=== PATIENT | female | born 1955 | race Caucasian/White ===

== ENCOUNTER 2017-09-30 11:13 | Observation (INO) | payer BC ==
[~2017-09-30] VITALS: Ht 170.2 cm; Wt 205.3 kg
[~2017-09-30 11:13] MED LIST: ADVIN25/60 INH; ALBU1AER9 PO; ATOR10TA82 PO; DICL1GEL28 TOP; ERGO1CAP35 PO; LCHC12280 TOP; LIDO4CRE10 TOP; METF-383 PO; METH5TAB2 PO; NORT10CA2 PO; NRN600 PO; OXGN; OXYC20TA32 PO; PRLSR20 PO; TIOTCAP INH
[2017-09-30 12:12] LABS: BASO % 0.2 %; BASO ABS # 0.03 K/uL (0-0.2); EOS % 1.3 %; EOS ABS # 0.16 K/uL (0-0.5); HEMATOCRIT 38.4 % (37-47); IG# 0.15 K/uL (0.00-0.02); LYMPH % 6.7 %; LYMPH ABS # 0.83 K/uL (1.2-3.4); MEAN CELL VOLUME 83.8 fL (80-100); MEAN CORPUSCULAR HGB CONC 28.6 g/dl (32-36); MONO % 4.3 %; MONO ABS # 0.53 K/uL (0.11-0.59); NEUT % 86.3 %; NEUT ABS # 10.65 K/uL (1.4-6.5); NUCLEATED RED BLOOD CELL ABS 0.03 K/uL (0-0); PLATELET COUNT 287 K/uL (130-400); RED CELL DISTRIBUTION WIDTH CV 17.5 % (11.5-14.5); RED CELL DISTRIBUTION WIDTH SD 53.4 fL (36.4-46.3); WHITE BLOOD COUNT 12.35 K/uL (4.8-10.8)
[2017-09-30 12:16] LABS: ALBUMIN 3.1 gm/dl (3.4-5.0); ALT/SGPT 19 U/L (12-78); AST/SGOT 11 U/L (15-37); BLOOD UREA NITROGEN 12 mg/dl (7-18); CALCIUM 9.7 mg/dl (8.5-10.1); CARBON DIOXIDE 33 mmol/L (21-32); CREATININE 0.87 mg/dl (0.60-1.20); GLUCOSE 69 mg/dl (70-99); LIPASE 71 U/L (73-393); POTASSIUM 4.5 mmol/L (3.5-5.1); SODIUM 136 mmol/L (136-145)
[2017-09-30 12:21] LABS: ALKALINE PHOSPHATASE 98 U/L (45-117); TOTAL PROTEIN 7.7 gm/dl (6.4-8.2)
--- NOTE | 2017-09-30 13:08 | EMERGENCY ROOM VISIT NOTE ---
History Report prepared by Doyle: Nicanor Tovar Under the Supervision of: Dr. Mark Bar M.D. First contact with patient: 11:28 Chief Complaint: SWELLING TO EXTREMITY Stated Complaint: FALL History of Present Illness The patient is a 62 year old female who presents to the Emergency Room brought in by EMS with complaints of an episodic general fall September 22, 2017. She states that she was getting in the car to go to her PCPs office when her legs gave out and buckled underneath her. She states that she twisted her right leg. Per , the patient did not hit her head, though she landed on her knees and then her back. The patient complains of low back pain, right hip pain, bilateral knee, and ankle pain. She currently rates her pain a 10/10 in severity. She states that she cannot lay flat on her back because she cannot breathe. Per , EMS was called out to help her back into her home, though he states they did not offer to take her to the hospital. The patient states that she thought her pain would get better, though it has worsened and that is why she decided to come to the ED. She states that she has not fallen since that time. The patient also has chronic psoriasis that is scaled and crusting along both legs. She states that her skin is not in any pain, although when the EMS team helped her get back into her house they wrapped her in blankets and tore some of the scaling crust off, though the wounds are wrapped in gauze and medical tape. She states that her soaks her skin and takes care of the scales and crusts. She denies following up with a home insurance agent regarding her psoriasis. The patient baseline is ambulating using a wheelchair and pivoting to get into the bed or use the bathroom. She cannot walk at all. She uses at home oxygen at 2L via [place], though the patient has had to use 3L due to increased shortness of breath. The patient has a history of COPD. She is normally on a water pill, though she stopped taking the medication after the fall, because she cannot get up to urinate. She has not been eating or drinking well. She has been avoiding anything that will cause her to urinate. Per , the patients urine is dark in color. She states her sugars have been normal. She is not currently taking any blood thinners. She denies any fevers, chills, cough , congestion, nausea, vomiting, or neck pain. She notes that she regularly takes a stool softener to assist in her bowel movements. Source of History: patient, spouse/significant other Onset: September 22, 2017 Position: other (general ) Symptom Intensity: 04/26 Quality: other (fall) Timing: other (episodic ) Associated Symptoms: + SOB, + back pain, No fevers, No chills, No cough, No neck pain, No nausea, No vomiting Note: She notes right hip pain, bilateral knee and ankle pain. She denies any skin pain. She denies any congestion. Review of Systems See HPI for pertinent positives and negatives. A total of ten systems were reviewed and were otherwise negative. Past Medical & Surgical Medical Problems: (1) Ambulatory dysfunction (2) Anemia (3) Benign essential HTN (4) COPD (chronic obstructive pulmonary disease) (5) COPD exacerbation (6) DM II (diabetes mellitus, type II), controlled (7) HLD (hyperlipidemia) (8) Hypoxia (9) Obesity hypoventilation syndrome (10) ZACKARY (obstructive sleep apnea) Family History Patient reports no known family medical history. Social History Smoking Status: Never Smoker Alcohol Use: none Drug Use: none Marital Status: Housing Status: lives with significant other Occupation Status: other Current/Historical Medications Scheduled Atorvastatin (Lipitor), 10 MG PO HS Carvedilol (Coreg), 3.125 MG PO BIDM Ergocalciferol (Vitamin D 60974 Unit), 100,000 UNIT PO WK Ferrous Fumarate (Iron), 65 MG PO DAILY Fish Oil ([place]-3), 1 CAP PO TID Fluticasone Prop/Salmeterol (Advair Diskus 250/50 60 Dose), 1 PUFF INH BID Furosemide (Lasix), 60 MG PO DAILY Gabapentin (Gabapentin), 600 MG PO TID Insulin Regular (Human) (Humulin R U-500 (Concentr), 0 INJ UD Metformin Hcl (Glucophage), 850 MG PO TIDM Methadone Hcl (Dolophine), 5 MG PO BID Nortriptyline (Pamelor), 10 MG PO TID Tiotropium [place] (Spiriva Handihaler), 18 MCG INH DAILY Scheduled PRN Omeprazole (Prilosec), 20 MG PO QAM PRN for ACID REFLUX Oxycodone Hcl (Oxycodone Hcl), 20 MG PO Q6 PRN for Pain Sennosides-Docusate Sodium (Stool Softener), Unknown Dose for Constipation Allergies Coded Allergies: No Known Allergies (Unverified , 09/30/17) Physical Exam Vital Signs Date Time Temp Pulse Resp B/P (MAP) Pulse Ox O2 Delivery O2 Flow Rate FiO2 09/30/17 14:53 85 20 157/64 98 Nasal Cannula 09/30/17 13:19 84 20 166/65 98 Nasal Cannula 09/30/17 12:14 86 09/30/17 12:08 92 15 148/72 92 Nasal Cannula 5.0 09/30/17 11:48 36.9 91 20 157/92 100 Nasal Cannula 5.0 09/30/17 11:47 98 Nasal Cannula 5.0 09/30/17 11:47 98 Nasal Cannula 5.0 Physical Exam GENERAL: Awake, alert, chronically ill-appearing, in no distress HENT: Normocephalic, atraumatic. Oropharynx dry mucus membranes. EYES: Normal conjunctiva. Sclera non-icteric. NECK: Supple. No nuchal rigidity. FROM. No JVD. RESPIRATORY: Diminished breath sounds throughout. CARDIAC: Regular rate, normal rhythm. Extremities warm and well perfused. Pulses equal. ABDOMEN: Obese abdomen, but soft and nontender, non-distended. No rebound or guarding. No masses. RECTAL: Deferred. MUSCULOSKELETAL: Chest examination reveals no tenderness. The back is symmetrical on inspection without obvious abnormality. There is no CVA tenderness to palpation. No joint edema. LOWER EXTREMITIES: Tenderness to right hip, knee, and lower leg as well as left knee and lower leg. Pain with ROM bilaterally. NEURO: Normal sensorium. No sensory or motor deficits noted. SKIN: Diffuse severe psoriasis with thick scaling and plaques. Medical Decision & Procedures ER Provider Diagnostic Interpretation: Radiology results as stated below per my review and radiologist interpretation: L KNEE 1 OR 2 VIEWS ROUTINE CLINICAL HISTORY: Fall. Bilateral lower external pain. COMPARISON: None FINDINGS: This exam is significantly compromised due to difficulty with patient positioning and suboptimal penetration related to body. Sensitivity for detection of fractures diminished but none is identified. There is moderate medial and patellofemoral compartment osteoarthritis. IMPRESSION: 1. Technically compromised exam with decreased sensitivity for fracture detection. However, no fracture identified. 2. Moderate osteoarthritis of the medial and patellofemoral compartments of the left knee. Electronically signed by: Dmitriy Gomez M.D. 09/30/2017 1:25 PM Dictated Date/Time: 09/30/2017 1:24 PM R HIP UNILATERAL 1 VIEW CLINICAL HISTORY: 62 years-old Female presenting with FALL. TECHNIQUE: Single frog-leg lateral view of the right hip was obtained. COMPARISON: None. FINDINGS: Grossly limited image quality secondary to body habitus. The right hip cannot be assessed. IMPRESSION: Insufficient image quality secondary to body habitus for assessment of the right hip. Electronically signed by: Bo Samson M.D. 09/30/2017 1:23 PM Dictated Date/Time: 09/30/2017 1:23 PM R KNEE 1 OR 2 VIEWS ROUTINE CLINICAL HISTORY: 62 years-old Female presenting with FALL. TECHNIQUE: Frontal and lateral views of the right knee were obtained. COMPARISON: None. FINDINGS: Tricompartmental degenerative changes. Suboptimal image quality secondary to positioning and body habitus. Osteopenia. No gross evidence of a displaced fracture allowing for image quality. Medial joint space loss. IMPRESSION: 1. Significantly limited image quality which negatively impacts diagnostic sensitivity the exam secondary to patient body habitus and suboptimal positioning. 2. No gross evidence of a displaced fracture. 3. Tricompartmental degenerative changes most severe in the medial compartment. Electronically signed by: Bo Samson M.D. 09/30/2017 1:25 PM Dictated Date/Time: 09/30/2017 1:24 PM CHEST ONE VIEW PORTABLE CLINICAL HISTORY: Chest pain. COMPARISON STUDY: Chest radiograph and chest CT September 22, 2015. FINDINGS: Exam is compromised due to body habitus. Diffuse interstitial thickening is noted. There is mild to moderate enlargement of the cardiac silhouette. Apparent hazy left basilar opacity is probably artifactual. Linear lower lung opacities reflect atelectasis. There is no pneumothorax. IMPRESSION: 1. Interstitial thickening which may reflect mild pleural edema. 2. Technically compromised exam due to body habitus. 3. Apparent hazy left basilar opacity which is likely artifactual. 4. Linear bibasilar opacities suggestive of atelectasis. Electronically signed by: Dmitriy Gomez M.D. 09/30/2017 1:24 PM Dictated Date/Time: 09/30/2017 1:22 PM R TIBIA/FIBULA 2 VIEWS ROUTINE CLINICAL HISTORY: 62 years-old Female presenting with pain fall. TECHNIQUE: Frontal and lateral views of the right lower leg were obtained. COMPARISON: None. FINDINGS: The proximal portion of the tibia and fibula are excluded from the [id number]. Image quality is degraded by patient body habitus. Diffusely abnormal cutis possibly indicating venous stasis. No gross evidence of a displaced fracture. Ankle mortise is grossly intact. Prominent enthesophyte at the origin of the plantar fascia. IMPRESSION: Limited image quality. Allowing for this, no gross evidence of a fracture. Electronically signed by: Bo Samson M.D. 09/30/2017 1:26 PM Dictated Date/Time: 09/30/2017 1:25 PM L TIBIA/FIBULA 2 VIEWS ROUTINE CLINICAL HISTORY: Bilateral lower external pain following fall. COMPARISON: None FINDINGS: No acute fracture of the left tibia or fibula is identified. The proximal left tibia and fibula are visualized on the knee radiographs. Exam is compromised due to body habitus. There is moderate plantar calcaneal spurring. IMPRESSION: Technically compromised exam due to body habitus but no acute fracture of the left tibia or fibula visualized. Electronically signed by: Dmitriy Gomez M.D. 09/30/2017 1:27 PM Dictated Date/Time: 09/30/2017 1:26 PM Laboratory Results 09/30/17 11:50 Red Blood Count 4.58, Mean Corpuscular Volume 83.8, Mean Corpuscular Hemoglobin 24.0, Mean Corpuscular Hemoglobin Concent 28.6, Mean Platelet Volume 9.0, Neutrophils (%) (Auto) 86.3, Lymphocytes (%) (Auto) 6.7, Monocytes (%) (Auto) 4.3, Eosinophils (%) (Auto) 1.3, Basophils (%) (Auto) 0.2, Neutrophils # (Auto) 10.65, Lymphocytes # (Auto) 0.83, Monocytes # (Auto) 0.53, Eosinophils # (Auto) 0.16, Basophils # (Auto) 0.03 09/30/17 11:50 Test 09/30/17 11:50 09/30/17 12:05 White Blood Count 12.35 K/uL (4.8-10.8) Red Blood Count 4.58 M/uL (4.2-5.4) Hemoglobin 11.0 g/dL (12.0-16.0) Hematocrit 38.4 % (37-47) Mean Corpuscular Volume 83.8 fL (80-100) Mean Corpuscular Hemoglobin 24.0 pg (25-34) Mean Corpuscular Hemoglobin Concent 28.6 g/dl (32-36) Platelet Count 287 K/uL (130-400) Mean Platelet Volume 9.0 fL (7.4-10.4) Neutrophils (%) (Auto) 86.3 % Lymphocytes (%) (Auto) 6.7 % Monocytes (%) (Auto) 4.3 % Eosinophils (%) (Auto) 1.3 % Basophils (%) (Auto) 0.2 % Neutrophils # (Auto) 10.65 K/uL (1.4-6.5) Lymphocytes # (Auto) 0.83 K/uL (1.2-3.4) Monocytes # (Auto) 0.53 K/uL (0.11-0.59) Eosinophils # (Auto) 0.16 K/uL (0-0.5) Basophils # (Auto) 0.03 K/uL (0-0.2) RDW Standard Deviation 53.4 fL (36.4-46.3) RDW Coefficient of Variation 17.5 % (11.5-14.5) Immature Granulocyte % (Auto) 1.2 % Immature Granulocyte # (Auto) 0.15 K/uL (0.00-0.02) Nucleated RBC Absolute Count (auto) 0.03 K/uL (0-0) Nucleated Red Blood Cells % 0.2 % Prothrombin Time 10.3 SECONDS (9.0-12.0) Prothromb Time International Ratio 1.0 (0.9-1.1) Anion Gap 4.0 mmol/L (3-11) Estimated GFR () 83.3 Estimated GFR (Non- 71.9 BUN/Creatinine Ratio 14.0 (10-20) Calcium Level 9.7 mg/dl (8.5-10.1) Total Bilirubin 0.6 mg/dl (0.2-1) Direct Bilirubin 0.2 mg/dl (0-0.2) Aspartate Amino Transf (AST/SGOT) 11 U/L (15-37) Alanine Aminotransferase (ALT/SGPT) 19 U/L (12-78) Alkaline Phosphatase 98 U/L (45-117) Troponin I 0.042 ng/ml (0-0.045) Pro-B-Type Natriuretic Peptide 1536 pg/ml (0-900) Total Protein 7.7 gm/dl (6.4-8.2) Albumin 3.1 gm/dl (3.4-5.0) Lipase 71 U/L (73-393) Hepatitis C Antibody Screen NEG (NEG) Urine Color YELLOW Urine Appearance CLOUDY (CLEAR) Urine pH 7.5 (4.5-7.5) Urine Specific [place] 1.019 (1.000-1.030) Urine Protein NEG (NEG) Urine Glucose (UA) NEG (NEG) Urine Ketones NEG (NEG) Urine Occult Blood 1+ (NEG) Urine Nitrite POS (NEG) Urine Bilirubin NEG (NEG) Urine Urobilinogen POS (NEG) Urine Leukocyte Esterase TRACE (NEG) Urine WBC (Auto) 1-5 /hpf (0-5) Urine RBC (Auto) 0-4 /hpf (0-4) Urine Hyaline Casts (Auto) 1-5 /lpf (0-5) Urine Epithelial Cells (Auto) >30 /lpf (0-5) Urine Bacteria (Auto) 4+ (NEG) Laboratory results reviewed by me Medications Administered Medications (Trade) Dose Ordered Sig/Wes Route Start Time Stop Time Status Last Admin Dose Admin Oxycodone HCl (Roxicodone Immediate Rel Tab) 20 mg NOW STAT PO 09/30/17 13:18 09/30/17 13:19 DC 09/30/17 13:26 20 MG Acetaminophen (Tylenol Tab) 650 mg Q4H PRN PO 09/30/17 17:15 10/30/17 17:14 18 18:31 650 MG Oxycodone HCl (Roxicodone Immediate Rel Tab) 20 mg Q6 PRN PO 09/30/17 17:15 10/30/17 17:14 09/30/17 21:23 20 MG ECG Per My Interpretation Indication: SOB/dyspnea Rate (beats per minute): 92 Rhythm: normal sinus Findings: no acute ischemic change, other (Normal axis) ED Course 1131: The patient was evaluated in room C2B. A complete history and physical exam was performed. 1505: I reassessed the patient at this time. The patient refused a CT scan. She states that her hip pain has resolved. She notes her knees and ankles still hurt. The patient would like to go to rehab. 1526: I spoke with Dr. Harrison [facility] hospitalist. We discussed the patient's case. The patient will be evaluated by the [facility] for further management. 1630: I spoke with Dr. Harrison [facility] hospitalist. We discussed the patient's case. I updated her on the patient's status. 1526: I spoke with Franchesca Ruiz PA-C [facility] hospitalist. We discussed the patient's case. The patient will be evaluated by the [facility] for further management. Medical Decision I reviewed the patient's past medical history, medications, and the nursing notes as described above. Differential diagnosis: Etiologies such as fracture, dislocation, intra-abdominal, pneumothorax, intrathoracic , intracranial, neurologic, infections, reactive airway disease, pneumonia, COPD, CHF, cardiac ischemia, pulmonary embolism, musculoskeletal, gastrointestinal, as well as other traumatic pathologies were entertained. The patient is a 62 y/o woman with a pmhx of morbid obesity, IDDM2, COPD on 3L home O2, CHF, psoriasis presents to the emergency department with complaining of b/l knee after having a mechanical fall 9 days [employer] when attempting to get in a car and fell to the ground per HPI. Patient reports waiting until today to come to the ED because she hoped her pain would get better and instead she has avoided getting up at all 2/2 pain. Her baseline mobility is normally minimal with transfers only but now she is unable to even do that and so stopped taking her Lasix because she can't get to the bathroom. On arrival the patient is chronically ill appearing in NAD, AFVSS. Hypoglycemic on arrival in the setting of her insulin pump, which improved with juice. WBC 12, nonspecific. BNP 1500s. CXR with no significant overload and patient is at her baseline O2. UA dirty and patient without urinary sx. Will defer treatment at this time. Plain films of b/l knee and Tib-fib negative for fx. Hip and pelvis nondiagnostic 2/[address] abd/pel attempted but patient unable to tolerate lying flat despite attempting with Bipap. Patient explains that she only had hip pain from sitting on the stretcher and did not have hip pain after her fall. Thus w/u, unremarkable. However, given patient's knee pain likely sprain/ contusion she is unable to make transfers at her baseline. Thus, attempt to place patient into rehab directly from ED however given the patient's obesity with weight > 400lbs unable to place today. Thus, will admit for PT/OT eval and placement. Case was d/w JUSTIN Copeland hospitalist, who will admit the patient for further management. Medication Reconcilliation Current Medication List: was personally reviewed by me Blood Pressure Screening Patient's blood pressure: Elevated blood pressure Blood pressure disposition: Elevated BP felt to be situational Consults Time Called: 1526 Consulting Physician: JUSTIN Copeland hospitalist I spoke with JUSTIN Copeland hospitalholly. We discussed the patient's case. The patient will be evaluated by the [facility] for further management. 1630: I spoke with JUSTIN Copeland hospitalholly. We discussed the patient's case. I updated her on the patient's status. Additional Consults: Time Called: 1526 Consulted Physician: ARMANDO Curran hospitalholly Additional Comments: I spoke with ARMANDO Curran hospitalholly. We discussed the patient's case. The patient will be evaluated by the [facility] for further management. Impression Primary Impression: Knee sprain, bilateral Additional Impression: Generalized weakness Scribe Attestation The scribe's documentation has been prepared under my direction and personally reviewed by me in its entirety. I confirm that the note above accurately reflects all work, treatment, procedures, and medical decision making performed by me. Departure Information Dispostion Being Evaluated By Hospitalist Referrals Beatriz Lynne MD (PCP) Patient Instructions My [facility] Problem Qualifiers
[2017-09-30] MEDS ORDERED: OXYCODONE HCL IR 5 MG TAB (IMMEDIATE RELEASE) PO STA (13:18)
--- NOTE | 2017-09-30 13:25 | DIAGNOSTIC IMAGING REPORT ---
CHEST ONE VIEW PORTABLE CLINICAL HISTORY: Chest pain. COMPARISON STUDY: Chest radiograph and chest CT September 22, 2015. FINDINGS: Exam is compromised due to body habitus. Diffuse interstitial thickening is noted. There is mild to moderate enlargement of the cardiac silhouette. Apparent hazy left basilar opacity is probably artifactual. Linear lower lung opacities reflect atelectasis. There is no pneumothorax. IMPRESSION: 1. Interstitial thickening which may reflect mild pleural edema. 2. Technically compromised exam due to body habitus. 3. Apparent hazy left basilar opacity which is likely artifactual. 4. Linear bibasilar opacities suggestive of atelectasis. Electronically signed by: Dmitriy Gomez M.D. 09/30/2017 1:24 PM Dictated Date/Time: 09/30/2017 1:22 PM
--- NOTE | 2017-09-30 13:25 | DIAGNOSTIC IMAGING REPORT ---
R HIP UNILATERAL 1 VIEW CLINICAL HISTORY: 62 years-old Female presenting with FALL. TECHNIQUE: Single frog-leg lateral view of the right hip was obtained. COMPARISON: None. FINDINGS: Grossly limited image quality secondary to body habitus. The right hip cannot be assessed. IMPRESSION: Insufficient image quality secondary to body habitus for assessment of the right hip. Electronically signed by: Bo Samson M.D. 09/30/2017 1:23 PM Dictated Date/Time: 09/30/2017 1:23 PM
--- NOTE | 2017-09-30 13:26 | DIAGNOSTIC IMAGING REPORT ---
L KNEE 1 OR 2 VIEWS ROUTINE CLINICAL HISTORY: Fall. Bilateral lower external pain. COMPARISON: None FINDINGS: This exam is significantly compromised due to difficulty with patient positioning and suboptimal penetration related to body. Sensitivity for detection of fractures diminished but none is identified. There is moderate medial and patellofemoral compartment osteoarthritis. IMPRESSION: 1. Technically compromised exam with decreased sensitivity for fracture detection. However, no fracture identified. 2. Moderate osteoarthritis of the medial and patellofemoral compartments of the left knee. Electronically signed by: Dmitriy Gomez M.D. 09/30/2017 1:25 PM Dictated Date/Time: 09/30/2017 1:24 PM
--- NOTE | 2017-09-30 13:26 | DIAGNOSTIC IMAGING REPORT ---
R KNEE 1 OR 2 VIEWS ROUTINE CLINICAL HISTORY: 62 years-old Female presenting with FALL. TECHNIQUE: Frontal and lateral views of the right knee were obtained. COMPARISON: None. FINDINGS: Tricompartmental degenerative changes. Suboptimal image quality secondary to positioning and body habitus. Osteopenia. No gross evidence of a displaced fracture allowing for image quality. Medial joint space loss. IMPRESSION: 1. Significantly limited image quality which negatively impacts diagnostic sensitivity the exam secondary to patient body habitus and suboptimal positioning. 2. No gross evidence of a displaced fracture. 3. Tricompartmental degenerative changes most severe in the medial compartment. Electronically signed by: Bo Samson M.D. 09/30/2017 1:25 PM Dictated Date/Time: 09/30/2017 1:24 PM
--- NOTE | 2017-09-30 13:28 | DIAGNOSTIC IMAGING REPORT ---
L TIBIA/FIBULA 2 VIEWS ROUTINE CLINICAL HISTORY: Bilateral lower external pain following fall. COMPARISON: None FINDINGS: No acute fracture of the left tibia or fibula is identified. The proximal left tibia and fibula are visualized on the knee radiographs. Exam is compromised due to body habitus. There is moderate plantar calcaneal spurring. IMPRESSION: Technically compromised exam due to body habitus but no acute fracture of the left tibia or fibula visualized. Electronically signed by: Dmitriy Gomez M.D. 09/30/2017 1:27 PM Dictated Date/Time: 09/30/2017 1:26 PM
--- NOTE | 2017-09-30 13:28 | DIAGNOSTIC IMAGING REPORT ---
R TIBIA/FIBULA 2 VIEWS ROUTINE CLINICAL HISTORY: 62 years-old Female presenting with pain fall. TECHNIQUE: Frontal and lateral views of the right lower leg were obtained. COMPARISON: None. FINDINGS: The proximal portion of the tibia and fibula are excluded from the [id number]. Image quality is degraded by patient body habitus. Diffusely abnormal cutis possibly indicating venous stasis. No gross evidence of a displaced fracture. Ankle mortise is grossly intact. Prominent enthesophyte at the origin of the plantar fascia. IMPRESSION: Limited image quality. Allowing for this, no gross evidence of a fracture. Electronically signed by: Bo Samson M.D. 09/30/2017 1:26 PM Dictated Date/Time: 09/30/2017 1:25 PM
[2017-09-30] MEDS ORDERED: OPTIRAY 320 IV PRN (14:00)
[2017-09-30] MEDS ORDERED: FERR18TA2 PO (14:02)
[2017-09-30] MEDS ORDERED: SPRIN/30 INH (14:02)
[2017-09-30] MEDS ORDERED: SENNTAB23 (14:02)
[2017-09-30] MEDS ORDERED: ADVIN25/60 INH (14:02)
[2017-09-30] MEDS ORDERED: ERGO500037 PO (14:02)
[2017-09-30] MEDS ORDERED: FRS/40 PO (17:11)
[2017-09-30] MEDS ORDERED: INSUINJ2 INJ (17:11)
[2017-09-30] MEDS ORDERED: CARV3.122 PO (17:11)
[2017-09-30] MEDS ORDERED: DEXTROSE 50% 50 ML SYR IV PRN (17:15)
[2017-09-30] MEDS ORDERED: ONDANSETRON INJ 2 MG/ML 2 ML VIAL IV PRN (17:15)
[2017-09-30] MEDS ORDERED: GLUCOSE 40% GEL 15 GM TUBE PO PRN (17:15)
[2017-09-30] MEDS ORDERED: MAGNESIUM HYDROXIDE SUSP 30 ML UDC PO PRN (17:15)
[2017-09-30] MEDS ORDERED: GLUCAGON FOR INJ 1 MG VIAL SQ PRN (17:15)
[2017-09-30] MEDS ORDERED: GLUCOSE 10 TABS/TUBE PO PRN (17:15)
--- NOTE | 2017-09-30 17:42 | History and Physical ---
History & Physical Date & Time of Service: Sep 30, 2017 at 17:03 Chief Complaint: FALL Primary Care Physician: Emilia Posada DO History of Present Illness This is a 62 yo F with PMHx of diabetes type 2 on insulin pump and metformin, CKD stage III, hypertension, hyperlipidemia, severe psoriasis, COPD, wears chronic supplemental oxygen at 2 L via NC, anemia, morbid obesity, obesity hypoventilation syndrome, chronic pain, osteo-arthritis who presents to the ER after a fall she sustained on September 22. At that time the patient was attempting to ambulate and pivot to get into the car to go to a doctor's appointment. She reports being unable to ambulate on her own for some time now, and is essentially wheelchair bound. In the past 4 days her right knee pain has become so significant she has been unable to pivot at all. She has also stopped taking her Lasix as normally scheduled because she has been unable to pivot and therefore cannot get to the bathroom. Her last bowel movement was 8 days ago as well. Her oral intake has been poor although she has been maintaining fluid intake. The patient was attempted to be placed in rehab by case management in the ER, however there are no available rehab facilities which can accommodate her due to morbid obesity. UA appears slightly dirty, however the patient denies any urinary symptoms. A Barboza has been placed in the ER due to inability to ambulate to the bathroom. Past Medical/Surgical History Medical Problems: (1) Ambulatory dysfunction (2) Anemia (3) Benign essential HTN (4) COPD (chronic obstructive pulmonary disease) (5) Morbid obesity (6) DM II (diabetes mellitus, type II), controlled (7) HLD (hyperlipidemia) (8) Hypoxia (9) Obesity hypoventilation syndrome (10) ZACKARY (obstructive sleep apnea) Family History FHx: COPD (chronic obstructive pulmonary disease) FHx: ovarian cancer FHx: prostate cancer Social History Smoking Status: Never Smoker Smokeless Tobacco Use: No Alcohol Use: none Drug Use: none Marital Status: Occupational Status: other Allergies Coded Allergies: No Known Allergies (Unverified , 09/30/17) Home Medications Scheduled Atorvastatin (Lipitor), 10 MG PO HS Carvedilol (Coreg), 3.125 MG PO BIDM Ergocalciferol (Vitamin D 68787 Unit), 100,000 UNIT PO WK Ferrous Fumarate (Iron), 65 MG PO DAILY Fish Oil (Hamilton-3), 1 CAP PO TID Fluticasone Prop/Salmeterol (Advair Diskus 250/50 60 Dose), 1 PUFF INH BID Furosemide (Lasix), 60 MG PO DAILY Gabapentin (Gabapentin), 600 MG PO TID Insulin Regular (Human) (Humulin R U-500 (Concentr), 0 INJ UD Metformin Hcl (Glucophage), 850 MG PO TIDM Methadone Hcl (Dolophine), 5 MG PO BID Nortriptyline (Pamelor), 10 MG PO TID Tiotropium [place] (Spiriva Handihaler), 18 MCG INH DAILY Scheduled PRN Omeprazole (Prilosec), 20 MG PO QAM PRN for ACID REFLUX Oxycodone Hcl (Oxycodone Hcl), 20 MG PO Q6 PRN for Pain Sennosides-Docusate Sodium (Stool Softener), Unknown Dose for Constipation Review of Systems Constitutional: No fever, sweats or chills Eyes: No diplopia, no worsening or blurred vision ENT: normal hearing, no trouble swallowing Respiratory: No cough, sputum, dyspnea at rest or on exertion Cardiovascular: No chest pain, tightness or palpitations Abdomen: No pain, nausea, vomiting, diarrhea or constipation Musculoskeletal: See HPI Neurologic: + weakness, + numbness/tingling in extremities, uses wheelchair for ambulation Psychiatric: No anxiety or depression Skin: No rash or itch Physical Exam Vital Signs Date Time Temp Pulse Resp B/P (MAP) Pulse Ox O2 Delivery O2 Flow Rate FiO2 09/30/17 14:53 85 20 157/64 98 Nasal Cannula 09/30/17 13:19 84 20 166/65 98 Nasal Cannula 09/30/17 12:14 86 09/30/17 12:08 92 15 148/72 92 Nasal Cannula 5.0 09/30/17 11:48 36.9 91 20 157/92 100 Nasal Cannula 5.0 09/30/17 11:47 98 Nasal Cannula 5.0 09/30/17 11:47 98 Nasal Cannula 5.0 General: awake, alert, no apparent distress, morbidly obese Head: Normocephalic, atraumatic ENT: PERRL, EOMI, no pharyngeal exudate, mucous membranes moist Chest: Clear to auscultation, on room air, no adventitious breath sounds Cardiac: Regular rate and rhythm, + systolic murmur, no JVD, normal peripheral pulses, good capillary refill Abdominal: NABS x 4 quadrants, soft, nontender to palpation, no rebound, guarding or tenderness Extremities: + severe psoriasis with plaques overlying BLE and mild plaques over the elbows and forearms. + Peripheral edema but difficult to assess due to plaques and body habitus. No erythema, calfs nontender to palpation Psych: Normal mood and affect Neuro: AAO x 3, pt is unable to stand for weight or to work with PT/OT, speech is clear, + diminished sensation to light touch in BLE and hands. Diagnostics Laboratory Results Results Past 24 Hours Test 09/30/17 11:50 09/30/17 12:05 09/30/17 13:30 09/30/17 14:07 Range/Units White Blood Count 12.35 4.8-10.8 K/uL Red Blood Count 4.58 4.2-5.4 M/uL Hemoglobin 11.0 12.0-16.0 g/dL Hematocrit 38.4 37-47 % Mean Corpuscular Volume 83.8 80-100 fL Mean Corpuscular Hemoglobin 24.0 25-34 pg Mean Corpuscular Hemoglobin Concent 28.6 32-36 g/dl Platelet Count 287 130-400 K/uL Mean Platelet Volume 9.0 7.4-10.4 fL Neutrophils (%) (Auto) 86.3 % Lymphocytes (%) (Auto) 6.7 % Monocytes (%) (Auto) 4.3 % Eosinophils (%) (Auto) 1.3 % Basophils (%) (Auto) 0.2 % Neutrophils # (Auto) 10.65 1.4-6.5 K/uL Lymphocytes # (Auto) 0.83 1.2-3.4 K/uL Monocytes # (Auto) 0.53 0.11-0.59 K/uL Eosinophils # (Auto) 0.16 0-0.5 K/uL Basophils # (Auto) 0.03 0-0.2 K/uL RDW Standard Deviation 53.4 36.4-46.3 fL RDW Coefficient of Variation 17.5 11.5-14.5 % Immature Granulocyte % (Auto) 1.2 % Immature Granulocyte # (Auto) 0.15 0.00-0.02 K/uL Nucleated RBC Absolute Count (auto) 0.03 0-0 K/uL Nucleated Red Blood Cells % 0.2 % Sodium Level 136 136-145 mmol/L Potassium Level 4.5 3.5-5.1 mmol/L Chloride Level 99 98-107 mmol/L Carbon Dioxide Level 33 21-32 mmol/L Anion Gap 4.0 3-11 mmol/L Blood Urea Nitrogen 12 7-18 mg/dl Creatinine 0.87 0.60-1.20 mg/dl Estimated GFR () 83.3 Estimated GFR (Non- 71.9 BUN/Creatinine Ratio 14.0 10-20 Random Glucose 69 70-99 mg/dl Calcium Level 9.7 8.5-10.1 mg/dl Total Bilirubin 0.6 0.2-1 mg/dl Direct Bilirubin 0.2 0-0.2 mg/dl Aspartate Amino Transf (AST/SGOT) 11 15-37 U/L Alanine Aminotransferase (ALT/SGPT) 19 12-78 U/L Alkaline Phosphatase 98 45-117 U/L Troponin I 0.042 0-0.045 ng/ml Pro-B-Type Natriuretic Peptide 1536 0-900 pg/ml Total Protein 7.7 6.4-8.2 gm/dl Albumin 3.1 3.4-5.0 gm/dl Lipase 71 73-393 U/L Urine Color YELLOW Urine Appearance CLOUDY CLEAR Urine pH 7.5 4.5-7.5 Urine Specific Esmond 1.019 1.000-1.030 Urine Protein NEG NEG Urine Glucose (UA) NEG NEG Urine Ketones NEG NEG Urine Occult Blood 1+ NEG Urine Nitrite POS NEG Urine Bilirubin NEG NEG Urine Urobilinogen POS NEG Urine Leukocyte Esterase TRACE NEG Urine WBC (Auto) 1-5 0-5 /hpf Urine RBC (Auto) 0-4 0-4 /hpf Urine Hyaline Casts (Auto) 1-5 0-5 /lpf Urine Epithelial Cells (Auto) >30 0-5 /lpf Urine Bacteria (Auto) 4+ NEG Bedside Glucose 40 70 70-90 mg/dl Test 09/30/17 14:47 Range/Units Bedside Glucose 91 70-90 mg/dl Microbiology Results 09/30/17 Urine Culture, Received Pending Diagnostic Radiology L TIBIA/FIBULA 2 VIEWS ROUTINE CLINICAL HISTORY: Bilateral lower external pain following fall. COMPARISON: None FINDINGS: No acute fracture of the left tibia or fibula is identified. The proximal left tibia and fibula are visualized on the knee radiographs. Exam is compromised due to body habitus. There is moderate plantar calcaneal spurring. IMPRESSION: Technically compromised exam due to body habitus but no acute fracture of the left tibia or fibula visualized. Electronically signed by: Dmitriy Gomez M.D. 09/30/2017 1:27 PM Dictated Date/Time: 09/30/2017 1:26 PM The status of this report is Signed. R TIBIA/FIBULA 2 VIEWS ROUTINE CLINICAL HISTORY: 62 years-old Female presenting with pain fall. TECHNIQUE: Frontal and lateral views of the right lower leg were obtained. COMPARISON: None. FINDINGS: The proximal portion of the tibia and fibula are excluded from the apkgx-gn-lmax. Image quality is degraded by patient body habitus. Diffusely abnormal cutis possibly indicating venous stasis. No gross evidence of a displaced fracture. Ankle mortise is grossly intact. Prominent enthesophyte at the origin of the plantar fascia. IMPRESSION: Limited image quality. Allowing for this, no gross evidence of a fracture. Electronically signed by: Bo Samson M.D. 09/30/2017 1:26 PM Dictated Date/Time: 09/30/2017 1:25 PM The status of this report is Signed. CHEST ONE VIEW PORTABLE CLINICAL HISTORY: Chest pain. COMPARISON STUDY: Chest radiograph and chest CT September 22, 2015. FINDINGS: Exam is compromised due to body habitus. Diffuse interstitial thickening is noted. There is mild to moderate enlargement of the cardiac silhouette. Apparent hazy left basilar opacity is probably artifactual. Linear lower lung opacities reflect atelectasis. There is no pneumothorax. IMPRESSION: 1. Interstitial thickening which may reflect mild pleural edema. 2. Technically compromised exam due to body habitus. 3. Apparent hazy left basilar opacity which is likely artifactual. 4. Linear bibasilar opacities suggestive of atelectasis. Electronically signed by: Dmitriy Gomez M.D. 09/30/2017 1:24 PM Dictated Date/Time: 09/30/2017 1:22 PM The status of this report is Signed. R KNEE 1 OR 2 VIEWS ROUTINE CLINICAL HISTORY: 62 years-old Female presenting with FALL. TECHNIQUE: Frontal and lateral views of the right knee were obtained. COMPARISON: None. FINDINGS: Tricompartmental degenerative changes. Suboptimal image quality secondary to positioning and body habitus. Osteopenia. No gross evidence of a displaced fracture allowing for image quality. Medial joint space loss. IMPRESSION: 1. Significantly limited image quality which negatively impacts diagnostic sensitivity the exam secondary to patient body habitus and suboptimal positioning. 2. No gross evidence of a displaced fracture. 3. Tricompartmental degenerative changes most severe in the medial compartment. Electronically signed by: Bo Samson M.D. 09/30/2017 1:25 PM Dictated Date/Time: 09/30/2017 1:24 PM The status of this report is Signed. R HIP UNILATERAL 1 VIEW CLINICAL HISTORY: 62 years-old Female presenting with FALL. TECHNIQUE: Single frog-leg lateral view of the right hip was obtained. COMPARISON: None. FINDINGS: Grossly limited image quality secondary to body habitus. The right hip cannot be assessed. IMPRESSION: Insufficient image quality secondary to body habitus for assessment of the right hip. Electronically signed by: Bo Samson M.D. 09/30/2017 1:23 PM Dictated Date/Time: 09/30/2017 1:23 PM The status of this report is Signed. EKG Normal sinus rhythm Normal ECG When compared with ECG of 21-JUN-2016 18:37, No significant change was found Confirmed by TRUDI MEDINA ([id number]) on 09/30/2017 12:36:36 PM Vent. rate 92 BPM VA interval 166 ms QRS duration 90 ms QT/QTc 368/455 ms P-R-T axes 54 34 54 Impression Assessment and Plan This is a 62 yo F with PMHx of diabetes type 2 on insulin pump and metformin, CKD stage III, hypertension, hyperlipidemia, severe psoriasis, COPD, wears chronic supplemental oxygen at 2 L via NC, anemia, morbid obesity, obesity hypoventilation syndrome, chronic pain, osteo-arthritis who presents to the ER after a fall she sustained on September 22. S/p Fall Joint Pain - Admit for obs for placement to rehab - PT/OT on board - Pain management with home medications including methadone, oxycodone which she uses for chronic pain. - Imaging reviewed - negative for any acute fractures DM II - Glycemic pharmacy consult - poor diet has caused glucose to drop down into the 40s upon presentation to the ER, improved up to 90. Insulin pump in place on hold for hypoglycemia CKD stage III - Cr. stable 0.87 upon admission - likely improved due to missing lasix dose for several days. - Resume lasix and trend prp QOD. ? UTI - UA appears dirty. Possibly poor sample per nursing due to body habitus. Await Urine culture. - No antibiotics at this time. WBC 12K, afebrile. No urinary symptoms Constipation - bowel regimen with miralax daily, dulcolax tabs. Can use MOM prn. HTN HLD - Continue coreg, lasix 60 mg PO daily, will give lasix 40 mg IV as she has missed several doses and has a barboza cath in place now. She admits to feeling slightly more short of breath and O2 increased from 2 L to 2.5-3L at home prior to coming here. COPD - Continue chronic o2 at 2L, Advair, spiriva. No wheezing upon exam. Severe psoriasis - PT does not follow with dermatology as an outpatient. Would recommend this be followed up upon discharge from the hospital. DVT ppx: lovenox CODE STATUS: FULL CODE Disposition: From home, PT/OT ROSARIO foreman to assist with dc planning to rehab facility. CM in ER unable to place due to morbid obesity and facility accommodations. Resuscitation Status VTE Prophylaxis Will order VTE Prophylaxis: Yes Reviewed: Pt Seen/Exam by Me History Pt is s/p fall several days ago and worsening pain that has caused increased ambulatory dysfxn. States that she has pain all of the time but that this is worse. Tolerating PO without issue. Denies chest pain, SOB. Agree with HPI/ROS as noted by PA. General Appearance: no apparent distress, obese Eye Exam: bilateral eye normal inspection, bilateral eye other (nml sclera) Respiratory: normal breath sounds, no respiratory distress Cardiovascular: normal peripheral pulses, regular rate, rhythm Gastrointestinal: non tender, soft Extremities: other (chronic LE edema, TTP related to plaques) Neurologic/Psychiatric: alert, oriented x 3 Skin Characteristics: warm/dry, other (scaling c/w plaque psoriasis) Assessment/Plan Agree with plan as outlined above Weakness and ambulatory dysfxn s/p fall in the setting of morbid obesity and OA Attempted placement from the ED, however no rehab facility in the region is equipped for pts with this level of morbid obesity CM to continue working on this as able
[2017-09-30] MEDS ORDERED: BISACODYL 10 MG SUPP PR PRN (17:45)
[2017-09-30] MEDS ORDERED: OMEG10007 PO (17:56)
[2017-09-30] MEDS ORDERED: PHARMACY GLYCEMIC MGMT CONSULT PRN (17:57)
[2017-09-30] MEDS: ACETAMINOPHEN 325 MG TAB PO PRN (18:31)
[2017-09-30] MEDS ORDERED: IV FLUIDS COMPLETED PRN (20:30)
[2017-09-30] MEDS ORDERED: FUROSEMIDE INJ 40 MG in SYRINGE 0 ML IV ONE (21:00)
[2017-09-30] MEDS ORDERED: BISACODYL 5 MG TABEC PO ONE (21:00)
[2017-09-30] MEDS: METHADONE HCL 5 MG TAB PO SCH (21:23)
[2017-09-30] MEDS: OXYCODONE HCL IR 5 MG TAB (IMMEDIATE RELEASE) PO PRN (21:23)
[2017-09-30] MEDS: FLUTICASONE/SALMETEROL 250/50 (ADVAIR) 14 PUFF/1 INHALER INH SCH (21:25)
[2017-09-30] MEDS: ATORVASTATIN 10 MG TAB PO SCH (21:25)
[2017-09-30] MEDS: OMEGA-3 (PURIFIED FISH OIL) 1 GM CAP PO SCH (21:26)
[2017-09-30] MEDS: NORTRIPTYLINE HCL 10 MG CAP PO SCH (21:26)
[2017-09-30] MEDS: CARVEDILOL 3.125 MG TAB PO SCH (21:27)
[2017-09-30] MEDS: GABAPENTIN 600 MG TAB PO SCH (21:27)
[2017-09-30] MEDS: ENOXAPARIN 40 MG/0.4 ML SYR SQ SCH (21:33)
[2017-09-30 21:44] VITALS: BP 177/72; PULSE 79; TEMP 36.7; O2SAT 98
[2017-09-30 21:49] VITALS: BMI 70.9
[2017-09-30 23:03] VITALS: BP 164/69; PULSE 79; TEMP 36.6; O2SAT 98
[2017-10-01] MEDS: INSULIN ASPART 100 UNITS/ML 3 ML PEN SC SCH ×6 (01:37→21:52)
[2017-10-01] MEDS: ACETAMINOPHEN 325 MG TAB PO PRN ×3 (03:07→18:32)
[2017-10-01] MEDS: OXYCODONE HCL IR 5 MG TAB (IMMEDIATE RELEASE) PO PRN ×4 (03:43→23:45)
[2017-10-01 07:22] LABS: CALCIUM 9.3 mg/dl (8.5-10.1); CREATININE 1.05 mg/dl (0.60-1.20); POTASSIUM 4.3 mmol/L (3.5-5.1)
[2017-10-01 07:32] VITALS: BP 153/80; PULSE 81; TEMP 36.5; O2SAT 97
[2017-10-01 08:15] LABS: HEMOGLOBIN A1C 5.3 % (4.5-5.6)
[2017-10-01] MEDS ORDERED: HUMULIN R U SC SCH ×2 (08:30→17:00)
[2017-10-01] MEDS: FLUTICASONE/SALMETEROL 250/50 (ADVAIR) 14 PUFF/1 INHALER INH SCH ×2 (08:52→20:10)
[2017-10-01] MEDS: CARVEDILOL 3.125 MG TAB PO SCH ×2 (08:53→18:00)
[2017-10-01] MEDS: TIOTROPIUM BROMIDE 5 PUFF/90 MCG INH INH SCH (08:53)
[2017-10-01] MEDS: FERROUS FUMARATE CONTR REL CAP 65 MG CAPCR PO SCH (08:54)
[2017-10-01] MEDS: METHADONE HCL 5 MG TAB PO SCH ×2 (08:54→20:05)
[2017-10-01] MEDS: METFORMIN HCL 850 MG TAB PO SCH ×3 (08:54→18:00)
[2017-10-01] MEDS: FUROSEMIDE 20 MG TAB PO SCH (08:54)
[2017-10-01] MEDS: POLYETHYLENE (MIRALAX) 17 GM PACK PO SCH ×2 (08:55→08:59)
[2017-10-01] MEDS: PANTOprazole SOD 40 MG TAB PO SCH (08:55)
[2017-10-01] MEDS: NORTRIPTYLINE HCL 10 MG CAP PO SCH ×3 (08:55→20:11)
[2017-10-01] MEDS: OMEGA-3 (PURIFIED FISH OIL) 1 GM CAP PO SCH ×3 (08:55→20:07)
[2017-10-01] MEDS: GABAPENTIN 600 MG TAB PO SCH ×3 (08:55→20:07)
[2017-10-01] MEDS ORDERED: NURSING VERBAL MED ORDER ONE (10:45)
[2017-10-01] MEDS ORDERED: MICONAZOLE NITRATE POWDER 43 GM EXT PRN (11:00)
--- NOTE | 2017-10-01 15:27 | Pharmacy Progress Note ---
Glycemic Control Progress Note Date of Service Oct 01, 2017. Scope Glycemic Pharmacist consulted for glycemic control to write orders per [facility] inpatient glycemic control protocol. Objective Accuchecks BSG (last 24hrs): Test 09/30/17 16:42 09/30/17 17:10 09/30/17 19:31 09/30/17 20:32 Bedside Glucose 57 mg/dl (70-90) 76 mg/dl (70-90) 104 mg/dl (70-90) 80 mg/dl (70-90) Test 10/01/17 01:05 10/01/17 04:27 10/01/17 06:17 10/01/17 07:53 Bedside Glucose 135 mg/dl (70-90) 158 mg/dl (70-90) 180 mg/dl (70-90) Random Glucose 172 mg/dl (70-99) Test 10/01/17 11:22 Bedside Glucose 197 mg/dl (70-90) HbA1c: Test 10/01/17 06:17 Hemoglobin A1c 5.3 % (4.5-5.6) Outpatient Anti-Diabetic Meds U-500 insulin pump Per outpatient [facility] records * Basal rates * 2.4 units/hr *of U-500* 4983-1085 (note: this is actually 12 units/hr *of insulin*) * 2.1 units/hr *of U-500* 5851-8991 (note: this is actually 10.5 units/hr *of insulin*) * Total basal insulin dose = 273 units *of insulin*/day * Bolus doses * 5 units *of U-500* AC (note: this is actually 25 units *of insulin*) * Total bolus insulin dose = 75 units *of insulin*/day * Total daily dose ~348 units *of insulin*/day Assessment & Plan ASSESSMENT: * Significant and persistent hypoglycemia noted yesterday despite insulin pump being turned off ~1200. Pump was completely removed from patient at ~ 2100 * This is likely 2nd basal effects of U-500 persisting despite discontinuation of pump * HbA1c low at 5.3% - this either indicates good outpatient control or frequent outpatient hypoglycemia. Would anticipate the latter (frequent outpatient hypoglycemia) as patient was admitted w BSG of 40 mg/dL * U-500 has characteristics of both basal and prandial insulin. Will therefore use subQ U-500 for basal/prandial insulin and Novolog as correctional insulin only * U-500 as SC dosing is usually administered at 2-3 meals per day (higher end of range if total daily dose of insulin required is higher) * Will utilize BIDM dosing as patient is at risk for hypoglycemia * BSG's gradually increasing overnight, up to 180 mg/dL at breakfast - OK to resume insulin * Total daily outpatient dose ~ 373 units (significantly weighted towards basal , which may be contributing to hypoglycemia) * Will significantly reduce as patient high risk for hypoglycemia and over- estimating U-500 will have effects persist 2nd basal characteristics * Will have very tight correction factor as possibly underestimating requirements for U-500 insulin * Spoke w (Anil) - aware potentially underestimating U-500 dose and may require short-term IV insulin. OK'd starting insulin drip for any BSG >300 mg/ dL or two consecutive BSG's >250 mg/dL. If insulin drip is required, will likely need to be maintained overnight, but will hope to discontinue tomorrow PLAN FOR INPATIENT GLYCEMIC CONTROL: * U-500 insulin administered as 70 units *insulin* at breakfast * Additional 70 units *insulin* at dinner if BSG >140 mg/dL (decrease to 35 units for BSG 120-140 mg/dL and hold for BSG < 120 mg/dL) * Bolus insulin * NovoLog per scale ACHS and two overnight checks * Goal Range: Low 120 mg/dL - High 160 mg/dL * Correction Factor: 5 mg/dL/unit RECOMMENDATIONS FOR DISCHARGE: * Patient may require adjustment of U-500 pump settings on discharge, including but not limited to reduction of basal rates * Please note that the plan above was derived based on current level of insulin resistance and hospital stress. These recommendations are appropriate for inpatient admission only. Plan of care upon discharge will need to be reassessed to avoid potential outpatient hypo/hyperglycemia. Thank you.
[2017-10-01 16:18] VITALS: BP 161/68; PULSE 80; TEMP 37; O2SAT 95
--- NOTE | 2017-10-01 17:26 | Family Medicine Progress Note ---
Progress Note Date of Service Oct 01, 2017. Subjective Pt evaluation today including: conversation w/ patient, physical exam, chart review, lab review The patient was seen and examined at bedside. No acute overnight events. Here for a fall. Feels fine. After admission had a few blood sugars in the 40s. Insulin pump was stopped. Patient is resting comfortably in bed. Denies having any pain. Eating and urinating well. Plan of care was described to the patient and all questions were answered. Constitutional: No fever, No chills, No sweats Eyes: No worsening of vision ENT: No hearing loss Respiratory: No cough, No sputum Cardiovascular: No chest pain Abdomen: No pain, No nausea, No vomiting, No diarrhea, No constipation Female : No dysuria Neurologic: No memory loss Psychiatric: No depression symptoms Heme: No abnormal bleeding/bruising Endo: No excessive thirst, No excessive urination Objective Physical Exam Notes: General: awake, alert, no apparent distress, morbidly obese Head: Normocephalic, atraumatic ENT: PERRL, EOMI, no pharyngeal exudate, mucous membranes moist Chest: Clear to auscultation, on room air, no adventitious breath sounds Cardiac: Regular rate and rhythm, + systolic murmur, no JVD, normal peripheral pulses, good capillary refill Abdominal: NABS x 4 quadrants, soft, nontender to palpation, no rebound, guarding or tenderness. Insulin pump has been removed. Extremities: + plaques overlying BLE and mild plaques over the elbows and forearms. + Peripheral edema but difficult to assess due to plaques and body habitus. No erythema, calfs nontender to palpation Psych: Normal mood and affect Neuro: AAO x 3, pt is unable to stand for weight or to work with PT/OT, speech is clear. Assessment and Plan 62F with PMHx of DM2 on insulin pump and metformin, CKD stage III, hypertension , hyperlipidemia, severe psoriasis, COPD, wears chronic supplemental oxygen at 2 L via NC, anemia, morbid obesity, obesity hypoventilation syndrome, chronic pain, osteo-arthritis who presents to the ER after a fall she sustained on September 22. Ambulatory Dysfunction - S/p Fall Admit for obs for placement to rehab PT/OT on board Pain management with home medications including methadone, oxycodone which she uses for chronic pain. Imaging reviewed - negative for any acute fractures DM2 w neuropathy Patients blood sugar dipped into the 40s after admission, insulin pump removed. If BS peaks into the 200s , I spoke with pharmacy, we will do an ISS to determine an exact amount of insulin that the patient requires. Pharmacy has placed the appropriate glycemic orders in. c/w Gabapentin 600mg TID c/w Nortriptyline 10mg TID. CKD stage III Cr. stable 0.87 upon admission - likely improved due to missing Lasix dose for several days. Resume Lasix. UTI Urine is growing E. Coli, will add Rocephin daily. Day #1 Constipation Bowel regimen with miralax daily, dulcolax tabs. Can use MOM prn. HTN / HLD c/w coreg 3.125mg BID c/w lasix 60 mg PO daily c/w Lipitor 10mg daily COPD No wheezing on exam. Continue chronic o2 at 2L, c/w Advair, Spiriva. Bilateral LE chronic venous stasis changes. Morbid obesity Derm follow up on discharge. Wound care on board for weeping lesions. [facility] is 1st choice, [facility] 2nd choice, on board. DVT Proph Lovenox 40 mg SQ daily. FULL CODE Resident Involvement: Resident Care Provided Care Provided: Adult Hospital Medicine Reviewed: Pt Seen/Exam by Me History no concerns Constitutional: denies: fever Respiratory: negative: short of breath Cardiovascular: denies chest pain General Appearance: no apparent distress, obese Respiratory: lungs clear, no respiratory distress Cardiovascular: regular rate, rhythm Extremities: other (both legs and feet with chronic venous stasis changes, lichenification) Neurologic/Psychiatric: alert, oriented x 3 Assessment/Plan Resident Physician Supervision Note: I independently interviewed and examined the patient and verified the song history and physical, reviewed labs and image studies, discussed the case with the resident Dr. Haynes and agree with the findings and care plan.
[2017-10-01 17:55] VITALS: BP 143/80; PULSE 84
[2017-10-01] MEDS ORDERED: CEFTRIAXONE SOD INJ 2 GM in DEXTROSE 5% ADD-VANTAGE 50ML 50 ML IV SCH (18:00)
[2017-10-01] MEDS: ATORVASTATIN 10 MG TAB PO SCH (20:09)
[2017-10-01] MEDS: ENOXAPARIN 40 MG/0.4 ML SYR SQ SCH (21:55)
[2017-10-02] VITALS: BP 169/83; PULSE 86; TEMP 36.6; O2SAT 96
[2017-10-02] MEDS: INSULIN ASPART 100 UNITS/ML 3 ML PEN SC SCH ×6 (00:41→21:16)
[2017-10-02 06:46] LABS: CALCIUM 9.3 mg/dl (8.5-10.1); CREATININE 0.96 mg/dl (0.60-1.20); POTASSIUM 4.3 mmol/L (3.5-5.1)
[2017-10-02 06:47] LABS: HEMATOCRIT 36.1 % (37-47); HEMOGLOBIN 10.5 g/dL (12.0-16.0); MEAN CORPUSCULAR HEMOGLOBIN 23.9 pg (25-34); MEAN CORPUSCULAR HGB CONC 29.1 g/dl (32-36); PLATELET COUNT 261 K/uL (130-400); RED CELL DISTRIBUTION WIDTH CV 17.4 % (11.5-14.5); RED CELL DISTRIBUTION WIDTH SD 52.4 fL (36.4-46.3); WHITE BLOOD COUNT 10.47 K/uL (4.8-10.8)
[2017-10-02 06:48] LABS: BASO % 0.3 %; BASO ABS # 0.03 K/uL (0-0.2); EOS % 2.3 %; EOS ABS # 0.24 K/uL (0-0.5); IG# 0.12 K/uL (0.00-0.02); LYMPH % 10.6 %; LYMPH ABS # 1.11 K/uL (1.2-3.4); MONO % 7.2 %; MONO ABS # 0.75 K/uL (0.11-0.59); NEUT % 78.5 %; NEUT ABS # 8.22 K/uL (1.4-6.5)
[2017-10-02 07:28] VITALS: BP 146/78; PULSE 78; TEMP 36.8; O2SAT 96
[2017-10-02] MEDS: OXYCODONE HCL IR 5 MG TAB (IMMEDIATE RELEASE) PO PRN ×3 (07:49→21:17)
[2017-10-02] MEDS: TIOTROPIUM BROMIDE 5 PUFF/90 MCG INH INH SCH (07:52)
[2017-10-02] MEDS: FLUTICASONE/SALMETEROL 250/50 (ADVAIR) 14 PUFF/1 INHALER INH SCH ×2 (07:52→21:04)
[2017-10-02] MEDS: FERROUS FUMARATE CONTR REL CAP 65 MG CAPCR PO SCH (07:54)
[2017-10-02] MEDS: PANTOprazole SOD 40 MG TAB PO SCH (07:54)
[2017-10-02] MEDS: OMEGA-3 (PURIFIED FISH OIL) 1 GM CAP PO SCH ×3 (07:54→21:07)
[2017-10-02] MEDS: METFORMIN HCL 850 MG TAB PO SCH ×3 (07:54→18:16)
[2017-10-02] MEDS: NORTRIPTYLINE HCL 10 MG CAP PO SCH ×3 (07:55→21:06)
[2017-10-02] MEDS: FUROSEMIDE 20 MG TAB PO SCH (07:55)
[2017-10-02] MEDS: POLYETHYLENE (MIRALAX) 17 GM PACK PO SCH (07:56)
[2017-10-02] MEDS: GABAPENTIN 600 MG TAB PO SCH ×3 (07:56→21:05)
[2017-10-02 08:00] VITALS: O2SAT 96
[2017-10-02] MEDS: METHADONE HCL 5 MG TAB PO SCH ×2 (08:00→21:04)
[2017-10-02] MEDS: HUMULIN R U SC SCH ×2 (09:22→18:32)
[2017-10-02] MEDS: CARVEDILOL 3.125 MG TAB PO SCH ×2 (09:23→18:15)
--- NOTE | 2017-10-02 09:59 | Pharmacy Progress Note ---
Glycemic Control Progress Note Date of Service Oct 02, 2017. Scope Glycemic Pharmacist consulted for glycemic control to write orders per [facility] inpatient glycemic control protocol. Objective Accuchecks BSG (last 24hrs): Test 10/01/17 11:22 10/01/17 17:13 10/01/17 20:29 10/02/17 00:28 Bedside Glucose 197 mg/dl (70-90) 170 mg/dl (70-90) 205 mg/dl (70-90) 157 mg/dl (70-90) Test 10/02/17 04:41 10/02/17 05:48 10/02/17 07:34 Bedside Glucose 151 mg/dl (70-90) 144 mg/dl (70-90) Random Glucose 143 mg/dl (70-99) HbA1c: Test 10/01/17 06:17 Hemoglobin A1c 5.3 % (4.5-5.6) Recent Pertinent Medications * U-500 insulin administered as 70 units *insulin* at breakfast and dinner on * Bolus insulin * NovoLog per scale ACHS and two overnight checks * Goal Range: Low 120 mg/dL - High 160 mg/dL * Correction Factor: 5 mg/dL/unit Outpatient Anti-Diabetic Meds U-500 insulin pump [facility] * Basal rates * 2.4 units/hr *of U-500* 7206-3262 (note: this is actually 12 units/hr *of insulin*) * 2.1 units/hr *of U-500* 7029-6058 (note: this is actually 10.5 units/hr *of insulin*) * Total basal insulin dose = 273 units *of insulin*/day * Bolus doses * 5 units *of U-500* AC (note: this is actually 25 units *of insulin*) * Total bolus insulin dose = 75 units *of insulin*/day * Total daily dose ~348 units *of insulin*/day Assessment & Plan ASSESSMENT: 10/01/17 * Significant and persistent hypoglycemia noted yesterday despite insulin pump being turned off ~1200. Pump was completely removed from patient at ~ 2100 * This is likely 2nd basal effects of U-500 persisting despite discontinuation of pump * HbA1c low at 5.3% - this either indicates good outpatient control or frequent outpatient hypoglycemia. Would anticipate the latter (frequent outpatient hypoglycemia) as patient was admitted w BSG of 40 mg/dL * U-500 has characteristics of both basal and prandial insulin. Will therefore use subQ U-500 for basal/prandial insulin and Novolog as correctional insulin only * U-500 as SC dosing is usually administered at 2-3 meals per day (higher end of range if total daily dose of insulin required is higher) * Will utilize BIDM dosing as patient is at risk for hypoglycemia * BSG's gradually increasing overnight, up to 180 mg/dL at breakfast - OK to resume insulin * Total daily outpatient dose ~ 373 units (significantly weighted towards basal , which may be contributing to hypoglycemia) * Will significantly reduce as patient high risk for hypoglycemia and over- estimating U-500 will have effects persist 2nd basal characteristics * Will have very tight correction factor as possibly underestimating requirements for U-500 insulin * Spoke rudy BAILEY (Anil) - aware potentially underestimating U-500 dose and may require short-term IV insulin. OK'd starting insulin drip for any BSG >300 mg/ dL or two consecutive BSG's >250 mg/dL. If insulin drip is required, will likely need to be maintained overnight, but will hope to discontinue tomorrow 10/02/17 * BSG's still fluctuating at this time (ranging 144-215 mg/dL), but without any significant hypo- or hyperglycemia. Despite significant fluctuations, I am satisfied with this currently given the complexities of estimating insulin doses in a patient on U-500 insulin pump as outpatient * Patient received 154 units of insulin yesterday. Outpatient regimen provides almost 350 units of insulin per day - likely contributing to significant outpatient hypoglycemia and should be adjusted on discharge * Will continue overnight checks as BSG increased slightly prior to lunch today and current regimen providing less than half of total outpatient dose PLAN FOR INPATIENT GLYCEMIC CONTROL: * U-500 insulin administered as 70 units *insulin* BIDM * Bolus insulin * NovoLog per scale ACHS plus 2 overnight checks * Goal Range: Low 120 mg/dL - High 160 mg/dL * Correction Factor: 5 mg/dL/unit RECOMMENDATIONS FOR DISCHARGE: * Patient will require adjustment of U-500 pump settings on discharge to prevent hypoglycemia, including but not limited to reduction of basal rates * Please note that the plan above was derived based on current level of insulin resistance and hospital stress. These recommendations are appropriate for inpatient admission only. Plan of care upon discharge will need to be reassessed to avoid potential outpatient hypo/hyperglycemia. Thank you.
[2017-10-02] MEDS: ACETAMINOPHEN 325 MG TAB PO PRN ×2 (10:53→18:21)
[2017-10-02 15:27] VITALS: BP 189/73; PULSE 79; TEMP 36.8; O2SAT 98
--- NOTE | 2017-10-02 15:35 | Family Medicine Progress Note ---
Progress Note Date of Service Oct 02, 2017. Subjective Pt evaluation today including: conversation w/ patient, physical exam, chart review, lab review The patient was seen and examined at bedside. No acute overnight events. Feels fine. Got a bariatric bed with [facility]. Has been up out of bed. Denies having any pain. Eating and urinating well. Plan of care was described to the patient and all questions were answered. Constitutional: No fever, No chills, No sweats Eyes: No worsening of vision ENT: No hearing loss Respiratory: No cough, No sputum Cardiovascular: No chest pain Abdomen: No pain, No nausea, No vomiting, No diarrhea, No constipation Female : No dysuria Neurologic: No memory loss Psychiatric: No depression symptoms Heme: No abnormal bleeding/bruising Endo: No excessive thirst, No excessive urination Objective Physical Exam Notes: General: awake, alert, no apparent distress, morbidly obese Head: Normocephalic, atraumatic ENT: PERRL, EOMI, no pharyngeal exudate, mucous membranes moist Chest: Clear to auscultation, on room air, no adventitious breath sounds Cardiac: Regular rate and rhythm, + systolic murmur, no JVD, normal peripheral pulses, good capillary refill Abdominal: NABS x 4 quadrants, soft, nontender to palpation, no rebound, guarding or tenderness. Insulin pump has been removed. Extremities: + plaques overlying BLE and mild plaques over the elbows and forearms. + Peripheral edema but difficult to assess due to plaques and body habitus. No erythema, calfs nontender to palpation Psych: Normal mood and affect Neuro: AAO x 3, pt is unable to stand for weight or to work with PT/OT, speech is clear. Grossly unchanged from previous day. Assessment and Plan 62F with PMHx of DM2 on insulin pump and metformin, CKD stage III, hypertension , hyperlipidemia, severe psoriasis, COPD, wears chronic supplemental oxygen at 2 L via NC, anemia, morbid obesity, obesity hypoventilation syndrome, chronic pain, osteo-arthritis who presents to the ER after a fall she sustained on September 22. Fall may be due to low blood sugars from too much glucose in the insulin pump. Awaiting placement. Ambulatory Dysfunction - S/p Fall Admit for obs for placement to rehab PT/OT on board Pain management with home medications including methadone, oxycodone which she uses for chronic pain. Imaging reviewed - negative for any acute fractures DM2 w neuropathy Patients blood sugar dipped into the 40s after admission, insulin pump removed. Pharmacy on board with new dosing for insulin pump on discharge. c/w Gabapentin 600mg TID c/w Nortriptyline 10mg TID. CKD stage III Cr. stable 0.87 upon admission - likely improved due to missing Lasix dose for several days. Resume Lasix. UTI Urine is growing E. Coli, got one dose of Rocephin, sensitive to Macrobid, switching to Macrobid, Day #2/5. Constipation Bowel regimen with miralax daily, dulcolax tabs. Can use MOM prn. HTN / HLD c/w coreg 3.125mg BID c/w lasix 60 mg PO daily c/w Lipitor 10mg daily COPD No wheezing on exam. Continue chronic o2 at 2L, c/w Advair, Spiriva. Bilateral LE chronic venous stasis changes. Morbid obesity Derm follow up on discharge. Wound care on board for weeping lesions. [facility] is 1[facility] choice, [facility] 2nd choice, on board. DVT Proph Lovenox 40 mg SQ daily. FULL CODE Resident Involvement: Resident Care Provided Care Provided: Adult Hospital Medicine Reviewed: Pt Seen/Exam by Me History no new concerns. Constitutional: denies: fever Respiratory: negative: short of breath Cardiovascular: denies chest pain General Appearance: no apparent distress, obese Respiratory: lungs clear, no respiratory distress Cardiovascular: regular rate, rhythm Gastrointestinal: soft Neurologic/Psychiatric: alert, oriented x 3 Skin Characteristics: other (Lower extremities with significant lichenification ) Assessment/Plan Resident Physician Supervision Note: I independently interviewed and examined the patient and verified the song history and physical, reviewed labs and image studies, discussed the case with the resident Dr. Haynes and agree with the findings and care plan.
[2017-10-02 16:00] VITALS: O2SAT 96
[2017-10-02] MEDS: NITROFURANTOIN MONOHYDRATE 100 MG CAP PO SCH (21:04)
[2017-10-02] MEDS: ATORVASTATIN 10 MG TAB PO SCH (21:05)
[2017-10-02] MEDS: ENOXAPARIN 40 MG/0.4 ML SYR SQ SCH (21:17)
[2017-10-02 23:05] VITALS: BP 152/80; PULSE 75; TEMP 36.8; O2SAT 99
[2017-10-03] MEDS: INSULIN ASPART 100 UNITS/ML 3 ML PEN SC SCH ×6 (01:30→21:00)
[2017-10-03] MEDS: OXYCODONE HCL IR 5 MG TAB (IMMEDIATE RELEASE) PO PRN ×4 (04:14→23:50)
[2017-10-03 05:51] LABS: HEMATOCRIT 36.8 % (37-47); HEMOGLOBIN 10.6 g/dL (12.0-16.0); MEAN CELL VOLUME 83.6 fL (80-100); MEAN CORPUSCULAR HEMOGLOBIN 24.1 pg (25-34); MEAN CORPUSCULAR HGB CONC 28.8 g/dl (32-36); MEAN PLATELET VOLUME 8.7 fL (7.4-10.4); PLATELET COUNT 235 K/uL (130-400); RED CELL DISTRIBUTION WIDTH CV 17.3 % (11.5-14.5); RED CELL DISTRIBUTION WIDTH SD 52.4 fL (36.4-46.3); WHITE BLOOD COUNT 9.82 K/uL (4.8-10.8)
[2017-10-03 06:05] LABS: CALCIUM 9.4 mg/dl (8.5-10.1); CREATININE 0.91 mg/dl (0.60-1.20); POTASSIUM 4.4 mmol/L (3.5-5.1)
[2017-10-03 07:20] VITALS: BP 169/76; PULSE 81; TEMP 36.7; O2SAT 98
[2017-10-03] MEDS: FLUTICASONE/SALMETEROL 250/50 (ADVAIR) 14 PUFF/1 INHALER INH SCH ×2 (07:51→21:32)
[2017-10-03] MEDS: NITROFURANTOIN MONOHYDRATE 100 MG CAP PO SCH ×2 (07:53→21:32)
[2017-10-03] MEDS: PANTOprazole SOD 40 MG TAB PO SCH (07:53)
[2017-10-03] MEDS: FUROSEMIDE 20 MG TAB PO SCH (07:53)
[2017-10-03] MEDS: CARVEDILOL 3.125 MG TAB PO SCH ×2 (07:53→17:25)
[2017-10-03] MEDS: TIOTROPIUM BROMIDE 5 PUFF/90 MCG INH INH SCH (07:53)
[2017-10-03] MEDS: METFORMIN HCL 850 MG TAB PO SCH ×3 (07:53→17:25)
[2017-10-03] MEDS: NORTRIPTYLINE HCL 10 MG CAP PO SCH ×3 (07:53→21:32)
[2017-10-03] MEDS: GABAPENTIN 600 MG TAB PO SCH ×3 (07:53→21:32)
[2017-10-03] MEDS: FERROUS FUMARATE CONTR REL CAP 65 MG CAPCR PO SCH (07:53)
[2017-10-03] MEDS: OMEGA-3 (PURIFIED FISH OIL) 1 GM CAP PO SCH ×3 (07:53→21:32)
[2017-10-03] MEDS: POLYETHYLENE (MIRALAX) 17 GM PACK PO SCH (07:54)
[2017-10-03 08:00] VITALS: O2SAT 98
[2017-10-03] MEDS: METHADONE HCL 5 MG TAB PO SCH ×2 (08:00→21:35)
[2017-10-03] MEDS: HUMULIN-R U-500 80 UNITS in SYRINGE 0 ML SC SCH (08:39)
--- NOTE | 2017-10-03 13:29 | Pharmacy Progress Note ---
Pharmacy Glycemic Short Note 2 Date of Service Oct 03, 2017. OUTPATIENT ANTIDIABETIC REGIMEN: * U-500 insulin pump [facility] * Basal rates * 2.4 units/hr *of U-500* 7759-2635 (note: this is actually 12 units/hr *of insulin*) * 2.1 units/hr *of U-500* 6688-9502 (note: this is actually 10.5 units/hr *of insulin*) * Total basal insulin dose = 273 units *of insulin*/day * Bolus doses * 5 units *of U-500* AC (note: this is actually 25 units *of insulin*) * Total bolus insulin dose = 75 units *of insulin*/day * Total daily dose ~348 units *of insulin*/day ASSESSMENT: * Inpatient control of diabetes is looking great. * Patient received 164 units of insulin yesterday with BSGs ranging from 143- 186 mg/dL * She required ~20 units of correctional insulin yesterday so I will plan to increase the U-500 dose. Will only increase the AM dose since her fasting BSG has looked great. * Regarding the plan for discharge: * I spoke with the patient at length this AM regarding her history of lows prior to admission. She reports her lows were only just prior to admission and her po intake had been significantly reduced, but has since improved. She follows with Jesus Manuel Mitchell, pharmacist, at the [facility] clinic in [place] and just had follow-up in August, in which her BSGs were well controlled. * My initial thoughts were to not adjust her insulin pump settings b/c her lows were due to a specific cause, however, if she is going to a rehab facility on discharge, her insulin requirements would most likely be similar to what they are as an inpatient (~1/2 of her usual requirements) because of more of a restricted diet. * With her initial possibility of going to [facility], Jesus Manuel manages patients there and recommended for her to be discharged on her inpatient U-500 regimen. He was then going to adjust as needed there. I found out that the patient is not going to [facility] now so will need to work up a new plan. See discharge recommendations below. PLAN FOR INPATIENT GLYCEMIC CONTROL: * Continue metformin 850 mg TID * Basal/prandial insulin * Increase U-500 to 80 units qAM, 70 units qPM * Bolus insulin * NovoLog per scale ACHS or Q6hrs while NPO * Goal Range: Low 120 mg/dL - High 160 mg/dL * Correction Factor: 5 mg/dL/unit PLAN FOR DISCHARGE: * If going to a rehab facility, plan may be dependent on what they allow at the specific facility. Some may not even allow an insulin pump? * Would recommend utilizing U-500 injections instead of adjusting the settings on the patient's pump, especially since these settings would only be temporary * Recommend U-500 80 units (0.16 mL) with breakfast and 70 units (0.14 mL) with dinner
[2017-10-03] MEDS: ACETAMINOPHEN 325 MG TAB PO PRN (13:46)
[2017-10-03 15:35] VITALS: Ht 170.2 cm; Wt 205.3 kg
[2017-10-03 15:52] VITALS: BP 146/76; PULSE 74; TEMP 36.8; O2SAT 98
[2017-10-03] MEDS ORDERED: HUMULIN R U SC SCH (17:00)
--- NOTE | 2017-10-03 19:22 | Family Medicine Progress Note ---
Progress Note Date of Service Oct 03, 2017. Subjective Pt evaluation today including: conversation w/ patient, physical exam, chart review, lab review Pain: c/o right knee pain Voiding: barboza catheter in place No acute events overnight. Is waiting placement for rehab after a fall. Constitutional: No fever, No chills Eyes: No worsening of vision ENT: No hearing loss Respiratory: No cough, No sputum Abdomen: No pain, No nausea Musculoskeletal: No joint pain Female : + dysuria Medications Current Inpatient Medications Medications (Trade) Dose Ordered Sig/Wes Route Start Time Stop Time Status Last Admin Dose Admin Ioversol (Optiray 320) 100 ml UD PRN IV 09/30/17 14:00 10/04/17 13:59 Enoxaparin Sodium (Lovenox Inj) 40 mg Q24H SQ 09/30/17 22:00 10/30/17 17:14 10/02/17 21:17 40 MG Acetaminophen (Tylenol Tab) 650 mg Q4H PRN PO 09/30/17 17:15 10/30/17 17:14 10/03/17 13:46 650 MG Magnesium Hydroxide (Milk Of Magnesia Susp) 30 ml Q6H PRN PO 09/30/17 17:15 10/30/17 17:14 Polyethylene (Miralax Powder Packet) 17 gm DAILY PO 10/01/17 08:00 10/31/17 08:59 10/02/17 07:56 17 GM Ondansetron HCl (Zofran Inj) 4 mg Q6H PRN IV 09/30/17 17:15 10/30/17 17:14 Atorvastatin Calcium (Lipitor Tab) 10 mg HS PO 09/30/17 21:00 10/30/17 20:59 10/02/17 21:05 10 MG Carvedilol (Coreg Tab) 3.125 mg BIDM PO 09/30/17 21:00 10/30/17 20:59 10/03/17 17:25 3.125 MG Fish Oil ([place]-3 (Purified Fish Oil) Cap) 1 gm TID PO 09/30/17 21:00 10/30/17 20:59 10/03/17 14:10 1 GM Salmeterol Xinafoate/ Fluticasone (Advair Diskus 250/50 Inh) 1 puff BID INH 09/30/17 20:39 10/30/17 20:59 10/03/17 07:51 1 PUFF Furosemide (Lasix Tab) 60 mg DAILY PO 10/01/17 08:00 10/31/17 08:59 10/03/17 07:53 60 MG Gabapentin (Neurontin Tab) 600 mg TID PO 09/30/17 21:00 10/30/17 20:59 10/03/17 14:10 600 MG Metformin HCl (Glucophage Tab) 850 mg TIDM PO 10/01/17 08:00 10/31/17 07:59 10/03/17 17:25 850 MG Methadone HCl (Dolophine Tab) 5 mg BID PO 09/30/17 21:00 10/14/17 20:59 10/03/17 08:00 5 MG Nortriptyline HCl (Pamelor Cap) 10 mg TID PO 09/30/17 21:00 10/30/17 20:59 10/03/17 14:10 10 MG Tiotropium Ullin (Spiriva Handihaler Inhaler) 1 puff DAILY INH 10/01/17 08:00 10/31/17 08:59 10/03/17 07:53 1 PUFF Ferrous Fumarate (Candace-Sequels Contr Rel Cap) 65 mg DAILY PO 10/01/17 08:00 10/31/17 08:59 10/03/17 07:53 65 MG Oxycodone HCl (Roxicodone Immediate Rel Tab) 20 mg Q6 PRN PO 09/30/17 17:15 10/30/17 17:14 10/03/17 17:25 20 MG Pantoprazole Sodium (Protonix Tab) 40 mg QAM PO 10/01/17 08:00 10/31/17 08:59 10/03/17 07:53 40 MG Glucose (Glucose 40% Gel) 15-30 GRAMS 15 GRAMS... UD PRN PO 09/30/17 17:15 10/30/17 17:14 Glucose (Glucose Chew Tab) 4-8 Tablets 4 Tabl... UD PRN PO 09/30/17 17:15 10/30/17 17:14 Dextrose (Dextrose 50% 50ML Syringe) 25-50ML OF 50% DW IV FOR... UD PRN IV 09/30/17 17:15 10/30/17 17:14 Glucagon (Glucagon Inj) 1 mg UD PRN SQ 09/30/17 17:15 10/30/17 17:14 Miscellaneous Information (Consult Glycemic Management Pharmacy) 1 ea UD PRN N/A 09/30/17 17:57 10/30/17 17:56 Bisacodyl (Dulcolax Supp) 10 mg DAILY PRN NM 09/30/17 17:45 10/30/17 17:44 Miscellaneous (Iv Fluids Completed) 1 ea PRN PRN N/A 09/30/17 20:30 09/30/18 20:29 Insulin Aspart (novoLOG ASPART) SLIDING SCALE ACHS SC 10/01/17 07:30 10/31/17 07:29 10/02/17 21:16 6 UNITS Miconazole Nitrate (Desenex Powder) 1 appln AT BEDSIDE PLEASE PRN EXT 10/01/17 11:00 10/31/17 10:59 10/01/17 18:55 1 APPLN Nitrofurantoin Macrocrystals (Macrobid Cap) 100 mg BID PO 10/02/17 20:00 10/07/17 19:59 10/03/17 07:53 100 MG Insulin Human Regular 80 units/ Syringe 0.16 ml @ 0 mls/sec QDB SC 10/03/17 08:15 11/02/17 08:14 10/03/17 08:39 0.16 MLS/SEC Insulin Human Regular 70 units/ Syringe 0.14 ml @ 0 mls/sec QDD SC 10/03/17 17:00 11/02/17 16:59 10/03/17 17:32 0.14 MLS/SEC Objective Vital Signs Date Time Temp Pulse Resp B/P (MAP) Pulse Ox O2 Delivery O2 Flow Rate FiO2 10/03/17 15:52 36.8 74 18 146/76 (99) 98 Nasal Cannula 4.0 10/03/17 08:00 98 Nasal Cannula 4.0 10/03/17 07:20 36.7 81 18 169/76 (107) 98 4.0 10/03/17 00:00 Nasal Cannula 4.0 10/02/17 23:05 36.8 75 20 152/80 (104) 99 Nasal Cannula 4.0 10/02/17 20:00 Nasal Cannula 4.0 Physical Exam General Appearance: WD/WN, + obese (morbidly) ENT: hearing grossly normal Neck: supple Cardiovascular: regular rate, rhythm Abdomen: non tender, soft Extremities: + pedal edema, + pertinent finding Neurologic/Psychiatric: alert, normal mood/affect, oriented x 3 Laboratory Results Last 24 Hours Test 10/02/17 20:12 10/03/17 00:26 10/03/17 04:06 10/03/17 05:18 Bedside Glucose 186 mg/dl 166 mg/dl 143 mg/dl White Blood Count 9.82 K/uL Red Blood Count 4.40 M/uL Hemoglobin 10.6 g/dL Hematocrit 36.8 % Mean Corpuscular Volume 83.6 fL Mean Corpuscular Hemoglobin 24.1 pg Mean Corpuscular Hemoglobin Concent 28.8 g/dl RDW Standard Deviation 52.4 fL RDW Coefficient of Variation 17.3 % Platelet Count 235 K/uL Mean Platelet Volume 8.7 fL Sodium Level 135 mmol/L Potassium Level 4.4 mmol/L Chloride Level 92 mmol/L Carbon Dioxide Level 38 mmol/L Anion Gap 5.0 mmol/L Blood Urea Nitrogen 18 mg/dl Creatinine 0.91 mg/dl Est Creatinine Clear Calc Drug Dose 122.1 ml/min Estimated GFR () 78.9 Estimated GFR (Non- 68.1 BUN/Creatinine Ratio 19.5 Random Glucose 158 mg/dl Calcium Level 9.4 mg/dl Test 10/03/17 07:30 10/03/17 11:29 10/03/17 16:38 Bedside Glucose 159 mg/dl 149 mg/dl 125 mg/dl Assessment and Plan 62-year-old female past medical history of diabetes type 2 on insulin pump and metformin, CKD stage III, hypertension, hyperlipidemia, severe psoriasis, chronic pain, COPD presented to the ER after she had a fall secondary to ambulatory dysfunction. Awaiting placement for rehab. Ambulatory Dysfunction - S/p Fall No acute fractures noted on imaging PT/OT on board Pain management with home medications including methadone, oxycodone which she uses for chronic pain. DM2 w neuropathy ISS, pump removed as blood sugars dipped to 40s after admission Continue Gabapentin 600mg TID Continue Nortriptyline 10mg TID. CKD stage III Cr at 0.9 UTI Uc positive for E.coli. Continue Macrobid day 3 Constipation Bowel regimen with miralax daily, dulcolax tabs. Can use MOM prn. HTN / HLD Continue coreg 3.125mg BID - Continue lasix 60 mg PO daily -Continue Lipitor 10mg daily COPD/obesity hypoventilation syndrome - O2 via NC - continue Advair, Spiriva. Bilateral LE chronic venous stasis changes. psoriasis Derm follow up on discharge. Wound care DVT Proph Lovenox 40 mg SQ daily. FULL CODE Dispo: referrals made to [place] and [place] Resident Physician Supervision Note: I interviewed and examined the patient. Discussed with Dr. Hopkins and agree with findings and plan as documented in the note. Any exceptions or clarifications are listed here: None Documented By: Jim Hong awaiting placmeent notes chronic pain but wants to get back home but knows needs to do rehab first knees and back hurt chronically vitals noted nad breathing unlabored no pallor or icterus DJD knees/chronic pain/morbid obesity/weakness inability to safely manage at home -for rehab at SNF, consider voltaren gel and alternate pain means over time, have to consider ?element of narcotics hyperalgesia? but for now pain reasonable so no abrupt changes Resident Tracking Resident Involvement: Resident Care Provided Care Provided: Adult Hospital Medicine
[2017-10-03] MEDS: ATORVASTATIN 10 MG TAB PO SCH (21:32)
[2017-10-03] MEDS: ENOXAPARIN 40 MG/0.4 ML SYR SQ SCH (21:33)
[2017-10-03 23:35] VITALS: BP 148/86; PULSE 75; TEMP 36.7; O2SAT 96
[2017-10-04] MEDS: ACETAMINOPHEN 325 MG TAB PO PRN ×2 (03:48→11:15)
[2017-10-04] MEDS: INSULIN ASPART 100 UNITS/ML 3 ML PEN SC SCH ×4 (06:30→20:38)
[2017-10-04 07:20] VITALS: BP 158/76; PULSE 79; TEMP 36.6; O2SAT 98
[2017-10-04] MEDS: FLUTICASONE/SALMETEROL 250/50 (ADVAIR) 14 PUFF/1 INHALER INH SCH ×2 (08:05→20:39)
[2017-10-04] MEDS: TIOTROPIUM BROMIDE 5 PUFF/90 MCG INH INH SCH (08:06)
[2017-10-04] MEDS: NORTRIPTYLINE HCL 10 MG CAP PO SCH ×3 (08:09→20:39)
[2017-10-04] MEDS: HUMULIN-R U-500 80 UNITS in SYRINGE 0 ML SC SCH (08:09)
[2017-10-04] MEDS: METFORMIN HCL 850 MG TAB PO SCH ×3 (08:10→16:59)
[2017-10-04] MEDS: FUROSEMIDE 20 MG TAB PO SCH (08:10)
[2017-10-04] MEDS: METHADONE HCL 5 MG TAB PO SCH ×2 (08:11→20:39)
[2017-10-04] MEDS: PANTOprazole SOD 40 MG TAB PO SCH (08:12)
[2017-10-04] MEDS: FERROUS FUMARATE CONTR REL CAP 65 MG CAPCR PO SCH (08:12)
[2017-10-04] MEDS: OXYCODONE HCL IR 5 MG TAB (IMMEDIATE RELEASE) PO PRN ×3 (08:12→22:12)
[2017-10-04] MEDS: CARVEDILOL 3.125 MG TAB PO SCH ×2 (08:12→16:59)
[2017-10-04] MEDS: POLYETHYLENE (MIRALAX) 17 GM PACK PO SCH (08:12)
[2017-10-04] MEDS: GABAPENTIN 600 MG TAB PO SCH ×3 (08:13→20:39)
[2017-10-04] MEDS: NITROFURANTOIN MONOHYDRATE 100 MG CAP PO SCH ×2 (08:13→20:39)
[2017-10-04] MEDS: OMEGA-3 (PURIFIED FISH OIL) 1 GM CAP PO SCH ×3 (08:16→20:39)
[2017-10-04] MEDS ORDERED: NURSING VERBAL MED ORDER ONE (09:00)
[2017-10-04] MEDS ORDERED: SODIUM CHLORIDE 0.65% NA SOLN 45 ML (OCEAN) ONE (09:17)
[2017-10-04] MEDS ORDERED: SODIUM CHLORIDE 0.65% NA SOLN 45 ML (OCEAN) PRN (09:30)
--- NOTE | 2017-10-04 13:18 | Pharmacy Progress Note ---
Pharmacy Glycemic Short Note 2 Date of Service Oct 04, 2017. OUTPATIENT ANTIDIABETIC REGIMEN: * U-500 insulin pump Per outpatient [facility] records * Basal rates * 2.4 units/hr *of U-500* 9214-0973 (note: this is actually 12 units/hr *of insulin*) * 2.1 units/hr *of U-500* 1211-5352 (note: this is actually 10.5 units/hr *of insulin*) * Total basal insulin dose = 273 units *of insulin*/day * Bolus doses * 5 units *of U-500* AC (note: this is actually 25 units *of insulin*) * Total bolus insulin dose = 75 units *of insulin*/day * Total daily dose ~348 units *of insulin*/day Item Value Date Time Bedside Glucose 159 mg/dl H 10/03/17 0730 Bedside Glucose 149 mg/dl H 10/03/17 1129 Bedside Glucose 125 mg/dl H 10/03/17 1638 Bedside Glucose 117 mg/dl H 10/03/172017 Bedside Glucose 142 mg/dl H 10/04/17 0728 Bedside Glucose 175 mg/dl H 10/04/17 1135 ASSESSMENT: * Patient is currently receiving an average of 155 units of insulin per day. This is HALF of outpatient dosing. * 80 units of U-500 Regular insulin in the morning with breakfast * 70 units of U-500 Regular insulin in the evening with dinner * 0-3 units of correctional insulin * No prandial insulin ordered with U-500 as U-500 serves as both basal and prandial insulin * Inpatient control of diabetes is looking great. * No changes needed to insulin dosing but need to start prepping for discharge. * Humulin Regular Insulin (Humulin R) is available in two concentrations: 100units/ml and 500 units/ml. It is essential that clinicians and patients ensure that the correct concentration of regular insulin is used. Inadvertent use of the 500 units/ml concentration in place of the 100 units/ml concentration could result in severe overdose and hypoglycemia. * Pt is currently on the more concentrated U-500 Regular insulin as an outpatient. This is typically reserved for patients requiring >200 units of insulin per day. Since patient is now requiring less than 200 units of insulin per day (d/t decreased PO intake) it would be safest to change back to a standard insulin concentration to prevent medication errors at rehab facility. * Pt does not know how to adjust her insulin pump settings therefore it would be best to maintain SQ insulin injections. * Changing to NPH/NovoLog/Metformin will prevent mis-dosing with 5x concentrated insulin in a standard U-100 syringe. . PLAN FOR INPATIENT GLYCEMIC CONTROL: * Continue metformin 850 mg TID * Basal/prandial insulin * STOP U-500 Regular insulin * Change to NPH 80 units qAM, 70 units qPM * Bolus insulin * NovoLog per scale ACHS or Q6hrs while NPO * Goal Range: Low 120 mg/dL - High 160 mg/dL * Correction Factor: 5 mg/dL/unit PLAN FOR DISCHARGE: * If going to a rehab facility, plan may be dependent on what they allow at the specific facility. Some may not even allow an insulin pump? * Would recommend utilizing U-500 injections instead of adjusting the settings on the patient's pump, especially since these settings would only be temporary. HOWEVER, many facilities are not familiar with U-500 and there is a huge risk of error with this extremely concentrated insulin. Since patient is only requiring ~ 150 units/day, will change to NPH and prep for transfer. * Recommend: * Hold U-500 insulin for rehab stay * Use instead: NPH 80 units with breakfast and 70 units with dinner * Continue Metformin 850mg PO TIDM * NovoLog SSI ACHS per goal range/CF only as above
[2017-10-04 15:45] VITALS: BP 131/74; PULSE 72; TEMP 36.5; O2SAT 96
[2017-10-04] MEDS ORDERED: INSULIN HUMAN NPH SC SCH (17:00)
[2017-10-04] MEDS: ATORVASTATIN 10 MG TAB PO SCH (20:39)
[2017-10-04] MEDS: ENOXAPARIN 40 MG/0.4 ML SYR SQ SCH (20:40)
[2017-10-05 00:31] VITALS: BP 153/75; PULSE 76; TEMP 36.7; O2SAT 98
[2017-10-05] MEDS ORDERED: INSULIN ASPART 100 UNITS/ML 3 ML PEN SC SCH (02:00)
[2017-10-05] MEDS: OXYCODONE HCL IR 5 MG TAB (IMMEDIATE RELEASE) PO PRN ×3 (04:45→17:30)
--- NOTE | 2017-10-05 05:06 | Family Medicine Progress Note ---
Progress Note Date of Service Oct 04, 2017. Subjective Pt evaluation today including: conversation w/ patient, physical exam, chart review Pain: well controlled PO Intake: good Voiding: barboza catheter in place No new concerns. No acute events overnight Constitutional: No fever, No chills Eyes: No worsening of vision ENT: No hearing loss Respiratory: No cough, No sputum Cardiovascular: No chest pain Breast: No breast lump Abdomen: No pain, No nausea Musculoskeletal: + problem reported (right knee pain) Medications Current Inpatient Medications Medications (Trade) Dose Ordered Sig/Wes Route Start Time Stop Time Status Last Admin Dose Admin Enoxaparin Sodium (Lovenox Inj) 40 mg Q24H SQ 09/30/17 22:00 10/30/17 17:14 10/04/17 20:40 40 MG Acetaminophen (Tylenol Tab) 650 mg Q4H PRN PO 09/30/17 17:15 10/30/17 17:14 10/04/17 11:15 650 MG Magnesium Hydroxide (Milk Of Magnesia Susp) 30 ml Q6H PRN PO 09/30/17 17:15 10/30/17 17:14 Polyethylene (Miralax Powder Packet) 17 gm DAILY PO 10/01/17 08:00 10/31/17 08:59 10/04/17 08:12 17 GM Ondansetron HCl (Zofran Inj) 4 mg Q6H PRN IV 09/30/17 17:15 10/30/17 17:14 Atorvastatin Calcium (Lipitor Tab) 10 mg HS PO 09/30/17 21:00 10/30/17 20:59 10/04/17 20:39 10 MG Carvedilol (Coreg Tab) 3.125 mg BIDM PO 09/30/17 21:00 10/30/17 20:59 10/04/17 16:59 3.125 MG Fish Oil ([place]-3 (Purified Fish Oil) Cap) 1 gm TID PO 09/30/17 21:00 10/30/17 20:59 10/04/17 20:39 1 GM Salmeterol Xinafoate/ Fluticasone (Advair Diskus 250/50 Inh) 1 puff BID INH 09/30/17 20:39 10/30/17 20:59 10/04/17 20:39 1 PUFF Furosemide (Lasix Tab) 60 mg DAILY PO 10/01/17 08:00 10/31/17 08:59 10/04/17 08:10 60 MG Gabapentin (Neurontin Tab) 600 mg TID PO 09/30/17 21:00 10/30/17 20:59 10/04/17 20:39 600 MG Metformin HCl (Glucophage Tab) 850 mg TIDM PO 10/01/17 08:00 10/31/17 07:59 10/04/17 16:59 850 MG Methadone HCl (Dolophine Tab) 5 mg BID PO 09/30/17 21:00 10/14/17 20:59 10/04/17 20:39 5 MG Nortriptyline HCl (Pamelor Cap) 10 mg TID PO 09/30/17 21:00 10/30/17 20:59 10/04/17 20:39 10 MG Tiotropium [place] (Spiriva Handihaler Inhaler) 1 puff DAILY INH 10/01/17 08:00 10/31/17 08:59 10/04/17 08:06 1 PUFF Ferrous Fumarate (Candace-Sequels Contr Rel Cap) 65 mg DAILY PO 10/01/17 08:00 10/31/17 08:59 10/04/17 08:12 65 MG Oxycodone HCl (Roxicodone Immediate Rel Tab) 20 mg Q6 PRN PO 09/30/17 17:15 10/30/17 17:14 10/05/17 04:45 20 MG Pantoprazole Sodium (Protonix Tab) 40 mg QAM PO 10/01/17 08:00 10/31/17 08:59 10/04/17 08:12 40 MG Glucose (Glucose 40% Gel) 15-30 GRAMS 15 GRAMS... UD PRN PO 09/30/17 17:15 10/30/17 17:14 Glucose (Glucose Chew Tab) 4-8 Tablets 4 Tabl... UD PRN PO 09/30/17 17:15 10/30/17 17:14 Dextrose (Dextrose 50% 50ML Syringe) 25-50ML OF 50% DW IV FOR... UD PRN IV 09/30/17 17:15 10/30/17 17:14 Glucagon (Glucagon Inj) 1 mg UD PRN SQ 09/30/17 17:15 10/30/17 17:14 Miscellaneous Information (Consult Glycemic Management Pharmacy) 1 ea UD PRN N/A 09/30/17 17:57 10/30/17 17:56 Bisacodyl (Dulcolax Supp) 10 mg DAILY PRN [place] 09/30/17 17:45 10/30/17 17:44 Miscellaneous (Iv Fluids Completed) 1 ea PRN PRN N/A 09/30/17 20:30 09/30/18 20:29 Insulin Aspart (novoLOG ASPART) SLIDING SCALE ACHS SC 10/01/17 07:30 10/31/17 07:29 10/04/17 12:57 3 UNITS Miconazole Nitrate (Desenex Powder) 1 appln AT BEDSIDE PLEASE PRN EXT 10/01/17 11:00 10/31/17 10:59 10/01/17 18:55 1 APPLN Nitrofurantoin Macrocrystals (Macrobid Cap) 100 mg BID PO 10/02/17 20:00 10/07/17 19:59 10/04/17 20:39 100 MG Sodium Chloride ([place] Nasal [place]) 1 sprays PRN PRN NA 10/04/17 09:30 11/03/17 09:29 Insulin Human NPH (novoLIN-N NPH) 70 units QDD SC 10/04/17 17:00 11/03/17 16:59 10/04/17 17:38 70 UNITS Insulin Human NPH (novoLIN-N NPH) 80 units QDB SC 10/05/17 08:00 11/04/17 07:59 Objective Vital Signs Date Time Temp Pulse Resp B/P (MAP) Pulse Ox O2 Delivery O2 Flow Rate FiO2 10/05/17 00:31 36.7 76 20 153/75 (101) 98 Nasal Cannula 3.0 10/05/17 00:15 Nasal Cannula 3.0 10/04/17 15:45 36.5 72 18 131/74 (93) 96 3.0 10/04/17 15:15 Nasal Cannula 3.0 10/04/17 08:00 Room Air 4.0 10/04/17 07:20 36.6 79 20 158/76 (103) 98 4.0 Physical Exam General Appearance: WD/WN, no apparent distress, + obese ENT: normal ENT inspection, hearing grossly normal Neck: supple Respiratory/Chest: lungs clear, normal breath sounds, no respiratory distress Abdomen: normal bowel sounds Extremities: + pedal edema, + pertinent finding (thick plaques on bilateral lower extremities and mild plaques on hands) Neurologic/Psychiatric: alert, normal mood/affect, oriented x 3 Skin: normal color Laboratory Results Results Past 24 Hours Test 10/04/17 07:28 10/04/17 11:35 10/04/17 16:29 10/04/17 19:53 Range/Units Bedside Glucose 142 175 124 125 70-90 mg/dl Test 10/05/17 01:57 Range/Units Bedside Glucose 133 70-90 mg/dl Assessment and Plan 62-year-old female past medical history of diabetes type 2 on insulin pump and metformin, CKD stage III, hypertension, hyperlipidemia, severe psoriasis, chronic pain, COPD presented to the ER after she had a fall secondary to ambulatory dysfunction. Awaiting placement for rehab. No new concerns Ambulatory Dysfunction - S/p Fall No acute fractures noted on imaging PT/OT on board Pain management with home medications including methadone, oxycodone which she uses for chronic pain. DM2 w neuropathy ISS, pump removed as blood sugars dipped to 40s after admission Continue Gabapentin 600mg TID Continue Nortriptyline 10mg TID. CKD stage III Cr at 0.9 UTI Uc positive for E.coli. Continue Macrobid day 3 Constipation Bowel regimen with miralax daily, dulcolax tabs. Can use MOM prn. HTN / HLD Continue coreg 3.125mg BID - Continue lasix 60 mg PO daily -Continue Lipitor 10mg daily COPD/obesity hypoventilation syndrome - O2 via NC - continue Advair, Spiriva. Bilateral LE chronic venous stasis changes. psoriasis Derm follow up on discharge. Wound care DVT Proph Lovenox 40 mg SQ daily. FULL CODE Dispo: referrals made to [place] and [place]. Still awaiting placement. CM following Resident Physician Supervision Note: I interviewed and examined the patient. Discussed with Dr. Hopkins and agree with findings and plan as documented in the note. Any exceptions or clarifications are listed here: None Documented By: Jim Hong no new complaints awaiting placement vitals noted nad breathing unlabored ambulatory dysfunction, knee pain - for placement once available, otherwise as above Resident Tracking Resident Involvement: Resident Care Provided Care Provided: Adult Hospital Medicine
[2017-10-05 08:00] VITALS: BP 168/65; PULSE 83; TEMP 36.8; O2SAT 99
[2017-10-05] MEDS ORDERED: INSULIN HUMAN NPH SC SCH (08:00)
[2017-10-05 09:00] VITALS: O2SAT 99
[2017-10-05] MEDS: GABAPENTIN 600 MG TAB PO SCH ×3 (09:04→20:40)
[2017-10-05] MEDS: PANTOprazole SOD 40 MG TAB PO SCH (09:04)
[2017-10-05] MEDS: FLUTICASONE/SALMETEROL 250/50 (ADVAIR) 14 PUFF/1 INHALER INH SCH ×2 (09:04→20:39)
[2017-10-05] MEDS: FUROSEMIDE 20 MG TAB PO SCH (09:05)
[2017-10-05] MEDS: CARVEDILOL 3.125 MG TAB PO SCH ×2 (09:05→17:26)
[2017-10-05] MEDS: OMEGA-3 (PURIFIED FISH OIL) 1 GM CAP PO SCH ×3 (09:05→20:41)
[2017-10-05] MEDS: TIOTROPIUM BROMIDE 5 PUFF/90 MCG INH INH SCH (09:06)
[2017-10-05] MEDS: NITROFURANTOIN MONOHYDRATE 100 MG CAP PO SCH ×2 (09:06→20:39)
[2017-10-05] MEDS: POLYETHYLENE (MIRALAX) 17 GM PACK PO SCH (09:07)
[2017-10-05] MEDS: FERROUS FUMARATE CONTR REL CAP 65 MG CAPCR PO SCH (09:07)
[2017-10-05] MEDS: METFORMIN HCL 850 MG TAB PO SCH ×3 (09:08→17:26)
[2017-10-05] MEDS: NORTRIPTYLINE HCL 10 MG CAP PO SCH ×3 (09:08→20:40)
[2017-10-05] MEDS: INSULIN ASPART 100 UNITS/ML 3 ML PEN SC SCH ×4 (09:13→20:46)
[2017-10-05] MEDS: METHADONE HCL 5 MG TAB PO SCH ×2 (09:19→20:38)
[2017-10-05] MEDS: ACETAMINOPHEN 325 MG TAB PO PRN (12:49)
--- NOTE | 2017-10-05 14:02 | Pharmacy Progress Note ---
Pharmacy Glycemic Short Note 2 Date of Service Oct 05, 2017. OUTPATIENT ANTIDIABETIC REGIMEN: * U-500 insulin pump [facility] * Basal rates * 2.4 units/hr *of U-500* [id number] (note: this is actually 12 units/hr *of insulin*) * 2.1 units/hr *of U-500* [id number] (note: this is actually 10.5 units/hr *of insulin*) * Total basal insulin dose = 273 units *of insulin*/day * Bolus doses * 5 units *of U-500* AC (note: this is actually 25 units *of insulin*) * Total bolus insulin dose = 75 units *of insulin*/day * Total daily dose ~348 units *of insulin*/day ASSESSMENT: * Patient is currently receiving an average of 153 units of insulin per day. This is HALF of outpatient dosing. * Patient was switched from U-500 regular insulin to NPH on 10/04 PM. Please see progress note from 10/04 regarding details of switch. * Current regimen: * 80 units of NPH in the morning with breakfast * 70 units of NPH in the evening with dinner * 20 units of correctional insulin used since pt was switched to NPH * BSGs over the past 24 hours: 142 (fasting), 175, 124, 125, 133, 200, 179 ( fasting) * Will continue to titrate NPH dose to goal in anticipation of upcoming discharge PLAN FOR INPATIENT GLYCEMIC CONTROL: * Continue metformin 850 mg TID * Basal/prandial insulin - increase * Increase NPH to 90 units qAM with breakfast * Increase NPH to 80 units qPM with dinner * Bolus insulin * NovoLog per scale ACHS or Q6hrs while NPO * Tighten goal range to: Low 110 mg/dL - High 140 mg/dL * Correction Factor: 5 mg/dL/unit PLAN FOR DISCHARGE: * If going to a rehab facility, plan may be dependent on what they allow at the specific facility. Some may not even allow an insulin pump? * Would recommend utilizing U-500 injections instead of adjusting the settings on the patient's pump, especially since these settings would only be temporary. HOWEVER, many facilities are not familiar with U-500 and there is a huge risk of error with this extremely concentrated insulin. Since patient is only requiring ~ 150 units/day, will change to NPH and prep for transfer. * Recommend: * Hold U-500 insulin for rehab stay * Use instead: NPH 90 units with breakfast and 80 units with dinner * Continue Metformin 850mg PO TIDM * NovoLog SSI ACHS per goal range/CF only as above
[2017-10-05 15:53] VITALS: BP 163/72; PULSE 74; TEMP 36.5; O2SAT 95
--- NOTE | 2017-10-05 16:55 | Family Medicine Progress Note ---
Progress Note Date of Service Oct 05, 2017. Subjective Pt evaluation today including: conversation w/ patient, physical exam, chart review, lab review Constitutional: No fever, No chills Eyes: No worsening of vision ENT: No hearing loss Respiratory: No cough, No sputum Cardiovascular: No chest pain Musculoskeletal: + joint pain (right knee pain) Neurologic: No memory loss Psychiatric: No depression symptoms Heme: No abnormal bleeding/bruising Medications Current Inpatient Medications Medications (Trade) Dose Ordered Sig/Wes Route Start Time Stop Time Status Last Admin Dose Admin Enoxaparin Sodium (Lovenox Inj) 40 mg Q24H SQ 09/30/17 22:00 10/30/17 17:14 10/04/17 20:40 40 MG Acetaminophen (Tylenol Tab) 650 mg Q4H PRN PO 09/30/17 17:15 10/30/17 17:14 10/05/17 12:49 650 MG Magnesium Hydroxide (Milk Of Magnesia Susp) 30 ml Q6H PRN PO 09/30/17 17:15 10/30/17 17:14 Polyethylene (Miralax Powder Packet) 17 gm DAILY PO 10/01/17 08:00 10/31/17 08:59 10/05/17 09:07 17 GM Ondansetron HCl (Zofran Inj) 4 mg Q6H PRN IV 09/30/17 17:15 10/30/17 17:14 Atorvastatin Calcium (Lipitor Tab) 10 mg HS PO 09/30/17 21:00 10/30/17 20:59 10/04/17 20:39 10 MG Carvedilol (Coreg Tab) 3.125 mg BIDM PO 09/30/17 21:00 10/30/17 20:59 10/05/17 09:05 3.125 MG Fish Oil ([place]-3 (Purified Fish Oil) Cap) 1 gm TID PO 09/30/17 21:00 10/30/17 20:59 10/05/17 14:36 1 GM Salmeterol Xinafoate/ Fluticasone (Advair Diskus 250/50 Inh) 1 puff BID INH 09/30/17 20:39 10/30/17 20:59 10/05/17 09:04 1 PUFF Furosemide (Lasix Tab) 60 mg DAILY PO 10/01/17 08:00 10/31/17 08:59 10/05/17 09:05 60 MG Gabapentin (Neurontin Tab) 600 mg TID PO 09/30/17 21:00 10/30/17 20:59 10/05/17 14:35 600 MG Metformin HCl (Glucophage Tab) 850 mg TIDM PO 10/01/17 08:00 10/31/17 07:59 10/05/17 12:41 850 MG Methadone HCl (Dolophine Tab) 5 mg BID PO 09/30/17 21:00 10/14/17 20:59 10/05/17 09:19 5 MG Nortriptyline HCl (Pamelor Cap) 10 mg TID PO 09/30/17 21:00 10/30/17 20:59 10/05/17 14:36 10 MG Tiotropium [place] (Spiriva Handihaler Inhaler) 1 puff DAILY INH 10/01/17 08:00 10/31/17 08:59 10/05/17 09:06 1 PUFF Ferrous Fumarate (Candace-Sequels Contr Rel Cap) 65 mg DAILY PO 10/01/17 08:00 10/31/17 08:59 10/05/17 09:07 65 MG Oxycodone HCl (Roxicodone Immediate Rel Tab) 20 mg Q6 PRN PO 09/30/17 17:15 10/30/17 17:14 10/05/17 11:17 20 MG Pantoprazole Sodium (Protonix Tab) 40 mg QAM PO 10/01/17 08:00 10/31/17 08:59 10/05/17 09:04 40 MG Glucose (Glucose 40% Gel) 15-30 GRAMS 15 GRAMS... UD PRN PO 09/30/17 17:15 10/30/17 17:14 Glucose (Glucose Chew Tab) 4-8 Tablets 4 Tabl... UD PRN PO 09/30/17 17:15 10/30/17 17:14 Dextrose (Dextrose 50% 50ML Syringe) 25-50ML OF 50% DW IV FOR... UD PRN IV 09/30/17 17:15 10/30/17 17:14 Glucagon (Glucagon Inj) 1 mg UD PRN SQ 09/30/17 17:15 10/30/17 17:14 Miscellaneous Information (Consult Glycemic Management Pharmacy) 1 ea UD PRN N/A 09/30/17 17:57 10/30/17 17:56 Bisacodyl (Dulcolax Supp) 10 mg DAILY PRN [place] 09/30/17 17:45 10/30/17 17:44 Miscellaneous (Iv Fluids Completed) 1 ea PRN PRN N/A 09/30/17 20:30 09/30/18 20:29 Insulin Aspart (novoLOG ASPART) SLIDING SCALE ACHS SC 10/01/17 07:30 10/31/17 07:29 10/05/17 12:45 13 UNITS Miconazole Nitrate (Desenex Powder) 1 appln AT BEDSIDE PLEASE PRN EXT 10/01/17 11:00 10/31/17 10:59 10/01/17 18:55 1 APPLN Nitrofurantoin Macrocrystals (Macrobid Cap) 100 mg BID PO 10/02/17 20:00 10/07/17 19:59 10/05/17 09:06 100 MG Sodium Chloride ([place] Nasal [place]) 1 sprays PRN PRN NA 10/04/17 09:30 11/03/17 09:29 Insulin Human NPH (novoLIN-N NPH) 80 units QDD SC 10/05/17 17:00 11/04/17 16:59 Insulin Human NPH (novoLIN-N NPH) 90 units QDB SC 10/06/17 08:00 11/05/17 07:59 Objective Vital Signs Date Time Temp Pulse Resp B/P (MAP) Pulse Ox O2 Delivery O2 Flow Rate FiO2 10/05/17 15:53 36.5 74 20 163/72 (102) 95 Room Air 10/05/17 09:00 99 Nasal Cannula 2.0 10/05/17 08:00 36.8 83 20 168/65 (99) 99 Nasal Cannula 2.0 10/05/17 00:31 36.7 76 20 153/75 (101) 98 Nasal Cannula 3.0 10/05/17 00:15 Nasal Cannula 3.0 Physical Exam General Appearance: WD/WN, no apparent distress, + obese Eyes: normal inspection ENT: hearing grossly normal Neck: supple Respiratory/Chest: chest non-tender, lungs clear, normal breath sounds, no respiratory distress Cardiovascular: regular rate, rhythm Abdomen: soft Extremities: + pedal edema, + pertinent finding (thickned plaques on b/l lower extremities) Skin: + pertinent finding (psoriasis) Assessment and Plan 62-year-old female past medical history of diabetes type 2 on insulin pump and metformin, CKD stage III, hypertension, hyperlipidemia, severe psoriasis, chronic pain, COPD presented to the ER after she had a fall secondary to ambulatory dysfunction. Awaiting placement for rehab. No new concerns Ambulatory Dysfunction - S/p Fall No acute fractures noted on imaging PT/OT on board Pain management with home medications including methadone, oxycodone which she uses for chronic pain. DM2 w neuropathy ISS, pump removed as blood sugars dipped to 40s after admission Continue Gabapentin 600mg TID Continue Nortriptyline 10mg TID. CKD stage III Cr at 0.9 UTI Uc positive for E.coli. Continue Macrobid day 3 Constipation Bowel regimen with miralax daily, dulcolax tabs. Can use MOM prn. HTN / HLD Continue coreg 3.125mg BID - Continue lasix 60 mg PO daily -Continue Lipitor 10mg daily COPD/obesity hypoventilation syndrome - O2 via NC - continue Advair, Spiriva. Bilateral LE chronic venous stasis changes. psoriasis Derm follow up on discharge. Wound care DVT Proph Lovenox 40 mg SQ daily. FULL CODE Dispo: Still awaiting placement. CM following Resident Physician Supervision Note: I interviewed and examined the patient. Discussed with Dr. Hopkins and agree with findings and plan as documented in the note. Any exceptions or clarifications are listed here: None Documented By: Jim waggoner tthe same was getting discouaraged about placement discussed that this is common to have delays in finding beds R knee bothering her a lot - used voltaren gel before but now plaques cover most of knee willing to try to see if it'll help vitals noted nad breathing unlabored thick plaques b/l LE up to and above knees OA - trial of voltaren gel again - risks/benefits discussed and will try weakness/ambulatory dysfunciton - for placement Resident Tracking Resident Involvement: Resident Care Provided Care Provided: Adult Hospital Medicine
[2017-10-05] MEDS: INSULIN HUMAN NPH SC SCH (17:31)
[2017-10-05] MEDS: DICLOFENAC SOD 1% GEL 100 GM TUBE EXT SCH (20:39)
[2017-10-05] MEDS: ATORVASTATIN 10 MG TAB PO SCH (20:39)
[2017-10-05] MEDS: ENOXAPARIN 40 MG/0.4 ML SYR SQ SCH (20:42)
[2017-10-06 00:23] VITALS: BP 147/80; PULSE 72; TEMP 36.4; O2SAT 98
[2017-10-06] MEDS: OXYCODONE HCL IR 5 MG TAB (IMMEDIATE RELEASE) PO PRN ×3 (05:16→18:09)
[2017-10-06 06:29] LABS: HEMATOCRIT 36.8 % (37-47); HEMOGLOBIN 10.7 g/dL (12.0-16.0); MEAN CELL VOLUME 83.1 fL (80-100); MEAN CORPUSCULAR HEMOGLOBIN 24.2 pg (25-34); MEAN CORPUSCULAR HGB CONC 29.1 g/dl (32-36); MEAN PLATELET VOLUME 8.7 fL (7.4-10.4); PLATELET COUNT 243 K/uL (130-400); RED CELL DISTRIBUTION WIDTH CV 17.4 % (11.5-14.5); RED CELL DISTRIBUTION WIDTH SD 52.4 fL (36.4-46.3); WHITE BLOOD COUNT 9.24 K/uL (4.8-10.8)
[2017-10-06] MEDS: INSULIN ASPART 100 UNITS/ML 3 ML PEN SC SCH ×4 (06:30→20:54)
[2017-10-06 07:44] VITALS: BP 144/69; PULSE 80; TEMP 36.8; O2SAT 99
[2017-10-06 08:00] VITALS: O2SAT 99
[2017-10-06] MEDS: TIOTROPIUM BROMIDE 5 PUFF/90 MCG INH INH SCH (08:00)
[2017-10-06] MEDS: DICLOFENAC SOD 1% GEL 100 GM TUBE EXT SCH ×4 (09:04→20:51)
[2017-10-06] MEDS: FLUTICASONE/SALMETEROL 250/50 (ADVAIR) 14 PUFF/1 INHALER INH SCH ×2 (09:06→20:52)
[2017-10-06] MEDS: METFORMIN HCL 850 MG TAB PO SCH ×3 (09:07→17:23)
[2017-10-06] MEDS: OMEGA-3 (PURIFIED FISH OIL) 1 GM CAP PO SCH ×3 (09:07→20:53)
[2017-10-06] MEDS: NITROFURANTOIN MONOHYDRATE 100 MG CAP PO SCH ×2 (09:08→20:53)
[2017-10-06] MEDS: NORTRIPTYLINE HCL 10 MG CAP PO SCH ×3 (09:08→20:53)
[2017-10-06] MEDS: PANTOprazole SOD 40 MG TAB PO SCH (09:08)
[2017-10-06] MEDS: FERROUS FUMARATE CONTR REL CAP 65 MG CAPCR PO SCH (09:08)
[2017-10-06] MEDS: FUROSEMIDE 20 MG TAB PO SCH (09:08)
[2017-10-06] MEDS: ACETAMINOPHEN 325 MG TAB PO PRN ×2 (09:19→16:16)
[2017-10-06] MEDS: GABAPENTIN 600 MG TAB PO SCH ×3 (09:21→20:52)
[2017-10-06] MEDS: POLYETHYLENE (MIRALAX) 17 GM PACK PO SCH (09:21)
[2017-10-06] MEDS: INSULIN HUMAN NPH SC SCH ×2 (09:36→17:32)
[2017-10-06] MEDS: METHADONE HCL 5 MG TAB PO SCH ×2 (09:39→20:52)
[2017-10-06] MEDS: CARVEDILOL 3.125 MG TAB PO SCH ×2 (11:56→17:23)
[2017-10-06 16:00] VITALS: O2SAT 99
[2017-10-06 16:18] VITALS: BP 172/68; PULSE 77; TEMP 36.8; O2SAT 98
[2017-10-06 18:14] VITALS: BP 126/66; O2SAT 98
[2017-10-06] MEDS: ATORVASTATIN 10 MG TAB PO SCH (20:53)
[2017-10-06] MEDS: ENOXAPARIN 40 MG/0.4 ML SYR SQ SCH (20:55)
[2017-10-07 00:15] VITALS: BP 163/81; PULSE 77; TEMP 36.6; O2SAT 99
[2017-10-07] MEDS: OXYCODONE HCL IR 5 MG TAB (IMMEDIATE RELEASE) PO PRN ×3 (03:55→16:46)
--- NOTE | 2017-10-07 05:48 | Family Medicine Progress Note ---
Progress Note Date of Service Oct 06, 2017. Subjective Pt evaluation today including: conversation w/ patient, physical exam, chart review, lab review Pain: well ocntroilled Constitutional: No fever, No chills Eyes: No worsening of vision ENT: No hearing loss Medications Current Inpatient Medications Medications (Trade) Dose Ordered Sig/Wes Route Start Time Stop Time Status Last Admin Dose Admin Enoxaparin Sodium (Lovenox Inj) 40 mg Q24H SQ 09/30/17 22:00 10/30/17 17:14 10/06/17 20:55 40 MG Acetaminophen (Tylenol Tab) 650 mg Q4H PRN PO 09/30/17 17:15 10/30/17 17:14 10/06/17 16:16 650 MG Magnesium Hydroxide (Milk Of Magnesia Susp) 30 ml Q6H PRN PO 09/30/17 17:15 10/30/17 17:14 Polyethylene (Miralax Powder Packet) 17 gm DAILY PO 10/01/17 08:00 10/31/17 08:59 10/06/17 09:21 17 GM Ondansetron HCl (Zofran Inj) 4 mg Q6H PRN IV 09/30/17 17:15 10/30/17 17:14 Atorvastatin Calcium (Lipitor Tab) 10 mg HS PO 09/30/17 21:00 10/30/17 20:59 10/06/17 20:53 10 MG Carvedilol (Coreg Tab) 3.125 mg BIDM PO 09/30/17 21:00 10/30/17 20:59 10/06/17 17:23 3.125 MG Fish Oil ([place]-3 (Purified Fish Oil) Cap) 1 gm TID PO 09/30/17 21:00 10/30/17 20:59 10/06/17 20:53 1 GM Salmeterol Xinafoate/ Fluticasone (Advair Diskus 250/50 Inh) 1 puff BID INH 09/30/17 20:39 10/30/17 20:59 10/06/17 20:52 1 PUFF Furosemide (Lasix Tab) 60 mg DAILY PO 10/01/17 08:00 10/31/17 08:59 10/06/17 09:08 60 MG Gabapentin (Neurontin Tab) 600 mg TID PO 09/30/17 21:00 10/30/17 20:59 10/06/17 20:52 600 MG Metformin HCl (Glucophage Tab) 850 mg TIDM PO 10/01/17 08:00 10/31/17 07:59 10/06/17 17:23 850 MG Methadone HCl (Dolophine Tab) 5 mg BID PO 09/30/17 21:00 10/14/17 20:59 10/06/17 20:52 5 MG Nortriptyline HCl (Pamelor Cap) 10 mg TID PO 09/30/17 21:00 10/30/17 20:59 10/06/17 20:53 10 MG Tiotropium [place] (Spiriva Handihaler Inhaler) 1 puff DAILY INH 10/01/17 08:00 10/31/17 08:59 10/06/17 08:00 1 PUFF Ferrous Fumarate ([place]-Sequels Contr Rel Cap) 65 mg DAILY PO 10/01/17 08:00 10/31/17 08:59 10/06/17 09:08 65 MG Oxycodone HCl (Roxicodone Immediate Rel Tab) 20 mg Q6 PRN PO 09/30/17 17:15 10/30/17 17:14 10/07/17 03:55 20 MG Pantoprazole Sodium (Protonix Tab) 40 mg QAM PO 10/01/17 08:00 10/31/17 08:59 10/06/17 09:08 40 MG Glucose (Glucose 40% Gel) 15-30 GRAMS 15 GRAMS... UD PRN PO 09/30/17 17:15 10/30/17 17:14 Glucose (Glucose Chew Tab) 4-8 Tablets 4 Tabl... UD PRN PO 09/30/17 17:15 10/30/17 17:14 Dextrose (Dextrose 50% 50ML Syringe) 25-50ML OF 50% DW IV FOR... UD PRN IV 09/30/17 17:15 10/30/17 17:14 Glucagon (Glucagon Inj) 1 mg UD PRN SQ 09/30/17 17:15 10/30/17 17:14 Miscellaneous Information (Consult Glycemic Management Pharmacy) 1 ea UD PRN N/A 09/30/17 17:57 10/30/17 17:56 Bisacodyl (Dulcolax Supp) 10 mg DAILY PRN [place] 09/30/17 17:45 10/30/17 17:44 Miscellaneous (Iv Fluids Completed) 1 ea PRN PRN N/A 09/30/17 20:30 09/30/18 20:29 Insulin Aspart (novoLOG ASPART) SLIDING SCALE ACHS SC 10/01/17 07:30 10/31/17 07:29 10/06/17 17:31 3 UNITS Miconazole Nitrate (Desenex Powder) 1 appln AT BEDSIDE PLEASE PRN EXT 10/01/17 11:00 10/31/17 10:59 10/01/17 18:55 1 APPLN Nitrofurantoin Macrocrystals (Macrobid Cap) 100 mg BID PO 10/02/17 20:00 10/07/17 19:59 10/06/17 20:53 100 MG Sodium Chloride ([place] Nasal [place]) 1 sprays PRN PRN NA 10/04/17 09:30 11/03/17 09:29 Insulin Human NPH (novoLIN-N NPH) 80 units QDD SC 10/05/17 17:00 11/04/17 16:59 10/06/17 17:32 80 UNITS Insulin Human NPH (novoLIN-N NPH) 90 units QDB SC 10/06/17 08:00 11/05/17 07:59 10/06/17 09:36 90 UNITS Diclofenac Sodium (Voltaren 1% Top Gel) 1 appln QID EXT 10/05/17 20:00 11/04/17 19:59 10/06/17 20:51 1 APPLN Diphenhydramine HCl (Benadryl Cap) 25 mg QID PRN PO 10/06/17 16:45 11/05/17 16:44 10/07/17 03:53 25 MG Objective Vital Signs Date Time Temp Pulse Resp B/P (MAP) Pulse Ox O2 Delivery O2 Flow Rate FiO2 10/07/17 00:15 36.6 77 20 163/81 (108) 99 Nasal Cannula 2.0 10/07/17 00:00 Nasal Cannula 2.0 10/06/17 18:14 19 126/66 (86) 98 Nasal Cannula 3.0 10/06/17 16:18 36.8 77 20 172/68 (102) 98 Nasal Cannula 3.0 10/06/17 16:00 99 Room Air 2.0 10/06/17 08:00 99 Room Air 2.0 10/06/17 07:44 36.8 80 20 144/69 (94) 99 Room Air Physical Exam General Appearance: WD/WN, + obese Eyes: normal inspection ENT: hearing grossly normal Neck: supple Respiratory/Chest: lungs clear, normal breath sounds, no respiratory distress Cardiovascular: regular rate, rhythm Abdomen: normal bowel sounds, non tender Extremities: + pedal edema Neurologic/Psychiatric: alert, normal mood/affect, oriented x 3 Skin: + pertinent finding (thickened plaques b/l LE, sloughing off with bleeding points) Laboratory Results Test 10/06/17 20:05 Bedside Glucose 137 mg/dl (70-90) Assessment and Plan 62-year-old female past medical history of diabetes type 2 on insulin pump and metformin, CKD stage III, hypertension, hyperlipidemia, severe psoriasis, chronic pain, COPD presented to the ER after she had a fall secondary to ambulatory dysfunction. Awaiting placement for rehab. plaques sloughing off and oozing , also c/o itching in lower back, benadryl added for symptomatic relief Ambulatory Dysfunction - S/p Fall No acute fractures noted on imaging PT/OT on board Pain management with home medications including methadone, oxycodone which she uses for chronic pain. DM2 w neuropathy ISS, pump removed as blood sugars dipped to 40s after admission Continue Gabapentin 600mg TID Continue Nortriptyline 10mg TID. CKD stage III Cr at 0.9 UTI Uc positive for E.coli. Continue Macrobid day 3 Constipation Bowel regimen with miralax daily, dulcolax tabs. Can use MOM prn. HTN / HLD Continue coreg 3.125mg BID - Continue lasix 60 mg PO daily -Continue Lipitor 10mg daily COPD/obesity hypoventilation syndrome - O2 via NC - continue Advair, Spiriva. Bilateral LE chronic venous stasis changes. psoriasis Derm follow up on discharge. Wound care DVT Proph Lovenox 40 mg SQ daily. FULL CODE Dispo: Still awaiting placement. CM following Resident Physician Supervision Note: I interviewed and examined the patient. Discussed with Dr. Hopkins and agree with findings and plan as documented in the note. Any exceptions or clarifications are listed here: None Documented By: Jim Hong feeling about the same still waiting placmeent no new complaints vitals noted nad breathing unlabored thick plaques b/l LE up to and above knees OA - trial of voltaren gel again chronic pain - home meds weakness/ambulatory dysfunciton - for placement once available again date of service 10/06, note is late addendum Resident Tracking Resident Involvement: Resident Care Provided Care Provided: Adult Hospital Medicine
[2017-10-07 07:23] VITALS: BP 156/69; PULSE 74; TEMP 36.6; O2SAT 99
[2017-10-07] MEDS: FLUTICASONE/SALMETEROL 250/50 (ADVAIR) 14 PUFF/1 INHALER INH SCH ×2 (08:56→19:22)
[2017-10-07] MEDS: DICLOFENAC SOD 1% GEL 100 GM TUBE EXT SCH ×4 (09:01→19:22)
[2017-10-07] MEDS: FUROSEMIDE 20 MG TAB PO SCH (09:02)
[2017-10-07] MEDS: CARVEDILOL 3.125 MG TAB PO SCH ×2 (09:02→16:48)
[2017-10-07] MEDS: NITROFURANTOIN MONOHYDRATE 100 MG CAP PO SCH (09:02)
[2017-10-07] MEDS: NORTRIPTYLINE HCL 10 MG CAP PO SCH ×3 (09:02→19:24)
[2017-10-07] MEDS: OMEGA-3 (PURIFIED FISH OIL) 1 GM CAP PO SCH ×3 (09:02→19:24)
[2017-10-07] MEDS: GABAPENTIN 600 MG TAB PO SCH ×3 (09:03→19:23)
[2017-10-07] MEDS: METFORMIN HCL 850 MG TAB PO SCH ×3 (09:03→16:49)
[2017-10-07] MEDS: POLYETHYLENE (MIRALAX) 17 GM PACK PO SCH (09:03)
[2017-10-07] MEDS: FERROUS FUMARATE CONTR REL CAP 65 MG CAPCR PO SCH (09:03)
[2017-10-07] MEDS: PANTOprazole SOD 40 MG TAB PO SCH (09:03)
[2017-10-07] MEDS: INSULIN ASPART 100 UNITS/ML 3 ML PEN SC SCH ×3 (09:11→16:30)
[2017-10-07] MEDS: INSULIN HUMAN NPH SC SCH ×2 (09:11→16:51)
[2017-10-07] MEDS: METHADONE HCL 5 MG TAB PO SCH ×2 (09:13→19:23)
[2017-10-07] MEDS: TIOTROPIUM BROMIDE 5 PUFF/90 MCG INH INH SCH (09:17)
[2017-10-07] MEDS: ACETAMINOPHEN 325 MG TAB PO PRN (11:43)
--- NOTE | 2017-10-07 13:31 | Pharmacy Progress Note ---
Pharmacy Glycemic Short Note 2 Date of Service Oct 07, 2017. OUTPATIENT ANTIDIABETIC REGIMEN: * U-500 insulin pump [facility] * Basal rates * 2.4 units/hr *of U-500* [id number] (note: this is actually 12 units/hr *of insulin*) * 2.1 units/hr *of U-500* [id number] (note: this is actually 10.5 units/hr *of insulin*) * Total basal insulin dose = 273 units *of insulin*/day * Bolus doses * 5 units *of U-500* AC (note: this is actually 25 units *of insulin*) * Total bolus insulin dose = 75 units *of insulin*/day * Total daily dose ~348 units *of insulin*/day ASSESSMENT: * Patient is currently receiving an average of 181 units of insulin per day. This is HALF of outpatient dosing. * Patient was switched from U-500 regular insulin to NPH on 10/04 PM. Please see progress note from 10/04 regarding details of switch. * Current regimen: * 90 units of NPH in the morning with breakfast * 80 units of NPH in the evening with dinner * ~12 units of correctional insulin used per day * BSGs over the past 24 hours: 113 (fasting), 176, 153, 137, 144(fasting) * Will continue current regimen at this time PLAN FOR INPATIENT GLYCEMIC CONTROL: * Continue metformin 850 mg TID * Basal/prandial insulin * Increase NPH to 90 units qAM with breakfast * Increase NPH to 80 units qPM with dinner * Bolus insulin * NovoLog per scale ACHS or Q6hrs while NPO * Goal range: Low 110 mg/dL - High 140 mg/dL * Correction Factor: 5 mg/dL/unit PLAN FOR DISCHARGE: * If going to a rehab facility, plan may be dependent on what they allow at the specific facility. Some may not even allow an insulin pump? * Would recommend utilizing U-500 injections instead of adjusting the settings on the patient's pump, especially since these settings would only be temporary. HOWEVER, many facilities are not familiar with U-500 and there is a huge risk of error with this extremely concentrated insulin. Since patient is only requiring ~ 150 units/day, will change to NPH and prep for transfer. * Recommend: * Hold U-500 insulin for rehab stay * Use instead: NPH 90 units with breakfast and 80 units with dinner * Continue Metformin 850mg PO TIDM * NovoLog SSI ACHS per goal range/CF only as above
[2017-10-07 13:41] VITALS: BP 156/69; PULSE 74; TEMP 36.6; O2SAT 99
[2017-10-07] MEDS ORDERED: OXYC20TA32 PO (13:47)
[2017-10-07] MEDS ORDERED: METH5TAB2 PO (13:47)
--- NOTE | 2017-10-07 13:55 | Discharge Instructions ---
Discharge Instructions Date of Service Oct 07, 2017. Admission Reason for Admission: Ambulatory Dysfunction Discharge Discharge Diagnosis / Problem: ambulatory dysfunction Discharge Goals Goal(s): Decrease discomfort, Improve function Activity Recommendations Activity Limitations: per Instructions/Follow-up section . Instructions / Follow-Up Instructions / Follow-Up 62-year-old female past medical history of diabetes type 2 on insulin pump and metformin, CKD stage III, hypertension, hyperlipidemia, severe psoriasis, chronic pain, COPD presented to the ER after she had a fall secondary to ambulatory dysfunction. Ambulatory Dysfunction - S/p Fall -No acute fractures noted on imaging - Continue PT/OT - Continue Pain management with home medications including methadone, oxycodone which she uses for chronic pain DM2 w neuropathy Home insulin pump has been stopped due to concerns of low blood sugar as her diet is more controlled. - Insulin instructions per pharmacy:Recommend: * Hold U-500 insulin for rehab stay * Use instead: NPH 90 units with breakfast and 80 units with dinner * Continue Metformin 850mg PO TIDM * NovoLog SSI ACHS per goal range/CF : * Goal range: Low 110 mg/dL - High 140 mg/dL * Correction Factor: 5 mg/dL/unit Continue Gabapentin 600mg TID Continue Nortriptyline 10mg TID. Constipation Bowel regimen with miralax daily, dulcolax tabs. Can use milk of magnesia s an outpatient HTN / HLD -Continue coreg 3.125mg BID - Continue lasix 60 mg PO daily -Continue Lipitor 10mg daily COPD/obesity hypoventilation syndrome - O2 via NC - continue Advair, Spiriva. Bilateral LE chronic venous stasis changes. psoriasis Derm follow up on discharge. Wound care Please follow up with wound care for bilateral lower extremity plaques Follow up with primary care upon discharge Current Hospital Diet Patient's current hospital diet: Diabetes Type 2 Diet, AHA Diet (Heart Healthy) Discharge Diet Recommended Diet: AHA Diet (Heart Healthy), Diabetes Type 2 Diet Pending Studies Studies pending at discharge: no Laboratory Results Hemoglobin A1c Test 10/01/17 06:17 Range/Units Estimated Average Glucose 105 mg/dl Hemoglobin A1c 5.3 4.5-5.6 % Medical Emergencies . Who to Call and When: Medical Emergencies: If at any time you feel your situation is an emergency, please call 911 immediately. . Non-Emergent Contact Non-Emergency issues call your: Primary Care Provider . . "Provider Documentation" section prepared by Chelsea Hopkins. . Resident Tracking Resident Involvement: Resident Care Provided Care Provided: Adult [facility] Medicine
--- NOTE | 2017-10-07 13:55 | Discharge Summary ---
Discharge Summary Date of Service Oct 07, 2017. Discharge Summary Admission Date: Sep 30, 2017 at 17:15 Discharge Date: Oct 07, 2017 Discharge Disposition: Rehab Principal Diagnosis: ambulatory dysfunction Problems/Secondary Diagnoses: morbid obesity, diabetes Consultations: wound care and pharmacy for glycemic control Medication Reconciliation Continued Medications: Atorvastatin (Lipitor) 10 Mg Tab 10 MG PO HS, TAB Carvedilol (Coreg) 3.125 Mg Tab 3.125 MG PO BIDM, TAB Ergocalciferol (Vitamin D 14985 Unit) 50,000 Unit Cap 384354 UNIT PO WK, CAP Ferrous Fumarate (Iron) Unknown Strength Tab 65 MG PO DAILY Fish Oil ([place]-3) 1 Ea Cap 1 CAP PO TID, CAP Fluticasone Prop/Salmeterol (Advair Diskus 250/50 60 Dose) 1 Ea Aerp 1 PUFF INH BID, INHALER Furosemide (Lasix) 40 Mg Tab 60 MG PO DAILY, TAB Gabapentin (Gabapentin) 600 Mg Tab 600 MG PO TID Metformin Hcl (Glucophage) 850 Mg Tab 850 MG PO TIDM, TAB Methadone Hcl (Dolophine) 5 Mg Tab 5 MG PO BID, #3 TAB (This prescription has been renewed) Nortriptyline (Pamelor) 10 Mg Cap 10 MG PO TID, CAP Omeprazole (Prilosec) 20 Mg Capcr 20 MG PO QAM PRN for ACID REFLUX, CAP Oxycodone Hcl (Oxycodone Hcl) 20 Mg Tab 20 MG PO Q6 PRN for Pain, #15 (This prescription has been renewed) Sennosides-Docusate Sodium (Stool Softener) Unknown Strength Tab Unknown Dose PRN for Constipation Tiotropium [place] (Spiriva Handihaler) 30 Puff/540 Mcg Aerp 18 MCG INH DAILY, INHALER Discontinued Medications: Insulin Regular (Human) (Humulin R U-500 (Concentr) 500 Unit/Ml Inj 0 INJ UD USES UP TO 350 UNITS PER DAY. Discharge Exam doing well. no acute events overnight Review of Systems: Constitutional: No fever, No chills Eyes: No worsening of vision ENT: No hearing loss Respiratory: No cough, No sputum Cardiovascular: No chest pain Abdomen: No pain, No nausea Musculoskeletal: No joint pain Genitourinary - Female: + problem reported (barboza catheter) Neurologic: No memory loss Psychiatric: No depression symptoms Endocrine: No fatigue Physical Exam: General Appearance: WD/WN, no apparent distress Eyes: normal inspection ENT: hearing grossly normal Neck: supple Respiratory/Chest: chest non-tender, lungs clear, normal breath sounds Cardiovascular: regular rate, rhythm Abdomen / GI: non tender, soft Extremities: + pertinent finding (thickened plaques bilateral lower extremities, psoriatic plaques on upper extremities) Neurologic/Psychiatric: alert, normal mood/affect, oriented x 3 Skin: normal color Hospital Course 62-year-old female with a past medical history of diabetes type 2 on insulin pump and metformin, CKD stage III, hypertension, hyperlipidemia, severe psoriasis, COPD/obesity hypoventilation syndrome, chronic pain and osteoarthritis presented to the ER after she fell while attempting to ambulate. She is essentially wheelchair-bound and after the fall she stated that she had significant right knee pain. Extensive imaging was performed to rule out fractures were all negative. She was attempted to be placed in rehab by case management in the ER but no available rehab facilities had bariatric beds available and she was admitted. She was also found to have a urinary tract infection and initially treated with Rocephin which was switched to Macrobid. A Barboza catheter was inserted due to ambulatory dysfunction. It was also noted that her blood sugars had dropped on her and her home insulin pump regimen and hence it was discontinued insulin was managed by pharmacy. Upon discharge, she was given an insulin regimen to be followed while at the rehab. She was discharged in stable condition with no change in current medications. She was recommended to follow-up with dermatology as outpatient for severe psoriasis. She also has bilateral lower extremity Plaque like thickening likely secondary to chronic venous stasis which appear to be sloughing off and oozing blood. She will need wound care for the same and will require physical therapy and Occupational Therapy for her ambulatory dysfunction. Resident Physician Supervision Note: I interviewed and examined the patient. Discussed with Dr. Hopkins and agree with findings and plan as documented in the note. Any exceptions or clarifications are listed here: None Documented By: Jim Hong feeling ok for transfer, motivated to work hard ih therapy. asks questions about rehab - i'm able to answer in fairly good detail and to her satisfaction vitals noted nad breathing unlabored thick plaques b/l LE up to and above knees OA - trial of voltaren gel chronic pain - home meds weakness/ambulatory dysfunciton - for rehab @ [facility] Total Time Spent: Less than 30 minutes This includes examination of the patient, discharge planning, medication reconciliation, and communication with other providers. Discharge Instructions Please refer to the electronic Patient Visit Report (Discharge Instructions) for additional information. Follow-Up Follow-up with PCP upon discharge from rehab Additional Copies To Emilia Posada DO
[2017-10-07 15:53] VITALS: BP 181/74; PULSE 84; TEMP 36.7; O2SAT 97
[2017-10-07 15:56] VITALS: BP 147/76
[2017-10-07] MEDS: ATORVASTATIN 10 MG TAB PO SCH (19:23)
[2017-10-07] MEDS: ENOXAPARIN 40 MG/0.4 ML SYR SQ SCH (19:25)
== END 2017-10-07 20:00 ==
LOC: EDBD 11:13 → C.EDC 11:14 → C.4E 17:15 → ENRESERV 18:59
PROVIDERS: ADMIT Family Medicine; ATTEND Family Medicine
DX: R26.9 Unspecified abnormalities of gait and mobility (principal); N39.0 Urinary tract infection, site not specified; B96.20 Unspecified Escherichia coli [E. coli] as the cause of diseases classified elsewhere; Z91.81 History of falling; E66.01 Morbid (severe) obesity due to excess calories; E11.9 Type 2 diabetes mellitus without complications; I12.9 Hypertensive chronic kidney disease with stage 1 through stage 4 chronic kidney disease, or unspecified chronic kidney disease; N18.3 Chronic kidney disease, stage 3 (moderate); E78.5 Hyperlipidemia, unspecified; L40.9 Psoriasis, unspecified; E66.2 Morbid (severe) obesity with alveolar hypoventilation; G89.29 Other chronic pain; M19.90 Unspecified osteoarthritis, unspecified site; E11.40 Type 2 diabetes mellitus with diabetic neuropathy, unspecified; K59.00 Constipation, unspecified; I87.2 Venous insufficiency (chronic) (peripheral); Z68.45 Body mass index [BMI] 70 or greater, adult; Z96.41 Presence of insulin pump (external) (internal); Z80.41 Family history of malignant neoplasm of ovary; Z83.6 Family history of other diseases of the respiratory system

== ENCOUNTER → 2017-10-13 | Outpatient (CLI) | payer BC ==
[~2017-10-13] MED LIST changes: -ALBU1AER9 PO; +CARV3.122 PO; -DICL1GEL28 TOP; -ERGO1CAP35 PO; +ERGO500037 PO; +FERR18TA2 PO; +FRS/40 PO; -LCHC12280 TOP; -LIDO4CRE10 TOP; +OMEG10007 PO; -OXGN; +SENNTAB23; +SPRIN/30 INH; -TIOTCAP INH
[2017-10-13 10:15] LABS: ALBUMIN 3.3 gm/dl (3.4-5.0); ALKALINE PHOSPHATASE 99 U/L (45-117); ALT/SGPT 17 U/L (12-78); AST/SGOT 12 U/L (15-37); BLOOD UREA NITROGEN 26 mg/dl (7-18); CALCIUM 10.1 mg/dl (8.5-10.1); CARBON DIOXIDE 35 mmol/L (21-32); CREATININE 0.96 mg/dl (0.60-1.20); GLUCOSE 195 mg/dl (70-99); POTASSIUM 3.7 mmol/L (3.5-5.1); SODIUM 131 mmol/L (136-145)
[2017-10-13 10:26] LABS: TOTAL PROTEIN 7.7 gm/dl (6.4-8.2)
[2017-10-13 10:34] LABS: BASO % 0.3 %; BASO ABS # 0.03 K/uL (0-0.2); EOS % 2.6 %; EOS ABS # 0.26 K/uL (0-0.5); HEMATOCRIT 40.6 % (37-47); IG# 0.05 K/uL (0.00-0.02); LYMPH % 12.7 %; LYMPH ABS # 1.28 K/uL (1.2-3.4); MEAN CELL VOLUME 83.5 fL (80-100); MEAN CORPUSCULAR HEMOGLOBIN 24.7 pg (25-34); MEAN CORPUSCULAR HGB CONC 29.6 g/dl (32-36); MEAN PLATELET VOLUME 9.8 fL (7.4-10.4); MONO % 7.8 %; MONO ABS # 0.79 K/uL (0.11-0.59); NEUT % 76.1 %; NEUT ABS # 7.68 K/uL (1.4-6.5); PLATELET COUNT 267 K/uL (130-400); RED CELL DISTRIBUTION WIDTH CV 17.8 % (11.5-14.5); WHITE BLOOD COUNT 10.09 K/uL (4.8-10.8)
[2017-10-13 10:38] LABS: HEMOGLOBIN A1C 5.5 % (4.5-5.6)
== END ==
LOC: C.LABUPNIT 09:24
PROVIDERS: ATTEND Nurse Practitioner Family
DX: E11.8 Type 2 diabetes mellitus with unspecified complications (principal); N18.3 Chronic kidney disease, stage 3 (moderate); D64.9 Anemia, unspecified; E55.9 Vitamin D deficiency, unspecified; R94.6 Abnormal results of thyroid function studies

== ENCOUNTER → 2017-10-17 | Outpatient (CLI) | payer BC ==
[2017-10-17 09:17] LABS: BLOOD UREA NITROGEN 21 mg/dl (7-18); CARBON DIOXIDE 38 mmol/L (21-32); CREATININE 0.96 mg/dl (0.60-1.20); GLUCOSE 185 mg/dl (70-99); POTASSIUM 4.3 mmol/L (3.5-5.1); SODIUM 132 mmol/L (136-145)
== END ==
LOC: C.LABUPNIT 08:21
PROVIDERS: ATTEND Nurse Practitioner Family
DX: N18.3 Chronic kidney disease, stage 3 (moderate) (principal)

== ENCOUNTER → 2017-11-02 | Outpatient (CLI) | payer BC ==
[2017-11-02 08:44] LABS: BLOOD UREA NITROGEN 26 mg/dl (7-18); CARBON DIOXIDE 37 mmol/L (21-32); CREATININE 0.84 mg/dl (0.60-1.20); GLUCOSE 129 mg/dl (70-99); POTASSIUM 4.2 mmol/L (3.5-5.1); SODIUM 134 mmol/L (136-145)
[2017-11-02 09:03] LABS: BASO % 0.4 %; BASO ABS # 0.05 K/uL (0-0.2); EOS % 0.9 %; EOS ABS # 0.11 K/uL (0-0.5); HEMATOCRIT 40.8 % (37-47); HEMOGLOBIN 12.1 g/dL (12.0-16.0); IG# 0.15 K/uL (0.00-0.02); LYMPH % 8.7 %; LYMPH ABS # 1.11 K/uL (1.2-3.4); MEAN CELL VOLUME 84.3 fL (80-100); MEAN CORPUSCULAR HGB CONC 29.7 g/dl (32-36); MEAN PLATELET VOLUME 9.3 fL (7.4-10.4); MONO % 6.6 %; MONO ABS # 0.84 K/uL (0.11-0.59); NEUT % 82.2 %; NEUT ABS # 10.46 K/uL (1.4-6.5); PLATELET COUNT 258 K/uL (130-400); RED CELL DISTRIBUTION WIDTH CV 17.3 % (11.5-14.5); RED CELL DISTRIBUTION WIDTH SD 53.5 fL (36.4-46.3); WHITE BLOOD COUNT 12.72 K/uL (4.8-10.8)
== END ==
LOC: C.LABUPNIT 08:05
PROVIDERS: ATTEND Nurse Practitioner Family
DX: D64.9 Anemia, unspecified (principal); N18.3 Chronic kidney disease, stage 3 (moderate)

== ENCOUNTER → 2017-11-04 | Outpatient (CLI) | payer BC ==
[2017-11-04 08:35] LABS: BASO % 0.4 %; BASO ABS # 0.05 K/uL (0-0.2); EOS % 0.9 %; EOS ABS # 0.11 K/uL (0-0.5); HEMATOCRIT 40.2 % (37-47); HEMOGLOBIN 12.2 g/dL (12.0-16.0); IG# 0.14 K/uL (0.00-0.02); LYMPH % 11.8 %; LYMPH ABS # 1.41 K/uL (1.2-3.4); MEAN CELL VOLUME 84.8 fL (80-100); MEAN CORPUSCULAR HEMOGLOBIN 25.7 pg (25-34); MEAN CORPUSCULAR HGB CONC 30.3 g/dl (32-36); MEAN PLATELET VOLUME 9.6 fL (7.4-10.4); MONO % 5.1 %; MONO ABS # 0.61 K/uL (0.11-0.59); NEUT % 80.6 %; NEUT ABS # 9.61 K/uL (1.4-6.5); PLATELET COUNT 250 K/uL (130-400); RED CELL DISTRIBUTION WIDTH CV 17.3 % (11.5-14.5); RED CELL DISTRIBUTION WIDTH SD 53.9 fL (36.4-46.3); WHITE BLOOD COUNT 11.93 K/uL (4.8-10.8)
[2017-11-04 08:45] LABS: BLOOD UREA NITROGEN 27 mg/dl (7-18); CALCIUM 9.9 mg/dl (8.5-10.1); CARBON DIOXIDE 38 mmol/L (21-32); CREATININE 0.81 mg/dl (0.60-1.20); GLUCOSE 175 mg/dl (70-99); POTASSIUM 4.1 mmol/L (3.5-5.1); SODIUM 133 mmol/L (136-145)
== END ==
LOC: C.LABUPNIT 08:16
PROVIDERS: ATTEND Nurse Practitioner Family
DX: N18.3 Chronic kidney disease, stage 3 (moderate) (principal); E78.5 Hyperlipidemia, unspecified

== ENCOUNTER → 2017-11-07 | Outpatient (CLI) | payer BC ==
[2017-11-07 09:35] LABS: HEMATOCRIT 40.2 % (37-47); MEAN CELL VOLUME 84.3 fL (80-100); MEAN CORPUSCULAR HEMOGLOBIN 25.2 pg (25-34); MEAN CORPUSCULAR HGB CONC 29.9 g/dl (32-36); MEAN PLATELET VOLUME 9.5 fL (7.4-10.4); PLATELET COUNT 256 K/uL (130-400); RED CELL DISTRIBUTION WIDTH CV 17.2 % (11.5-14.5); RED CELL DISTRIBUTION WIDTH SD 53.5 fL (36.4-46.3); WHITE BLOOD COUNT 13.53 K/uL (4.8-10.8)
[2017-11-07 09:36] LABS: BLOOD UREA NITROGEN 23 mg/dl (7-18); CARBON DIOXIDE 40 mmol/L (21-32); CREATININE 0.86 mg/dl (0.60-1.20); GLUCOSE 122 mg/dl (70-99); POTASSIUM 4.2 mmol/L (3.5-5.1); SODIUM 135 mmol/L (136-145)
== END ==
LOC: C.LABUPNIT 08:33
PROVIDERS: ATTEND Nurse Practitioner Family
DX: D64.9 Anemia, unspecified (principal); N18.3 Chronic kidney disease, stage 3 (moderate)

== ENCOUNTER → 2017-11-10 | Outpatient (CLI) | payer BC ==
[2017-11-10 10:04] LABS: BASO % 0.2 %; BASO ABS # 0.03 K/uL (0-0.2); EOS % 1.2 %; EOS ABS # 0.17 K/uL (0-0.5); HEMOGLOBIN 11.9 g/dL (12.0-16.0); IG# 0.12 K/uL (0.00-0.02); LYMPH % 11.9 %; LYMPH ABS # 1.75 K/uL (1.2-3.4); MEAN CELL VOLUME 84.4 fL (80-100); MEAN CORPUSCULAR HEMOGLOBIN 25.1 pg (25-34); MEAN CORPUSCULAR HGB CONC 29.8 g/dl (32-36); MONO % 5.5 %; NEUT % 80.4 %; NEUT ABS # 11.78 K/uL (1.4-6.5); PLATELET COUNT 270 K/uL (130-400); RED CELL DISTRIBUTION WIDTH CV 17.6 % (11.5-14.5); RED CELL DISTRIBUTION WIDTH SD 54.5 fL (36.4-46.3); WHITE BLOOD COUNT 14.65 K/uL (4.8-10.8)
== END ==
LOC: C.LABUPNIT 09:08
PROVIDERS: ATTEND Nurse Practitioner Family
DX: D64.9 Anemia, unspecified (principal)

== ENCOUNTER → 2017-11-11 | Outpatient (CLI) | payer BC | END | disposition home or self-care (01) | LOC: C.LABUPNIT 09:17 | PROVIDERS: ATTEND Nurse Practitioner Family | DX: D72.829 Elevated white blood cell count, unspecified (principal) ==

== ENCOUNTER 2017-11-16 17:10 | Emergency (ER) | payer BC ==
[~2017-11-16] VITALS: Ht 170.2 cm; Wt 176.5 kg
[~2017-11-16 17:10] MED LIST changes: -ATOR10TA82 PO; -CARV3.122 PO; -METF-383 PO; -NRN600 PO; -OMEG10007 PO
[2017-11-16] MEDS ORDERED: ATOR10TA82 PO (17:11)
[2017-11-16] MEDS ORDERED: NRN600 PO (17:11)
[2017-11-16] MEDS ORDERED: CARV3.122 PO (17:11)
[2017-11-16] MEDS ORDERED: METF-383 PO (17:11)
[2017-11-16 17:30] VITALS: TEMP 36.9; Ht 170.2 cm; Wt 176.5 kg
--- NOTE | 2017-11-16 17:42 | EMERGENCY ROOM VISIT NOTE ---
History Report prepared by Doyle: Terry Finch Under the Supervision of: Dr. Mark Bar M.D. First contact with patient: 17:11 Stated Complaint: URINARY SX (UTI) History of Present Illness The patient is a 62 year old female who presents to the Emergency Room with complaints of constant urinary symptoms for the past few days. The patient states that she was just let out of rehab two days on oral antibiotics after being admitted, though they called her back yesterday, and they told her to come to the ED for IV antibiotics. The patient notes that she was doing well since she was home, and she denies any fever, shortness of breath, cough, and abdominal pain. She states that she is usually on 2L of oxygen. The patient states that she has a catheter in place since she is unable to get up to go to the bathroom, and she states that she is on a fluid pill. The patient notes that she has been having leg swelling, though it has improved after having the fluid pill. Source of History: patient Onset: the past few days Position: other (generalized) Quality: other (urinary symptoms) Timing: constant Associated Symptoms: No fevers, No cough, No SOB, No abdominal pain Review of Systems See HPI for pertinent positives and negatives. A total of ten systems were reviewed and were otherwise negative. Past Medical & Surgical Medical Problems: (1) Ambulatory dysfunction (2) Anemia (3) Benign essential HTN (4) COPD (chronic obstructive pulmonary disease) (5) COPD exacerbation (6) DM II (diabetes mellitus, type II), controlled (7) HLD (hyperlipidemia) (8) Hypoxia (9) Obesity hypoventilation syndrome (10) ZACKARY (obstructive sleep apnea) Family History FHx: COPD (chronic obstructive pulmonary disease) FHx: ovarian cancer FHx: prostate cancer Social History Smoking Status: Former Smoker Alcohol Use: none Drug Use: none Marital Status: Housing Status: lives with significant other Occupation Status: other Current/Historical Medications Scheduled Atorvastatin (Lipitor), 10 MG PO HS Betamethasone Dip (Betamethasone Dipropionat), 1 APPLN TOP BID Carvedilol (Coreg), 3.125 MG PO BIDM Cephalexin Monohydrate (Keflex), 500 MG PO TID Clotrimazole W/ Betamethasone (Lotrisone), 1 APPLN TOP AMPM Ergocalciferol (Vitamin D 78792 Unit), 100,000 UNIT PO WK Ferrous Fumarate (Iron), 65 MG PO DAILY Fish Oil ([place]-3), 1 CAP PO TID Fluticasone Prop/Salmeterol (Advair Diskus 250/50 60 Dose), 1 PUFF INH BID Furosemide (Lasix), 40 MG PO DAILY Gabapentin (Gabapentin), 600 MG PO TID Insulin Regular (Human) (Humulin R U-500 (Concentr), UD Ketoconazole (Ketoconazole), 1 APPLN TOP DAILY Menthol-Zinc Oxide (Calmoseptine), 1 APPLN TOP TID Metformin Hcl (Glucophage), 850 MG PO TIDM Methadone Hcl (Dolophine), 5 MG PO DAILY Multivitamins/Minerals (Mvi With Minerals), 1 TAB PO DAILY Nortriptyline HCl (Nortriptyline HCl), 10 MG PO TID Omeprazole (Prilosec), 20 MG PO QAM Tiotropium [place] (Spiriva Handihaler), 1 CAP INH DAILY Scheduled PRN Diphenhydramine Hcl (Benadryl Allergy), 1 CAP PO Q6 PRN for ITCHING Ondansetron (Ondansetron HCl), 4 MG PO Q6 PRN for Nausea Oxycodone Hcl (Oxycontin), 20 MG PO Q6 PRN for PAIN 5-10 Sennosides-Docusate Sodium (Stool Softener), Unknown Dose for Constipation Allergies Coded Allergies: No Known Allergies (Unverified , 09/30/17) Physical Exam Vital Signs Date Time Temp Pulse Resp B/P (MAP) Pulse Ox O2 Delivery O2 Flow Rate FiO2 11/17/17 02:00 95 18 121/57 97 Room Air 11/16/17 23:16 98 18 103/76 96 Nasal Cannula 2.0 11/16/17 21:16 88 18 123/70 99 Nasal Cannula 2.0 11/16/17 20:13 81 11/16/17 19:30 82 18 123/55 97 Nasal Cannula 2.0 11/16/17 17:30 36.9 92 20 153/72 95 Nasal Cannula 2.0 Physical Exam GENERAL: Awake, alert, chronically ill-appearing, in no distress HENT: Normocephalic, atraumatic. Dry mucous membranes otherwise oropharynx unremarkable. EYES: Normal conjunctiva. Sclera non-icteric. NECK: Supple. No nuchal rigidity. FROM. No JVD. RESPIRATORY: Clear to auscultation. CARDIAC: Regular rate, normal rhythm. Extremities warm and well perfused. Pulses equal. ABDOMEN: Obese abdomen, soft, non-distended. No tenderness to palpation. No rebound or guarding. No masses. RECTAL: Deferred. MUSCULOSKELETAL: Chest examination reveals no tenderness. The back is symmetrical on inspection without obvious abnormality. There is no CVA tenderness to palpation. No joint edema. LOWER EXTREMITIES: Lower extremity edema. Scaly plaques throughout. Chronic psoriasis NEURO: Normal sensorium. No sensory or motor deficits noted. SKIN: Scaly plaques throughout. Chronic psoriasis. Medical Decision & Procedures Laboratory Results 11/16/17 18:05 Red Blood Count 4.81, Mean Corpuscular Volume 83.6, Mean Corpuscular Hemoglobin 26.2, Mean Corpuscular Hemoglobin Concent 31.3, Mean Platelet Volume 9.1, Neutrophils (%) (Auto) 84.5, Lymphocytes (%) (Auto) 9.5, Monocytes (%) (Auto) 3.8, Eosinophils (%) (Auto) 1.4, Basophils (%) (Auto) 0.3, Neutrophils # (Auto) 12.86, Lymphocytes # (Auto) 1.44, Monocytes # (Auto) 0.58, Eosinophils # (Auto) 0.21, Basophils # (Auto) 0.05 11/16/17 18:05 Test 11/16/17 18:05 White Blood Count 15.22 K/uL (4.8-10.8) Red Blood Count 4.81 M/uL (4.2-5.4) Hemoglobin 12.6 g/dL (12.0-16.0) Hematocrit 40.2 % (37-47) Mean Corpuscular Volume 83.6 fL (80-100) Mean Corpuscular Hemoglobin 26.2 pg (25-34) Mean Corpuscular Hemoglobin Concent 31.3 g/dl (32-36) Platelet Count 304 K/uL (130-400) Mean Platelet Volume 9.1 fL (7.4-10.4) Neutrophils (%) (Auto) 84.5 % Lymphocytes (%) (Auto) 9.5 % Monocytes (%) (Auto) 3.8 % Eosinophils (%) (Auto) 1.4 % Basophils (%) (Auto) 0.3 % Neutrophils # (Auto) 12.86 K/uL (1.4-6.5) Lymphocytes # (Auto) 1.44 K/uL (1.2-3.4) Monocytes # (Auto) 0.58 K/uL (0.11-0.59) Eosinophils # (Auto) 0.21 K/uL (0-0.5) Basophils # (Auto) 0.05 K/uL (0-0.2) RDW Standard Deviation 52.3 fL (36.4-46.3) RDW Coefficient of Variation 17.0 % (11.5-14.5) Immature Granulocyte % (Auto) 0.5 % Immature Granulocyte # (Auto) 0.08 K/uL (0.00-0.02) Anion Gap 3.0 mmol/L (3-11) Est Creatinine Clear Calc Drug Dose 123.9 ml/min Estimated GFR () 90.9 Estimated GFR (Non- 78.4 BUN/Creatinine Ratio 28.2 (10-20) Calcium Level 10.0 mg/dl (8.5-10.1) Total Bilirubin 0.4 mg/dl (0.2-1) Direct Bilirubin 0.1 mg/dl (0-0.2) Aspartate Amino Transf (AST/SGOT) 8 U/L (15-37) Alanine Aminotransferase (ALT/SGPT) 14 U/L (12-78) Alkaline Phosphatase 103 U/L (45-117) Total Protein 7.5 gm/dl (6.4-8.2) Albumin 3.0 gm/dl (3.4-5.0) Lipase 66 U/L (73-393) Procalcitonin 0.05 ng/ml (0-0.5) Laboratory results reviewed by me Medications Administered Medications (Trade) Dose Ordered Sig/Wes Route Start Time Stop Time Status Last Admin Dose Admin Gentamicin Sulfate 880 mg/ Dextrose 122 ml @ 100 mls/hr NOW STAT IV 11/16/17 19:13 11/16/17 20:26 DC 11/16/17 19:37 100 MLS/HR ED Course 171: The patient was evaluated in room B7. A complete history and physical exam was performed. 8: I reevaluated the patient, and she was doing okay, and I updated her on the results. 2102: I reevaluated the patient. Discussed results and discharge instructions: she verbalized understanding and agreement. The patient is ready for discharge. Medical Decision I reviewed the patient's past medical history, medications, and the nursing notes as described above. Differential diagnosis: Etiologies such as viral syndrome, otitis, pharyngitis, pneumonia, influenza, meningitis, urinary tract infection, sepsis, bacteremia, as well as others were entertained. The patient is a 62 y/o woman with a pmhx of diabetes type 2 on insulin pump and metformin, CKD stage III, peripheral edema, hypertension, hyperlipidemia, severe psoriasis, COPD/obesity hypoventilation syndrome, chronic pain and osteoarthritis presents emergency department after being referred by her PCP for urine cultures that were drawn on 11/11 subsequently growing resistant strain of Klebsiella as well as pansensitive E. coli per hpi. Of note, the patient has a chronic indwelling Garcia catheter due to her immobility and her current diuresis regimen. The patient reports that she was discharged from her rehab on 430 and has been treated with Keflex and has subsequently been feeling improved with no recurrence of low-grade fevers which is what prompted her UA initially in the setting of her chronically indwelling Garcia catheter. I discussed the case with Dr. Ellison, infectious disease, who agrees that given that the patient does not report any worsening symptoms as well as the fact that the patient has an indwelling Garcia catheter there is a high probability that the patient's resistant Klebsiella is likely due to colonization/contamination. We agreed that if the patient's lab tests are reassuring and the patient otherwise continues to feel improved there is no need to admit the patient at this time. Rather we can give a one-time dose of IV gentamicin for which cultures do demonstrate sensitivity. Subsequently, the patient's labs are reassuring. While the patient's WBC is marginally elevated from previous 15 from 14. The patient's pro-calcitonin is 0.05 which does not suggest any severe/worsening infection. Presumably if the patient had a true resistant Klebsiella infection had not been treated her lab work and clinical status would likely have worsened. These findings were discussed with the patient who is agreeable. We will continue the patient on her current Keflex prescription for her pansensitive E. coli. Findings and plan for follow-up reviewed with patient. Patient agreeable and d/c'd per discharge instructions. Medication Reconcilliation Current Medication List: was personally reviewed by me Blood Pressure Screening Patient's blood pressure: Normal blood pressure Impression Primary Impression: UTI (urinary tract infection) Scribe Attestation The scribe's documentation has been prepared under my direction and personally reviewed by me in its entirety. I confirm that the note above accurately reflects all work, treatment, procedures, and medical decision making performed by me. Departure Information Dispostion Home / Self-Care Referrals Sonya Castillo (PCP) Forms HOME CARE DOCUMENTATION FORM, IMPORTANT VISIT INFORMATION, WORK / SCHOOL INSTRUCTIONS Patient Instructions ED UTI Cystitis Female, [facility] Additional Instructions Please follow up with your primary care physician in the next 1-3 days for re- evaluation. Given your reassuring lab test today the resistant bacteria in your urine is most likely due to colonization/contaminant. For completeness you were given an IV dose of an antibiotic that would cover this infection. Otherwise, continue your current Keflex as prescribed. Return to the emergency department for worsening symptoms as described in the accompanying instructions.
[2017-11-16] MEDS ORDERED: OMEG10007 PO (17:56)
[2017-11-16 18:20] LABS: BASO % 0.3 %; BASO ABS # 0.05 K/uL (0-0.2); EOS % 1.4 %; EOS ABS # 0.21 K/uL (0-0.5); HEMATOCRIT 40.2 % (37-47); HEMOGLOBIN 12.6 g/dL (12.0-16.0); IG# 0.08 K/uL (0.00-0.02); LYMPH % 9.5 %; LYMPH ABS # 1.44 K/uL (1.2-3.4); MEAN CELL VOLUME 83.6 fL (80-100); MEAN CORPUSCULAR HEMOGLOBIN 26.2 pg (25-34); MEAN CORPUSCULAR HGB CONC 31.3 g/dl (32-36); MEAN PLATELET VOLUME 9.1 fL (7.4-10.4); MONO % 3.8 %; MONO ABS # 0.58 K/uL (0.11-0.59); NEUT % 84.5 %; NEUT ABS # 12.86 K/uL (1.4-6.5); PLATELET COUNT 304 K/uL (130-400); RED CELL DISTRIBUTION WIDTH SD 52.3 fL (36.4-46.3); WHITE BLOOD COUNT 15.22 K/uL (4.8-10.8)
[2017-11-16 18:38] LABS: CREATININE 0.81 mg/dl (0.60-1.20)
[2017-11-16 18:40] LABS: TOTAL PROTEIN 7.5 gm/dl (6.4-8.2)
[2017-11-16] MEDS ORDERED: CEPH500C2 PO (18:53)
[2017-11-16] MEDS ORDERED: GENTAMICIN IV STA (19:13)
[2017-11-16] MEDS ORDERED: DEXTROSE 5% IV STA (19:13)
[2017-11-16] MEDS ORDERED: NORT10CA4 PO (19:14)
[2017-11-16] MEDS ORDERED: MENTOIN TOP (19:14)
[2017-11-16] MEDS ORDERED: DPRSL60 TOP (19:14)
[2017-11-16] MEDS ORDERED: CLOTCRE TOP (19:14)
[2017-11-16] MEDS ORDERED: FURO-85 PO (19:14)
[2017-11-16] MEDS ORDERED: MULT-513 PO (19:14)
[2017-11-16] MEDS ORDERED: NZRSHM TOP (19:14)
[2017-11-16] MEDS ORDERED: METH5TAB2 PO (19:14)
[2017-11-16] MEDS ORDERED: OXYC20TA50 PO (19:14)
[2017-11-16] MEDS ORDERED: ONDA4TAB9 PO (19:14)
[2017-11-16] MEDS ORDERED: DIPH25CA65 PO (19:14)
[2017-11-16] MEDS ORDERED: INSUINJ2 (19:14)
[2017-11-16] MEDS ORDERED: SPRIN INH (19:14)
[2017-11-17 02:00] VITALS: BP 121/57; PULSE 95; O2SAT 97
== END 2017-11-16 23:20 | disposition home or self-care (01) ==
LOC: EDBD 17:10 → C.EDB 17:11
DX: N39.0 Urinary tract infection, site not specified (principal); J44.9 Chronic obstructive pulmonary disease, unspecified; I10 Essential (primary) hypertension; E11.9 Type 2 diabetes mellitus without complications; Z79.899 Other long term (current) drug therapy; Z79.4 Long term (current) use of insulin; Z87.891 Personal history of nicotine dependence; Z83.6 Family history of other diseases of the respiratory system; Z80.41 Family history of malignant neoplasm of ovary

== ENCOUNTER 2018-11-15 07:30 | Inpatient (IN) ==
--- OUTSIDE RECORDS SUMMARY | 2018-11-15 07:35 | External Medical Summary | Continuity of Care Document ---
:1955 Demographics Address [address] [facility] [place] [address] Phone Unavailable Preferred Language en Marital Status Unknown Amish Affiliation Unknown Race White Ethnic Group Unknown Author Name Onesimo Chapman, Provider Address Unavailable Unavailable , Care Team Providers Name Role Phone Unavailable Unavailable Unavailable Emilia Posada DO Unavailable [email or web address] Lawrence ROBERTS, Padmini Unavailable [email or web address] [email or web address] DO Unavailable [email or web address] GALI SAUNDERS Unavailable Unavailable Maged Chapman Unavailable [email or web address] Unavailable Unavailable Unavailable Problems Vitamin D deficiency (268.9) (E55.9) Psoriasis (696.1) (L40.9) Depressive disorder (311) (F32.9) Controlled substance agreement signed (V58.69) (Z79.899) UTI (urinary tract infection) (599.0) (N39.0) CKD (chronic kidney disease) stage 3, GFR 30-59 ml/min (585. 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) Physical deconditioning (799.3) (R53.81) Lung nodule (793.11) (R91.1) Need for pneumococcal vaccination (V03.82) (Z23) Acid reflux (530.81) (K21.9) Anxiety (300.00) (F41.9) Visit for screening mammogram (V76.12) (Z12.31) Hearing difficulty (389.9) (H91.90) At high risk for skin breakdown (V49.89) (Z91.89) Dark urine (791.9) (R82.998) Encounter for medication monitoring (V58.83) (Z51.81) Chronic pain syndrome (338.4) (G89.4) Need for influenza vaccination (V04.81) (Z23) Chronic pain (338.29) (G89.29) Generalized weakness (780.79) (R53.1) Urinary incontinence (788.30) (R32) Allergies and Adverse Reactions No Known Drug Allergies (Allergy) Medications Spiriva HandiHaler 18 MCG Inhalation Cap solitario; INHALE CONTENTS OF CAPSULE ONCE DAY DO Emilia Posada Start: 21-Jan-2015 Quantity: 20 Refills: 5 Triamcinolone Acetonide 0.1 % External O intment; applied BID to all areas of the arms and legs , MIsabellDIsabell Start: 04-Jan-2018 Refills: 0 Sennosides-Docusate Sodium 8.6-50 MG Oral Tablet; USE DIR ECTED. Adela Start: 04-Jan-2018 Refills: 0 diphenhydrAMINE HCl - 25 MG Oral Tablet; TAKE 1 TABLET EVERY 6 HOURS NEEDED. Adela Start: 04-Jan-2018 Refills: 0 Vitamin D (Ergocalciferol) 08586 UNIT Oral Capsule; TA KE 2 CAPSULE Weekly DO Vince Webb Start: 21-Jan-2015 Quantity: 60 Refills: 3 Sure-Test EasyPlus Mini Test In Vitro Strip Adela Start: 21-Jan-2015 Refills: 0 Nystatin-Triamcinolone 432632-0.1 UNIT/G M-% External Cream; apply to inguinal, abdominal and inframammary folds daily , M.DIsabell Start: 018 Refills: 0 Ketoconazole 2 % External Shampoo; to wask the legs, g roin and feet daily , M.DIsabell Start: 15-Nov-2017 Refills: 0 120 ML Bottle Glucagon Emergency 1 MG Injection Kit Adela St art: 15-Nov-2017 Refills: 0 Calmoseptine 0.44-20.6 % OINT; apply to left gluteus topically every shift for healing promotion , Adela Start: 15-Nov-2017 Refills: 0 71 GM Jar Methadone HCl - 5 MG Oral Tablet; TAKE 1 TABLET TWICE DAILY. DO Emilia Posada Start: 21-Jan-2015 Quantity: 60 Refills: 0 Advair Diskus 250-50 MCG/DOSE Inhalation Aerosol Powder Breath Activated; INHALE 1 PUFF TWICE DAILY. DO Emilia Posada Start: 21-Jan-2015 Quantity: 1 14 Inhaler Pack Refills: 1 Nortriptyline HCl - 10 MG Oral Capsule; TAKE 1 CAPSULE 3 TIMES DAILY. DO Emilia Posada Start: 21-Jan-2015 Quantity: 90 Refills: 3 metFORMIN HCl - 850 MG Oral Tablet; TAKE 1 TABLET 3 TI MES DAILY WITH MEALS. DO Emilia Posada Start: 21-Jan-2015 Quantity: 90 Refills: 2 HumuLIN R U-500 (CONCENTRATED) 500 UNIT/ ML Subcutaneous Solution; VIA INSULIN PUMP USING UP TO 350 UNITS (0.66ML) PER DAY DO Emilia Posada Start: Aug-2018 Quantity: 20 Refills: 5 Omeprazole 20 MG Oral Capsule Delayed Re lease; TAKE 1 CAPSULE DAILY EVERY MORNING BEFORE BREAKFAST. DO Emilia Posada Start: 21-Jan-2015 Quantity: 30 Refills: 3 Insulin Syringe 29G X 1/2" 1 ML , M.D. Start: Refills: 0 Oxygen; Use 2 L/min at night while sleeping. Adela Start: 09-Oct-2015 Refills: 0 oxyCODONE HCl - 20 MG Oral Tablet; 1 TABLET EVERY 6 HO URS NEEDED. DO Emilia Posada Start: 21-Jan-2015 Quantity: 130 Refills: 0 Diclofenac Sodium 1 % Transdermal Gel; A PPLY TO UPPER EXTREMITIES, 2 GM OF GEL TO AFFECTED AREA 4 TIMES DAILY. DO NOT APPLY MORE THAN 8 GM DAILY TO ANY ONE AFFECTED JOINT. DO Emilia Posada Start: 21-Nov-2017 Quantity: 1 100 GM Tube Refills: 3 FerrouSul 325 (65 Fe) MG Oral Tablet; TAKE 1 TABLET DAILY DIRECTED. Adela Start: 28-Sep-2016 Refills: 0 Fish Oil CAPS , M.D. Refills: 0 Atorvastatin Calcium 10 MG Oral Tablet; TAKE 1 TABLET DAILY AT BEDTIME. DO Emilia Posada Start: 21-Jan-2015 Quantity: 90 Refills: 3 Furosemide 40 MG Oral Tablet; TAKE 1 TAB LET IN THE MORNING AND 1 TABLET IN THE EVENING. DO Vince Webb Start: 21-Jan-2015 Refills: 0 Carvedilol 3.125 MG Oral Tablet; TAKE 1 TABLET TWICE D AILY WITH MEALS. DO Emilia Posada Start: 21-Jan-2015 Quantity: 60 Refills: 5 Gabapentin 600 MG Oral Tablet; TAKE 1 TABLET 3 TIMES D AILY. ARMANDO Bravo Start: 21-Jan-2015 Quantity: 90 Refills: 0 Ondansetron HCl - 4 MG Oral Tablet; TAKE 1 TABLET Every 6 hours PRN for nausea/vomiting DO Emilia Posada Start: 14-Jul-2016 Quantity: 20 Refills: 0 Procedures Procedures not documented Immunizations Influenza On: 20-May-2015 16:31 Lot #: [id number], [employer] Fluzone INJ On: 13-May-2016 16:32 Lot #: [id number], [employer] Prevnar 13 Intramuscular Suspension On: 13-May-2016 16:33 Lot #: [id number], [place] Fluzone Quadrivalent Intramuscular Suspension On: 22-Mar-2017 16:03 Lot #: [id number], [employer] Family History Mother Family history of Status: Active Family history of malignant neoplasm of uterus (V16.49) (Z80 .49) Status: Active Family history of chronic obstructive pulmonary disease (V17 .6) Status: Active (Z82.5) Family history of Ovarian cancer (183.0) (C56.9) Status: Act greer Father Family history of Status: Active Family history of chronic obstructive pulmonary disease (V17 .6) Status: Active (Z82.5) Unknown Family Member Family history of Ovarian cancer (183.0) Status: Active Comments: Family History (C56.9) Social History - Smoking Status Former smoker Plan of Treatment Planned Observations Planned Goals not documented Results No Known Results Results not documented Encounters Appointment; Emilia Posada DO 22-Mar-2017 15:00 Encounter Diagnosis: Problem not documented Appointment; Vince Webb DO 26-Nov-2016 11:00 Encounter Diagnosis: Problem not documented
[2018-11-15] MEDS ORDERED: SODIUM CHLORIDE 0.9% 1000ML 2,000 ML IV ONE (07:38)
[2018-11-15] MEDS ORDERED: DEXTROSE 50% 50 ML SYRINGE IV STA (07:59)
[2018-11-15] MEDS ORDERED: PIPERACILLIN/TAZOBACTAM 4.5 GM/120 ML BAG IV ONE (07:59)
[2018-11-15] MEDS ORDERED: PIPERACILL/TAZOBAC CONSULT ACTIVE PRN ×2 (07:59→12:30)
[2018-11-15] MEDS ORDERED: DEXTROSE 50% 50 ML SYRINGE IV ONE ×2 (08:00→10:54)
[2018-11-15 08:06] LABS: iSTAT Blood Urea Nitrogen 30 mg/dl (7-18); iSTAT Carbon Dioxide > 40 mEq/l (24-31); iSTAT Chloride 85 mEq/L (101-112); iSTAT Glucose 59 mg/dl (70-99); iSTAT Hematocrit 35 % (37-47); iSTAT Hemoglobin 11.9 g/dl (12.0-16.0); iSTAT Ionized Calcium 1.09 mmol/l (1.12-1.32); iSTAT Potassium 4.9 mEq/L (3.3-5.0); iSTAT Sodium 137 mEq/L (135-144)
--- NOTE | 2018-11-15 08:06 | XRay Report ---
XR chest 1V portable HISTORY: Sepsis COMPARISON: Chest 12/23/2017. FINDINGS: There are low lung volumes. No pneumothorax. No pleural effusions. The heart remains enlarg ed. Progressive interstitial and vascular thickening consistent with mild pulmonary edema. IMPRESSION: Cardiomegaly with mild interstitial pulmonary edema. This has progressed in the interval. Electronically signed by: Willy Gaffney M.D. 11/15/2018 8:05 AM
[2018-11-15 08:15] LABS: Base Excess VBG 13.9 mEq/L; HCO3 VBG 43 mmol/L; PCO2 VBG 84 mmHg (38-50); PO2 VBG 32 mmHg; pH VBG 7.33 (7.36-7.41)
[2018-11-15 08:17] LABS: Oxygen Saturation VBG < 60.0 %
[2018-11-15 08:30] LABS: INR 1.2 (0.9-1.1); Partial Thromboplastin Ratio 0.9; Partial Thromboplastin Time 23.7 Seconds (21.0-31.0)
[2018-11-15 08:32] LABS: Appearance Urine Turbid (Clear); Bacteria Urine Automated 1+ (Negative); Blood Urine 3+ (Negative); Color Urine Dark Yellow; Epithelial Cell Urine Auto >30 /lpf (0-5); Glucose Urine UA Negative (Negative); Ketones Urine Trace (Negative); Leukocyte Esterase Urine 3+ (Negative); Nitrite Urine Positive (Negative); Protein Urine 1+ (Negative); Specific Gravity Urine 1.024 (1.000-1.030); Urobilinogen Urine Positive (Negative); WBC Urine Automated >30 /hpf (0-5)
[2018-11-15 08:41] LABS: Albumin Globulin Ratio 0.7 (0.9-2); BUN Creatinine Ratio 15.9 (10-20); Bilirubin,Total 0.9 mg/dl (0.2-1); C Reactive Protein 4.74 mg/dl (0-0.29); Calcium 9.1 mg/dl (8.5-10.1); Creatinine Clr Calc Pharmacy 55.6 ml/min; Est GFR (African American) 32.6; Est GFR (Non-African American) 28.1; Hematocrit (blood only) 35.8 % (37-47); Hemoglobin 10.2 g/dL (12.0-16.0); Magnesium 1.8 mg/dl (1.8-2.4); Mean Corpuscular Hgb Conc 28.5 g/dL (32-36); Mean Corpuscular Volume 88.8 fL (80-100); Mean Platelet Volume 9.4 fL (7.4-10.4); Platelet Count 277 K/uL (130-400); Potassium 4.8 mmol/L (3.5-5.1); RDW Coefficient of Variation 16.3 % (11.5-14.5); RDW Standard Deviation 52.8 fL (36.4-46.3); Red Blood Count 4.03 M/uL (4.2-5.4); Troponin I 0.199 ng/ml (0-0.045); White Blood Count 13.16 K/uL (4.8-10.8)
--- NOTE | 2018-11-15 08:51 | CT Scan Report ---
CT SCAN OF THE ABDOMEN AND PELVIS WITHOUT IV CONTRAST CLINICAL HISTORY: Urinary tract infection. Elevated serum creatinine. COMPARISON STUDY: Pelvic ultrasound dated 11/21/2015. TECHNIQUE: CT scan of the abdomen and pelvis is performed from the lung bases to the proximal femora. Images are reviewed in the axial, sagittal, and coronal planes. IV contrast was not administered for this examination due to poor renal function. A dose lowering technique was utilized adhering to the principles of ALARA. The examination is significantly degraded by large body habitus, and by streak a rtifact from the body wall abutting the CT gantry. CT DOSE: 2114.20 mGy.cm FINDINGS: Lung bases: The heart is top normal in size and without pericardial effusion. There are trace pleural effusions with bibasilar atelectasis. There is a tiny hiatal hernia. Liver: The unenhanced liver is markedly enlarged, measuring 31.2 cm in length. The liver is otherwise normal in contour and attenuation. There is no intrahepatic biliary ductal dilatation. Gallbladder: The gallbladder is distended but otherwise normal as imaged. Evaluation of the gallbladd er is significantly degraded by streak artifact. Spleen: The spleen is enlarged, measuring 15.8 cm in length. Pancreas: The unenhanced pancreas is atrophic and grossly unremarkable. Adrenal glands: Unremarkable. Kidneys: The unenhanced kidneys demonstrate cortical atrophy and are without hydronephrosis. There ar e no renal calculi identified. There is no evidence of contour deforming renal mass lesion. Abdominal vasculature: The abdominal aorta is normal in course and caliber noting mild atheroscleroti c calcification. Bowel: There is moderate constipation. No bowel obstruction is identified. There is laxity of the susie tral abdominal wall with diastases of the rectus musculature and protrusion of abdominal contents. Th e appendix is normal as imaged. Peritoneum: There is no intraperitoneal free air or abdominal ascites. There is evidence of previous ventral hernia repair. Lymphadenopathy: None. Pelvic viscera: The bladder is decompressed around a Garcia catheter and not well evaluated. Small foc i of intraluminal gas are noted. Pericystic stranding suggested. The uterus and adnexa are normal as imaged. Skeletal structures: The skeletal structures are osteopenic. There is moderate to advanced lumbar sac ral spondylosis. Advanced arthritic change is seen in the hips. No lytic or blastic lesions are seen. Soft tissues: There is mild body wall edema. IMPRESSION: 1. The examination is significantly degraded by large body habitus and streak artifact from the body wall abutting the CT gantry. 2. Although the bladder is decompressed and a Garcia catheter, the imaging findings suggest cystitis. Correlation with clinical findings and urinalysis will be required. 3. Trace pleural effusions with bibasilar atelectasis. 4. Moderate constipation. 5. Marked hepatomegaly. 6. Splenomegaly. 7. Additional findings as above. Electronically signed by: Johnny Walker M.D. 11/15/2018 8:50 AM
[2018-11-15 08:52] LABS: Bilirubin Urine 1+ (Negative)
[2018-11-15 08:54] LABS: Ictotest Urine Positive (Negative)
[2018-11-15 09:01] LABS: RBC Urine Automated >30 /hpf (0-4)
--- NOTE | 2018-11-15 09:06 | Emergency Department Note ---
Entered by Jacqueline Luciano acting as a scribe for Hang Hale DO History of Present Illness General Chief complaint: Lethargic Time Seen by Provider: 11/15/18 07:32 Source: patient and EMS History of Present Illness Provider complaint: lethargy Onset (ago): hour(s) (this morning) Location: left and right Pain Consistency: + constant Quality: + other (lethargic ) Treatments prior to arrival: other (600 fluid) The patient is a 63 year old female who presents to the Emergency Department with complaints of lethargy this morning. The patient states that she gets UTIs frequently and states that she was started on an antibiotic for a UTI. She states that her abdomen does not feel more distended than usual. Per EMS, the patient's systolic blood pressure went from 118 to 80 to 50 as the patient was moved from her bed to the EMS bed. EMS states that the patient was given 600 ml of fluid. EMS states that the patient has bilateral leg cellulitis and had hematuria in her Garcia catheter. EMS states that the patient's BSG was 79. EMS states that the patient is on 3L of Oxygen at home. Home Medications Home Medications Medication Instructions Recorded Confirmed Type atorvastatin [Lipitor] 10 mg PO HS 11/15/18 11/15/18 History betamethasone dipropionate 1 applic TOPICAL BID 11/15/18 11/15/18 History carvedilol 3.125 mg PO BID 11/15/18 11/15/18 History cholecalciferol (vitamin D3) 5,000 unit PO 3XWK 11/15/18 11/15/18 History [Vitamin D3] cyanocobalamin (vitamin B-12) 1,000 mcg IM Q30D 11/15/18 11/15/18 History diclofenac sodium 2 g TOPICAL QID PRN 11/15/18 11/15/18 History diphenhydramine HCl [Benadryl] 25 mg PO Q6H 11/15/18 11/15/18 History docusate sodium 100 mg PO BID 11/15/18 11/15/18 History ferrous sulfate 325 mg PO DAILY 11/15/18 11/15/18 History fluticasone propion-salmeterol 1 inh INHALATION BID 11/15/18 11/15/18 History [Advair Diskus] furosemide [Lasix] 40 mg PO BID 11/15/18 11/15/18 History gabapentin 100 mg PO TID 11/15/18 11/15/18 History gabapentin 600 mg PO TID 11/15/18 11/15/18 History insulin regular hum U-500 conc 0 unit SUBCUT DAILY 11/15/18 11/15/18 History [Humulin R U-500 (Conc) Insulin] ketoconazole 1 applic TOPICAL DAILY 11/15/18 11/15/18 History linaclotide [Linzess] 145 mcg PO DAILY 11/15/18 11/15/18 History metformin 850 mg PO TID 11/15/18 11/15/18 History naproxen 500 mg PO BID 11/15/18 11/15/18 History nitrofurantoin macrocrystal 50 mg PO HS 11/15/18 11/15/18 History nortriptyline 10 mg PO TID 11/15/18 11/15/18 History nystatin 1 applic TOPICAL PM 11/15/18 11/15/18 History omega 8-fkd-odn-fish oil [[place]-3 1 cap PO BID 11/15/18 11/15/18 History Fish Oil] omeprazole magnesium [Prilosec OTC] 20 mg PO DAILY 11/15/18 11/15/18 History ondansetron HCl [Zofran] 4 mg PO Q6H PRN 11/15/18 11/15/18 History oxycodone 20 mg PO Q6H 11/15/18 11/15/18 History penicillin V potassium 500 mg PO QID 11/15/18 11/15/18 History tiotropium bromide [Spiriva with 1 cap INHALATION DAILY 11/15/18 11/15/18 History HandiHaler] Allergies Allergy/AdvReac Type Severity Reaction Status Date / Time No Known Allergies Allergy Unverified 11/15/18 08:22 Past Med/Surg History Medical History COPD (chronic obstructive pulmonary disease) (Chronic) Chronic indwelling Garcia catheter (Chronic) Chronic respiratory failure with hypoxia and hypercapnia (Chronic) on home o2, 3 L continuously DM II (diabetes mellitus, type II), controlled (Chronic) HLD (hyperlipidemia) (Chronic) HTN (hypertension) (Chronic) Obesity hypoventilation syndrome (Chronic) Psoriasis (Chronic) Chronic pain syndrome 2nd to OA of knees; takes chronic opiates Morbid obesity with BMI of 60.0-69.9, adult Recurrent UTI (urinary tract infection) Surgical history unknown Social History Preferred Language: [place] Communication Ability: Effective 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 Oil 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 Required: No Beliefs That Will Affect Care: None marital status details: Current Living Situation: Spouse Current Living Situation Comment: lives in [place] 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 and A total of 10 systems reviewed and were otherwise negative Physical Exam Vital Signs Vital Signs - 24 hr 11/15/18 07:34 11/15/18 07:36 11/15/18 07:52 Temperature 37.1 C Temperature Source Oral Sepsis Recent Fever Within 48 Hours No Sepsis New/Unexplained Change in Mental Status Yes Sepsis Action Taken by Nursing Physician Notified Pulse Rate 82 81 Pulse Rate [Radial] Pulse Rate from SpO2 Sensor Respiratory Rate 24 Respiratory Effort / Characteristics Respiratory Depth Respiratory Pattern Blood Pressure 67/49 L 67/49 L Blood Pressure [Right Arm] Blood Pressure Mean 55 55 Blood Pressure Mean [Right Arm] Blood Pressure Position [Right Arm] Pulse Oximetry 92 92 Oxygen Delivery Method Nasal Cannula Nasal Cannula Oxygen Flow Rate 6 6 Fraction of Inspired Oxygen 11/15/18 07:53 11/15/18 07:54 11/15/18 08:01 Temperature Temperature Source Sepsis Recent Fever Within 48 Hours Sepsis New/Unexplained Change in Mental Status Sepsis Action Taken by Nursing Pulse Rate 79 Pulse Rate [Radial] Pulse Rate from SpO2 Sensor 80 78 Respiratory Rate Respiratory Effort / Characteristics Respiratory Depth Respiratory Pattern Blood Pressure 58/44 L 99/54 L Blood Pressure [Right Arm] Blood Pressure Mean 48 69 Blood Pressure Mean [Right Arm] Blood Pressure Position [Right Arm] Pulse Oximetry 92 91 90 Oxygen Delivery Method Nasal Cannula Oxygen Flow Rate 6 Fraction of Inspired Oxygen 11/15/18 08:07 11/15/18 08:11 11/15/18 08:16 Temperature Temperature Source Sepsis Recent Fever Within 48 Hours Sepsis New/Unexplained Change in Mental Status Sepsis Action Taken by Nursing Pulse Rate 78 77 80 Pulse Rate [Radial] Pulse Rate from SpO2 Sensor 78 77 80 Respiratory Rate Respiratory Effort / Characteristics Respiratory Depth Respiratory Pattern Blood Pressure 96/67 L 101/69 113/58 L Blood Pressure [Right Arm] Blood Pressure Mean 76 79 76 Blood Pressure Mean [Right Arm] Blood Pressure Position [Right Arm] Pulse Oximetry 92 92 93 Oxygen Delivery Method Oxygen Flow Rate Fraction of Inspired Oxygen 11/15/18 08:42 11/15/18 08:46 11/15/18 09:01 Temperature Temperature Source Sepsis Recent Fever Within 48 Hours Sepsis New/Unexplained Change in Mental Status Sepsis Action Taken by Nursing Pulse Rate 76 74 75 Pulse Rate [Radial] Pulse Rate from SpO2 Sensor 76 74 75 Respiratory Rate Respiratory Effort / Characteristics Respiratory Depth Respiratory Pattern Blood Pressure 115/57 L 123/56 L 99/66 L Blood Pressure [Right Arm] Blood Pressure Mean 76 78 77 Blood Pressure Mean [Right Arm] Blood Pressure Position [Right Arm] Pulse Oximetry 96 94 96 Oxygen Delivery Method Oxygen Flow Rate 2 2 6 Fraction of Inspired Oxygen 11/15/18 09:16 11/15/18 09:30 11/15/18 09:31 Temperature Temperature Source Sepsis Recent Fever Within 48 Hours Sepsis New/Unexplained Change in Mental Status Sepsis Action Taken by Nursing Pulse Rate 78 77 76 Pulse Rate [Radial] Pulse Rate from SpO2 Sensor 77 77 Respiratory Rate 25 H Respiratory Effort / Characteristics Spontaneous Respiratory Depth Normal Respiratory Pattern Regular Blood Pressure 120/61 125/76 Blood Pressure [Right Arm] Blood Pressure Mean 80 92 Blood Pressure Mean [Right Arm] Blood Pressure Position [Right Arm] Pulse Oximetry 99 99 97 Oxygen Delivery Method Oxygen Flow Rate 6 6 Fraction of Inspired Oxygen 35 11/15/18 09:40 11/15/18 09:47 11/15/18 10:05 Temperature Temperature Source Sepsis Recent Fever Within 48 Hours Sepsis New/Unexplained Change in Mental Status Sepsis Action Taken by Nursing Pulse Rate 74 77 Pulse Rate [Radial] Pulse Rate from SpO2 Sensor 76 77 Respiratory Rate Respiratory Effort / Characteristics Spontaneous Respiratory Depth Shallow Respiratory Pattern Regular Blood Pressure 110/67 119/57 L Blood Pressure [Right Arm] Blood Pressure Mean 81 77 Blood Pressure Mean [Right Arm] Blood Pressure Position [Right Arm] Pulse Oximetry 93 95 Oxygen Delivery Method Nasal Cannula Oxygen Flow Rate 6 Fraction of Inspired Oxygen 11/15/18 10:16 11/15/18 10:20 11/15/18 10:55 Temperature Temperature Source Sepsis Recent Fever Within 48 Hours Sepsis New/Unexplained Change in Mental Status Sepsis Action Taken by Nursing Pulse Rate 75 74 76 Pulse Rate [Radial] Pulse Rate from SpO2 Sensor 75 74 Respiratory Rate 18 Respiratory Effort / Characteristics Non-Labored Spontaneous Respiratory Depth Normal Respiratory Pattern Regular Blood Pressure 92/73 L 127/72 Blood Pressure [Right Arm] Blood Pressure Mean 79 90 Blood Pressure Mean [Right Arm] Blood Pressure Position [Right Arm] Pulse Oximetry 98 94 83 L Oxygen Delivery Method Oxygen Flow Rate Fraction of Inspired Oxygen 30 11/15/18 11:08 11/15/18 11:14 11/15/18 14:33 Temperature 36.5 C Temperature Source Oral Sepsis Recent Fever Within 48 Hours Sepsis New/Unexplained Change in Mental Status Sepsis Action Taken by Nursing Pulse Rate 73 79 Pulse Rate [Radial] Pulse Rate from SpO2 Sensor Respiratory Rate 23 13 Respiratory Effort / Characteristics Non-Labored Spontaneous Non-Labored Spontaneous Respiratory Depth Normal Normal Respiratory Pattern Regular Regular Blood Pressure Blood Pressure [Right Arm] Blood Pressure Mean Blood Pressure Mean [Right Arm] Blood Pressure Position [Right Arm] Pulse Oximetry 100 100 99 Oxygen Delivery Method BiPAP Oxygen Flow Rate Fraction of Inspired Oxygen 40 40 11/15/18 15:29 11/15/18 19:26 11/15/18 20:00 Temperature 36.7 C 36.5 C Temperature Source Oral Oral Sepsis Recent Fever Within 48 Hours Sepsis New/Unexplained Change in Mental Status Sepsis Action Taken by Nursing Pulse Rate Pulse Rate [Radial] 76 78 Pulse Rate from SpO2 Sensor Respiratory Rate 24 18 Respiratory Effort / Characteristics Non-Labored Spontaneous SOB on Exertion Respiratory Depth Normal Respiratory Pattern Regular Blood Pressure Blood Pressure [Right Arm] 116/63 115/63 Blood Pressure Mean Blood Pressure Mean [Right Arm] 80 80 Blood Pressure Position [Right Arm] Lying Lying Pulse Oximetry 99 92 Oxygen Delivery Method BiPAP Nasal Cannula BiPAP Oxygen Flow Rate 3 Fraction of Inspired Oxygen 11/15/18 21:56 11/15/18 23:06 11/15/18 23:15 Temperature 37.0 C Temperature Source Axillary Sepsis Recent Fever Within 48 Hours Sepsis New/Unexplained Change in Mental Status Sepsis Action Taken by Nursing Pulse Rate 80 69 Pulse Rate [Radial] 69 Pulse Rate from SpO2 Sensor Respiratory Rate 18 15 20 Respiratory Effort / Characteristics Spontaneous Spontaneous Respiratory Depth Normal Normal Normal Respiratory Pattern Regular Regular Blood Pressure Blood Pressure [Right Arm] 130/53 L Blood Pressure Mean Blood Pressure Mean [Right Arm] 78 Blood Pressure Position [Right Arm] Lying Pulse Oximetry 99 100 99 Oxygen Delivery Method BiPAP Oxygen Flow Rate Fraction of Inspired Oxygen 40 40 11/15/18 23:59 11/16/18 03:09 Temperature 37.2 C Temperature Source Oral Sepsis Recent Fever Within 48 Hours Sepsis New/Unexplained Change in Mental Status Sepsis Action Taken by Nursing Pulse Rate 72 Pulse Rate [Radial] 74 Pulse Rate from SpO2 Sensor Respiratory Rate 20 Respiratory Effort / Characteristics Respiratory Depth Normal Respiratory Pattern Blood Pressure Blood Pressure [Right Arm] 153/53 H Blood Pressure Mean Blood Pressure Mean [Right Arm] 86 Blood Pressure Position [Right Arm] Lying Pulse Oximetry 95 Oxygen Delivery Method Nasal Cannula Oxygen Flow Rate 3.0 Fraction of Inspired Oxygen GENERAL: Patient is listless but responds to verbal commands. Falls asleep easily. EYES: The conjunctivae are clear. The pupils are round and reactive. EARS, NOSE, MOUTH AND THROAT: The nose is without any evidence of any deformity. Mucous membranes are moist.Tongue is midline NECK: The neck is nontender and supple. RESPIRATORY: Normal respiratory effort is noted. There is no evidence of wheezing rhonchi or rales to auscultation. CARDIOVASCULAR: Regular rate and rhythm noted. There no murmurs rubs or gallops normal S1 normal S2 GASTROINTESTINAL: The abdomen is obese and distended. There was no tenderness, guarding, or rigidity. MUSCULOSKELETAL/EXTREMITIES: There is no evidence of gross deformity. Full range of motion is noted in the hips and shoulders. SKIN: There is pedal edema bilaterally. Skin was warm and dry. NEUROLOGIC: Patient is oriented to person and place. Strength was symmetric. Course 0732: The patient was evaluated in room B1. A history and physical were performed. 0836: I reevaluated the patient. 0850: I discussed the patient's case with Dr. Amy Hassan who will evaluate the patient for further management. 0900: I updated the patient who verbalized agreement and understanding of the treatment plan. 0928: Dr. Gisell Hassan is evaluating the patient. Consultations Consultation #1: Dr. Amy Hassan Time: 08:50 Administered Medications Heparin Sodium (Porcine) (Heparin Sodium (Porcine)) 5,000 units SQ Q8 [facility] Stop: 12/15/18 13:59 Last Admin: 11/16/18 05:49 Dose: 5,000 units Documented by: [id number] Cosigned by: [id number] Admin: 11/15/18 22:13 Dose: 5,000 units Documented by: [id number] Cosigned by: [id number] Admin: 11/15/18 15:06 Dose: 5,000 units Documented by: [id number] Cosigned by: [id number] Dextrose/Sodium Chloride (D5w And Nss) 1,000 mls @ 80 mls/hr IV .[id number] [facility] Stop: 12/15/18 12:29 Last Admin: 11/16/18 00:42 Dose: Not Given Documented by: [id number] Admin: 11/15/18 23:00 Dose: 80 mls/hr Documented by: [id number] Infusion: 11/15/18 19:44 Dose: 150 mls/hr Documented by: [id number] Admin: 11/15/18 13:03 Dose: 150 mls/hr Documented by: [id number] Ranitidine HCl 50 mg/ Dextrose 102 mls @ 200 mls/hr IV Q8H [facility] Stop: 12/15/18 13:59 Last Admin: 11/16/18 05:47 Dose: 200 mls/hr Documented by: [id number] Infusion: 11/16/18 00:41 Dose: 0 mls/hr Documented by: [id number] Admin: 11/15/18 22:15 Dose: 200 mls/hr Documented by: [id number] Infusion: 11/15/18 15:34 Dose: 0 mls/hr Documented by: [id number] Admin: 11/15/18 15:01 Dose: 200 mls/hr Documented by: [id number] Piperacillin Sod/Tazobactam (Sod 4.5 gm/ Dextrose) 120 mls @ 30 mls/hr IV Q8H [facility]; Protocol Stop: 11/25/18 13:59 Last Admin: 11/16/18 05:48 Dose: 30 mls/hr Documented by: [id number] Infusion: 11/16/18 02:20 Dose: 0 mls/hr Documented by: [id number] Admin: 11/15/18 22:15 Dose: 30 mls/hr Documented by: [id number] Infusion: 11/15/18 19:31 Dose: 0 mls/hr Documented by: [id number] Admin: 11/15/18 15:01 Dose: 30 mls/hr Documented by: [id number] Insulin Aspart (Novolog Flexpen) 0 units SC Q6 [facility] Stop: 12/15/18 23:58 Last Admin: 11/16/18 05:49 Dose: 7 units Documented by: [id number] Cosigned by: [id number] Admin: 11/16/18 00:37 Dose: 5 units Documented by: [id number] Cosigned by: [id number] Lactic Acid (Amlactin) 1 gm EXT BID [facility] Stop: 12/15/18 11:14 Last Admin: 11/15/18 22:14 Dose: 1 gm Documented by: [id number] Admin: 11/15/18 13:03 Dose: 1 gm Documented by: [id number] Miscellaneous (Order Awaiting Action) 1 ea N/A QS [facility] Stop: 12/15/18 15:59 Last Admin: 11/16/18 00:42 Dose: Not Given Documented by: [id number] Admin: 11/15/18 15:35 Dose: Not Given Documented by: [id number] Miscellaneous (Order Awaiting Action) 1 ea N/A QS [facility] Stop: 12/15/18 15:59 Last Admin: 11/16/18 00:42 Dose: Not Given Documented by: [id number] Admin: 11/15/18 15:35 Dose: Not Given Documented by: [id number] Morphine Sulfate (Morphine Sulfate) 2 mg IV Q4H PRN PRN Reason: Pain Stop: 11/29/18 21:00 Last Admin: 11/16/18 05:48 Dose: 2 mg Documented by: [id number] Nystatin (Mycostatin) 1 appln EXT TID [facility] Stop: 12/15/18 13:59 Last Admin: 11/15/18 22:14 Dose: 1 appln Documented by: [id number] Admin: 11/15/18 15:00 Dose: 1 appln Documented by: [id number] Fluticasone/Salmeterol (Advair Diskus 250/50) 1 puffs INH BID [facility] Stop: 12/15/18 20:59 Last Admin: 11/15/18 22:14 Dose: 1 puffs Documented by: [id number] Discontinued Medications Lactulose 200 gm/ Sterile Water 700 ml/ BARCODE IDENTIFIER 1 ea 0 gm RI NOW STA Stop: 11/15/18 16:00 Last Admin: 11/15/18 19:30 Dose: 200 gm Documented by: [id number] Dextrose (Dextrose 50%) 25 ml IV NOW STA Stop: 11/15/18 08:00 Last Admin: 11/15/18 08:03 Dose: Not Given Documented by: [id number] Dextrose (Dextrose 50%) Confirm Administered Dose 50 ml IV .STK-MED ONE Stop: 11/15/18 08:01 Last Admin: 11/15/18 08:02 Dose: 25 ml Documented by: [id number] Dextrose (Dextrose 50%) Confirm Administered Dose 50 ml IV .STK-MED ONE Stop: 11/15/18 10:55 Last Admin: 11/15/18 10:58 Dose: 50 ml Documented by: [id number] Sodium Chloride (Nss 1000ml) 2,000 mls @ 999 mls/hr IV .Q2H1M ONE Stop: 11/15/18 09:38 Last Infusion: 11/15/18 09:39 Dose: 0 mls/hr Documented by: [id number] Admin: 11/15/18 07:38 Dose: 999 mls/hr Documented by: [id number] Piperacillin Sod/Tazobactam Sod (Zosyn) 4.5 gm in 120 mls @ 240 mls/hr IV NOW ONE Stop: 11/15/18 08:28 Last Infusion: 11/15/18 08:39 Dose: 0 mls/hr Documented by: [id number] Admin: 11/15/18 08:09 Dose: 240 mls/hr Documented by: [id number] Sodium Chloride (Nss 1000ml) 1,000 mls @ 150 mls/hr IV .Q6H40M [facility] Stop: 12/15/18 10:02 Last Infusion: 11/15/18 19:31 Dose: 0 mls/hr Documented by: [id number] Infusion: 11/15/18 16:06 Dose: 0 mls/hr Documented by: [id number] Infusion: 11/15/18 16:05 Dose: 0 mls/hr Documented by: [id number] Admin: 11/15/18 10:15 Dose: 150 mls/hr Documented by: [id number] Sodium Chloride (Nss 1000ml) 1,000 mls @ 999 mls/hr IV .Q1H1M ONE Stop: 11/15/18 11:16 Last Infusion: 11/15/18 12:40 Dose: 0 mls/hr Documented by: [id number] Admin: 11/15/18 10:18 Dose: 999 mls/hr Documented by: [id number] Medical Decision Making Differential Diagnosis Differential includes acute coronary syndrome, myocardial infarction, CVA, TIA, anemia, infection, pneumonia, UTI, pyelonephritis, poor nutrition, dehydration, electrolyte disturbance,hypoglycemia. Medical Records Attestation: I reviewed the patient's medical records. Home Medications Current Medication List: was personally reviewed by me Laboratory Data Attestation: I reviewed the patient's lab results. Result diagrams: 11/15/18 07:50 11/15/18 19:44 Lab Results 11/15/18 11/15/18 11/15/18 Range/Units 07:50 07:50 07:50 WBC 13.16 H (4.8-10.8) K/uL RBC 4.03 L (4.2-5.4) M/uL Hgb 10.2 L (12.0-16.0) g/dL POC Hgb (12.0-16.0) g/dl Hct 35.8 L (37-47) % POC Hct (37-47) % MCV 88.8 (80-100) fL MCH 25.3 (25-34) pg MCHC 28.5 L (32-36) g/dL RDW Std Deviation 52.8 H (36.4-46.3) fL RDW Coeff of Tamra 16.3 H (11.5-14.5) % Plt Count 277 (130-400) K/uL MPV 9.4 (7.4-10.4) fL Immature Gran % (Auto) 1.2 % Neut % (Auto) 81.6 % Lymph % (Auto) 7.8 % Moca % (Auto) 9.0 % Eos % (Auto) 0.2 % Baso % (Auto) 0.2 % Immature Gran # (Auto) 0.16 H (0.00-0.02) K/uL Neut # (Auto) 10.74 H (1.4-6.5) K/uL Lymph # (Auto) 1.02 L (1.2-3.4) K/uL Moca # (Auto) 1.18 H (0.11-0.59) K/uL Eos # (Auto) 0.03 (0-0.5) K/uL Baso # (Auto) 0.03 (0-0.2) K/uL ESR 85 H (0-21) mm/hr PT (9.0-12.0) Seconds INR (0.9-1.1) APTT (21.0-31.0) Seconds PTT Ratio VBG pH (7.36-7.41) VBG pCO2 (38-50) mmHg VBG pO2 mmHg VBG HCO3 mmol/L VBG O2 Saturation % VBG Base Excess mEq/L Barometric Pressure mm/Hg POC Sodium (135-144) mEq/L Sodium (136-145) mmol/L POC Potassium (3.3-5.0) mEq/L Potassium (3.5-5.1) mmol/L POC Chloride (101-112) mEq/L Chloride (98-107) mmol/L Carbon Dioxide (21-32) mmol/L POC Total CO2 (24-31) mEq/l Anion Gap (3-11) POC Anion Gap (16-25) mmol/L POC BUN (7-18) mg/dl BUN (7-18) mg/dl Creatinine (0.6-1.2) mg/dl POC Creatinine (0.6-1.3) mg/dl Est Cr Clr Drug Dosing ml/min Est GFR ( Amer) Est GFR (Non-Af Amer) BUN/Creatinine Ratio (10-20) Glucose (70-99) mg/dl POC Glucose (70-99) POC Glucose (other) (70-99) mg/dl Lactate (0.4-2.0) mmol/L Calcium (8.5-10.1) mg/dl POC Ioniz Calcium Esau (1.12-1.32) mmol/l Magnesium (1.8-2.4) mg/dl Total Bilirubin (0.2-1) mg/dl Direct Bilirubin (0-0.2) mg/dl AST (15-37) U/L ALT (12-78) U/L Alkaline Phosphatase (45-117) U/L Ammonia (11-32) umol/L Total Creatine Kinase (26-192) U/L CK-MB (CK-2) (0.5-3.6) ng/ml CK/CKMB % Calc Troponin I (0-0.045) ng/ml C-Reactive Protein (0-0.29) mg/dl Total Protein (6.4-8.2) gm/dl Albumin (3.4-5.0) gm/dl Globulin (2.5-4.0) gm/dl Albumin/Globulin Ratio (0.9-2) Lipase (73-393) U/L Procalcitonin 0.30 (0-0.5) ng/ml Urine Color Urine Appearance (Clear) Urine pH (4.5-7.5) Ur Specific [place] (1.000-1.030) Urine Protein (Negative) Urine Glucose (UA) (Negative) Urine Ketones (Negative) Urine Blood (Negative) Urine Nitrite (Negative) Urine Bilirubin (Negative) Urine Urobilinogen (Negative) Ur Leukocyte Esterase (Negative) Urine WBC (Auto) (0-5) /hpf Urine RBC (Auto) (0-4) /hpf U Hyaline Cast (Auto) (0-5) /lpf U Epithel Cells (Auto) (0-5) /lpf Urine Bacteria (Auto) (Negative) Granular Casts (0) /lpf Urine Yeast Hepatitis A IgM Ab (NON-REACTIVE) Hep Bs Antigen (Neg) Hep B Core IgM Ab (NON-REACTIVE) Hepatitis C Antibody (Neg) 11/15/18 11/15/18 11/15/18 Range/Units 07:50 07:50 07:50 WBC (4.8-10.8) K/uL RBC (4.2-5.4) M/uL Hgb (12.0-16.0) g/dL POC Hgb (12.0-16.0) g/dl Hct (37-47) % POC Hct (37-47) % MCV (80-100) fL MCH (25-34) pg MCHC (32-36) g/dL RDW Std Deviation (36.4-46.3) fL RDW Coeff of Tamra (11.5-14.5) % Plt Count (130-400) K/uL MPV (7.4-10.4) fL Immature Gran % (Auto) % Neut % (Auto) % Lymph % (Auto) % Moca % (Auto) % Eos % (Auto) % Baso % (Auto) % Immature Gran # (Auto) (0.00-0.02) K/uL Neut # (Auto) (1.4-6.5) K/uL Lymph # (Auto) (1.2-3.4) K/uL Moca # (Auto) (0.11-0.59) K/uL Eos # (Auto) (0-0.5) K/uL Baso # (Auto) (0-0.2) K/uL ESR (0-21) mm/hr PT 12.0 (9.0-12.0) Seconds INR 1.2 H (0.9-1.1) APTT 23.7 (21.0-31.0) Seconds PTT Ratio 0.9 VBG pH (7.36-7.41) VBG pCO2 (38-50) mmHg VBG pO2 mmHg VBG HCO3 mmol/L VBG O2 Saturation % VBG Base Excess mEq/L Barometric Pressure mm/Hg POC Sodium (135-144) mEq/L Sodium 137 (136-145) mmol/L POC Potassium (3.3-5.0) mEq/L Potassium 4.8 (3.5-5.1) mmol/L POC Chloride (101-112) mEq/L Chloride 92 L (98-107) mmol/L Carbon Dioxide 42 H* (21-32) mmol/L POC Total CO2 (24-31) mEq/l Anion Gap 5.0 (3-11) POC Anion Gap (16-25) mmol/L POC BUN (7-18) mg/dl BUN 30 H (7-18) mg/dl Creatinine 1.88 H (0.6-1.2) mg/dl POC Creatinine (0.6-1.3) mg/dl Est Cr Clr Drug Dosing 55.6 ml/min Est GFR ( Amer) 32.6 Est GFR (Non-Af Amer) 28.1 BUN/Creatinine Ratio 15.9 (10-20) Glucose 54 L (70-99) mg/dl POC Glucose (70-99) POC Glucose (other) (70-99) mg/dl Lactate 2.2 H* (0.4-2.0) mmol/L Calcium 9.1 (8.5-10.1) mg/dl POC Ioniz Calcium Esau (1.12-1.32) mmol/l Magnesium 1.8 (1.8-2.4) mg/dl Total Bilirubin 0.9 (0.2-1) mg/dl Direct Bilirubin (0-0.2) mg/dl AST 1259 H (15-37) U/L ALT 702 H (12-78) U/L Alkaline Phosphatase 70 (45-117) U/L Ammonia (11-32) umol/L Total Creatine Kinase (26-192) U/L CK-MB (CK-2) (0.5-3.6) ng/ml CK/CKMB % Calc Troponin I 0.199 H* (0-0.045) ng/ml C-Reactive Protein 4.74 H (0-0.29) mg/dl Total Protein 7.0 (6.4-8.2) gm/dl Albumin 3.0 L (3.4-5.0) gm/dl Globulin 4.0 (2.5-4.0) gm/dl Albumin/Globulin Ratio 0.7 L (0.9-2) Lipase 24 L (73-393) U/L Procalcitonin (0-0.5) ng/ml Urine Color Urine Appearance (Clear) Urine pH (4.5-7.5) Ur Specific [place] (1.000-1.030) Urine Protein (Negative) Urine Glucose (UA) (Negative) Urine Ketones (Negative) Urine Blood (Negative) Urine Nitrite (Negative) Urine Bilirubin (Negative) Urine Urobilinogen (Negative) Ur Leukocyte Esterase (Negative) Urine WBC (Auto) (0-5) /hpf Urine RBC (Auto) (0-4) /hpf U Hyaline Cast (Auto) (0-5) /lpf U Epithel Cells (Auto) (0-5) /lpf Urine Bacteria (Auto) (Negative) Granular Casts (0) /lpf Urine Yeast Hepatitis A IgM Ab (NON-REACTIVE) Hep Bs Antigen (Neg) Hep B Core IgM Ab (NON-REACTIVE) Hepatitis C Antibody (Neg) 11/15/18 11/15/18 11/15/18 Range/Units 07:50 07:50 07:51 WBC (4.8-10.8) K/uL RBC (4.2-5.4) M/uL Hgb (12.0-16.0) g/dL POC Hgb 11.9 L (12.0-16.0) g/dl Hct (37-47) % POC Hct 35 L (37-47) % MCV (80-100) fL MCH (25-34) pg MCHC (32-36) g/dL RDW Std Deviation (36.4-46.3) fL RDW Coeff of Tamra (11.5-14.5) % Plt Count (130-400) K/uL MPV (7.4-10.4) fL Immature Gran % (Auto) % Neut % (Auto) % Lymph % (Auto) % Moca % (Auto) % Eos % (Auto) % Baso % (Auto) % Immature Gran # (Auto) (0.00-0.02) K/uL Neut # (Auto) (1.4-6.5) K/uL Lymph # (Auto) (1.2-3.4) K/uL Moca # (Auto) (0.11-0.59) K/uL Eos # (Auto) (0-0.5) K/uL Baso # (Auto) (0-0.2) K/uL ESR (0-21) mm/hr PT (9.0-12.0) Seconds INR (0.9-1.1) APTT (21.0-31.0) Seconds PTT Ratio VBG pH 7.33 L (7.36-7.41) VBG pCO2 84 H (38-50) mmHg VBG pO2 32 mmHg VBG HCO3 43 mmol/L VBG O2 Saturation < 60.0 % VBG Base Excess 13.9 mEq/L Barometric Pressure 739.0 mm/Hg POC Sodium 137 (135-144) mEq/L Sodium (136-145) mmol/L POC Potassium 4.9 (3.3-5.0) mEq/L Potassium (3.5-5.1) mmol/L POC Chloride 85 L (101-112) mEq/L Chloride (98-107) mmol/L Carbon Dioxide (21-32) mmol/L POC Total CO2 > 40 H* (24-31) mEq/l Anion Gap (3-11) POC Anion Gap 15.0 L (16-25) mmol/L POC BUN 30 H (7-18) mg/dl BUN (7-18) mg/dl Creatinine (0.6-1.2) mg/dl POC Creatinine 2.0 H (0.6-1.3) mg/dl Est Cr Clr Drug Dosing ml/min Est GFR ( Amer) Est GFR (Non-Af Amer) BUN/Creatinine Ratio (10-20) Glucose (70-99) mg/dl POC Glucose (70-99) POC Glucose (other) 59 L* (70-99) mg/dl Lactate (0.4-2.0) mmol/L Calcium (8.5-10.1) mg/dl POC Ioniz Calcium Esau 1.09 L (1.12-1.32) mmol/l Magnesium (1.8-2.4) mg/dl Total Bilirubin (0.2-1) mg/dl Direct Bilirubin (0-0.2) mg/dl AST (15-37) U/L ALT (12-78) U/L Alkaline Phosphatase (45-117) U/L Ammonia (11-32) umol/L Total Creatine Kinase 30 (26-192) U/L CK-MB (CK-2) < 1.0 (0.5-3.6) ng/ml CK/CKMB % Calc TNP Troponin I (0-0.045) ng/ml C-Reactive Protein (0-0.29) mg/dl Total Protein (6.4-8.2) gm/dl Albumin (3.4-5.0) gm/dl Globulin (2.5-4.0) gm/dl Albumin/Globulin Ratio (0.9-2) Lipase (73-393) U/L Procalcitonin (0-0.5) ng/ml Urine Color Urine Appearance (Clear) Urine pH (4.5-7.5) Ur Specific [place] (1.000-1.030) Urine Protein (Negative) Urine Glucose (UA) (Negative) Urine Ketones (Negative) Urine Blood (Negative) Urine Nitrite (Negative) Urine Bilirubin (Negative) Urine Urobilinogen (Negative) Ur Leukocyte Esterase (Negative) Urine WBC (Auto) (0-5) /hpf Urine RBC (Auto) (0-4) /hpf U Hyaline Cast (Auto) (0-5) /lpf U Epithel Cells (Auto) (0-5) /lpf Urine Bacteria (Auto) (Negative) Granular Casts (0) /lpf Urine Yeast Hepatitis A IgM Ab (NON-REACTIVE) Hep Bs Antigen (Neg) Hep B Core IgM Ab (NON-REACTIVE) Hepatitis C Antibody (Neg) 11/15/18 11/15/18 11/15/18 Range/Units 07:55 07:58 08:20 WBC (4.8-10.8) K/uL RBC (4.2-5.4) M/uL Hgb (12.0-16.0) g/dL POC Hgb (12.0-16.0) g/dl Hct (37-47) % POC Hct (37-47) % MCV (80-100) fL MCH (25-34) pg MCHC (32-36) g/dL RDW Std Deviation (36.4-46.3) fL RDW Coeff of Tamra (11.5-14.5) % Plt Count (130-400) K/uL MPV (7.4-10.4) fL Immature Gran % (Auto) % Neut % (Auto) % Lymph % (Auto) % Moca % (Auto) % Eos % (Auto) % Baso % (Auto) % Immature Gran # (Auto) (0.00-0.02) K/uL Neut # (Auto) (1.4-6.5) K/uL Lymph # (Auto) (1.2-3.4) K/uL Moca # (Auto) (0.11-0.59) K/uL Eos # (Auto) (0-0.5) K/uL Baso # (Auto) (0-0.2) K/uL ESR (0-21) mm/hr PT (9.0-12.0) Seconds INR (0.9-1.1) APTT (21.0-31.0) Seconds PTT Ratio VBG pH (7.36-7.41) VBG pCO2 (38-50) mmHg VBG pO2 mmHg VBG HCO3 mmol/L VBG O2 Saturation % VBG Base Excess mEq/L Barometric Pressure mm/Hg POC Sodium (135-144) mEq/L Sodium (136-145) mmol/L POC Potassium (3.3-5.0) mEq/L Potassium (3.5-5.1) mmol/L POC Chloride (101-112) mEq/L Chloride (98-107) mmol/L Carbon Dioxide (21-32) mmol/L POC Total CO2 (24-31) mEq/l Anion Gap (3-11) POC Anion Gap (16-25) mmol/L POC BUN (7-18) mg/dl BUN (7-18) mg/dl Creatinine (0.6-1.2) mg/dl POC Creatinine (0.6-1.3) mg/dl Est Cr Clr Drug Dosing ml/min Est GFR ( Amer) Est GFR (Non-Af Amer) BUN/Creatinine Ratio (10-20) Glucose (70-99) mg/dl POC Glucose 59 L* 92 (70-99) POC Glucose (other) (70-99) mg/dl Lactate (0.4-2.0) mmol/L Calcium (8.5-10.1) mg/dl POC Ioniz Calcium Esau (1.12-1.32) mmol/l Magnesium (1.8-2.4) mg/dl Total Bilirubin (0.2-1) mg/dl Direct Bilirubin (0-0.2) mg/dl AST (15-37) U/L ALT (12-78) U/L Alkaline Phosphatase (45-117) U/L Ammonia (11-32) umol/L Total Creatine Kinase (26-192) U/L CK-MB (CK-2) (0.5-3.6) ng/ml CK/CKMB % Calc Troponin I (0-0.045) ng/ml C-Reactive Protein (0-0.29) mg/dl Total Protein (6.4-8.2) gm/dl Albumin (3.4-5.0) gm/dl Globulin (2.5-4.0) gm/dl Albumin/Globulin Ratio (0.9-2) Lipase (73-393) U/L Procalcitonin (0-0.5) ng/ml Urine Color Dark Yellow Urine Appearance Turbid H (Clear) Urine pH 5.0 (4.5-7.5) Ur Specific [place] 1.024 (1.000-1.030) Urine Protein 1+ H (Negative) Urine Glucose (UA) Negative (Negative) Urine Ketones Trace H (Negative) Urine Blood 3+ H (Negative) Urine Nitrite Positive H (Negative) Urine Bilirubin 1+ H (Negative) Urine Urobilinogen Positive H (Negative) Ur Leukocyte Esterase 3+ H (Negative) Urine WBC (Auto) >30 H (0-5) /hpf Urine RBC (Auto) >30 H (0-4) /hpf U Hyaline Cast (Auto) 10-30 H (0-5) /lpf U Epithel Cells (Auto) >30 H (0-5) /lpf Urine Bacteria (Auto) 1+ H (Negative) Granular Casts 5-10 H (0) /lpf Urine Yeast Not Reportable Hepatitis A IgM Ab (NON-REACTIVE) Hep Bs Antigen (Neg) Hep B Core IgM Ab (NON-REACTIVE) Hepatitis C Antibody (Neg) 11/15/18 11/15/18 11/15/18 Range/Units 08:53 10:52 10:54 WBC (4.8-10.8) K/uL RBC (4.2-5.4) M/uL Hgb (12.0-16.0) g/dL POC Hgb (12.0-16.0) g/dl Hct (37-47) % POC Hct (37-47) % MCV (80-100) fL MCH (25-34) pg MCHC (32-36) g/dL RDW Std Deviation (36.4-46.3) fL RDW Coeff of Tamra (11.5-14.5) % Plt Count (130-400) K/uL MPV (7.4-10.4) fL Immature Gran % (Auto) % Neut % (Auto) % Lymph % (Auto) % Moca % (Auto) % Eos % (Auto) % Baso % (Auto) % Immature Gran # (Auto) (0.00-0.02) K/uL Neut # (Auto) (1.4-6.5) K/uL Lymph # (Auto) (1.2-3.4) K/uL Moca # (Auto) (0.11-0.59) K/uL Eos # (Auto) (0-0.5) K/uL Baso # (Auto) (0-0.2) K/uL ESR (0-21) mm/hr PT (9.0-12.0) Seconds INR (0.9-1.1) APTT (21.0-31.0) Seconds PTT Ratio VBG pH (7.36-7.41) VBG pCO2 (38-50) mmHg VBG pO2 mmHg VBG HCO3 mmol/L VBG O2 Saturation % VBG Base Excess mEq/L Barometric Pressure mm/Hg POC Sodium (135-144) mEq/L Sodium (136-145) mmol/L POC Potassium (3.3-5.0) mEq/L Potassium (3.5-5.1) mmol/L POC Chloride (101-112) mEq/L Chloride (98-107) mmol/L Carbon Dioxide (21-32) mmol/L POC Total CO2 (24-31) mEq/l Anion Gap (3-11) POC Anion Gap (16-25) mmol/L POC BUN (7-18) mg/dl BUN (7-18) mg/dl Creatinine (0.6-1.2) mg/dl POC Creatinine (0.6-1.3) mg/dl Est Cr Clr Drug Dosing ml/min Est GFR ( Amer) Est GFR (Non-Af Amer) BUN/Creatinine Ratio (10-20) Glucose (70-99) mg/dl POC Glucose 83 68 L* 67 L* (70-99) POC Glucose (other) (70-99) mg/dl Lactate (0.4-2.0) mmol/L Calcium (8.5-10.1) mg/dl POC Ioniz Calcium Esau (1.12-1.32) mmol/l Magnesium (1.8-2.4) mg/dl Total Bilirubin (0.2-1) mg/dl Direct Bilirubin (0-0.2) mg/dl AST (15-37) U/L ALT (12-78) U/L Alkaline Phosphatase (45-117) U/L Ammonia (11-32) umol/L Total Creatine Kinase (26-192) U/L CK-MB (CK-2) (0.5-3.6) ng/ml CK/CKMB % Calc Troponin I (0-0.045) ng/ml C-Reactive Protein (0-0.29) mg/dl Total Protein (6.4-8.2) gm/dl Albumin (3.4-5.0) gm/dl Globulin (2.5-4.0) gm/dl Albumin/Globulin Ratio (0.9-2) Lipase (73-393) U/L Procalcitonin (0-0.5) ng/ml Urine Color Urine Appearance (Clear) Urine pH (4.5-7.5) Ur Specific [place] (1.000-1.030) Urine Protein (Negative) Urine Glucose (UA) (Negative) Urine Ketones (Negative) Urine Blood (Negative) Urine Nitrite (Negative) Urine Bilirubin (Negative) Urine Urobilinogen (Negative) Ur Leukocyte Esterase (Negative) Urine WBC (Auto) (0-5) /hpf Urine RBC (Auto) (0-4) /hpf U Hyaline Cast (Auto) (0-5) /lpf U Epithel Cells (Auto) (0-5) /lpf Urine Bacteria (Auto) (Negative) Granular Casts (0) /lpf Urine Yeast Hepatitis A IgM Ab (NON-REACTIVE) Hep Bs Antigen (Neg) Hep B Core IgM Ab (NON-REACTIVE) Hepatitis C Antibody (Neg) 11/15/18 11/15/18 11/15/18 Range/Units 11:17 11:36 11:36 WBC (4.8-10.8) K/uL RBC (4.2-5.4) M/uL Hgb (12.0-16.0) g/dL POC Hgb (12.0-16.0) g/dl Hct (37-47) % POC Hct (37-47) % MCV (80-100) fL MCH (25-34) pg MCHC (32-36) g/dL RDW Std Deviation (36.4-46.3) fL RDW Coeff of Tamra (11.5-14.5) % Plt Count (130-400) K/uL MPV (7.4-10.4) fL Immature Gran % (Auto) % Neut % (Auto) % Lymph % (Auto) % Moca % (Auto) % Eos % (Auto) % Baso % (Auto) % Immature Gran # (Auto) (0.00-0.02) K/uL Neut # (Auto) (1.4-6.5) K/uL Lymph # (Auto) (1.2-3.4) K/uL Moca # (Auto) (0.11-0.59) K/uL Eos # (Auto) (0-0.5) K/uL Baso # (Auto) (0-0.2) K/uL ESR (0-21) mm/hr PT (9.0-12.0) Seconds INR (0.9-1.1) APTT (21.0-31.0) Seconds PTT Ratio VBG pH (7.36-7.41) VBG pCO2 (38-50) mmHg VBG pO2 mmHg VBG HCO3 mmol/L VBG O2 Saturation % VBG Base Excess mEq/L Barometric Pressure mm/Hg POC Sodium (135-144) mEq/L Sodium (136-145) mmol/L POC Potassium (3.3-5.0) mEq/L Potassium (3.5-5.1) mmol/L POC Chloride (101-112) mEq/L Chloride (98-107) mmol/L Carbon Dioxide (21-32) mmol/L POC Total CO2 (24-31) mEq/l Anion Gap (3-11) POC Anion Gap (16-25) mmol/L POC BUN (7-18) mg/dl BUN (7-18) mg/dl Creatinine (0.6-1.2) mg/dl POC Creatinine (0.6-1.3) mg/dl Est Cr Clr Drug Dosing ml/min Est GFR ( Amer) Est GFR (Non-Af Amer) BUN/Creatinine Ratio (10-20) Glucose (70-99) mg/dl POC Glucose 119 H (70-99) POC Glucose (other) (70-99) mg/dl Lactate (0.4-2.0) mmol/L Calcium (8.5-10.1) mg/dl POC Ioniz Calcium Esau (1.12-1.32) mmol/l Magnesium (1.8-2.4) mg/dl Total Bilirubin (0.2-1) mg/dl Direct Bilirubin (0-0.2) mg/dl AST (15-37) U/L ALT (12-78) U/L Alkaline Phosphatase (45-117) U/L Ammonia (11-32) umol/L Total Creatine Kinase (26-192) U/L CK-MB (CK-2) (0.5-3.6) ng/ml CK/CKMB % Calc Troponin I (0-0.045) ng/ml C-Reactive Protein (0-0.29) mg/dl Total Protein (6.4-8.2) gm/dl Albumin (3.4-5.0) gm/dl Globulin (2.5-4.0) gm/dl Albumin/Globulin Ratio (0.9-2) Lipase (73-393) U/L Procalcitonin (0-0.5) ng/ml Urine Color Urine Appearance (Clear) Urine pH (4.5-7.5) Ur Specific [place] (1.000-1.030) Urine Protein (Negative) Urine Glucose (UA) (Negative) Urine Ketones (Negative) Urine Blood (Negative) Urine Nitrite (Negative) Urine Bilirubin (Negative) Urine Urobilinogen (Negative) Ur Leukocyte Esterase (Negative) Urine WBC (Auto) (0-5) /hpf Urine RBC (Auto) (0-4) /hpf U Hyaline Cast (Auto) (0-5) /lpf U Epithel Cells (Auto) (0-5) /lpf Urine Bacteria (Auto) (Negative) Granular Casts (0) /lpf Urine Yeast Hepatitis A IgM Ab NON-REACTIVE (NON-REACTIVE) Hep Bs Antigen Neg (Neg) Hep B Core IgM Ab NON-REACTIVE (NON-REACTIVE) Hepatitis C Antibody Neg (Neg) 11/15/18 11/15/18 11/15/18 Range/Units 11:36 11:36 11:36 WBC (4.8-10.8) K/uL RBC (4.2-5.4) M/uL Hgb (12.0-16.0) g/dL POC Hgb (12.0-16.0) g/dl Hct (37-47) % POC Hct (37-47) % MCV (80-100) fL MCH (25-34) pg MCHC (32-36) g/dL RDW Std Deviation (36.4-46.3) fL RDW Coeff of Tamra (11.5-14.5) % Plt Count (130-400) K/uL MPV (7.4-10.4) fL Immature Gran % (Auto) % Neut % (Auto) % Lymph % (Auto) % Moca % (Auto) % Eos % (Auto) % Baso % (Auto) % Immature Gran # (Auto) (0.00-0.02) K/uL Neut # (Auto) (1.4-6.5) K/uL Lymph # (Auto) (1.2-3.4) K/uL Moca # (Auto) (0.11-0.59) K/uL Eos # (Auto) (0-0.5) K/uL Baso # (Auto) (0-0.2) K/uL ESR (0-21) mm/hr PT (9.0-12.0) Seconds INR (0.9-1.1) APTT (21.0-31.0) Seconds PTT Ratio VBG pH 7.29 L (7.36-7.41) VBG pCO2 91 H (38-50) mmHg VBG pO2 46 mmHg VBG HCO3 42 mmol/L VBG O2 Saturation 74.1 % VBG Base Excess 12.6 mEq/L Barometric Pressure 738.6 mm/Hg POC Sodium (135-144) mEq/L Sodium (136-145) mmol/L POC Potassium (3.3-5.0) mEq/L Potassium (3.5-5.1) mmol/L POC Chloride (101-112) mEq/L Chloride (98-107) mmol/L Carbon Dioxide (21-32) mmol/L POC Total CO2 (24-31) mEq/l Anion Gap (3-11) POC Anion Gap (16-25) mmol/L POC BUN (7-18) mg/dl BUN (7-18) mg/dl Creatinine (0.6-1.2) mg/dl POC Creatinine (0.6-1.3) mg/dl Est Cr Clr Drug Dosing ml/min Est GFR ( Amer) Est GFR (Non-Af Amer) BUN/Creatinine Ratio (10-20) Glucose (70-99) mg/dl POC Glucose (70-99) POC Glucose (other) (70-99) mg/dl Lactate 2.2 H* (0.4-2.0) mmol/L Calcium (8.5-10.1) mg/dl POC Ioniz Calcium Esau (1.12-1.32) mmol/l Magnesium (1.8-2.4) mg/dl Total Bilirubin (0.2-1) mg/dl Direct Bilirubin (0-0.2) mg/dl AST (15-37) U/L ALT (12-78) U/L Alkaline Phosphatase (45-117) U/L Ammonia 52.0 H (11-32) umol/L Total Creatine Kinase (26-192) U/L CK-MB (CK-2) (0.5-3.6) ng/ml CK/CKMB % Calc Troponin I (0-0.045) ng/ml C-Reactive Protein (0-0.29) mg/dl Total Protein (6.4-8.2) gm/dl Albumin (3.4-5.0) gm/dl Globulin (2.5-4.0) gm/dl Albumin/Globulin Ratio (0.9-2) Lipase (73-393) U/L Procalcitonin (0-0.5) ng/ml Urine Color Urine Appearance (Clear) Urine pH (4.5-7.5) Ur Specific [place] (1.000-1.030) Urine Protein (Negative) Urine Glucose (UA) (Negative) Urine Ketones (Negative) Urine Blood (Negative) Urine Nitrite (Negative) Urine Bilirubin (Negative) Urine Urobilinogen (Negative) Ur Leukocyte Esterase (Negative) Urine WBC (Auto) (0-5) /hpf Urine RBC (Auto) (0-4) /hpf U Hyaline Cast (Auto) (0-5) /lpf U Epithel Cells (Auto) (0-5) /lpf Urine Bacteria (Auto) (Negative) Granular Casts (0) /lpf Urine Yeast Hepatitis A IgM Ab (NON-REACTIVE) Hep Bs Antigen (Neg) Hep B Core IgM Ab (NON-REACTIVE) Hepatitis C Antibody (Neg) 11/15/18 11/15/18 11/15/18 Range/Units 13:55 13:55 13:55 WBC (4.8-10.8) K/uL RBC (4.2-5.4) M/uL Hgb (12.0-16.0) g/dL POC Hgb (12.0-16.0) g/dl Hct (37-47) % POC Hct (37-47) % MCV (80-100) fL MCH (25-34) pg MCHC (32-36) g/dL RDW Std Deviation (36.4-46.3) fL RDW Coeff of Tamra (11.5-14.5) % Plt Count (130-400) K/uL MPV (7.4-10.4) fL Immature Gran % (Auto) % Neut % (Auto) % Lymph % (Auto) % Moca % (Auto) % Eos % (Auto) % Baso % (Auto) % Immature Gran # (Auto) (0.00-0.02) K/uL Neut # (Auto) (1.4-6.5) K/uL Lymph # (Auto) (1.2-3.4) K/uL Moca # (Auto) (0.11-0.59) K/uL Eos # (Auto) (0-0.5) K/uL Baso # (Auto) (0-0.2) K/uL ESR (0-21) mm/hr PT 12.0 (9.0-12.0) Seconds INR 1.2 H (0.9-1.1) APTT (21.0-31.0) Seconds PTT Ratio VBG pH 7.27 L (7.36-7.41) VBG pCO2 95 H (38-50) mmHg VBG pO2 45 mmHg VBG HCO3 43 mmol/L VBG O2 Saturation 72.0 % VBG Base Excess 12.8 mEq/L Barometric Pressure 737.4 mm/Hg POC Sodium (135-144) mEq/L Sodium (136-145) mmol/L POC Potassium (3.3-5.0) mEq/L Potassium (3.5-5.1) mmol/L POC Chloride (101-112) mEq/L Chloride (98-107) mmol/L Carbon Dioxide (21-32) mmol/L POC Total CO2 (24-31) mEq/l Anion Gap (3-11) POC Anion Gap (16-25) mmol/L POC BUN (7-18) mg/dl BUN (7-18) mg/dl Creatinine (0.6-1.2) mg/dl POC Creatinine (0.6-1.3) mg/dl Est Cr Clr Drug Dosing ml/min Est GFR ( Amer) Est GFR (Non-Af Amer) BUN/Creatinine Ratio (10-20) Glucose (70-99) mg/dl POC Glucose (70-99) POC Glucose (other) (70-99) mg/dl Lactate (0.4-2.0) mmol/L Calcium (8.5-10.1) mg/dl POC Ioniz Calcium Esau (1.12-1.32) mmol/l Magnesium (1.8-2.4) mg/dl Total Bilirubin 0.8 (0.2-1) mg/dl Direct Bilirubin 0.4 H (0-0.2) mg/dl AST 1129 H (15-37) U/L ALT 635 H (12-78) U/L Alkaline Phosphatase 64 (45-117) U/L Ammonia (11-32) umol/L Total Creatine Kinase (26-192) U/L CK-MB (CK-2) (0.5-3.6) ng/ml CK/CKMB % Calc Troponin I (0-0.045) ng/ml C-Reactive Protein (0-0.29) mg/dl Total Protein 6.7 (6.4-8.2) gm/dl Albumin 2.8 L (3.4-5.0) gm/dl Globulin (2.5-4.0) gm/dl Albumin/Globulin Ratio (0.9-2) Lipase (73-393) U/L Procalcitonin (0-0.5) ng/ml Urine Color Urine Appearance (Clear) Urine pH (4.5-7.5) Ur Specific [place] (1.000-1.030) Urine Protein (Negative) Urine Glucose (UA) (Negative) Urine Ketones (Negative) Urine Blood (Negative) Urine Nitrite (Negative) Urine Bilirubin (Negative) Urine Urobilinogen (Negative) Ur Leukocyte Esterase (Negative) Urine WBC (Auto) (0-5) /hpf Urine RBC (Auto) (0-4) /hpf U Hyaline Cast (Auto) (0-5) /lpf U Epithel Cells (Auto) (0-5) /lpf Urine Bacteria (Auto) (Negative) Granular Casts (0) /lpf Urine Yeast Hepatitis A IgM Ab (NON-REACTIVE) Hep Bs Antigen (Neg) Hep B Core IgM Ab (NON-REACTIVE) Hepatitis C Antibody (Neg) 11/15/18 11/15/18 11/15/18 Range/Units 16:48 19:44 19:44 WBC (4.8-10.8) K/uL RBC (4.2-5.4) M/uL Hgb (12.0-16.0) g/dL POC Hgb (12.0-16.0) g/dl Hct (37-47) % POC Hct (37-47) % MCV (80-100) fL MCH (25-34) pg MCHC (32-36) g/dL RDW Std Deviation (36.4-46.3) fL RDW Coeff of Tamra (11.5-14.5) % Plt Count (130-400) K/uL MPV (7.4-10.4) fL Immature Gran % (Auto) % Neut % (Auto) % Lymph % (Auto) % Moca % (Auto) % Eos % (Auto) % Baso % (Auto) % Immature Gran # (Auto) (0.00-0.02) K/uL Neut # (Auto) (1.4-6.5) K/uL Lymph # (Auto) (1.2-3.4) K/uL Moca # (Auto) (0.11-0.59) K/uL Eos # (Auto) (0-0.5) K/uL Baso # (Auto) (0-0.2) K/uL ESR (0-21) mm/hr PT (9.0-12.0) Seconds INR (0.9-1.1) APTT (21.0-31.0) Seconds PTT Ratio VBG pH (7.36-7.41) VBG pCO2 (38-50) mmHg VBG pO2 mmHg VBG HCO3 mmol/L VBG O2 Saturation % VBG Base Excess mEq/L Barometric Pressure mm/Hg POC Sodium (135-144) mEq/L Sodium 136 (136-145) mmol/L POC Potassium (3.3-5.0) mEq/L Potassium 4.8 (3.5-5.1) mmol/L POC Chloride (101-112) mEq/L Chloride 93 L (98-107) mmol/L Carbon Dioxide 39 H (21-32) mmol/L POC Total CO2 (24-31) mEq/l Anion Gap 4.0 (3-11) POC Anion Gap (16-25) mmol/L POC BUN (7-18) mg/dl BUN 29 H (7-18) mg/dl Creatinine 1.56 H D (0.6-1.2) mg/dl POC Creatinine (0.6-1.3) mg/dl Est Cr Clr Drug Dosing 67.0 ml/min Est GFR ( Amer) 40.8 Est GFR (Non-Af Amer) 35.2 BUN/Creatinine Ratio 18.7 (10-20) Glucose 180 H (70-99) mg/dl POC Glucose 158 H (70-99) POC Glucose (other) (70-99) mg/dl Lactate (0.4-2.0) mmol/L Calcium 8.8 (8.5-10.1) mg/dl POC Ioniz Calcium Esau (1.12-1.32) mmol/l Magnesium (1.8-2.4) mg/dl Total Bilirubin (0.2-1) mg/dl Direct Bilirubin (0-0.2) mg/dl AST (15-37) U/L ALT (12-78) U/L Alkaline Phosphatase (45-117) U/L Ammonia (11-32) umol/L Total Creatine Kinase (26-192) U/L CK-MB (CK-2) (0.5-3.6) ng/ml CK/CKMB % Calc Troponin I 0.179 H* (0-0.045) ng/ml C-Reactive Protein (0-0.29) mg/dl Total Protein (6.4-8.2) gm/dl Albumin (3.4-5.0) gm/dl Globulin (2.5-4.0) gm/dl Albumin/Globulin Ratio (0.9-2) Lipase (73-393) U/L Procalcitonin (0-0.5) ng/ml Urine Color Urine Appearance (Clear) Urine pH (4.5-7.5) Ur Specific Ho[place] (1.000-1.030) Urine Protein (Negative) Urine Glucose (UA) (Negative) Urine Ketones (Negative) Urine Blood (Negative) Urine Nitrite (Negative) Urine Bilirubin (Negative) Urine Urobilinogen (Negative) Ur Leukocyte Esterase (Negative) Urine WBC (Auto) (0-5) /hpf Urine RBC (Auto) (0-4) /hpf U Hyaline Cast (Auto) (0-5) /lpf U Epithel Cells (Auto) (0-5) /lpf Urine Bacteria (Auto) (Negative) Granular Casts (0) /lpf Urine Yeast Hepatitis A IgM Ab (NON-REACTIVE) Hep Bs Antigen (Neg) Hep B Core IgM Ab (NON-REACTIVE) Hepatitis C Antibody (Neg) 11/15/18 11/15/18 11/15/18 Range/Units 19:44 19:44 21:25 WBC (4.8-10.8) K/uL RBC (4.2-5.4) M/uL Hgb (12.0-16.0) g/dL POC Hgb (12.0-16.0) g/dl Hct (37-47) % POC Hct (37-47) % MCV (80-100) fL MCH (25-34) pg MCHC (32-36) g/dL RDW Std Deviation (36.4-46.3) fL RDW Coeff of Tamra (11.5-14.5) % Plt Count (130-400) K/uL MPV (7.4-10.4) fL Immature Gran % (Auto) % Neut % (Auto) % Lymph % (Auto) % Moca % (Auto) % Eos % (Auto) % Baso % (Auto) % Immature Gran # (Auto) (0.00-0.02) K/uL Neut # (Auto) (1.4-6.5) K/uL Lymph # (Auto) (1.2-3.4) K/uL Moca # (Auto) (0.11-0.59) K/uL Eos # (Auto) (0-0.5) K/uL Baso # (Auto) (0-0.2) K/uL ESR (0-21) mm/hr PT (9.0-12.0) Seconds INR (0.9-1.1) APTT (21.0-31.0) Seconds PTT Ratio VBG pH 7.34 L (7.36-7.41) VBG pCO2 77 H (38-50) mmHg VBG pO2 56 mmHg VBG HCO3 40 mmol/L VBG O2 Saturation 85.4 % VBG Base Excess 11.9 mEq/L Barometric Pressure 735.6 mm/Hg POC Sodium (135-144) mEq/L Sodium (136-145) mmol/L POC Potassium (3.3-5.0) mEq/L Potassium (3.5-5.1) mmol/L POC Chloride (101-112) mEq/L Chloride (98-107) mmol/L Carbon Dioxide (21-32) mmol/L POC Total CO2 (24-31) mEq/l Anion Gap (3-11) POC Anion Gap (16-25) mmol/L POC BUN (7-18) mg/dl BUN (7-18) mg/dl Creatinine (0.6-1.2) mg/dl POC Creatinine (0.6-1.3) mg/dl Est Cr Clr Drug Dosing ml/min Est GFR ( Amer) Est GFR (Non-Af Amer) BUN/Creatinine Ratio (10-20) Glucose (70-99) mg/dl POC Glucose 212 H (70-99) POC Glucose (other) (70-99) mg/dl Lactate 1.2 (0.4-2.0) mmol/L Calcium (8.5-10.1) mg/dl POC Ioniz Calcium Esau (1.12-1.32) mmol/l Magnesium (1.8-2.4) mg/dl Total Bilirubin (0.2-1) mg/dl Direct Bilirubin (0-0.2) mg/dl AST (15-37) U/L ALT (12-78) U/L Alkaline Phosphatase (45-117) U/L Ammonia (11-32) umol/L Total Creatine Kinase (26-192) U/L CK-MB (CK-2) (0.5-3.6) ng/ml CK/CKMB % Calc Troponin I (0-0.045) ng/ml C-Reactive Protein (0-0.29) mg/dl Total Protein (6.4-8.2) gm/dl Albumin (3.4-5.0) gm/dl Globulin (2.5-4.0) gm/dl Albumin/Globulin Ratio (0.9-2) Lipase (73-393) U/L Procalcitonin (0-0.5) ng/ml Urine Color Urine Appearance (Clear) Urine pH (4.5-7.5) Ur Specific [place] (1.000-1.030) Urine Protein (Negative) Urine Glucose (UA) (Negative) Urine Ketones (Negative) Urine Blood (Negative) Urine Nitrite (Negative) Urine Bilirubin (Negative) Urine Urobilinogen (Negative) Ur Leukocyte Esterase (Negative) Urine WBC (Auto) (0-5) /hpf Urine RBC (Auto) (0-4) /hpf U Hyaline Cast (Auto) (0-5) /lpf U Epithel Cells (Auto) (0-5) /lpf Urine Bacteria (Auto) (Negative) Granular Casts (0) /lpf Urine Yeast Hepatitis A IgM Ab (NON-REACTIVE) Hep Bs Antigen (Neg) Hep B Core IgM Ab (NON-REACTIVE) Hepatitis C Antibody (Neg) 11/16/18 11/16/18 Range/Units 00:12 05:46 WBC (4.8-10.8) K/uL RBC (4.2-5.4) M/uL Hgb (12.0-16.0) g/dL POC Hgb (12.0-16.0) g/dl Hct (37-47) % POC Hct (37-47) % MCV (80-100) fL MCH (25-34) pg MCHC (32-36) g/dL RDW Std Deviation (36.4-46.3) fL RDW Coeff of Tamra (11.5-14.5) % Plt Count (130-400) K/uL MPV (7.4-10.4) fL Immature Gran % (Auto) % Neut % (Auto) % Lymph % (Auto) % Moca % (Auto) % Eos % (Auto) % Baso % (Auto) % Immature Gran # (Auto) (0.00-0.02) K/uL Neut # (Auto) (1.4-6.5) K/uL Lymph # (Auto) (1.2-3.4) K/uL Moca # (Auto) (0.11-0.59) K/uL Eos # (Auto) (0-0.5) K/uL Baso # (Auto) (0-0.2) K/uL ESR (0-21) mm/hr PT (9.0-12.0) Seconds INR (0.9-1.1) APTT (21.0-31.0) Seconds PTT Ratio VBG pH (7.36-7.41) VBG pCO2 (38-50) mmHg VBG pO2 mmHg VBG HCO3 mmol/L VBG O2 Saturation % VBG Base Excess mEq/L Barometric Pressure mm/Hg POC Sodium (135-144) mEq/L Sodium (136-145) mmol/L POC Potassium (3.3-5.0) mEq/L Potassium (3.5-5.1) mmol/L POC Chloride (101-112) mEq/L Chloride (98-107) mmol/L Carbon Dioxide (21-32) mmol/L POC Total CO2 (24-31) mEq/l Anion Gap (3-11) POC Anion Gap (16-25) mmol/L POC BUN (7-18) mg/dl BUN (7-18) mg/dl Creatinine (0.6-1.2) mg/dl POC Creatinine (0.6-1.3) mg/dl Est Cr Clr Drug Dosing ml/min Est GFR ( Amer) Est GFR (Non-Af Amer) BUN/Creatinine Ratio (10-20) Glucose (70-99) mg/dl POC Glucose 221 H 244 H (70-99) POC Glucose (other) (70-99) mg/dl Lactate (0.4-2.0) mmol/L Calcium (8.5-10.1) mg/dl POC Ioniz Calcium Esau (1.12-1.32) mmol/l Magnesium (1.8-2.4) mg/dl Total Bilirubin (0.2-1) mg/dl Direct Bilirubin (0-0.2) mg/dl AST (15-37) U/L ALT (12-78) U/L Alkaline Phosphatase (45-117) U/L Ammonia (11-32) umol/L Total Creatine Kinase (26-192) U/L CK-MB (CK-2) (0.5-3.6) ng/ml CK/CKMB % Calc Troponin I (0-0.045) ng/ml C-Reactive Protein (0-0.29) mg/dl Total Protein (6.4-8.2) gm/dl Albumin (3.4-5.0) gm/dl Globulin (2.5-4.0) gm/dl Albumin/Globulin Ratio (0.9-2) Lipase (73-393) U/L Procalcitonin (0-0.5) ng/ml Urine Color Urine Appearance (Clear) Urine pH (4.5-7.5) Ur Specific [place] (1.000-1.030) Urine Protein (Negative) Urine Glucose (UA) (Negative) Urine Ketones (Negative) Urine Blood (Negative) Urine Nitrite (Negative) Urine Bilirubin (Negative) Urine Urobilinogen (Negative) Ur Leukocyte Esterase (Negative) Urine WBC (Auto) (0-5) /hpf Urine RBC (Auto) (0-4) /hpf U Hyaline Cast (Auto) (0-5) /lpf U Epithel Cells (Auto) (0-5) /lpf Urine Bacteria (Auto) (Negative) Granular Casts (0) /lpf Urine Yeast Hepatitis A IgM Ab (NON-REACTIVE) Hep Bs Antigen (Neg) Hep B Core IgM Ab (NON-REACTIVE) Hepatitis C Antibody (Neg) Imaging Data Radiologist's Impression: Radiology results as stated below per my review and the radiologist's interpretation: XR chest 1V portable HISTORY: Sepsis COMPARISON: Chest 12/23/2017. FINDINGS: There are low lung volumes. No pneumothorax. No pleural effusions. The heart remains enlarged. Progressive interstitial and vascular thickening consistent with mild pulmonary edema. IMPRESSION: Cardiomegaly with mild interstitial pulmonary edema. This has progressed in the interval. Electronically signed by: Willy Gaffney M.D. 11/15/2018 8:[address] SCAN OF THE ABDOMEN AND PELVIS WITHOUT IV CONTRAST CLINICAL HISTORY: Urinary tract infection. Elevated serum creatinine. COMPARISON STUDY: Pelvic ultrasound dated 11/21/2015. TECHNIQUE: CT scan of the abdomen and pelvis is performed from the lung bases to the proximal femora. Images are reviewed in the axial, sagittal, and coronal planes. IV contrast was not administered for this examination due to poor renal function. A dose lowering technique was utilized adhering to the principles of ALARA. The examination is significantly degraded by large body habitus, and by streak artifact from the body wall abutting the CT gantry. CT DOSE: 2114.20 mGy.cm FINDINGS: Lung bases: The heart is top normal in size and without pericardial effusion. There are trace pleural effusions with bibasilar atelectasis. There is a tiny hiatal hernia. Liver: The unenhanced liver is markedly enlarged, measuring 31.2 cm in length. The liver is otherwise normal in contour and attenuation. There is no intrahepatic biliary ductal dilatation. Gallbladder: The gallbladder is distended but otherwise normal as imaged. Evaluation of the gallbladder is significantly degraded by streak artifact. Spleen: The spleen is enlarged, measuring 15.8 cm in length. Pancreas: The unenhanced pancreas is atrophic and grossly unremarkable. Adrenal glands: Unremarkable. Kidneys: The unenhanced kidneys demonstrate cortical atrophy and are without hydronephrosis. There are no renal calculi identified. There is no evidence of contour deforming renal mass lesion. Abdominal vasculature: The abdominal aorta is normal in course and caliber noting mild atherosclerotic calcification. Bowel: There is moderate constipation. No bowel obstruction is identified. There is laxity of the ventral abdominal wall with diastases of the rectus musculature and protrusion of abdominal contents. The appendix is normal as imaged. Peritoneum: There is no intraperitoneal free air or abdominal ascites. There is evidence of previous ventral hernia repair. Lymphadenopathy: None. Pelvic viscera: The bladder is decompressed around a Garcia catheter and not well evaluated. Small foci of intraluminal gas are noted. Pericystic stranding suggested. The uterus and adnexa are normal as imaged. Skeletal structures: The skeletal structures are osteopenic. There is moderate to advanced lumbar sacral spondylosis. Advanced arthritic change is seen in the hips. No lytic or blastic lesions are seen. Soft tissues: There is mild body wall edema. IMPRESSION: 1. The examination is significantly degraded by large body habitus and streak artifact from the body wall abutting the CT gantry. 2. Although the bladder is decompressed and a Garcia catheter, the imaging findings suggest cystitis. Correlation with clinical findings and urinalysis will be required. 3. Trace pleural effusions with bibasilar atelectasis. 4. Moderate constipation. 5. Marked hepatomegaly. 6. Splenomegaly. 7. Additional findings as above. Electronically signed by: Johnny Walker M.D. 11/15/2018 8:50 AM ECG Data Attestation: I personally reviewed and interpreted this ECG as follows: Indication: weakness Rate (beats per minute): 81 Rhythm: normal sinus Findings: + other (low voltage); no PAC, no PVC, no ST depression, no ST elevation, no acute ischemic change and no ectopy Comparison ECG Date: from (12/23/17) Change: no significant change Blood Pressure Blood Pressure Findings: Low blood pressure Blood Pressure Disposition: further management by hospitalist BILLY Steinberg The patient is a 63-year-old female who presented to the emergency department for an evaluation of generalized weakness. She was started on IV fluids by the prehospital team for hypotension. The patient was recently started on antibiotic for presumed urinary tract infection by the primary care physician. The patient was treated further with IV fluids and IV antibiotics in the emergency department. She was reevaluated multiple times. I discussed the patient's laboratory and radiographic studies with her. She was feeling much better on subsequent reevaluation and her blood pressure responded to IV hydration. At this time the patient does appear to have a very significant urinary tract infection with an elevated creatinine. CAT scan did not show any acute intra-abdominal process. The patient was found to have a mildly elevated troponin as well as an elevated set of transaminases. I discussed the patient's laboratory and radiographic studies with the on-call [facility] hospitalist group. They have agreed to evaluate the patient in the emergency department for further management and disposition. Impression & Plan Sepsis secondary to UTI, Hypoglycemia, Respiratory acidosis, HOLLY (acute kidney injury) Critical Care Time I have personally spent 50 minutes of critical care time in the direct management of this patient. This includes bedside care, interpretation of diagnostic studies, and testing, discussion with consultants, patient, and family members, and other required patient management activities. This 50 minutes is in excess of all separately billable procedures. Critical Care Time: Yes Total Critical Care Time: 50 Discharge Plan Visit Data *Final* Discharge Date/Time: 11/15/18 10:29 Chief Complaint: Lethargic ED Provider: Hang Hale Discharge Problem: Sepsis secondary to UTI, Hypoglycemia, Respiratory acidosis, HOLLY (acute kidney injury) Patient Disposition: Admitted As Inpatient Discharge Instructions Interventions: ED Discharge Assessment Last Done: 11/15/18 10:29 The scribe's documentation has been prepared under my direction and personally reviewed by me in its entirety. I confirm that the note above accurately reflects all work, treatment, procedures, and medical decision making performed by me.
--- NOTE | 2018-11-15 09:09 | History & Physical Report ---
Date of Service November 15, 2018 Assessment & Plan (1) Severe sepsis: Significant hypotension in the ER at presentation requiring fluid resuscitation. Good response thus far to volume expansion. Has myocardial demand ischemia, lactic acidosis, possible shock liver, altered MS. Likely source - UTI. Cannot exclude biliary tract source but less likely (ast, alt are up but t.bili and alk phos are normal). Doubt pulmonary source. Fortunately we have cultures from the [facility] showing proteus and VRE UTI. Urine cx will be repeated along with blood cultures. Repeat VBG and lactate at 1100 this am. Will obtain ammonia level with it given her hepatosplenomegaly and elevated LFTs (does she have baseline cirrhosis from JUDGE??). Present on Admission?: Yes (2) Sepsis secondary to UTI: as above in "severe sepsis" will need barboza exchanged this admission (last exchange 11/05/18). copious fluids (received 2 L of NS already, will give 3rd Liter now, then fluids at 150cc/hr). Present on Admission?: Yes (3) ATN (acute tubular necrosis): HOLLY 2nd to sepsis-associated ATN. casts seen on u/a c/w ATN. Supportive care. Barboza. Plan to repeat BMP later today and in AM. Present on Admission?: Yes (4) Respiratory failure, [id number]: BIPAP now. repeat VBG at 11am. titrate O2 to maintain O2 sats low 90s. No evidence of pneumonia process clinically or COPD exacerbation. Present on Admission?: Yes (5) Metabolic encephalopathy: 2nd to sepsis and hypercarbia. cannot rule out toxic from her narcotics. hold narcs for now. r/o hepatic encephalopathy with ammonia level this AM. Present on Admission?: Yes (6) Acute hepatitis: concerning for "shock" liver. cannot rule out infectious hepatitis but less likely. cannot rule out biliary tract disease (gallstones, etc). check acute hepatitis profile now. RUQ u/s today. serial LFTs. may need GI consultation. watch INR carefully. Present on Admission?: Yes (7) DM II (diabetes mellitus, type II), controlled: With hypoglycemia. Insulin pump removed. Follow sugars. Present on Admission?: Yes (8) HTN (hypertension): Hold home BP meds. Present on Admission?: Yes (9) HLD (hyperlipidemia): Hold statin due to elevated ast/alt. Present on Admission?: Yes (10) Chronic respiratory failure with hypoxia and hypercapnia: 2nd to ZACKARY, OHS, COPD. On home O2 3 L continuously. Ideally needs BIPAP HS. Present on Admission?: Yes (11) Morbid obesity with BMI of 60.0-69.9, adult: BMI 66 Present on Admission?: Yes (12) Obesity hypoventilation syndrome: Present on Admission?: Yes (13) Chronic indwelling Barboza catheter: Reason? neurogenic from l-spine issues? neurogenic from diabetic neuropathy? other?? needs barboza exchanged this admission. Present on Admission?: Yes (14) Psoriasis: severe. continue topical treatments. Present on Admission?: Yes (15) COPD (chronic obstructive pulmonary disease): (16) Chronic pain syndrome: Hold narcotics due to altered MS. Present on Admission?: Yes (17) HOLLY (acute kidney injury): 2nd ATN - see above. (18) Hypoglycemia: resolved. 2nd to severe sepsis, insulin pump, poor PO intake. follow carefully. (19) Ambulatory dysfunction: Bedbound at home x 1 year. Does she need SNF?? (20) Elevated troponin: Serial troponins while here. Likely myocardial demand ischemia in setting of sepsis. No anginal symptoms. (21) DVT prophylaxis: heparin BID History of Present Illness Chief Complaint: extreme weakness, fatigue, UTI Primary Care Provider: Robbie Yeh 63yo female with morbid obesity (BMI 66), chronic hypoxic/hypercarbic resp failure on home O2 3 L continuously, T2DM on insulin pump, HTN, and COPD who presents from home via EMS with severe fatigue, anorexia, weakness, UTI, and lethargy. Patient states she has had a chronic barboza catheter x 1 year (last exchange on 11/05/18 by history) and over the last 7-10 days has been taking antibiotics for a UTI. She was mildly altered during my history taking and could only tell me that she was prescribed antibiotics and later on the antibiotic was changed based on culture results. She thinks that she started on the antibiotics this past Tuesday when [facility] visited her at home. Her home medication regimen lists PCN VK as her antibiotic along with macrobid. Despite recent antibiotics she reports feeling "terrible" over the last 2-3 days with considerable weakness/fatigue/anorexia/dehydration. She denied any dizziness but she is bed-bound / does not ambulate under any circumstances. She has been bed-bound x 1 year. Urine culture results were obtained from the [facility] dated 11/02/2018. This grew VRE (sensitive to PCN, amp, and daptomycin) along with proteus (pansensitive except for tetracycline and macrobid). Upon ER presentation today the patient was awake but very sleepy/borderline lethargic at times and mildly altered. Systolic BP was in the 60s. She was hypoglycemic requiring an amp of D50. Her insulin pump was removed by the ER staff. She was given multiple saline boluses. Her SBP improved into the low 100s. The patient kept falling asleep during the visit. Myoclonic jerks were noted throughout. She reported that this was chronic for her. When asked about code status she said "I've been thinking about talking to my about this." Ultimately she chose full code status. Due to significant hypercarbia I asked respiratory to place BIPAP while awaiting admission. Allergies Allergy/AdvReac Type Severity Reaction Status Date / Time No Known Allergies Allergy Unverified 11/15/18 08:22 Home Medications Home Medications Medication Instructions Recorded Confirmed Type atorvastatin [Lipitor] 10 mg PO HS 11/15/18 11/15/18 History betamethasone dipropionate 1 applic TOPICAL BID 11/15/18 11/15/18 History carvedilol 3.125 mg PO BID 11/15/18 11/15/18 History cholecalciferol (vitamin D3) 5,000 unit PO 3XWK 11/15/18 11/15/18 History [Vitamin D3] cyanocobalamin (vitamin B-12) 1,000 mcg IM Q30D 11/15/18 11/15/18 History diclofenac sodium 2 g TOPICAL QID PRN 11/15/18 11/15/18 History diphenhydramine HCl [Benadryl] 25 mg PO Q6H 11/15/18 11/15/18 History docusate sodium 100 mg PO BID 11/15/18 11/15/18 History ferrous sulfate 325 mg PO DAILY 11/15/18 11/15/18 History fluticasone propion-salmeterol 1 inh INHALATION BID 11/15/18 11/15/18 History [Advair Diskus] furosemide [Lasix] 40 mg PO BID 11/15/18 11/15/18 History gabapentin 100 mg PO TID 11/15/18 11/15/18 History gabapentin 600 mg PO TID 11/15/18 11/15/18 History insulin regular hum U-500 conc 0 unit SUBCUT DAILY 11/15/18 11/15/18 History [Humulin R U-500 (Conc) Insulin] ketoconazole 1 applic TOPICAL DAILY 11/15/18 11/15/18 History linaclotide [Linzess] 145 mcg PO DAILY 11/15/18 11/15/18 History metformin 850 mg PO TID 11/15/18 11/15/18 History naproxen 500 mg PO BID 11/15/18 11/15/18 History nitrofurantoin macrocrystal 50 mg PO HS 11/15/18 11/15/18 History nortriptyline 10 mg PO TID 11/15/18 11/15/18 History nystatin 1 applic TOPICAL PM 11/15/18 11/15/18 History omega 9-dah-jcu-fish oil [Stanton-3 1 cap PO BID 11/15/18 11/15/18 History Fish Oil] omeprazole magnesium [Prilosec OTC] 20 mg PO DAILY 11/15/18 11/15/18 History ondansetron HCl [Zofran] 4 mg PO Q6H PRN 11/15/18 11/15/18 History oxycodone 20 mg PO Q6H 11/15/18 11/15/18 History penicillin V potassium 500 mg PO QID 11/15/18 11/15/18 History tiotropium bromide [Spiriva with 1 cap INHALATION DAILY 11/15/18 11/15/18 History HandiHaler] Past Med/Surg History Medical History COPD (chronic obstructive pulmonary disease) (Chronic) Chronic indwelling Barboza catheter (Chronic) Chronic respiratory failure with hypoxia and hypercapnia (Chronic) on home o2, 3 L continuously DM II (diabetes mellitus, type II), controlled (Chronic) HLD (hyperlipidemia) (Chronic) HTN (hypertension) (Chronic) Obesity hypoventilation syndrome (Chronic) Psoriasis (Chronic) Chronic pain syndrome 2nd to OA of knees; takes chronic opiates Morbid obesity with BMI of 60.0-69.9, adult Recurrent UTI (urinary tract infection) Surgical history unknown Family History Father Lung disease Mother , some form of uterine disease? No problems noted. 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 Other Information That Helps Us Care for You: No Feels Safe at Home: Yes Safety Concerns: Feels Safe At This Time Smoking Status: Former smoker Tobacco Type: cigarettes packs per day: 1 Years Smoked: 35 Do You Dip or Chew Tobacco: No Smoking End Date: 2009 Second Hand Exposure: No Tobacco Cessation Education Requested by Patient: No Hx Alcohol Use: No Hx Substance Use: No Review of Systems Constitutional: + fatigue and + anorexia; no fever, no chills and no weight gain Ear, Nose, Mouth, Throat: no sore throat and no dysphagia Respiratory: + cough and + dyspnea on exertion; no dyspnea (none at rest) and no wheezing Cardiovascular: + orthopnea and + edema; no chest pain Gastrointestinal: + constipation; no abdominal pain, no nausea, no vomiting and no diarrhea/loose stools Genitourinary: chronic barboza; urine recently foul-smelling Musculoskeletal: + joint pain (knees) Integumentary: + rash (chronic psoriasis) Neurologic: + localized weakness (legs - chronic) Psychiatric: + confusion Endocrine: hyperglycemia at home last few days Physical Exam Constitutional: + ill appearing, + morbidly obese and + altered mental status falls asleep easily Eyes: PERRL ENMT: Mouth: + oral mucosal abnormality (MM very dry) and + dentition abnormality (poor dentition, dentures also present) Neck: trachea midline, no thyromegaly Respiratory: no respiratory distress Auscultation: + diminished lung sounds (bases); no crackles, no rhonchi and no wheezes Cardiovascular: Rate/Rhythm: regular rate and regular rhythm Heart Sounds: normal S1 and normal S2 Vessels: posterior tibial pulses present and dorsalis pedis pulses present; no JVD Extremities: + edema (<1 + b/l) Gastrointestinal (Abdomen): Inspection/Auscultation: + abdomen distended Percussion/Palpation: + hepatomegaly and + hernia (midline- reducible (vs diasthesis recti)); abdomen nontender, no guarding and abdomen not rigid Musculoskeletal: OA changes of knees; arthritic changes of b/l hands Skin: copious psoriatic plaques, patches, etc covering most surfaces; extensive erythema with scale in the groin region/intertrigonous regions extending to flanks and back Neurologic: deep tendon reflexes 2+ bilaterally (upper exts) and moves all extremities (although b/l LEs about 4/5 strength) Psychiatric: Orientation: + not alert (sleepy) and + not oriented x 3 Genitourinary: barboza in place, concentrated urine Lymphatic: no cervical lymphadenopathy Results & Data Vital Signs (Past 12 Hours) Vital Signs Temp Pulse Resp BP Pulse Ox 11/15/18 08:46 74 123/56 L 94 11/15/18 08:42 76 115/57 L 96 11/15/18 08:16 80 113/58 L 93 11/15/18 08:11 77 101/69 92 11/15/18 08:07 78 96/67 L 92 11/15/18 08:01 99/54 L 90 11/15/18 07:54 79 58/44 L 91 11/15/18 07:53 92 11/15/18 07:52 92 11/15/18 07:36 81 67/49 L 11/15/18 07:34 37.1 C 82 24 67/49 L 92 Laboratory Results Laboratory Results - last 24 hr 11/15/18 11/15/18 11/15/18 07:50 07:50 07:50 WBC 13.16 H RBC 4.03 L Hgb 10.2 L POC Hgb Hct 35.8 L POC Hct MCV 88.8 MCH 25.3 MCHC 28.5 L RDW Std Deviation 52.8 H RDW Coeff of Tamra 16.3 H Plt Count 277 MPV 9.4 Immature Gran % (Auto) 1.2 Neut % (Auto) 81.6 Lymph % (Auto) 7.8 [place] % (Auto) 9.0 Eos % (Auto) 0.2 Baso % (Auto) 0.2 Immature Gran # (Auto) 0.16 H Neut # (Auto) 10.74 H Lymph # (Auto) 1.02 L [place] # (Auto) 1.18 H Eos # (Auto) 0.03 Baso # (Auto) 0.03 ESR 85 H PT INR APTT PTT Ratio VBG pH VBG pCO2 VBG pO2 VBG HCO3 VBG O2 Saturation VBG Base Excess Barometric Pressure POC Sodium Sodium POC Potassium Potassium POC Chloride Chloride Carbon Dioxide POC Total CO2 Anion Gap POC Anion Gap POC BUN BUN Creatinine POC Creatinine Est Cr Clr Drug Dosing Est GFR ( Amer) Est GFR (Non-Af Amer) BUN/Creatinine Ratio Glucose POC Glucose POC Glucose (other) Lactate Calcium POC Ioniz Calcium Esau Magnesium Total Bilirubin AST ALT Alkaline Phosphatase Total Creatine Kinase CK-MB (CK-2) CK/CKMB % Calc Troponin I C-Reactive Protein Total Protein Albumin Globulin Albumin/Globulin Ratio Lipase Procalcitonin 0.30 Urine Color Urine Appearance Urine pH Ur Specific [place] Urine Protein Urine Glucose (UA) Urine Ketones Urine Blood Urine Nitrite Urine Bilirubin Urine Urobilinogen Ur Leukocyte Esterase Urine WBC (Auto) Urine RBC (Auto) U Hyaline Cast (Auto) U Epithel Cells (Auto) Urine Bacteria (Auto) Granular Casts Urine Yeast 11/15/18 11/15/18 11/15/18 07:50 07:50 07:50 WBC RBC Hgb POC Hgb Hct POC Hct MCV MCH MCHC RDW Std Deviation RDW Coeff of Tamra Plt Count MPV Immature Gran % (Auto) Neut % (Auto) Lymph % (Auto) [place] % (Auto) Eos % (Auto) Baso % (Auto) Immature Gran # (Auto) Neut # (Auto) Lymph # (Auto) [place] # (Auto) Eos # (Auto) Baso # (Auto) ESR PT 12.0 INR 1.2 H APTT 23.7 PTT Ratio 0.9 VBG pH VBG pCO2 VBG pO2 VBG HCO3 VBG O2 Saturation VBG Base Excess Barometric Pressure POC Sodium Sodium 137 POC Potassium Potassium 4.8 POC Chloride Chloride 92 L Carbon Dioxide 42 H* POC Total CO2 Anion Gap 5.0 POC Anion Gap POC BUN BUN 30 H Creatinine 1.88 H POC Creatinine Est Cr Clr Drug Dosing 55.6 Est GFR ( Amer) 32.6 Est GFR (Non-Af Amer) 28.1 BUN/Creatinine Ratio 15.9 Glucose 54 L POC Glucose POC Glucose (other) Lactate 2.2 H* Calcium 9.1 POC Ioniz Calcium Esau Magnesium 1.8 Total Bilirubin 0.9 AST 1259 H ALT 702 H Alkaline Phosphatase 70 Total Creatine Kinase CK-MB (CK-2) CK/CKMB % Calc Troponin I 0.199 H* C-Reactive Protein 4.74 H Total Protein 7.0 Albumin 3.0 L Globulin 4.0 Albumin/Globulin Ratio 0.7 L Lipase 24 L Procalcitonin Urine Color Urine Appearance Urine pH Ur Specific [place] Urine Protein Urine Glucose (UA) Urine Ketones Urine Blood Urine Nitrite Urine Bilirubin Urine Urobilinogen Ur Leukocyte Esterase Urine WBC (Auto) Urine RBC (Auto) U Hyaline Cast (Auto) U Epithel Cells (Auto) Urine Bacteria (Auto) Granular Casts Urine Yeast 11/15/18 11/15/18 11/15/18 07:50 07:50 07:51 WBC RBC Hgb POC Hgb 11.9 L Hct POC Hct 35 L MCV MCH MCHC RDW Std Deviation RDW Coeff of Tamra Plt Count MPV Immature Gran % (Auto) Neut % (Auto) Lymph % (Auto) [place] % (Auto) Eos % (Auto) Baso % (Auto) Immature Gran # (Auto) Neut # (Auto) Lymph # (Auto) [place] # (Auto) Eos # (Auto) Baso # (Auto) ESR PT INR APTT PTT Ratio VBG pH 7.33 L VBG pCO2 84 H VBG pO2 32 VBG HCO3 43 VBG O2 Saturation < 60.0 VBG Base Excess 13.9 Barometric Pressure 739.0 POC Sodium 137 Sodium POC Potassium 4.9 Potassium POC Chloride 85 L Chloride Carbon Dioxide POC Total CO2 > 40 H* Anion Gap POC Anion Gap 15.0 L POC BUN 30 H BUN Creatinine POC Creatinine 2.0 H Est Cr Clr Drug Dosing Est GFR ( Amer) Est GFR (Non-Af Amer) BUN/Creatinine Ratio Glucose POC Glucose POC Glucose (other) 59 L* Lactate Calcium POC Ioniz Calcium Esau 1.09 L Magnesium Total Bilirubin AST ALT Alkaline Phosphatase Total Creatine Kinase 30 CK-MB (CK-2) < 1.0 CK/CKMB % Calc TNP Troponin I C-Reactive Protein Total Protein Albumin Globulin Albumin/Globulin Ratio Lipase Procalcitonin Urine Color Urine Appearance Urine pH Ur Specific [place] Urine Protein Urine Glucose (UA) Urine Ketones Urine Blood Urine Nitrite Urine Bilirubin Urine Urobilinogen Ur Leukocyte Esterase Urine WBC (Auto) Urine RBC (Auto) U Hyaline Cast (Auto) U Epithel Cells (Auto) Urine Bacteria (Auto) Granular Casts Urine Yeast 11/15/18 11/15/18 11/15/18 07:55 07:58 08:20 WBC RBC Hgb POC Hgb Hct POC Hct MCV MCH MCHC RDW Std Deviation RDW Coeff of Tamra Plt Count MPV Immature Gran % (Auto) Neut % (Auto) Lymph % (Auto) [place] % (Auto) Eos % (Auto) Baso % (Auto) Immature Gran # (Auto) Neut # (Auto) Lymph # (Auto) [place] # (Auto) Eos # (Auto) Baso # (Auto) ESR PT INR APTT PTT Ratio VBG pH VBG pCO2 VBG pO2 VBG HCO3 VBG O2 Saturation VBG Base Excess Barometric Pressure POC Sodium Sodium POC Potassium Potassium POC Chloride Chloride Carbon Dioxide POC Total CO2 Anion Gap POC Anion Gap POC BUN BUN Creatinine POC Creatinine Est Cr Clr Drug Dosing Est GFR ( Amer) Est GFR (Non-Af Amer) BUN/Creatinine Ratio Glucose POC Glucose 59 L* 92 POC Glucose (other) Lactate Calcium POC Ioniz Calcium [place] Magnesium Total Bilirubin AST ALT Alkaline Phosphatase Total Creatine Kinase CK-MB (CK-2) CK/CKMB % Calc Troponin I C-Reactive Protein Total Protein Albumin Globulin Albumin/Globulin Ratio Lipase Procalcitonin Urine Color Dark Yellow Urine Appearance Turbid H Urine pH 5.0 Ur Specific [place] 1.024 Urine Protein 1+ H Urine Glucose (UA) Negative Urine Ketones Trace H Urine Blood 3+ H Urine Nitrite Positive H Urine Bilirubin 1+ H Urine Urobilinogen Positive H Ur Leukocyte Esterase 3+ H Urine WBC (Auto) >30 H Urine RBC (Auto) >30 H U Hyaline Cast (Auto) 10-30 H U Epithel Cells (Auto) >30 H Urine Bacteria (Auto) 1+ H Granular Casts 5-10 H Urine Yeast Not Reportable 11/15/18 08:53 WBC RBC Hgb POC Hgb Hct POC Hct MCV MCH MCHC RDW Std Deviation RDW Coeff of Tamra Plt Count MPV Immature Gran % (Auto) Neut % (Auto) Lymph % (Auto) [place] % (Auto) Eos % (Auto) Baso % (Auto) Immature Gran # (Auto) Neut # (Auto) Lymph # (Auto) [place] # (Auto) Eos # (Auto) Baso # (Auto) ESR PT INR APTT PTT Ratio VBG pH VBG pCO2 VBG pO2 VBG HCO3 VBG O2 Saturation VBG Base Excess Barometric Pressure POC Sodium Sodium POC Potassium Potassium POC Chloride Chloride Carbon Dioxide POC Total CO2 Anion Gap POC Anion Gap POC BUN BUN Creatinine POC Creatinine Est Cr Clr Drug Dosing Est GFR ( Amer) Est GFR (Non-Af Amer) BUN/Creatinine Ratio Glucose POC Glucose 83 POC Glucose (other) Lactate Calcium POC Ioniz Calcium [place] Magnesium Total Bilirubin AST ALT Alkaline Phosphatase Total Creatine Kinase CK-MB (CK-2) CK/CKMB % Calc Troponin I C-Reactive Protein Total Protein Albumin Globulin Albumin/Globulin Ratio Lipase Procalcitonin Urine Color Urine Appearance Urine pH Ur Specific [place] Urine Protein Urine Glucose (UA) Urine Ketones Urine Blood Urine Nitrite Urine Bilirubin Urine Urobilinogen Ur Leukocyte Esterase Urine WBC (Auto) Urine RBC (Auto) U Hyaline Cast (Auto) U Epithel Cells (Auto) Urine Bacteria (Auto) Granular Casts Urine Yeast Diagnostic Findings cxr - interstitial markings CT abd/pelvis - IMPRESSION: 1. The examination is significantly degraded by large body habitus and streak artifact from the body wall abutting the CT gantry. 2. Although the bladder is decompressed and a Barboza catheter, the imaging findings suggest cystitis. Correlation with clinical findings and urinalysis will be required. 3. Trace pleural effusions with bibasilar atelectasis. 4. Moderate constipation. 5. Marked hepatomegaly. 6. Splenomegaly. 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) use of insulin (2) HTN (hypertension) Hypertension type: essential hypertension Qualified Code(s): I10 - Essential (primary) hypertension (3) HLD (hyperlipidemia) Hyperlipidemia type: mixed hyperlipidemia Qualified Code(s): E78.2 - Mixed hyperlipidemia (4) COPD (chronic obstructive pulmonary disease) COPD type: unspecified COPD Qualified Code(s): J44.9 - Chronic obstructive pulmonary disease, unspecified (5) Respiratory failure, [id number] Respiratory failure complication: hypoxia and hypercapnia Qualified Code(s): J96.21 - Acute and chronic respiratory failure with hypoxia; J96.22 - Acute and chronic respiratory failure with hypercapnia
[2018-11-15 09:23] LABS: Creatine Kinase 30 U/L (26-192); Creatine Kinase MB < 1.0 ng/ml (0.5-3.6)
[2018-11-15 09:28] LABS: Basophils # (auto) 0.03 K/uL (0-0.2); Basophils % (auto) 0.2 %; Eosinophils # (auto) 0.03 K/uL (0-0.5); Eosinophils % (auto) 0.2 %; Immature Granulocytes # (auto) 0.16 K/uL (0.00-0.02); Immature Granulocytes % (auto) 1.2 %; Lymphocytes # (auto) 1.02 K/uL (1.2-3.4); Lymphocytes % (auto) 7.8 %; Monocytes # (auto) 1.18 K/uL (0.11-0.59); Neutrophils # (auto) 10.74 K/uL (1.4-6.5); Neutrophils % (auto) 81.6 %
[2018-11-15] MEDS ORDERED: SODIUM CHLORIDE 0.9% 1000ML 1,000 ML IV SCH (10:03)
[2018-11-15] MEDS ORDERED: SODIUM CHLORIDE 0.9% 1000ML 1,000 ML IV ONE (10:16)
[2018-11-15 11:53] LABS: Base Excess VBG 12.6 mEq/L; Oxygen Saturation VBG 74.1 %; pH VBG 7.29 (7.36-7.41)
[2018-11-15 12:38] LABS: Hepatitis B Surface Antigen Neg (Neg)
[2018-11-15] MEDS: AMMONIUM LACTATE 12% LOTION 225 GM BTL EXT SCH ×2 (13:03→22:14)
[2018-11-15] MEDS: D5W AND NSS 1,000 ML IV SCH ×2 (13:03→23:00)
[2018-11-15 13:07] LABS: Hepatitis C IgG 13Yrs+Old_Rflx Neg (Neg)
[2018-11-15 14:07] LABS: Base Excess VBG 12.8 mEq/L; pH VBG 7.27 (7.36-7.41)
[2018-11-15 14:16] LABS: INR 1.2 (0.9-1.1)
[2018-11-15 14:39] LABS: Albumin Level 2.8 gm/dl (3.4-5.0); Bilirubin Direct 0.4 mg/dl (0-0.2); Bilirubin,Total 0.8 mg/dl (0.2-1); Total Protein 6.7 gm/dl (6.4-8.2)
[2018-11-15] MEDS: NYSTATIN POWDER 15GM BTL EXT SCH ×2 (15:00→22:14)
[2018-11-15] MEDS: PIPERACILLIN/TAZOBACTAM 4.5 GM in DEXTROSE 5% 100 ML IV SCH ×2 (15:01→22:15)
[2018-11-15] MEDS: HEPARIN SOD 5,000 UNIT/0.5 ML VIAL SQ SCH ×2 (15:06→22:13)
[2018-11-15] MEDS ORDERED: LACTULOSE 200 GM, WATER, STERILE IRRIG 700 ML, BARCODE IDENTIFIER 1 EA PR STA (15:59)
[2018-11-15] MEDS ORDERED: PIPERACILLIN/TAZOBACTAM 3.375 GM in DEXTROSE 5% 100 ML IV SCH (16:00)
--- NOTE | 2018-11-15 18:28 | Ultrasound Report ---
US gallbladder HISTORY: Pain. Nausea. abnormal ast/alt, enlarged liver/spleen on CT COMPARISON: None. FINDINGS: Pancreas is normal ultrasonic. Fatty replacement of the liver. Gallbladder is distended. Small amount of gallbladder sludge. No shadowing gallstones. Common bile duct 4 mm. Right kidney is negative for hydronephrosis. IMPRESSION: 1. Fatty infiltration of liver. 2. Distended gallbladder with a small amount of gallbladder sludge. 3. Normal caliber bile ducts. The above report was generated using voice recognition software. It may contain grammatical, syntax or spelling errors. Electronically signed by: Anil Monae M.D. 11/15/2018 6:27 PM
[2018-11-15 20:03] LABS: Base Excess VBG 11.9 mEq/L; Oxygen Saturation VBG 85.4 %; pH VBG 7.34 (7.36-7.41)
[2018-11-15 20:12] LABS: BUN Creatinine Ratio 18.7 (10-20); Calcium 8.8 mg/dl (8.5-10.1); Est GFR (African American) 40.8; Est GFR (Non-African American) 35.2; Potassium 4.8 mmol/L (3.5-5.1)
[2018-11-15] MEDS ORDERED: MoRPHine SULFATE 2 MG/ML CARP IV PRN (21:01)
[2018-11-15] MEDS ORDERED: GLUCAGON FOR INJ 1 MG VIAL SQ PRN (21:55)
[2018-11-15] MEDS ORDERED: DEXTROSE 50% 50 ML SYRINGE IV PRN (21:55)
[2018-11-15] MEDS ORDERED: GLUCOSE 10 TABS/TUBE PO PRN (21:55)
[2018-11-15] MEDS ORDERED: GLUCOSE 40% GEL 15 GM TUBE PO PRN (21:55)
[2018-11-15] MEDS ORDERED: CARBOHYDRATES FOR HYPOGLYCEMIA PO PRN (21:55)
[2018-11-15] MEDS: FLUTICASONE/SALMETEROL 250/50 (ADVAIR) 14 PUFF/1 INHALER INH SCH (22:14)
[2018-11-16] MEDS: INSULIN ASPART 100 UNITS/ML 3 ML PEN SC SCH ×5 (00:37→20:17)
[2018-11-16] MEDS: D5W AND NSS 1,000 ML IV SCH (00:42)
[2018-11-16] MEDS: PIPERACILLIN/TAZOBACTAM 4.5 GM in DEXTROSE 5% 100 ML IV SCH ×3 (05:48→22:12)
[2018-11-16] MEDS: HEPARIN SOD 5,000 UNIT/0.5 ML VIAL SQ SCH ×3 (05:49→20:15)
[2018-11-16 06:28] LABS: Hematocrit (blood only) 34.5 % (37-47); Hemoglobin 9.7 g/dL (12.0-16.0); Mean Corpuscular Hgb Conc 28.1 g/dL (32-36); Mean Corpuscular Volume 88.2 fL (80-100); Mean Platelet Volume 9.4 fL (7.4-10.4); Nucleated RBC # (auto) 0.03 K/uL (0-0); Nucleated RBC % (auto) 0.3 %; Platelet Count 243 K/uL (130-400); RDW Coefficient of Variation 16.4 % (11.5-14.5); RDW Standard Deviation 52.2 fL (36.4-46.3); Red Blood Count 3.91 M/uL (4.2-5.4); White Blood Count 12.21 K/uL (4.8-10.8)
[2018-11-16 06:37] LABS: INR 1.2 (0.9-1.1)
[2018-11-16 07:04] LABS: Albumin Level 2.7 gm/dl (3.4-5.0); Calcium 9.1 mg/dl (8.5-10.1); Est GFR (Non-African American) 47.4; Potassium 4.4 mmol/L (3.5-5.1)
[2018-11-16 07:07] LABS: Albumin Globulin Ratio 0.7 (0.9-2); Bilirubin,Total 0.8 mg/dl (0.2-1); Globulin 3.9 gm/dl (2.5-4.0); Total Protein 6.6 gm/dl (6.4-8.2)
[2018-11-16] MEDS ORDERED: INSULIN ASPART 100 UNITS/ML 3 ML PEN SC SCH (07:30)
[2018-11-16] MEDS: FLUTICASONE/SALMETEROL 250/50 (ADVAIR) 14 PUFF/1 INHALER INH SCH ×2 (08:05→20:16)
[2018-11-16] MEDS: NYSTATIN POWDER 15GM BTL EXT SCH ×3 (08:06→20:14)
[2018-11-16] MEDS: AMMONIUM LACTATE 12% LOTION 225 GM BTL EXT SCH ×2 (08:06→20:14)
[2018-11-16] MEDS: TIOTROPIUM BROMIDE 5 PUFF/90 MCG INH INH SCH (08:07)
[2018-11-16] MEDS: CARVEDILOL 3.125 MG TAB PO SCH ×2 (11:23→20:14)
[2018-11-16] MEDS: LACTULOSE SYRUP 30 GM/45 ML UDP PO SCH (11:23)
[2018-11-16] MEDS: OXYCODONE HCL IR 5 MG TAB (IMMEDIATE RELEASE) PO SCH ×4 (11:24→22:12)
--- NOTE | 2018-11-16 12:04 | Gastrointestinal Consultation ---
Date of Consultation November 16, 2018 Assessment & Plan (1) Elevated LFTs: 63 year old female admitted w/ urinary sepsis, hypotension, fevers on Zosyn - GI asked to evaluate for elevated LFTs specifically AST/ALT w/ normal TB/ALK. Imaging w/ evidence of fatty liver, hepatosplenomegaly but no evidence of cirrhosis or biliary obstruction. She has mildly elevated INR w/ normal PLT count. DDX discussed: shock liver, viral hepatitis, DILI, fatty liver, liver fibrosis/cirrhosis etc. fatty liver and possible progression to cirrhosis/decompensated cirrhosis was discussed. All questions answered. - LFTs likely acutely elevated secondary to hypotension/infection/shock liver - Have been trending down - Acute Hep negative - Continue to trend LFTs daily - Would continue to monitor PLT and coags - Elevated ammonia, change in LOC w/o evidence of cirrhosis - Symptoms improved w/ Lactulose - Ammonia level now normalized - Has chronic constipation, can continue on Lactulose titrated to 2-3 BM daily pending pt tolerability of medication - Fatty liver - MELD labs - ABD US yearly - Dietary and lifestyle change to aid in weight loss was stressed - She ideally would be followed up in clinic w/ repeat MELD labs, repeat abd imaging and screening endoscopy to rule out varices given hepatosplenomegaly. She not only is very hesitant to move forward w/ any procedure requiring anesthesia secondary to her comorbidities but she also notes she is unable to travel to and from home for office appointments. Thank you for allowing us to participate in the care of this patient. Please call with any acute changes, questions or concerns. Please see addendum below with additional recommendation from my supervising physician. Present on Admission?: Yes Supervising Physician Co-Signing Physician Notes I have performed a history and physical examination of this patient and reviewed the electronic medical record. Specifically, on physical examination patient is alert and oriented, abdomen is non tender. I have discussed the case with SHAHIDA Lewis. The above note reflects my findings, conclusions, and recommendations. Hang Pedraza MD History of Present Illness Reason for Consultation: shock liver Requesting Physician: Jeannette Attending Physician: Tomi Machado History of Present Illness 63 year old female with history of morbid obesity, COPD w/ chronic hypoxia on continuous O2, T2DM on insulin pump, HTN who presented to [facility] w/ UTI, change in mental status admitted w/ urinary sepsis and shock - GI asked to evaluate for elevated LFTs. Pt was seen and evaluated, chart reviewed. Family at bedside. She notes she is bed-bound at baseline. Has regular visits from home health providers but is unable to travel for doctor appointments. Feels at baseline from GI standpoint. Denies any abd pain. No nausea, vomiting. Tolerating PO. No dysphagia. Has chronic constipation. Typically moves bowels once every 3/4 days. Denies any black or bloody stools. Has never been told she has liver problem in the past. Denies ETOH. TB: normal AST: 8 --> 1259 -->1129 --> 445 ALT: 6 --> 702 --> 635 -- > 537 ALKP: normal PLT: normal INR: normal ABD US: Fatty infiltration of liver. Distended gallbladder with a small amount of gallbladder sludge.Normal caliber bile ducts. CT: Liver: The unenhanced liver is markedly enlarged, measuring 31.2 cm in length. The liver is otherwise normal in contour and attenuation. There is no intrahepatic biliary ductal dilatation.Gallbladder: The gallbladder is distended but otherwise normal as imaged. Evaluation of the gallbladder is significantly degraded by streak artifact.Spleen: The spleen is enlarged, measuring 15.8 cm in length. Allergies Allergy/AdvReac Type Severity Reaction Status Date / Time No Known Allergies Allergy Unverified 11/15/18 08:22 Home Medications Home Medications Medication Instructions Recorded Confirmed Type atorvastatin [Lipitor] 10 mg PO HS 11/15/18 11/15/18 History betamethasone dipropionate 1 applic TOPICAL BID 11/15/18 11/15/18 History carvedilol 3.125 mg PO BID 11/15/18 11/15/18 History cholecalciferol (vitamin D3) 5,000 unit PO 3XWK 11/15/18 11/15/18 History [Vitamin D3] cyanocobalamin (vitamin B-12) 1,000 mcg IM Q30D 11/15/18 11/15/18 History diclofenac sodium 2 g TOPICAL QID PRN 11/15/18 11/15/18 History diphenhydramine HCl [Benadryl] 25 mg PO Q6H 11/15/18 11/15/18 History docusate sodium 100 mg PO BID 11/15/18 11/15/18 History ferrous sulfate 325 mg PO DAILY 11/15/18 11/15/18 History fluticasone propion-salmeterol 1 inh INHALATION BID 11/15/18 11/15/18 History [Advair Diskus] furosemide [Lasix] 40 mg PO BID 11/15/18 11/15/18 History gabapentin 100 mg PO TID 11/15/18 11/15/18 History gabapentin 600 mg PO TID 11/15/18 11/15/18 History insulin regular hum U-500 conc 0 unit SUBCUT DAILY 11/15/18 11/15/18 History [Humulin R U-500 (Conc) Insulin] ketoconazole 1 applic TOPICAL DAILY 11/15/18 11/15/18 History linaclotide [Linzess] 145 mcg PO DAILY 11/15/18 11/15/18 History metformin 850 mg PO TID 11/15/18 11/15/18 History naproxen 500 mg PO BID 11/15/18 11/15/18 History nitrofurantoin macrocrystal 50 mg PO HS 11/15/18 11/15/18 History nortriptyline 10 mg PO TID 11/15/18 11/15/18 History nystatin 1 applic TOPICAL PM 11/15/18 11/15/18 History omega 6-lfe-fcp-fish oil [[place]-3 1 cap PO BID 11/15/18 11/15/18 History Fish Oil] omeprazole magnesium [Prilosec OTC] 20 mg PO DAILY 11/15/18 11/15/18 History ondansetron HCl [Zofran] 4 mg PO Q6H PRN 11/15/18 11/15/18 History oxycodone 20 mg PO Q6H 11/15/18 11/15/18 History penicillin V potassium 500 mg PO QID 11/15/18 11/15/18 History tiotropium bromide [Spiriva with 1 cap INHALATION DAILY 11/15/18 11/15/18 History HandiHaler] Patient History Medical History COPD (chronic obstructive pulmonary disease) (Chronic) Chronic indwelling Garcia catheter (Chronic) Chronic respiratory failure with hypoxia and hypercapnia (Chronic) on home o2, 3 L continuously DM II (diabetes mellitus, type II), controlled (Chronic) HLD (hyperlipidemia) (Chronic) HTN (hypertension) (Chronic) Obesity hypoventilation syndrome (Chronic) Psoriasis (Chronic) Chronic pain syndrome 2nd to OA of knees; takes chronic opiates Morbid obesity with BMI of 60.0-69.9, adult Recurrent UTI (urinary tract infection) Surgical history unknown Social History Preferred Language: Uzbek Communication Ability: Effective Director Print Required: No Beliefs That Will Affect Care: None marital status details: Current Living Situation: Spouse Current Living Situation Comment: lives in [place] 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 Other Information That Helps Us Care for You: No Feels Safe at Home: Yes Safety Concerns: Feels Safe At This Time Smoking Status: Former smoker Tobacco Type: cigarettes packs per day: 1 Years Smoked: 35 Do You Dip or Chew Tobacco: No Smoking End Date: 2009 Second Hand Exposure: No Tobacco Cessation Education Requested by Patient: No Hx Alcohol Use: No Hx Substance Use: No Review of Systems Constitutional: no fever, no body aches, no weakness, no weight loss and no weight gain Respiratory: + dyspnea and + dyspnea on exertion; no cough, no hemoptysis, no snoring and no wheezing Cardiovascular: no chest pain, no radiating jaw, neck or arm pain, no dyspnea on exertion and no palpitations Gastrointestinal: no abdominal pain, no bloating, no early satiety, no heartburn, no nausea, no vomiting, no coffee ground emesis, no dysphagia, no change in bowel habits, no change in stools, no diarrhea/loose stools, no blood in stools and no melena Physical Exam Constitutional: well nourished and + morbidly obese; no acute distress Respiratory: no respiratory distress and no retractions Auscultation: + diminished lung sounds Cardiovascular: RRR, no murmur, no edema Gastrointestinal (Abdomen): Inspection/Auscultation: + abdomen distended and normal bowel sounds Percussion/Palpation: abdomen soft; abdomen nontender, no guarding and abdomen not rigid Skin: no rashes, warm and dry Results & Data Vital Signs (Past 12 Hours) Vital Signs Temp Pulse Pulse Pulse Resp BP Pulse Ox 11/16/18 07:40 37.1 C 72 18 153/66 H 99 11/16/18 07:31 70 16 99 11/16/18 03:09 37.2 C 74 20 153/53 H 95 Laboratory Results 11/16/18 11/16/18 11/16/18 Range/Units 06:19 06:19 06:18 WBC 12.21 H (4.8-10.8) K/uL RBC 3.91 L (4.2-5.4) M/uL Hgb 9.7 L (12.0-16.0) g/dL Hct 34.5 L (37-47) % MCV 88.2 (80-100) fL MCH 24.8 L (25-34) pg MCHC 28.1 L (32-36) g/dL RDW Std Deviation 52.2 H (36.4-46.3) fL RDW Coeff of Tamra 16.4 H (11.5-14.5) % Plt Count 243 (130-400) K/uL MPV 9.4 (7.4-10.4) fL Absolute Nucleated RBC 0.03 H (0-0) K/uL Nucleated RBC % (auto) 0.3 % PT 12.0 (9.0-12.0) Seconds INR 1.2 H (0.9-1.1) VBG pH (7.36-7.41) VBG pCO2 (38-50) mmHg VBG pO2 mmHg VBG HCO3 mmol/L VBG O2 Saturation % VBG Base Excess mEq/L Barometric Pressure mm/Hg Sodium (136-145) mmol/L Potassium (3.5-5.1) mmol/L Chloride (98-107) mmol/L Carbon Dioxide (21-32) mmol/L Anion Gap (3-11) BUN (7-18) mg/dl Creatinine (0.6-1.2) mg/dl Est Cr Clr Drug Dosing ml/min Est GFR ( Amer) Est GFR (Non-Af Amer) BUN/Creatinine Ratio (10-20) Glucose (70-99) mg/dl POC Glucose (70-99) Lactate (0.4-2.0) mmol/L Calcium (8.5-10.1) mg/dl Total Bilirubin (0.2-1) mg/dl Direct Bilirubin (0-0.2) mg/dl AST (15-37) U/L ALT (12-78) U/L Alkaline Phosphatase (45-117) U/L Ammonia 32.2 H (11-32) umol/L Troponin I (0-0.045) ng/ml Total Protein (6.4-8.2) gm/dl Albumin (3.4-5.0) gm/dl Globulin (2.5-4.0) gm/dl Albumin/Globulin Ratio (0.9-2) Hepatitis A IgM Ab (NON-REACTIVE) Hep Bs Antigen (Neg) Hep B Core IgM Ab (NON-REACTIVE) Hepatitis C Antibody (Neg) 11/16/18 11/16/18 11/16/18 Range/Units 06:18 05:46 00:12 WBC (4.8-10.8) K/uL RBC (4.2-5.4) M/uL Hgb (12.0-16.0) g/dL Hct (37-47) % MCV (80-100) fL MCH (25-34) pg MCHC (32-36) g/dL RDW Std Deviation (36.4-46.3) fL RDW Coeff of Tamra (11.5-14.5) % Plt Count (130-400) K/uL MPV (7.4-10.4) fL Absolute Nucleated RBC (0-0) K/uL Nucleated RBC % (auto) % PT (9.0-12.0) Seconds INR (0.9-1.1) VBG pH (7.36-7.41) VBG pCO2 (38-50) mmHg VBG pO2 mmHg VBG HCO3 mmol/L VBG O2 Saturation % VBG Base Excess mEq/L Barometric Pressure mm/Hg Sodium 138 (136-145) mmol/L Potassium 4.4 (3.5-5.1) mmol/L Chloride 95 L (98-107) mmol/L Carbon Dioxide 40 H (21-32) mmol/L Anion Gap 3.0 (3-11) BUN 23 H (7-18) mg/dl Creatinine 1.22 H D (0.6-1.2) mg/dl Est Cr Clr Drug Dosing 85.0 ml/min Est GFR ( Amer) 55.0 Est GFR (Non-Af Amer) 47.4 BUN/Creatinine Ratio 19.0 (10-20) Glucose 240 H (70-99) mg/dl POC Glucose 244 H 221 H (70-99) Lactate (0.4-2.0) mmol/L Calcium 9.1 (8.5-10.1) mg/dl Total Bilirubin 0.8 (0.2-1) mg/dl Direct Bilirubin (0-0.2) mg/dl AST 445 H (15-37) U/L ALT 537 H (12-78) U/L Alkaline Phosphatase 68 (45-117) U/L Ammonia (11-32) umol/L Troponin I (0-0.045) ng/ml Total Protein 6.6 (6.4-8.2) gm/dl Albumin 2.7 L (3.4-5.0) gm/dl Globulin 3.9 (2.5-4.0) gm/dl Albumin/Globulin Ratio 0.7 L (0.9-2) Hepatitis A IgM Ab (NON-REACTIVE) Hep Bs Antigen (Neg) Hep B Core IgM Ab (NON-REACTIVE) Hepatitis C Antibody (Neg) 11/15/18 11/15/18 11/15/18 Range/Units 21:25 19:44 19:44 WBC (4.8-10.8) K/uL RBC (4.2-5.4) M/uL Hgb (12.0-16.0) g/dL Hct (37-47) % MCV (80-100) fL MCH (25-34) pg MCHC (32-36) g/dL RDW Std Deviation (36.4-46.3) fL RDW Coeff of Tamra (11.5-14.5) % Plt Count (130-400) K/uL MPV (7.4-10.4) fL Absolute Nucleated RBC (0-0) K/uL Nucleated RBC % (auto) % PT (9.0-12.0) Seconds INR (0.9-1.1) VBG pH 7.34 L (7.36-7.41) VBG pCO2 77 H (38-50) mmHg VBG pO2 56 mmHg VBG HCO3 40 mmol/L VBG O2 Saturation 85.4 % VBG Base Excess 11.9 mEq/L Barometric Pressure 735.6 mm/Hg Sodium (136-145) mmol/L Potassium (3.5-5.1) mmol/L Chloride (98-107) mmol/L Carbon Dioxide (21-32) mmol/L Anion Gap (3-11) BUN (7-18) mg/dl Creatinine (0.6-1.2) mg/dl Est Cr Clr Drug Dosing ml/min Est GFR ( Amer) Est GFR (Non-Af Amer) BUN/Creatinine Ratio (10-20) Glucose (70-99) mg/dl POC Glucose 212 H (70-99) Lactate 1.2 (0.4-2.0) mmol/L Calcium (8.5-10.1) mg/dl Total Bilirubin (0.2-1) mg/dl Direct Bilirubin (0-0.2) mg/dl AST (15-37) U/L ALT (12-78) U/L Alkaline Phosphatase (45-117) U/L Ammonia (11-32) umol/L Troponin I (0-0.045) ng/ml Total Protein (6.4-8.2) gm/dl Albumin (3.4-5.0) gm/dl Globulin (2.5-4.0) gm/dl Albumin/Globulin Ratio (0.9-2) Hepatitis A IgM Ab (NON-REACTIVE) Hep Bs Antigen (Neg) Hep B Core IgM Ab (NON-REACTIVE) Hepatitis C Antibody (Neg) 11/15/18 11/15/18 11/15/18 Range/Units 19:44 19:44 16:48 WBC (4.8-10.8) K/uL RBC (4.2-5.4) M/uL Hgb (12.0-16.0) g/dL Hct (37-47) % MCV (80-100) fL MCH (25-34) pg MCHC (32-36) g/dL RDW Std Deviation (36.4-46.3) fL RDW Coeff of Tamra (11.5-14.5) % Plt Count (130-400) K/uL MPV (7.4-10.4) fL Absolute Nucleated RBC (0-0) K/uL Nucleated RBC % (auto) % PT (9.0-12.0) Seconds INR (0.9-1.1) VBG pH (7.36-7.41) VBG pCO2 (38-50) mmHg VBG pO2 mmHg VBG HCO3 mmol/L VBG O2 Saturation % VBG Base Excess mEq/L Barometric Pressure mm/Hg Sodium 136 (136-145) mmol/L Potassium 4.8 (3.5-5.1) mmol/L Chloride 93 L (98-107) mmol/L Carbon Dioxide 39 H (21-32) mmol/L Anion Gap 4.0 (3-11) BUN 29 H (7-18) mg/dl Creatinine 1.56 H D (0.6-1.2) mg/dl Est Cr Clr Drug Dosing 67.0 ml/min Est GFR ( Amer) 40.8 Est GFR (Non-Af Amer) 35.2 BUN/Creatinine Ratio 18.7 (10-20) Glucose 180 H (70-99) mg/dl POC Glucose 158 H (70-99) Lactate (0.4-2.0) mmol/L Calcium 8.8 (8.5-10.1) mg/dl Total Bilirubin (0.2-1) mg/dl Direct Bilirubin (0-0.2) mg/dl AST (15-37) U/L ALT (12-78) U/L Alkaline Phosphatase (45-117) U/L Ammonia (11-32) umol/L Troponin I 0.179 H* (0-0.045) ng/ml Total Protein (6.4-8.2) gm/dl Albumin (3.4-5.0) gm/dl Globulin (2.5-4.0) gm/dl Albumin/Globulin Ratio (0.9-2) Hepatitis A IgM Ab (NON-REACTIVE) Hep Bs Antigen (Neg) Hep B Core IgM Ab (NON-REACTIVE) Hepatitis C Antibody (Neg) 11/15/18 11/15/18 11/15/18 Range/Units 13:55 13:55 13:55 WBC (4.8-10.8) K/uL RBC (4.2-5.4) M/uL Hgb (12.0-16.0) g/dL Hct (37-47) % MCV (80-100) fL MCH (25-34) pg MCHC (32-36) g/dL RDW Std Deviation (36.4-46.3) fL RDW Coeff of Tamra (11.5-14.5) % Plt Count (130-400) K/uL MPV (7.4-10.4) fL Absolute Nucleated RBC (0-0) K/uL Nucleated RBC % (auto) % PT 12.0 (9.0-12.0) Seconds INR 1.2 H (0.9-1.1) VBG pH 7.27 L (7.36-7.41) VBG pCO2 95 H (38-50) mmHg VBG pO2 45 mmHg VBG HCO3 43 mmol/L VBG O2 Saturation 72.0 % VBG Base Excess 12.8 mEq/L Barometric Pressure 737.4 mm/Hg Sodium (136-145) mmol/L Potassium (3.5-5.1) mmol/L Chloride (98-107) mmol/L Carbon Dioxide (21-32) mmol/L Anion Gap (3-11) BUN (7-18) mg/dl Creatinine (0.6-1.2) mg/dl Est Cr Clr Drug Dosing ml/min Est GFR ( Amer) Est GFR (Non-Af Amer) BUN/Creatinine Ratio (10-20) Glucose (70-99) mg/dl POC Glucose (70-99) Lactate (0.4-2.0) mmol/L Calcium (8.5-10.1) mg/dl Total Bilirubin 0.8 (0.2-1) mg/dl Direct Bilirubin 0.4 H (0-0.2) mg/dl AST 1129 H (15-37) U/L ALT 635 H (12-78) U/L Alkaline Phosphatase 64 (45-117) U/L Ammonia (11-32) umol/L Troponin I (0-0.045) ng/ml Total Protein 6.7 (6.4-8.2) gm/dl Albumin 2.8 L (3.4-5.0) gm/dl Globulin (2.5-4.0) gm/dl Albumin/Globulin Ratio (0.9-2) Hepatitis A IgM Ab (NON-REACTIVE) Hep Bs Antigen (Neg) Hep B Core IgM Ab (NON-REACTIVE) Hepatitis C Antibody (Neg) 11/15/18 11/15/18 11/15/18 Range/Units 11:36 11:36 11:36 WBC (4.8-10.8) K/uL RBC (4.2-5.4) M/uL Hgb (12.0-16.0) g/dL Hct (37-47) % MCV (80-100) fL MCH (25-34) pg MCHC (32-36) g/dL RDW Std Deviation (36.4-46.3) fL RDW Coeff of Tamra (11.5-14.5) % Plt Count (130-400) K/uL MPV (7.4-10.4) fL Absolute Nucleated RBC (0-0) K/uL Nucleated RBC % (auto) % PT (9.0-12.0) Seconds INR (0.9-1.1) VBG pH (7.36-7.41) VBG pCO2 (38-50) mmHg VBG pO2 mmHg VBG HCO3 mmol/L VBG O2 Saturation % VBG Base Excess mEq/L Barometric Pressure mm/Hg Sodium (136-145) mmol/L Potassium (3.5-5.1) mmol/L Chloride (98-107) mmol/L Carbon Dioxide (21-32) mmol/L Anion Gap (3-11) BUN (7-18) mg/dl Creatinine (0.6-1.2) mg/dl Est Cr Clr Drug Dosing ml/min Est GFR ( Amer) Est GFR (Non-Af Amer) BUN/Creatinine Ratio (10-20) Glucose (70-99) mg/dl POC Glucose (70-99) Lactate 2.2 H* (0.4-2.0) mmol/L Calcium (8.5-10.1) mg/dl Total Bilirubin (0.2-1) mg/dl Direct Bilirubin (0-0.2) mg/dl AST (15-37) U/L ALT (12-78) U/L Alkaline Phosphatase (45-117) U/L Ammonia 52.0 H (11-32) umol/L Troponin I (0-0.045) ng/ml Total Protein (6.4-8.2) gm/dl Albumin (3.4-5.0) gm/dl Globulin (2.5-4.0) gm/dl Albumin/Globulin Ratio (0.9-2) Hepatitis A IgM Ab NON-REACTIVE (NON-REACTIVE) Hep Bs Antigen (Neg) Hep B Core IgM Ab NON-REACTIVE (NON-REACTIVE) Hepatitis C Antibody (Neg) 11/15/18 Range/Units 11:36 WBC (4.8-10.8) K/uL RBC (4.2-5.4) M/uL Hgb (12.0-16.0) g/dL Hct (37-47) % MCV (80-100) fL MCH (25-34) pg MCHC (32-36) g/dL RDW Std Deviation (36.4-46.3) fL RDW Coeff of Tamra (11.5-14.5) % Plt Count (130-400) K/uL MPV (7.4-10.4) fL Absolute Nucleated RBC (0-0) K/uL Nucleated RBC % (auto) % PT (9.0-12.0) Seconds INR (0.9-1.1) VBG pH (7.36-7.41) VBG pCO2 (38-50) mmHg VBG pO2 mmHg VBG HCO3 mmol/L VBG O2 Saturation % VBG Base Excess mEq/L Barometric Pressure mm/Hg Sodium (136-145) mmol/L Potassium (3.5-5.1) mmol/L Chloride (98-107) mmol/L Carbon Dioxide (21-32) mmol/L Anion Gap (3-11) BUN (7-18) mg/dl Creatinine (0.6-1.2) mg/dl Est Cr Clr Drug Dosing ml/min Est GFR ( Amer) Est GFR (Non-Af Amer) BUN/Creatinine Ratio (10-20) Glucose (70-99) mg/dl POC Glucose (70-99) Lactate (0.4-2.0) mmol/L Calcium (8.5-10.1) mg/dl Total Bilirubin (0.2-1) mg/dl Direct Bilirubin (0-0.2) mg/dl AST (15-37) U/L ALT (12-78) U/L Alkaline Phosphatase (45-117) U/L Ammonia (11-32) umol/L Troponin I (0-0.045) ng/ml Total Protein (6.4-8.2) gm/dl Albumin (3.4-5.0) gm/dl Globulin (2.5-4.0) gm/dl Albumin/Globulin Ratio (0.9-2) Hepatitis A IgM Ab (NON-REACTIVE) Hep Bs Antigen Neg (Neg) Hep B Core IgM Ab (NON-REACTIVE) Hepatitis C Antibody Neg (Neg)
[2018-11-16] MEDS ORDERED: INSULIN GLARGINE SOLOSTAR 100 UNITS/ML 3 ML PEN SC SCH (12:15)
--- NOTE | 2018-11-16 13:20 | XRay Report ---
XR hand RT min 3V routine CLINICAL HISTORY: psoriasis; eval for signs of psoriatic arthritis COMPARISON: None. DISCUSSION: Minimal degenerative change. Slight periarticular osteopenia. No acute bony abnormality. Generalized soft tissue edematous change. IMPRESSION: 1. Generalized soft tissue edematous change. 2. Minimal degenerative osseous change. The above report was generated using voice recognition software. It may contain grammatical, syntax or spelling errors. Electronically signed by: Anil Monae M.D. 11/16/2018 1:18 PM
--- NOTE | 2018-11-16 13:36 | XRay Report ---
XR hand LT min 3V routine HISTORY: 63 years-old Female psoriasis; eval for signs of psoriatic arthritis history of inflammator y arthropathy COMPARISON: Right hand radiographs of same day TECHNIQUE: 3 views of the left hand FINDINGS: Demineralized appearance of the bones. Mild to moderate radiocarpal with moderate first carpometacarp al and mild to moderate metacarpal phalangeal and interphalangeal osteoarthritis. No erosive arthropa thy, acute fracture or dislocation. Soft tissue prominence throughout the hand, wrist and distal fore arm. IMPRESSION: 1. No acute fracture, dislocation or erosive arthropathy. 2. Demineralized appearance of the bones with osteoarthritis as above. The above report was generated using voice recognition software. It may contain grammatical, syntax o r spelling errors. Electronically signed by: Dennis Fonseca M.D. 11/16/2018 1:34 PM
--- NOTE | 2018-11-16 18:50 | Hospitalist Progress Note ---
Date of Service November 16, 2018 Assessment & Plan (1) Severe sepsis: 2nd to GNR UTI. Was recently treated for proteus and VRE UTI through the [facility] prior to admission. Remains on zosyn. Blood cx's thus far negative. Lactates have normalized, Cr has improved, mentation is better, and BPs have normalized. Overall doing nicely. Present on Admission?: Yes (2) Sepsis secondary to UTI: as above in "severe sepsis" will need barboza exchanged this admission (last exchange 11/05/18). (3) ATN (acute tubular necrosis): HOLLY 2nd to sepsis-associated ATN. casts seen on u/a c/w ATN. IMPROVED. Supportive care. Barboza. Repeat BMP am. (4) Respiratory failure, [id number]: acute component resolved. back to NC 3 L which is home amount. continue BIPAP at HS for ZACKARY (was previously on BIPAP at home for ZACKARY in past but stopped using it). will need repeat sleep study as outpatient. chronic respiratory failure 2nd to obesity-hypoventilation syndrome, ?COPD, etc. (5) Metabolic encephalopathy: 2nd to sepsis, elevated ammonia, and hypercarbia. resolved. (6) Acute hepatitis: concerning for "shock" liver. infectious hepatitis thus far ruling out (hep A,B,C negative). RUQ u/s without biliary obstruction. INR stable. [facility] consult appreciated. AST and ALT continue to improve. LFTs in am. Enlarged liver and spleen on imaging suggestive of chronic liver disease (early JUDGE?). (7) DM II (diabetes mellitus, type II), controlled: start lantus 25 units BID adjust novolog T2DM diet (8) HTN (hypertension): resume coreg BID (9) HLD (hyperlipidemia): Cont to hold statin due to elevated ast/alt. (10) Chronic respiratory failure with hypoxia and hypercapnia: 2nd to ZACKARY, OHS, COPD. On home O2 3 L continuously. Cont BIPAP HS. (11) Morbid obesity with BMI of 60.0-69.9, adult: BMI 65 (12) Obesity hypoventilation syndrome: (13) Chronic indwelling Barboza catheter: Reason? neurogenic from l-spine issues? neurogenic from diabetic neuropathy? other?? needs barboza exchanged this admission. consider voiding trial?? (14) Psoriasis: severe. continue topical treatments. hand x-rays w/o erosive changes which would argue against psoriatic arthritis. check TSH in am. (15) COPD (chronic obstructive pulmonary disease): w/o exacerbation cont advair and spiriva (16) Chronic pain syndrome: resume oxycodone 20mg q6h (home dosing scheme). (17) HOLLY (acute kidney injury): 2nd ATN - see above. resolving nicely. can likely stop fluids today. (18) Hypoglycemia: resolved. 2nd to severe sepsis. (19) Ambulatory dysfunction: Bedbound at home x 1 year. PT, OT. SNF placement? (20) Elevated troponin: Myocardial demand ischemia in setting of sepsis. No anginal symptoms. (21) DVT prophylaxis: heparin q8h and daughter updated at bedside Subjective patient feels much better today. wide awake, alert. family pleased with progress. patient's daughter states that her insulin pump is as follows - 1.65 u/hour from 12am to 4am 1.85 u/hour from 4am to 12noon 1.65 u/hour from 12noon to 12am has not seen any provider for this in some time she complains of joint pains "all over" handgrip is poor b/l due to joint pains and swelling denies any dyspnea today appetite improved mentions she has had long-standing nausea with eating for long time (years) has been diabetic for 10-20 years Review of Systems Constitutional: + fatigue; no fever, no chills and no anorexia Ear, Nose, Mouth, Throat: no dysphagia Respiratory: no cough and no dyspnea Cardiovascular: no chest pain Gastrointestinal: + bloating and + nausea; no abdominal pain and no vomiting Integumentary: + rash (extensive - psoriasis ) Physical Exam Constitutional: + morbidly obese; no acute distress looks much better today ENMT: Mouth: oral mucous membranes not dry Neck: trachea midline, no thyromegaly Respiratory: no respiratory distress Auscultation: + diminished lung sounds (bases); no crackles, no rhonchi and no wheezes Cardiovascular: Rate/Rhythm: regular rate and regular rhythm Heart Sounds: normal S1 and normal S2 Vessels: posterior tibial pulses present and dorsalis pedis pulses present; no JVD Extremities: + edema (<1 + b/l) Gastrointestinal (Abdomen): Inspection/Auscultation: + abdomen distended Percussion/Palpation: + hepatomegaly and + hernia (midline- reducible (vs diasthesis recti)); abdomen nontender, no guarding and abdomen not rigid Musculoskeletal: b/l hands with generalized swelling and some synovitis of small joints of hands Skin: extensive psoriatic patches and plaques on flanks, legs, arms, back etc Neurologic: no asterixis Psychiatric: A+Ox3, euthymic affect Results & Data Vital Signs (Past 12 Hours) Vital Signs Temp Pulse Pulse Resp BP Pulse Ox 11/16/18 15:29 36.8 C 71 20 131/64 95 11/16/18 12:10 36.8 C 66 19 105/61 95 11/16/18 07:40 37.1 C 72 18 153/66 H 99 11/16/18 07:31 70 16 99 Laboratory Results Laboratory Results - last 24 hr 11/15/18 11/15/18 11/15/18 11:36 19:44 19:44 WBC RBC Hgb Hct MCV MCH MCHC RDW Std Deviation RDW Coeff of Tamra Plt Count MPV Absolute Nucleated RBC Nucleated RBC % (auto) PT INR VBG pH VBG pCO2 VBG pO2 VBG HCO3 VBG O2 Saturation VBG Base Excess Barometric Pressure Sodium 136 Potassium 4.8 Chloride 93 L Carbon Dioxide 39 H Anion Gap 4.0 BUN 29 H Creatinine 1.56 H D Est Cr Clr Drug Dosing 67.0 Est GFR ( Amer) 40.8 Est GFR (Non-Af Amer) 35.2 BUN/Creatinine Ratio 18.7 Glucose 180 H POC Glucose Lactate Calcium 8.8 Total Bilirubin AST ALT Alkaline Phosphatase Ammonia Troponin I 0.179 H* Total Protein Albumin Globulin Albumin/Globulin Ratio Hepatitis A IgM Ab NON-REACTIVE Hep B Core IgM Ab NON-REACTIVE 11/15/18 11/15/18 11/15/18 19:44 19:44 21:25 WBC RBC Hgb Hct MCV MCH MCHC RDW Std Deviation RDW Coeff of Tamra Plt Count MPV Absolute Nucleated RBC Nucleated RBC % (auto) PT INR VBG pH 7.34 L VBG pCO2 77 H VBG pO2 56 VBG HCO3 40 VBG O2 Saturation 85.4 VBG Base Excess 11.9 Barometric Pressure 735.6 Sodium Potassium Chloride Carbon Dioxide Anion Gap BUN Creatinine Est Cr Clr Drug Dosing Est GFR ( Amer) Est GFR (Non-Af Amer) BUN/Creatinine Ratio Glucose POC Glucose 212 H Lactate 1.2 Calcium Total Bilirubin AST ALT Alkaline Phosphatase Ammonia Troponin I Total Protein Albumin Globulin Albumin/Globulin Ratio Hepatitis A IgM Ab Hep B Core IgM Ab 11/16/18 11/16/18 11/16/18 00:12 05:46 06:18 WBC RBC Hgb Hct MCV MCH MCHC RDW Std Deviation RDW Coeff of Tamra Plt Count MPV Absolute Nucleated RBC Nucleated RBC % (auto) PT INR VBG pH VBG pCO2 VBG pO2 VBG HCO3 VBG O2 Saturation VBG Base Excess Barometric Pressure Sodium 138 Potassium 4.4 Chloride 95 L Carbon Dioxide 40 H Anion Gap 3.0 BUN 23 H Creatinine 1.22 H D Est Cr Clr Drug Dosing 85.0 Est GFR ( Amer) 55.0 Est GFR (Non-Af Amer) 47.4 BUN/Creatinine Ratio 19.0 Glucose 240 H POC Glucose 221 H 244 H Lactate Calcium 9.1 Total Bilirubin 0.8 AST 445 H ALT 537 H Alkaline Phosphatase 68 Ammonia Troponin I Total Protein 6.6 Albumin 2.7 L Globulin 3.9 Albumin/Globulin Ratio 0.7 L Hepatitis A IgM Ab Hep B Core IgM Ab 11/16/18 11/16/18 11/16/18 06:18 06:19 06:19 WBC 12.21 H RBC 3.91 L Hgb 9.7 L Hct 34.5 L MCV 88.2 MCH 24.8 L MCHC 28.1 L RDW Std Deviation 52.2 H RDW Coeff of Tamra 16.4 H Plt Count 243 MPV 9.4 Absolute Nucleated RBC 0.03 H Nucleated RBC % (auto) 0.3 PT 12.0 INR 1.2 H VBG pH VBG pCO2 VBG pO2 VBG HCO3 VBG O2 Saturation VBG Base Excess Barometric Pressure Sodium Potassium Chloride Carbon Dioxide Anion Gap BUN Creatinine Est Cr Clr Drug Dosing Est GFR ( Amer) Est GFR (Non-Af Amer) BUN/Creatinine Ratio Glucose POC Glucose Lactate Calcium Total Bilirubin AST ALT Alkaline Phosphatase Ammonia 32.2 H Troponin I Total Protein Albumin Globulin Albumin/Globulin Ratio Hepatitis A IgM Ab Hep B Core IgM Ab 11/16/18 11/16/18 12:07 16:30 WBC RBC Hgb Hct MCV MCH MCHC RDW Std Deviation RDW Coeff of Tamra Plt Count MPV Absolute Nucleated RBC Nucleated RBC % (auto) PT INR VBG pH VBG pCO2 VBG pO2 VBG HCO3 VBG O2 Saturation VBG Base Excess Barometric Pressure Sodium Potassium Chloride Carbon Dioxide Anion Gap BUN Creatinine Est Cr Clr Drug Dosing Est GFR ( Amer) Est GFR (Non-Af Amer) BUN/Creatinine Ratio Glucose POC Glucose 260 H 230 H Lactate Calcium Total Bilirubin AST ALT Alkaline Phosphatase Ammonia Troponin I Total Protein Albumin Globulin Albumin/Globulin Ratio Hepatitis A IgM Ab Hep B Core IgM Ab (1) Respiratory failure, [id number] Respiratory failure complication: hypoxia and hypercapnia Qualified Code(s): J96.21 - Acute and chronic respiratory failure with hypoxia; J96.22 - Acute and chronic respiratory failure with hypercapnia (2) HLD (hyperlipidemia) Hyperlipidemia type: mixed hyperlipidemia Qualified Code(s): E78.2 - Mixed hyperlipidemia (3) DM II (diabetes mellitus, type II), controlled Diabetes mellitus complication status: with hypoglycemia Diabetes mellitus jail insulin use: with terminal superintendent use Qualified Code(s): E11.649 - Type 2 diabetes mellitus with hypoglycemia without coma; Z79.4 - superintendent container terminal (current) use of insulin (4) COPD (chronic obstructive pulmonary disease) COPD type: unspecified COPD Qualified Code(s): J44.9 - Chronic obstructive pulmonary disease, unspecified (5) HTN (hypertension) Hypertension type: essential hypertension Qualified Code(s): I10 - Essential (primary) hypertension
[2018-11-16] MEDS: GABAPENTIN 300 MG CAP PO SCH (20:13)
[2018-11-16] MEDS: INSULIN GLARGINE SOLOSTAR 100 UNITS/ML 3 ML PEN SC SCH (20:17)
[2018-11-17 05:58] LABS: Hematocrit (blood only) 33.2 % (37-47); Hemoglobin 9.6 g/dL (12.0-16.0); Mean Corpuscular Hgb Conc 28.9 g/dL (32-36); Mean Corpuscular Volume 86.9 fL (80-100); Mean Platelet Volume 9.7 fL (7.4-10.4); Platelet Count 260 K/uL (130-400); RDW Coefficient of Variation 16.4 % (11.5-14.5); RDW Standard Deviation 51.6 fL (36.4-46.3); Red Blood Count 3.82 M/uL (4.2-5.4); White Blood Count 11.46 K/uL (4.8-10.8)
[2018-11-17 06:29] LABS: Albumin Level 2.7 gm/dl (3.4-5.0); BUN Creatinine Ratio 17.5 (10-20); Bilirubin Direct 0.2 mg/dl (0-0.2); Est GFR (African American) 71.7; Est GFR (Non-African American) 61.8; Potassium 3.9 mmol/L (3.5-5.1)
[2018-11-17] MEDS: HEPARIN SOD 5,000 UNIT/0.5 ML VIAL SQ SCH ×3 (06:33→21:27)
[2018-11-17] MEDS: PIPERACILLIN/TAZOBACTAM 4.5 GM in DEXTROSE 5% 100 ML IV SCH (06:34)
[2018-11-17 06:35] LABS: Estimated Average Glucose 105 mg/dl; Hemoglobin A1C 5.3 % (4.5-5.6)
[2018-11-17 06:50] LABS: Bilirubin,Total 0.5 mg/dl (0.2-1); Ferritin 26.1 ng/ml (8-388); Total Protein 6.8 gm/dl (6.4-8.2)
[2018-11-17] MEDS: OXYCODONE HCL IR 5 MG TAB (IMMEDIATE RELEASE) PO SCH ×4 (08:46→21:20)
[2018-11-17] MEDS: INSULIN GLARGINE SOLOSTAR 100 UNITS/ML 3 ML PEN SC SCH ×2 (08:50→21:28)
[2018-11-17] MEDS: INSULIN ASPART 100 UNITS/ML 3 ML PEN SC SCH ×4 (08:50→21:27)
[2018-11-17] MEDS: FLUTICASONE/SALMETEROL 250/50 (ADVAIR) 14 PUFF/1 INHALER INH SCH ×2 (08:57→21:23)
[2018-11-17] MEDS: LACTULOSE SYRUP 30 GM/45 ML UDP PO SCH (08:58)
[2018-11-17] MEDS: AMMONIUM LACTATE 12% LOTION 225 GM BTL EXT SCH ×2 (08:59→21:23)
[2018-11-17] MEDS: NYSTATIN POWDER 15GM BTL EXT SCH ×3 (09:00→21:45)
[2018-11-17] MEDS: CARVEDILOL 3.125 MG TAB PO SCH ×2 (09:01→21:22)
[2018-11-17] MEDS: GABAPENTIN 300 MG CAP PO SCH ×3 (09:01→21:22)
[2018-11-17] MEDS: TIOTROPIUM BROMIDE 5 PUFF/90 MCG INH INH SCH (09:02)
[2018-11-17 09:17] LABS: Folate (Folic Acid) 4.86 ng/ml (>5.38)
[2018-11-17] MEDS: ONDANSETRON INJ 2 MG/ML 2 ML VIAL IV PRN ×2 (10:07→17:19)
--- NOTE | 2018-11-17 11:22 | Gastroenterology Progress Note ---
Date of Service November 17, 2018 Assessment & Plan (1) Elevated LFTs: 63 year old female admitted w/ urinary sepsis, hypotension, fevers. Elevated LFTs most likely caused by shock liver and are improving as her UTI sepsis is improving. She also has fatty liver, w/o evidence of cirrhosis on imaging thus LFTs may not resolve to baseline. Will need OP GI f/u for fatty liver with plan for fibroscan, repeat abd imaing and possibly screening EGD to rule out varices given hepatosplenomegaly, fatty liver and low platelets. Also: Elevated ammonia, change in LOC w/o evidence of cirrhosis. Because chronic constipation, would continue Lactulose and titrate to 2-3 BM daily pending pt tolerability of medication. GI will sign off. Supervising Physician Co-Signing Physician Notes I saw and evaluated the patient. We were consulted for evaluation of ischemic hepatitis. The liver enzymes appeared to be improving consistently. Please call with any additional questions or concerns during the remainder of the hospital admission. The patient can certainly follow up with Dr. Pedraza as an outpatient for any further needs or questions. Subjective Ms. Joellen Ayoub is a 63 yr old female with COPD, ZACKARY, DM-2, Htn, HLD who presented on 11/15 with lethargy and was admitted to [facility] with UTI sepsis, ARF and GI was consulted for elevated LFTs, though secondary to shock liver, has fatty liver but no evidence of cirrhosis. Elevated ammonia is resolved. LFTs have been improving since arrival: AST 1129->112; ALT 702->345; T Bili and Alk Phos have remained normal. Review of Systems Review of Systems: ROS: Gen: + weakness, no fevers, weight loss Eyes: No eye redness, or pain, no recent vision changes Resp: No SOB, no cough Cardio: No palpitations/irregular beats, no chest pain GI: + lower abdominal pain (much improved), no nausea/vomiting : Denies pain on urination Skin: No jaundice, itching or new rashes Constitutional: +weakness, weight loss, denies fevers Eyes: No eye redness, no impaired vision or double vision Results & Data Vital Signs (Past 12 Hours) Vital Signs Temp Pulse Pulse Resp BP Pulse Ox 11/17/18 07:05 36.8 C 71 18 155/63 H 91 11/17/18 03:49 36.6 C 69 18 141/56 H 95 11/17/18 00:00 36.8 C 69 69 20 127/61 98 11/16/18 23:59 72
[2018-11-17] MEDS: FERROUS SULFATE 325 MG TAB PO SCH ×2 (11:46→17:19)
[2018-11-17] MEDS: PANTOprazole 40 MG TAB PO SCH (11:46)
[2018-11-17] MEDS: FOLIC ACID 1 MG TAB PO SCH (11:47)
[2018-11-17] MEDS ORDERED: FUROSEMIDE 40 MG TAB PO ONE ×2 (14:24→19:36)
--- NOTE | 2018-11-17 15:45 | Pharmacy Report ---
Pharmacy Glycemic Rec 1 - Date of Service November 17, 2018 - Scope Glycemic Pharmacist to provide recommendations to improve glycemic control (all ICU patients are screened for hyperglycemia and treatment recommendations are provided per protocol). Pt identified with hyperglycemia (BSG above 180) while admitted to [facility] ([facility]). - Subjective The patient is a 63 year old F admitted on 11/15/18 10:03 for SEVERE SEPSIS, UTI, ACUTE/CHRONIC . Patient's past medical history is significant for type 2 diabetes mellitus. - Objective Accuchecks BSG (last 24hrs):: 11/16/18 11/16/18 11/17/18 16:30 20:04 05:17 Glucose 241 H POC Glucose 230 H 244 H 11/17/18 11/17/18 07:27 11:17 Glucose POC Glucose 256 H 242 H Laboratory Data (last 24hrs):: 11/17/18 11/17/18 11/17/18 05:17 05:17 05:17 WBC 11.46 H Sodium 133 L Potassium 3.9 Anion Gap 1.0 L BUN 17 Creatinine 0.98 BUN/Creatinine Ratio 17.5 Hemoglobin A1c 5.3 - Recent Pertinent Medications Outpatient Anti-diabetic Regimen: * U-500 Regular insulin: up to 350 units per day via insulin pump * Metformin 850mg PO TID w/ meals * A1c = 5.3% 11/17/18 The patient is currently receiving: * Basal Insulin: Lantus 35 units every 12 hours * Correctional Insulin: Novolog Correction per scale ACHS Goal Range: Low 120 mg/dL - High 160 mg/dL Correction Factor: 6 mg/dL/unit * Prandial Insulin: Per carb ratio of 1 unit per 2 grams CHO consumed Risk Factors for Insulin Resistance: * Infection: UTI - Assessment & Plan ASSESSMENT: * Highly insulin resistant type 2 diabetic known to glycemic control service from prior admission * BSGs elevated > 200 for > 24 hrs at this time * Current basal insulin dose is much less than patient required in the past. * We do stock U-500 insulin and have utilized this therapy in the past while hospitalized. * Would recommend the following changes based upon prior admission data: RECOMMEND: * U-500 Regular insulin: 110 units w/ breakfast + 90 units with dinner * Changing correction factor 5 mg/dl/unit * Changing carb ratio 1 unit per -- grams CHO consumed (no carb coverage as U500 provides coverage w/ meals) * Changing goal range Low 120 mg/dL - High 150 mg/dL Pharmacy will continue to provide recommendations in EMR while patient admitted to 1E/2E. Physicians may request pharmacy to continue to follow patient when transferred out of the ICU and/or consult pharmacy to write glycemic control orders * Please note that the plan above was derived based on current level of insulin resistance and hospital stress. These recommendations are appropriate for inpatient admission only. Plan of care upon discharge will need to be reassessed to avoid potential outpatient hypo/hyperglycemia. Thank you.
[2018-11-17] MEDS: DICLOFENAC SOD 1% GEL 100 GM TUBE EXT SCH ×2 (17:20→21:20)
[2018-11-17] MEDS ORDERED: FUROSEMIDE 40 MG in SYRINGE 0 ML IV ONE (20:00)
--- NOTE | 2018-11-17 21:18 | Hospitalist Progress Note ---
Date of Service November 17, 2018 Assessment & Plan (1) Severe sepsis: 2nd to pseudomonas UTI. Was recently treated for proteus and VRE UTI through the [facility] prior to admission. These pathogens have not grown again on admission urine cx. Remains on zosyn. Stop zosyn; change to PO cipro 500 BID. Plan 7-10 day course. Blood cx's thus far negative. sepsis fully resolved. (2) Sepsis secondary to UTI: as above in "severe sepsis" will need barboza exchanged this admission (last exchange 11/05/18). thus, UTI is catheter-associated UTI / complicated UTI (3) ATN (acute tubular necrosis): HOLLY 2nd to sepsis-associated ATN. casts seen on u/a c/w ATN. resolved. bmp am. can resume chronic lasix 40mg BID. (4) Respiratory failure, [id number]: acute component resolved. back to NC 3 L which is home amount. continue BIPAP at HS for ZACKARY (was previously on BIPAP at home for ZACKARY in past but stopped using it). will need repeat sleep study as outpatient. chronic respiratory failure 2nd to obesity-hypoventilation syndrome, ?COPD, etc. (5) Metabolic encephalopathy: 2nd to sepsis, elevated ammonia, and hypercarbia. resolved. (6) Acute hepatitis: concerning for "shock" liver. infectious hepatitis (hep A/B/C) negative. RUQ u/s without biliary obstruction. INR stable. [facility] consult appreciated. AST and ALT continue to improve. LFTs in am. Enlarged liver and spleen on imaging suggestive of chronic liver disease (early JUDGE?). will need outpatient f/u with [facility] for surveillance. (7) DM II (diabetes mellitus, type II), controlled: titrate lantus to 35 units BID adjust novolog once again T2DM diet (8) HTN (hypertension): coreg BID resume lasix BID as well (9) HLD (hyperlipidemia): Cont to hold statin due to elevated ast/alt. (10) Chronic respiratory failure with hypoxia and hypercapnia: 2nd to ZACKARY, OHS, COPD. On home O2 3 L continuously. Cont BIPAP HS. (11) Morbid obesity with BMI of 60.0-69.9, adult: BMI 65 (12) Obesity hypoventilation syndrome: (13) Chronic indwelling Barboza catheter: Reason? neurogenic from l-spine issues? neurogenic from diabetic neuropathy? other?? needs barboza exchanged this admission. consider voiding trial?? (14) Psoriasis: severe. continue topical treatments. hand x-rays w/o erosive changes which would argue against psoriatic arthritis. (15) COPD (chronic obstructive pulmonary disease): w/o exacerbation cont advair and spiriva (16) Chronic pain syndrome: resume oxycodone 20mg q6h (home dosing scheme). pain is back and knees. (17) HOLLY (acute kidney injury): 2nd ATN - see above. resolved. (18) Hypoglycemia: resolved. 2nd to severe sepsis. (19) Ambulatory dysfunction: Bedbound at home x 1 year. PT, OT. REFUSING SNF PLACEMENT. SHE SEEMS TO HAVE ACCEPTED THE FACT THAT SHE IS NON-AMBULATORY. AGAIN HIGHLY ADVISED REHAB TODAY BUT REFUSED. (20) Elevated troponin: Myocardial demand ischemia in setting of sepsis. No anginal symptoms. (21) Iron deficiency: start ferrous sulfate 325 mg BID very poor candidate for endoscopic evaluation (22) Folate deficiency: cause?? poor diet? start folic acid 1mg daily (23) Elevated TSH: check FT4 in am if low then start replacement (24) DVT prophylaxis: heparin q8h progressing home with HH, PT, OT next 48hours spoke with Afsaneh QUINTERO [facility] has home visiting program for home-bound patients if she is accepted in this program a physician first assistant manager would do home visits to her home d/c tele transfer to med/surg Subjective patient eating well tele stable with NSR overnight denies any dyspnea or chest pain again c/o nausea immediately following meals -- chronic for several years DESPITE NONAMBULATORY STATUS DECLINING REHAB STATES "i miss my home" and "I NEED to get home to my family" ( with cancer and getting Rx for this) only used bipap a portion of last night then removed it Review of Systems Constitutional: no fatigue and no anorexia Respiratory: no cough and no dyspnea Cardiovascular: no chest pain Gastrointestinal: no abdominal pain Physical Exam Constitutional: + morbidly obese; no acute distress ENMT: external ear and nose normal, oropharynx normal Respiratory: no respiratory distress Auscultation: + diminished lung sounds (bases); no crackles, no rhonchi and no wheezes Cardiovascular: Rate/Rhythm: regular rate and regular rhythm Heart Sounds: normal S1 and normal S2 Vessels: posterior tibial pulses present and dorsalis pedis pulses present; no JVD Extremities: + edema (<1 + b/l) Gastrointestinal (Abdomen): Inspection/Auscultation: + abdomen distended Percussion/Palpation: + hepatomegaly and + hernia (midline- reducible (vs diasthesis recti)); abdomen nontender, no guarding and abdomen not rigid Skin: extensive psoriasis plaques, patches etc on numerous bodily areas Psychiatric: A+Ox3, euthymic affect Results & Data Vital Signs (Past 12 Hours) Vital Signs Temp Pulse Resp BP Pulse Ox 11/17/18 17:09 36.9 C 68 20 173/74 H 98 11/17/18 15:51 36.7 C 70 18 153/56 H 97 11/17/18 12:23 37 C 69 18 147/77 H 96 Laboratory Results Laboratory Results - last 24 hr 11/17/18 11/17/18 11/17/18 05:17 05:17 05:17 WBC 11.46 H RBC 3.82 L Hgb 9.6 L Hct 33.2 L MCV 86.9 MCH 25.1 MCHC 28.9 L RDW Std Deviation 51.6 H RDW Coeff of Tamra 16.4 H Plt Count 260 MPV 9.7 Sodium 133 L Potassium 3.9 Chloride 93 L Carbon Dioxide 39 H Anion Gap 1.0 L BUN 17 Creatinine 0.98 Est Cr Clr Drug Dosing 106.0 Est GFR ( Amer) 71.7 Est GFR (Non-Af Amer) 61.8 BUN/Creatinine Ratio 17.5 Glucose 241 H POC Glucose Estimat Average Glucose 105 Hemoglobin A1c 5.3 Calcium 9.0 Iron 27 L Transferrin 220 Transferrin % Sat 9 L Ferritin 26.1 Total Bilirubin 0.5 Direct Bilirubin 0.2 AST 122 H ALT 345 H Alkaline Phosphatase 71 Total Protein 6.8 Albumin 2.7 L Vitamin B12 Folate TSH 7.230 H 11/17/18 11/17/18 11/17/18 05:17 07:27 11:17 WBC RBC Hgb Hct MCV MCH MCHC RDW Std Deviation RDW Coeff of Tamra Plt Count MPV Sodium Potassium Chloride Carbon Dioxide Anion Gap BUN Creatinine Est Cr Clr Drug Dosing Est GFR ( Amer) Est GFR (Non-Af Amer) BUN/Creatinine Ratio Glucose POC Glucose 256 H 242 H Estimat Average Glucose Hemoglobin A1c Calcium Iron Transferrin Transferrin % Sat Ferritin Total Bilirubin Direct Bilirubin AST ALT Alkaline Phosphatase Total Protein Albumin Vitamin B12 740 Folate 4.86 L TSH 11/17/18 11/17/18 16:29 20:06 WBC RBC Hgb Hct MCV MCH MCHC RDW Std Deviation RDW Coeff of Tamra Plt Count MPV Sodium Potassium Chloride Carbon Dioxide Anion Gap BUN Creatinine Est Cr Clr Drug Dosing Est GFR ( Amer) Est GFR (Non-Af Amer) BUN/Creatinine Ratio Glucose POC Glucose 178 H 213 H Estimat Average Glucose Hemoglobin A1c Calcium Iron Transferrin Transferrin % Sat Ferritin Total Bilirubin Direct Bilirubin AST ALT Alkaline Phosphatase Total Protein Albumin Vitamin B12 Folate TSH Diagnostic Findings urine cx - pansensitive pseudomonas blood cx's negative to date (1) Respiratory failure, [id number] Respiratory failure complication: hypoxia and hypercapnia Qualified Code(s): J96.21 - Acute and chronic respiratory failure with hypoxia; J96.22 - Acute and chronic respiratory failure with hypercapnia (2) HLD (hyperlipidemia) Hyperlipidemia type: mixed hyperlipidemia Qualified Code(s): E78.2 - Mixed hyperlipidemia (3) DM II (diabetes mellitus, type II), controlled Diabetes mellitus complication status: with hypoglycemia Diabetes mellitus laborer marine terminal insulin use: with laborer marine terminal use Qualified Code(s): E11.649 - Type 2 diabetes mellitus with hypoglycemia without coma; Z79.4 - equipment operator intermodal yard (current) use of insulin (4) COPD (chronic obstructive pulmonary disease) COPD type: unspecified COPD Qualified Code(s): J44.9 - Chronic obstructive pulmonary disease, unspecified (5) HTN (hypertension) Hypertension type: essential hypertension Qualified Code(s): I10 - Essential (primary) hypertension
[2018-11-17] MEDS: CIPROFLOXACIN 500 MG TAB PO SCH (21:21)
[2018-11-18] MEDS: HEPARIN SOD 5,000 UNIT/0.5 ML VIAL SQ SCH ×3 (06:40→21:05)
[2018-11-18] MEDS: ONDANSETRON INJ 2 MG/ML 2 ML VIAL IV PRN (06:43)
[2018-11-18] MEDS: FLUTICASONE/SALMETEROL 250/50 (ADVAIR) 14 PUFF/1 INHALER INH SCH ×2 (09:19→20:57)
[2018-11-18] MEDS: TIOTROPIUM BROMIDE 5 PUFF/90 MCG INH INH SCH (09:20)
[2018-11-18] MEDS: OXYCODONE HCL IR 5 MG TAB (IMMEDIATE RELEASE) PO SCH ×4 (09:21→20:58)
[2018-11-18] MEDS: DICLOFENAC SOD 1% GEL 100 GM TUBE EXT SCH ×4 (09:22→20:58)
[2018-11-18] MEDS: FUROSEMIDE 40 MG TAB PO SCH ×2 (09:23→17:24)
[2018-11-18] MEDS: FOLIC ACID 1 MG TAB PO SCH (09:24)
[2018-11-18] MEDS: GABAPENTIN 300 MG CAP PO SCH ×3 (09:24→21:01)
[2018-11-18] MEDS: PANTOprazole 40 MG TAB PO SCH (09:24)
[2018-11-18] MEDS: CARVEDILOL 3.125 MG TAB PO SCH ×2 (09:25→21:02)
[2018-11-18] MEDS: CIPROFLOXACIN 500 MG TAB PO SCH ×2 (09:25→20:59)
[2018-11-18] MEDS: FERROUS SULFATE 325 MG TAB PO SCH ×2 (09:26→17:24)
[2018-11-18] MEDS: INSULIN GLARGINE SOLOSTAR 100 UNITS/ML 3 ML PEN SC SCH ×2 (09:27→21:03)
[2018-11-18] MEDS: INSULIN ASPART 100 UNITS/ML 3 ML PEN SC SCH ×4 (09:30→21:04)
[2018-11-18] MEDS: AMMONIUM LACTATE 12% LOTION 225 GM BTL EXT SCH ×2 (09:31→20:57)
[2018-11-18] MEDS: KETOCONAZOLE 2% SHAMPOO 120 ML BTL EXT SCH (09:32)
[2018-11-18] MEDS: NYSTATIN POWDER 15GM BTL EXT SCH ×3 (09:32→21:01)
[2018-11-18] MEDS: LACTULOSE SYRUP 30 GM/45 ML UDP PO SCH (09:39)
[2018-11-18 10:24] LABS: Hematocrit (blood only) 35.9 % (37-47); Mean Corpuscular Hgb Conc 27.9 g/dL (32-36); Mean Corpuscular Volume 87.6 fL (80-100); Mean Platelet Volume 9.4 fL (7.4-10.4); Platelet Count 247 K/uL (130-400); RDW Coefficient of Variation 16.3 % (11.5-14.5); RDW Standard Deviation 51.2 fL (36.4-46.3); White Blood Count 10.21 K/uL (4.8-10.8)
[2018-11-18 11:07] LABS: Albumin Level 2.9 gm/dl (3.4-5.0); BUN Creatinine Ratio 16.4 (10-20); Bilirubin,Total 0.5 mg/dl (0.2-1); Calcium 9.8 mg/dl (8.5-10.1); Creatinine Clr Calc Pharmacy 116.7 ml/min; Est GFR (African American) 80.5; Est GFR (Non-African American) 69.5; Potassium 3.9 mmol/L (3.5-5.1); T4 Free Thyroxine 1.39 ng/dl (0.8-1.6)
[2018-11-18 11:09] LABS: Albumin Globulin Ratio 0.7 (0.9-2); Total Protein 6.9 gm/dl (6.4-8.2)
--- NOTE | 2018-11-18 11:29 | Hospitalist Progress Note ---
Date of Service November 18, 2018 Assessment & Plan (1) Severe sepsis: Secondary to Pseudomonas UTI. Was recently treated for proteus and VRE UTI through the [facility] prior to admission. These pathogens have not grown again on admission urine cx. Sepsis is resolved Initially treated with Zosyn and has since been changed to PO cipro 500 BID- today is day #4 Plan 10 day course total -Exchange Garcia catheter today Blood cx's remain no growth to date (2) Sepsis secondary to UTI: as above in "severe sepsis" UTI is catheter-associated UTI / complicated UTI present on admission (3) ATN (acute tubular necrosis): HOLLY 2nd to sepsis-associated ATN. casts seen on u/a c/w ATN. resolved. Have since resumed chronic lasix 40mg BID. (4) Respiratory failure, [id number]: acute on chronic hypercapnic and hypoxic respiratory failure component resolved. back to NC 3 L which is home amount. VBG with acidosis and CO2 retention which improved with BiPAP usage -Continue BIPAP at HS for ZACKARY (was previously on BIPAP at home for ZACKARY in past but stopped using it). -Will need repeat sleep study as outpatient. -Chronic respiratory failure 2nd to obesity-hypoventilation syndrome, ?COPD, etc. Serum bicarbonate is elevated consistent with chronic CO2 retention (5) Metabolic encephalopathy: Was secondary to sepsis, elevated ammonia, and hypercarbia. resolved. -Continue lactulose (6) Acute hepatitis: Was most likely ischemic/shock liver. LFTs went into the 1000s infectious hepatitis (hep A/B/C) negative. RUQ u/s without biliary obstruction. INR stable. [facility] consult appreciated. AST and ALT continue to improve and almost completely back to normal. Markedly enlarged liver and spleen on imaging suggestive of chronic liver disease (early JUDGE?). -Will need outpatient f/u with [facility] for surveillance. -Follow LFTs in the morning (7) DM II (diabetes mellitus, type II), controlled: Improved control -Continue Lantus and NovoLog T2DM diet (8) HTN (hypertension): Controlled -Continue Coreg BID -Continue Lasix BID (9) HLD (hyperlipidemia): Cont to hold statin due to elevated ast/alt. (10) Chronic respiratory failure with hypoxia and hypercapnia: 2nd to ZACKARY, OHS, COPD. On home O2 3 L continuously. Cont BIPAP HS while in the hospital and will need formal sleep study as an outpatient. (11) Morbid obesity with BMI of 60.0-69.9, adult: BMI 65 (12) Obesity hypoventilation syndrome: As above BiPAP at night (13) Chronic indwelling Garcia catheter: Patient reports having a chronic indwelling Garcia catheter due to her ambulatory dysfunction from lumbar spine issues. She reports it was placed for convenience as she cannot get in and out of the bed is very difficult to change her if she has incontinence. She has had a Garcia catheter in for about a year Garcia catheter exchanged on 11/18 in the hospital (14) Psoriasis: severe. continue topical treatments. hand x-rays w/o erosive changes which would argue against psoriatic arthritis. -Restart home Benadryl as needed itching (15) COPD (chronic obstructive pulmonary disease): w/o exacerbation cont advair and spiriva (16) Chronic pain syndrome: -Continue oxycodone 20mg q6h (home dosing scheme). pain is in the back and knees. (17) HOLLY (acute kidney injury): 2nd ATN - see above. resolved. (18) Hypoglycemia: resolved. 2nd to severe sepsis. (19) Ambulatory dysfunction: Bedbound at home x 1 year. PT, OT. REFUSING SNF PLACEMENT. SHE SEEMS TO HAVE ACCEPTED THE FACT THAT SHE IS NON-AMBULATORY. (20) Elevated troponin: Myocardial demand ischemia in setting of sepsis. No anginal symptoms. (21) Iron deficiency: started ferrous sulfate 325 mg BID very poor candidate for endoscopic evaluation (22) Folate deficiency: Unclear cause but likely due to poor nutrition -Started folic acid 1mg daily (23) Elevated TSH: TSH elevated at 7, free T4 normal today -Unclear if she has symptoms of hypothyroidism -Would monitor again when she is not in the setting of acute illness, perhaps checking thyroid function tests in 4 to 6 weeks as an outpatient -If TSH remains elevated, would consider starting levothyroxine (24) DVT prophylaxis: heparin q8h progressing home with HH, PT, OT hopefully tomorrow Case management is involved [facility] has home visiting program for home-bound patients if she is accepted in this program a physician family assistant would do home visits to her home Subjective Patient reports feeling tired, but overall improved. She is also reporting that she is itchy from her psoriasis and normally takes Benadryl several times a day and would like that ordered here. She reports she has her Garcia catheter exchanged every 2 weeks at home by her visiting nurse and to either her or daughter assisting. She denies chest pain or shortness of breath. Denies abdominal pain. Review of Systems Review of Systems: All systems reviewed & are unremarkable except as noted in HPI & below Physical Exam Constitutional: well developed and + morbidly obese Eyes: PERRL, conjunctivae normal, anicteric sclerae Neck: trachea midline, no thyromegaly Respiratory: normal respiratory effort, lungs clear to auscultation Cardiovascular: Rate/Rhythm: regular rate and regular rhythm Heart Sounds: no murmur Extremities: + edema (1+ pitting edema in the legs bilaterally) Gastrointestinal (Abdomen): normal bowel sounds, soft, nontender, no hepatosplenomegaly (Morbidly obese) Musculoskeletal: Extremities: no cyanosis and no clubbing Skin: + rash (salmon-colored patches on extensor surfaces with white plaque) Neurologic: moves all extremities and awake; no focal motor deficits Psychiatric: A+Ox3, euthymic affect Results & Data Vital Signs (Past 12 Hours) Vital Signs Temp Pulse Pulse Pulse Resp BP Pulse Ox 11/18/18 09:17 70 164/72 H 11/18/18 08:27 36.7 C 68 14 146/70 H 97 11/18/18 07:38 37.1 C 66 16 130/99 97 11/17/18 23:53 36.9 C 65 22 134/70 94 Laboratory Results 11/18/18 11/18/18 11/18/18 Range/Units 20:35 16:45 11:42 WBC (4.8-10.8) K/uL RBC (4.2-5.4) M/uL Hgb (12.0-16.0) g/dL Hct (37-47) % MCV (80-100) fL MCH (25-34) pg MCHC (32-36) g/dL RDW Std Deviation (36.4-46.3) fL RDW Coeff of Tamra (11.5-14.5) % Plt Count (130-400) K/uL MPV (7.4-10.4) fL Sodium (136-145) mmol/L Potassium (3.5-5.1) mmol/L Chloride (98-107) mmol/L Carbon Dioxide (21-32) mmol/L Anion Gap (3-11) BUN (7-18) mg/dl Creatinine (0.6-1.2) mg/dl Est Cr Clr Drug Dosing ml/min Est GFR ( Amer) Est GFR (Non-Af Amer) BUN/Creatinine Ratio (10-20) Glucose (70-99) mg/dl POC Glucose 121 H 126 H 198 H (70-99) Calcium (8.5-10.1) mg/dl Total Bilirubin (0.2-1) mg/dl AST (15-37) U/L ALT (12-78) U/L Alkaline Phosphatase (45-117) U/L Total Protein (6.4-8.2) gm/dl Albumin (3.4-5.0) gm/dl Globulin (2.5-4.0) gm/dl Albumin/Globulin Ratio (0.9-2) Free T4 (0.8-1.6) ng/dl 11/18/18 11/18/18 11/18/18 Range/Units 09:58 09:58 07:54 WBC 10.21 (4.8-10.8) K/uL RBC 4.10 L (4.2-5.4) M/uL Hgb 10.0 L (12.0-16.0) g/dL Hct 35.9 L (37-47) % MCV 87.6 (80-100) fL MCH 24.4 L (25-34) pg MCHC 27.9 L (32-36) g/dL RDW Std Deviation 51.2 H (36.4-46.3) fL RDW Coeff of Tamra 16.3 H (11.5-14.5) % Plt Count 247 (130-400) K/uL MPV 9.4 (7.4-10.4) fL Sodium 134 L (136-145) mmol/L Potassium 3.9 (3.5-5.1) mmol/L Chloride 92 L (98-107) mmol/L Carbon Dioxide 38 H (21-32) mmol/L Anion Gap 3.0 (3-11) BUN 15 (7-18) mg/dl Creatinine 0.89 (0.6-1.2) mg/dl Est Cr Clr Drug Dosing 116.7 ml/min Est GFR ( Amer) 80.5 Est GFR (Non-Af Amer) 69.5 BUN/Creatinine Ratio 16.4 (10-20) Glucose 186 H (70-99) mg/dl POC Glucose 171 H (70-99) Calcium 9.8 (8.5-10.1) mg/dl Total Bilirubin 0.5 (0.2-1) mg/dl AST 52 H (15-37) U/L ALT 213 H (12-78) U/L Alkaline Phosphatase 69 (45-117) U/L Total Protein 6.9 (6.4-8.2) gm/dl Albumin 2.9 L (3.4-5.0) gm/dl Globulin 4.0 (2.5-4.0) gm/dl Albumin/Globulin Ratio 0.7 L (0.9-2) Free T4 1.39 (0.8-1.6) ng/dl (1) Respiratory failure, [id number] Respiratory failure complication: hypoxia and hypercapnia Qualified Code(s): J96.21 - Acute and chronic respiratory failure with hypoxia; J96.22 - Acute and chronic respiratory failure with hypercapnia (2) HLD (hyperlipidemia) Hyperlipidemia type: mixed hyperlipidemia Qualified Code(s): E78.2 - Mixed hyperlipidemia (3) DM II (diabetes mellitus, type II), controlled Diabetes mellitus complication status: with hypoglycemia Diabetes mellitus corn picker insulin use: with prison use Qualified Code(s): E11.649 - Type 2 diabetes mellitus with hypoglycemia without coma; 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
[2018-11-18] MEDS: ONDANSETRON 4 MG OD TAB PO PRN (12:57)
[2018-11-19] MEDS: ONDANSETRON 4 MG OD TAB PO PRN (06:02)
[2018-11-19] MEDS: HEPARIN SOD 5,000 UNIT/0.5 ML VIAL SQ SCH ×3 (06:02→21:38)
[2018-11-19 06:07] LABS: Basophils # (auto) 0.03 K/uL (0-0.2); Basophils % (auto) 0.3 %; Eosinophils # (auto) 0.25 K/uL (0-0.5); Eosinophils % (auto) 2.4 %; Hematocrit (blood only) 35.1 % (37-47); Lymphocytes # (auto) 1.35 K/uL (1.2-3.4); Mean Corpuscular Hgb Conc 28.5 g/dL (32-36); Mean Corpuscular Volume 87.3 fL (80-100); Mean Platelet Volume 9.2 fL (7.4-10.4); Monocytes # (auto) 0.75 K/uL (0.11-0.59); Monocytes % (auto) 7.2 %; Neutrophils # (auto) 7.92 K/uL (1.4-6.5); Neutrophils % (auto) 76.1 %; Platelet Count 228 K/uL (130-400); RDW Coefficient of Variation 16.4 % (11.5-14.5); RDW Standard Deviation 51.8 fL (36.4-46.3); Red Blood Count 4.02 M/uL (4.2-5.4)
[2018-11-19 06:40] LABS: Albumin Level 2.7 gm/dl (3.4-5.0); BUN Creatinine Ratio 17.6 (10-20); Calcium 9.2 mg/dl (8.5-10.1); Creatinine Clr Calc Pharmacy 122.2 ml/min; Est GFR (African American) 85.1; Est GFR (Non-African American) 73.4; Potassium 3.9 mmol/L (3.5-5.1)
[2018-11-19 06:43] LABS: Bilirubin Direct 0.2 mg/dl (0-0.2); Bilirubin,Total 0.4 mg/dl (0.2-1); Total Protein 6.5 gm/dl (6.4-8.2)
[2018-11-19] MEDS: INSULIN ASPART 100 UNITS/ML 3 ML PEN SC SCH ×4 (09:00→21:39)
[2018-11-19] MEDS: FLUTICASONE/SALMETEROL 250/50 (ADVAIR) 14 PUFF/1 INHALER INH SCH ×2 (09:00→21:33)
[2018-11-19] MEDS: DICLOFENAC SOD 1% GEL 100 GM TUBE EXT SCH ×4 (09:01→21:33)
[2018-11-19] MEDS: FERROUS SULFATE 325 MG TAB PO SCH ×2 (09:02→17:18)
[2018-11-19] MEDS: FUROSEMIDE 40 MG TAB PO SCH ×2 (09:02→17:18)
[2018-11-19] MEDS: PANTOprazole 40 MG TAB PO SCH (09:02)
[2018-11-19] MEDS: CIPROFLOXACIN 500 MG TAB PO SCH ×2 (09:03→21:36)
[2018-11-19] MEDS: FOLIC ACID 1 MG TAB PO SCH (09:03)
[2018-11-19] MEDS: CARVEDILOL 3.125 MG TAB PO SCH ×2 (09:04→21:35)
[2018-11-19] MEDS: OXYCODONE HCL IR 5 MG TAB (IMMEDIATE RELEASE) PO SCH ×4 (09:04→21:31)
[2018-11-19] MEDS: GABAPENTIN 300 MG CAP PO SCH ×3 (09:05→21:34)
[2018-11-19] MEDS: TIOTROPIUM BROMIDE 5 PUFF/90 MCG INH INH SCH (09:05)
[2018-11-19] MEDS: NYSTATIN POWDER 15GM BTL EXT SCH ×3 (09:07→21:37)
[2018-11-19] MEDS: KETOCONAZOLE 2% SHAMPOO 120 ML BTL EXT SCH (09:07)
[2018-11-19] MEDS: INSULIN GLARGINE SOLOSTAR 100 UNITS/ML 3 ML PEN SC SCH ×2 (09:08→21:41)
[2018-11-19] MEDS: LACTULOSE SYRUP 30 GM/45 ML UDP PO SCH (09:09)
[2018-11-19] MEDS: AMMONIUM LACTATE 12% LOTION 225 GM BTL EXT SCH ×2 (09:09→21:36)
--- NOTE | 2018-11-19 12:37 | Hospitalist Progress Note ---
Date of Service November 19, 2018 Assessment & Plan (1) Severe sepsis: Secondary to Pseudomonas UTI. Was recently treated for proteus and VRE UTI through the [facility] prior to admission. These pathogens have not grown again on admission urine cx. Sepsis is resolved Initially treated with Zosyn and has since been changed to PO cipro 500 BID- today is day #5 of 10 -Exchanged Garcia catheter here in the hospital on 11/18 Blood cx's remain no growth to date (2) Sepsis secondary to UTI: as above in "severe sepsis" UTI is catheter-associated UTI / complicated UTI present on admission (3) ATN (acute tubular necrosis): HOLLY 2nd to sepsis-associated ATN. casts seen on u/a c/w ATN. resolved. Have since resumed chronic lasix 40mg BID. (4) Respiratory failure, [id number]: acute on chronic hypercapnic and hypoxic respiratory failure component resolved. back to NC 3 L which is home amount. VBG with acidosis and CO2 retention which improved with BiPAP usage -Continue BIPAP at for ZACKARY (was previously on BIPAP at home for ZACKARY in past but stopped using it). -Will need repeat sleep study as outpatient-will have to be done at home apparently as she is bedbound and cannot get in the car. -Chronic respiratory failure 2nd to obesity-hypoventilation syndrome, ?COPD, etc. Serum bicarbonate is elevated consistent with chronic CO2 retention (5) Metabolic encephalopathy: Was secondary to sepsis, elevated ammonia, and hypercarbia. resolved. -Continue lactulose (6) Acute hepatitis: Was most likely ischemic/shock liver. LFTs went into the 1000s infectious hepatitis (hep A/B/C) negative. RUQ u/s without biliary obstruction. INR stable. [facility] consult appreciated. AST and ALT continue to improve and almost completely back to normal. Markedly enlarged liver and spleen on imaging suggestive of chronic liver disease (early JUDGE?). -Will need outpatient f/u with [facility] for surveillance. -Follow LFTs in the morning (7) DM II (diabetes mellitus, type II), controlled: Improved control -Continue Lantus and NovoLog T2DM diet -will need to restart home insulin pump prior to dc (8) HTN (hypertension): Controlled -Continue Coreg BID -Continue Lasix BID (9) HLD (hyperlipidemia): Cont to hold statin due to elevated ast/alt. (10) Chronic respiratory failure with hypoxia and hypercapnia: 2nd to ZACKARY, OHS, COPD. On home O2 3 L continuously. Cont BIPAP HS while in the hospital and will need formal sleep study as an outpatient. (11) Morbid obesity with BMI of 60.0-69.9, adult: BMI 65 (12) Obesity hypoventilation syndrome: As above BiPAP at night (13) Chronic indwelling Garcia catheter: Patient reports having a chronic indwelling Garcia catheter due to her ambulatory dysfunction from lumbar spine issues. She reports it was placed for convenience as she cannot get in and out of the bed is very difficult to change her if she has incontinence. She has had a Garcia catheter in for about a year Garcia catheter exchanged on 11/18 in the hospital (14) Psoriasis: severe. continue topical treatments. hand x-rays w/o erosive changes which would argue against psoriatic arthritis. -Continue home Benadryl as needed for itching (15) COPD (chronic obstructive pulmonary disease): w/o exacerbation cont advair and spiriva (16) Chronic pain syndrome: -Continue oxycodone 20mg q6h (home dosing scheme). pain is in the back and knees. -Her nortriptyline has been discontinued due to excessive sedation and obesity hypoventilation syndrome Her gabapentin was reduced to 300 mg p.o. 3 times daily for renal dosing (17) HOLLY (acute kidney injury): 2nd ATN - see above. resolved. (18) Hypoglycemia: resolved. 2nd to severe sepsis. (19) Ambulatory dysfunction: Bedbound at home x 1 year. PT, OT. REFUSING SNF PLACEMENT. SHE SEEMS TO HAVE ACCEPTED THE FACT THAT SHE IS NON-AMBULATORY. (20) Elevated troponin: Myocardial demand ischemia in setting of sepsis. No anginal symptoms. (21) Iron deficiency: Increased ferrous sulfate to 325 mg BID very poor candidate for endoscopic evaluation (22) Folate deficiency: Unclear cause but likely due to poor nutrition -Started folic acid 1mg daily (23) Elevated TSH: TSH elevated at 7, free T4 normal today -Unclear if she has symptoms of hypothyroidism -Would monitor again when she is not in the setting of acute illness, perhaps checking thyroid function tests in 4 to 6 weeks as an outpatient -If TSH remains elevated, would consider starting levothyroxine (24) DVT prophylaxis: heparin q8h Doing very well Disposition-medically stable for discharge to home today, however bariatric transportation is not available until tomorrow Case management is involved [employer] has home visiting program for home-bound patients if she is accepted in this program a physician preschool assistant teacher would do home visits to her home Subjective Feeling well, has chronic nausea but is eating today. No bowel movement yet. No abdominal pain. No shortness of breath. Review of Systems Review of Systems: All systems reviewed & are unremarkable except as noted in HPI & below Physical Exam Constitutional: well developed and + morbidly obese Eyes: PERRL, conjunctivae normal, anicteric sclerae Neck: trachea midline, no thyromegaly Respiratory: normal respiratory effort, lungs clear to auscultation Cardiovascular: Rate/Rhythm: regular rate and regular rhythm Heart Sounds: no murmur Extremities: + edema (Trace pitting edema in the legs bilaterally) Gastrointestinal (Abdomen): normal bowel sounds, soft, nontender, no hepatosplenomegaly (Morbidly obese) Musculoskeletal: Extremities: no cyanosis and no clubbing Skin: + rash (salmon-colored patches on extensor surfaces with white plaque) Neurologic: moves all extremities and awake; no focal motor deficits Psychiatric: A+Ox3, euthymic affect Genitourinary: Garcia catheter in place draining clear yellow urine Results & Data Vital Signs (Past 12 Hours) Vital Signs Temp Pulse Resp BP Pulse Ox 11/19/18 08:19 36.8 C 67 20 120/70 98 11/19/18 00:56 37.3 C 72 18 149/76 H 96 Laboratory Results 11/19/18 11/19/18 11/19/18 Range/Units 11:44 07:52 05:46 WBC (4.8-10.8) K/uL RBC (4.2-5.4) M/uL Hgb (12.0-16.0) g/dL Hct (37-47) % MCV (80-100) fL MCH (25-34) pg MCHC (32-36) g/dL RDW Std Deviation (36.4-46.3) fL RDW Coeff of Tamra (11.5-14.5) % Plt Count (130-400) K/uL MPV (7.4-10.4) fL Immature Gran % (Auto) % Neut % (Auto) % Lymph % (Auto) % [place] % (Auto) % Eos % (Auto) % Baso % (Auto) % Immature Gran # (Auto) (0.00-0.02) K/uL Neut # (Auto) (1.4-6.5) K/uL Lymph # (Auto) (1.2-3.4) K/uL [place] # (Auto) (0.11-0.59) K/uL Eos # (Auto) (0-0.5) K/uL Baso # (Auto) (0-0.2) K/uL Sodium 135 L (136-145) mmol/L Potassium 3.9 (3.5-5.1) mmol/L Chloride 93 L (98-107) mmol/L Carbon Dioxide 40 H (21-32) mmol/L Anion Gap 2.0 L (3-11) BUN 15 (7-18) mg/dl Creatinine 0.85 (0.6-1.2) mg/dl Est Cr Clr Drug Dosing 122.2 ml/min Est GFR ( Amer) 85.1 Est GFR (Non-Af Amer) 73.4 BUN/Creatinine Ratio 17.6 (10-20) Glucose 145 H (70-99) mg/dl POC Glucose 174 H 155 H (70-99) Calcium 9.2 (8.5-10.1) mg/dl Total Bilirubin 0.4 (0.2-1) mg/dl Direct Bilirubin 0.2 (0-0.2) mg/dl AST 25 (15-37) U/L ALT 138 H (12-78) U/L Alkaline Phosphatase 68 (45-117) U/L Total Protein 6.5 (6.4-8.2) gm/dl Albumin 2.7 L (3.4-5.0) gm/dl 11/19/18 11/18/18 11/18/18 Range/Units 05:46 20:35 16:45 WBC 10.40 (4.8-10.8) K/uL RBC 4.02 L (4.2-5.4) M/uL Hgb 10.0 L (12.0-16.0) g/dL Hct 35.1 L (37-47) % MCV 87.3 (80-100) fL MCH 24.9 L (25-34) pg MCHC 28.5 L (32-36) g/dL RDW Std Deviation 51.8 H (36.4-46.3) fL RDW Coeff of Tamra 16.4 H (11.5-14.5) % Plt Count 228 (130-400) K/uL MPV 9.2 (7.4-10.4) fL Immature Gran % (Auto) 1.0 % Neut % (Auto) 76.1 % Lymph % (Auto) 13.0 % [place] % (Auto) 7.2 % Eos % (Auto) 2.4 % Baso % (Auto) 0.3 % Immature Gran # (Auto) 0.10 H (0.00-0.02) K/uL Neut # (Auto) 7.92 H (1.4-6.5) K/uL Lymph # (Auto) 1.35 (1.2-3.4) K/uL [place] # (Auto) 0.75 H (0.11-0.59) K/uL Eos # (Auto) 0.25 (0-0.5) K/uL Baso # (Auto) 0.03 (0-0.2) K/uL Sodium (136-145) mmol/L Potassium (3.5-5.1) mmol/L Chloride (98-107) mmol/L Carbon Dioxide (21-32) mmol/L Anion Gap (3-11) BUN (7-18) mg/dl Creatinine (0.6-1.2) mg/dl Est Cr Clr Drug Dosing ml/min Est GFR ( Amer) Est GFR (Non-Af Amer) BUN/Creatinine Ratio (10-20) Glucose (70-99) mg/dl POC Glucose 121 H 126 H (70-99) Calcium (8.5-10.1) mg/dl Total Bilirubin (0.2-1) mg/dl Direct Bilirubin (0-0.2) mg/dl AST (15-37) U/L ALT (12-78) U/L Alkaline Phosphatase (45-117) U/L Total Protein (6.4-8.2) gm/dl Albumin (3.4-5.0) gm/dl (1) Respiratory failure, [id number] Respiratory failure complication: hypoxia and hypercapnia Qualified Code(s): J96.21 - Acute and chronic respiratory failure with hypoxia; J96.22 - Acute and chronic respiratory failure with hypercapnia (2) DM II (diabetes mellitus, type II), controlled Diabetes mellitus skilled nursing insulin use: with muck hauler use Diabetes mellitus complication status: with hypoglycemia Qualified Code(s): E11.649 - Type 2 diabetes mellitus with hypoglycemia without coma; 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
[2018-11-20] MEDS: ONDANSETRON 4 MG OD TAB PO PRN (06:26)
[2018-11-20] MEDS: HEPARIN SOD 5,000 UNIT/0.5 ML VIAL SQ SCH ×2 (06:27→13:21)
[2018-11-20 07:32] LABS: Alanine Aminotransferase 95 U/L (12-78); Albumin Level 2.8 gm/dl (3.4-5.0); Aspartate Aminotransferase 20 U/L (15-37); BUN Creatinine Ratio 14.8 (10-20); Blood Urea Nitrogen 15 mg/dl (7-18); Calcium 9.5 mg/dl (8.5-10.1); Carbon Dioxide 40 mmol/L (21-32); Chloride 92 mmol/L (98-107); Creatinine Clr Calc Pharmacy 100.9 ml/min; Est GFR (African American) 67.5; Est GFR (Non-African American) 58.2; Glucose 221 mg/dl (70-99); Potassium 4.2 mmol/L (3.5-5.1); Sodium 134 mmol/L (136-145)
[2018-11-20 07:35] LABS: Alkaline Phosphatase 72 U/L (45-117); Bilirubin,Total 0.4 mg/dl (0.2-1)
[2018-11-20 08:10] LABS: Bilirubin Direct < 0.1 mg/dl (0-0.2)
[2018-11-20] MEDS: OXYCODONE HCL IR 5 MG TAB (IMMEDIATE RELEASE) PO SCH ×2 (08:38→13:19)
[2018-11-20] MEDS: PANTOprazole 40 MG TAB PO SCH (08:39)
[2018-11-20] MEDS: FUROSEMIDE 40 MG TAB PO SCH (08:39)
[2018-11-20] MEDS: FLUTICASONE/SALMETEROL 250/50 (ADVAIR) 14 PUFF/1 INHALER INH SCH (08:39)
[2018-11-20] MEDS: GABAPENTIN 300 MG CAP PO SCH ×2 (08:39→13:21)
[2018-11-20] MEDS: FOLIC ACID 1 MG TAB PO SCH (08:39)
[2018-11-20] MEDS: LACTULOSE SYRUP 30 GM/45 ML UDP PO SCH (08:40)
[2018-11-20] MEDS: FERROUS SULFATE 325 MG TAB PO SCH (08:40)
[2018-11-20] MEDS: CARVEDILOL 3.125 MG TAB PO SCH (08:41)
[2018-11-20] MEDS: CIPROFLOXACIN 500 MG TAB PO SCH (08:41)
[2018-11-20] MEDS: TIOTROPIUM BROMIDE 5 PUFF/90 MCG INH INH SCH (08:42)
[2018-11-20] MEDS: INSULIN ASPART 100 UNITS/ML 3 ML PEN SC SCH ×2 (08:51→13:23)
[2018-11-20] MEDS: INSULIN GLARGINE SOLOSTAR 100 UNITS/ML 3 ML PEN SC SCH (08:52)
[2018-11-20] MEDS: NYSTATIN POWDER 15GM BTL EXT SCH ×2 (08:53→13:22)
[2018-11-20] MEDS: AMMONIUM LACTATE 12% LOTION 225 GM BTL EXT SCH (08:53)
[2018-11-20] MEDS: KETOCONAZOLE 2% SHAMPOO 120 ML BTL EXT SCH (08:53)
[2018-11-20] MEDS: DICLOFENAC SOD 1% GEL 100 GM TUBE EXT SCH ×2 (08:54→13:25)
--- NOTE | 2018-11-20 11:09 | Discharge Summary ---
Date of Service November 20, 2018 Admission HPI Per Admitting Provider 63yo female with morbid obesity (BMI 66), chronic hypoxic/hypercarbic resp failure on home O2 3 L continuously, T2DM on insulin pump, HTN, and COPD who presents from home via EMS with severe fatigue, anorexia, weakness, UTI, and lethargy. Patient states she has had a chronic barboza catheter x 1 year (last exchange on 11/05/18 by history) and over the last 7-10 days has been taking antibiotics for a UTI. She was mildly altered during my history taking and could only tell me that she was prescribed antibiotics and later on the antibiotic was changed based on culture results. She thinks that she started on the antibiotics this past Tuesday when [facility] visited her at home. Her home medication regimen lists PCN VK as her antibiotic along with macrobid. Despite recent antibiotics she reports feeling "terrible" over the last 2-3 days with considerable weakness/fatigue/anorexia/dehydration. She denied any dizziness but she is bed-bound / does not ambulate under any circumstances. She has been bed-bound x 1 year. Urine culture results were obtained from the [facility] dated 11/02/2018. This grew VRE (sensitive to PCN, amp, and daptomycin) along with proteus (pansensitive except for tetracycline and macrobid). Upon ER presentation today the patient was awake but very sleepy/borderline lethargic at times and mildly altered. Systolic BP was in the 60s. She was hypoglycemic requiring an amp of D50. Her insulin pump was removed by the ER staff. She was given multiple saline boluses. Her SBP improved into the low 100s. The patient kept falling asleep during the visit. Myoclonic jerks were noted throughout. She reported that this was chronic for her. When asked about code status she said "I've been thinking about talking to my about this." Ultimately she chose full code status. Due to significant hypercarbia I asked respiratory to place BIPAP while awaiting admission. Principal Diagnosis Severe sepsis, acute on chronic respiratory failure with hypoxia and hypercarbia, Pseudomonas UTI Discharge Exam Constitutional well developed and + morbidly obese Eyes PERRL, conjunctivae normal, anicteric sclerae Neck trachea midline, no thyromegaly Respiratory normal respiratory effort, lungs clear to auscultation Cardiovascular Rate/Rhythm: regular rate and regular rhythm Heart Sounds: no murmur Extremities: + edema (Trace pitting edema in the legs bilaterally) Gastrointestinal (Abdomen) normal bowel sounds, soft, nontender, no hepatosplenomegaly (Morbidly obese) Musculoskeletal Extremities: no cyanosis and no clubbing Skin + rash (salmon-colored patches on extensor surfaces with white plaque) Neurologic moves all extremities and awake; no focal motor deficits Psychiatric A+Ox3, euthymic affect Discharge Data Allergies Allergy/AdvReac Type Severity Reaction Status Date / Time No Known Allergies Allergy Unverified 11/15/18 08:22 Consultations Gastroenterology Ordered Studies 11/15/18 07:59 CT abd pelvis wo con Stat 11/15/18 12:27 US gallbladder Routine Hand xrays CXR Hospital Course (1) Severe sepsis: Secondary to Pseudomonas UTI. Was recently treated for proteus and VRE UTI through the [facility] prior to admission. These pathogens have not grown again on admission urine cx. Sepsis is resolved Initially treated with Zosyn and has since been changed to PO cipro 500 BID- today is day #6 of 10 -Exchanged Barboza catheter here in the hospital on 11/18 Blood cx's remain no growth to date Much improved overall and stable for discharge to home (2) Sepsis secondary to UTI: as above in "severe sepsis" UTI is catheter-associated UTI / complicated UTI present on admission (3) ATN (acute tubular necrosis): HOLLY 2nd to sepsis-associated ATN. casts seen on u/a c/w ATN. resolved. Have since resumed chronic lasix 40mg BID. (4) Respiratory failure, [id number]: acute on chronic hypercapnic and hypoxic respiratory failure component resolved. back to NC 3 L which is home amount. VBG with acidosis and CO2 retention which improved with BiPAP usage -used BIPAP at HS for ZACKARY (was previously on BIPAP at home for ZACKARY in past but stopped using it) while here but no longer has at home -Will need repeat sleep study as outpatient-will have to be done at home apparently as she is bedbound and cannot get in the car. -Chronic respiratory failure 2nd to obesity-hypoventilation syndrome, COPD, etc. Serum bicarbonate is elevated consistent with chronic CO2 retention (5) Metabolic encephalopathy: Was secondary to sepsis, elevated ammonia, and hypercarbia. resolved. -Continue lactulose (6) Acute hepatitis: Was most likely ischemic/shock liver. LFTs went into the 1000s infectious hepatitis (hep A/B/C) negative. RUQ u/s without biliary obstruction. INR stable. [facility] consult appreciated. AST and ALT continue to improve and almost completely back to normal.ALT now only minimaly elevated at 95 Markedly enlarged liver and spleen on imaging suggestive of chronic liver disease (early JUDGE?). -Will need outpatient f/u with [facility] for surveillance. -Follow LFTs after discharge in 1-2 weeks (7) DM II (diabetes mellitus, type II), controlled: Improved control -Continue Lantus and NovoLog T2DM diet -restart home insulin pump tonight if glucose elevated or tomorrow if glucose this evening within acceptable range-consumer educator reviewed instructions with her (8) HTN (hypertension): Controlled -Continue Coreg BID -Continue Lasix BID (9) HLD (hyperlipidemia): ok to restart statin now that LFs improved (10) Chronic respiratory failure with hypoxia and hypercapnia: Secondary to ZACKARY, OHS, COPD. On home O2 3 L continuously. Cont BIPAP HS while in the hospital and will need formal sleep study as an outpatient. (11) Morbid obesity with BMI of 60.0-69.9, adult: BMI 65 (12) Obesity hypoventilation syndrome: As above (13) Chronic indwelling Barboza catheter: Patient reports having a chronic indwelling Barboza catheter due to her ambulatory dysfunction from lumbar spine issues. She reports it was placed for convenience as she cannot get in and out of the bed is very difficult to change her if she has incontinence. She has had a Barboza catheter in for about a year Barboza catheter exchanged on 11/18 in the hospital (14) Psoriasis: severe. continue topical treatments. hand x-rays w/o erosive changes which would argue against psoriatic arthritis. -Continue home Benadryl as needed for itching (15) COPD (chronic obstructive pulmonary disease): w/o exacerbation cont advair and spiriva (16) Chronic pain syndrome: -Continue oxycodone 20mg q6h (home dosing scheme). pain is in the back and knees. -Her nortriptyline has been discontinued due to excessive sedation and obesity hypoventilation syndrome Her gabapentin was reduced to 300 mg p.o. 3 times daily for renal dosing (17) HOLLY (acute kidney injury): Secondary to ATN - see above. resolved. (18) Hypoglycemia: resolved. Secondary to severe sepsis. (19) Ambulatory dysfunction: Bedbound at home x 1 year. PT, OT. REFUSING SNF PLACEMENT. SHE SEEMS TO HAVE ACCEPTED THE FACT THAT SHE IS NON-AMBULATORY. (20) Elevated troponin: Myocardial demand ischemia in setting of sepsis. No anginal symptoms. (21) Iron deficiency: Increased ferrous sulfate to 325 mg BID very poor candidate for endoscopic evaluation (22) Folate deficiency: Unclear cause but likely due to poor nutrition -Started folic acid 1mg daily (23) Elevated TSH: TSH elevated at 7, free T4 normal today -Unclear if she has symptoms of hypothyroidism -Would monitor again when she is not in the setting of acute illness, perhaps checking thyroid function tests in 4 to 6 weeks as an outpatient -If TSH remains elevated, would consider starting levothyroxine (24) DVT prophylaxis: heparin q8h Doing very well Disposition-medically stable for discharge to home today Case management is involved [employer] [facility] has home visiting program for home-bound patients if she is accepted in this program a physician [employer] assistant principal would do home visits to her home Total Time Total Time Spent Total Time Spent (In Minutes): >30 min Total Time Includes: Examination of the Patient, Discharge Planning and Medication Reconciliation Discharge Plan Discharge Items Patient Disposition: Home - Home Health Services Reason For Visit: SEVERE SEPSIS, UTI, ACUTE/CHRONIC Discharge Diagnosis: Severe sepsis, UTI, acute on chronic respiratory failure Condition: Good Discharge Goals: Decrease discomfort, Diagnostic testing, Improve disease control, Learn about illness and Therapeutic intervention Activity: Resume your previous activity Bathing: No limitations Exercise/Sports: As tolerated Non-emergency contact: Primary Care Provider Call non-emergency contact if: you have any medication questions, your symptoms worsen, your pain is not controlled, your pain is worsening, your pain is unusual for you, your pain is concerning for you and your temperature is above 100.5 Follow-up/Referrals: Robbie Yeh [Primary Care Provider] - Diet: Carb Consistent or DM2 and Heart Healthy Addtl Provider Instructions: You were admitted with severe sepsis due to a urinary tract infection. Your treated with antibiotics, IV fluids, and had significant improvement. You had some temporary liver failure which improved by the day of discharge. Please finish out the course of antibiotics with ciprofloxacin 1 pill twice daily. You also were prescribed a medication called lactulose that can be taken every day to help with your constipation. Please follow-up with your primary care provider in your home as will be arranged for you with case management after discharge. Prescriptions: New ciprofloxacin HCl 500 mg Tablet 500 mg PO BID Qty: 12 RF: 0 gabapentin 300 mg Capsule 300 mg PO TID Qty: 90 RF: 0 lactulose 20 gram/30 mL Solution 20 gm PO QAM 30 Days Qty: 1200 RF: 0 folic acid 1 mg Tablet 1 mg PO QAM Qty: 30 RF: 0 Continued furosemide [Lasix] 40 mg Tablet 40 mg PO BID RF: 0 fluticasone propion-salmeterol [Advair Diskus] 250-50 mcg/dose Blister With Device 1 inh INHALATION BID RF: 0 nitrofurantoin macrocrystal 50 mg Capsule 50 mg PO HS RF: 0 ketoconazole 2 % shampoo 1 applic topical DAILY RF: 0 atorvastatin [Lipitor] 10 mg Tablet 10 mg PO HS RF: 0 ondansetron HCl [Zofran] 4 mg Tablet 4 mg PO Q6H PRN (Reason: Nausea) RF: 0 metformin 850 mg Tablet 850 mg PO TID RF: 0 Humulin R U-500 (Conc) Insulin 500 unit/mL Solution SUBCUT DAILY RF: 0 carvedilol 3.125 mg Tablet 3.125 mg PO BID RF: 0 docusate sodium 100 mg Capsule 100 mg PO BID RF: 0 nystatin 100,000 unit/gram Powder 1 applic TOPICAL PM RF: 0 betamethasone dipropionate 0.05 % lotion 1 applic topical BID RF: 0 Prilosec OTC 20 mg Tablet,Delayed Release (Dr/Ec) 20 mg PO DAILY RF: 0 Spiriva with HandiHaler 18 mcg Capsule, W/Inhalation Device 1 cap INHALATION DAILY RF: 0 diclofenac sodium 1 % gel 2 g topical QID PRN (Reason: affected joint pain area) RF: 0 oxycodone 20 mg Tablet 20 mg PO Q6H RF: 0 cholecalciferol (vitamin D3) [Vitamin D3] 5,000 unit Tablet 5,000 unit PO 3XWK RF: 0 Enigma-3 Fish Oil 910-1,400 mg Capsule 1 cap PO BID RF: 0 Linzess 145 mcg Capsule 145 mcg PO DAILY RF: 0 cyanocobalamin (vitamin B-12) 1,000 mcg/mL Kit 1,000 mcg IM Q30D RF: 0 Changed diphenhydramine HCl [Benadryl] 25 mg Capsule 25 mg PO Q6H PRN (Reason: itching) Qty: 0 RF: 0 ferrous sulfate 325 mg (65 mg iron) Tablet 325 mg PO BID Qty: 0 RF: 0 Discontinued gabapentin 600 mg Tablet 600 mg PO TID RF: 0 nortriptyline 10 mg Capsule 10 mg PO TID RF: 0 gabapentin 100 mg Capsule 100 mg PO TID RF: 0 naproxen 500 mg Tablet 500 mg PO BID RF: 0 penicillin V potassium 500 mg tablet 500 mg PO QID RF: 0 Stand-Alone Forms: [facility] Discharge Orders: Discharge Order (Routine); Ordered 11/20/18 Ordered By: Joan Gao Admission Data Admit Date/Time: 11/15/18 10:03 Attending Provider: Joan Gao Admit Provider: Tomi Machado Primary Care Provider: Robbie Yeh Other Providers: Jim Hong Alyssa Service: Medical Other Pending Studies at Discharge: No
== END 2018-11-20 17:56 | disposition home health service (06) | DRG 698 ==
LOC: ED 07:30 → 2E 10:03 → SUATTDRO 10:03 → 2E 10:29 → 4E 11-17 15:05

== ENCOUNTER 2019-03-08 23:16 | Inpatient (IN) ==
[2019-03-08] MEDS ORDERED: ACETAMINOPHEN 1000 MG/100 ML IV IV STA (23:45)
[2019-03-08] MEDS ORDERED: PIPERACILL/TAZOBAC CONSULT ACTIVE PRN (23:58)
[2019-03-08] MEDS ORDERED: PIPERACILLIN/TAZOBACTAM 4.5 GM/120 ML BAG IV ONE (23:58)
[2019-03-09 00:37] LABS: Basophils # (auto) 0.02 K/uL (0-0.2); Basophils % (auto) 0.1 %; Hematocrit (blood only) 28.7 % (37-47); Hemoglobin 8.6 g/dL (12.0-16.0); Immature Granulocytes # (auto) 0.15 K/uL (0.00-0.02); Lymphocytes # (auto) 0.72 K/uL (1.2-3.4); Mean Corpuscular Hemoglobin 26.1 pg (25-34); Mean Corpuscular Volume 87.2 fL (80-100); Mean Platelet Volume 9.5 fL (7.4-10.4); Monocytes # (auto) 0.82 K/uL (0.11-0.59); Monocytes % (auto) 5.7 %; Neutrophils # (auto) 12.74 K/uL (1.4-6.5); Neutrophils % (auto) 88.2 %; Platelet Count 288 K/uL (130-400); RDW Coefficient of Variation 17.1 % (11.5-14.5); RDW Standard Deviation 54.5 fL (36.4-46.3); Red Blood Count 3.29 M/uL (4.2-5.4); White Blood Count 14.45 K/uL (4.8-10.8)
--- NOTE | 2019-03-09 00:42 | Emergency Department Note ---
Entered by Favian Aviles acting as a scribe for History of Present Illness General Chief complaint: Fever Stated complaint: altered mental status Source: patient and EMS Limitations: altered mental status History of Present Illness The patient is a 64 y/o female who presents to the ED w/ CC of worsening fever and altered mental status beginning earlier this morning. The patient states she is shaking and having a hard time keeping her head up. She reports she lives at home with her . The patient notes she is not weak and cannot take Tylenol because she "is not allowed to". She states her knees hurt. EMS reports the patient has had a fever all day with an increasing altered mental status and drowsiness. They note the patient had a temperature of 38.9 upon arrival. EMS states she also had a decreased urine output today. The patient takes a cranberry supplements called Cystex. HPI limited secondary to the patient's AMS. Home Medications Home Medications Medication Instructions Recorded Confirmed Type Humulin R U-500 (Conc) Insulin 0 unit SUBCUT DAILY 11/15/18 03/09/19 History Prilosec OTC 20 mg PO QAM 11/15/18 03/09/19 History Spiriva with HandiHaler 1 cap INHALATION QAM 11/15/18 03/09/19 History atorvastatin [Lipitor] 10 mg PO HS 11/15/18 03/09/19 History betamethasone dipropionate 1 applic TOPICAL BID 11/15/18 03/09/19 History carvedilol 3.125 mg PO BID 11/15/18 03/09/19 History cholecalciferol (vitamin D3) 5,000 unit PO 3XWK 11/15/18 03/09/19 History [Vitamin D3] cyanocobalamin (vitamin B-12) 1,000 mcg IM Q30D 11/15/18 03/09/19 History diclofenac sodium 2 g TOPICAL QID PRN 11/15/18 03/09/19 History docusate sodium 100 mg PO BID PRN 11/15/18 03/09/19 History furosemide [Lasix] 40 mg PO BID 11/15/18 03/09/19 History ketoconazole 1 applic TOPICAL 2XWK 11/15/18 03/09/19 History metformin 850 mg PO TID 11/15/18 03/09/19 History nitrofurantoin macrocrystal 50 mg PO HS 11/15/18 03/09/19 History nystatin 1 applic TOPICAL PM 11/15/18 03/09/19 History ondansetron HCl [Zofran] 4 mg PO TID PRN 11/15/18 03/09/19 History oxycodone 20 mg PO QID 11/15/18 03/09/19 History diphenhydramine HCl [Benadryl] 25 mg PO Q6H PRN #0 cap 11/19/18 03/09/19 Rx gabapentin 300 mg PO TID #90 cap 11/19/18 03/09/19 Rx cranberry 450 mg PO .DAILY@NOON 03/09/19 03/09/19 History ferrous sulfate 325 mg PO .DAILY@NOON 03/09/19 03/09/19 History fluticasone propion-salmeterol 1 inh INHALATION BID 03/09/19 03/09/19 History [Wixela Inhub] lactulose 30 ml PO BID 03/09/19 03/09/19 History levothyroxine 25 mcg PO DAILY 03/09/19 03/09/19 History lisinopril 5 mg PO DAILY 03/09/19 03/09/19 History magnesium oxide 400 mg PO .DAILY@NOON 03/09/19 03/09/19 History methenamine-sodium salicylate 2 tab PO TID PRN 03/09/19 03/09/19 History [Cystex Plus (methenamine-vinh)] omega 1-lex-tbi-fish oil [Fish Oil] 1 cap PO HS 03/09/19 03/09/19 History Allergies Allergy/AdvReac Type Severity Reaction Status Date / Time No Known Allergies Allergy Unverified 11/15/18 08:22 Past Med/Surg History Medical History COPD (chronic obstructive pulmonary disease) (Chronic) Chronic indwelling Garcia catheter (Chronic) Chronic respiratory failure with hypoxia and hypercapnia (Chronic) on home o2, 3 L continuously DM II (diabetes mellitus, type II), controlled (Chronic) HLD (hyperlipidemia) (Chronic) HTN (hypertension) (Chronic) Obesity hypoventilation syndrome (Chronic) Psoriasis (Chronic) Chronic pain syndrome 2nd to OA of knees; takes chronic opiates Morbid obesity with BMI of 60.0-69.9, adult Recurrent UTI (urinary tract infection) Surgical History Surgical history unknown Family History Father Lung disease Mother , some form of uterine disease? No problems noted. 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 Other Information That Helps Us Care for You: No Feels Safe at Home: Yes Safety Concerns: Feels Safe At This Time Smoking Status: Never smoker Tobacco Type: cigarettes ; packs per day: 1 ; Second Hand Exposure: No ; Hx Alcohol Use: No Hx Substance Use: No Review of Systems Unobtainable due to reduced consciousness (AMS) Physical Exam Vital Signs Vital Signs - 24 hr 03/08/19 23:20 03/08/19 23:22 03/08/19 23:30 Temperature 38.9 C H Temperature Source Oral Sepsis Recent Fever Within 48 Hours Yes Sepsis New/Unexplained Change in Mental Status Yes Sepsis Action Taken by Nursing MD Previously Notified Pulse Rate 93 H 93 H 89 Pulse Rate from SpO2 Sensor 92 H 88 Respiratory Rate 22 25 H 23 Respiratory Effort / Characteristics Spontaneous Labored Respiratory Pattern Irregular Blood Pressure 113/69 113/69 Blood Pressure Mean 83 83 Blood Pressure Position Sitting Pulse Oximetry 94 91 91 Oxygen Delivery Method Nasal Cannula Nasal Cannula Nasal Cannula Oxygen Flow Rate 4 4 4 03/08/19 23:45 03/08/19 23:58 03/09/19 00:01 Temperature Temperature Source Sepsis Recent Fever Within 48 Hours Sepsis New/Unexplained Change in Mental Status Sepsis Action Taken by Nursing Pulse Rate 89 87 87 Pulse Rate from SpO2 Sensor Respiratory Rate 22 20 18 Respiratory Effort / Characteristics Respiratory Pattern Blood Pressure 89/78 L 97/56 L Blood Pressure Mean 81 69 Blood Pressure Position Pulse Oximetry Oxygen Delivery Method Oxygen Flow Rate 03/09/19 00:15 03/09/19 00:32 03/09/19 00:35 Temperature Temperature Source Sepsis Recent Fever Within 48 Hours Sepsis New/Unexplained Change in Mental Status Sepsis Action Taken by Nursing Pulse Rate 85 81 80 Pulse Rate from SpO2 Sensor 81 80 Respiratory Rate 22 19 20 Respiratory Effort / Characteristics Respiratory Pattern Blood Pressure 79/55 L 104/49 L Blood Pressure Mean 63 67 Blood Pressure Position Pulse Oximetry 94 93 Oxygen Delivery Method Nasal Cannula Nasal Cannula Oxygen Flow Rate 4 4 03/09/19 00:45 03/09/19 00:59 03/09/19 01:00 Temperature Temperature Source Sepsis Recent Fever Within 48 Hours Sepsis New/Unexplained Change in Mental Status Sepsis Action Taken by Nursing Pulse Rate 79 78 78 Pulse Rate from SpO2 Sensor 78 78 Respiratory Rate 24 22 Respiratory Effort / Characteristics Respiratory Pattern Blood Pressure 83/57 L Blood Pressure Mean 65 Blood Pressure Position Pulse Oximetry 95 94 95 Oxygen Delivery Method Nasal Cannula Nasal Cannula Nasal Cannula Oxygen Flow Rate 4 4 3 03/09/19 01:03 03/09/19 01:15 03/09/19 01:30 Temperature 37.9 C H Temperature Source Sepsis Recent Fever Within 48 Hours Sepsis New/Unexplained Change in Mental Status Sepsis Action Taken by Nursing Pulse Rate 78 77 77 Pulse Rate from SpO2 Sensor 79 77 77 Respiratory Rate 21 18 18 Respiratory Effort / Characteristics Respiratory Pattern Blood Pressure 102/58 L 92/65 L Blood Pressure Mean 72 74 Blood Pressure Position Pulse Oximetry 96 94 96 Oxygen Delivery Method Nasal Cannula Nasal Cannula Nasal Cannula Oxygen Flow Rate 3 3 3 03/09/19 01:31 03/09/19 01:45 03/09/19 02:01 Temperature Temperature Source Sepsis Recent Fever Within 48 Hours Sepsis New/Unexplained Change in Mental Status Sepsis Action Taken by Nursing Pulse Rate 77 74 75 Pulse Rate from SpO2 Sensor 77 75 75 Respiratory Rate 20 20 19 Respiratory Effort / Characteristics Respiratory Pattern Blood Pressure 107/70 88/57 L 94/52 L Blood Pressure Mean 82 67 66 Blood Pressure Position Pulse Oximetry 96 97 98 Oxygen Delivery Method Nasal Cannula Nasal Cannula Nasal Cannula Oxygen Flow Rate 3 3 3 03/09/19 02:15 03/09/19 02:31 Temperature Temperature Source Sepsis Recent Fever Within 48 Hours Sepsis New/Unexplained Change in Mental Status Sepsis Action Taken by Nursing Pulse Rate 74 72 Pulse Rate from SpO2 Sensor 73 72 Respiratory Rate 21 23 Respiratory Effort / Characteristics Respiratory Pattern Blood Pressure 112/56 L 86/58 L Blood Pressure Mean 74 67 Blood Pressure Position Pulse Oximetry 97 97 Oxygen Delivery Method Nasal Cannula Oxygen Flow Rate 3 Vital signs reviewed. Pt noted to be febrile. Extremely limited secondary to the patient's body habitus. General: Chronically ill-appearing, obese, 64 y/o female, periodic jerking motion. HEENT: No scleral icterus, PERRLA, neck supple. Atraumatic. Cardiovascular: Regular rate and rhythm, no extra sounds. Pulmonary: Clear to auscultation bilaterally with the exception of diminished breath sounds bilaterally. Abdomen: Soft, nontender, nondistended, positive bowel sounds. Indwelling Garcia catheter with concentrated urine. Musculoskeletal: Atraumatic, no peripheral edema. Neurologic: Patient awake but somnolent, oriented x 3, generally weak and unable to sit up even with 2 person assist. Skin: Warm to touch, dry, scaling noted to the right medial LE and bilateral feet. Course 2333: Past medical records reviewed. The patient was evaluated in room B03B. A complete history and physical examination was performed. 0135: I reviewed the patient's case with Dr. Vcik, [facility] Hospitalist. He will evaluate the patient for further management. 0141: Upon reevaluation, the patient is resting comfortably. I discussed laboratory and radiographic results with the patient. She verbalized agreement of the treatment plan. The patient will be evaluated for further management and care. Administered Medications Diclofenac Sodium (Voltaren 1% Top) 2 appln EXT QID PRN PRN Reason: affected joint pain area Stop: 04/08/19 04:04 Last Admin: 03/09/19 04:42 Dose: 2 appln Documented by: [id number] Lactated Ringer's (Lr) 1,000 mls @ 80 mls/hr IV .[id number] RUSS Stop: 04/08/19 04:04 Last Admin: 03/09/19 04:32 Dose: 80 mls/hr Documented by: [id number] Discontinued Medications Acetaminophen (Ofirmev) 1,000 mg IV NOW STA Stop: 03/08/19 23:46 Last Admin: 03/08/19 23:59 Dose: 1,000 mg Documented by: [id number] Piperacillin Sod/Tazobactam Sod (Zosyn) 4.5 gm in 120 mls @ 240 mls/hr IV NOW ONE Stop: 03/09/19 00:27 Last Infusion: 03/09/19 01:31 Dose: 0 mls/hr Documented by: [id number] Admin: 03/09/19 01:03 Dose: 240 mls/hr Documented by: [id number] Sodium Chloride (Nss 1000ml) 1,000 mls @ 999 mls/hr IV .Q1H1M ONE Stop: 03/09/19 01:58 Last Infusion: 03/09/19 02:29 Dose: 0 mls/hr Documented by: [id number] Admin: 03/09/19 01:07 Dose: 999 mls/hr Documented by: [id number] Sodium Chloride (Nss 1000ml) 1,000 mls @ 999 mls/hr IV .Q1H1M ONE Stop: 03/09/19 02:08 Last Infusion: 03/09/19 01:31 Dose: 0 mls/hr Documented by: [id number] Admin: 03/09/19 00:30 Dose: 999 mls/hr Documented by: [id number] Medical Decision Making Differential Diagnosis Differential diagnoses includes but is not limited to toxic, metabolic, infectious, traumatic, cardiac, neurologic, hematologic, psychiatric and inflammatory etiologies. Medical Records Attestation: I reviewed the patient's medical records. Home Medications Current Medication List: was personally reviewed by me Laboratory Data Attestation: I reviewed the patient's lab results. Result diagrams: 03/09/19 00:27 03/09/19 04:28 Lab Results 03/09/19 03/09/19 03/09/19 Range/Units 00:10 00:24 00:27 WBC 14.45 H (4.8-10.8) K/uL RBC 3.29 L (4.2-5.4) M/uL Hgb 8.6 L (12.0-16.0) g/dL Hct 28.7 L (37-47) % MCV 87.2 (80-100) fL MCH 26.1 (25-34) pg MCHC 30.0 L (32-36) g/dL RDW Std Deviation 54.5 H (36.4-46.3) fL RDW Coeff of Tamra 17.1 H (11.5-14.5) % Plt Count 288 (130-400) K/uL MPV 9.5 (7.4-10.4) fL Immature Gran % (Auto) 1.0 % Neut % (Auto) 88.2 % Lymph % (Auto) 5.0 % [place] % (Auto) 5.7 % Eos % (Auto) 0.0 % Baso % (Auto) 0.1 % Immature Gran # (Auto) 0.15 H (0.00-0.02) K/uL Neut # (Auto) 12.74 H (1.4-6.5) K/uL Lymph # (Auto) 0.72 L (1.2-3.4) K/uL [place] # (Auto) 0.82 H (0.11-0.59) K/uL Eos # (Auto) 0.00 (0-0.5) K/uL Baso # (Auto) 0.02 (0-0.2) K/uL Sodium (136-145) mmol/L Potassium (3.5-5.1) mmol/L Chloride (98-107) mmol/L Carbon Dioxide (21-32) mmol/L Anion Gap (3-11) BUN (7-18) mg/dl Creatinine (0.6-1.2) mg/dl Est Cr Clr Drug Dosing Est GFR ( Amer) Est GFR (Non-Af Amer) BUN/Creatinine Ratio (10-20) Glucose (70-99) mg/dl Lactate 2.5 H* (0.4-2.0) mmol/L Calcium (8.5-10.1) mg/dl Magnesium (1.8-2.4) mg/dl Total Bilirubin (0.2-1) mg/dl AST (15-37) U/L ALT (12-78) U/L Alkaline Phosphatase (45-117) U/L Total Protein (6.4-8.2) gm/dl Albumin (3.4-5.0) gm/dl Globulin (2.5-4.0) gm/dl Albumin/Globulin Ratio (0.9-2) TSH (0.300-4.500) uIu/ml Urine Color Dark Yellow Urine Appearance Turbid A (Clear) Urine pH 5.0 (4.5-7.5) Ur Specific [place] 1.024 (1.000-1.030) Urine Protein 2+ H (Negative) Urine Glucose (UA) Negative (Negative) Urine Ketones Negative (Negative) Urine Blood 3+ H (Negative) Urine Nitrite Positive A (Negative) Urine Bilirubin Negative (Negative) Urine Urobilinogen Negative (Negative) Ur Leukocyte Esterase 2+ H (Negative) Urine WBC (Auto) >30 H (0-5) /hpf Urine RBC (Auto) 0-4 (0-4) /hpf U Hyaline Cast (Auto) 0 (0-5) /lpf U Epithel Cells (Auto) >30 H (0-5) /lpf Urine Bacteria (Auto) 4+ H (Negative) 03/09/19 Range/Units 00:27 WBC (4.8-10.8) K/uL RBC (4.2-5.4) M/uL Hgb (12.0-16.0) g/dL Hct (37-47) % MCV (80-100) fL MCH (25-34) pg MCHC (32-36) g/dL RDW Std Deviation (36.4-46.3) fL RDW Coeff of Tamra (11.5-14.5) % Plt Count (130-400) K/uL MPV (7.4-10.4) fL Immature Gran % (Auto) % Neut % (Auto) % Lymph % (Auto) % [place] % (Auto) % Eos % (Auto) % Baso % (Auto) % Immature Gran # (Auto) (0.00-0.02) K/uL Neut # (Auto) (1.4-6.5) K/uL Lymph # (Auto) (1.2-3.4) K/uL [place] # (Auto) (0.11-0.59) K/uL Eos # (Auto) (0-0.5) K/uL Baso # (Auto) (0-0.2) K/uL Sodium 137 (136-145) mmol/L Potassium 5.1 (3.5-5.1) mmol/L Chloride 96 L (98-107) mmol/L Carbon Dioxide 35 H (21-32) mmol/L Anion Gap 6.0 (3-11) BUN 39 H (7-18) mg/dl Creatinine 1.93 H (0.6-1.2) mg/dl Est Cr Clr Drug Dosing Not Reportable Est GFR ( Amer) 31.4 Est GFR (Non-Af Amer) 27.1 BUN/Creatinine Ratio 20.1 H (10-20) Glucose 119 H (70-99) mg/dl Lactate (0.4-2.0) mmol/L Calcium 8.6 (8.5-10.1) mg/dl Magnesium 1.8 (1.8-2.4) mg/dl Total Bilirubin 0.7 (0.2-1) mg/dl AST 87 H (15-37) U/L ALT 73 (12-78) U/L Alkaline Phosphatase 75 (45-117) U/L Total Protein 6.6 (6.4-8.2) gm/dl Albumin 2.7 L (3.4-5.0) gm/dl Globulin 3.9 (2.5-4.0) gm/dl Albumin/Globulin Ratio 0.7 L (0.9-2) TSH 2.110 (0.300-4.500) uIu/ml Urine Color Urine Appearance (Clear) Urine pH (4.5-7.5) Ur Specific [place] (1.000-1.030) Urine Protein (Negative) Urine Glucose (UA) (Negative) Urine Ketones (Negative) Urine Blood (Negative) Urine Nitrite (Negative) Urine Bilirubin (Negative) Urine Urobilinogen (Negative) Ur Leukocyte Esterase (Negative) Urine WBC (Auto) (0-5) /hpf Urine RBC (Auto) (0-4) /hpf U Hyaline Cast (Auto) (0-5) /lpf U Epithel Cells (Auto) (0-5) /lpf Urine Bacteria (Auto) (Negative) Imaging Data Attestation: I personally reviewed and interpreted this imaging study as follows: My Impression: XR chest 1V portable: Cardiomegaly. Poor inspiratory effort. No focal consolidation. Limited by body habitus. ECG Data Attestation: I personally reviewed and interpreted this ECG as follows: Indication: altered mental status Rate (beats per minute): 90 Rhythm: normal sinus Findings: + other (Low voltage QRS); no PAC, no PVC, no ST depression, no ST elevation, no acute ischemic change and no ectopy Blood Pressure Blood Pressure Findings: Low blood pressure Blood Pressure Disposition: further management by hospitalist BILLY Steinberg This patient was evaluated and appeared to be in no significant distress. Patient is noted to be febrile with a borderline hypotension. Patient was given IV Tylenol and hydrated with normal saline solution. Laboratory work reveals a leukocytosis and an elevated lactic acid. UA is indicative of infection. Patient has an indwelling Garcia catheter and on previous urine cultures has been positive for Pseudomonas. IV Zosyn was administered. On reevaluation, the patient was clinically much improved. Temperature began to come down and patient was much more alert and speaking with her family. She was informed of the findings. Etiology of the fever/sepsis is likely urinary. Patient will be evaluated by the hospitalist service for admission and further management. Impression & Plan Sepsis, UTI (urinary tract infection), Fever Critical Care Time Critical Care Time: Yes Total Critical Care Time: 30 I have personally spent greater than 30 minutes of critical care time in the direct management of this patient. This includes bedside care, interpretation of diagnostic studies, and testing, discussion with consultants, patient, and family members, and other required patient management activities. This 30 minutes is in excess of all separately billable procedures. Discharge Plan Visit Data *Final* Discharge Date/Time: 03/09/19 03:30 Chief Complaint: Fever Stated Complaint: altered mental status ED Provider: Aleah Yu Discharge Problem: Sepsis, UTI (urinary tract infection), Fever Patient Disposition: Admitted As Inpatient Discharge Instructions Interventions: ED Discharge Assessment Last Done: 03/09/19 03:30 Discharge Problem: Sepsis Qualifiers: Sepsis type: sepsis due to unspecified organism Sepsis acute organ dysfunction status: without acute organ dysfunction Qualified Code(s): A41.9 - Sepsis, unspecified organism UTI (urinary tract infection) Qualifiers: Urinary tract infection type: site unspecified Hematuria presence: with hematuria Qualified Code(s): N39.0 - Urinary tract infection, site not specified Fever Qualifiers: Fever type: unspecified Qualified Code(s): R50.9 - Fever, unspecified The scribe's documentation has been prepared under my direction and personally reviewed by me in its entirety. I confirm that the note above accurately reflects all work, treatment, procedures, and medical decision making performed by me.
[2019-03-09 00:57] LABS: Alanine Aminotransferase 73 U/L (12-78); Albumin Level 2.7 gm/dl (3.4-5.0); Aspartate Aminotransferase 87 U/L (15-37); BUN Creatinine Ratio 20.1 (10-20); Blood Urea Nitrogen 39 mg/dl (7-18); Calcium 8.6 mg/dl (8.5-10.1); Carbon Dioxide 35 mmol/L (21-32); Chloride 96 mmol/L (98-107); Est GFR (African American) 31.4; Est GFR (Non-African American) 27.1; Glucose 119 mg/dl (70-99); Magnesium 1.8 mg/dl (1.8-2.4); Potassium 5.1 mmol/L (3.5-5.1); Sodium 137 mmol/L (136-145)
[2019-03-09] MEDS ORDERED: SODIUM CHLORIDE 0.9% 1000ML 1,000 ML IV ONE ×2 (00:58→01:08)
[2019-03-09 01:04] LABS: Appearance Urine Turbid (Clear); Bacteria Urine Automated 4+ (Negative); Blood Urine 3+ (Negative); Color Urine Dark Yellow; Epithelial Cell Urine Auto >30 /lpf (0-5); Glucose Urine UA Negative (Negative); Ketones Urine Negative (Negative); Leukocyte Esterase Urine 2+ (Negative); Nitrite Urine Positive (Negative); Protein Urine 2+ (Negative); Specific Gravity Urine 1.024 (1.000-1.030); Urobilinogen Urine Negative (Negative); WBC Urine Automated >30 /hpf (0-5)
[2019-03-09 01:08] LABS: Albumin Globulin Ratio 0.7 (0.9-2); Alkaline Phosphatase 75 U/L (45-117); Bilirubin,Total 0.7 mg/dl (0.2-1); Globulin 3.9 gm/dl (2.5-4.0); Total Protein 6.6 gm/dl (6.4-8.2)
[2019-03-09 01:23] LABS: Bilirubin Urine Negative (Negative); Ictotest Urine Negative (Negative)
[2019-03-09 01:26] LABS: Cast Urine Automated 0 /lpf (0-5); RBC Urine Automated 0-4 /hpf (0-4)
--- NOTE | 2019-03-09 02:49 | History & Physical Report ---
Date of Service March 09, 2019 Assessment & Plan (1) Sepsis: 64-year-old female was admitted on 09 March 2019 for fever and altered mental status. Please also see discharge summary on 20Nov2018 with similar symptoms ultimately due to severe sepsis caused by Pseudomonas UTI. Sepsis, altered mental status, acute kidney injury, urinary tract infection: Progressively worsening fatigue/weakness onset over past five days. Denies CP or acute SOB, abdominal symptoms, or focal new extremity pains. At present, UA is highly suggestive as source. Last Garcia catheter swap out was 15Aug, usually q 2 weeks. Suspect HOLLY is significantly prerenal. - Urine culture in November 2018 grew pansensitive Pseudomonas. At home is on daily nitrofurantoin and Cystex plus. - In ED, T-max 38.9, not tachycardic, lowest BP 79/55. SpO2 96% on 3 L nasal cannula. WBC 14. Lactate 2.5 creatinine 1.9 (prior 1.0) with BUN 39. TSH 2.1. UA is dirty. pCXR is rotated with question of congestion at the bases but otherwise clear (formal radiology read pending). Blood and urine cultures pending. - In ED, treated with 2 L normal saline IVF, Tylenol, and Zosyn. On serial exams, her mental status appears already improved. - Continue IV fluids and Zosyn pending culture results. Recheck lactate and BMP. Continue home lactulose. Anemia, iron deficiency: Admit hemoglobin 8.6, MCV 87. Recent comparisons in the 10s. Is on iron at home. No reported recent bleeding. Monitor for now. Ongoing medical issues: - Hypertension, hyperlipidemia: Continue home atorvastatin, Coreg, Lasix. --- Hold home lisinopril due to HOLLY. - COPD, ZACKARY, obesity hypoventilation syndrome, chronic hypoxic and hypercapnic respiratory failure: At home is on 3 L NC oxygen continuously. Previously used BiPAP nightly for ZACKARY but currently only CPAP. Admit BMP bicarb 35. --- Continue home Spiriva. Duo nebs as needed. Start with CPAP for sleeping. - Type 2 diabetes: On insulin pump at home as well as metformin. --- Will hold her metformin here. Pharmacy diabetic consult initially due to sepsis. Check latest HbA1c. - Ambulatory dysfunction, chronic indwelling Garcia catheter: Due to ambulatory dysfunction from chronic lumbar spine issues. - Morbid obesity: Admit weight 190.1 kg. Bedbound for over past year. --- Ordered bariatric bed. Nystatin to pannus folds. - Psoriasis: Continue local betamethasone. - Fatty liver disease: Seen by gastroenterology in November, recommended routine monitoring. Admit AST 87. --- Continue home lactulose. Will check an ammonia level. - Chronic pain syndrome, knee osteoarthritis: On gabapentin at home as well as oxycodone. --- Reduced the dose of her gabapentin due to HOLLY. Due to sepsis and resolving AMS, holding narcotics. No Tylenol due to elevated AST. No NSAIDs due to HOLLY. Thus we are considerably limited on her options for acute pain control. Can continue voltaren gel from home for bilateral knees. - Hypothyroidism: Continue home levothyroxine. Code status: Full code. Diet: DM 2. DVT prophy: Heparin TID. PT/OT: Ordered. Disbo: Admit to PCU. - Early consult to case management. Patient relays concerns about transportation and paying for medical bills. Says her is working but also undergoing chemotherapy. (2) Altered mental status: (3) HOLLY (acute kidney injury): (4) UTI (urinary tract infection): (5) Anemia: (6) Iron deficiency: (7) Hypertension: (8) HLD (hyperlipidemia): (9) COPD (chronic obstructive pulmonary disease): (10) ZACKARY (obstructive sleep apnea): (11) Obesity hypoventilation syndrome: (12) Chronic respiratory failure with hypoxia and hypercapnia: (13) DM II (diabetes mellitus, type II), controlled: (14) Ambulatory dysfunction: (15) Chronic indwelling Garcia catheter: (16) Morbid obesity: (17) Psoriasis: (18) NAFLD (nonalcoholic fatty liver disease): (19) Chronic pain syndrome: (20) Knee osteoarthritis: (21) Hypothyroid: History of Present Illness Primary Care Provider: Robbie Yeh 64-year-old female was brought in by EMS due to 's concerns for fever and worsening mental status earlier this morning. Patient's was not present during the H&P, therefore the history comes from the patient and the medical record. Presently, the patient is awake, alert, and very lucidly conversational. She says over the past five or so days she has had some progressive fatigue. Because of this she has had decreased fluid and food intake, so much so that she says her has to wake her up in order to drink fluids. She denies knowing of any particular reason, though does recall that she felt like this during her last UTI. She has remained bedbound for over the past year. She has a chronic indwelling Garcia catheter due to her immobility that gets changed out every two weeks, most recently this past 15Aug. She denies any chest pains, acute shortness of breath, abdominal pain, N/V/D, or focal extremity pains. She does have ongoing chronic bilateral hip and knee pain. She has some level of home health. Her primary caregiver is her who works daily but is also undergoing chemotherapy for a reported abdominal cancer. She says this therapy seems to be going well but does tax him. She relays some concerns about transportation to the hospital and medical appointments as well as being able to pay for her medical care. - Past medical history includes hypertension, hyperlipidemia, COPD, ZACKARY, chronic hypoxic and hypercapnic respiratory failure, type 2 diabetes, ambulatory dysfunction, chronic indwelling Garcia catheter, morbid obesity, metabolic ence phalopathy, acute hepatitis, fatty liver, chronic lumbar spine issues, obesity hypoventilation syndrome, psoriasis, chronic pain syndrome from knee osteoarthritis, iron deficiency, folate deficiency, hypothyroidism - Past surgical history includes x2, umbilical hernia repair. - Social history includes having smoked previously. No reported alcohol or substance abuse. Lives at home with her . Allergies Allergy/AdvReac Type Severity Reaction Status Date / Time No Known Allergies Allergy Unverified 11/15/18 08:22 Home Medications Home Medications Medication Instructions Recorded Confirmed Type Humulin R U-500 (Conc) Insulin 0 unit SUBCUT DAILY 11/15/18 03/09/19 History Prilosec OTC 20 mg PO QAM 11/15/18 03/09/19 History Spiriva with HandiHaler 1 cap INHALATION QAM 11/15/18 03/09/19 History atorvastatin [Lipitor] 10 mg PO HS 11/15/18 03/09/19 History betamethasone dipropionate 1 applic TOPICAL BID 11/15/18 03/09/19 History carvedilol 3.125 mg PO BID 11/15/18 03/09/19 History cholecalciferol (vitamin D3) 5,000 unit PO 3XWK 11/15/18 03/09/19 History [Vitamin D3] cyanocobalamin (vitamin B-12) 1,000 mcg IM Q30D 11/15/18 03/09/19 History diclofenac sodium 2 g TOPICAL QID PRN 11/15/18 03/09/19 History docusate sodium 100 mg PO BID PRN 11/15/18 03/09/19 History furosemide [Lasix] 40 mg PO BID 11/15/18 03/09/19 History ketoconazole 1 applic TOPICAL 2XWK 11/15/18 03/09/19 History metformin 850 mg PO TID 11/15/18 03/09/19 History nitrofurantoin macrocrystal 50 mg PO HS 11/15/18 03/09/19 History nystatin 1 applic TOPICAL PM 11/15/18 03/09/19 History ondansetron HCl [Zofran] 4 mg PO TID PRN 11/15/18 03/09/19 History oxycodone 20 mg PO QID 11/15/18 03/09/19 History diphenhydramine HCl [Benadryl] 25 mg PO Q6H PRN #0 cap 11/19/18 03/09/19 Rx gabapentin 300 mg PO TID #90 cap 11/19/18 03/09/19 Rx cranberry 450 mg PO .DAILY@NOON 03/09/19 03/09/19 History ferrous sulfate 325 mg PO .DAILY@NOON 03/09/19 03/09/19 History fluticasone propion-salmeterol 1 inh INHALATION BID 03/09/19 03/09/19 History [Wixela Inhub] lactulose 30 ml PO BID 03/09/19 03/09/19 History levothyroxine 25 mcg PO DAILY 03/09/19 03/09/19 History lisinopril 5 mg PO DAILY 03/09/19 03/09/19 History magnesium oxide 400 mg PO .DAILY@NOON 03/09/19 03/09/19 History methenamine-sodium salicylate 2 tab PO TID PRN 03/09/19 03/09/19 History [Cystex Plus (methenamine-vinh)] omega [id number] oil [Fish Oil] 1 cap PO HS 03/09/19 03/09/19 History Past Med/Surg History Medical History COPD (chronic obstructive pulmonary disease) (Chronic) Chronic indwelling Garcia catheter (Chronic) Chronic respiratory failure with hypoxia and hypercapnia (Chronic) on home o2, 3 L continuously DM II (diabetes mellitus, type II), controlled (Chronic) HLD (hyperlipidemia) (Chronic) HTN (hypertension) (Chronic) Obesity hypoventilation syndrome (Chronic) Psoriasis (Chronic) Chronic pain syndrome 2nd to OA of knees; takes chronic opiates Morbid obesity with BMI of 60.0-69.9, adult Recurrent UTI (urinary tract infection) Surgical History Surgical history unknown Family History Father Lung disease Mother , some form of uterine disease? No problems noted. 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 Eyes: Denies any visual loss or diplopia ENT: Denies any ear/nose/throat pain or difficulty speaking or swallowing Respiratory: Denies any dyspnea, cough, hemoptysis Cardiovascular: Denies any chest pain or acute feeling of edema Gastrointestinal: Denies any abdominal pain, nausea/vomiting/diarrhea Musculoskeletal: Denies any acute extremity pains, myalgias, or focal weakness Skin: Denies any known acute rashes or lesions Neuro: Denies any headache, acute focal weakness or numbness, or difficulties with speech or swallow. Hematologic: Denies any easy bleeding or bruising Physical Exam Physical Exam: GENERAL: Awake, alert, pleasantly conversant, and does not appear in any distress (respiratory or otherwise). HENT: Normocephalic, atraumatic. Oropharynx unremarkable. EYES: Normal conjunctiva. Sclera non-icteric. NECK: Inspection normal. Supple and full ROM. No nuchal rigidity. CARDIAC: +S1S2 RRR, no murmurs. RESPIRATORY: Clear to auscultation. No wheezes or rales. Normal respiratory effort. Nasal cannula oxygen in place. GI: +BS, soft, non-distended. No tenderness to palpation. No rebound or guarding. Morbidly obese with significant pannus. Suprapubic Garcia catheter in place. EXTREMITIES: Patient can lift her arms and move her toes. Not much movement of her legs due to habitus. Legs have thick layers of a psoriatic-like rash. NEURO: No gross neuro deficits. Alert, oriented, answering questions and following commands easily and appropriately. Results & Data Vital Signs (Past 12 Hours) Vital Signs Temp Pulse Resp BP Pulse Ox 03/09/19 02:15 74 21 112/56 L 97 03/09/19 02:01 75 19 94/52 L 98 03/09/19 01:45 74 20 88/57 L 97 03/09/19 01:31 77 20 107/70 96 03/09/19 01:30 77 18 96 03/09/19 01:15 77 18 92/65 L 94 03/09/19 01:03 37.9 C H 78 21 102/58 L 96 03/09/19 01:00 78 22 83/57 L 95 03/09/19 00:59 78 94 03/09/19 00:45 79 24 95 03/09/19 00:35 80 20 104/49 L 93 03/09/19 00:32 81 19 79/55 L 94 03/09/19 00:15 85 22 03/09/19 00:01 87 18 97/56 L 03/08/19 23:58 87 20 89/78 L 03/08/19 23:45 89 22 03/08/19 23:30 89 23 91 03/08/19 23:22 93 H 25 H 113/69 91 03/08/19 23:20 38.9 C H 93 H 22 113/69 94 Laboratory Results 03/09/19 03/09/19 03/09/19 Range/Units 00:27 00:27 00:24 WBC 14.45 H (4.8-10.8) K/uL RBC 3.29 L (4.2-5.4) M/uL Hgb 8.6 L (12.0-16.0) g/dL Hct 28.7 L (37-47) % MCV 87.2 (80-100) fL MCH 26.1 (25-34) pg MCHC 30.0 L (32-36) g/dL RDW Std Deviation 54.5 H (36.4-46.3) fL RDW Coeff of Tamra 17.1 H (11.5-14.5) % Plt Count 288 (130-400) K/uL MPV 9.5 (7.4-10.4) fL Immature Gran % (Auto) 1.0 % Neut % (Auto) 88.2 % Lymph % (Auto) 5.0 % [place] % (Auto) 5.7 % Eos % (Auto) 0.0 % Baso % (Auto) 0.1 % Immature Gran # (Auto) 0.15 H (0.00-0.02) K/uL Neut # (Auto) 12.74 H (1.4-6.5) K/uL Lymph # (Auto) 0.72 L (1.2-3.4) K/uL [place] # (Auto) 0.82 H (0.11-0.59) K/uL Eos # (Auto) 0.00 (0-0.5) K/uL Baso # (Auto) 0.02 (0-0.2) K/uL Sodium 137 (136-145) mmol/L Potassium 5.1 (3.5-5.1) mmol/L Chloride 96 L (98-107) mmol/L Carbon Dioxide 35 H (21-32) mmol/L Anion Gap 6.0 (3-11) BUN 39 H (7-18) mg/dl Creatinine 1.93 H (0.6-1.2) mg/dl Est Cr Clr Drug Dosing Not Reportable Est GFR ( Amer) 31.4 Est GFR (Non-Af Amer) 27.1 BUN/Creatinine Ratio 20.1 H (10-20) Glucose 119 H (70-99) mg/dl Lactate 2.5 H* (0.4-2.0) mmol/L Calcium 8.6 (8.5-10.1) mg/dl Magnesium 1.8 (1.8-2.4) mg/dl Total Bilirubin 0.7 (0.2-1) mg/dl AST 87 H (15-37) U/L ALT 73 (12-78) U/L Alkaline Phosphatase 75 (45-117) U/L Total Protein 6.6 (6.4-8.2) gm/dl Albumin 2.7 L (3.4-5.0) gm/dl Globulin 3.9 (2.5-4.0) gm/dl Albumin/Globulin Ratio 0.7 L (0.9-2) TSH 2.110 (0.300-4.500) uIu/ml Urine Color Urine Appearance (Clear) Urine pH (4.5-7.5) Ur Specific [place] (1.000-1.030) Urine Protein (Negative) Urine Glucose (UA) (Negative) Urine Ketones (Negative) Urine Blood (Negative) Urine Nitrite (Negative) Urine Bilirubin (Negative) Urine Urobilinogen (Negative) Ur Leukocyte Esterase (Negative) Urine WBC (Auto) (0-5) /hpf Urine RBC (Auto) (0-4) /hpf U Hyaline Cast (Auto) (0-5) /lpf U Epithel Cells (Auto) (0-5) /lpf Urine Bacteria (Auto) (Negative) 03/09/19 Range/Units 00:10 WBC (4.8-10.8) K/uL RBC (4.2-5.4) M/uL Hgb (12.0-16.0) g/dL Hct (37-47) % MCV (80-100) fL MCH (25-34) pg MCHC (32-36) g/dL RDW Std Deviation (36.4-46.3) fL RDW Coeff of Tamra (11.5-14.5) % Plt Count (130-400) K/uL MPV (7.4-10.4) fL Immature Gran % (Auto) % Neut % (Auto) % Lymph % (Auto) % [place] % (Auto) % Eos % (Auto) % Baso % (Auto) % Immature Gran # (Auto) (0.00-0.02) K/uL Neut # (Auto) (1.4-6.5) K/uL Lymph # (Auto) (1.2-3.4) K/uL [place] # (Auto) (0.11-0.59) K/uL Eos # (Auto) (0-0.5) K/uL Baso # (Auto) (0-0.2) K/uL Sodium (136-145) mmol/L Potassium (3.5-5.1) mmol/L Chloride (98-107) mmol/L Carbon Dioxide (21-32) mmol/L Anion Gap (3-11) BUN (7-18) mg/dl Creatinine (0.6-1.2) mg/dl Est Cr Clr Drug Dosing Est GFR ( Amer) Est GFR (Non-Af Amer) BUN/Creatinine Ratio (10-20) Glucose (70-99) mg/dl Lactate (0.4-2.0) mmol/L Calcium (8.5-10.1) mg/dl Magnesium (1.8-2.4) mg/dl Total Bilirubin (0.2-1) mg/dl AST (15-37) U/L ALT (12-78) U/L Alkaline Phosphatase (45-117) U/L Total Protein (6.4-8.2) gm/dl Albumin (3.4-5.0) gm/dl Globulin (2.5-4.0) gm/dl Albumin/Globulin Ratio (0.9-2) TSH (0.300-4.500) uIu/ml Urine Color Dark Yellow Urine Appearance Turbid A (Clear) Urine pH 5.0 (4.5-7.5) Ur Specific [place] 1.024 (1.000-1.030) Urine Protein 2+ H (Negative) Urine Glucose (UA) Negative (Negative) Urine Ketones Negative (Negative) Urine Blood 3+ H (Negative) Urine Nitrite Positive A (Negative) Urine Bilirubin Negative (Negative) Urine Urobilinogen Negative (Negative) Ur Leukocyte Esterase 2+ H (Negative) Urine WBC (Auto) >30 H (0-5) /hpf Urine RBC (Auto) 0-4 (0-4) /hpf U Hyaline Cast (Auto) 0 (0-5) /lpf U Epithel Cells (Auto) >30 H (0-5) /lpf Urine Bacteria (Auto) 4+ H (Negative) Medications Administered Discontinued Medications Acetaminophen (Ofirmev) 1,000 mg IV NOW STA Stop: 03/08/19 23:46 Last Admin: 03/08/19 23:59 Dose: 1,000 mg Documented by: [id number] Piperacillin Sod/Tazobactam Sod (Zosyn) 4.5 gm in 120 mls @ 240 mls/hr IV NOW ONE Stop: 03/09/19 00:27 Last Infusion: 03/09/19 01:31 Dose: 0 mls/hr Documented by: [id number] Admin: 03/09/19 01:03 Dose: 240 mls/hr Documented by: [id number] Sodium Chloride (Nss 1000ml) 1,000 mls @ 999 mls/hr IV .Q1H1M ONE Stop: 03/09/19 01:58 Last Infusion: 03/09/19 02:29 Dose: 0 mls/hr Documented by: [id number] Admin: 03/09/19 01:07 Dose: 999 mls/hr Documented by: [id number] Sodium Chloride (Nss 1000ml) 1,000 mls @ 999 mls/hr IV .Q1H1M ONE Stop: 03/09/19 02:08 Last Infusion: 03/09/19 01:31 Dose: 0 mls/hr Documented by: [id number] Admin: 03/09/19 00:30 Dose: 999 mls/hr Documented by: [id number] Code Status & VTE Plan Code Status Full code VTE Prophylaxis Plan VTE Prophylaxis will be ordered: Yes Supervising Physician Co-Signing Physician Notes Attending addendum: I have physically seen this patient, have supervised the medical residents activities, and agree with the H&P unless as otherwise noted. Assessment and Plan: Sepsis/history of sepsis during admission 11/15-11/20 secondary to Pseudomonas UTI- Received 2 L of normal saline in the ED and Zosyn IV. Continue Zosyn IV and IV fluid rehydration. Follow urine cultures and blood cultures. Briefly hypotensive in the ED blood pressure 79/55. Did respond to IV fluid resuscitation. Admits to full PCU with telemetry bed. Acute kidney injury/hypertension- Hold lisinopril. IV fluid resuscitation with normal saline as noted above. Follow serial BMP and magnesium levels. Remainder of orders and notations as noted. PG Care Time/CCT Total # of Minutes Spent Total Time Spent with Patient: Total time spent is greater than 50% in coordination of care (as documented) at patient's floor/unit and/or counseling patient: Resident Activity Tracking Resident Involvement: Resident Care Provided Care Provided: Adult Hospital Medicine (1) UTI (urinary tract infection) Hematuria presence: with hematuria Urinary tract infection type: site unspecified Qualified Code(s): N39.0 - Urinary tract infection, site not specified; R31.9 - Hematuria, unspecified
[2019-03-09] MEDS ORDERED: ALBUT/IPRATROP 3MG/0.5MG NEB 3 ML VIAL NEB PRN (04:05)
[2019-03-09] MEDS ORDERED: DOCUSATE SODIUM 100 MG CAP PO PRN (04:05)
[2019-03-09] MEDS ORDERED: NON-FORMULARY MEDICATION (Cranberry Fruit [Cranberry] 450 MG) PO SCH (04:05)
[2019-03-09] MEDS ORDERED: PIPERACILL/TAZOBAC CONSULT ACTIVE PRN (04:05)
[2019-03-09] MEDS ORDERED: ONDANSETRON 4 MG TAB PO PRN (04:05)
[2019-03-09] MEDS: LACTATED RINGER'S 1,000 ML IV SCH ×2 (04:32→16:00)
[2019-03-09] MEDS ORDERED: PHARMACY GLYCEMIC MGMT CONSULT PRN (04:35)
[2019-03-09] MEDS: DICLOFENAC SOD 1% GEL 100 GM TUBE EXT PRN ×2 (04:42→09:09)
[2019-03-09 04:52] LABS: BUN Creatinine Ratio 20.7 (10-20); Calcium 8.6 mg/dl (8.5-10.1); Creatinine Clr Calc Pharmacy 52.7 ml/min; Est GFR (Non-African American) 26.7
[2019-03-09] MEDS ORDERED: DEXTROSE 50% 50 ML SYRINGE IV PRN (05:45)
[2019-03-09] MEDS ORDERED: CARBOHYDRATES FOR HYPOGLYCEMIA PO PRN (05:45)
[2019-03-09] MEDS ORDERED: GLUCOSE 40% GEL 15 GM TUBE PO PRN (05:45)
[2019-03-09] MEDS ORDERED: GLUCOSE 10 TABS/TUBE PO PRN (05:45)
[2019-03-09] MEDS ORDERED: GLUCAGON FOR INJ 1 MG VIAL SQ PRN (05:45)
[2019-03-09] MEDS: PIPERACILLIN/TAZOBACTAM 4.5 GM in DEXTROSE 5% 100 ML IV SCH ×3 (06:22→21:12)
[2019-03-09] MEDS: LEVOTHYROXINE SODIUM 25 MCG TABLET PO SCH (06:23)
[2019-03-09 07:04] LABS: INR 1.2 (0.9-1.1)
--- NOTE | 2019-03-09 07:09 | XRay Report ---
XR chest 1V portable HISTORY: weakness COMPARISON: Chest 11/15/2018. FINDINGS: There are low lung volumes. The heart remains enlarged. Mild central pulmonary vascular con gestion which has improved. No pneumothorax. No pleural effusions. Left basilar linear densities. IMPRESSION: 1. Left basilar linear densities. These are nonspecific but favor subsegmental atelectasis. 2. Stable cardiomegaly. 3. Interval improvement in the mild pulmonary vascular congestion. Electronically signed by: Willy Gaffney M.D. 03/09/2019 7:08 AM
[2019-03-09 07:24] LABS: Estimated Average Glucose 137 mg/dl; Hemoglobin A1C 6.4 % (4.5-5.6)
--- NOTE | 2019-03-09 08:09 | Pharmacy Report ---
Glycemic Control Consultation - Date of Service March 09, 2019 - Scope Scope: Glycemic Pharmacist consulted by Dr Gilmore on 03/08/19 for glycemic control and to write orders per [facility] inpatient glycemic control protocol - Objective Weight: 190.1 kg Accuchecks BSG (last 24hrs): 03/09/19 03/09/19 03/09/19 00:27 04:03 04:28 Glucose 119 H 125 H POC Glucose 136 H 03/09/19 07:44 Glucose POC Glucose 221 H Laboratory Data (last 24hrs): 03/09/19 03/09/19 00:27 04:28 Potassium 5.1 5.0 Carbon Dioxide 35 H 36 H Anion Gap 6.0 5.0 Creatinine 1.93 H 1.95 H Est Cr Clr Drug Dosing Not Reportable 52.7 HbA1c: Hemoglobin A1c 6.4 % (4.5-5.6) H 03/09/19 04:28 - Recent Pertinent Medications Outpatient Anti-diabetic Regimen: * U500 insulin pump (up to 350 units/day) * Metformin 850mg PO TID * A1c = 6.4 % 03/09/19 Risk Factors for Insulin Resistance: * Infection: Sepsis UTI, IV Zosyn * Diet: Type 2 DM - Assessment & Plan Assessment & Plan: ASSESSMENT: * 64 year old female, morbidly obese, admitted for sepsis, UTI, on IV zosyn, recent admission in November for pseudomonas UTI. * Patient known to pharmacy glycemic service from admissions in 2017, but was not consulted on recent admission in November 2018, during that time patient was using Lantus 35 units BID, CF 6, CR 2, with blood sugars above goal in 200s. Patient did well on U500 insulin under pharmacy consult in 2018. Will begin wi th reduced dose of home U500. * Patient not in good mental state to use home pump during illness/admission. * Will begin with half of patient home dose of U500 and titrate up, fasting blood sugar elevated at 221mg/dl this morning since patient has had no insulin since pump was off last night. Will also give CF bolus insulin, and no CR, as U500 will give prandial coverage. * ADA & AACE recommend a goal blood sugar range 140-180 mg/dl for the majority of critically ill & non-critically ill patients. However, more stringent targets may be selected in individual cases. Will utilize more stringent goal of 110-140mg/dl based on patient age & comorbidities. Additionally, tighter glycemic control is warranted to facilitate infection healing. PLAN FOR INPATIENT GLYCEMIC CONTROL: * Holding outpatient oral diabetes medications and insulin pump * Basal & prandial insulin * U500 - 90 units SQ BID with breakfast and dinner and titrate to goal blood sugar * Bolus insulin * NovoLog per scale ACHS or Q6hrs while NPO * Goal Range: Low 110 mg/dL - High 140 mg/dL * Correction Factor: 10 mg/dL/unit * Please note that the plan above was derived based on current level of insulin resistance and hospital stress. These recommendations are appropriate for inpatient admission only. Plan of care upon discharge will need to be reassessed to avoid potential outpatient hypo/hyperglycemia. Thank you.
[2019-03-09] MEDS: HUMULIN R U SC SCH ×2 (09:03→17:47)
[2019-03-09] MEDS: INSULIN ASPART 100 UNITS/ML 3 ML PEN SC SCH ×4 (09:03→21:07)
[2019-03-09] MEDS: HEPARIN SOD 5,000 UNIT/0.5 ML VIAL SQ SCH ×3 (09:05→21:05)
[2019-03-09] MEDS: CHOLECALCIFEROL 1,000 UNITS TAB PO SCH (09:06)
[2019-03-09] MEDS: GABAPENTIN 300 MG CAP PO SCH ×2 (09:06→21:05)
[2019-03-09] MEDS: PANTOprazole 40 MG TAB PO SCH (09:06)
[2019-03-09] MEDS: CARVEDILOL 3.125 MG TAB PO SCH ×2 (09:07→21:04)
[2019-03-09] MEDS: TIOTROPIUM BROMIDE 5 PUFF/90 MCG INH INH SCH (09:07)
[2019-03-09] MEDS: LACTULOSE SYRUP 20 GM/30 ML UDC PO SCH ×2 (09:08→21:08)
[2019-03-09] MEDS: FUROSEMIDE 40 MG TAB PO SCH ×2 (09:08→17:27)
[2019-03-09] MEDS: BETAMETHASONE DIP AUG (DIPROLENE) 0.05% CR 15 GM TUBE EXT SCH ×2 (09:08→21:07)
[2019-03-09] MEDS: FLUTICASONE/SALMETEROL 250/50 (ADVAIR) 14 PUFF/1 INHALER INH SCH ×2 (09:08→21:03)
[2019-03-09] MEDS ORDERED: OXYCODONE HCL IR 5 MG TAB (IMMEDIATE RELEASE) PO PRN ×2 (12:15→16:14)
[2019-03-09] MEDS: MAGNESIUM OXIDE 400 MG TAB PO SCH (12:19)
[2019-03-09] MEDS: FERROUS SULFATE 325 MG TAB PO SCH (12:19)
--- NOTE | 2019-03-09 15:42 | Family Medicine Progress Note ---
Date of Service March 09, 2019 Assessment & Plan (1) Sepsis: 64-year-old female was admitted on 09 March 2019 for fever and altered mental status. Please also see discharge summary on 20Nov2018 with similar symptoms ultimately due to severe sepsis caused by Pseudomonas UTI. Sepsis, altered mental status, acute kidney injury, urinary tract infection: Progressively worsening fatigue/weakness onset over past five days. Denies CP or acute SOB, abdominal symptoms, or focal new extremity pains. At present, UA is highly suggestive as source. Last Garcia catheter swap out was 15Aug, usually q 2 weeks. Suspect HOLLY is significantly prerenal. - Urine culture in November 2018 grew pansensitive Pseudomonas. At home is on daily nitrofurantoin and Cystex plus. - In ED, T-max 38.9, not tachycardic, lowest BP 79/55. SpO2 96% on 3 L nasal cannula. WBC 14. Lactate 2.5 creatinine 1.9 (prior 1.0) with BUN 39. TSH 2.1. UA is dirty. pCXR is rotated with question of congestion at the bases but otherwise clear (formal radiology read pending). Blood and urine cultures pending. - In ED, treated with 2 L normal saline IVF, Tylenol, and Zosyn. On serial exams, her mental status appears already improved. - Continue IV fluids and Zosyn pending culture results. Recheck lactate and BMP. Continue home lactulose. Anemia, iron deficiency: Admit hemoglobin 8.6, MCV 87. Recent comparisons in the 10s. Is on iron at home. No reported recent bleeding. Monitor for now. Ongoing medical issues: - Hypertension, hyperlipidemia: Continue home atorvastatin, Coreg, Lasix. --- Hold home lisinopril due to HOLLY. - COPD, ZACKARY, obesity hypoventilation syndrome, chronic hypoxic and hypercapnic respiratory failure: At home is on 3 L NC oxygen continuously. Previously used BiPAP nightly for ZACKARY but currently only CPAP. Admit BMP bicarb 35. --- Continue home Spiriva. Duo nebs as needed. Start with CPAP for sleeping. - Type 2 diabetes: On insulin pump at home as well as metformin. --- Will hold her metformin here. Pharmacy diabetic consult initially due to sepsis. Check latest HbA1c. - Ambulatory dysfunction, chronic indwelling Garcia catheter: Due to ambulatory dysfunction from chronic lumbar spine issues. - Morbid obesity: Admit weight 190.1 kg. Bedbound for over past year. --- Ordered bariatric bed. Nystatin to pannus folds. - Psoriasis: Continue local betamethasone. - Fatty liver disease: Seen by gastroenterology in November, recommended routine monitoring. Admit AST 87. --- Continue home lactulose. Will check an ammonia level. - Chronic pain syndrome, knee osteoarthritis: On gabapentin at home as well as oxycodone. --- Reduced the dose of her gabapentin due to HOLLY. Due to sepsis and resolving AMS, holding narcotics. No Tylenol due to elevated AST. No NSAIDs due to HOLLY. Thus we are considerably limited on her options for acute pain control. Can continue voltaren gel from home for bilateral knees. - Hypothyroidism: Continue home levothyroxine. Code status: Full code. Diet: DM 2. DVT prophy: Heparin TID. PT/OT: Ordered. Disbo: Admit to PCU. - Early consult to case management. Patient relays concerns about transportation and paying for medical bills. Says her is working but also undergoing chemotherapy. (2) Altered mental status: (3) HOLLY (acute kidney injury): (4) UTI (urinary tract infection): (5) Anemia: (6) Iron deficiency: (7) Hypertension: (8) HLD (hyperlipidemia): (9) COPD (chronic obstructive pulmonary disease): (10) ZACKARY (obstructive sleep apnea): (11) Obesity hypoventilation syndrome: (12) Chronic respiratory failure with hypoxia and hypercapnia: (13) DM II (diabetes mellitus, type II), controlled: (14) Ambulatory dysfunction: (15) Chronic indwelling Garcia catheter: (16) Morbid obesity: (17) Psoriasis: (18) NAFLD (nonalcoholic fatty liver disease): (19) Chronic pain syndrome: (20) Knee osteoarthritis: (21) Hypothyroid: Supervising Physician Co-Signing Physician Notes I personally examined the patient and verified all song points of history and exam, discussed case, and agree with decision making with Dr Mancilla. Feeling better. Pleased with pain control. No other new complaints. Vitals noted, in general she is awake and alert pleasant no distress. HEENT normocephalic atraumatic mucous members moist. Breathing unlabored no accessory muscle use good effort. Skin shows no rashes no pallor or icterus. Urinary tract infection related to chronic indwelling Foleymore than likely gram-negative given her prior track record. Agree with Enrique. Await cultures. She does seem to be improving. Chronic painagree that if she needs to be on a narcotic regimen, that a long- acting/short acting regimen seems to be more appropriate than an entirely short acting regimen. She seems to agree and appreciates better pain control. Certainly it is questionable whether or not in the long-term narcotics pain regimen is in her best interest, but given her long track record of being on oxycodone, as well as her significant physical dependency, right now altering her regimen to affect better pain control seems to be the most reasonable step. Down the road with better overall pain control can trial weaning of narcoticbut this would almost certainly be as an outpatient given the duration that would be required. DVT prophylaxisheparin subcu Subjective Feels like she has much improved this morning, but maintains concern about why she continues to get these infections in her urine. Had more lateral leg pain overnight, that she attributes to her fibromyalgia, for which she typically takes Oxycodone 20mg at minimum four times a day. No maintained urinary symptoms, or does not feel herself urinating when she is off the pain medication, but can when she is consistently taking it and is able to warn family in order to help them keep her from urinating herself. and daughter are primary care-givers while at home. Review of Systems Constitutional: no fever, no chills and no sweats Eyes: no diplopia and no worsening vision Respiratory: no cough, no dyspnea and no snoring Cardiovascular: no chest pain, no palpitations and no edema Gastrointestinal: no abdominal pain, no nausea, no vomiting and no change in bowel habits Genitourinary: no dysuria, no hematuria and no flank pain Musculoskeletal: + back pain, + radicular pain and + myalgia Hematologic / Lymphatic: no lymphadenopathy Physical Exam Constitutional: well developed, well nourished, + morbidly obese and cooperative Eyes: PERRL and EOM intact bilaterally Respiratory: normal respiratory effort Auscultation: lungs clear to auscultation bilaterally; no crackles, no rales and no wheezes Cardiovascular: Rate/Rhythm: regular rate and regular rhythm Heart Sounds: normal S1 and normal S2; no click, no murmur and no cardiac rub Extremities: + edema (uncertain edema ) Results & Data Vital Signs (Past 12 Hours) Vital Signs Temp Pulse Pulse Resp BP Pulse Ox Pulse Ox 03/09/19 11:37 36.8 C 65 22 105/60 98 03/09/19 07:45 36.8 C 59 L 17 117/51 L 97 03/09/19 05:39 62 92/52 L 03/09/19 05:00 98 03/09/19 04:30 63 18 101/54 L 98 03/09/19 03:45 37.2 C 71 21 99/48 L 96 Laboratory Results 03/09/19 03/09/19 03/09/19 Range/Units 11:35 07:44 06:27 WBC (4.8-10.8) K/uL RBC (4.2-5.4) M/uL Hgb (12.0-16.0) g/dL Hct (37-47) % MCV (80-100) fL MCH (25-34) pg MCHC (32-36) g/dL RDW Std Deviation (36.4-46.3) fL RDW Coeff of Tamra (11.5-14.5) % Plt Count (130-400) K/uL MPV (7.4-10.4) fL Immature Gran % (Auto) % Neut % (Auto) % Lymph % (Auto) % Stoddard % (Auto) % Eos % (Auto) % Baso % (Auto) % Immature Gran # (Auto) (0.00-0.02) K/uL Neut # (Auto) (1.4-6.5) K/uL Lymph # (Auto) (1.2-3.4) K/uL Stoddard # (Auto) (0.11-0.59) K/uL Eos # (Auto) (0-0.5) K/uL Baso # (Auto) (0-0.2) K/uL PT 12.0 (9.0-12.0) Seconds INR 1.2 H (0.9-1.1) Sodium (136-145) mmol/L Potassium (3.5-5.1) mmol/L Chloride (98-107) mmol/L Carbon Dioxide (21-32) mmol/L Anion Gap (3-11) BUN (7-18) mg/dl Creatinine (0.6-1.2) mg/dl Est Cr Clr Drug Dosing Est GFR ( Amer) Est GFR (Non-Af Amer) BUN/Creatinine Ratio (10-20) Glucose (70-99) mg/dl POC Glucose 172 H 221 H (70-99) Estimat Average Glucose mg/dl Hemoglobin A1c (4.5-5.6) % Lactate (0.4-2.0) mmol/L Calcium (8.5-10.1) mg/dl Magnesium (1.8-2.4) mg/dl Total Bilirubin (0.2-1) mg/dl AST (15-37) U/L ALT (12-78) U/L Alkaline Phosphatase (45-117) U/L Ammonia (11-32) umol/L Total Protein (6.4-8.2) gm/dl Albumin (3.4-5.0) gm/dl Globulin (2.5-4.0) gm/dl Albumin/Globulin Ratio (0.9-2) TSH (0.300-4.500) uIu/ml Urine Color Urine Appearance (Clear) Urine pH (4.5-7.5) Ur Specific Hartshorn (1.000-1.030) Urine Protein (Negative) Urine Glucose (UA) (Negative) Urine Ketones (Negative) Urine Blood (Negative) Urine Nitrite (Negative) Urine Bilirubin (Negative) Urine Urobilinogen (Negative) Ur Leukocyte Esterase (Negative) Urine WBC (Auto) (0-5) /hpf Urine RBC (Auto) (0-4) /hpf U Hyaline Cast (Auto) (0-5) /lpf U Epithel Cells (Auto) (0-5) /lpf Urine Bacteria (Auto) (Negative) 03/09/19 03/09/19 03/09/19 Range/Units 04:28 04:28 04:28 WBC (4.8-10.8) K/uL RBC (4.2-5.4) M/uL Hgb (12.0-16.0) g/dL Hct (37-47) % MCV (80-100) fL MCH (25-34) pg MCHC (32-36) g/dL RDW Std Deviation (36.4-46.3) fL RDW Coeff of Tamra (11.5-14.5) % Plt Count (130-400) K/uL MPV (7.4-10.4) fL Immature Gran % (Auto) % Neut % (Auto) % Lymph % (Auto) % Stoddard % (Auto) % Eos % (Auto) % Baso % (Auto) % Immature Gran # (Auto) (0.00-0.02) K/uL Neut # (Auto) (1.4-6.5) K/uL Lymph # (Auto) (1.2-3.4) K/uL Stoddard # (Auto) (0.11-0.59) K/uL Eos # (Auto) (0-0.5) K/uL Baso # (Auto) (0-0.2) K/uL PT (9.0-12.0) Seconds INR (0.9-1.1) Sodium (136-145) mmol/L Potassium (3.5-5.1) mmol/L Chloride (98-107) mmol/L Carbon Dioxide (21-32) mmol/L Anion Gap (3-11) BUN (7-18) mg/dl Creatinine (0.6-1.2) mg/dl Est Cr Clr Drug Dosing Est GFR ( Amer) Est GFR (Non-Af Amer) BUN/Creatinine Ratio (10-20) Glucose (70-99) mg/dl POC Glucose (70-99) Estimat Average Glucose 137 mg/dl Hemoglobin A1c 6.4 H (4.5-5.6) % Lactate 1.5 (0.4-2.0) mmol/L Calcium (8.5-10.1) mg/dl Magnesium (1.8-2.4) mg/dl Total Bilirubin (0.2-1) mg/dl AST (15-37) U/L ALT (12-78) U/L Alkaline Phosphatase (45-117) U/L Ammonia 23.0 (11-32) umol/L Total Protein (6.4-8.2) gm/dl Albumin (3.4-5.0) gm/dl Globulin (2.5-4.0) gm/dl Albumin/Globulin Ratio (0.9-2) TSH (0.300-4.500) uIu/ml Urine Color Urine Appearance (Clear) Urine pH (4.5-7.5) Ur Specific Hartshorn (1.000-1.030) Urine Protein (Negative) Urine Glucose (UA) (Negative) Urine Ketones (Negative) Urine Blood (Negative) Urine Nitrite (Negative) Urine Bilirubin (Negative) Urine Urobilinogen (Negative) Ur Leukocyte Esterase (Negative) Urine WBC (Auto) (0-5) /hpf Urine RBC (Auto) (0-4) /hpf U Hyaline Cast (Auto) (0-5) /lpf U Epithel Cells (Auto) (0-5) /lpf Urine Bacteria (Auto) (Negative) 03/09/19 03/09/19 03/09/19 Range/Units 04:28 04:03 00:27 WBC (4.8-10.8) K/uL RBC (4.2-5.4) M/uL Hgb (12.0-16.0) g/dL Hct (37-47) % MCV (80-100) fL MCH (25-34) pg MCHC (32-36) g/dL RDW Std Deviation (36.4-46.3) fL RDW Coeff of Tamra (11.5-14.5) % Plt Count (130-400) K/uL MPV (7.4-10.4) fL Immature Gran % (Auto) % Neut % (Auto) % Lymph % (Auto) % Stoddard % (Auto) % Eos % (Auto) % Baso % (Auto) % Immature Gran # (Auto) (0.00-0.02) K/uL Neut # (Auto) (1.4-6.5) K/uL Lymph # (Auto) (1.2-3.4) K/uL Stoddard # (Auto) (0.11-0.59) K/uL Eos # (Auto) (0-0.5) K/uL Baso # (Auto) (0-0.2) K/uL PT (9.0-12.0) Seconds INR (0.9-1.1) Sodium 138 137 (136-145) mmol/L Potassium 5.0 5.1 (3.5-5.1) mmol/L Chloride 97 L 96 L (98-107) mmol/L Carbon Dioxide 36 H 35 H (21-32) mmol/L Anion Gap 5.0 6.0 (3-11) BUN 40 H 39 H (7-18) mg/dl Creatinine 1.95 H 1.93 H (0.6-1.2) mg/dl Est Cr Clr Drug Dosing 52.7 Not Reportable Est GFR ( Amer) 31.0 31.4 Est GFR (Non-Af Amer) 26.7 27.1 BUN/Creatinine Ratio 20.7 H 20.1 H (10-20) Glucose 125 H 119 H (70-99) mg/dl POC Glucose 136 H (70-99) Estimat Average Glucose mg/dl Hemoglobin A1c (4.5-5.6) % Lactate (0.4-2.0) mmol/L Calcium 8.6 8.6 (8.5-10.1) mg/dl Magnesium 1.8 (1.8-2.4) mg/dl Total Bilirubin 0.7 (0.2-1) mg/dl AST 87 H (15-37) U/L ALT 73 (12-78) U/L Alkaline Phosphatase 75 (45-117) U/L Ammonia (11-32) umol/L Total Protein 6.6 (6.4-8.2) gm/dl Albumin 2.7 L (3.4-5.0) gm/dl Globulin 3.9 (2.5-4.0) gm/dl Albumin/Globulin Ratio 0.7 L (0.9-2) TSH 2.110 (0.300-4.500) uIu/ml Urine Color Urine Appearance (Clear) Urine pH (4.5-7.5) Ur Specific Hartshorn (1.000-1.030) Urine Protein (Negative) Urine Glucose (UA) (Negative) Urine Ketones (Negative) Urine Blood (Negative) Urine Nitrite (Negative) Urine Bilirubin (Negative) Urine Urobilinogen (Negative) Ur Leukocyte Esterase (Negative) Urine WBC (Auto) (0-5) /hpf Urine RBC (Auto) (0-4) /hpf U Hyaline Cast (Auto) (0-5) /lpf U Epithel Cells (Auto) (0-5) /lpf Urine Bacteria (Auto) (Negative) 03/09/19 03/09/19 03/09/19 Range/Units 00:27 00:24 00:10 WBC 14.45 H (4.8-10.8) K/uL RBC 3.29 L (4.2-5.4) M/uL Hgb 8.6 L (12.0-16.0) g/dL Hct 28.7 L (37-47) % MCV 87.2 (80-100) fL MCH 26.1 (25-34) pg MCHC 30.0 L (32-36) g/dL RDW Std Deviation 54.5 H (36.4-46.3) fL RDW Coeff of Tamra 17.1 H (11.5-14.5) % Plt Count 288 (130-400) K/uL MPV 9.5 (7.4-10.4) fL Immature Gran % (Auto) 1.0 % Neut % (Auto) 88.2 % Lymph % (Auto) 5.0 % Stoddard % (Auto) 5.7 % Eos % (Auto) 0.0 % Baso % (Auto) 0.1 % Immature Gran # (Auto) 0.15 H (0.00-0.02) K/uL Neut # (Auto) 12.74 H (1.4-6.5) K/uL Lymph # (Auto) 0.72 L (1.2-3.4) K/uL Stoddard # (Auto) 0.82 H (0.11-0.59) K/uL Eos # (Auto) 0.00 (0-0.5) K/uL Baso # (Auto) 0.02 (0-0.2) K/uL PT (9.0-12.0) Seconds INR (0.9-1.1) Sodium (136-145) mmol/L Potassium (3.5-5.1) mmol/L Chloride (98-107) mmol/L Carbon Dioxide (21-32) mmol/L Anion Gap (3-11) BUN (7-18) mg/dl Creatinine (0.6-1.2) mg/dl Est Cr Clr Drug Dosing Est GFR ( Amer) Est GFR (Non-Af Amer) BUN/Creatinine Ratio (10-20) Glucose (70-99) mg/dl POC Glucose (70-99) Estimat Average Glucose mg/dl Hemoglobin A1c (4.5-5.6) % Lactate 2.5 H* (0.4-2.0) mmol/L Calcium (8.5-10.1) mg/dl Magnesium (1.8-2.4) mg/dl Total Bilirubin (0.2-1) mg/dl AST (15-37) U/L ALT (12-78) U/L Alkaline Phosphatase (45-117) U/L Ammonia (11-32) umol/L Total Protein (6.4-8.2) gm/dl Albumin (3.4-5.0) gm/dl Globulin (2.5-4.0) gm/dl Albumin/Globulin Ratio (0.9-2) TSH (0.300-4.500) uIu/ml Urine Color Dark Yellow Urine Appearance Turbid A (Clear) Urine pH 5.0 (4.5-7.5) Ur Specific Hartshorn 1.024 (1.000-1.030) Urine Protein 2+ H (Negative) Urine Glucose (UA) Negative (Negative) Urine Ketones Negative (Negative) Urine Blood 3+ H (Negative) Urine Nitrite Positive A (Negative) Urine Bilirubin Negative (Negative) Urine Urobilinogen Negative (Negative) Ur Leukocyte Esterase 2+ H (Negative) Urine WBC (Auto) >30 H (0-5) /hpf Urine RBC (Auto) 0-4 (0-4) /hpf U Hyaline Cast (Auto) 0 (0-5) /lpf U Epithel Cells (Auto) >30 H (0-5) /lpf Urine Bacteria (Auto) 4+ H (Negative) Medications Administered Current Inpatient Medications Albuterol (Duoneb) 3 ml NEB Q4R PRN PRN Reason: Shortness Of Breath Or Wheezing Stop: 04/08/19 04:04 Atorvastatin Calcium (Lipitor) 10 mg PO HS RUSS Stop: 04/08/19 20:59 Betamethasone Dipropion Augmented (Diprolene 0.5%) 1 gm EXT BID RUSS Stop: 04/08/19 08:59 Last Admin: 03/09/19 09:08 Dose: 1 gm Documented by: Carvedilol (Coreg) 3.125 mg PO BID RUSS Stop: 04/08/19 08:59 Last Admin: 03/09/19 09:07 Dose: Not Given Documented by: Dextrose (Dextrose 50%) 25 - 50 ml IV UD PRN; Protocol PRN Reason: Hypoglycemia Protocol Stop: 04/08/19 05:44 Diclofenac Sodium (Voltaren 1% Top) 2 appln EXT QID PRN PRN Reason: affected joint pain area Stop: 04/08/19 04:04 Last Admin: 03/09/19 09:09 Dose: 2 appln Documented by: Diphenhydramine HCl (Benadryl Capsule) 25 mg PO Q6H PRN PRN Reason: itching Stop: 04/08/19 04:04 Docusate Sodium (Colace) 100 mg PO BID PRN PRN Reason: Constipation Stop: 04/08/19 04:04 Ferrous Sulfate (Feosol) 325 mg PO DAILY@1200 RUSS Stop: 04/08/19 11:59 Last Admin: 03/09/19 12:19 Dose: 325 mg Documented by: Furosemide (Lasix) 40 mg PO BID17 [facility] Stop: 04/08/19 08:59 Last Admin: 03/09/19 09:08 Dose: 40 mg Documented by: Gabapentin (Neurontin) 300 mg PO BID [facility] Stop: 04/08/19 08:59 Last Admin: 03/09/19 09:06 Dose: 300 mg Documented by: Glucagon (Glucagen) 1 mg SQ UD PRN; Protocol PRN Reason: Hypoglycemia Protocol Stop: 04/08/19 05:44 Glucose (Glucose 40%) 15 - 30 gm PO UD PRN; Protocol PRN Reason: Hypoglycemia Protocol Stop: 04/08/19 05:44 Glucose (Dex4 Glucose) 4 - 8 tabs PO UD PRN; Protocol PRN Reason: Hypoglycemia Protocol Stop: 04/08/19 05:44 Heparin Sodium (Porcine) (Heparin Sodium (Porcine)) 5,000 units SQ Q8 [facility] Stop: 04/08/19 07:29 Last Admin: 03/09/19 13:00 Dose: 5,000 units Documented by: Lactated Ringer's (Lr) 1,000 mls @ 80 mls/hr IV .[id number] [facility] Stop: 04/08/19 04:04 Last Admin: 03/09/19 16:00 Dose: 80 mls/hr Documented by: Piperacillin Sod/Tazobactam (Sod 4.5 gm/ Dextrose) 120 mls @ 28.75 mls/hr IV Q8 RUSS; Protocol Stop: 03/18/19 18:11 Last Admin: 03/09/19 12:59 Dose: 28.8 mls/hr Documented by: Insulin Human Regular 90 units (/ Syringe) 0.18 mls @ 0 mls/sec SC BIDM [facility] Stop: 04/08/19 07:59 Last Admin: 03/09/19 09:03 Dose: 90 mls/sec Documented by: Insulin Aspart (Novolog Flexpen) 0 units SC ACHS [facility]; Protocol Stop: 04/08/19 07:29 Last Admin: 03/09/19 12:18 Dose: 7 units Documented by: Lactulose (Chronulac) 20 gm PO BID [facility] Stop: 04/08/19 08:59 Last Admin: 03/09/19 09:08 Dose: 20 gm Documented by: Levothyroxine Sodium (Synthroid) 25 mcg PO DAILYBB [facility] Stop: 04/08/19 06:29 Last Admin: 03/09/19 06:23 Dose: 25 mcg Documented by: Magnesium Oxide (Mag-Ox) 400 mg PO DAILY@1200 [facility] Stop: 04/08/19 11:59 Last Admin: 03/09/19 12:19 Dose: 400 mg Documented by: Miscellaneous (Order Awaiting Action) 1 ea N/A QS [facility] Stop: 04/08/19 07:59 Last Admin: 03/09/19 12:20 Dose: Not Given Documented by: Miscellaneous (Carbohydrates For Hypoglycemia) 15 - 30 gm PO UD PRN PRN Reason: Hypoglycemia Treatment Stop: 04/08/19 05:44 Miscellaneous Information (Consult Glycemic Management Pharmacy) 1 ea N/A UD PRN PRN Reason: Consult Stop: 04/08/19 04:34 Miscellaneous Information (Consult) 1 ea N/A UD PRN PRN Reason: Consult Stop: 04/08/19 04:04 Nystatin (Mycostatin) 1 appln EXT PM [facility] Stop: 04/08/19 20:59 Ondansetron HCl (Zofran Tab) 4 mg PO TID PRN PRN Reason: Nausea Stop: 04/08/19 04:04 Ondansetron HCl (Zofran) 4 mg IV Q6H PRN PRN Reason: Nausea Stop: 04/08/19 04:04 Oxycodone HCl (Roxicodone Immediate Rel) 5 mg PO Q6H PRN PRN Reason: Pain Stop: 03/23/19 12:14 Last Admin: 03/09/19 12:58 Dose: 5 mg Documented by: Pantoprazole Sodium (Protonix) 40 mg PO QAM [facility] Stop: 04/08/19 08:59 Last Admin: 03/09/19 09:06 Dose: 40 mg Documented by: Fluticasone/Salmeterol (Advair Diskus 250/50) 1 puffs INH BID [facility] Stop: 04/08/19 08:59 Last Admin: 03/09/19 09:08 Dose: 1 puffs Documented by: Tiotropium [place] (Spiriva) 1 puffs INH QAM [facility] Stop: 04/08/19 08:59 Last Admin: 03/09/19 09:07 Dose: 1 puffs Documented by: Vitamin D (Vitamin D3) 5,000 units PO SuWeFr@0900 [facility] Stop: 04/08/19 08:59 Last Admin: 03/09/19 09:06 Dose: 5,000 units Documented by: PG Care Time/CCT Total # of Minutes Spent Total Time Spent with Patient: Total time spent is greater than 50% in coordination of care (as documented) at patient's floor/unit and/or counseling patient: Resident Activity Tracking Resident Involvement: Resident Care Provided Care Provided: Adult Hospital Medicine (1) UTI (urinary tract infection) Hematuria presence: with hematuria Urinary tract infection type: site unspecified Qualified Code(s): N39.0 - Urinary tract infection, site not specified; R31.9 - Hematuria, unspecified
[2019-03-09] MEDS: ONDANSETRON INJ 2 MG/ML 2 ML VIAL IV PRN (16:22)
[2019-03-09] MEDS: OXYCODONE HCL 10 MG TABCR (OXYCONTIN) PO PRN (17:31)
[2019-03-09] MEDS: ATORVASTATIN 10 MG TAB PO SCH (21:05)
[2019-03-09] MEDS: NYSTATIN POWDER 15GM BTL EXT SCH (21:05)
[2019-03-10] MEDS: LACTATED RINGER'S 1,000 ML IV SCH ×2 (03:50→15:39)
[2019-03-10] MEDS: ONDANSETRON INJ 2 MG/ML 2 ML VIAL IV PRN ×2 (03:50→09:25)
[2019-03-10] MEDS: PIPERACILLIN/TAZOBACTAM 4.5 GM in DEXTROSE 5% 100 ML IV SCH ×3 (05:05→22:09)
[2019-03-10] MEDS: LEVOTHYROXINE SODIUM 25 MCG TABLET PO SCH (05:07)
[2019-03-10] MEDS: OXYCODONE HCL 10 MG TABCR (OXYCONTIN) PO PRN ×2 (05:07→17:20)
[2019-03-10] MEDS: HEPARIN SOD 5,000 UNIT/0.5 ML VIAL SQ SCH ×3 (05:07→22:04)
[2019-03-10 06:42] LABS: Basophils # (auto) 0.05 K/uL (0-0.2); Basophils % (auto) 0.3 %; Eosinophils # (auto) 0.17 K/uL (0-0.5); Eosinophils % (auto) 1.2 %; Hematocrit (blood only) 28.3 % (37-47); Hemoglobin 8.5 g/dL (12.0-16.0); Immature Granulocytes # (auto) 0.12 K/uL (0.00-0.02); Immature Granulocytes % (auto) 0.8 %; Lymphocytes % (auto) 6.9 %; Mean Corpuscular Hemoglobin 25.9 pg (25-34); Mean Corpuscular Volume 86.3 fL (80-100); Mean Platelet Volume 9.4 fL (7.4-10.4); Monocytes # (auto) 0.79 K/uL (0.11-0.59); Monocytes % (auto) 5.4 %; Neutrophils # (auto) 12.41 K/uL (1.4-6.5); Neutrophils % (auto) 85.4 %; Platelet Count 296 K/uL (130-400); RDW Coefficient of Variation 16.9 % (11.5-14.5); RDW Standard Deviation 53.3 fL (36.4-46.3); Red Blood Count 3.28 M/uL (4.2-5.4); White Blood Count 14.54 K/uL (4.8-10.8)
[2019-03-10 07:17] LABS: Albumin Level 2.7 gm/dl (3.4-5.0); BUN Creatinine Ratio 25.1 (10-20); Calcium 9.1 mg/dl (8.5-10.1); Creatinine Clr Calc Pharmacy 72.8 ml/min; Est GFR (African American) 45.4; Est GFR (Non-African American) 39.2; Potassium 4.1 mmol/L (3.5-5.1)
[2019-03-10 07:19] LABS: Albumin Globulin Ratio 0.7 (0.9-2); Bilirubin,Total 0.5 mg/dl (0.2-1); Globulin 3.8 gm/dl (2.5-4.0); Total Protein 6.5 gm/dl (6.4-8.2)
[2019-03-10] MEDS: PANTOprazole 40 MG TAB PO SCH (08:46)
[2019-03-10] MEDS: CARVEDILOL 3.125 MG TAB PO SCH ×2 (08:47→20:42)
[2019-03-10] MEDS: FUROSEMIDE 40 MG TAB PO SCH ×2 (08:47→17:13)
[2019-03-10] MEDS: LACTULOSE SYRUP 20 GM/30 ML UDC PO SCH ×2 (08:48→20:42)
[2019-03-10] MEDS: FLUTICASONE/SALMETEROL 250/50 (ADVAIR) 14 PUFF/1 INHALER INH SCH ×2 (08:49→20:41)
[2019-03-10] MEDS: TIOTROPIUM BROMIDE 5 PUFF/90 MCG INH INH SCH (08:51)
[2019-03-10] MEDS: INSULIN ASPART 100 UNITS/ML 3 ML PEN SC SCH ×4 (08:51→22:03)
[2019-03-10] MEDS: BETAMETHASONE DIP AUG (DIPROLENE) 0.05% CR 15 GM TUBE EXT SCH ×2 (08:51→20:48)
[2019-03-10] MEDS: GABAPENTIN 300 MG CAP PO SCH ×3 (09:11→20:48)
[2019-03-10] MEDS: HUMULIN R U SC SCH (09:13)
[2019-03-10] MEDS: DICLOFENAC SOD 1% GEL 100 GM TUBE EXT PRN (10:18)
--- NOTE | 2019-03-10 11:01 | Pharmacy Report ---
Pharmacy Glycemic Short Note 2 - Date of Service March 10, 2019 - Glycemic Short BSG Results (Last 24 hours): 03/09/19 03/09/19 03/09/19 11:35 16:45 20:46 Glucose POC Glucose 172 H 174 H 140 H 03/10/19 03/10/19 06:06 07:31 Glucose 93 POC Glucose 115 H ASSESSMENT: * BSGs over the previous 24hrs are reasonably controlled: [phone]/dL. Diet continues. PLAN FOR INPATIENT GLYCEMIC CONTROL: * Basal insulin * u-500 was decreased this AM from 90u --> 75u. FBS significantly lower than yesterday's FBS. Will trend BSGs throughout the day to delineate this evenings U-500 dose. * Bolus insulin * NovoLog per scale ACHS or Q6hrs while NPO * Goal Range: Low 110 mg/dL - High 140 mg/dL * Correction Factor: 10 mg/dL/unit * Nutritional / Prandial insulin per carb ratio of 1 unit per -- grams CHO consumed PLAN FOR DISCHARGE: * Continue home regimen. A1C within goal.
[2019-03-10] MEDS: MAGNESIUM OXIDE 400 MG TAB PO SCH (12:08)
[2019-03-10] MEDS: FERROUS SULFATE 325 MG TAB PO SCH (12:08)
--- NOTE | 2019-03-10 14:07 | Family Medicine Progress Note ---
Date of Service March 10, 2019 Assessment & Plan (1) Sepsis: 64-year-old female was admitted on 09 March 2019 for fever and altered mental status. Please also see discharge summary on 20Nov2018 with similar symptoms ultimately due to severe sepsis caused by Pseudomonas UTI. Sepsis, altered mental status, acute kidney injury, urinary tract infection: -Urine culture in November 2018 grew pansensitive Pseudomonas. -UA is highly suggestive as source. Urine cx growing gram negative bacteria -Continue IV fluids and Zosyn pending culture results. Recheck lactate and BMP. Continue home lactulose. Anemia, iron deficiency: -Admit hemoglobin 8.6, MCV 87 -Recent comparisons in the 10s. Is on iron at home. -Will continue to monitor Hypertension, hyperlipidemia: -Continue home atorvastatin, Coreg, Lasix. -Hold home lisinopril due to HOLLY. COPD, ZACKARY: -at home is on 3 L NC oxygen continuously. Previously used BiPAP nightly for ZACKARY but currently only CPAP -continue home Spiriva. Duo nebs as needed. Type 2 diabetes: -On insulin pump at home as well as metformin. -Will hold her metformin here. Pharmacy diabetic consult initially due to sepsis. Check latest HbA1c. Ambulatory dysfunction, chronic indwelling Garcia catheter: -Due to ambulatory dysfunction from chronic lumbar spine issues. -Morbid obesity: Admit weight 190.1 kg. Bedbound for over past year. -increased Gabapentin to home dose 300 TID Psoriasis: -Continue local betamethasone. Fatty liver disease: -Seen by gastroenterology in November, recommended routine monitoring. Admit AST 87. -Continue home lactulose. Hypothyroidism: -Continue home levothyroxine. Code status: Full code. DVT prophy: Heparin TID. Disbo: transfer to kimmy/surg (2) Altered mental status: (3) HOLLY (acute kidney injury): (4) UTI (urinary tract infection): (5) Anemia: (6) Iron deficiency: (7) Hypertension: (8) HLD (hyperlipidemia): (9) COPD (chronic obstructive pulmonary disease): (10) ZACKARY (obstructive sleep apnea): (11) Obesity hypoventilation syndrome: (12) Chronic respiratory failure with hypoxia and hypercapnia: (13) DM II (diabetes mellitus, type II), controlled: (14) Ambulatory dysfunction: (15) Chronic indwelling Garcia catheter: (16) Morbid obesity: (17) Psoriasis: (18) NAFLD (nonalcoholic fatty liver disease): (19) Chronic pain syndrome: (20) Knee osteoarthritis: (21) Hypothyroid: Supervising Physician Co-Signing Physician Notes I personally examined the patient and verified all song points of history and exam, discussed case, and agree with decision making with Dr Mancilla. Continues to feel better. Very pleased with Dr. Mancilla's change in her pain medicines. Awaiting final culture results. Vitals noted, in general she is awake and alert pleasant no distress. HEENT normocephalic atraumatic mucous members moist. Breathing unlabored no accessory muscle use good effort. Skin shows no rashes no pallor or icterus. Urinary tract infection related to chronic indwelling Foleygrowing gram-n egative rods, previously had Pseudomonas. Agree with Enrique pending final results. Definitely improving Chronic painagree that if she needs to be on a narcotic regimen, that a long- acting/short acting regimen seems to be more appropriate than an entirely short acting regimen. Doing better on less total milligrams of narcotics. See yesterday's discussion about overall likely benefiting from a consideration of revamped pain regimen and possibly a prolonged weaning of narcotics, but for now doing better on less total milligrams. DVT prophylaxisheparin subcu Subjective Feels like she has much improved this morning, but maintains concern about why she continues to get these infections in her urine. Had more lateral leg pain overnight, that she attributes to her fibromyalgia; had great relief of pain with switch to extended release twice a day. No maintained urinary symptoms. Review of Systems Constitutional: + weakness; no fever, no chills and no sweats Respiratory: no cough, no dyspnea and no snoring Cardiovascular: no chest pain, no palpitations and no lightheadedness Gastrointestinal: + nausea; no abdominal pain, no vomiting and no change in bowel habits Genitourinary: + urinary incontinence; no dysuria and no flank pain Musculoskeletal: + back pain, + radicular pain and + myalgia Physical Exam Constitutional: well developed, well nourished, + morbidly obese and cooperative Eyes: PERRL and EOM intact bilaterally Respiratory: normal respiratory effort Auscultation: lungs clear to auscultation bilaterally; no crackles, no rales and no wheezes Cardiovascular: Rate/Rhythm: regular rate and regular rhythm Heart Sounds: normal S1 and normal S2; no click, no murmur and no cardiac rub Results & Data Vital Signs (Past 12 Hours) Vital Signs Temp Pulse Resp BP Pulse Ox Pulse Ox 03/10/19 11:46 36.7 C 69 20 115/58 L 98 03/10/19 07:33 36.8 C 69 18 114/58 L 100 03/10/19 05:00 99 03/10/19 03:47 36.8 C 69 16 144/62 H 98 Laboratory Results 03/10/19 03/10/19 03/10/19 Range/Units 11:43 07:31 06:06 WBC (4.8-10.8) K/uL RBC (4.2-5.4) M/uL Hgb (12.0-16.0) g/dL Hct (37-47) % MCV (80-100) fL MCH (25-34) pg MCHC (32-36) g/dL RDW Std Deviation (36.4-46.3) fL RDW Coeff of Tamra (11.5-14.5) % Plt Count (130-400) K/uL MPV (7.4-10.4) fL Immature Gran % (Auto) % Neut % (Auto) % Lymph % (Auto) % [place] % (Auto) % Eos % (Auto) % Baso % (Auto) % Immature Gran # (Auto) (0.00-0.02) K/uL Neut # (Auto) (1.4-6.5) K/uL Lymph # (Auto) (1.2-3.4) K/uL [place] # (Auto) (0.11-0.59) K/uL Eos # (Auto) (0-0.5) K/uL Baso # (Auto) (0-0.2) K/uL Sodium 136 (136-145) mmol/L Potassium 4.1 D (3.5-5.1) mmol/L Chloride 95 L (98-107) mmol/L Carbon Dioxide 37 H (21-32) mmol/L Anion Gap 4.0 (3-11) BUN 36 H (7-18) mg/dl Creatinine 1.42 H D (0.6-1.2) mg/dl Est Cr Clr Drug Dosing 72.8 ml/min Est GFR ( Amer) 45.4 Est GFR (Non-Af Amer) 39.2 BUN/Creatinine Ratio 25.1 H (10-20) Glucose 93 (70-99) mg/dl POC Glucose 150 H 115 H (70-99) Calcium 9.1 (8.5-10.1) mg/dl Total Bilirubin 0.5 (0.2-1) mg/dl AST 63 H (15-37) U/L ALT 110 H (12-78) U/L Alkaline Phosphatase 66 (45-117) U/L Total Protein 6.5 (6.4-8.2) gm/dl Albumin 2.7 L (3.4-5.0) gm/dl Globulin 3.8 (2.5-4.0) gm/dl Albumin/Globulin Ratio 0.7 L (0.9-2) 03/10/19 03/09/19 03/09/19 Range/Units 06:06 20:46 16:45 WBC 14.54 H (4.8-10.8) K/uL RBC 3.28 L (4.2-5.4) M/uL Hgb 8.5 L (12.0-16.0) g/dL Hct 28.3 L (37-47) % MCV 86.3 (80-100) fL MCH 25.9 (25-34) pg MCHC 30.0 L (32-36) g/dL RDW Std Deviation 53.3 H (36.4-46.3) fL RDW Coeff of Tamra 16.9 H (11.5-14.5) % Plt Count 296 (130-400) K/uL MPV 9.4 (7.4-10.4) fL Immature Gran % (Auto) 0.8 % Neut % (Auto) 85.4 % Lymph % (Auto) 6.9 % [place] % (Auto) 5.4 % Eos % (Auto) 1.2 % Baso % (Auto) 0.3 % Immature Gran # (Auto) 0.12 H (0.00-0.02) K/uL Neut # (Auto) 12.41 H (1.4-6.5) K/uL Lymph # (Auto) 1.00 L (1.2-3.4) K/uL [place] # (Auto) 0.79 H (0.11-0.59) K/uL Eos # (Auto) 0.17 (0-0.5) K/uL Baso # (Auto) 0.05 (0-0.2) K/uL Sodium (136-145) mmol/L Potassium (3.5-5.1) mmol/L Chloride (98-107) mmol/L Carbon Dioxide (21-32) mmol/L Anion Gap (3-11) BUN (7-18) mg/dl Creatinine (0.6-1.2) mg/dl Est Cr Clr Drug Dosing ml/min Est GFR ( Amer) Est GFR (Non-Af Amer) BUN/Creatinine Ratio (10-20) Glucose (70-99) mg/dl POC Glucose 140 H 174 H (70-99) Calcium (8.5-10.1) mg/dl Total Bilirubin (0.2-1) mg/dl AST (15-37) U/L ALT (12-78) U/L Alkaline Phosphatase (45-117) U/L Total Protein (6.4-8.2) gm/dl Albumin (3.4-5.0) gm/dl Globulin (2.5-4.0) gm/dl Albumin/Globulin Ratio (0.9-2) Medications Administered Current Inpatient Medications Albuterol (Duoneb) 3 ml NEB Q4R PRN PRN Reason: Shortness Of Breath Or Wheezing Stop: 04/08/19 04:04 Atorvastatin Calcium (Lipitor) 10 mg PO HS RUSS Stop: 04/08/19 20:59 Last Admin: 03/09/19 21:05 Dose: 10 mg Documented by: Betamethasone Dipropion Augmented (Diprolene 0.5%) 1 gm EXT BID RUSS Stop: 04/08/19 08:59 Last Admin: 03/10/19 08:51 Dose: 1 gm Documented by: Carvedilol (Coreg) 3.125 mg PO BID RUSS Stop: 04/08/19 08:59 Last Admin: 03/10/19 08:47 Dose: 3.125 mg Documented by: Dextrose (Dextrose 50%) 25 - 50 ml IV UD PRN; Protocol PRN Reason: Hypoglycemia Protocol Stop: 04/08/19 05:44 Diclofenac Sodium (Voltaren 1% Top) 2 appln EXT QID PRN PRN Reason: affected joint pain area Stop: 04/08/19 04:04 Last Admin: 03/10/19 10:18 Dose: 2 appln Documented by: Diphenhydramine HCl (Benadryl Capsule) 25 mg PO Q6H PRN PRN Reason: itching Stop: 04/08/19 04:04 Docusate Sodium (Colace) 100 mg PO BID PRN PRN Reason: Constipation Stop: 04/08/19 04:04 Ferrous Sulfate (Feosol) 325 mg PO DAILY@1200 RUSS Stop: 04/08/19 11:59 Last Admin: 03/10/19 12:08 Dose: 325 mg Documented by: Furosemide (Lasix) 40 mg PO BID17 [facility] Stop: 04/08/19 08:59 Last Admin: 03/10/19 08:47 Dose: 40 mg Documented by: Gabapentin (Neurontin) 300 mg PO BID RUSS Stop: 04/08/19 08:59 Last Admin: 03/10/19 09:11 Dose: 300 mg Documented by: Glucagon (Glucagen) 1 mg SQ UD PRN; Protocol PRN Reason: Hypoglycemia Protocol Stop: 04/08/19 05:44 Glucose (Glucose 40%) 15 - 30 gm PO UD PRN; Protocol PRN Reason: Hypoglycemia Protocol Stop: 04/08/19 05:44 Glucose (Dex4 Glucose) 4 - 8 tabs PO UD PRN; Protocol PRN Reason: Hypoglycemia Protocol Stop: 04/08/19 05:44 Heparin Sodium (Porcine) (Heparin Sodium (Porcine)) 5,000 units SQ Q8 [facility] Stop: 04/08/19 07:29 Last Admin: 03/10/19 13:57 Dose: 5,000 units Documented by: Lactated Ringer's (Lr) 1,000 mls @ 80 mls/hr IV .[id number] [facility] Stop: 04/08/19 04:04 Last Admin: 03/10/19 03:50 Dose: 80 mls/hr Documented by: Piperacillin Sod/Tazobactam (Sod 4.5 gm/ Dextrose) 120 mls @ 28.75 mls/hr IV Q8 RUSS; Protocol Stop: 03/18/19 18:11 Last Admin: 03/10/19 13:54 Dose: 28.8 mls/hr Documented by: Insulin Human Regular 75 units (/ Syringe) 0.15 mls @ 0 mls/sec SC BIDM [facility] Stop: 04/08/19 07:59 Insulin Aspart (Novolog Flexpen) 0 units SC ACHS [facility]; Protocol Stop: 04/08/19 07:29 Last Admin: 03/10/19 12:11 Dose: 5 units Documented by: Lactulose (Chronulac) 20 gm PO BID [facility] Stop: 04/08/19 08:59 Last Admin: 03/10/19 08:48 Dose: 20 gm Documented by: Levothyroxine Sodium (Synthroid) 25 mcg PO DAILYBB [facility] Stop: 04/08/19 06:29 Last Admin: 03/10/19 05:07 Dose: 25 mcg Documented by: Magnesium Oxide (Mag-Ox) 400 mg PO DAILY@1200 [facility] Stop: 04/08/19 11:59 Last Admin: 03/10/19 12:08 Dose: 400 mg Documented by: Miscellaneous (Order Awaiting Action) 1 ea N/A QS [facility] Stop: 04/08/19 07:59 Last Admin: 03/10/19 08:49 Dose: Not Given Documented by: Miscellaneous (Carbohydrates For Hypoglycemia) 15 - 30 gm PO UD PRN PRN Reason: Hypoglycemia Treatment Stop: 04/08/19 05:44 Miscellaneous Information (Consult Glycemic Management Pharmacy) 1 ea N/A UD PRN PRN Reason: Consult Stop: 04/08/19 04:34 Miscellaneous Information (Consult) 1 ea N/A UD PRN PRN Reason: Consult Stop: 04/08/19 04:04 Nystatin (Mycostatin) 1 appln EXT PM [facility] Stop: 04/08/19 20:59 Last Admin: 03/09/19 21:05 Dose: 1 appln Documented by: Ondansetron HCl (Zofran Tab) 4 mg PO TID PRN PRN Reason: Nausea Stop: 04/08/19 04:04 Ondansetron HCl (Zofran) 4 mg IV Q6H PRN PRN Reason: Nausea Stop: 04/08/19 04:04 Last Admin: 03/10/19 09:25 Dose: 4 mg Documented by: Oxycodone HCl (Oxycontin) 10 mg PO BID PRN PRN Reason: pain Stop: 03/23/19 20:59 Last Admin: 03/10/19 05:07 Dose: 10 mg Documented by: Oxycodone HCl (Roxicodone Immediate Rel) 5 mg PO Q6H PRN PRN Reason: Breakthrough Pain Stop: 03/23/19 12:14 Pantoprazole Sodium (Protonix) 40 mg PO QAM [facility] Stop: 04/08/19 08:59 Last Admin: 03/10/19 08:46 Dose: 40 mg Documented by: Fluticasone/Salmeterol (Advair Diskus 250/50) 1 puffs INH BID [facility] Stop: 04/08/19 08:59 Last Admin: 03/10/19 08:49 Dose: 1 puffs Documented by: Tiotropium [place] (Spiriva) 1 puffs INH QAM [facility] Stop: 04/08/19 08:59 Last Admin: 03/10/19 08:51 Dose: 1 puffs Documented by: Vitamin D (Vitamin D3) 5,000 units PO SuWeFr@0900 [facility] Stop: 04/08/19 08:59 Last Admin: 03/09/19 09:06 Dose: 5,000 units Documented by: PG Care Time/CCT Total # of Minutes Spent Total Time Spent with Patient: Total time spent is greater than 50% in coordination of care (as documented) at patient's floor/unit and/or counseling patient: Resident Activity Tracking Resident Involvement: Resident Care Provided Care Provided: Adult Hospital Medicine (1) UTI (urinary tract infection) Hematuria presence: with hematuria Urinary tract infection type: site unsp ecified Qualified Code(s): N39.0 - Urinary tract infection, site not specified; R31.9 - Hematuria, unspecified
[2019-03-10] MEDS ORDERED: Nursing to Pharmacy Communication ONE (17:05)
[2019-03-10] MEDS: ATORVASTATIN 10 MG TAB PO SCH (20:45)
[2019-03-10] MEDS: NYSTATIN POWDER 15GM BTL EXT SCH (22:04)
[2019-03-11] MEDS: LACTATED RINGER'S 1,000 ML IV SCH (04:49)
[2019-03-11] MEDS: OXYCODONE HCL 10 MG TABCR (OXYCONTIN) PO PRN (05:22)
[2019-03-11] MEDS: HEPARIN SOD 5,000 UNIT/0.5 ML VIAL SQ SCH (05:29)
[2019-03-11] MEDS: PIPERACILLIN/TAZOBACTAM 4.5 GM in DEXTROSE 5% 100 ML IV SCH (05:34)
[2019-03-11] MEDS: LEVOTHYROXINE SODIUM 25 MCG TABLET PO SCH (05:35)
[2019-03-11] MEDS: FLUTICASONE/SALMETEROL 250/50 (ADVAIR) 14 PUFF/1 INHALER INH SCH (08:11)
[2019-03-11] MEDS: TIOTROPIUM BROMIDE 5 PUFF/90 MCG INH INH SCH (08:12)
[2019-03-11] MEDS: LACTULOSE SYRUP 20 GM/30 ML UDC PO SCH (08:12)
[2019-03-11] MEDS: CARVEDILOL 3.125 MG TAB PO SCH (08:13)
[2019-03-11] MEDS: GABAPENTIN 300 MG CAP PO SCH ×2 (08:13→13:14)
[2019-03-11] MEDS: FUROSEMIDE 40 MG TAB PO SCH (08:14)
[2019-03-11] MEDS: CHOLECALCIFEROL 1,000 UNITS TAB PO SCH (08:14)
[2019-03-11] MEDS: PANTOprazole 40 MG TAB PO SCH (08:14)
[2019-03-11] MEDS: BETAMETHASONE DIP AUG (DIPROLENE) 0.05% CR 15 GM TUBE EXT SCH (08:15)
[2019-03-11] MEDS: INSULIN ASPART 100 UNITS/ML 3 ML PEN SC SCH ×2 (09:02→12:16)
[2019-03-11] MEDS: FERROUS SULFATE 325 MG TAB PO SCH (11:15)
[2019-03-11] MEDS: MAGNESIUM OXIDE 400 MG TAB PO SCH (11:15)
[2019-03-11] MEDS ORDERED: CEFDINIR 300 MG CAP PO SCH (12:38)
--- NOTE | 2019-03-11 13:16 | Pharmacy Report ---
Glycemic Control Progress Note - Date of Service March 11, 2019 - Scope Glycemic Pharmacist consulted for glycemic control to write orders per [facility] inpatient glycemic control protocol. - Objective Accuchecks BSG(last 24 hours):: 03/10/19 03/10/19 03/11/19 16:37 21:27 08:12 POC Glucose 141 H 119 H 125 H 03/11/19 12:08 POC Glucose 137 H HbA1c:: Hemoglobin A1c 6.4 % (4.5-5.6) H 03/09/19 04:28 - Recent Pertinent Medications The patient is currently receiving: * Basal insulin: U-500 75 units BIDM * Correctional Insulin: Novolog Correction per scale ACHS Goal Range: Low 110 mg/dL - High 140 mg/dL Correction Factor: 10 mg/dL/unit * Prandial insulin: Per carb ratio of 1 unit per -- grams CHO consumed * Oral Agents: - Outpatient Anti-Diabetic Meds U-500 PUMP (UP TO 350 UNITS/DAY) METFORMIN 850 MG PO BID - Assessment & Plan ASSESSMENT: * See progress note from 03/09/19 for more background info, in short: * Pt receiving SQ basal bolus insulin regimen for hyperglycemia secondary to baseline DM (outpatient regimen on hold),stress/infection (ON CEFDINIR FOR UTI). * Patient is currently receiving an average of 156 units of insulin per day * 150 units of basal insulin * 6 units of prandial/correctional insulin * BSGs ranging 115 - 150 mg/dl over the past 24hrs * Changes needed to insulin regimen: * AM Fasting BSG = 125 mg/dl. This is in goal range for patient based on i npatient targets and co-morbidities. Therefore U-500 insulin will be continued. * Post-prandial BSGs are in range therefore no changes needed to CF/CR. * Total daily dose = ~150 units. PLAN FOR INPATIENT GLYCEMIC CONTROL: * Continuing U-500 75 units SQ BIDM * Continuing correction factor of 10 mg/dl/unit * Continuing goal range of Low 110 mg/dL - High 140 mg/dL RECOMMENDATIONS FOR DISCHARGE: * Patient's HbA1C is well controlled with U-500 pump. May continue as an outpatient as long as she doesn't have any problems with hypoglycemia. * In terms of restarting insulin pump, recommend the following: * if received AM dose of u-500 last, then restart pump around 1400 or 1500 to allow for 2 hours of overlap. * if received PM dose of u-500 last, then restart pump around 6 or 7 the next morning to allow for 2 hours of overlap. * Please note that the plan above was derived based on current level of insulin resistance and hospital stress. These recommendations are appropriate for inpatient admission only. Plan of care upon discharge will need to be reassessed to avoid potential outpatient hypo/hyperglycemia. Thank you.
--- NOTE | 2019-03-11 13:34 | Discharge Summary ---
Date of Service March 11, 2019 Admission HPI Per Admitting Provider 64-year-old female was brought in by EMS due to 's concerns for fever and worsening mental status earlier this morning. Patient's was not present during the H&P, therefore the history comes from the patient and the medical record. Presently, the patient is awake, alert, and very lucidly conversational. She says over the past five or so days she has had some progressive fatigue. Because of this she has had decreased fluid and food intake, so much so that she says her has to wake her up in order to drink fluids. She denies knowing of any particular reason, though does recall that she felt like this during her last UTI. She has remained bedbound for over the past year. She has a chronic indwelling Garcia catheter due to her immobility that gets changed out every two weeks, most recently this past 15Aug. She denies any chest pains, acute shortness of breath, abdominal pain, N/V/D, or focal extremity pains. She does have ongoing chronic bilateral hip and knee pain. She has some level of home health. Her primary caregiver is her who works daily but is also undergoing chemotherapy for a reported abdominal cancer. She says this therapy seems to be going well but does tax him. She relays some concerns about transportation to the hospital and medical appointments as well as being able to pay for her medical care. - Past medical history includes hypertension, hyperlipidemia, COPD, ZACKARY, chronic hypoxic and hypercapnic respiratory failure, type 2 diabetes, ambulatory dysfunction, chronic indwelling Garcia catheter, morbid obesity, metabolic encephalopathy, acute hepatitis, fatty liver, chronic lumbar spine issues, obesity hypoventilation syndrome, psoriasis, chronic pain syndrome from knee osteoarthritis, iron deficiency, folate deficiency, hypothyroidism - Past surgical history includes x2, umbilical hernia repair. - Social history includes having smoked previously. No reported alcohol or substance abuse. Lives at home with her . Admission Exam (Per Admitting) Constitutional well developed, well nourished, + morbidly obese and cooperative Eyes PERRL and EOM intact bilaterally Respiratory normal respiratory effort Auscultation: lungs clear to auscultation bilaterally; no crackles, no rales and no wheezes Cardiovascular Rate/Rhythm: regular rate and regular rhythm Heart Sounds: normal S1 and normal S2; no click, no murmur and no cardiac rub Extremities: + edema (uncertain edema ) Discharge Data Consultations 03/09/19 01:11 ED Decision to Admit Stat 03/09/19 04:05 Consult Case Management - Discharge Planning Routine Hospital Course (1) Sepsis: 64-year-old female was admitted on 09 March 2019 for fever and altered mental status. Please also see discharge summary on 20Nov2018 with similar symptoms ultimately due to severe sepsis caused by Pseudomonas UTI. Sepsis, altered mental status, acute kidney injury, urinary tract infection: -Urine culture in November 2018 grew pansensitive Pseudomonas. -UA is highly suggestive as source. Urine cx growing Klebsiella pneumonia -Continue Cefdinir 300mg BID for 14 days Anemia, iron deficiency: -Admit hemoglobin 8.6, MCV 87 -Recent comparisons in the 10s. Is on iron at home. -continue home replacement Hypertension, hyperlipidemia: -Continue home atorvastatin, Coreg, Lasix, lisinopril COPD, ZACKARY: -continue home Spiriva. Duo nebs as needed. Type 2 diabetes: -On insulin pump at home as well as metformin. -continue hold her metformin here Ambulatory dysfunction, chronic indwelling Garcia catheter: -continue Gabapentin to home dose 300 TID Psoriasis: -Continue local betamethasone. Fatty liver disease: -Continue home lactulose. Hypothyroidism: -Continue home levothyroxine. Code status: Full code (2) Altered mental status: (3) HOLLY (acute kidney injury): (4) UTI (urinary tract infection): (5) Anemia: (6) Iron deficiency: (7) Hypertension: (8) HLD (hyperlipidemia): (9) COPD (chronic obstructive pulmonary disease): (10) ZACKARY (obstructive sleep apnea): (11) Obesity hypoventilation syndrome: (12) Chronic respiratory failure with hypoxia and hypercapnia: (13) DM II (diabetes mellitus, type II), controlled: (14) Ambulatory dysfunction: (15) Chronic indwelling Garcia catheter: (16) Morbid obesity: (17) Psoriasis: (18) NAFLD (nonalcoholic fatty liver disease): (19) Chronic pain syndrome: (20) Knee osteoarthritis: (21) Hypothyroid: Supervising Physician Co-Signing Physician Notes I personally examined the patient and verified all song points of history and exam, discussed case, and agree with decision making with Dr Mancilla. Feeling better. Would very much like to go home. Case management able to arrange this. Input appreciated. Vitals noted, in general she is awake and alert pleasant no distress. HEENT normal cephalic atraumatic mucous membranes moist. Breathing unlabored no accessory muscle use good effort. Skin shows no rashes no pallor or icterus. Multidrug-resistant UTIsensitive to third generation cephalosporins tested. Appears to be appropriate to go home on Ceftin ear. Close outpatient follow-up. Chronic painat home she is on 20 mg of short-acting oxycodone 4 times daily. Here in the hospital Dr. Mancilla changed her over to 10 mg OxyContin twice daily, with 5 mg oxycodone as needed breakthrough. Interestingly with this change, she noted much better pain control and actually did not appear to need the breakthrough medicine at all. We discussed this could be a regimen that she co ntinues at home in place of her current regimen. For a number of factors, we made this is a recommendation, outlined it to the patient, and I personally called the physician who she notes oversees her pain management, but for now did not prescribe the regimen herself. The reasons were that in the current climate, she is on significant amounts of opiates, which certainly would put her under scrutiny. Right now [place], she only has one prescriber, which certainly makes her situation appear much more reliable. We discussed that I would hate to bring her under further scrutiny by then having multiple prescribers writing for large amounts of opiates. Further, he just had 120 20 mg oxycodone filled on February 22. Given the ease of confusion of one medication versus another, and given the significant amount of 20 mg oxycodone she likely still has at home, it would likely be safer to make this transition when she is due for her next refill in early March, rather than risk accidental overdose by having multiple doses of multiple narcotics, both long and short acting, at home. I personally discussed the thought of the revamp pain regimen with the physician she identified as her pain management physician, and he expressed a willingness to transition her regimen. We both agreed that better pain control, with a lower total daily milligram would certainly be to her benefit. Resident Activity Tracking Resident Involvement: Resident Care Provided Care Provided: Adult [facility]
[2019-03-24] MEDS ORDERED: CYANOCOBALAMIN 1000 MCG/ML VIAL IM SCH (09:00)
== END 2019-03-11 13:50 | disposition home health service (06) | DRG 872 ==
LOC: ED 23:16 → 2E 03-09 02:42 → SUATTDRO 03-09 02:42 → 2E 03-09 03:30 → 3W 03-10 18:13

== ENCOUNTER 2019-09-11 11:04 | Inpatient (IN) ==
[~2019-09-11 11:04] MED LIST changes: -ADVIN25/60 INH; +CALCIUM GLUCONATE 10% 1,000 MG in SODIUM CHLORIDE 0.9% 50 ML IV ONE; -ERGO500037 PO; -FERR18TA2 PO; -FRS/40 PO; -METH5TAB2 PO; -NORT10CA2 PO; -OXYC20TA32 PO; -PRLSR20 PO; -SENNTAB23; -SPRIN/30 INH
[2019-09-11] MEDS ORDERED: DiphenhydrAMINE HCL 50 MG/ML VIAL IV STA (11:28)
[2019-09-11] MEDS ORDERED: cefTRIAXone SODIUM 1,000 MG/50 ML BAG IV STA (11:28)
[2019-09-11] MEDS ORDERED: SODIUM CHLORIDE 0.9% 1000ML 1,000 ML IV SCH ×2 (11:30→18:08)
--- NOTE | 2019-09-11 11:32 | Emergency Department Note ---
Entered by Abby Noyola acting as a scribe for History of Present Illness General Chief complaint: Dehydration Stated complaint: cp/sob Time Seen by Provider: 09/11/19 11:17 Source: patient History of Present Illness Onset (ago): day(s) 1 Location: head (urinary retention) Pain Consistency: + other (persistent) Quality: + other (urinary retention) Associated symptoms: + rash and + other (urinary retention); no fever/chills Treatments prior to arrival: none The patient is a 64 year old female presenting to the Emergency Department complaining of persistent urinary retention starting 1 day ago. The patient reports that she has a chronic Garcia catheter and that it hasnt drained urine since yesterday. She states that she has been taking an antibiotic for a previous UTI. She explains that she has a rash on her chest that is itchy. She notes that she itched this rash and that its redness worsened. She adds that she was put on another antibiotic (Keflex) for an ingrown toenail on her right big toe. The patient reports that she took her normal morning medications but no medications for her symptoms [employer]. She states that she feels well apart from her rash and urinary symptoms. She denies fevers and chills. Home Medications Home Medications Medication Instructions Recorded Confirmed Type Spiriva with HandiHaler 1 cap INHALATION QAM 11/15/18 09/11/19 History atorvastatin [Lipitor] 10 mg PO HS 11/15/18 09/11/19 History carvedilol 3.125 mg PO BID 11/15/18 09/11/19 History cholecalciferol (vitamin D3) 5,000 unit PO WE 11/15/18 09/11/19 History [Vitamin D3] cyanocobalamin (vitamin B-12) 1,000 mcg IM Q30D 11/15/18 09/11/19 History docusate sodium 100 mg PO BID 11/15/18 09/11/19 History furosemide [Lasix] 40 mg PO BID 11/15/18 09/11/19 History metformin 850 mg PO TID 11/15/18 09/11/19 History nitrofurantoin macrocrystal 50 mg PO HS 11/15/18 09/11/19 History nystatin 1 applic TOPICAL BID 11/15/18 09/11/19 History ondansetron HCl [Zofran] 4 mg PO TID PRN 11/15/18 09/11/19 History oxycodone 20 mg PO QID 11/15/18 09/11/19 History gabapentin 300 mg PO TID #90 cap 11/19/18 09/11/19 Rx Cystex Plus (methenamine-vinh) 2 tab PO DAILY PRN 03/09/19 09/11/19 History cranberry 450 mg PO DAILY@1200 03/09/19 09/11/19 History ferrous sulfate 325 mg PO DAILY@1200 03/09/19 09/11/19 History fluticasone propion-salmeterol 1 inh INHALATION BID 03/09/19 09/11/19 History [Wixela Inhub] lisinopril 5 mg PO DAILY@1200 03/09/19 09/11/19 History magnesium oxide 400 mg PO DAILY@1200 03/09/19 09/11/19 History omega 9-fmn-cio-fish oil [Fish Oil] 1 cap PO HS 03/09/19 09/11/19 History insulin regular hum U-500 conc 500 See Rx Instructions .ROUTE 04/23/19 09/11/19 Rx unit/mL subcutaneous soln .COMPLEX #20 milliliter cephalexin 500 mg PO TID 09/11/19 09/11/19 History levothyroxine 88 mcg PO QAM 09/11/19 09/11/19 History multivitamin [One Daily 1 tab PO QAM 09/11/19 09/11/19 History Multivitamin] omeprazole 20 mg PO QAM 09/11/19 09/11/19 History zinc 50 mg PO DAILY@1200 09/11/19 09/11/19 History Allergies Allergy/AdvReac Type Severity Reaction Status Date / Time No Known Allergies Allergy Unverified 09/11/19 11:34 Past Med/Surg History Medical History 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 No problems noted. 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 and A total of 10 systems reviewed and were otherwise negative Physical Exam Vital Signs Vital Signs - 24 hr 09/11/19 10:54 09/11/19 11:14 09/11/19 11:23 Temperature 37.0 C Temperature Source Oral Pulse Rate 74 74 73 Pulse Rate [Right Finger] Pulse Rate from SpO2 Sensor 75 73 Respiratory Rate 20 19 23 Respiratory Effort / Characteristics Non-Labored Spontaneous Respiratory Depth Normal Respiratory Pattern Regular Blood Pressure 120/54 L 83/67 L Blood Pressure Mean 76 74 Blood Pressure Position Sitting Pulse Oximetry 100 100 100 Oxygen Delivery Method Room Air Oxygen Flow Rate Sepsis Recent Fever Within 48 Hours No Sepsis New/Unexplained Change in Mental Status No Sepsis Action Taken by Nursing No Action Required 09/11/19 11:26 09/11/19 12:00 09/11/19 13:00 Temperature Temperature Source Pulse Rate 69 77 78 Pulse Rate [Right Finger] Pulse Rate from SpO2 Sensor 70 Respiratory Rate 18 16 17 Respiratory Effort / Characteristics Respiratory Depth Respiratory Pattern Blood Pressure 120/54 L 157/67 H 151/137 H Blood Pressure Mean 71 97 143 Blood Pressure Position Pulse Oximetry 100 Oxygen Delivery Method Oxygen Flow Rate Sepsis Recent Fever Within 48 Hours Sepsis New/Unexplained Change in Mental Status Sepsis Action Taken by Nursing 09/11/19 13:34 Temperature Temperature Source Pulse Rate Pulse Rate [Right Finger] 79 Pulse Rate from SpO2 Sensor Respiratory Rate 20 Respiratory Effort / Characteristics Spontaneous Respiratory Depth Respiratory Pattern Blood Pressure Blood Pressure Mean Blood Pressure Position Pulse Oximetry 100 Oxygen Delivery Method Nasal Cannula Oxygen Flow Rate 4 Sepsis Recent Fever Within 48 Hours Sepsis New/Unexplained Change in Mental Status Sepsis Action Taken by Nursing CONSTITUTIONAL/VITAL SIGNS: Reviewed / noted above. GENERAL: Morbidly obese. Non-toxic in appearance. INTEGUMENTARY: Erythema to right upper and inner posterior thigh. Faint erythema to chest wall with some associated superficial scratching noted to the left upper chest wall. HEAD: Normocephalic. EYES: without scleral icterus or trauma. ENT/OROPHARYNX: clear and moist. LYMPHADENOPATHY/NECK: Is supple without lymphadenopathy or meningismus. RESPIRATORY: Lungs clear and equal. CARDIOVASCULAR: Regular rate and rhythm. GI/ABDOMEN: Indwelling catheter in place with some sediment drainage. Soft and nontender. No organomegaly or pulsatile mass. No rebound or guarding. Normal bowel sounds. EXTREMITIES: Warm and well perfused. BACK: No CVA tenderness. NEUROLOGICAL: Intact without focal deficits. PSYCHIATRIC: normal affect. MUSCULOSKELETAL: Normally developed with good muscle tone. Course Course 1118: Previous medical records were reviewed. The patient was evaluated in room C9. A complete history and physical examination was performed. 1312: I reevaluated the patient at this time. 1331: I discussed the patient's case with Dr. Cook - [facility] [place] hospitalist. He will evaluate the patient for further management. Administered Medications Discontinued Medications Albuterol (Ventolin 0.5% 2.5mg/0.5ml) 10 mg NEB NOW STA Stop: 09/11/19 13:14 Last Admin: 09/11/19 13:32 Dose: 10 mg Documented by: [id number] Diphenhydramine HCl (Benadryl) 50 mg IV NOW STA Stop: 09/11/19 11:29 Last Admin: 09/11/19 11:52 Dose: 50 mg Documented by: [id number] Ceftriaxone Sodium (Rocephin) 1,000 mg in 50 mls @ 100 mls/hr IV NOW STA Stop: 09/11/19 11:57 Last Infusion: 09/11/19 12:30 Dose: 0 mls/hr Documented by: [id number] Admin: 09/11/19 11:56 Dose: 100 mls/hr Documented by: [id number] Sodium Chloride (Nss 1000ml) 1,000 mls @ 999 mls/hr IV .Q1H1M RUSS Stop: 09/11/19 12:30 Last Admin: 09/11/19 11:56 Dose: 999 mls/hr Documented by: [id number] Critical Care Time Critical Care Time: Yes Total Critical Care Time: 38 I have personally spent 38 minutes of critical care time in the direct management of this patient. This includes bedside care, interpretation of diagnostic studies, and testing, discussion with consultants, patient, and family members, and other required patient management activities. This 38 minutes is in excess of all separately billable procedures. Medical Decision Making Differential Diagnosis Differential Diagnosis includes but is not limited to dehydration, stroke, anemia, hypoglycemia, hyponatremia, hypernatremia, urinary tract infection, pneumonia, bronchitis, sepsis, gastroenteritis, additional abdominal pathology, metabolic abnormalities and infections. Medical Records Attestation: I reviewed the patient's medical records. Home Medications Current Medication List: was personally reviewed by me Laboratory Data Attestation: I reviewed the patient's lab results. Result diagrams: 09/11/19 10:48 09/11/19 10:48 Lab Results 09/11/19 09/11/19 Range/Units 10:48 10:48 WBC 14.27 H (4.8-10.8) K/uL RBC 2.81 L (4.2-5.4) M/uL Hgb 7.8 L (12.0-16.0) g/dL Hct 26.0 L (37-47) % MCV 92.5 (80-100) fL MCH 27.8 (25-34) pg MCHC 30.0 L (32-36) g/dL RDW Std Deviation 51.0 H (36.4-46.3) fL RDW Coeff of Tamra 14.9 H (11.5-14.5) % Plt Count 287 (130-400) K/uL MPV 9.6 (7.4-10.4) fL Immature Gran % (Auto) 0.8 % Neut % (Auto) 85.5 % Lymph % (Auto) 5.3 % [place] % (Auto) 5.6 % Eos % (Auto) 2.5 % Baso % (Auto) 0.3 % Immature Gran # (Auto) 0.11 H (0.00-0.02) K/uL Neut # (Auto) 12.20 H (1.4-6.5) K/uL Lymph # (Auto) 0.76 L (1.2-3.4) K/uL [place] # (Auto) 0.80 H (0.11-0.59) K/uL Eos # (Auto) 0.36 (0-0.5) K/uL Baso # (Auto) 0.04 (0-0.2) K/uL RBC Morphology Unremarkable Sodium 131 L (136-145) mmol/L Potassium 7.1 H* (3.5-5.1) mmol/L Chloride 97 L (98-107) mmol/L Carbon Dioxide 27 (21-32) mmol/L Anion Gap 7.0 (3-11) BUN 82 H (7-18) mg/dl Creatinine 4.51 H* (0.6-1.2) mg/dl Est Cr Clr Drug Dosing 22.0 ml/min Est GFR ( Amer) 11.2 Est GFR (Non-Af Amer) 9.7 BUN/Creatinine Ratio 17.8 (10-20) Glucose 82 (70-99) mg/dl Calcium 9.6 (8.5-10.1) mg/dl Total Bilirubin 0.2 (0.2-1) mg/dl AST 5 L (15-37) U/L ALT 16 (12-78) U/L Alkaline Phosphatase 111 (45-117) U/L Total Protein 6.9 (6.4-8.2) gm/dl Albumin 2.6 L (3.4-5.0) gm/dl Globulin 4.3 H (2.5-4.0) gm/dl Albumin/Globulin Ratio 0.6 L (0.9-2) ECG Data Attestation: I personally reviewed and interpreted this ECG as follows: Indication: + weakness Rate (beats per minute): 73 Rhythm: + normal sinus ECG Intervals/blocks: + Normal QT-c ECG ST segments: no ST elevation ECG Findings: no PVCs Blood Pressure Blood Pressure Findings: Elevated blood pressure Blood Pressure Disposition: further management by hospitalist BILLY Steinberg This is a 64-year-old female who presents to the ED with a chief complaint of decreased urine output from her Garcia catheter. She states that she has normal urinating more than she has been recently. The patient is also currently on Keflex she states for an ingrown toenail infection. The patient reports some itching on her chest. She has been scratching that area. It is erythematous. She has no other complaints. Denies any chest pains, shortness breath, abdominal pains or vomiting. Her physical exam reveals that she is morbidly obese. She states that she is bedbound. She is noted to have some erythema to the right inner thigh. She also has some erythema to the left upper inner calf region. She has some light erythema to the upper chest. No hives. No wheezing. No shortness of breath. No abdominal pains. Indwelling Garcia catheter reveals some urine output with some sediment in the tube. Her vital signs are normal. She is afebrile. The patient's Garcia catheter appears to be draining. A twelve-lead EKG shows a normal sinus rhythm at a rate of [address] changes or widening of the QRS. Hemoglobin today is near her baseline around 7.8. Potassium was 7.1. BUN is 82 and creatinine is 4.5. This is significantly elevated compared to her baseline of 1.3. The patient was initially treated with a liter of normal saline IV. She was given IV Rocephin as well as IV Benadryl. The Rocephin is for what appears to be a cellulitis of the right inner thigh and left inner calf. She also was given Benadryl for a rash on her chest that is slightly erythematous thought to be related to a contact dermatitis or reaction. This did not change the rash in the chest. The patient was given a DuoNeb treatment, IV bicarb drip, IV dextrose and IV insulin as well as IV calcium gluconate and p.o. Kayexalate for hyperkalemia. She was also given a second liter of normal saline IV. Her Garcia appears to be putting out more clear urine. The patient will be seen by the hospitalist for further evaluation and care. Impression & Plan Acute renal failure, Hyperkalemia, Cellulitis Discharge Plan Visit Data Chief Complaint: Dehydration Stated Complaint: cp/sob ED Provider: Aaron Gordillo Discharge Problem: Acute renal failure, Hyperkalemia, Cellulitis Patient Disposition: Being Evaluated by Hospitalist Forms Stand Alone Forms: [facility] Prescriptions Prescriptions: No Action insulin regular hum U-500 conc [Humulin R U-500 (Conc) Insulin] 500 unit/mL so lution See Rx Instructions .ROUTE .COMPLEX Qty: 20 RF: 2 multivitamin [One Daily Multivitamin] Tablet 1 tab PO QAM RF: 0 levothyroxine 88 mcg tablet 88 mcg PO QAM RF: 0 cephalexin 500 mg capsule 500 mg PO TID RF: 0 omeprazole 20 mg capsule,delayed release(DR/EC) 20 mg PO QAM RF: 0 zinc 50 mg Tablet 50 mg PO DAILY@1200 RF: 0 furosemide [Lasix] 40 mg Tablet 40 mg PO BID RF: 0 nitrofurantoin macrocrystal 50 mg Capsule 50 mg PO HS RF: 0 atorvastatin [Lipitor] 10 mg Tablet 10 mg PO HS RF: 0 ondansetron HCl [Zofran] 4 mg Tablet 4 mg PO TID PRN (Reason: Nausea) RF: 0 metformin 850 mg Tablet 850 mg PO TID RF: 0 carvedilol 3.125 mg Tablet 3.125 mg PO BID RF: 0 docusate sodium 100 mg Capsule 100 mg PO BID RF: 0 nystatin 100,000 unit/gram Powder 1 applic TOPICAL BID RF: 0 Spiriva with HandiHaler 18 mcg Capsule, W/Inhalation Device 1 cap INHALATION QAM RF: 0 oxycodone 20 mg Tablet 20 mg PO QID RF: 0 cholecalciferol (vitamin D3) [Vitamin D3] 5,000 unit Tablet 5,000 unit PO WE RF: 0 cyanocobalamin (vitamin B-12) 1,000 mcg/mL Kit 1,000 mcg IM Q30D RF: 0 gabapentin 300 mg Capsule 300 mg PO TID Qty: 90 RF: 0 magnesium oxide 400 mg magnesium Capsule 400 mg PO DAILY@1200 RF: 0 ferrous sulfate 325 mg (65 mg iron) tablet 325 mg PO DAILY@1200 RF: 0 cranberry 450 mg Tablet 450 mg PO DAILY@1200 RF: 0 omega 0-sjb-bwk-fish oil [Fish Oil] 1,000 mg (120 mg-180 mg) Capsule 1 cap PO HS RF: 0 Cystex Plus (methenamine-vinh) 162-162.5 mg Tablet 2 tab PO DAILY PRN (Reason: UTI Relief) RF: 0 fluticasone propion-salmeterol [Wixela Inhub] 250-50 mcg/dose blister with device 1 inh inhalation BID RF: 0 lisinopril 5 mg tablet 5 mg PO DAILY@1200 RF: 0 Referrals Referrals: Robbie Yeh [Primary Care Provider] - Discharge Problem: Acute renal failure Qualifiers: Acute renal failure type: unspecified Qualified Code(s): N17.9 - Acute kidney failure, unspecified Cellulitis Qualifiers: Site of cellulitis: unspecified site Qualified Code(s): L03.90 - Cellulitis, unspecified The scribe's documentation has been prepared under my direction and personally reviewed by me in its entirety. I confirm that the note above accurately reflects all work, treatment, procedures, and medical decision making performed by me.
[2019-09-11 11:46] LABS: Basophils # (auto) 0.04 K/uL (0-0.2); Basophils % (auto) 0.3 %; Eosinophils # (auto) 0.36 K/uL (0-0.5); Eosinophils % (auto) 2.5 %; Hemoglobin 7.8 g/dL (12.0-16.0); Immature Granulocytes # (auto) 0.11 K/uL (0.00-0.02); Immature Granulocytes % (auto) 0.8 %; Lymphocytes # (auto) 0.76 K/uL (1.2-3.4); Lymphocytes % (auto) 5.3 %; Mean Corpuscular Hemoglobin 27.8 pg (25-34); Mean Corpuscular Volume 92.5 fL (80-100); Mean Platelet Volume 9.6 fL (7.4-10.4); Monocytes % (auto) 5.6 %; Neutrophils % (auto) 85.5 %; Platelet Count 287 K/uL (130-400); RDW Coefficient of Variation 14.9 % (11.5-14.5); Red Blood Count 2.81 M/uL (4.2-5.4); White Blood Count 14.27 K/uL (4.8-10.8)
[2019-09-11 12:08] LABS: RBC Morphology Unremarkable
[2019-09-11 12:15] LABS: Albumin Globulin Ratio 0.6 (0.9-2); Albumin Level 2.6 gm/dl (3.4-5.0); BUN Creatinine Ratio 17.8 (10-20); Bilirubin,Total 0.2 mg/dl (0.2-1); Calcium 9.6 mg/dl (8.5-10.1); Est GFR (African American) 11.2; Est GFR (Non-African American) 9.7; Globulin 4.3 gm/dl (2.5-4.0); Total Protein 6.9 gm/dl (6.4-8.2)
[2019-09-11 12:16] LABS: Potassium 7.1 mmol/L (3.5-5.1)
[2019-09-11] MEDS ORDERED: ALBUTEROL 0.5% NEB SOLN 2.5 MG/0.5 ML VIAL NEB STA (13:13)
[2019-09-11] MEDS ORDERED: CALCIUM GLUCONATE 10% 1,000 MG in SODIUM CHLORIDE 0.9% 50 ML IV STA ×2 (13:13→21:48)
[2019-09-11] MEDS ORDERED: DEXTROSE 50% 50 ML SYRINGE IV STA (13:13)
[2019-09-11] MEDS ORDERED: SODIUM BICARBONATE 8.4% 150 MEQ in DEXTROSE 5% 1,000 ML IV STA (13:13)
[2019-09-11] MEDS ORDERED: INSULIN HUMAN REGULAR PER UNIT 10 UNITS in SYRINGE 9.9 ML IV STA ×2 (13:13→21:58)
[2019-09-11] MEDS ORDERED: SODIUM POLYSTYRENE SULFONATE 30 GM/120 ML UDP PO STA (13:16)
[2019-09-11] MEDS ORDERED: SODIUM CHLORIDE 0.9% 1000ML 1,000 ML IV ONE (13:18)
[2019-09-11] MEDS ORDERED: NovoLIN-R INSULIN PER UNIT CHARGE ONE (13:33)
[2019-09-11] MEDS ORDERED: SODIUM BICARB 8.4% INJ 50 MEQ/50 ML SYR ONE ×2 (13:49→13:50)
[2019-09-11] MEDS: SODIUM POLYSTYRENE SULFONATE 15G/60ML SUSP PO ONE ×2 (14:24→14:26)
--- NOTE | 2019-09-11 14:29 | History & Physical Report ---
Date of Service September 11, 2019 Assessment & Plan (1) Acute renal failure: Differential includes AIN from Keflex menstruation, ATN from dehydration, or possible UTI. Does not appear urinalysis that has been resulted yet. Will check urine eos. Gentle IV hydration. Consideration to antibiotics depending on results. Patient was given Rocephin in the emergency room, would hold off on further cephalosporins. Patient is on Lasix and lisinopril which we will hold. Check renal ultrasound. Patient is not known to nephrology, will ask for them to consult for further recommendations. (2) Hyperkalemia: Secondary to acute renal failure. Patient does have some peak T waves on EKG but no other significant cardiac changes and is otherwise asymptomatic. Patient was given Kayexalate, IV insulin, and albuterol nebulizer. She was also started on bicarbonate drip. Will recheck potassium and treat further as needed. (3) Cellulitis: Question of ongoing cellulitis of lower extremities. We will ask wound care to evaluate. (4) DM II (diabetes mellitus, type II), controlled: Patient has had previous hypoglycemia is currently getting insulin and dextrose for hyperkalemia. Patient is on metformin which we will hold as the patient is currently renal failure. I will start sliding scale insulin. (5) COPD (chronic obstructive pulmonary disease): Continue outpatient medication regimen. Patient is on 4 L nasal cannula. (6) HLD (hyperlipidemia): Continue outpatient medications as ordered. History of Present Illness Primary Care Provider: Robbie Rao This is a 64-year-old female with past medical history of morbid obesity, urinary retention with chronic Garcia, COPD, type 2 diabetes mellitus the presents today complaining of acute renal failure and altered mental status. Patient is accompanied by her daughter and son-in-law, as they give a decent history. Patient lives with the daughter. She is mostly bedbound secondary to her obesity. She has had a Garcia in place for approximately 2 years secondary to ongoing urinary retention. The daughter noted 1-2 days ago that the output from the Garcia was greatly decreased from usual. While the patient was producing some urine the volume had dropped and seemed to be more concentrated. Patient had "low-grade temps" around 99F. She also felt the patient was more shaky and seemed to be more forgetful. She would ask the same question multiple times. The patient was also previously able to feed herself but this is changed as well. Of note, the patient had recently given Keflex approximately 4 days ago for concern regarding mild cellulitis of her lower extremities. These areas were dressed and are typically cared for by a home wound care nurse. The daughter states that the nurse called into the physician's office and a prescription was called in as they have difficulty transporting the patient to appointments. Patient herself is awake and apparently alert. She denies any chest pain, abdom inal pain, nausea, vomiting, diarrhea, constipation. Of note, the patient has a diffuse macular rash in her chest and upper extremities. Patient states this was previously pruritic but is no longer the case after administration of Benadryl. Allergies Allergy/AdvReac Type Severity Reaction Status Date / Time No Known Allergies Allergy Unverified 09/11/19 11:34 Home Medications Home Medications Medication Instructions Recorded Confirmed Type Spiriva with HandiHaler 1 cap INHALATION QAM 11/15/18 09/11/19 History atorvastatin [Lipitor] 10 mg PO HS 11/15/18 09/11/19 History carvedilol 3.125 mg PO BID 11/15/18 09/11/19 History cholecalciferol (vitamin D3) 5,000 unit PO WE 11/15/18 09/11/19 History [Vitamin D3] cyanocobalamin (vitamin B-12) 1,000 mcg IM Q30D 11/15/18 09/11/19 History docusate sodium 100 mg PO BID 11/15/18 09/11/19 History furosemide [Lasix] 40 mg PO BID 11/15/18 09/11/19 History metformin 850 mg PO TID 11/15/18 09/11/19 History nitrofurantoin macrocrystal 50 mg PO HS 11/15/18 09/11/19 History nystatin 1 applic TOPICAL BID 11/15/18 09/11/19 History ondansetron HCl [Zofran] 4 mg PO TID PRN 11/15/18 09/11/19 History oxycodone 20 mg PO QID 11/15/18 09/11/19 History gabapentin 300 mg PO TID #90 cap 11/19/18 09/11/19 Rx Cystex Plus (methenamine-vinh) 2 tab PO DAILY PRN 03/09/19 09/11/19 History cranberry 450 mg PO DAILY@1200 03/09/19 09/11/19 History ferrous sulfate 325 mg PO DAILY@1200 03/09/19 09/11/19 History fluticasone propion-salmeterol 1 inh INHALATION BID 03/09/19 09/11/19 History [Wixela Inhub] lisinopril 5 mg PO DAILY@1200 03/09/19 09/11/19 History magnesium oxide 400 mg PO DAILY@1200 03/09/19 09/11/19 History omega 3-qmy-dnc-fish oil [Fish Oil] 1 cap PO HS 03/09/19 09/11/19 History insulin regular hum U-500 conc 500 See Rx Instructions .ROUTE 04/23/19 09/11/19 Rx unit/mL subcutaneous soln .COMPLEX #20 milliliter cephalexin 500 mg PO TID 09/11/19 09/11/19 History levothyroxine 88 mcg PO QAM 09/11/19 09/11/19 History multivitamin [One Daily 1 tab PO QAM 09/11/19 09/11/19 History Multivitamin] omeprazole 20 mg PO QAM 09/11/19 09/11/19 History zinc 50 mg PO DAILY@1200 09/11/19 09/11/19 History Past Med/Surg History Medical History 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 No problems noted. 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 Feels Safe at Home: Yes Smoking Status: Former smoker Tobacco Type: cigarettes ; packs per day: 1 ; Second Hand Exposure: No ; Hx Alcohol Use: No Hx Substance Use: No Review of Systems Constitutional: + fever, + fatigue and + weakness; no chills, no weight loss and no weight gain Eyes: as per Subjective / HPI Respiratory: no cough, no chest congestion, no dyspnea and no dyspnea on exertion Cardiovascular: no chest pain, no orthopnea, no palpitations, no lightheadedness and no edema Gastrointestinal: no abdominal pain, no nausea, no vomiting, no constipation and no diarrhea/loose stools Genitourinary: + decreased urination; no dysuria, no difficulty urinating, no urinary frequency, no urinary hesitancy, no urinary urgency, no hematuria and no flank pain Musculoskeletal: no back pain, no neck pain, no joint pain, no stiffness and no myalgia Integumentary: no rash Neurologic: + tremor(s), + confusion and + memory loss; no gait abnormality, no unsteadiness, no falls and no generalized weakness Physical Exam Constitutional: cooperative and + overweight; no acute distress Eyes: PERRL, conjunctivae normal, anicteric sclerae Neck: trachea midline, no thyromegaly Respiratory: normal respiratory effort Auscultation: lungs clear to auscultation bilaterally; no crackles, no rales, no rhonchi and no wheezes Very limited exam secondary to habitus. Of note patient was receiving nebulizer treatment during my exam. Cardiovascular: Rate/Rhythm: regular rate and regular rhythm Heart Sounds: normal S1 and normal S2 Gastrointestinal (Abdomen): Inspection/Auscultation: abdomen normal to inspection Percussion/Palpation: abdomen soft; abdomen nontender, no guarding, abdomen not rigid and no hepatosplenomegaly Skin: no rashes, warm and dry Genitourinary: Garcia catheter in place, small amount of concentrated yellow/orange urine. Minimal sediment. Results & Data Vital Signs (Past 12 Hours) Vital Signs Temp Pulse Pulse Resp BP Pulse Ox 09/11/19 13:34 79 20 100 09/11/19 13:00 78 17 151/137 H 09/11/19 12:00 77 16 157/67 H 09/11/19 11:26 69 18 120/54 L 100 09/11/19 11:23 73 23 83/67 L 100 09/11/19 11:14 74 19 100 09/11/19 10:54 37.0 C 74 20 120/54 L 100 Laboratory Results WBC is 14.2, hemoglobin is 7.8 with hematocrit of 26. This is slightly decreased from laboratory work in July that shows hemoglobin 8.3 and hematocrit of 28.1. Platelet count 287. INR is 1.1. Sodium is 131. Potassium is 7.1. Creatinine is 4.51 with a BUN 82. In July, this was 36/1.32. PG Care Time/CCT Total # of Minutes Spent Total Time Spent with Patient: Total time spent is greater than 50% in coordination of care (as documented) at patient's floor/unit and/or counseling patient: Coding Level of Care Code 29452 Initial Inpt Care Lvl 3 Diagnoses Acute renal failure N17.9 Acute renal failure type: unspecified Hyperkalemia E87.5 Cellulitis L03.90 Site of cellulitis: unspecified site DM II (diabetes mellitus, type II), controlled E11.9 COPD (chronic obstructive pulmonary disease) J44.9 HLD (hyperlipidemia) E78.5 (1) Acute renal failure Acute renal failure type: unspecified Qualified Code(s): N17.9 - Acute kidney failure, unspecified (2) Cellulitis Site of cellulitis: unspecified site Qualified Code(s): L03.90 - Cellulitis, unspecified
--- NOTE | 2019-09-11 15:03 | Electrocardiogram Report ---
Test Reason : Blood Pressure : / mmHG Vent. Rate : 073 BPM Atrial Rate : 073 BPM P-R Int : 176 ms QRS Dur : 100 ms QT Int : 392 ms P-R-T Axes : 023 -03 057 degrees QTc Int : 431 ms Normal sinus rhythm Low voltage QRS Borderline ECG When compared with ECG of 08-MAR-2019 23:25, No significant change was found Confirmed by Yassine Lane ([id number]) on 09/11/2019 3:03:12 PM Referred By: REFERRED SELF Confirmed By:Pawel Lane
[2019-09-11] MEDS ORDERED: GLUCOSE 40% GEL 15 GM TUBE PO PRN (18:08)
[2019-09-11] MEDS ORDERED: CARBOHYDRATES FOR HYPOGLYCEMIA PO PRN (18:08)
[2019-09-11] MEDS ORDERED: DEXTROSE 50% 50 ML SYRINGE IV PRN (18:08)
[2019-09-11] MEDS ORDERED: ONDANSETRON INJ 2 MG/ML 2 ML VIAL IV PRN (18:08)
[2019-09-11] MEDS ORDERED: GLUCOSE 10 TABS/TUBE PO PRN (18:08)
[2019-09-11] MEDS ORDERED: ACETAMINOPHEN 325 MG TAB PO PRN (18:08)
[2019-09-11] MEDS ORDERED: GLUCAGON FOR INJ 1 MG VIAL SQ PRN (18:08)
[2019-09-11] MEDS ORDERED: ONDANSETRON 4 MG OD TAB PO PRN (18:26)
[2019-09-11] MEDS: OXYCODONE HCL IR 5 MG TAB (IMMEDIATE RELEASE) PO SCH ×2 (18:45→22:38)
[2019-09-11 19:01] LABS: Appearance Urine Turbid (Clear); Bilirubin Urine Negative (Negative); Blood Urine 3+ (Negative); Color Urine Yellow; Epithelial Cell Urine Auto >30 /lpf (0-5); Glucose Urine UA Negative (Negative); Ketones Urine Negative (Negative); Leukocyte Esterase Urine 2+ (Negative); Nitrite Urine Negative (Negative); Protein Urine 3+ (Negative); RBC Urine Automated >30 /hpf (0-4); Specific Gravity Urine 1.015 (1.000-1.030); Urobilinogen Urine Negative (Negative); WBC Urine Automated >30 /hpf (0-5)
[2019-09-11 19:10] LABS: Bacteria Urine Automated 1+ (Negative)
[2019-09-11] MEDS ORDERED: PHARMACY GLYCEMIC MGMT CONSULT PRN (19:50)
[2019-09-11 20:14] LABS: BUN Creatinine Ratio 16.2 (10-20); Calcium 8.5 mg/dl (8.5-10.1); Creatinine Clr Calc Pharmacy 20.2 ml/min; Est GFR (African American) 10.4
[2019-09-11] MEDS ORDERED: DOCUSATE SODIUM 100 MG CAP PO SCH (21:00)
[2019-09-11] MEDS ORDERED: carvediloL 3.125 MG TAB PO SCH (21:00)
[2019-09-11] MEDS ORDERED: NYSTATIN POWDER 15GM BTL EXT SCH (21:00)
[2019-09-11] MEDS ORDERED: GABAPENTIN 300 MG CAP PO SCH (21:00)
[2019-09-11] MEDS ORDERED: ATORVASTATIN 10 MG TAB PO SCH (21:00)
[2019-09-11] MEDS ORDERED: OMEGA-3 (PURIFIED FISH OIL) 1 GM CAP PO SCH (21:00)
--- NOTE | 2019-09-11 21:41 | Ultrasound Report ---
EXAMINATION: RENAL ULTRASOUND CLINICAL HISTORY: Acute renal failure COMPARISON STUDY: FINDINGS: The right kidney measures 12 cm. The left kidney measures 14 cm. There is no evidence of h ydronephrosis. There are no renal masses. There is a joint Garcia catheter. The bladder was poorly visualized as it was collapsed. Study was limited from a technical standpoint secondary to morbid obesity IMPRESSION : 1. Technically limited study secondary to morbid obesity 2. No evidence of hydronephrosis ACT 112: Negative or not required by law. Electronically signed by: Amadeo Orellana M.D. 09/11/2019 9:40 PM
[2019-09-11] MEDS ORDERED: INSULIN HUMAN REGULAR PER UNIT 10 UNITS in SYRINGE 0 ML IV STA (21:53)
[2019-09-11] MEDS ORDERED: DEXTROSE 50% 50 ML SYRINGE IV ONE ×2 (21:53→23:00)
[2019-09-11] MEDS ORDERED: HEPARIN SOD 5,000 UNIT/0.5 ML VIAL SQ SCH (22:00)
[2019-09-11] MEDS: INSULIN ASPART 100 UNITS/ML 3 ML PEN SC SCH ×2 (22:21→22:22)
[2019-09-11] MEDS ORDERED: INSULIN PROTOCOL GOAL RANGE ONE (22:33)
[2019-09-11] MEDS ORDERED: DEXTROSE 10% 1,000 ML IV SCH (22:45)
[2019-09-11] MEDS ORDERED: INSULIN REGULAR 250 UNITS in SODIUM CHLORIDE 0.9% 247.5 ML IV SCH (22:45)
[2019-09-11 22:49] LABS: iSTAT Allen Test Pass; iSTAT Art Bld Gas pCO2 Correct 44 mmHg (35-46); iSTAT Art Bld Gas pH Corrected 7.392 (7.35-7.45); iSTAT Arterial Blood Gas HCO3 27 meg/L (19-24); iSTAT Arterial Blood Gas pCO2 44 mmHg (35-46); iSTAT Arterial Blood Gas pH 7.39 (7.35-7.45); iSTAT Arterial Blood Gas pO2 83 mmHg (80-95); iSTAT Arterial Blood Gas pO2 C 83; iSTAT Carbon Dioxide 28 mmol/L (24-31); iSTAT Hematocrit 19 % (37-47); iSTAT Hemoglobin 6.5 g/dl (12.0-16.0); iSTAT Potassium 6.5 mmol/L (3.3-5.0); iSTAT Site L Radial; iSTAT Sodium 130 mmol/L (135-144)
[2019-09-11] MEDS ORDERED: INSULIN HUMAN REGULAR PER UNIT 10 UNITS in SYRINGE 9.9 ML IV SCH (23:00)
--- NOTE | 2019-09-11 23:14 | Communication Note ---
Date of Service: September 11, 2019 S: I was paged the room at approximately 10:00 PM due to critical lab values. Patient was admitted to the hospital with a creatinine of 4.51 and potassium of 7.1, repeat was 4.79 and potassium was 7.8. Indicating worsening of her acute renal failure. Patient was arousable, and able to converse reporting that she was in no pain, however did not feel well. Telemetry indicated peaked T waves O: Cards: Regular rate and rhythm, no murmurs rubs or gallops Resp: CTA BL Neuro: Arousable and alert and oriented, however would fall back asleep quickly, reported no sensorimotor changes A/P 64-year-old female with acute onset of acute renal failure and worsening lab values necessitating transfer emergent dialysis. #ARF Transferred to [facility] for emergent dialysis. Will have an ICU bed available in 1 to 2 hours, spoke to Cecil Savage the accepting provider at [facility]. #Hyperkalemia Patient is status post Kayexalate, albuterol, and a dose of insulin received in the emergency department. Repeat labs demonstrate increase in her potassium. -Administer 1 g calcium gluconate, repeat Ca gluconate at 0000 -Starting insulin drip with D10 -Repeat BMP pending Resident Activity Tracking Resident Involvement: Resident Care Provided Care Provided: Adult Hospital Medicine
[2019-09-11 23:48] LABS: Calcium 8.6 mg/dl (8.5-10.1); Est GFR (African American) 10.3; Est GFR (Non-African American) 8.9; Potassium 6.8 mmol/L (3.5-5.1)
[2019-09-12] MEDS ORDERED: INSULIN HUMAN NPH SC SCH
--- NOTE | 2019-09-12 02:12 | Discharge Summary ---
Date of Service September 12, 2019 Admission HPI Per Admitting Provider This is a 64-year-old female with past medical history of morbid obesity, urinary retention with chronic Garcia, COPD, type 2 diabetes mellitus the presents today complaining of acute renal failure and altered mental status. Patient is accompanied by her daughter and son-in-law, as they give a decent history. Patient lives with the daughter. She is mostly bedbound secondary to her obesity. She has had a Garcia in place for approximately 2 years secondary to ongoing urinary retention. The daughter noted 1-2 days ago that the output from the Garcia was greatly decreased from usual. While the patient was producing some urine the volume had dropped and seemed to be more concentrated. Patient had "low-grade temps" around 99F. She also felt the patient was more shaky and seemed to be more forgetful. She would ask the same question multiple times. The patient was also previously able to feed herself but this is changed as well. Of note, the patient had recently given Keflex approximately 4 days ago for concern regarding mild cellulitis of her lower extremities. These areas were dressed and are typically cared for by a home wound care nurse. The daughter states that the nurse called into the physician's office and a prescription was called in as they have difficulty transporting the patient to appointments. Patient herself is awake and apparently alert. She denies any chest pain, abdominal pain, nausea, vomiting, diarrhea, constipation. Of note, the patient has a diffuse macular rash in her chest and upper extremities. Patient states this was previously pruritic but is no longer the case after administration of Benadryl. Admission Exam Per Admitting Provider Constitutional: cooperative and + overweight; no acute distress Eyes: PERRL, conjunctivae normal, anicteric sclerae Neck: trachea midline, no thyromegaly Respiratory: normal respiratory effort Auscultation: lungs clear to auscultation bilaterally; no crackles, no rales, no rhonchi and no wheezes Very limited exam secondary to habitus. Of note patient was receiving nebulizer treatment during my exam. Cardiovascular: Rate/Rhythm: regular rate and regular rhythm Heart Sounds: normal S1 and normal S2 Gastrointestinal (Abdomen): Inspection/Auscultation: abdomen normal to inspection Percussion/Palpation: abdomen soft; abdomen nontender, no guarding, abdomen not rigid and no hepatosplenomegaly Skin: no rashes, warm and dry Genitourinary: Garcia catheter in place, small amount of concentrated yellow/orange urine. Minimal sediment. Principal Diagnosis ARF Discharge Exam General:Morbidly obese female somnolent, no acute distress HEENT: Normocephalic atraumatic Neck: Normal to visual inspection, trachea midline, unable to assess JVD due to adiposity Cardiac: Regular rate and rhythm, I did not appreciate significant murmurs rubs or gallops, normal S1, normal S2, 4+ pedal edema bilaterally, negative calf tenderness Respiratory: Clear to auscultation bilaterally did not appreciate significant wheezes, rales, rhonchi however the exam was severely limited by body habitus GI: Soft, nontender, nondistended Neuro: Responded to stimulation, I was able to verbally converse however would then become somnolent Discharge Data Allergies Allergy/AdvReac Type Severity Reaction Status Date / Time No Known Allergies Allergy Unverified 09/11/19 11:34 Consultations 09/11/19 13:31 ED Decision to Admit Stat 09/11/19 18:08 Consult Nephrology Routine 09/11/19 22:20 Burn CD for patient Stat Ordered Studies 09/11/19 18:08 US renal/blad retro comp Routine Hospital Course (1) Acute renal failure: (1) Acute renal failure: Patient without significant history of kidney disease presents with acute elevation in creatinine. Differential includes AIN from Keflex administration, ATN from dehydration, or possible UTI. Patient was given Rocephin in the emergency room, would hold off on further cephalosporins. Patient is on Lasix and lisinopril which we will hold. Pertinent labs in ED demonstrated creatinine of 4.5 and potassium of 7.1, patient was administered Kayexalate, insulin, albuterol and labs rechecked demonstrating an increasing creatinine to 4.8 and potassium to 7.6. The patient was subsequently started on insulin drip with D10 and her potassium improved to 6.8. Given her difficult to control potassium, and uric state, and elevated creatinine the decision was made to transfer the patient to [facility] for emergent dialysis and admission to their ICU. (2) Hyperkalemia: Secondary to acute renal failure. Patient does have some peak T waves on EKG but no other significant cardiac changes and is otherwise asymptomatic. Patient was given Kayexalate, IV insulin, and albuterol nebulizer. She was also started on bicarbonate drip. See above (3) Cellulitis: Question of ongoing cellulitis of lower extremities. We will ask wound care to evaluate. (4) DM II (diabetes mellitus, type II), controlled: Patient on metformin which is currently hold given her current renal failure, patient was started on sliding scale insulin (5) COPD (chronic obstructive pulmonary disease): Continue outpatient medication regimen. Patient is on 4 L nasal cannula. (6) HLD (hyperlipidemia): Continue outpatient medications as ordered. FENa: DM 2 diet Code Status: Full code DVT PPX: Heparin Dispo: Transfer to [facility] for escalation of care. Vincent Dial MD PGY 2, FCM This chart was completed utilizing [employer] voice recognition software. Grammatical errors, random word insertions, pronoun errors, and in complete sentences are an occasional consequence of the system. Any questions or concerns about the content, text, or information contained within the body of this dictation should be addressed directly to the physician for clarification. (2) Hyperkalemia: (3) Cellulitis: (4) DM II (diabetes mellitus, type II), controlled: (5) COPD (chronic obstructive pulmonary disease): (6) HLD (hyperlipidemia): Total Time Total Time Spent Total Time Spent (In Minutes): >30 Discharge Plan Discharge Items Patient Disposition: Transfer Acute Care Hospital Reason For Visit: ACUTE RENAL FAILURE Discharge Diagnosis: ARF Activity: Resume your previous activity Non-emergency contact: Primary Care Provider Call non-emergency contact if: your symptoms worsen Follow-up/Referrals: Robbie Yeh [Primary Care Provider] - Diet: Carb Consistent or DM2 and Dialysis Renal Addtl Attending Provider Instructions: (1) Acute renal failure: Patient without significant history of kidney disease presents with acute elevation in creatinine. Differential includes AIN from Keflex administration, ATN from dehydration, or possible UTI. Patient was given Rocephin in the emergency room, would hold off on further cephalosporins. Patient is on Lasix and lisinopril which we will hold. Pertinent labs in ED demonstrated creatinine of 4.5 and potassium of 7.1, patient was administered Kayexalate, insulin, albuterol and labs rechecked demonstrating an increasing creatinine to 4.8 and potassium to 7.6. The patient was subsequently started on insulin drip with D10 and her potassium improved to 6.8. Given her difficult to control potassium, and uric state, and elevated creatinine the decision was made to transfer the patient to [facility] for emergent dialysis and admission to their ICU. (2) Hyperkalemia: Secondary to acute renal failure. Patient does have some peak T waves on EKG but no other significant cardiac changes and is otherwise asymptomatic. Patient was given Kayexalate, IV insulin, and albuterol nebulizer. She was also started on bicarbonate drip. See above (3) Cellulitis: Question of ongoing cellulitis of lower extremities. We will ask wound care to evaluate. (4) DM II (diabetes mellitus, type II), controlled: Patient on metformin which is currently hold given her current renal failure, patient was started on sliding scale insulin (5) COPD (chronic obstructive pulmonary disease): Continue outpatient medication regimen. Patient is on 4 L nasal cannula. (6) HLD (hyperlipidemia): Continue outpatient medications as ordered. FENa: DM 2 diet Code Status: Full code DVT PPX: Heparin Dispo: Transfer to [facility] for escalation of care. Vincent Dial MD PGY 2, FCM This chart was completed utilizing [employer] voice recognition software. Grammatical errors, random word insertions, pronoun errors, and in complete sentences are an occasional consequence of the system. Any questions or concerns about the content, text, or information contained within the body of this dictation should be addressed directly to the physician for clarification. Pending Studies at Discharge: No Stand-Alone Forms: My [facility] Skilled Items Patient informed of condition?: Yes DNR: No Discharge Level of Care: Other Communicable Disease: No Discharge Prognosis: Deteriorating Lines: Peripheral IV Urinary Catheter: Yes Medications and DC Order Prescriptions: Continued insulin regular hum U-500 conc [Humulin R U-500 (Conc) Insulin] 500 unit/mL solution See Rx Instructions .ROUTE .COMPLEX Qty: 20 RF: 2 multivitamin [One Daily Multivitamin] Tablet 1 tab PO QAM RF: 0 levothyroxine 88 mcg tablet 88 mcg PO QAM RF: 0 cephalexin 500 mg capsule 500 mg PO TID RF: 0 omeprazole 20 mg capsule,delayed release(DR/EC) 20 mg PO QAM RF: 0 zinc 50 mg Tablet 50 mg PO DAILY@1200 RF: 0 furosemide [Lasix] 40 mg Tablet 40 mg PO BID RF: 0 nitrofurantoin macrocrystal 50 mg Capsule 50 mg PO HS RF: 0 atorvastatin [Lipitor] 10 mg Tablet 10 mg PO HS RF: 0 ondansetron HCl [Zofran] 4 mg Tablet 4 mg PO TID PRN (Reason: Nausea) RF: 0 metformin 850 mg Tablet 850 mg PO TID RF: 0 carvedilol 3.125 mg Tablet 3.125 mg PO BID RF: 0 docusate sodium 100 mg Capsule 100 mg PO BID RF: 0 nystatin 100,000 unit/gram Powder 1 applic TOPICAL BID RF: 0 Spiriva with HandiHaler 18 mcg Capsule, W/Inhalation Device 1 cap INHALATION QAM RF: 0 oxycodone 20 mg Tablet 20 mg PO QID RF: 0 cholecalciferol (vitamin D3) [Vitamin D3] 5,000 unit Tablet 5,000 unit PO WE RF: 0 cyanocobalamin (vitamin B-12) 1,000 mcg/mL Kit 1,000 mcg IM Q30D RF: 0 gabapentin 300 mg Capsule 300 mg PO TID Qty: 90 RF: 0 magnesium oxide 400 mg magnesium Capsule 400 mg PO DAILY@1200 RF: 0 ferrous sulfate 325 mg (65 mg iron) tablet 325 mg PO DAILY@1200 RF: 0 cranberry 450 mg Tablet 450 mg PO DAILY@1200 RF: 0 omega 6-sxr-zkx-fish oil [Fish Oil] 1,000 mg (120 mg-180 mg) Capsule 1 cap PO HS RF: 0 Cystex Plus (methenamine-vinh) 162-162.5 mg Tablet 2 tab PO DAILY PRN (Reason: UTI Relief) RF: 0 fluticasone propion-salmeterol [Wixela Inhub] 250-50 mcg/dose blister with dev ice 1 inh inhalation BID RF: 0 lisinopril 5 mg tablet 5 mg PO DAILY@1200 RF: 0 Discharge Orders: Discharge Order (Routine); Ordered 09/12/19 Ordered By: Vincent Pteerson/Other Patient Handouts: Acute Kidney Injury Dc Admission Data Admit Date/Time: 09/11/19 15:01 Attending Provider: Rodney Cook Admit Provider: Rodney Cook Primary Care Provider: Robbie Yeh Other Providers: Rodney Cook Jonathan Other Interventions: Discharge Summary Assessment (RN) Last Done: 09/12/19 01:30 DC Date/Time DO NOT enter until pt leaves facility: 09/12/19 01:30 Resident Activity Tracking Resident Involvement: Resident Care Provided Care Provided: Adult Hospital Medicine
[2019-09-12] MEDS ORDERED: LEVOTHYROXINE SODIUM 88 MCG TABLET PO SCH (06:30)
[2019-09-12] MEDS ORDERED: INSULIN ASPART 100 UNITS/ML 3 ML PEN SC SCH ×2 (07:30)
[2019-09-12] MEDS ORDERED: FLUTICASONE/VILANTEROL 100/25MCG 14 PUFFS/INHALER INH SCH (09:00)
[2019-09-12] MEDS ORDERED: UMECLIDINIUM BROMIDE 62.5MCG/BLISTER 7 PUFFS/INHALER INH SCH (09:00)
[2019-09-12] MEDS ORDERED: MULTIVITAMIN TAB PO SCH (09:00)
[2019-09-12] MEDS ORDERED: PANTOprazole 40 MG TAB PO SCH (09:00)
[2019-09-12] MEDS ORDERED: CHOLECALCIFEROL 1,000 UNITS 25 MCG TAB PO SCH (09:00)
[2019-09-12] MEDS ORDERED: NON-FORMULARY MEDICATION (Cranberry Fruit [Cranberry] 450 MG) PO SCH (12:00)
[2019-09-12] MEDS ORDERED: ZINC SULFATE 220 MG CAPSULE PO SCH (12:00)
[2019-09-12] MEDS ORDERED: FERROUS SULFATE 325 MG TAB PO SCH (12:00)
[2019-09-16] MEDS ORDERED: CYANOCOBALAMIN 1000 MCG/ML VIAL IM SCH (09:00)
== END 2019-09-12 01:30 | disposition short-term general hospital (02) | DRG 683 ==
LOC: ED 11:04 → 2S 15:01

== ENCOUNTER 2019-10-19 15:16 | Inpatient (IN) ==
--- NOTE | 2019-10-19 15:23 | Emergency Department Note ---
History of Present Illness General Chief complaint: Urinary Symptoms Stated complaint: URINARY SX, WEAKNESS, Time Seen by Provider: 10/19/19 15:20 History of Present Illness Provider complaint: weakness 64-year-old morbidly obese bedbound female presents emergency department for weakness. Patient states she has been feeling weak and went to her PCP who told her to come into the emergency department because her kidney levels were off. She reports no falls. No fevers. Patient does states she feels like she has in the past with UTI. Patient has chronic indwelling Garcia catheter. Home Medications Home Medications Medication Instructions Recorded Confirmed Type Spiriva with HandiHaler 1 cap INHALATION QAM 11/15/18 10/19/19 History carvedilol 3.125 mg PO BID 11/15/18 10/19/19 History cholecalciferol (vitamin D3) 5,000 unit PO WE 11/15/18 10/19/19 History [Vitamin D3] cyanocobalamin (vitamin B-12) 1,000 mcg IM Q30D 11/15/18 10/19/19 History docusate sodium 100 mg PO BID 11/15/18 10/19/19 History furosemide [Lasix] 40 mg PO BID 11/15/18 10/19/19 History metformin 850 mg PO TID 11/15/18 10/19/19 History nitrofurantoin macrocrystal 50 mg PO HS 11/15/18 10/19/19 History nystatin 1 applic TOPICAL BID 11/15/18 10/19/19 History oxycodone 20 mg PO QID 11/15/18 10/19/19 History gabapentin 300 mg PO TID #90 cap 11/19/18 10/19/19 Rx Cystex Plus (methenamine-vinh) 2 tab PO DAILY PRN 03/09/19 10/19/19 History cranberry 450 mg PO DAILY@1200 03/09/19 10/19/19 History ferrous sulfate 325 mg PO DAILY@1200 03/09/19 10/19/19 History fluticasone propion-salmeterol 1 inh INHALATION BID 03/09/19 10/19/19 History [Wixela Inhub] lisinopril 5 mg PO DAILY@1200 03/09/19 10/19/19 History magnesium oxide 400 mg PO DAILY@1200 03/09/19 10/19/19 History omega 1-qyi-ywb-fish oil [Fish Oil] 1 cap PO HS 03/09/19 10/19/19 History insulin regular hum U-500 conc 500 See Rx Instructions .ROUTE 04/23/19 10/19/19 Rx unit/mL subcutaneous soln .COMPLEX #20 milliliter levothyroxine 88 mcg PO QAM 09/11/19 10/19/19 History multivitamin [One Daily 1 tab PO QAM 09/11/19 10/19/19 History Multivitamin] omeprazole 20 mg PO QAM 09/11/19 10/19/19 History zinc 50 mg PO DAILY@1200 09/11/19 10/19/19 History bumetanide 1 mg PO BID 10/19/19 10/19/19 History Allergies Allergy/AdvReac Type Severity Reaction Status Date / Time cephalexin [From Keflex] Allergy Mild Rash Unverified 10/19/19 17:07 Past Med/Surg History Medical History 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 No problems noted. Social History Preferred Language: Thai Communication Ability: Effective Anesthesiology Faculty Required: No Beliefs That Will Affect Care: None marital status: marital status details: Current Living Situation: Spouse and Family Current Living Situation Comment: Lives with and daughter. 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 Feels Safe at Home: Yes Smoking Status: Former smoker Tobacco Type: cigarettes ; packs per day: 1 ; Second Hand Exposure: No ; Hx Alcohol Use: No Hx Substance Use: No Review of Systems A total of 10 systems reviewed and were otherwise negative Physical Exam Vital Signs Vital Signs - 24 hr 10/19/19 15:24 10/19/19 15:27 10/19/19 15:30 Temperature Temperature Source Pulse Rate 74 78 76 Pulse Rate [Right Radial] Pulse Rate from SpO2 Sensor 74 79 77 Respiratory Rate 22 19 22 Respiratory Effort / Characteristics Respiratory Depth Respiratory Pattern Blood Pressure 102/58 L Blood Pressure [Left Arm] Blood Pressure Mean 75 Blood Pressure Mean [Left Arm] Blood Pressure Position [Left Arm] Pulse Oximetry 99 100 99 Oxygen Delivery Method Oxygen Flow Rate Sepsis Recent Fever Within 48 Hours Sepsis New/Unexplained Change in Mental Status Sepsis Action Taken by Nursing 10/19/19 15:31 10/19/19 15:32 10/19/19 15:35 Temperature 36.9 C Temperature Source Oral Pulse Rate 75 72 80 Pulse Rate [Right Radial] Pulse Rate from SpO2 Sensor 76 73 Respiratory Rate 19 20 Respiratory Effort / Characteristics Respiratory Depth Normal Respiratory Pattern Regular Blood Pressure 98/77 L 102/58 L Blood Pressure [Left Arm] Blood Pressure Mean 91 72 Blood Pressure Mean [Left Arm] Blood Pressure Position [Left Arm] Pulse Oximetry 99 99 99 Oxygen Delivery Method Nasal Cannula Oxygen Flow Rate 3 Sepsis Recent Fever Within 48 Hours No Sepsis New/Unexplained Change in Mental Status No Sepsis Action Taken by Nursing No Action Required 10/19/19 16:00 10/19/19 16:30 10/19/19 16:32 Temperature Temperature Source Pulse Rate 74 80 78 Pulse Rate [Right Radial] Pulse Rate from SpO2 Sensor 74 80 79 Respiratory Rate 23 23 Respiratory Effort / Characteristics Respiratory Depth Respiratory Pattern Blood Pressure 116/55 L Blood Pressure [Left Arm] Blood Pressure Mean 73 Blood Pressure Mean [Left Arm] Blood Pressure Position [Left Arm] Pulse Oximetry 100 99 98 Oxygen Delivery Method Oxygen Flow Rate Sepsis Recent Fever Within 48 Hours Sepsis New/Unexplained Change in Mental Status Sepsis Action Taken by Nursing 10/19/19 16:40 10/19/19 17:16 10/19/19 17:40 Temperature Temperature Source Pulse Rate 87 Pulse Rate [Right Radial] 81 Pulse Rate from SpO2 Sensor 88 Respiratory Rate 20 22 Respiratory Effort / Characteristics Non-Labored Spontaneous Respiratory Depth Respiratory Pattern Blood Pressure 93/53 L Blood Pressure [Left Arm] 115/72 Blood Pressure Mean 70 Blood Pressure Mean [Left Arm] 86 Blood Pressure Position [Left Arm] Sitting Pulse Oximetry 100 100 Oxygen Delivery Method Nasal Cannula Oxygen Flow Rate 4 Sepsis Recent Fever Within 48 Hours Sepsis New/Unexplained Change in Mental Status Sepsis Action Taken by Nursing Physical Exam HENT: Exam performed. -Head: Normocephalic and atraumatic. -Right Ear: External ear normal. No mastoid tenderness. -Left Ear: External ear normal. No mastoid tenderness. -Mouth/Throat: The oropharynx is clear and moist. No trismus in the jaw. No dental abscesses or uvula swelling. No oropharyngeal exudate or tonsillar abscesses. EYES: Conjunctivae and EOM are normal. Pupils are equal, round, and reactive to light. Right eye exhibits no discharge. Left eye exhibits no discharge. No scleral icterus. NECK: Normal range of motion. Neck supple. No JVD present. No spinous process tenderness present. No carotid bruit present. No rigidity. No tracheal deviation and normal range of motion present. No Brudzinski's sign and no Kernig's sign noted. CV: Normal rate, regular rhythm, normal heart sounds and intact distal pulses. There is no peripheral edema. Palpable radial pulses bue. PULM/CHEST: Rhonchi bilaterally -Chest Wall: She exhibits no tenderness. ABD: The abdomen is soft. Morbidly obese NEURO: She is alert and oriented to person, place, and time.GCS eye subscore is 4. GCS verbal subscore is 5. GCS motor subscore is 6. SKIN: Wounds over the bilateral lower extremities. Course Course 1521: The patient was evaluated in room A3. A complete history and physical exam was performed. EMR reviewed. Patient has a history of sepsis, acute renal failure, morbid obesity, chronic indwelling Garcia catheter, and is bedbound due to her obesity. Patient was seen in the emergency department September 11, 2019 at which time she was admitted for acute renal failure she had a potassium of 7.1 and creatinine of 4.5. The patient was subsequently transferred to [facility] on September 12, 2019 for emergent dialysis. Cardiac monitoring: An order was placed for continuous cardiac monitoring. The monitor shows a rate of 90 with sinus rhythm. Peak T waves present on the monitor car operator. EKG shows sinus rhythm with rate of 76. GA QRS and QTc intervals within normal limits. No ST elevation. There is T wave inversion in lead aVL V2. These are new from the EKG done on September 11, 2019. Peak T waves are present in leads II, aVF, V4, V5 V6. Given this the patient was treated with calcium gluconate 1 g IV prior to knowing the results of her labs for most likely hyperkalemia. 1603: Vital signs stable. POC i-STAT shows potassium of 6 and creatinine of 2.8. Glucose 105. In addition to the calcium gluconate that was already ordered the patient will be given 1 amp of D50, 10 units of insulin, and Kayexalate 30 g. We will hold off on giving sodium bicarb until we see the patient's blood gas that is been ordered. We will plan on admitting the patient. 1618: Vital signs stable. POC lactic acid less than 2. EMR reviewed. Patient had a urine culture on March 09, 2019 which grew out Klebsiella and urine culture on November 15, 2018 which grew out Pseudomonas. Both were sensitive to cefepime. Patient does have a leukocytosis of 14.2. The rest of the lab work including formal renal profile and lactic acid are pending. Given the leukocytosis and the urine from her catheter appearing infected grossly the patient will be treated with cefepime IV piggyback. Nursing did call and inform me that the patient's catheter does not appear to be placed properly and urine is leaking from around the catheter. Nursing was instructed to change the catheter. 1657: Vital signs stable. Sodium 135. Potassium 5.9. BUN 97 and creatinine 2.66. Lactic acid within normal limits. Discussed with nephrology Dr. Mcgraw who states that there is no dialysis available at this time at this facility. She states she would like to see if the potassium is coming down before we decide if we are going to admit the patient to this facility or transfer to another facility. She states to repeat the potassium in the next half hour. Patient also be given [address] of the abdomen will also be ordered. Dr. Mcgraw states to call her back at [phone] with the results of the potassium to help determine if the patient can stay at [facility] [address]. 1845: Vital signs stable. Patient's repeat labs status post calcium gluconate, insulin, nebulized albuterol show a potassium 5.6, BUN of 89, and a creatinine of 2.47. Spoke with Dr. Mcgraw states to call her back at [phone] who states that the patient can be admitted to the hospitalist service and she and her partner will be on consult. Spoke with Dr. Andino about any hospitalist who agreed to the admission. Patient was supposed get a CT of her abdomen however she refused it saying she will not fit in the CT scanner, thus we will obtain an ultrasound of her kidneys. Administered Medications Sodium Chloride (Nss 1000ml) 1,000 mls @ 125 mls/hr IV .Q8H RUSS Stop: 11/18/19 17:14 Last Admin: 10/19/19 17:42 Dose: 125 mls/hr Documented by: [id number] Discontinued Medications Albuterol (Ventolin 0.5% 2.5mg/0.5ml) 10 mg NEB NOW STA Stop: 10/19/19 16:52 Last Admin: 10/19/19 17:13 Dose: 10 mg Documented by: [id number] Dextrose (Dextrose 50%) 50 ml IV NOW STA Stop: 10/19/19 16:02 Last Admin: 10/19/19 16:18 Dose: 50 ml Documented by: [id number] Sodium Chloride (Nss 1000ml) 1,000 mls @ 999 mls/hr IV .Q1H1M ONE Stop: 10/19/19 16:30 Last Infusion: 10/19/19 16:59 Dose: 0 mls/hr Documented by: [id number] Admin: 10/19/19 15:53 Dose: 999 mls/hr Documented by: [id number] Calcium Gluconate 1,000 mg/ (Sodium Chloride) 60 mls @ 240 mls/hr IV NOW STA Stop: 10/19/19 15:50 Last Infusion: 10/19/19 16:08 Dose: 0 mls/hr Documented by: [id number] Admin: 10/19/19 15:52 Dose: 240 mls/hr Documented by: [id number] Insulin Human Regular 10 units (/ Syringe) 9.9 mls @ 3 mls/sec IV ONE STA Stop: 10/19/19 16:02 Last Admin: 10/19/19 16:18 Dose: 3 mls/sec Documented by: [id number] Cosigned by: [id number] Cefepime HCl (Maxipime) 2,000 mg in 20 mls @ 5 mls/min IV NOW STA; Protocol Stop: 10/19/19 16:20 Last Admin: 10/19/19 16:36 Dose: 5 mls/min Documented by: [id number] Insulin Human Regular (Novolin R U-100 Per Unit) Confirm Administered Dose 10 units .ROUTE .STK-MED ONE Stop: 10/19/19 16:13 Last Admin: 10/19/19 16:18 Dose: Not Given Documented by: [id number] Sodium Polystyrene Sulfonate (Kayexalate) 30 gm PO NOW STA Stop: 10/19/19 16:02 Last Admin: 10/19/19 16:17 Dose: 30 gm Documented by: [id number] Critical Care Time Critical Care Time: Yes Total Critical Care Time: 120 I have personally spent greater than 120 minutes of critical care time in the direct management of this patient. This includes bedside care, interpretation of diagnostic studies, and testing, discussion with consultants, patient, and family members, and other required patient management activities. This 120 minutes is in excess of all separately billable procedures. Medical Decision Making Laboratory Data Result diagrams: 10/19/19 15:58 10/19/19 18:11 Lab Results 10/19/19 10/19/19 10/19/19 Range/Units 15:43 15:54 15:55 WBC (4.8-10.8) K/uL RBC (4.2-5.4) M/uL Hgb (12.0-16.0) g/dL POC Hgb (12.0-16.0) g/dl Hct (37-47) % POC Hct (37-47) % MCV (80-100) fL MCH (25-34) pg MCHC (32-36) g/dL RDW Std Deviation (36.4-46.3) fL RDW Coeff of Tamra (11.5-14.5) % Plt Count (130-400) K/uL MPV (7.4-10.4) fL Immature Gran % (Auto) % Neut % (Auto) % Lymph % (Auto) % Carroll % (Auto) % Eos % (Auto) % Baso % (Auto) % Immature Gran # (Auto) (0.00-0.02) K/uL Neut # (Auto) (1.4-6.5) K/uL Lymph # (Auto) (1.2-3.4) K/uL Carroll # (Auto) (0.11-0.59) K/uL Eos # (Auto) (0-0.5) K/uL Baso # (Auto) (0-0.2) K/uL Absolute Nucleated RBC (0-0) K/uL Nucleated RBC % (auto) % PT (9.0-12.0) Seconds INR (0.9-1.1) APTT (21.0-31.0) Seconds PTT Ratio VBG pH (7.36-7.41) VBG pCO2 (38-50) mmHg VBG pO2 mmHg VBG HCO3 mmol/L VBG O2 Saturation % VBG Base Excess mEq/L Barometric Pressure mm/Hg POC Sodium (135-144) mmol/L Sodium (136-145) mmol/L POC Potassium (3.3-5.0) mmol/L Potassium (3.5-5.1) mmol/L POC Chloride (101-112) mmol/L Chloride (98-107) mmol/L Carbon Dioxide (21-32) mmol/L POC Total CO2 (24-31) mEq/l Anion Gap (3-11) POC Anion Gap (16-25) mmol/L POC BUN (7-18) mg/dl BUN (7-18) mg/dl Creatinine (0.6-1.2) mg/dl POC Creatinine (0.6-1.3) mg/dl Est Cr Clr Drug Dosing ml/min Est GFR ( Amer) Est GFR (Non-Af Amer) BUN/Creatinine Ratio (10-20) Glucose (70-99) mg/dl POC Glucose 105 H (70-99) mg/dl POC Glucose (other) (70-99) mg/dl POC Lactic Acid Azael (0.90-1.70) mmol/L Lactate (0.4-2.0) mmol/L Calcium (8.5-10.1) mg/dl POC Ioniz Calcium Esau (1.12-1.32) mmol/l Magnesium (1.8-2.4) mg/dl Total Bilirubin (0.2-1) mg/dl AST (15-37) U/L ALT (12-78) U/L Alkaline Phosphatase (45-117) U/L Troponin I (0-0.045) ng/ml Total Protein (6.4-8.2) gm/dl Albumin (3.4-5.0) gm/dl Globulin (2.5-4.0) gm/dl Albumin/Globulin Ratio (0.9-2) Procalcitonin (0-0.5) ng/ml Urine Color Yellow Urine Appearance Turbid A (Clear) Urine pH >= 9.0 H (4.5-7.5) Ur Specific [place] 1.013 (1.000-1.030) Urine Protein 1+ H (Negative) Urine Glucose (UA) Negative (Negative) Urine Ketones Negative (Negative) Urine Blood 3+ H (Negative) Urine Nitrite Positive A (Negative) Urine Bilirubin Negative (Negative) Urine Urobilinogen Negative (Negative) Ur Leukocyte Esterase 3+ H (Negative) Urine WBC (Auto) >30 H (0-5) /hpf Urine RBC (Auto) >30 H (0-4) /hpf U Hyaline Cast (Auto) 1-5 (0-5) /lpf U Epithel Cells (Auto) >30 H (0-5) /lpf Urine Bacteria (Auto) 4+ H (Negative) Urine Crystals Triple Phosphate A (None Prsent) Triple Phos Crystals Present A (None Prsent) Urine Yeast Not Reportable Influenza Type A (PCR) Neg for Influ A (Neg) Influenza Type B (PCR) Neg for Influ B (Neg) 10/19/19 10/19/19 10/19/19 Range/Units 15:58 15:58 15:58 WBC 14.24 H (4.8-10.8) K/uL RBC 3.39 L (4.2-5.4) M/uL Hgb 9.9 L (12.0-16.0) g/dL POC Hgb (12.0-16.0) g/dl Hct 32.4 L (37-47) % POC Hct (37-47) % MCV 95.6 (80-100) fL MCH 29.2 (25-34) pg MCHC 30.6 L (32-36) g/dL RDW Std Deviation 55.0 H (36.4-46.3) fL RDW Coeff of Tamra 15.7 H (11.5-14.5) % Plt Count 228 (130-400) K/uL MPV 10.0 (7.4-10.4) fL Immature Gran % (Auto) 1.1 % Neut % (Auto) 87.5 % Lymph % (Auto) 6.6 % Carroll % (Auto) 3.7 % Eos % (Auto) 0.9 % Baso % (Auto) 0.2 % Immature Gran # (Auto) 0.16 H (0.00-0.02) K/uL Neut # (Auto) 12.46 H (1.4-6.5) K/uL Lymph # (Auto) 0.94 L (1.2-3.4) K/uL Carroll # (Auto) 0.52 (0.11-0.59) K/uL Eos # (Auto) 0.13 (0-0.5) K/uL Baso # (Auto) 0.03 (0-0.2) K/uL Absolute Nucleated RBC 0.03 H (0-0) K/uL Nucleated RBC % (auto) 0.2 % PT 10.3 (9.0-12.0) Seconds INR 1.0 (0.9-1.1) APTT 21.7 (21.0-31.0) Seconds PTT Ratio 0.8 VBG pH (7.36-7.41) VBG pCO2 (38-50) mmHg VBG pO2 mmHg VBG HCO3 mmol/L VBG O2 Saturation % VBG Base Excess mEq/L Barometric Pressure mm/Hg POC Sodium (135-144) mmol/L Sodium 135 L (136-145) mmol/L POC Potassium (3.3-5.0) mmol/L Potassium 5.9 H (3.5-5.1) mmol/L POC Chloride (101-112) mmol/L Chloride 98 (98-107) mmol/L Carbon Dioxide 33 H (21-32) mmol/L POC Total CO2 (24-31) mEq/l Anion Gap 4.0 (3-11) POC Anion Gap (16-25) mmol/L POC BUN (7-18) mg/dl BUN 97 H (7-18) mg/dl Creatinine 2.66 H (0.6-1.2) mg/dl POC Creatinine (0.6-1.3) mg/dl Est Cr Clr Drug Dosing 33.2 ml/min Est GFR ( Amer) 21.3 Est GFR (Non-Af Amer) 18.4 BUN/Creatinine Ratio 36.5 H (10-20) Glucose 89 (70-99) mg/dl POC Glucose (70-99) mg/dl POC Glucose (other) (70-99) mg/dl POC Lactic Acid Azael (0.90-1.70) mmol/L Lactate (0.4-2.0) mmol/L Calcium 10.7 H (8.5-10.1) mg/dl POC Ioniz Calcium Esau (1.12-1.32) mmol/l Magnesium 3.1 H (1.8-2.4) mg/dl Total Bilirubin 0.4 (0.2-1) mg/dl AST 12 L (15-37) U/L ALT 23 (12-78) U/L Alkaline Phosphatase 68 (45-117) U/L Troponin I < 0.015 (0-0.045) ng/ml Total Protein 6.8 (6.4-8.2) gm/dl Albumin 3.1 L (3.4-5.0) gm/dl Globulin 3.7 (2.5-4.0) gm/dl Albumin/Globulin Ratio 0.8 L (0.9-2) Procalcitonin (0-0.5) ng/ml Urine Color Urine Appearance (Clear) Urine pH (4.5-7.5) Ur Specific [place] (1.000-1.030) Urine Protein (Negative) Urine Glucose (UA) (Negative) Urine Ketones (Negative) Urine Blood (Negative) Urine Nitrite (Negative) Urine Bilirubin (Negative) Urine Urobilinogen (Negative) Ur Leukocyte Esterase (Negative) Urine WBC (Auto) (0-5) /hpf Urine RBC (Auto) (0-4) /hpf U Hyaline Cast (Auto) (0-5) /lpf U Epithel Cells (Auto) (0-5) /lpf Urine Bacteria (Auto) (Negative) Urine Crystals (None Prsent) Triple Phos Crystals (None Prsent) Urine Yeast Influenza Type A (PCR) (Neg) Influenza Type B (PCR) (Neg) 10/19/19 10/19/19 10/19/19 Range/Units 15:58 15:58 15:58 WBC (4.8-10.8) K/uL RBC (4.2-5.4) M/uL Hgb (12.0-16.0) g/dL POC Hgb (12.0-16.0) g/dl Hct (37-47) % POC Hct (37-47) % MCV (80-100) fL MCH (25-34) pg MCHC (32-36) g/dL RDW Std Deviation (36.4-46.3) fL RDW Coeff of Tamra (11.5-14.5) % Plt Count (130-400) K/uL MPV (7.4-10.4) fL Immature Gran % (Auto) % Neut % (Auto) % Lymph % (Auto) % Carroll % (Auto) % Eos % (Auto) % Baso % (Auto) % Immature Gran # (Auto) (0.00-0.02) K/uL Neut # (Auto) (1.4-6.5) K/uL Lymph # (Auto) (1.2-3.4) K/uL Carroll # (Auto) (0.11-0.59) K/uL Eos # (Auto) (0-0.5) K/uL Baso # (Auto) (0-0.2) K/uL Absolute Nucleated RBC (0-0) K/uL Nucleated RBC % (auto) % PT (9.0-12.0) Seconds INR (0.9-1.1) APTT (21.0-31.0) Seconds PTT Ratio VBG pH 7.37 (7.36-7.41) VBG pCO2 62 H (38-50) mmHg VBG pO2 40 mmHg VBG HCO3 35 mmol/L VBG O2 Saturation 68.1 % VBG Base Excess 8.0 mEq/L Barometric Pressure 727.9 mm/Hg POC Sodium (135-144) mmol/L Sodium (136-145) mmol/L POC Potassium (3.3-5.0) mmol/L Potassium (3.5-5.1) mmol/L POC Chloride (101-112) mmol/L Chloride (98-107) mmol/L Carbon Dioxide (21-32) mmol/L POC Total CO2 (24-31) mEq/l Anion Gap (3-11) POC Anion Gap (16-25) mmol/L POC BUN (7-18) mg/dl BUN (7-18) mg/dl Creatinine (0.6-1.2) mg/dl POC Creatinine (0.6-1.3) mg/dl Est Cr Clr Drug Dosing ml/min Est GFR ( Amer) Est GFR (Non-Af Amer) BUN/Creatinine Ratio (10-20) Glucose (70-99) mg/dl POC Glucose (70-99) mg/dl POC Glucose (other) (70-99) mg/dl POC Lactic Acid Azael (0.90-1.70) mmol/L Lactate 1.0 (0.4-2.0) mmol/L Calcium (8.5-10.1) mg/dl POC Ioniz Calcium Esau (1.12-1.32) mmol/l Magnesium (1.8-2.4) mg/dl Total Bilirubin (0.2-1) mg/dl AST (15-37) U/L ALT (12-78) U/L Alkaline Phosphatase (45-117) U/L Troponin I (0-0.045) ng/ml Total Protein (6.4-8.2) gm/dl Albumin (3.4-5.0) gm/dl Globulin (2.5-4.0) gm/dl Albumin/Globulin Ratio (0.9-2) Procalcitonin 0.21 (0-0.5) ng/ml Urine Color Urine Appearance (Clear) Urine pH (4.5-7.5) Ur Specific [place] (1.000-1.030) Urine Protein (Negative) Urine Glucose (UA) (Negative) Urine Ketones (Negative) Urine Blood (Negative) Urine Nitrite (Negative) Urine Bilirubin (Negative) Urine Urobilinogen (Negative) Ur Leukocyte Esterase (Negative) Urine WBC (Auto) (0-5) /hpf Urine RBC (Auto) (0-4) /hpf U Hyaline Cast (Auto) (0-5) /lpf U Epithel Cells (Auto) (0-5) /lpf Urine Bacteria (Auto) (Negative) Urine Crystals (None Prsent) Triple Phos Crystals (None Prsent) Urine Yeast Influenza Type A (PCR) (Neg) Influenza Type B (PCR) (Neg) 10/19/19 10/19/19 10/19/19 Range/Units 16:00 16:04 18:11 WBC (4.8-10.8) K/uL RBC (4.2-5.4) M/uL Hgb (12.0-16.0) g/dL POC Hgb 10.2 L (12.0-16.0) g/dl Hct (37-47) % POC Hct 30 L (37-47) % MCV (80-100) fL MCH (25-34) pg MCHC (32-36) g/dL RDW Std Deviation (36.4-46.3) fL RDW Coeff of Tamra (11.5-14.5) % Plt Count (130-400) K/uL MPV (7.4-10.4) fL Immature Gran % (Auto) % Neut % (Auto) % Lymph % (Auto) % Carroll % (Auto) % Eos % (Auto) % Baso % (Auto) % Immature Gran # (Auto) (0.00-0.02) K/uL Neut # (Auto) (1.4-6.5) K/uL Lymph # (Auto) (1.2-3.4) K/uL Carroll # (Auto) (0.11-0.59) K/uL Eos # (Auto) (0-0.5) K/uL Baso # (Auto) (0-0.2) K/uL Absolute Nucleated RBC (0-0) K/uL Nucleated RBC % (auto) % PT (9.0-12.0) Seconds INR (0.9-1.1) APTT (21.0-31.0) Seconds PTT Ratio VBG pH (7.36-7.41) VBG pCO2 (38-50) mmHg VBG pO2 mmHg VBG HCO3 mmol/L VBG O2 Saturation % VBG Base Excess mEq/L Barometric Pressure mm/Hg POC Sodium 134 L (135-144) mmol/L Sodium 138 (136-145) mmol/L POC Potassium 6.0 H (3.3-5.0) mmol/L Potassium 5.6 H (3.5-5.1) mmol/L POC Chloride 95 L (101-112) mmol/L Chloride 100 (98-107) mmol/L Carbon Dioxide 35 H (21-32) mmol/L POC Total CO2 35 H (24-31) mEq/l Anion Gap 3.0 (3-11) POC Anion Gap 11.0 L (16-25) mmol/L POC BUN 109 H* (7-18) mg/dl BUN 89 H (7-18) mg/dl Creatinine 2.47 H (0.6-1.2) mg/dl POC Creatinine 2.8 H (0.6-1.3) mg/dl Est Cr Clr Drug Dosing 35.8 ml/min Est GFR ( Amer) 23.3 Est GFR (Non-Af Amer) 20.1 BUN/Creatinine Ratio 36.1 H (10-20) Glucose 101 H (70-99) mg/dl POC Glucose (70-99) mg/dl POC Glucose (other) 89 (70-99) mg/dl POC Lactic Acid Azael 0.86 L (0.90-1.70) mmol/L Lactate (0.4-2.0) mmol/L Calcium 10.8 H (8.5-10.1) mg/dl POC Ioniz Calcium Esau 1.32 (1.12-1.32) mmol/l Magnesium (1.8-2.4) mg/dl Total Bilirubin (0.2-1) mg/dl AST (15-37) U/L ALT (12-78) U/L Alkaline Phosphatase (45-117) U/L Troponin I (0-0.045) ng/ml Total Protein (6.4-8.2) gm/dl Albumin (3.4-5.0) gm/dl Globulin (2.5-4.0) gm/dl Albumin/Globulin Ratio (0.9-2) Procalcitonin (0-0.5) ng/ml Urine Color Urine Appearance (Clear) Urine pH (4.5-7.5) Ur Specific [place] (1.000-1.030) Urine Protein (Negative) Urine Glucose (UA) (Negative) Urine Ketones (Negative) Urine Blood (Negative) Urine Nitrite (Negative) Urine Bilirubin (Negative) Urine Urobilinogen (Negative) Ur Leukocyte Esterase (Negative) Urine WBC (Auto) (0-5) /hpf Urine RBC (Auto) (0-4) /hpf U Hyaline Cast (Auto) (0-5) /lpf U Epithel Cells (Auto) (0-5) /lpf Urine Bacteria (Auto) (Negative) Urine Crystals (None Prsent) Triple Phos Crystals (None Prsent) Urine Yeast Influenza Type A (PCR) (Neg) Influenza Type B (PCR) (Neg) 10/19/19 Range/Units 18:16 WBC (4.8-10.8) K/uL RBC (4.2-5.4) M/uL Hgb (12.0-16.0) g/dL POC Hgb 9.9 L (12.0-16.0) g/dl Hct (37-47) % POC Hct 29 L (37-47) % MCV (80-100) fL MCH (25-34) pg MCHC (32-36) g/dL RDW Std Deviation (36.4-46.3) fL RDW Coeff of Tamra (11.5-14.5) % Plt Count (130-400) K/uL MPV (7.4-10.4) fL Immature Gran % (Auto) % Neut % (Auto) % Lymph % (Auto) % [place] % (Auto) % Eos % (Auto) % Baso % (Auto) % Immature Gran # (Auto) (0.00-0.02) K/uL Neut # (Auto) (1.4-6.5) K/uL Lymph # (Auto) (1.2-3.4) K/uL Carroll # (Auto) (0.11-0.59) K/uL Eos # (Auto) (0-0.5) K/uL Baso # (Auto) (0-0.2) K/uL Absolute Nucleated RBC (0-0) K/uL Nucleated RBC % (auto) % PT (9.0-12.0) Seconds INR (0.9-1.1) APTT (21.0-31.0) Seconds PTT Ratio VBG pH (7.36-7.41) VBG pCO2 (38-50) mmHg VBG pO2 mmHg VBG HCO3 mmol/L VBG O2 Saturation % VBG Base Excess mEq/L Barometric Pressure mm/Hg POC Sodium 136 (135-144) mmol/L Sodium (136-145) mmol/L POC Potassium 5.5 H (3.3-5.0) mmol/L Potassium (3.5-5.1) mmol/L POC Chloride 96 L (101-112) mmol/L Chloride (98-107) mmol/L Carbon Dioxide (21-32) mmol/L POC Total CO2 35 H (24-31) mEq/l Anion Gap (3-11) POC Anion Gap 11.0 L (16-25) mmol/L POC BUN 103 H* (7-18) mg/dl BUN (7-18) mg/dl Creatinine (0.6-1.2) mg/dl POC Creatinine 2.8 H (0.6-1.3) mg/dl Est Cr Clr Drug Dosing ml/min Est GFR ( Amer) Est GFR (Non-Af Amer) BUN/Creatinine Ratio (10-20) Glucose (70-99) mg/dl POC Glucose (70-99) mg/dl POC Glucose (other) 98 (70-99) mg/dl POC Lactic Acid Azael (0.90-1.70) mmol/L Lactate (0.4-2.0) mmol/L Calcium (8.5-10.1) mg/dl POC Ioniz Calcium Esau 1.34 H (1.12-1.32) mmol/l Magnesium (1.8-2.4) mg/dl Total Bilirubin (0.2-1) mg/dl AST (15-37) U/L ALT (12-78) U/L Alkaline Phosphatase (45-117) U/L Troponin I (0-0.045) ng/ml Total Protein (6.4-8.2) gm/dl Albumin (3.4-5.0) gm/dl Globulin (2.5-4.0) gm/dl Albumin/Globulin Ratio (0.9-2) Procalcitonin (0-0.5) ng/ml Urine Color Urine Appearance (Clear) Urine pH (4.5-7.5) Ur Specific [place] (1.000-1.030) Urine Protein (Negative) Urine Glucose (UA) (Negative) Urine Ketones (Negative) Urine Blood (Negative) Urine Nitrite (Negative) Urine Bilirubin (Negative) Urine Urobilinogen (Negative) Ur Leukocyte Esterase (Negative) Urine WBC (Auto) (0-5) /hpf Urine RBC (Auto) (0-4) /hpf U Hyaline Cast (Auto) (0-5) /lpf U Epithel Cells (Auto) (0-5) /lpf Urine Bacteria (Auto) (Negative) Urine Crystals (None Prsent) Triple Phos Crystals (None Prsent) Urine Yeast Influenza Type A (PCR) (Neg) Influenza Type B (PCR) (Neg) ECG Data Additional Comments: EKG shows sinus rhythm with rate of 76. GA QRS and QTc intervals within normal limits. No ST elevation. There is T wave inversion in lead aVL V2. These are new from the EKG done on September 11, 2019. Peak T wave s are present in leads II, aVF, V4, V5 V6. [facility] Narrative 1521: The patient was evaluated in room A3. A complete history and physical exam was performed. EMR reviewed. Patient has a history of sepsis, acute renal failure, morbid obesity, chronic indwelling Garcia catheter, and is bedbound due to her obesity. Patient was seen in the emergency department September 11, 2019 at which time she was admitted for acute renal failure she had a potassium of 7.1 and creatinine of 4.5. The patient was subsequently transferred to [facility] on September 12, 2019 for emergent dialysis. Cardiac monitoring: An order was placed for continuous cardiac monitoring. The monitor shows a rate of 90 with sinus rhythm. Peak T waves present on the monitor car operator. EKG shows sinus rhythm with rate of 76. GA QRS and QTc intervals within normal limits. No ST elevation. There is T wave inversion in lead aVL V2. These are new from the EKG done on September 11, 2019. Peak T waves are present in leads II, aVF, V4, V5 V6. Given this the patient was treated with calcium gluconate 1 g IV prior to knowing the results of her labs for most likely hyperkalemia. 1603: Vital signs stable. POC i-STAT shows potassium of 6 and creatinine of 2.8. Glucose 105. In addition to the calcium gluconate that was already ordered the patient will be given 1 amp of D50, 10 units of insulin, and Kayexalate 30 g. We will hold off on giving sodium bicarb until we see the steve ortizvinnie's blood gas that is been ordered. We will plan on admitting the patient. 1618: Vital signs stable. POC lactic acid less than 2. EMR reviewed. Patient had a urine culture on March 09, 2019 which grew out Klebsiella and urine culture on November 15, 2018 which grew out Pseudomonas. Both were sensitive to cefepime. Patient does have a leukocytosis of 14.2. The rest of the lab work including formal renal profile and lactic acid are pending. Given the leukocytosis and the urine from her catheter appearing infected grossly the patient will be treated with cefepime IV piggyback. Nursing did call and inform me that the patient's catheter does not appear to be placed properly and urine is leaking from around the catheter. Nursing was instructed to change the catheter. 165: Vital signs stable. Sodium 135. Potassium 5.9. BUN 97 and creatinine 2.66. Lactic acid within normal limits. Discussed with nephrology Dr. Mcgraw who states that there is no dialysis available at this time at this facility. She states she would like to see if the potassium is coming down before we decid e if we are going to admit the patient to this facility or transfer to another facility. She states to repeat the potassium in the next half hour. Patient also be given [address] of the abdomen will also be ordered. Dr. Mcgraw states to call her back at [phone] with the results of the potassium to help determine if the patient can stay at [facility] [address]. 1845: Vital signs stable. Patient's repeat labs status post calcium gluconate, insulin, nebulized albuterol show a potassium 5.6, BUN of 89, and a creatinine of 2.47. Spoke with Dr. Mcgraw states to call her back at [phone] who states that the patient can be admitted to the hospitalist service and she and her partner will be on consult. Spoke with Dr. Andino about any hospitalist who agreed to the admission. Patient was supposed get a CT of her abdomen however she refused it saying she will not fit in the CT scanner, thus we will obtain an ultrasound of her kidneys. Impression & Plan Acute hyperkalemia, HOLLY (acute kidney injury), Acute UTI, Morbid obesity with BMI of 50.0-59.9, adult Discharge Plan Visit Data Chief Complaint: Urinary Symptoms Stated Complaint: URINARY SX, WEAKNESS, ED Provider: Loy Huang Discharge Problem: Acute hyperkalemia, HOLLY (acute kidney injury), Acute UTI, Morbid obesity with BMI of 50.0-59.9, adult Patient Disposition: Admitted As Inpatient Forms Stand Alone Forms: My [facility] Prescriptions Prescriptions: No Action insulin regular hum U-500 conc [Humulin R U-500 (Conc) Insulin] 500 unit/mL solution See Rx Instructions .ROUTE .COMPLEX Qty: 20 RF: 2 multivitamin [One Daily Multivitamin] Tablet 1 tab PO QAM RF: 0 levothyroxine 88 mcg tablet 88 mcg PO QAM RF: 0 omeprazole 20 mg capsule,delayed release(DR/EC) 20 mg PO QAM RF: 0 zinc 50 mg Tablet 50 mg PO DAILY@1200 RF: 0 bumetanide 1 mg tablet 1 mg PO BID RF: 0 furosemide [Lasix] 40 mg Tablet 40 mg PO BID RF: 0 nitrofurantoin macrocrystal 50 mg Capsule 50 mg PO HS RF: 0 metformin 850 mg Tablet 850 mg PO TID RF: 0 carvedilol 3.125 mg Tablet 3.125 mg PO BID RF: 0 docusate sodium 100 mg Capsule 100 mg PO BID RF: 0 nystatin 100,000 unit/gram Powder 1 applic TOPICAL BID RF: 0 Spiriva with HandiHaler 18 mcg Capsule, W/Inhalation Device 1 cap INHALATION QAM RF: 0 oxycodone 20 mg Tablet 20 mg PO QID RF: 0 cholecalciferol (vitamin D3) [Vitamin D3] 5,000 unit Tablet 5,000 unit PO WE RF: 0 cyanocobalamin (vitamin B-12) 1,000 mcg/mL Kit 1,000 mcg IM Q30D RF: 0 gabapentin 300 mg Capsule 300 mg PO TID Qty: 90 RF: 0 magnesium oxide 400 mg magnesium Capsule 400 mg PO DAILY@1200 RF: 0 ferrous sulfate 325 mg (65 mg iron) tablet 325 mg PO DAILY@1200 RF: 0 cranberry 450 mg Tablet 450 mg PO DAILY@1200 RF: 0 omega 5-kjb-eqh-fish oil [Fish Oil] 1,000 mg (120 mg-180 mg) Capsule 1 cap PO HS RF: 0 Cystex Plus (methenamine-vinh) 162-162.5 mg Tablet 2 tab PO DAILY PRN (Reason: UTI Relief) RF: 0 fluticasone propion-salmeterol [Wixela Inhub] 250-50 mcg/dose blister with device 1 inh inhalation BID RF: 0 lisinopril 5 mg tablet 5 mg PO DAILY@1200 RF: 0 Referrals Referrals: Robbie Yeh [Primary Care Provider] -
[2019-10-19] MEDS ORDERED: SODIUM CHLORIDE 0.9% 1000ML 1,000 ML IV ONE (15:30)
[2019-10-19] MEDS ORDERED: CALCIUM GLUCONATE 10% 1,000 MG in SODIUM CHLORIDE 0.9% 50 ML IV STA (15:36)
[2019-10-19] MEDS ORDERED: INSULIN HUMAN REGULAR PER UNIT 10 UNITS in SYRINGE 9.9 ML IV STA (16:01)
[2019-10-19] MEDS ORDERED: DEXTROSE 50% 50 ML SYRINGE IV STA (16:01)
[2019-10-19] MEDS ORDERED: SODIUM POLYSTYRENE SULFONATE 15G/60ML SUSP PO STA (16:01)
[2019-10-19 16:08] LABS: Basophils # (auto) 0.03 K/uL (0-0.2); Basophils % (auto) 0.2 %; Eosinophils # (auto) 0.13 K/uL (0-0.5); Eosinophils % (auto) 0.9 %; Hematocrit (blood only) 32.4 % (37-47); Hemoglobin 9.9 g/dL (12.0-16.0); Immature Granulocytes # (auto) 0.16 K/uL (0.00-0.02); Immature Granulocytes % (auto) 1.1 %; Lymphocytes # (auto) 0.94 K/uL (1.2-3.4); Lymphocytes % (auto) 6.6 %; Mean Corpuscular Hemoglobin 29.2 pg (25-34); Mean Corpuscular Hgb Conc 30.6 g/dL (32-36); Mean Corpuscular Volume 95.6 fL (80-100); Monocytes # (auto) 0.52 K/uL (0.11-0.59); Monocytes % (auto) 3.7 %; Neutrophils # (auto) 12.46 K/uL (1.4-6.5); Neutrophils % (auto) 87.5 %; Nucleated RBC # (auto) 0.03 K/uL (0-0); Nucleated RBC % (auto) 0.2 %; Platelet Count 228 K/uL (130-400); RDW Coefficient of Variation 15.7 % (11.5-14.5); Red Blood Count 3.39 M/uL (4.2-5.4); White Blood Count 14.24 K/uL (4.8-10.8)
[2019-10-19 16:08] LABS: Appearance Urine Turbid (Clear); Bacteria Urine Automated 4+ (Negative); Bilirubin Urine Negative (Negative); Blood Urine 3+ (Negative); Color Urine Yellow; Epithelial Cell Urine Auto >30 /lpf (0-5); Glucose Urine UA Negative (Negative); Ketones Urine Negative (Negative); Leukocyte Esterase Urine 3+ (Negative); Nitrite Urine Positive (Negative); Specific Gravity Urine 1.013 (1.000-1.030); Urobilinogen Urine Negative (Negative); WBC Urine Automated >30 /hpf (0-5); pH Urine >= 9.0 (4.5-7.5)
[2019-10-19 16:09] LABS: Protein Urine 1+ (Negative)
[2019-10-19 16:10] LABS: Oxygen Saturation VBG 68.1 %; pH VBG 7.37 (7.36-7.41)
[2019-10-19] MEDS ORDERED: NovoLIN-R INSULIN PER UNIT CHARGE ONE (16:12)
[2019-10-19 16:16] LABS: Sulfosalicylic Acid Urine Positive (Negative)
[2019-10-19 16:16] LABS: iSTAT Creatinine 2.8 mg/dl (0.6-1.3); iSTAT Hemoglobin 10.2 g/dl (12.0-16.0); iSTAT Ionized Calcium 1.32 mmol/l (1.12-1.32)
[2019-10-19] MEDS ORDERED: CEFEPIME 2,000 MG/20 ML VIAL IV STA (16:17)
[2019-10-19 16:19] LABS: Partial Thromboplastin Ratio 0.8; Partial Thromboplastin Time 21.7 Seconds (21.0-31.0); Prothrombin Time 10.3 Seconds (9.0-12.0)
[2019-10-19 16:23] LABS: RBC Urine Automated >30 /hpf (0-4); Triple Phosphate Crystal Urine Present (None Prsent)
--- NOTE | 2019-10-19 16:23 | XRay Report ---
XR chest 1V portable CLINICAL HISTORY: SEPSIS dyspnea COMPARISON STUDY: 03/09/2018 FINDINGS: Moderate stable cardiomegaly. Bilateral platelike atelectasis. No acute infiltrate. Diaphra gms are smooth. IMPRESSION: Moderate cardiomegaly. No acute infiltrate. ACT 112: Negative or not required by law. The above report was generated using voice recognition software. It may contain grammatical, syntax or spelling errors. Electronically signed by: Anil Monae M.D. 10/19/2019 4:21 PM
[2019-10-19 16:26] LABS: Alanine Aminotransferase 23 U/L (12-78); Albumin Level 3.1 gm/dl (3.4-5.0); Aspartate Aminotransferase 12 U/L (15-37); BUN Creatinine Ratio 36.5 (10-20); Blood Urea Nitrogen 97 mg/dl (7-18); Calcium 10.7 mg/dl (8.5-10.1); Carbon Dioxide 33 mmol/L (21-32); Creatinine Clr Calc Pharmacy 33.2 ml/min; Est GFR (African American) 21.3; Est GFR (Non-African American) 18.4; Glucose 89 mg/dl (70-99); Magnesium 3.1 mg/dl (1.8-2.4)
[2019-10-19 16:37] LABS: Albumin Globulin Ratio 0.8 (0.9-2); Alkaline Phosphatase 68 U/L (45-117); Bilirubin,Total 0.4 mg/dl (0.2-1); Chloride 98 mmol/L (98-107); Globulin 3.7 gm/dl (2.5-4.0); Potassium 5.9 mmol/L (3.5-5.1); Sodium 135 mmol/L (136-145); Total Protein 6.8 gm/dl (6.4-8.2); Troponin I < 0.015 ng/ml (0-0.045)
[2019-10-19 16:50] LABS: Influenza A virus by PCR Neg for Influ A (Neg); Influenza B virus by PCR Neg for Influ B (Neg)
[2019-10-19] MEDS ORDERED: ALBUTEROL 0.5% NEB SOLN 2.5 MG/0.5 ML VIAL NEB STA (16:51)
[2019-10-19] MEDS ORDERED: SODIUM CHLORIDE 0.9% 1000ML 1,000 ML IV SCH (17:15)
[2019-10-19 18:28] LABS: iSTAT Creatinine 2.8 mg/dl (0.6-1.3); iSTAT Hemoglobin 9.9 g/dl (12.0-16.0); iSTAT Ionized Calcium 1.34 mmol/l (1.12-1.32); iSTAT Potassium 5.5 mmol/L (3.3-5.0)
[2019-10-19 18:37] LABS: BUN Creatinine Ratio 36.1 (10-20); Calcium 10.8 mg/dl (8.5-10.1); Creatinine Clr Calc Pharmacy 35.8 ml/min; Est GFR (African American) 23.3; Est GFR (Non-African American) 20.1; Potassium 5.6 mmol/L (3.5-5.1)
--- NOTE | 2019-10-19 19:46 | Ultrasound Report ---
RENAL ULTRASOUND HISTORY: Acute kidney injury. COMPARISON: Renal ultrasound 09/11/2019. FINDINGS: Right kidney: 12.1 cm. No hydronephrosis. Normal corticomedullary differentiation. Mild cortical thin moira. Left kidney: 11.7 cm. No hydronephrosis. Normal corticomedullary differentiation. Mild cortical thinn ing. Bladder: Bladder is decompressed by Garcia catheter and therefore not well visualized. IMPRESSION: No hydronephrosis. ACT 112: Negative or not required by law. Electronically signed by: Willy Gaffney M.D. 10/19/2019 7:45 PM
--- NOTE | 2019-10-19 19:55 | History & Physical Report ---
Date of Service October 19, 2019 Assessment & Plan (1) Acute renal failure: 64yo C female with multiple medical problems to include HTN/HLP/DM/NAFLD/morbid obesity, previous admission for HOLLY requiring emergent HD x 3 sessions in August 2019. She presents with HOLLY. BUN= 97 on arrival which has improved to 89, Cr=2.66 on arrival which has improved to 2.47 (progressive decline in renal function since February 2019). K= 5.9 --> 5.6, no EKG changes of hyperkalemia. Patient administered Albu terol/Insulin/D50/Kayexelate in the ER. HCO3= 35 and pH on VBG=7.37. Patient with Garcia repositioned, now draining clear, yellow urine. Renal US unremarkable. Multifactorial - most likely some underlying CKD, history of DM/HTN/HLP, prior need for HD. ?HOLLY in setting of malfunctioning Garcia/dehydration/UTI, medication effects of Lisinopril/diuretic No need for emergent HD at this time -Admit to medical floor with telemetry monitoring -Maintain Garcia catheter, monitor I/Os -BMP q 12 hours -Check PO4 x 1 -Check urine urea, Na, eosinophils and total CK -Avoid nephrotoxic agents -Renal dosing to all medications where needed -Consider Nephrology consultation in AM. Patient has a telemedicine appointment with Nephrology scheduled for October 23 Present on Admission?: Yes (2) Hyperkalemia: K=5.9 --> 5.6 in setting of HOLLY, VANIA-inhibitor use. Was administered medical treatment for hyperkalemia, kayexelate -Telemetry monitoring -Maintain Garcia -BMP q 12 hours Present on Admission?: Yes (3) Acute UTI: +UA. Patient with leukocytosis, WBC=14.24. Afebrile, HD stable. Prior urine with Klebsiella pneumoniae, molina-sensitive Pseudomonas -Cefepime 1gm IV daily -Follow urine culture Present on Admission?: Yes (4) Hypothyroid: Chronic -Continue Synthroid Present on Admission?: Yes (5) Chronic pain syndrome: Chronic -Continue Oxycodone -Decrease gabapentin to 100mg po TID Present on Admission?: Yes (6) Morbid obesity: Noted. -Encourage lifestyle modification -Consider PT/OT evaluation - patient reports being immobile due to her size Present on Admission?: Yes (7) Chronic indwelling Garcia catheter: Replaced in ER. Now draining clear, yellow urine -Monitor I/Os -Garcia care q shift Present on Admission?: Yes (8) Chronic respiratory failure with hypoxia and hypercapnia: Patient with adequate oxygenation on NC. No respiratory distress -Continue to monitor Present on Admission?: Yes (9) Hypertension: Blood pressure stable. -Continue Carvedilol -Hold Lisinopril, Bumex, Lasix in setting of HOLLY Present on Admission?: Yes (10) COPD (chronic obstructive pulmonary disease): Stable. No SOB/Cough/Wheeze -Continue Spiriva, Fluticasone/Salmeterol Present on Admission?: Yes (11) ZACKARY (obstructive sleep apnea): Patient unable to tolerate CPAP -Continue supplemental O2 qHS Present on Admission?: Yes (12) DM II (diabetes mellitus, type II), controlled: Chronic -Continue insulin pump -Hold metformin Present on Admission?: Yes (13) NAFLD (nonalcoholic fatty liver disease): Noted Skin breakdown - Continue Zinc, Nystatin, Wound Care BID. -Consider wound care consultation F/E/N - NSS at 125mL/hr x 2 liters, monitor BMP BID for renal function and K, CC diet as tolerated Ppx - Heparin TID Code -Full per discussion with patient Dispo - Admit to medical floor with telemetry monitoring Present on Admission?: Yes Admission and Anticipated Discharge Date Admission Date: 10/19/19 Anticipated date of discharge: 10/21/19 History of Present Illness Chief Complaint: Lethargy, Garcia not working Primary Care Provider: Robbie Ayoub is a 64yo C female with multiple medical comorbidities to include DM/HTN/HLP/NAFL/COPD and morbid obesity. She was recently admitted to [facility] on 09/11/19 with acute renal failure, AMS. She was subsequently transferred to [facility] for emergent dialysis. She reports receiving 3 HD treatments at that time. She was discharged home in stable condition and instructed to followup with a Rack Washer - Telemedicine appointment scheduled for October 23 with Porfirio Betancourt. She presents today with complaint of lethargy and malfunctioning Garcia catheter. She reports decreased UOP from her indwelling Garcia for the last few days and no output today. She also reports increase in myoclonic jerking. She denies CP/palpitations/SOB/nausea/vomiting/diarrhea or constipation. She has been eating and drinking well, taking her medications as prescribed. ER staff reports leaking around the Garcia when patient arrived. Garcia replaced without difficulty No recent travel. No sick contacts. No respiratory complaints or fever. No concern for Covid-19 ER Course: Albuterol 10mL neb, Calcium gluconate 1gm, Insulin 10u/Dextrose 1 amp, Kayexelate 30gm, Cefepime 2gm, NSS x 1L bolus then 125mL/hr Garcia catheter replaced in ER Allergies Allergy/AdvReac Type Severity Reaction Status Date / Time cephalexin [From Keflex] Allergy Mild Rash Unverified 10/19/19 17:07 Home Medications Home Medications Medication Instructions Recorded Confirmed Type Spiriva with HandiHaler 1 cap INHALATION QAM 11/15/18 10/19/19 History carvedilol 3.125 mg PO BID 11/15/18 10/19/19 History cholecalciferol (vitamin D3) 5,000 unit PO WE 11/15/18 10/19/19 History [Vitamin D3] cyanocobalamin (vitamin B-12) 1,000 mcg IM Q30D 11/15/18 10/19/19 History docusate sodium 100 mg PO BID 11/15/18 10/19/19 History furosemide [Lasix] 40 mg PO BID 11/15/18 10/19/19 History metformin 850 mg PO TID 11/15/18 10/19/19 History nitrofurantoin macrocrystal 50 mg PO HS 11/15/18 10/19/19 History nystatin 1 applic TOPICAL BID 11/15/18 10/19/19 History oxycodone 20 mg PO QID 11/15/18 10/19/19 History gabapentin 300 mg PO TID #90 cap 11/19/18 10/19/19 Rx Cystex Plus (methenamine-vinh) 2 tab PO DAILY PRN 03/09/19 10/19/19 History cranberry 450 mg PO DAILY@1200 03/09/19 10/19/19 History ferrous sulfate 325 mg PO DAILY@1200 03/09/19 10/19/19 History fluticasone propion-salmeterol 1 inh INHALATION BID 03/09/19 10/19/19 History [Wixela Inhub] lisinopril 5 mg PO DAILY@1200 03/09/19 10/19/19 History magnesium oxide 400 mg PO DAILY@1200 03/09/19 10/19/19 History omega 4-hjg-cvk-fish oil [Fish Oil] 1 cap PO HS 03/09/19 10/19/19 History insulin regular hum U-500 conc 500 See Rx Instructions .ROUTE 04/23/19 10/19/19 Rx unit/mL subcutaneous soln .COMPLEX #20 milliliter levothyroxine 88 mcg PO QAM 09/11/19 10/19/19 History multivitamin [One Daily 1 tab PO QAM 09/11/19 10/19/19 History Multivitamin] omeprazole 20 mg PO QAM 09/11/19 10/19/19 History zinc 50 mg PO DAILY@1200 09/11/19 10/19/19 History bumetanide 1 mg PO BID 10/19/19 10/19/19 History Past Med/Surg History Medical History 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 No problems noted. Social History Preferred Language: Andorran Communication Ability: Effective Post Splitter Required: No Beliefs That Will Affect Care: None marital status: marital status details: Current Living Situation: Spouse and Family Current Living Situation Comment: Lives with and daughter. 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 Feels Safe at Home: Yes Smoking Status: Former smoker Tobacco Type: cigarettes ; packs per day: 1 ; Second Hand Exposure: No ; Hx Alcohol Use: No Hx Substance Use: No Review of Systems Review of Systems: All systems reviewed & are unremarkable except as noted in HPI & below +jerking +fatigue +chronic pain Physical Exam Physical Exam: General: morbidly obese female patient resting comfortably, NAD, non-toxic in appearance, AA&O x 4 Skin: warm, dry, +intertriginous yeast, +skin breakdown on gluteus HEENT: NC/AT, PERRL, EOMI, anicteric sclera, conjunctiva without injection, external ear normal to inspection and nontender, nares patent, slightly dry mucus membranes, dentition intact, no oropharyngeal lesions, neck supple, trachea midline, no LAD, no thyromegaly, no JVD Heart: +S1/S2, regular, no m/r/g Lungs: equal air entry bilaterally, diminished in bases, no rales/rhonchi/wheezes Abd: +BS, soft, NT/ND, no masses/organomegaly/ascites Ext: warm, 2+ pulses in UE/LE bilaterally, no clubbing/cyanosis or edema, LLE wound with dressing in place, Garcia in place with 650mL clear yellow urine in the bag Neuro: nonfocal, patient AA&O x 4, speech intact, no facial droop, moving all extremities on command with equal strength 5/5, +myoclonic jerking Results & Data Results & Data ([facility]) Vital Signs (Past 12 Hours) Vital Signs Temp Pulse Pulse Resp BP BP Pulse Ox 10/19/19 18:30 82 99 10/19/19 18:00 78 22 102/55 L 100 10/19/19 17:40 115/72 10/19/19 17:30 78 21 95 10/19/19 17:16 81 22 100 10/19/19 17:00 85 10/19/19 16:40 87 20 93/53 L 100 10/19/19 16:32 78 23 98 10/19/19 16:30 80 99 10/19/19 16:00 74 23 116/55 L 100 10/19/19 15:35 36.9 C 80 20 102/58 L 99 10/19/19 15:32 72 19 99 10/19/19 15:31 75 98/77 L 99 10/19/19 15:30 76 22 99 10/19/19 15:27 78 19 100 10/19/19 15:24 74 22 102/58 L 99 Laboratory Results Lab Results 10/19/19 10/19/19 10/19/19 Range/Units 15:43 15:54 15:55 WBC (4.8-10.8) K/uL RBC (4.2-5.4) M/uL Hgb (12.0-16.0) g/dL POC Hgb (12.0-16.0) g/dl Hct (37-47) % POC Hct (37-47) % MCV (80-100) fL MCH (25-34) pg MCHC (32-36) g/dL RDW Std Deviation (36.4-46.3) fL RDW Coeff of Tamra (11.5-14.5) % Plt Count (130-400) K/uL MPV (7.4-10.4) fL Immature Gran % (Auto) % Neut % (Auto) % Lymph % (Auto) % Ramsey % (Auto) % Eos % (Auto) % Baso % (Auto) % Immature Gran # (Auto) (0.00-0.02) K/uL Neut # (Auto) (1.4-6.5) K/uL Lymph # (Auto) (1.2-3.4) K/uL Ramsey # (Auto) (0.11-0.59) K/uL Eos # (Auto) (0-0.5) K/uL Baso # (Auto) (0-0.2) K/uL Absolute Nucleated RBC (0-0) K/uL Nucleated RBC % (auto) % PT (9.0-12.0) Seconds INR (0.9-1.1) APTT (21.0-31.0) Seconds PTT Ratio VBG pH (7.36-7.41) VBG pCO2 (38-50) mmHg VBG pO2 mmHg VBG HCO3 mmol/L VBG O2 Saturation % VBG Base Excess mEq/L Barometric Pressure mm/Hg POC Sodium (135-144) mmol/L Sodium (136-145) mmol/L POC Potassium (3.3-5.0) mmol/L Potassium (3.5-5.1) mmol/L POC Chloride (101-112) mmol/L Chloride (98-107) mmol/L Carbon Dioxide (21-32) mmol/L POC Total CO2 (24-31) mEq/l Anion Gap (3-11) POC Anion Gap (16-25) mmol/L POC BUN (7-18) mg/dl BUN (7-18) mg/dl Creatinine (0.6-1.2) mg/dl POC Creatinine (0.6-1.3) mg/dl Est Cr Clr Drug Dosing ml/min Est GFR ( Amer) Est GFR (Non-Af Amer) BUN/Creatinine Ratio (10-20) Glucose (70-99) mg/dl POC Glucose 105 H (70-99) mg/dl POC Glucose (other) (70-99) mg/dl POC Lactic Acid Azael (0.90-1.70) mmol/L Lactate (0.4-2.0) mmol/L Calcium (8.5-10.1) mg/dl POC Ioniz Calcium Esau (1.12-1.32) mmol/l Magnesium (1.8-2.4) mg/dl Total Bilirubin (0.2-1) mg/dl AST (15-37) U/L ALT (12-78) U/L Alkaline Phosphatase (45-117) U/L Troponin I (0-0.045) ng/ml Total Protein (6.4-8.2) gm/dl Albumin (3.4-5.0) gm/dl Globulin (2.5-4.0) gm/dl Albumin/Globulin Ratio (0.9-2) Procalcitonin (0-0.5) ng/ml Urine Color Yellow Urine Appearance Turbid A (Clear) Urine pH >= 9.0 H (4.5-7.5) Ur Specific Rosewood 1.013 (1.000-1.030) Urine Protein 1+ H (Negative) Urine Glucose (UA) Negative (Negative) Urine Ketones Negative (Negative) Urine Blood 3+ H (Negative) Urine Nitrite Positive A (Negative) Urine Bilirubin Negative (Negative) Urine Urobilinogen Negative (Negative) Ur Leukocyte Esterase 3+ H (Negative) Urine WBC (Auto) >30 H (0-5) /hpf Urine RBC (Auto) >30 H (0-4) /hpf U Hyaline Cast (Auto) 1-5 (0-5) /lpf U Epithel Cells (Auto) >30 H (0-5) /lpf Urine Bacteria (Auto) 4+ H (Negative) Urine Crystals Triple Phosphate A (None Prsent) Triple Phos Crystals Present A (None Prsent) Urine Yeast Not Reportable Influenza Type A (PCR) Neg for Influ A (Neg) Influenza Type B (PCR) Neg for Influ B (Neg) 10/19/19 10/19/19 10/19/19 Range/Units 15:58 15:58 15:58 WBC 14.24 H (4.8-10.8) K/uL RBC 3.39 L (4.2-5.4) M/uL Hgb 9.9 L (12.0-16.0) g/dL POC Hgb (12.0-16.0) g/dl Hct 32.4 L (37-47) % POC Hct (37-47) % MCV 95.6 (80-100) fL MCH 29.2 (25-34) pg MCHC 30.6 L (32-36) g/dL RDW Std Deviation 55.0 H (36.4-46.3) fL RDW Coeff of Tamra 15.7 H (11.5-14.5) % Plt Count 228 (130-400) K/uL MPV 10.0 (7.4-10.4) fL Immature Gran % (Auto) 1.1 % Neut % (Auto) 87.5 % Lymph % (Auto) 6.6 % Ramsey % (Auto) 3.7 % Eos % (Auto) 0.9 % Baso % (Auto) 0.2 % Immature Gran # (Auto) 0.16 H (0.00-0.02) K/uL Neut # (Auto) 12.46 H (1.4-6.5) K/uL Lymph # (Auto) 0.94 L (1.2-3.4) K/uL Ramsey # (Auto) 0.52 (0.11-0.59) K/uL Eos # (Auto) 0.13 (0-0.5) K/uL Baso # (Auto) 0.03 (0-0.2) K/uL Absolute Nucleated RBC 0.03 H (0-0) K/uL Nucleated RBC % (auto) 0.2 % PT 10.3 (9.0-12.0) Seconds INR 1.0 (0.9-1.1) APTT 21.7 (21.0-31.0) Seconds PTT Ratio 0.8 VBG pH (7.36-7.41) VBG pCO2 (38-50) mmHg VBG pO2 mmHg VBG HCO3 mmol/L VBG O2 Saturation % VBG Base Excess mEq/L Barometric Pressure mm/Hg POC Sodium (135-144) mmol/L Sodium 135 L (136-145) mmol/L POC Potassium (3.3-5.0) mmol/L Potassium 5.9 H (3.5-5.1) mmol/L POC Chloride (101-112) mmol/L Chloride 98 (98-107) mmol/L Carbon Dioxide 33 H (21-32) mmol/L POC Total CO2 (24-31) mEq/l Anion Gap 4.0 (3-11) POC Anion Gap (16-25) mmol/L POC BUN (7-18) mg/dl BUN 97 H (7-18) mg/dl Creatinine 2.66 H (0.6-1.2) mg/dl POC Creatinine (0.6-1.3) mg/dl Est Cr Clr Drug Dosing 33.2 ml/min Est GFR ( Amer) 21.3 Est GFR (Non-Af Amer) 18.4 BUN/Creatinine Ratio 36.5 H (10-20) Glucose 89 (70-99) mg/dl POC Glucose (70-99) mg/dl POC Glucose (other) (70-99) mg/dl POC Lactic Acid Azael (0.90-1.70) mmol/L Lactate (0.4-2.0) mmol/L Calcium 10.7 H (8.5-10.1) mg/dl POC Ioniz Calcium Esau (1.12-1.32) mmol/l Magnesium 3.1 H (1.8-2.4) mg/dl Total Bilirubin 0.4 (0.2-1) mg/dl AST 12 L (15-37) U/L ALT 23 (12-78) U/L Alkaline Phosphatase 68 (45-117) U/L Troponin I < 0.015 (0-0.045) ng/ml Total Protein 6.8 (6.4-8.2) gm/dl Albumin 3.1 L (3.4-5.0) gm/dl Globulin 3.7 (2.5-4.0) gm/dl Albumin/Globulin Ratio 0.8 L (0.9-2) Procalcitonin (0-0.5) ng/ml Urine Color Urine Appearance (Clear) Urine pH (4.5-7.5) Ur Specific Rosewood (1.000-1.030) Urine Protein (Negative) Urine Glucose (UA) (Negative) Urine Ketones (Negative) Urine Blood (Negative) Urine Nitrite (Negative) Urine Bilirubin (Negative) Urine Urobilinogen (Negative) Ur Leukocyte Esterase (Negative) Urine WBC (Auto) (0-5) /hpf Urine RBC (Auto) (0-4) /hpf U Hyaline Cast (Auto) (0-5) /lpf U Epithel Cells (Auto) (0-5) /lpf Urine Bacteria (Auto) (Negative) Urine Crystals (None Prsent) Triple Phos Crystals (None Prsent) Urine Yeast Influenza Type A (PCR) (Neg) Influenza Type B (PCR) (Neg) 10/19/19 10/19/19 10/19/19 Range/Units 15:58 15:58 15:58 WBC (4.8-10.8) K/uL RBC (4.2-5.4) M/uL Hgb (12.0-16.0) g/dL POC Hgb (12.0-16.0) g/dl Hct (37-47) % POC Hct (37-47) % MCV (80-100) fL MCH (25-34) pg MCHC (32-36) g/dL RDW Std Deviation (36.4-46.3) fL RDW Coeff of Tamra (11.5-14.5) % Plt Count (130-400) K/uL MPV (7.4-10.4) fL Immature Gran % (Auto) % Neut % (Auto) % Lymph % (Auto) % Ramsey % (Auto) % Eos % (Auto) % Baso % (Auto) % Immature Gran # (Auto) (0.00-0.02) K/uL Neut # (Auto) (1.4-6.5) K/uL Lymph # (Auto) (1.2-3.4) K/uL Ramsey # (Auto) (0.11-0.59) K/uL Eos # (Auto) (0-0.5) K/uL Baso # (Auto) (0-0.2) K/uL Absolute Nucleated RBC (0-0) K/uL Nucleated RBC % (auto) % PT (9.0-12.0) Seconds INR (0.9-1.1) APTT (21.0-31.0) Seconds PTT Ratio VBG pH 7.37 (7.36-7.41) VBG pCO2 62 H (38-50) mmHg VBG pO2 40 mmHg VBG HCO3 35 mmol/L VBG O2 Saturation 68.1 % VBG Base Excess 8.0 mEq/L Barometric Pressure 727.9 mm/Hg POC Sodium (135-144) mmol/L Sodium (136-145) mmol/L POC Potassium (3.3-5.0) mmol/L Potassium (3.5-5.1) mmol/L POC Chloride (101-112) mmol/L Chloride (98-107) mmol/L Carbon Dioxide (21-32) mmol/L POC Total CO2 (24-31) mEq/l Anion Gap (3-11) POC Anion Gap (16-25) mmol/L POC BUN (7-18) mg/dl BUN (7-18) mg/dl Creatinine (0.6-1.2) mg/dl POC Creatinine (0.6-1.3) mg/dl Est Cr Clr Drug Dosing ml/min Est GFR ( Amer) Est GFR (Non-Af Amer) BUN/Creatinine Ratio (10-20) Glucose (70-99) mg/dl POC Glucose (70-99) mg/dl POC Glucose (other) (70-99) mg/dl POC Lactic Acid Azael (0.90-1.70) mmol/L Lactate 1.0 (0.4-2.0) mmol/L Calcium (8.5-10.1) mg/dl POC Ioniz Calcium Esau (1.12-1.32) mmol/l Magnesium (1.8-2.4) mg/dl Total Bilirubin (0.2-1) mg/dl AST (15-37) U/L ALT (12-78) U/L Alkaline Phosphatase (45-117) U/L Troponin I (0-0.045) ng/ml Total Protein (6.4-8.2) gm/dl Albumin (3.4-5.0) gm/dl Globulin (2.5-4.0) gm/dl Albumin/Globulin Ratio (0.9-2) Procalcitonin 0.21 (0-0.5) ng/ml Urine Color Urine Appearance (Clear) Urine pH (4.5-7.5) Ur Specific Rosewood (1.000-1.030) Urine Protein (Negative) Urine Glucose (UA) (Negative) Urine Ketones (Negative) Urine Blood (Negative) Urine Nitrite (Negative) Urine Bilirubin (Negative) Urine Urobilinogen (Negative) Ur Leukocyte Esterase (Negative) Urine WBC (Auto) (0-5) /hpf Urine RBC (Auto) (0-4) /hpf U Hyaline Cast (Auto) (0-5) /lpf U Epithel Cells (Auto) (0-5) /lpf Urine Bacteria (Auto) (Negative) Urine Crystals (None Prsent) Triple Phos Crystals (None Prsent) Urine Yeast Influenza Type A (PCR) (Neg) Influenza Type B (PCR) (Neg) 10/19/19 10/19/19 10/19/19 Range/Units 16:00 16:04 18:11 WBC (4.8-10.8) K/uL RBC (4.2-5.4) M/uL Hgb (12.0-16.0) g/dL POC Hgb 10.2 L (12.0-16.0) g/dl Hct (37-47) % POC Hct 30 L (37-47) % MCV (80-100) fL MCH (25-34) pg MCHC (32-36) g/dL RDW Std Deviation (36.4-46.3) fL RDW Coeff of Tamra (11.5-14.5) % Plt Count (130-400) K/uL MPV (7.4-10.4) fL Immature Gran % (Auto) % Neut % (Auto) % Lymph % (Auto) % Ramsey % (Auto) % Eos % (Auto) % Baso % (Auto) % Immature Gran # (Auto) (0.00-0.02) K/uL Neut # (Auto) (1.4-6.5) K/uL Lymph # (Auto) (1.2-3.4) K/uL Ramsey # (Auto) (0.11-0.59) K/uL Eos # (Auto) (0-0.5) K/uL Baso # (Auto) (0-0.2) K/uL Absolute Nucleated RBC (0-0) K/uL Nucleated RBC % (auto) % PT (9.0-12.0) Seconds INR (0.9-1.1) APTT (21.0-31.0) Seconds PTT Ratio VBG pH (7.36-7.41) VBG pCO2 (38-50) mmHg VBG pO2 mmHg VBG HCO3 mmol/L VBG O2 Saturation % VBG Base Excess mEq/L Barometric Pressure mm/Hg POC Sodium 134 L (135-144) mmol/L Sodium 138 (136-145) mmol/L POC Potassium 6.0 H (3.3-5.0) mmol/L Potassium 5.6 H (3.5-5.1) mmol/L POC Chloride 95 L (101-112) mmol/L Chloride 100 (98-107) mmol/L Carbon Dioxide 35 H (21-32) mmol/L POC Total CO2 35 H (24-31) mEq/l Anion Gap 3.0 (3-11) POC Anion Gap 11.0 L (16-25) mmol/L POC BUN 109 H* (7-18) mg/dl BUN 89 H (7-18) mg/dl Creatinine 2.47 H (0.6-1.2) mg/dl POC Creatinine 2.8 H (0.6-1.3) mg/dl Est Cr Clr Drug Dosing 35.8 ml/min Est GFR ( Amer) 23.3 Est GFR (Non-Af Amer) 20.1 BUN/Creatinine Ratio 36.1 H (10-20) Glucose 101 H (70-99) mg/dl POC Glucose (70-99) mg/dl POC Glucose (other) 89 (70-99) mg/dl POC Lactic Acid Azael 0.86 L (0.90-1.70) mmol/L Lactate (0.4-2.0) mmol/L Calcium 10.8 H (8.5-10.1) mg/dl POC Ioniz Calcium Esau 1.32 (1.12-1.32) mmol/l Magnesium (1.8-2.4) mg/dl Total Bilirubin (0.2-1) mg/dl AST (15-37) U/L ALT (12-78) U/L Alkaline Phosphatase (45-117) U/L Troponin I (0-0.045) ng/ml Total Protein (6.4-8.2) gm/dl Albumin (3.4-5.0) gm/dl Globulin (2.5-4.0) gm/dl Albumin/Globulin Ratio (0.9-2) Procalcitonin (0-0.5) ng/ml Urine Color Urine Appearance (Clear) Urine pH (4.5-7.5) Ur Specific Rosewood (1.000-1.030) Urine Protein (Negative) Urine Glucose (UA) (Negative) Urine Ketones (Negative) Urine Blood (Negative) Urine Nitrite (Negative) Urine Bilirubin (Negative) Urine Urobilinogen (Negative) Ur Leukocyte Esterase (Negative) Urine WBC (Auto) (0-5) /hpf Urine RBC (Auto) (0-4) /hpf U Hyaline Cast (Auto) (0-5) /lpf U Epithel Cells (Auto) (0-5) /lpf Urine Bacteria (Auto) (Negative) Urine Crystals (None Prsent) Triple Phos Crystals (None Prsent) Urine Yeast Influenza Type A (PCR) (Neg) Influenza Type B (PCR) (Neg) 10/19/19 Range/Units 18:16 WBC (4.8-10.8) K/uL RBC (4.2-5.4) M/uL Hgb (12.0-16.0) g/dL POC Hgb 9.9 L (12.0-16.0) g/dl Hct (37-47) % POC Hct 29 L (37-47) % MCV (80-100) fL MCH (25-34) pg MCHC (32-36) g/dL RDW Std Deviation (36.4-46.3) fL RDW Coeff of Tamra (11.5-14.5) % Plt Count (130-400) K/uL MPV (7.4-10.4) fL Immature Gran % (Auto) % Neut % (Auto) % Lymph % (Auto) % Ramsey % (Auto) % Eos % (Auto) % Baso % (Auto) % Immature Gran # (Auto) (0.00-0.02) K/uL Neut # (Auto) (1.4-6.5) K/uL Lymph # (Auto) (1.2-3.4) K/uL Ramsey # (Auto) (0.11-0.59) K/uL Eos # (Auto) (0-0.5) K/uL Baso # (Auto) (0-0.2) K/uL Absolute Nucleated RBC (0-0) K/uL Nucleated RBC % (auto) % PT (9.0-12.0) Seconds INR (0.9-1.1) APTT (21.0-31.0) Seconds PTT Ratio VBG pH (7.36-7.41) VBG pCO2 (38-50) mmHg VBG pO2 mmHg VBG HCO3 mmol/L VBG O2 Saturation % VBG Base Excess mEq/L Barometric Pressure mm/Hg POC Sodium 136 (135-144) mmol/L Sodium (136-145) mmol/L POC Potassium 5.5 H (3.3-5.0) mmol/L Potassium (3.5-5.1) mmol/L POC Chloride 96 L (101-112) mmol/L Chloride (98-107) mmol/L Carbon Dioxide (21-32) mmol/L POC Total CO2 35 H (24-31) mEq/l Anion Gap (3-11) POC Anion Gap 11.0 L (16-25) mmol/L POC BUN 103 H* (7-18) mg/dl BUN (7-18) mg/dl Creatinine (0.6-1.2) mg/dl POC Creatinine 2.8 H (0.6-1.3) mg/dl Est Cr Clr Drug Dosing ml/min Est GFR ( Amer) Est GFR (Non-Af Amer) BUN/Creatinine Ratio (10-20) Glucose (70-99) mg/dl POC Glucose (70-99) mg/dl POC Glucose (other) 98 (70-99) mg/dl POC Lactic Acid Azael (0.90-1.70) mmol/L Lactate (0.4-2.0) mmol/L Calcium (8.5-10.1) mg/dl POC Ioniz Calcium Esau 1.34 H (1.12-1.32) mmol/l Magnesium (1.8-2.4) mg/dl Total Bilirubin (0.2-1) mg/dl AST (15-37) U/L ALT (12-78) U/L Alkaline Phosphatase (45-117) U/L Troponin I (0-0.045) ng/ml Total Protein (6.4-8.2) gm/dl Albumin (3.4-5.0) gm/dl Globulin (2.5-4.0) gm/dl Albumin/Globulin Ratio (0.9-2) Procalcitonin (0-0.5) ng/ml Urine Color Urine Appearance (Clear) Urine pH (4.5-7.5) Ur Specific [place] (1.000-1.030) Urine Protein (Negative) Urine Glucose (UA) (Negative) Urine Ketones (Negative) Urine Blood (Negative) Urine Nitrite (Negative) Urine Bilirubin (Negative) Urine Urobilinogen (Negative) Ur Leukocyte Esterase (Negative) Urine WBC (Auto) (0-5) /hpf Urine RBC (Auto) (0-4) /hpf U Hyaline Cast (Auto) (0-5) /lpf U Epithel Cells (Auto) (0-5) /lpf Urine Bacteria (Auto) (Negative) Urine Crystals (None Prsent) Triple Phos Crystals (None Prsent) Urine Yeast Influenza Type A (PCR) (Neg) Influenza Type B (PCR) (Neg) Diagnostic Findings XR chest 1V portable CLINICAL HISTORY: SEPSIS dyspnea COMPARISON STUDY: 03/09/2018 FINDINGS: Moderate stable cardiomegaly. Bilateral platelike atelectasis. No acute infiltrate. Diaphragms are smooth. IMPRESSION: Moderate cardiomegaly. No acute infiltrate. ACT 112: Negative or not required by law. The above report was generated using voice recognition software. It may contain grammatical, syntax or spelling errors. Electronically signed by: Anil Monae M.D. 10/19/2019 4:21 PM Dictated: 10/19/191620 Transcribed: 10/19/191620 - RENAL ULTRASOUND HISTORY: Acute kidney injury. COMPARISON: Renal ultrasound 09/11/2019. FINDINGS: Right kidney: 12.1 cm. No hydronephrosis. Normal corticomedullary differentiation. Mild cortical thinning. Left kidney: 11.7 cm. No hydronephrosis. Normal corticomedullary differentiation. Mild cortical thinning. Bladder: Bladder is decompressed by Garcia catheter and therefore not well visualized. IMPRESSION: No hydronephrosis. ACT 112: Negative or not required by law. Electronically signed by: Willy Gaffney M.D. 10/19/2019 7:45 PM Dictated: 10/19/191943 Transcribed: 10/19/191943 ECG Additional Comments: Study shows NSR at 76bpm, XG=944, QRS=92, WYs=983, no acute ischemic changes Code Status & VTE Plan Code Status FULL CODE VTE Prophylaxis Plan VTE Prophylaxis will be ordered: Yes PG Care Time/CCT Total # of Minutes Spent Total Time Spent with Patient: Total time spent is greater than 50% in coordination of care (as documented) at patient's floor/unit and/or counseling patient: Coding Level of Care Code 08318 Initial Inpt Care Lvl 3 Diagnoses Acute renal failure N17.9 Acute renal failure type: unspecified Hyperkalemia E87.5 Acute UTI N39.0 Hypothyroid E03.9 Hypothyroidism type: unspecified Chronic pain syndrome G89.4 Morbid obesity E66.01 Chronic indwelling Garcia catheter Z96.0 Chronic respiratory failure with hypoxia and hypercapnia J96.11; J96.12 Hypertension I10 Hypertension type: essential hypertension COPD (chronic obstructive pulmonary disease) J44.9 COPD type: unspecified COPD ZACKARY (obstructive sleep apnea) G47.33 DM II (diabetes mellitus, type II), controlled E11.29; Z79.4 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: with long-term use Diabetes mellitus complication status: with kidney complications Diabetes mellitus complication detail: with other kidney complication NAFLD (nonalcoholic fatty liver disease) K76.0 (1) Acute renal failure Acute renal failure type: unspecified Qualified Code(s): N17.9 - Acute kidney failure, unspecified (2) Hypothyroid Hypothyroidism type: unspecified Qualified Code(s): E03.9 - Hypothyroidism, unspecified (3) DM II (diabetes mellitus, type II), controlled 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: with longwall headgate operator use Diabetes mellitus complication status: with kidney complications Diabetes mellitus complication detail: with other kidney complication Qualified Code(s): E11.29 - Type 2 diabetes mellitus with other diabetic kidney complication; 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
[2019-10-19] MEDS ORDERED: GLUCOSE 10 TABS/TUBE PO PRN (20:39)
[2019-10-19] MEDS ORDERED: DEXTROSE 50% 50 ML SYRINGE IV PRN (20:39)
[2019-10-19] MEDS ORDERED: ACETAMINOPHEN 325 MG TAB PO PRN (20:39)
[2019-10-19] MEDS ORDERED: GLUCAGON FOR INJ 1 MG VIAL SQ PRN (20:39)
[2019-10-19] MEDS ORDERED: CARBOHYDRATES FOR HYPOGLYCEMIA PO PRN (20:39)
[2019-10-19] MEDS ORDERED: GLUCOSE 40% GEL 15 GM TUBE PO PRN (20:39)
[2019-10-19] MEDS ORDERED: [UNRECOGNIZED DRUG - OTHER] SCH (21:00)
[2019-10-19] MEDS ORDERED: INSULIN REGULAR HUMAN SCH (21:00)
[2019-10-19] MEDS ORDERED: HumuLIN-R 500 UNITS/ML VIAL SC PRN (21:00)
[2019-10-19] MEDS: SODIUM CHLORIDE 0.9% 1000ML 1,000 ML IV SCH (21:12)
[2019-10-19] MEDS: DOCUSATE SODIUM 100 MG CAP PO SCH (21:31)
[2019-10-19] MEDS: carvediloL 3.125 MG TAB PO SCH (21:32)
[2019-10-19] MEDS: OXYCODONE HCL IR 5 MG TAB (IMMEDIATE RELEASE) PO SCH (21:33)
[2019-10-19] MEDS: GABAPENTIN 100 MG CAP PO SCH (21:33)
[2019-10-19] MEDS: HEPARIN SOD 5,000 UNIT/0.5 ML VIAL SQ SCH (21:40)
[2019-10-19] MEDS: NYSTATIN POWDER 15GM BTL EXT SCH (21:41)
[2019-10-19 22:22] LABS: Creatinine Urine Random 55.3 mg/dl
[2019-10-20] MEDS: CEFEPIME 2,000 MG in SYRINGE 7.5 ML IV SCH ×2 (04:48→15:45)
[2019-10-20] MEDS: SODIUM CHLORIDE 0.9% 1000ML 1,000 ML IV SCH (04:51)
[2019-10-20] MEDS: LEVOTHYROXINE SODIUM 88 MCG TABLET PO SCH (06:12)
[2019-10-20] MEDS: HEPARIN SOD 5,000 UNIT/0.5 ML VIAL SQ SCH ×3 (06:12→21:30)
[2019-10-20 07:18] LABS: Basophils # (auto) 0.04 K/uL (0-0.2); Basophils % (auto) 0.4 %; Hematocrit (blood only) 29.6 % (37-47); Hemoglobin 8.9 g/dL (12.0-16.0); Immature Granulocytes # (auto) 0.15 K/uL (0.00-0.02); Immature Granulocytes % (auto) 1.5 %; Lymphocytes # (auto) 1.43 K/uL (1.2-3.4); Lymphocytes % (auto) 14.1 %; Mean Corpuscular Hemoglobin 28.9 pg (25-34); Mean Corpuscular Hgb Conc 30.1 g/dL (32-36); Mean Corpuscular Volume 96.1 fL (80-100); Mean Platelet Volume 9.6 fL (7.4-10.4); Monocytes # (auto) 0.64 K/uL (0.11-0.59); Monocytes % (auto) 6.3 %; Neutrophils # (auto) 7.68 K/uL (1.4-6.5); Neutrophils % (auto) 75.7 %; Platelet Count 218 K/uL (130-400); RDW Coefficient of Variation 15.7 % (11.5-14.5); RDW Standard Deviation 54.7 fL (36.4-46.3); Red Blood Count 3.08 M/uL (4.2-5.4); White Blood Count 10.14 K/uL (4.8-10.8)
[2019-10-20] MEDS: OXYCODONE HCL IR 5 MG TAB (IMMEDIATE RELEASE) PO SCH ×5 (07:38→21:21)
[2019-10-20] MEDS: GABAPENTIN 100 MG CAP PO SCH (07:39)
[2019-10-20] MEDS: carvediloL 3.125 MG TAB PO SCH ×2 (07:40→21:20)
[2019-10-20] MEDS: DOCUSATE SODIUM 100 MG CAP PO SCH ×2 (07:41→21:20)
[2019-10-20] MEDS: FLUTICASONE/VILANTEROL 100/25MCG 14 PUFFS/INHALER INH SCH (07:41)
[2019-10-20] MEDS: UMECLIDINIUM BROMIDE 62.5MCG/BLISTER 7 PUFFS/INHALER INH SCH (07:43)
[2019-10-20] MEDS: NYSTATIN POWDER 15GM BTL EXT SCH ×2 (07:43→21:25)
[2019-10-20] MEDS: PANTOprazole 40 MG TAB PO SCH (07:43)
[2019-10-20] MEDS: INSULIN GLARGINE SOLOSTAR 100 UNITS/ML 3 ML PEN SC SCH ×2 (07:44→21:29)
[2019-10-20 07:47] LABS: BUN Creatinine Ratio 48.8 (10-20); Calcium 9.7 mg/dl (8.5-10.1); Creatinine Clr Calc Pharmacy 53.7 ml/min; Est GFR (African American) 37.9; Est GFR (Non-African American) 32.7; Potassium 4.7 mmol/L (3.5-5.1)
[2019-10-20] MEDS: INSULIN ASPART 100 UNITS/ML 3 ML PEN SC SCH ×4 (07:49→21:29)
[2019-10-20] MEDS ORDERED: CEFEPIME 1,000 MG in SYRINGE 0 ML IV SCH (09:00)
--- NOTE | 2019-10-20 10:10 | Electrocardiogram Report ---
Test Reason : Blood Pressure : / mmHG Vent. Rate : 076 BPM Atrial Rate : 076 BPM P-R Int : 166 ms QRS Dur : 092 ms QT Int : 370 ms P-R-T Axes : 040 012 094 degrees QTc Int : 416 ms Normal sinus rhythm Deep T wave inversions V1, V2 and AVL consider ischemia Abnormal ECG When compared with ECG of 11-SEP-2019 11:16, T wave inversion now evident in Lateral leads and V1 and V2 repeat tracing with normalization of K+ and for assess for evolutionary ischemic changes Confirmed by Eugenio Delgado ([id number]) on 10/20/2019 10:09:32 AM Referred By: Confirmed By:Eugenio Delgado
[2019-10-20] MEDS ORDERED: NON-FORMULARY MEDICATION (Zinc 50 MG) PO SCH (12:00)
--- NOTE | 2019-10-20 12:04 | Hospitalist Progress Note ---
Date of Service October 20, 2019 Assessment & Plan (1) Acute renal failure: 64yo C female with multiple medical problems to include HTN/HLP/DM/NAFLD/morbid obesity, previous admission for HOLLY requiring emergent HD x 3 sessions in August 2019. She presents with HOLLY. BUN= 97 on arrival which has improved to 89, Cr=2.66 on arrival which has improved to 2.47 (progressive decline in renal function since February 2019). K= 5.9 --> 5.6, no EKG changes of hyperkalemia. Patient administered Albu terol/Insulin/D50/Kayexelate in the ER. HCO3= 35 and pH on VBG=7.37. Patient with Barboza repositioned, now draining clear, yellow urine. Renal US unremarkable. Multifactorial - most likely some underlying CKD, history of DM/HTN/HLP, prior need for HD. ?HOLLY in setting of malfunctioning Barboza/dehydration/UTI, medication effects of Lisinopril/diuretic -fortunately improved greatly with change of barboza, fluids, holding lisinopril - strongly suspect some/all of this was culprit. continue fluids( reduce) and hold ACEi, diuretic - may need to hold/reduce at discharge as well -follow cultures as far as infection and continue cefepime pending results (2) Hyperkalemia: improved with above measures. (3) Acute UTI: cefepime pending culture results (4) Hypothyroid: Chronic -Continue Synthroid (5) Chronic pain syndrome: Chronic and seems stable today -Continue Oxycodone -resume home dosing of gabapentin since CrCl improving (6) Morbid obesity: Noted. -certainly a contributing factor to her comorbidities (7) Chronic indwelling Barboza catheter: Replaced in ER. Now draining clear, yellow urine -Monitor I/Os -Barboza care q shift (8) Chronic respiratory failure with hypoxia and hypercapnia: Patient with adequate oxygenation on NC. No respiratory distress -Continue to monitor (9) Hypertension: Blood pressure low end of acceptable, continue to hold lasix and lisinopril (10) COPD (chronic obstructive pulmonary disease): Stable. no respiratory symptoms -Continue Spiriva, Fluticasone/Salmeterol (11) ZACKARY (obstructive sleep apnea): Patient unable to tolerate CPAP -Continue supplemental O2 qHS (12) DM II (diabetes mellitus, type II), controlled: sugars reasonable control -Continue insulin pump -Hold metformin (13) NAFLD (nonalcoholic fatty liver disease): Noted Skin breakdown - Continue Zinc, Nystatin, Wound Care BID. -nursing evaluating for ?wound care eval F/E/N - NSS at 125mL/hr x 2 liters, monitor BMP BID for renal function and K, CC diet as tolerated Ppx - Heparin TID Code -Full per discussion with patient by admitting physician Dispo - stable for medical, hopefully home tomorrow depending on ongoing improvement and results of urine culture (and feasibility of outpt Rx) Admission and Anticipated Discharge Date Admission Date: October 19, 2019 Anticipated date of discharge: 10/21/19 Subjective mainly complaints of her chronic pain - R leg (although by the time i go to examine she notes it's feeling better) and b/l hand pain (chronic)(home pain meds help) and buttocks pain (notes she puts vaseline on at home - would like this or similar no nausea, ate well today. no belly pain other than feeling a little constipation Review of Systems Review of Systems: All systems reviewed & are unremarkable except as noted in HPI & below Physical Exam Physical Exam: gen aao pleasant nad heent nc at mmm abd soft nd nt no masses ext no cyanosis, chronic venous stasis changes b/l LE, hands without palpable tenderness. no tenderness to light touch no motor weakness. Results & Data Results & Data ([facility]) Vital Signs (Past 12 Hours) Vital Signs Temp Pulse Pulse Resp BP Pulse Ox 10/20/19 11:54 99.1 F 86 20 94/53 L 97 10/20/19 07:14 98.2 F 81 18 107/65 100 10/20/19 03:39 98.8 F 80 20 105/50 L 92 10/20/19 00:20 87 PG Care Time/CCT Total # of Minutes Spent Total Time Spent with Patient: Total time spent is greater than 50% in coordination of care (as documented) at patient's floor/unit and/or counseling patient: Coding Level of Care Code 46596 Subseq Hosp Care Lvl 3 Diagnoses Acute renal failure N17.9 Acute renal failure type: unspecified Hyperkalemia E87.5 Acute UTI N39.0 Hypothyroid E03.9 Hypothyroidism type: unspecified Chronic pain syndrome G89.4 Morbid obesity E66.01 Chronic indwelling Barboza catheter Z96.0 Chronic respiratory failure with hypoxia and hypercapnia J96.11; J96.12 Hypertension I10 Hypertension type: essential hypertension COPD (chronic obstructive pulmonary disease) J44.9 COPD type: unspecified COPD ZACKARY (obstructive sleep apnea) G47.33 DM II (diabetes mellitus, type II), controlled E11.29; Z79.4 Diabetes mellitus prison insulin use: with prison use Diabetes mellitus complication status: with kidney complications Diabetes mellitus complication detail: with other kidney complication NAFLD (nonalcoholic fatty liver disease) K76.0 (1) Acute renal failure Acute renal failure type: unspecified Qualified Code(s): N17.9 - Acute kidney failure, unspecified (2) Hypothyroid Hypothyroidism type: unspecified Qualified Code(s): E03.9 - Hypothyroidism, unspecified (3) Hypertension Hypertension type: essential hypertension Qualified Code(s): I10 - Essential (primary) hypertension (4) COPD (chronic obstructive pulmonary disease) COPD type: unspecified COPD Qualified Code(s): J44.9 - Chronic obstructive pulmonary disease, unspecified (5) DM II (diabetes mellitus, type II), controlled Diabetes mellitus prison insulin use: with prison use Diabetes mellitus complication status: with kidney complications Diabetes mellitus complication detail: with other kidney complication Qualified Code(s): E11.29 - Type 2 diabetes mellitus with other diabetic kidney complication; Z79.4 - halfway (current) use of insulin
[2019-10-20] MEDS: MAGNESIUM OXIDE 400 MG TAB PO SCH ×2 (12:59→14:00)
[2019-10-20] MEDS: FERROUS SULFATE 325 MG TAB PO SCH ×2 (13:00→14:00)
[2019-10-20] MEDS: GABAPENTIN 300 MG CAP PO SCH ×2 (14:00→21:21)
[2019-10-20 17:22] LABS: BUN Creatinine Ratio 44.5 (10-20); Calcium 9.5 mg/dl (8.5-10.1); Creatinine Clr Calc Pharmacy 54.7 ml/min; Est GFR (African American) 38.8; Est GFR (Non-African American) 33.4; Potassium 4.9 mmol/L (3.5-5.1)
[2019-10-21] MEDS: CEFEPIME 2,000 MG in SYRINGE 7.5 ML IV SCH (03:50)
[2019-10-21] MEDS: LEVOTHYROXINE SODIUM 88 MCG TABLET PO SCH (06:01)
[2019-10-21] MEDS: HEPARIN SOD 5,000 UNIT/0.5 ML VIAL SQ SCH (06:01)
[2019-10-21 07:43] LABS: BUN Creatinine Ratio 45.6 (10-20); Calcium 9.8 mg/dl (8.5-10.1); Creatinine Clr Calc Pharmacy 56.1 ml/min; Est GFR (African American) 39.9; Est GFR (Non-African American) 34.5; Potassium 4.5 mmol/L (3.5-5.1)
[2019-10-21] MEDS: GABAPENTIN 300 MG CAP PO SCH (07:57)
[2019-10-21] MEDS: DOCUSATE SODIUM 100 MG CAP PO SCH (07:57)
[2019-10-21] MEDS: PANTOprazole 40 MG TAB PO SCH (07:58)
[2019-10-21] MEDS: UMECLIDINIUM BROMIDE 62.5MCG/BLISTER 7 PUFFS/INHALER INH SCH (07:58)
[2019-10-21] MEDS: FLUTICASONE/VILANTEROL 100/25MCG 14 PUFFS/INHALER INH SCH (07:58)
[2019-10-21] MEDS: INSULIN GLARGINE SOLOSTAR 100 UNITS/ML 3 ML PEN SC SCH (07:59)
[2019-10-21] MEDS: INSULIN ASPART 100 UNITS/ML 3 ML PEN SC SCH ×2 (08:00→12:05)
[2019-10-21] MEDS: carvediloL 3.125 MG TAB PO SCH (08:02)
[2019-10-21] MEDS: NYSTATIN POWDER 15GM BTL EXT SCH (08:02)
[2019-10-21] MEDS: OXYCODONE HCL IR 5 MG TAB (IMMEDIATE RELEASE) PO SCH (08:05)
[2019-10-21] MEDS: FERROUS SULFATE 325 MG TAB PO SCH (12:05)
[2019-10-21] MEDS: MAGNESIUM OXIDE 400 MG TAB PO SCH (12:05)
--- NOTE | 2019-10-21 16:29 | Discharge Summary ---
Date of Service October 21, 2019 Admission HPI Per Admitting Provider Joellen Ayoub is a 64yo C female with multiple medical comorbidities to include DM/HTN/HLP/NAFL/COPD and morbid obesity. She was recently admitted to [facility] on 09/11/19 with acute renal failure, AMS. She was subsequently transferred to [facility] for emergent dialysis. She reports receiving 3 HD treatments at that time. She was discharged home in stable condition and instructed to followup with a Forensic Structural Engineer - Telemedicine appointment scheduled for October 23 with Porfirio Betancourt. She presents today with complaint of lethargy and malfunctioning Barboza catheter. She reports decreased UOP from her indwelling Barboza for the last few days and no output today. She also reports increase in myoclonic jerking. She denies CP/palpitations/SOB/nausea/vomiting/diarrhea or constipation. She has been eating and drinking well, taking her medications as prescribed. ER staff reports leaking around the Barboza when patient arrived. Barboza replaced without difficulty No recent travel. No sick contacts. No respiratory complaints or fever. No concern for Covid-19 ER Course: Albuterol 10mL neb, Calcium gluconate 1gm, Insulin 10u/Dextrose 1 amp, Kayexelate 30gm, Cefepime 2gm, NSS x 1L bolus then 125mL/hr Barboza catheter replaced in ER Principal Diagnosis ARF on CKD Discharge Exam vitals noted aao pleasant nad heent nc at mmm breathing unlabored no accessory muscles good effort skin no rashes no pallor or icterus no new focal neuro deficits, random small to medium amplitude myoclonic jerks at times Discharge Data Allergies Allergy/AdvReac Type Severity Reaction Status Date / Time cephalexin [From Keflex] Allergy Mild Rash Unverified 10/19/19 17:07 Consultations 10/19/19 19:31 ED Decision to Admit Stat 10/21/19 10:32 [facility] Referral Routine 10/21/19 11:42 Consult Case Management - Discharge Planning Routine Ordered Studies 10/19/19 18:29 US renal/blad retro comp Stat Hospital Course (1) Acute renal failure: had ARF requiring HD a month ago, new baseline not yet known. was for outpt nephro follow up - came to ER - Cr ~2.7 - wasn't clear the cause, but after treatment and review most likely was dehydration/barboza malfunction, or both. --Cr now improved - currently 1.58, safe/stable for home *main question is her home meds - was on quite a bit of diuretic (if med rec right, 1mg bumex BID AND 40mg lasix BID, and not clear that she has ever had CHF (can't find record of such, echo, she doesn't ever recall pulmonary edema, etc) --- so given this, seems that diuretic use may be part of her renal failure issues - cautiously will reduce down to bumex 0.5mg daily (with hopes of weaning to none or at least keeping at minimal if she does not run into trouble) --> instructed to follow for any dyspnea and call right away if this occurs; BMP ~2- 3 days then would anticipate weekly thereafter. continue to adjust dosing based on how she's doing as outpt. for now until clearly stable in a euvolemic state, ACEi on hold as well - but would anticipate wanting to resume this in near future not only for BP but for nephroprotective effect* (2) Hyperkalemia: improved with above measures. BMP 2-3 days as outpt (3) Acute UTI: initially had concern on UTI POA - but after further review this seems far less likely. had been treated w cefepime, but culture without dominant growth - right now pinpoint/reincubating - so home on no abx; if a dominant growth occurs may need to call for sx and consider outpt Rx (4) Hypothyroid: Chronic -Continue Synthroid (5) Chronic pain syndrome: see discharge instructions - discussed big picture plan that might help her over the long run - although changes will have to be slow and stepwise. i do wonder if meds are contributing some to her myoclonic jerks (6) Morbid obesity: Noted. -certainly a contributing factor to her comorbidities (7) Chronic indwelling Barboza catheter: Replaced in ER. Now draining clear, yellow urine (8) Chronic respiratory failure with hypoxia and hypercapnia: Patient with adequate oxygenation on NC. No respiratory distress -Continue to monitor (9) Hypertension: mostly will go hand in hand with meds as listed under ARF (10) COPD (chronic obstructive pulmonary disease): Stable. no respiratory symptoms -Continue Spiriva, Fluticasone/Salmeterol (11) ZACKARY (obstructive sleep apnea): Patient unable to tolerate CPAP -Continue supplemental O2 qHS (12) DM II (diabetes mellitus, type II), controlled: home regimen and outpt f/u (13) NAFLD (nonalcoholic fatty liver disease): Noted Skin breakdown - Continue Zinc, Nystatin, Wound Care BID. -nursing evaluating for ?wound care eval Ppx - Heparin TID utilized during her stay dispo - stable for home Total Time Total Time Spent Total Time Spent (In Minutes): >30 Discharge Plan Discharge Items Patient Disposition: Home - Home Health Services Reason For Visit: HOLLY Discharge Diagnosis: decline in kidney function now improved - see below Activity: Resume your previous activity Non-emergency contact: Primary Care Provider and Forensic Structural Engineer Call non-emergency contact if: you have any medication questions and your symptoms worsen Follow-up/Referrals: Robbie Yeh [Primary Care Provider] - (Please call your PCP to see if they would like a follow up appt. ) Diet: Carb Consistent or DM2 Addtl Attending Provider Instructions: kidney failure -your kidney numbers were not nearly as badly elevated as they were in august - your creatinine (the main lab we look at for kidney function) was 2.66 when you got admitted (as opposed to a peak of 4.84 in august) (normal is about 1.0) -- and now is down to 1.58. it's not clear what your "new normal" will be after what happened in august, but this is so close to truly normal that i suspect this is around where you'll be running -we'll want to continue to keep an eye on things - and will ask that home health get involved so that we can have labwork drawn at home -we've revamped your medications to be more "kidney friendly" (see below) -we'd ask that you check a blood pressure once a day or so med changes -we're dramatically reducing your diuretic dosing - typically if medications can impact on kidneys, diuretics are the biggest culprit -it's not clear that you've ever really been much of a "congestive heart failure" person - so frequently we'll see that when someone has been on pretty big doses of diuretics just to control "regular swelling" that reducing the diuretics doesn't change the swelling much in a worse way, but does allow kidney numbers to improve -of course it's important to pay attention to breathing as we try to reduce the diuretics, if you were to notice new or worsening shortness of breath, we would want you to call right away, as this could be a sign that you actually do need the medicine to keep fluid out of your lungs, but this does not seem to be a likely problem for you -with that in mind, for now we're stopping the lasix (furosemide) entirely, and reducing the bumex (bumetanide) to 0.5mg once a day -we'd ask that you have labwork (BMP, basic metabolic panel) checked on Tuesday or Tuesday (10/22 or 10/23) -for the short term we'll have you hold off on your lisinopril as well -- typically lisinopril is actually a very helpful medicine to protect kidneys, except when things happen that get kidneys dehydrated, then sometimes it is needed to "put it on the shelf" for a while -- don't throw it away, but for now we'll have you not take it until there's a clear and stable plateau with your kidney function - then your outpatient docs will have you probably restart it and then check labs about a week after -follow your blood pressure each day with these dose reductions to make sure things don't get too high. while in the intermediate card tender we'd want your pressures below about 140/90, for the short term (a few weeks) while things are being adjusted, anything below about 160/100 is reasonable. i doubt you will run that high urine culture -your urine culture was not showing any growth of significance, but the lab was letting it "cook" for longer to make sure there's nothing of concern; however, most of your situation seems to have corrected with replacing the catheter and giving you IV fluids, so i doubt that a serious infection played a role pain medications -as we discussed, over the prison, you'll probably do better if we can get you to a different overall approach for your pain you may have better pain control and less medication side effect ---overall, what we're learning is that pain is a "whole person" phenomenon, where it's really a site of pain/nerves that carry pain/brain that interprets the pain problem, not just a "site of pain" problem; with that in mind, usually going after pain in a multimodal approach will do better - both as a mixture of different medications and treatment modalities, but also in a true mind/body way of trying to work on how you perceive pain/cope with pain/etc -one thing that we have learned over the last 5 years is that opiates are more "sneaky" in bad ways than we realized - one of the most relevant to a chronic pain patient being the side effect of "opiate induced hyperalgesia" -- meaning that after some degree of chronic use, people actually will sometimes have their perception of pain HEIGHTENED by the use of opiates - which can then create a bit of a cycle where the pain meds treat the pain that they've increased perception of to begin with. in that respect, having your docs slowly take you up on gabapentin and maybe using a medication that changes how your brain perceives pain (like duloxetine or amitryptilline) while SLOWLY working down on the narcotics (so we don't cause withdrawal) while at the same time giving trial to different topicals (lidocaine, diclofenac gel, capsaicin) in areas you have pain and/or possibly nerve blocks for selected areas (which can be done with an interventional pain management doc) while at the same time working on the mind- body part of pain (with pain counselling, neurofeedback, etc) could do an eventual "reboot" on where you're at with things. think of this as a 3-5 year plan, though - as success will have to come with slow increments Pending Studies at Discharge: Yes (see above "urine culture") Stand-Alone Forms: My [facility] [employer], Smoking Cessation Medications and DC Order Prescriptions: New bumetanide 0.5 mg tablet 0.5 mg PO DAILY Qty: 30 RF: 0 Continued insulin regular hum U-500 conc [Humulin R U-500 (Conc) Insulin] 500 unit/mL solution See Rx Instructions .ROUTE .COMPLEX Qty: 20 RF: 2 multivitamin [One Daily Multivitamin] Tablet 1 tab PO QAM RF: 0 levothyroxine 88 mcg tablet 88 mcg PO QAM RF: 0 omeprazole 20 mg capsule,delayed release(DR/EC) 20 mg PO QAM RF: 0 zinc 50 mg Tablet 50 mg PO DAILY@1200 RF: 0 nitrofurantoin macrocrystal 50 mg Capsule 50 mg PO HS RF: 0 carvedilol 3.125 mg Tablet 3.125 mg PO BID RF: 0 docusate sodium 100 mg Capsule 100 mg PO BID RF: 0 nystatin 100,000 unit/gram Powder 1 applic TOPICAL BID RF: 0 Spiriva with HandiHaler 18 mcg Capsule, W/Inhalation Device 1 cap INHALATION QAM RF: 0 oxycodone 20 mg Tablet 20 mg PO QID RF: 0 cholecalciferol (vitamin D3) [Vitamin D3] 5,000 unit Tablet 5,000 unit PO WE RF: 0 cyanocobalamin (vitamin B-12) 1,000 mcg/mL Kit 1,000 mcg IM Q30D RF: 0 gabapentin 300 mg Capsule 300 mg PO TID Qty: 90 RF: 0 magnesium oxide 400 mg magnesium Capsule 400 mg PO DAILY@1200 RF: 0 ferrous sulfate 325 mg (65 mg iron) tablet 325 mg PO DAILY@1200 RF: 0 cranberry 450 mg Tablet 450 mg PO DAILY@1200 RF: 0 omega 9-key-fvt-fish oil [Fish Oil] 1,000 mg (120 mg-180 mg) Capsule 1 cap PO HS RF: 0 Cystex Plus (methenamine-vinh) 162-162.5 mg Tablet 2 tab PO DAILY PRN (Reason: UTI Relief) RF: 0 fluticasone propion-salmeterol [Wixela Inhub] 250-50 mcg/dose blister with device 1 inh inhalation BID RF: 0 Discontinued bumetanide 1 mg tablet 1 mg PO BID RF: 0 furosemide [Lasix] 40 mg Tablet 40 mg PO BID RF: 0 metformin 850 mg Tablet 850 mg PO TID RF: 0 lisinopril 5 mg tablet 5 mg PO DAILY@1200 RF: 0 Discharge Orders: Discharge Order (Routine); Ordered 10/21/19 Ordered By: Jim Hong Admission Data Admit Date/Time: 10/19/19 19:45 Attending Provider: Jim Hong Admit Provider: Padmini Dial Primary Care Provider: Robbie Yeh Other Providers: Padmini Dial ; Tomi Andino ; Afsaneh Wilkins Other Interventions: Discharge Summary Assessment (RN) Last Done: 10/21/19 10:51 DC Date/Time DO NOT enter until pt leaves facility: 10/21/19 12:42 Coding Level of Care Code D/C Day Management >30 mins Diagnoses Acute renal failure N17.9 Acute renal failure type: unspecified Hyperkalemia E87.5 Acute UTI N39.0 Hypothyroid E03.9 Hypothyroidism type: unspecified Chronic pain syndrome G89.4 Morbid obesity E66.01 Chronic indwelling Barboza catheter Z96.0 Chronic respiratory failure with hypoxia and hypercapnia J96.11; J96.12 Hypertension I10 Hypertension type: essential hypertension COPD (chronic obstructive pulmonary disease) J44.9 COPD type: unspecified COPD ZACKARY (obstructive sleep apnea) G47.33 DM II (diabetes mellitus, type II), controlled E11.29; Z79.4 Diabetes mellitus prison insulin use: with intermediate card tender use Diabetes mellitus complication status: with kidney complications Diabetes mellitus complication detail: with other kidney complication NAFLD (nonalcoholic fatty liver disease) K76.0
[2019-10-24] MEDS ORDERED: CHOLECALCIFEROL 1,000 UNITS 25 MCG TAB PO SCH (09:00)
== END 2019-10-21 12:42 | disposition home health service (06) | DRG 683 ==
LOC: ED 15:16 → 2N 19:45 → SUATTDRO 19:45 → 2N 20:11

== ENCOUNTER 2019-11-10 12:57 | Inpatient (IN) ==
[2019-11-10] MEDS ORDERED: SODIUM CHLORIDE 0.9% 500 ML IV ONE (13:17)
[2019-11-10] MEDS ORDERED: PIPERACILLIN/TAZOBACTAM 3.375 GM in DEXTROSE 5% 100 ML/100 ML BAG IV STA (13:37)
[2019-11-10] MEDS ORDERED: SODIUM CHLORIDE 0.9% 1000ML 1,000 ML IV ONE ×2 (13:37→23:10)
[2019-11-10] MEDS ORDERED: PIPERACILL/TAZOBAC CONSULT ACTIVE PRN ×2 (13:37→19:30)
[2019-11-10] MEDS ORDERED: PIPERACILLIN/TAZOBACTAM 4.5 GM/120 ML BAG IV STA (13:41)
--- NOTE | 2019-11-10 13:44 | Emergency Department Note ---
Impression & Plan Sepsis, Weakness, Altered mental status, Morbid obesity, Acute hypotension ED Provider Note NAME: PRIYA RODRIGES AGE: 64 SEX: F : 1955 ARRIVES VIA: Ambulance INFORMANT: Patient ED PROVIDER(S): Jim Patel DO CHIEF COMPLAINT: Fever and confusion HPI: Patient is a 64-year-old morbidly obese female with a chronic indwelling Garcia, fatty liver disease and persistent sores that presents the ER for fever and confusion. Patient has multiple recent admissions to [facility] over the past month and a half. She was recently flown to the [facility] system where she had dialysis for hyperkalemia. She was treated for wounds on her skin and was eventually discharged. She was placed on doxycycline for 7 days and finished them up on November 04. After the is when she started to become weaker, having chills and fevers again. Daughter notes that she has been more confused again as well. Only complaint at this time is the pain from the sores on her right gluteus and flank. Pain is an 8 out of 10. It is pretty consistent with where it has been previously. Patient denies all complaints at this time. Pt denies headache, change in vision, fevers, chest pain, shortness of breath, nausea, vomiting, diarrhea, pain with urination, and melena. ROS: See above HPI for pertinent positives & negatives. A total of 10 systems reviewed and were otherwise negative. PAST MEDICAL HISTORY:See Below PAST SURGICAL HISTORY:See Below FAMILY HISTORY:See Below SOCIAL HISTORY:See Below HOME MEDICATIONS:See Below ALLERGIES:See Below VITALS:See Below PHYSICAL EXAMINATION: GENERAL: Sitting up in bed, alert, chronically ill-appearing, morbidly obese EYE EXAM: normal conjunctiva. PERRL and EOM's grossly intact. OROPHARYNX: no exudate, no erythema, lips, buccal mucosa, and tongue normal and mucous membranes are moist NECK: supple, no nuchal rigidity, no adenopathy, non-tender LUNGS: Distant, clear to auscultation. Normal chest wall mechanics HEART: Distant, S1 normal and S2 normal ABDOMEN: abdomen soft, non-tender, normo-active bowel sounds, no masses, no rebound or guarding. SKIN: Erythema with open sores on the right gluteus. One measuring 8 x 8 cm with excoriation. No other wound just right of sacrum with skin breakdown. Does not appear to involve any muscle. UPPER EXTREMITIES: upper extremities are grossly normal. LOWER EXTREMITIES: Several small wounds on bilateral shins. Base of left heel with a vesicle filled with blood. NEURO EXAM: Normal sensorium, cranial nerves II-XII grossly intact, normal speech, moving all extremities nonfocal. MEDICAL DECISION MAKING: Patient is a 64-year-old female who is morbidly obese with multiple comorbidities with multiple recent admissions and transfers who just finished up antibiotics for right gluteal/flank skin infection. She finished them up on the and following this she started having fevers and started getting confused again per the daughter. IV was established blood work was obtained. Patient was slightly hypotensive at 96/50. Blood pressure trended back up to 130s after bolus of IV fluid. .She was febrile at 38. Blood work shows a leukocytosis of 21,000 along with a persistent anemia at 8.4. INR was unremarkable. BMP with slight elevation of creatinine 1.7. Potassium was appropriate today unlike previously. LFTs bilirubin was unremarkable. Troponin was negative. Albumin low. UA did have leukocytes and white cells along with yeast. Patient does have a chronic indwelling Garcia. Patient was given IV fluids and broad-spectrum antibiotics. Attempted to perform a CT but unable due to her obesity. She has no pain in her belly but this was to further assess the wounds. Chest x-ray was unremarkable. Discussed with the hospitalist for observation secondary to sepsis likely from skin source. She was given IV Zosyn in combination with daptomycin to cover for soft tissue infection. Triage Nursing notes reviewed. Prior medical records reviewed Vital Signs: reviewed and remarkable for febrile and hypotensive Differential diagnosis: Differential diagnosis includes etiologies such as sepsis, UTI, pneumonia, metabolic, electrolyte abnormalities, cardiac sources, intracerebral event, toxicologic, neurological, as well as others were entertained. ER treatment provided: See below Diagnostics interpreted by me: ECG: Sinus rhythm rate 89 Normal axis Terrible baseline Normal QTC No PVCs Cardiac Monitoring: An order was placed for continuous cardiac monitoring. The monitor shows a rate of 83 with sinus rhythm. Laboratory studies: As stated above and show below. Imaging studies: Portable AP upright 1 view of the chest shows no focal infiltrate with atelectasis. Consultation(s): Discussed with Dr. Annita Harrison. ED COURSE: Procedures: none Critical Care: I have personally spent 40 minutes of critical care time in the direct management of this patient. This includes bedside care, interpretation of diagnostic studies, and testing, discussion with consultants, patient, and family members, and other required patient management activities. This 40 minutes is in excess of all separately billable procedures. 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 Feels Safe at Home: Yes Smoking Status: Former smoker Tobacco Type: pipe ; packs per day: 1 ; Second Hand Exposure: No ; Hx Alcohol Use: No Hx Substance Use: No Allergies Allergies Allergy/AdvReac Type Severity Reaction Status Date / Time cephalexin [From Keflex] Allergy Mild Rash Unverified 11/10/19 15:07 Home Meds Home Medications Medication Instructions Recorded Confirmed Spiriva with HandiHaler 1 cap INHALATION QAM 11/15/18 10/19/19 carvedilol 3.125 mg PO BID 11/15/18 10/19/19 cholecalciferol (vitamin D3) 5,000 unit PO WE 11/15/18 10/19/19 [Vitamin D3] cyanocobalamin (vitamin B-12) 1,000 mcg IM Q30D 11/15/18 10/19/19 docusate sodium 100 mg PO BID 11/15/18 10/19/19 nitrofurantoin macrocrystal 50 mg PO HS 11/15/18 10/19/19 nystatin 1 applic TOPICAL BID 11/15/18 10/19/19 oxycodone 20 mg PO QID 11/15/18 10/19/19 Cystex Plus (methenamine-vinh) 2 tab PO DAILY PRN 03/09/19 10/19/19 cranberry 450 mg PO DAILY@1200 03/09/19 10/19/19 ferrous sulfate 325 mg PO DAILY@1200 03/09/19 10/19/19 fluticasone propion-salmeterol 1 inh INHALATION BID 03/09/19 10/19/19 [Wixela Inhub] magnesium oxide 400 mg PO DAILY@1200 03/09/19 10/19/19 omega 9-vbj-sgc-fish oil [Fish Oil] 1 cap PO HS 03/09/19 10/19/19 levothyroxine 88 mcg PO QAM 09/11/19 10/19/19 multivitamin [One Daily 1 tab PO QAM 09/11/19 10/19/19 Multivitamin] omeprazole 20 mg PO QAM 09/11/19 10/19/19 zinc 50 mg PO DAILY@1200 09/11/19 10/19/19 Previous Rx's Medication Instructions Recorded gabapentin 300 mg PO TID #90 cap 11/19/18 insulin regular hum U-500 conc 500 See Rx Instructions .ROUTE 04/23/19 unit/mL subcutaneous soln .COMPLEX #20 milliliter bumetanide 0.5 mg PO DAILY #30 tab 10/21/19 Results & Data (ED) Vital Signs Vital Signs - 24 hr 11/10/19 12:57 11/10/19 13:17 11/10/19 14:50 Temperature 38 C H Temperature Source Oral Pulse Rate 85 Pulse Rate [Apical] 80 Respiratory Rate 18 22 Respiratory Effort / Characteristics Non-Labored Spontaneous Respiratory Depth Normal Normal Respiratory Pattern Regular Blood Pressure 96/50 L Blood Pressure [Right Arm] 128/65 Blood Pressure Mean 65 Blood Pressure Mean [Right Arm] 86 Blood Pressure Position Lying Pulse Oximetry 92 95 95 Oxygen Delivery Method Room Air Room Air Nasal Cannula Oxygen Flow Rate 3 Sepsis Recent Fever Within 48 Hours Yes Sepsis New/Unexplained Change in Mental Status No Sepsis Action Taken by Nursing No Action Required Laboratory Data Result diagrams: 11/10/19 13:53 11/10/19 13:53 Lab Results 11/10/19 11/10/19 11/10/19 Range/Units 13:40 13:53 13:53 WBC 21.05 H (4.8-10.8) K/uL RBC 2.91 L (4.2-5.4) M/uL Hgb 8.4 L (12.0-16.0) g/dL Hct 27.6 L (37-47) % MCV 94.8 (80-100) fL MCH 28.9 (25-34) pg MCHC 30.4 L (32-36) g/dL RDW Std Deviation 55.5 H (36.4-46.3) fL RDW Coeff of Tamra 16.0 H (11.5-14.5) % Plt Count 453 H (130-400) K/uL MPV 8.5 (7.4-10.4) fL Immature Gran % (Auto) 4.9 % Neut % (Auto) 82.7 % Lymph % (Auto) 6.2 % Howell % (Auto) 5.1 % Eos % (Auto) 0.7 % Baso % (Auto) 0.4 % Immature Gran # (Auto) 1.04 H (0.00-0.02) K/uL Neut # (Auto) 17.40 H (1.4-6.5) K/uL Lymph # (Auto) 1.30 (1.2-3.4) K/uL Howell # (Auto) 1.07 H (0.11-0.59) K/uL Eos # (Auto) 0.15 (0-0.5) K/uL Baso # (Auto) 0.09 (0-0.2) K/uL PT 11.5 (9.0-12.0) Seconds INR 1.1 (0.9-1.1) APTT 24.5 (21.0-31.0) Seconds PTT Ratio 0.9 Sodium (136-145) mmol/L Potassium (3.5-5.1) mmol/L Chloride (98-107) mmol/L Carbon Dioxide (21-32) mmol/L Anion Gap (3-11) BUN (7-18) mg/dl Creatinine (0.6-1.2) mg/dl Est Cr Clr Drug Dosing ml/min Est GFR ( Amer) Est GFR (Non-Af Amer) BUN/Creatinine Ratio (10-20) Glucose (70-99) mg/dl Lactate (0.4-2.0) mmol/L Calcium (8.5-10.1) mg/dl Magnesium (1.8-2.4) mg/dl Total Bilirubin (0.2-1) mg/dl AST (15-37) U/L ALT (12-78) U/L Alkaline Phosphatase (45-117) U/L Troponin I (0-0.045) ng/ml Total Protein (6.4-8.2) gm/dl Albumin (3.4-5.0) gm/dl Globulin (2.5-4.0) gm/dl Albumin/Globulin Ratio (0.9-2) Urine Color Yellow Urine Appearance Turbid A (Clear) Urine pH 6.5 (4.5-7.5) Ur Specific Turlock 1.010 (1.000-1.030) Urine Protein Negative (Negative) Urine Glucose (UA) Negative (Negative) Urine Ketones Negative (Negative) Urine Blood 1+ H (Negative) Urine Nitrite Negative (Negative) Urine Bilirubin Negative (Negative) Urine Urobilinogen Negative (Negative) Ur Leukocyte Esterase 2+ H (Negative) Urine WBC (Auto) >30 H (0-5) /hpf Urine RBC (Auto) 0-4 (0-4) /hpf U Hyaline Cast (Auto) 0 (0-5) /lpf U Epithel Cells (Auto) >30 H (0-5) /lpf Urine Bacteria (Auto) Negative (Negative) Urine Yeast Budding w/ Hyphae A (None Prsent) Urine Sperm Not Reportable 11/10/19 11/10/19 Range/Units 13:53 13:53 WBC (4.8-10.8) K/uL RBC (4.2-5.4) M/uL Hgb (12.0-16.0) g/dL Hct (37-47) % MCV (80-100) fL MCH (25-34) pg MCHC (32-36) g/dL RDW Std Deviation (36.4-46.3) fL RDW Coeff of Tamra (11.5-14.5) % Plt Count (130-400) K/uL MPV (7.4-10.4) fL Immature Gran % (Auto) % Neut % (Auto) % Lymph % (Auto) % Howell % (Auto) % Eos % (Auto) % Baso % (Auto) % Immature Gran # (Auto) (0.00-0.02) K/uL Neut # (Auto) (1.4-6.5) K/uL Lymph # (Auto) (1.2-3.4) K/uL Howell # (Auto) (0.11-0.59) K/uL Eos # (Auto) (0-0.5) K/uL Baso # (Auto) (0-0.2) K/uL PT (9.0-12.0) Seconds INR (0.9-1.1) APTT (21.0-31.0) Seconds PTT Ratio Sodium 136 (136-145) mmol/L Potassium 4.7 (3.5-5.1) mmol/L Chloride 99 (98-107) mmol/L Carbon Dioxide 35 H (21-32) mmol/L Anion Gap 3.0 (3-11) BUN 32 H (7-18) mg/dl Creatinine 1.70 H (0.6-1.2) mg/dl Est Cr Clr Drug Dosing 54.6 ml/min Est GFR ( Amer) 36.6 Est GFR (Non-Af Amer) 31.5 BUN/Creatinine Ratio 18.6 (10-20) Glucose 86 (70-99) mg/dl Lactate 1.8 (0.4-2.0) mmol/L Calcium 9.3 (8.5-10.1) mg/dl Magnesium 1.9 (1.8-2.4) mg/dl Total Bilirubin 0.5 (0.2-1) mg/dl AST 13 L (15-37) U/L ALT 12 (12-78) U/L Alkaline Phosphatase 131 H (45-117) U/L Troponin I < 0.015 (0-0.045) ng/ml Total Protein 6.3 L (6.4-8.2) gm/dl Albumin 1.9 L (3.4-5.0) gm/dl Globulin 4.4 H (2.5-4.0) gm/dl Albumin/Globulin Ratio 0.4 L (0.9-2) Urine Color Urine Appearance (Clear) Urine pH (4.5-7.5) Ur Specific Turlock (1.000-1.030) Urine Protein (Negative) Urine Glucose (UA) (Negative) Urine Ketones (Negative) Urine Blood (Negative) Urine Nitrite (Negative) Urine Bilirubin (Negative) Urine Urobilinogen (Negative) Ur Leukocyte Esterase (Negative) Urine WBC (Auto) (0-5) /hpf Urine RBC (Auto) (0-4) /hpf U Hyaline Cast (Auto) (0-5) /lpf U Epithel Cells (Auto) (0-5) /lpf Urine Bacteria (Auto) (Negative) Urine Yeast (None Prsent) Urine Sperm Administered Medications Discontinued Medications Sodium Chloride (Nss) 500 mls @ 999 mls/hr IV .Q31M ONE Stop: 11/10/19 13:47 Last Infusion: 11/10/19 14:39 Dose: 0 mls/hr Documented by: [id number] Admin: 11/10/19 14:08 Dose: 999 mls/hr Documented by: [id number] Sodium Chloride (Nss 1000ml) 1,000 mls @ 999 mls/hr IV .Q1H1M ONE Stop: 11/10/19 14:37 Last Admin: 11/10/19 14:08 Dose: 999 mls/hr Documented by: [id number] Piperacillin Sod/Tazobactam Sod (Zosyn) 4.5 gm in 120 mls @ 240 mls/hr IV NOW STA Stop: 11/10/19 14:10 Last Infusion: 11/10/19 14:41 Dose: 0 mls/hr Documented by: [id number] Admin: 11/10/19 14:08 Dose: 240 mls/hr Documented by: [id number] Discharge Plan Visit Data Chief Complaint: Wound Stated Complaint: wound infection/buttucks ED Provider: Jim Patel Discharge Problem: Sepsis, Weakness, Altered mental status, Morbid obesity, Acute hypotension Forms Stand Alone Forms: My [facility] [employer] Prescriptions Prescriptions: No Action insulin regular hum U-500 conc [Humulin R U-500 (Conc) Insulin] 500 unit/mL solution See Rx Instructions .ROUTE .COMPLEX Qty: 20 RF: 2 levothyroxine 88 mcg tablet 88 mcg PO QAM RF: 0 omeprazole 20 mg capsule,delayed release(DR/EC) 20 mg PO QAM RF: 0 zinc 50 mg Tablet 50 mg PO DAILY@1200 RF: 0 atorvastatin 10 mg Tablet 10 mg PO HS RF: 0 ondansetron HCl 4 mg tablet 4 mg PO Q6H PRN (Reason: Nausea) RF: 0 bumetanide 1 mg tablet 1 mg PO BID RF: 0 lisinopril 5 mg tablet 5 mg PO DAILY@12 RF: 0 Calmoseptine 0.44-20.6 % Ointment 1 applic TOPICAL BID PRN (Reason: Skin Irritation) RF: 0 nitrofurantoin macrocrystal 50 mg Capsule 50 mg PO HS RF: 0 carvedilol 3.125 mg Tablet 3.125 mg PO BID RF: 0 docusate sodium 100 mg Capsule 100 mg PO BID RF: 0 nystatin 100,000 unit/gram Powder 1 applic TOPICAL BID RF: 0 Spiriva with HandiHaler 18 mcg Capsule, W/Inhalation Device 1 cap INHALATION QAM RF: 0 oxycodone 20 mg Tablet 20 mg PO QID RF: 0 cholecalciferol (vitamin D3) [Vitamin D3] 5,000 unit Tablet 5,000 unit PO WE RF: 0 cyanocobalamin (vitamin B-12) 1,000 mcg/mL Kit 1,000 mcg IM Q30D RF: 0 gabapentin 300 mg Capsule 300 mg PO TID Qty: 90 RF: 0 magnesium oxide 400 mg magnesium Capsule 400 mg PO DAILY@1200 RF: 0 ferrous sulfate 325 mg (65 mg iron) tablet 325 mg PO DAILY@1200 RF: 0 cranberry 450 mg Tablet 450 mg PO DAILY@1200 RF: 0 omega 2-xvq-dsc-fish oil [Fish Oil] 1,000 mg (120 mg-180 mg) Capsule 1 cap PO HS RF: 0 fluticasone propion-salmeterol [Wixela Inhub] 250-50 mcg/dose blister with device 1 inh inhalation BID RF: 0 Discharge Problem: Sepsis Qualifiers: Sepsis type: sepsis due to unspecified organism Sepsis acute organ dysfunction status: unspecified Qualified Code(s): A41.9 - Sepsis, unspecified organism Altered mental status Qualifiers: Altered mental status type: unspecified Qualified Code(s): R41.82 - Altered mental status, unspecified
[2019-11-10 13:55] LABS: Appearance Urine Turbid (Clear); Bacteria Urine Automated Negative (Negative); Bilirubin Urine Negative (Negative); Blood Urine 1+ (Negative); Color Urine Yellow; Epithelial Cell Urine Auto >30 /lpf (0-5); Glucose Urine UA Negative (Negative); Ketones Urine Negative (Negative); Leukocyte Esterase Urine 2+ (Negative); Nitrite Urine Negative (Negative); Protein Urine Negative (Negative); Urobilinogen Urine Negative (Negative); WBC Urine Automated >30 /hpf (0-5); pH Urine 6.5 (4.5-7.5)
[2019-11-10 14:03] LABS: Basophils # (auto) 0.09 K/uL (0-0.2); Basophils % (auto) 0.4 %; Eosinophils # (auto) 0.15 K/uL (0-0.5); Eosinophils % (auto) 0.7 %; Hematocrit (blood only) 27.6 % (37-47); Hemoglobin 8.4 g/dL (12.0-16.0); Immature Granulocytes # (auto) 1.04 K/uL (0.00-0.02); Immature Granulocytes % (auto) 4.9 %; Lymphocytes % (auto) 6.2 %; Mean Corpuscular Hemoglobin 28.9 pg (25-34); Mean Corpuscular Hgb Conc 30.4 g/dL (32-36); Mean Corpuscular Volume 94.8 fL (80-100); Mean Platelet Volume 8.5 fL (7.4-10.4); Monocytes # (auto) 1.07 K/uL (0.11-0.59); Monocytes % (auto) 5.1 %; Neutrophils % (auto) 82.7 %; Platelet Count 453 K/uL (130-400); RDW Standard Deviation 55.5 fL (36.4-46.3); Red Blood Count 2.91 M/uL (4.2-5.4); White Blood Count 21.05 K/uL (4.8-10.8)
[2019-11-10 14:08] LABS: Cast Urine Automated 0 /lpf (0-5); RBC Urine Automated 0-4 /hpf (0-4)
[2019-11-10 14:19] LABS: Albumin Level 1.9 gm/dl (3.4-5.0); Aspartate Aminotransferase 13 U/L (15-37); BUN Creatinine Ratio 18.6 (10-20); Blood Urea Nitrogen 32 mg/dl (7-18); Calcium 9.3 mg/dl (8.5-10.1); Carbon Dioxide 35 mmol/L (21-32); Chloride 99 mmol/L (98-107); Creatinine Clr Calc Pharmacy 54.6 ml/min; Est GFR (African American) 36.6; Est GFR (Non-African American) 31.5; Glucose 86 mg/dl (70-99); Magnesium 1.9 mg/dl (1.8-2.4); Potassium 4.7 mmol/L (3.5-5.1); Sodium 136 mmol/L (136-145)
[2019-11-10 14:20] LABS: INR 1.1 (0.9-1.1); Partial Thromboplastin Ratio 0.9; Partial Thromboplastin Time 24.5 Seconds (21.0-31.0); Prothrombin Time 11.5 Seconds (9.0-12.0)
[2019-11-10 14:24] LABS: Alanine Aminotransferase 12 U/L (12-78); Albumin Globulin Ratio 0.4 (0.9-2); Alkaline Phosphatase 131 U/L (45-117); Bilirubin,Total 0.5 mg/dl (0.2-1); Globulin 4.4 gm/dl (2.5-4.0); Total Protein 6.3 gm/dl (6.4-8.2); Troponin I < 0.015 ng/ml (0-0.045)
--- NOTE | 2019-11-10 14:55 | XRay Report ---
XR chest 1V portable CLINICAL HISTORY: Sepsis. COMPARISON STUDY: Chest radiograph October 19, 2019. FINDINGS: Lung volumes are within normal limits. There is no pneumothorax or pleural effusion. Note i s made of moderate cardiomegaly without evidence for pulmonary edema. Mild bibasilar opacities. IMPRESSION: 1. Mild bibasilar opacities. Atelectasis is favored however an infectious process could appear simila r. 2. Moderate cardiomegaly. No evidence for pulmonary edema. ACT 112: Negative or not required by law. Electronically signed by: Dmitriy Gomez M.D. 11/10/2019 2:53 PM
[2019-11-10] MEDS ORDERED: DAPTOmycin 400 MG in SYRINGE 0 ML IV ONE (16:00)
--- NOTE | 2019-11-10 18:16 | History & Physical Report ---
Date of Service November 10, 2019 Assessment & Plan (1) Abnormal EKG: Noted on admission Repeat WNL No s/sx c/w ACS Trop pending (2) Acute hypotension: Likely related to infections Monitor with IVF Initial EKG with poor voltage, but ST elevations noted, repeat is WNL Trop pending Monitor on tele (3) Cellulitis: Recurrent Wound HHN following at baseline finished doxy on 11/04, however worsening WCC pending Monitor on zosyn Blood cx pending (4) Acute UTI: Possibly acute, however difficult to ascertain given chronic barboza status UA + for possible bacterial and yeast infections Urine and blood cx pending Lactic acid WNL Started on zosyn in the ED, monitor Add diflucan for yeast (5) Chronic pain syndrome: continue home meds (6) Chronic indwelling Barboza catheter: Related to bed bound status Hx of recurrent UTI noted Takes nitrofurantoin for UTI proph Holding during current abx Choice of abx may need reeval given possible UTI pending cx C&S (7) Hypertension: Hold home meds due to hypoTN (8) Iron deficiency: continue home meds (9) Obesity hypoventilation syndrome: Noted (10) Anemia: Baseline is around 9 Admitted at 8.4, monitor (11) DM II (diabetes mellitus, type II), controlled: Continue home pump BS in ED 86 A1c pending (12) HLD (hyperlipidemia): continue home meds (13) Hypothyroid: continue home meds (14) DVT prophylaxis: SCDs, pt is bed bound at baseline History of Present Illness Primary Care Provider: Robbie eYh 64 y/o F c/o worsening R gluteal infection. Pt was d/c'd from [facility] on 10/20 for same dx. She completed a course of abx on 11/04. She has had HHN for home wound care throughout this time. Last visit was on Tuesday. There have been concerns from pt's family that infection is worsening again. Pt states she has increased pain the area as well. Pt denies fever, SOB, chest pain, abd pain, n/v/c/d. Pt generally has LE swelling and it is at its usual. She has been having increased b/l LE pain the last few days, which she thinks is related to positional issues related to her infection. She has been able to eat without issue. Fevers were reported by her family. Pt is not certain about this. Pt has a chronic Barboza. When asked why, she states it is because she cannot get out of bed at all. Allergies Allergy/AdvReac Type Severity Reaction Status Date / Time cephalexin [From Keflex] Allergy Mild Rash Unverified 11/10/19 15:07 Home Medications Home Medications Medication Instructions Recorded Confirmed Type Spiriva with HandiHaler 1 cap INHALATION QAM 11/15/18 11/10/19 History carvedilol 3.125 mg PO BID 11/15/18 11/10/19 History cholecalciferol (vitamin D3) 5,000 unit PO WE 11/15/18 11/10/19 History [Vitamin D3] cyanocobalamin (vitamin B-12) 1,000 mcg IM Q30D 11/15/18 11/10/19 History docusate sodium 100 mg PO BID 11/15/18 11/10/19 History nitrofurantoin macrocrystal 50 mg PO HS 11/15/18 11/10/19 History nystatin 1 applic TOPICAL BID 11/15/18 11/10/19 History oxycodone 20 mg PO QID 11/15/18 11/10/19 History gabapentin 300 mg PO TID #90 cap 11/19/18 11/10/19 Rx cranberry 450 mg PO DAILY@1200 03/09/19 11/10/19 History ferrous sulfate 325 mg PO DAILY@119903/09/19 11/10/19 History fluticasone propion-salmeterol 1 inh INHALATION BID 03/09/19 11/10/19 History [Wixela Inhub] magnesium oxide 400 mg PO DAILY@119903/09/19 11/10/19 History omega 3-jfj-efk-fish oil [Fish Oil] 1 cap PO HS 03/09/19 11/10/19 History insulin regular hum U-500 conc 500 See Rx Instructions .ROUTE 04/23/19 11/10/19 Rx unit/mL subcutaneous soln .COMPLEX #20 milliliter levothyroxine 88 mcg PO QAM 09/11/19 11/10/19 History omeprazole 20 mg PO QAM 09/11/19 11/10/19 History zinc 50 mg PO DAILY@119909/11/19 11/10/19 History atorvastatin 10 mg PO HS 11/10/19 11/10/19 History bumetanide 1 mg PO BID 11/10/19 11/10/19 History lisinopril 5 mg PO DAILY@12 11/10/19 11/10/19 History menthol-zinc oxide [Calmoseptine] 1 applic TOPICAL BID PRN 11/10/19 11/10/19 History ondansetron HCl 4 mg PO Q6H PRN 11/10/19 11/10/19 History Past Med/Surg History Medical History Chronic indwelling Barboza catheter (Chronic) Chronic pain 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 No problems noted. Social History Preferred Language: Lao Communication Ability: Effective Equipment Coordinator Required: No Beliefs That Will Affect Care: None marital status: marital status details: Current Living Situation: Spouse and Family Current Living Situation Comment: Lives with and daughter. 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 Feels Safe at Home: Yes Smoking Status: Former smoker Tobacco Type: pipe ; packs per day: 1 ; Second Hand Exposure: No ; Hx Alcohol Use: No Hx Substance Use: No Review of Systems Review of Systems: Pertinent positives and negatives reviewed in HPI--all others negative Physical Exam Constitutional: WD/WN, vitals as above Eyes: normal visual paez by confrontation and + anicteric sclerae Neck: normal visual inspection and trachea midline Respiratory: normal respiratory effort, lungs clear to auscultation Cardiovascular: Rate/Rhythm: regular rate and regular rhythm Gastrointestinal (Abdomen): Inspection/Auscultation: abdomen not distended Percussion/Palpation: abdomen soft; abdomen nontender Musculoskeletal: Head/Neck/Chest: normocephalic and head atraumatic chronic b/l LE edema, peripheral pulses intact Skin: b/l LE and UE with chronic appearing skin changes Neurologic: awake; not confused Speech / Cognition: normal speech Psychiatric: A+Ox3, euthymic affect Results & Data Results & Data ([facility]) Vital Signs (Past 12 Hours) Vital Signs Temp Pulse Pulse Resp BP BP Pulse Ox 11/10/19 17:30 89 21 96 11/10/19 17:00 90 19 99 11/10/19 16:31 87 21 100 11/10/19 16:30 87 23 96/61 L 100 11/10/19 16:00 91 H 13 11/10/19 15:30 90 20 96 11/10/19 15:01 90 20 94 11/10/19 15:00 87 19 115/88 95 11/10/19 14:50 80 22 128/65 95 11/10/19 13:17 95 11/10/19 12:57 38 C H 85 18 96/50 L 92 Diagnostic Findings CXR: bibasilar opacities, likely atelectasis ECG Rhythm: normal sinus Additional Comments: Initial EKG with poor voltage and ST elevations Code Status & VTE Plan Code Status Full code VTE Prophylaxis Plan VTE Prophylaxis will be ordered: Yes PG Care Time/CCT Total # of Minutes Spent Total Time Spent with Patient: Total time spent is greater than 50% in coordination of care (as documented) at patient's floor/unit and/or counseling patient: Coding Level of Care Code 52926 Initial Inpt Care Lvl 3 Diagnoses Abnormal EKG R94.31 Acute hypotension I95.9 Cellulitis L03.90 Site of cellulitis: unspecified site Acute UTI N39.0 Chronic pain syndrome G89.4 Chronic indwelling Barboza catheter Z96.0 Hypertension I10 Hypertension type: essential hypertension Iron deficiency E61.1 Obesity hypoventilation syndrome E66.2 Anemia D64.9 DM II (diabetes mellitus, type II), controlled E11.29; Z79.4 Diabetes mellitus snf insulin use: with snf use Diabetes mellitus complication status: with kidney complications Diabetes mellitus complication detail: with other kidney complication HLD (hyperlipidemia) E78.5 Hypothyroid E03.9 Hypothyroidism type: unspecified DVT prophylaxis Z29.9 (1) Hypothyroid Hypothyroidism type: unspecified Qualified Code(s): E03.9 - Hypothyroidism, unspecified (2) Hypertension Hypertension type: essential hypertension Qualified Code(s): I10 - Essential (primary) hypertension (3) DM II (diabetes mellitus, type II), controlled Diabetes mellitus intermediate project manager insulin use: with intermediate project manager use Diabetes mellitus complication status: with kidney complications Diabetes mellitus complication detail: with other kidney complication Qualified Code(s): E11.29 - Type 2 diabetes mellitus with other diabetic kidney complication; Z79.4 - terminal press operator (current) use of insulin (4) Cellulitis Site of cellulitis: unspecified site Qualified Code(s): L03.90 - Cellulitis, unspecified
[2019-11-10] MEDS ORDERED: GLUCOSE 40% GEL 15 GM TUBE PO PRN (19:30)
[2019-11-10] MEDS ORDERED: CARBOHYDRATES FOR HYPOGLYCEMIA PO PRN (19:30)
[2019-11-10] MEDS ORDERED: DEXTROSE 50% 50 ML SYRINGE IV PRN (19:30)
[2019-11-10] MEDS ORDERED: GLUCAGON FOR INJ 1 MG VIAL SQ PRN (19:30)
[2019-11-10] MEDS ORDERED: MENTHOL-ZINC OXIDE 360 APPLN/120 GM TUBE EXT PRN (19:30)
[2019-11-10] MEDS ORDERED: GLUCOSE 10 TABS/TUBE PO PRN (19:30)
[2019-11-10] MEDS ORDERED: PHARMACY GLYCEMIC MGMT CONSULT PRN (20:04)
[2019-11-10] MEDS: OXYCODONE HCL IR 5 MG TAB (IMMEDIATE RELEASE) PO SCH (20:23)
[2019-11-10] MEDS: DOCUSATE SODIUM 100 MG CAP PO SCH (20:25)
[2019-11-10] MEDS: BUMETANIDE 1 MG TAB PO SCH (20:25)
[2019-11-10] MEDS: ATORVASTATIN 10 MG TAB PO SCH (20:25)
[2019-11-10] MEDS: GABAPENTIN 300 MG CAP PO SCH (20:26)
[2019-11-10] MEDS: OMEGA-3 (PURIFIED FISH OIL) 1 GM CAP PO SCH (20:26)
[2019-11-10] MEDS: FLUCONAZOLE 200 MG/5 ML UDP PO SCH (20:27)
[2019-11-10] MEDS ORDERED: HumuLIN-R 500 UNITS/ML VIAL SC PRN ×2 (20:30→22:06)
[2019-11-10] MEDS: PIPERACILLIN/TAZOBACTAM 4.5 GM in DEXTROSE 5% 100 ML IV SCH (20:31)
[2019-11-10] MEDS ORDERED: INSULIN REGULAR HUMAN SCH (21:00)
[2019-11-10] MEDS ORDERED: [UNRECOGNIZED DRUG - OTHER] SCH (21:00)
[2019-11-10] MEDS: NYSTATIN POWDER 15GM BTL EXT SCH (22:53)
[2019-11-11] MEDS: SODIUM CHLORIDE 0.9% 1000ML 1,000 ML IV SCH ×2 (00:28→12:17)
[2019-11-11] MEDS: INSULIN ASPART 100 UNITS/ML 3 ML PEN SC SCH ×6 (00:29→20:46)
[2019-11-11] MEDS: PIPERACILLIN/TAZOBACTAM 4.5 GM in DEXTROSE 5% 100 ML IV SCH ×3 (03:10→20:45)
[2019-11-11] MEDS: LEVOTHYROXINE SODIUM 88 MCG TABLET PO SCH (06:07)
[2019-11-11 06:19] LABS: Basophils % (auto) 0.5 %; Eosinophils % (auto) 0.5 %; Hematocrit (blood only) 22.7 % (37-47); Immature Granulocytes # (auto) 0.84 K/uL (0.00-0.02); Lymphocytes # (auto) 1.34 K/uL (1.2-3.4); Lymphocytes % (auto) 6.4 %; Mean Corpuscular Hemoglobin 29.4 pg (25-34); Mean Corpuscular Hgb Conc 30.8 g/dL (32-36); Mean Corpuscular Volume 95.4 fL (80-100); Mean Platelet Volume 8.4 fL (7.4-10.4); Monocytes % (auto) 5.7 %; Neutrophils % (auto) 82.9 %; Platelet Count 402 K/uL (130-400); RDW Coefficient of Variation 15.9 % (11.5-14.5); RDW Standard Deviation 55.6 fL (36.4-46.3); Red Blood Count 2.38 M/uL (4.2-5.4); White Blood Count 21.08 K/uL (4.8-10.8)
[2019-11-11 06:28] LABS: Hypochromasia Present; Target Cells 1+
[2019-11-11 06:39] LABS: BUN Creatinine Ratio 17.8 (10-20); Calcium 8.6 mg/dl (8.5-10.1); Creatinine Clr Calc Pharmacy 57.3 ml/min; Est GFR (African American) 38.8; Est GFR (Non-African American) 33.4; Potassium 4.7 mmol/L (3.5-5.1)
[2019-11-11] MEDS ORDERED: [UNRECOGNIZED DRUG - OTHER] SCH ×2 (07:30)
[2019-11-11] MEDS ORDERED: INSULIN REGULAR HUMAN SCH ×2 (07:30)
[2019-11-11] MEDS: ONDANSETRON 4 MG OD TAB PO PRN (08:06)
[2019-11-11] MEDS: OXYCODONE HCL IR 5 MG TAB (IMMEDIATE RELEASE) PO SCH ×4 (08:06→21:48)
[2019-11-11] MEDS: FLUTICASONE/VILANTEROL 100/25MCG 14 PUFFS/INHALER INH SCH (08:08)
[2019-11-11] MEDS: GABAPENTIN 300 MG CAP PO SCH ×3 (08:09→21:48)
[2019-11-11] MEDS: BUMETANIDE 1 MG TAB PO SCH ×2 (08:09→18:06)
[2019-11-11] MEDS: FLUCONAZOLE 200 MG/5 ML UDP PO SCH (08:10)
[2019-11-11] MEDS: PANTOprazole 40 MG TAB PO SCH (08:10)
[2019-11-11] MEDS: DOCUSATE SODIUM 100 MG CAP PO SCH ×2 (08:10→21:47)
[2019-11-11] MEDS: UMECLIDINIUM BROMIDE 62.5MCG/BLISTER 7 PUFFS/INHALER INH SCH (08:11)
[2019-11-11] MEDS: NYSTATIN POWDER 15GM BTL EXT SCH ×2 (08:11→22:41)
[2019-11-11] MEDS: INSULIN HUMAN NPH SC SCH ×2 (09:05→17:24)
--- NOTE | 2019-11-11 10:27 | Electrocardiogram Report ---
Test Reason : Blood Pressure : / mmHG Vent. Rate : 089 BPM Atrial Rate : 089 BPM P-R Int : 172 ms QRS Dur : 082 ms QT Int : 356 ms P-R-T Axes : 042 020 067 degrees QTc Int : 433 ms Poor data quality, interpretation may be adversely affected Normal sinus rhythm Low voltage QRS Abnormal ECG When compared with ECG of 19-OCT-2019 15:30, T wave inversion no longer evident in Lateral leads Confirmed by Hang Espinosa ([id number]) on 11/11/2019 10:27:30 AM Referred By: REFERRED SELF Confirmed By:Hang Espinosa
--- NOTE | 2019-11-11 10:28 | Electrocardiogram Report ---
Test Reason : Blood Pressure : / mmHG Vent. Rate : 089 BPM Atrial Rate : 089 BPM P-R Int : 158 ms QRS Dur : 084 ms QT Int : 354 ms P-R-T Axes : 054 019 053 degrees QTc Int : 430 ms Poor data quality, interpretation may be adversely affected Normal sinus rhythm Normal ECG When compared with ECG of 10-NOV-2019 14:19, (unconfirmed) No significant change Confirmed by Hang Espinosa ([id number]) on 11/11/2019 10:27:55 AM Referred By: REFERRED SELF Confirmed By:Hang Espinosa
--- NOTE | 2019-11-11 10:52 | Pharmacy Report ---
Glycemic Control Consultation - Date of Service November 11, 2019 - Scope Scope: Glycemic Pharmacist consulted for glycemic control and to write orders per [facility] inpatient glycemic control protocol. - Objective Weight: 162.8 kg Accuchecks BSG (last 24hrs): 11/10/19 11/10/19 11/11/19 13:53 20:42 00:13 Glucose 86 POC Glucose 77 81 11/11/19 11/11/19 11/11/19 02:09 04:11 05:41 Glucose 138 H POC Glucose 81 112 H 11/11/19 07:37 Glucose POC Glucose 229 H Laboratory Data (last 24hrs): 11/10/19 11/11/19 13:53 05:41 Potassium 4.7 4.7 Carbon Dioxide 35 H 33 H Anion Gap 3.0 4.0 Creatinine 1.70 H 1.62 H Est Cr Clr Drug Dosing 54.6 57.3 - Recent Pertinent Medications Outpatient Anti-diabetic Regimen: * U500 insulin pump * A1c = 64 % 02/2019 Risk Factors for Insulin Resistance: * Infection: cellulitis/uti * Diet: T2DM - Assessment & Plan Assessment & Plan: ASSESSMENT: * Patient admitted with possible cellulitis/UTI - Type 2 diabetic managed on U- 500 insulin pump at home * Insulin pump attached on admission and set to basal settings with order for novolog if needed for elevated BSGs - BSGs controlled last evening * Pump however was disconnected accidentally overnight by nursing and pharmacy notified. Spoke with nursing and patient does not have extra tubing for insulin pump with her and they will try and follow up with daughter to see if she can bring in. Patient herself is not a good historian of pump settings and according to nurse the daughter helps out with insulin/pump settings at home * BSGs trending up this am to 229 mg/dL - appears on prior admissions NPH utilized with correctional insulin / will utilize regimen similar to other admissions PLAN FOR INPATIENT GLYCEMIC CONTROL: * Basal insulin * NPH 70-80 units BIDM * Bolus insulin * NovoLog per scale ACHS or Q6hrs while NPO * Goal Range: Low 120 mg/dL - High 160 mg/dL * Correction Factor: 5 mg/dL/unit * Nutritional / Prandial insulin per carb ratio of 1 unit per -- grams CHO consumed * Please note that the plan above was derived based on current level of insulin resistance and hospital stress. These recommendations are appropriate for inpatient admission only. Plan of care upon discharge will need to be reassessed to avoid potential outpatient hypo/hyperglycemia. Thank you.
[2019-11-11] MEDS: ACETAMINOPHEN 325 MG TAB PO PRN (11:31)
[2019-11-11] MEDS ORDERED: NON-FORMULARY MEDICATION (Cranberry Fruit [Cranberry] 450 MG) PO SCH (12:00)
[2019-11-11] MEDS: MAGNESIUM OXIDE 400 MG TAB PO SCH (12:19)
[2019-11-11] MEDS: ZINC SULFATE 220 MG CAPSULE PO SCH (12:19)
[2019-11-11] MEDS: FERROUS SULFATE 325 MG TAB PO SCH (12:20)
[2019-11-11] MEDS ORDERED: SODIUM CHLORIDE 0.9% 250 ML IV PRN (14:27)
[2019-11-11 15:20] LABS: Hematocrit (blood only) 21.2 % (37-47); Hemoglobin 6.5 g/dL (12.0-16.0)
[2019-11-11 15:36] LABS: Ferritin 217.4 ng/ml (8-388)
--- NOTE | 2019-11-11 17:56 | Surgery Consultation ---
Date of Consultation November 11, 2019 Assessment & Plan (1) Cellulitis: pt is a 64 year-old female who was admitted to hospital for sepsis, chronic ulcer of bilateral buttock, IMP: anemia, sepsis, lower back and bilateral buttock ulcer H/H 6.5, blood transfusion, NPO after MN, I recommend to do debridement lower back bilateral buttock ulcer under sedation + local tomorrow morning, D/W benefits, risks and alternatives of the surgery, the risks - infection, bleeding, sepsis, worse or unhealing ulcer, multiple organs failure, , pt understood, she agrees with the surgery, I answered all questions, nurse at bedside, (2) Sepsis: (3) Chronic ulcer of buttock: History of Present Illness Attending Physician: Guillermo Gamez History of Present Illness Primary Care Provider: Robbie Yeh 64 y/o F c/o worsening R gluteal infection. Pt was d/c'd from [facility] on 10/20 for same dx. She completed a course of abx on 11/04. She has had HHN for home wound care throughout this time. Last visit was on Tuesday. There have been concerns from pt's family that infection is worsening again. Pt states she has increased pain the area as well. Pt denies fever, SOB, chest pain, abd pain, n/v/c/d. Pt generally has LE swelling and it is at its usual. She has been having increased b/l LE pain the last few days, which she thinks is related to positional issues related to her infection. She has been able to eat without issue. Fevers were reported by her family. Pt is not certain about this. Pt has a chronic Barboza. When asked why, she states it is because she cannot get out of bed at all. I ( Luc Arce MD ) got a call for consult bilateral gluteal ulcer, I reviewed pt's H/P, labs with pt and nurse, Allergies Allergy/AdvReac Type Severity Reaction Status Date / Time cephalexin [From Keflex] Allergy Mild Rash Unverified 11/10/19 15:07 Home Medications Home Medications Medication Instructions Recorded Confirmed Type Spiriva with HandiHaler 1 cap INHALATION QAM 11/15/18 11/10/19 History carvedilol 3.125 mg PO BID 11/15/18 11/10/19 History cholecalciferol (vitamin D3) 5,000 unit PO WE 11/15/18 11/10/19 History [Vitamin D3] cyanocobalamin (vitamin B-12) 1,000 mcg IM Q30D 11/15/18 11/10/19 History docusate sodium 100 mg PO BID 11/15/18 11/10/19 History nitrofurantoin macrocrystal 50 mg PO HS 11/15/18 11/10/19 History nystatin 1 applic TOPICAL BID 11/15/18 11/10/19 History oxycodone 20 mg PO QID 11/15/18 11/10/19 History gabapentin 300 mg PO TID #90 cap 11/19/18 11/10/19 Rx cranberry 450 mg PO DAILY@1200 03/09/19 11/10/19 History ferrous sulfate 325 mg PO DAILY@1200 03/09/19 11/10/19 History fluticasone propion-salmeterol 1 inh INHALATION BID 03/09/19 11/10/19 History [Wixela Inhub] magnesium oxide 400 mg PO DAILY@1200 03/09/19 11/10/19 History omega 7-nub-asu-fish oil [Fish Oil] 1 cap PO HS 03/09/19 11/10/19 History insulin regular hum U-500 conc 500 See Rx Instructions .ROUTE 04/23/19 11/10/19 Rx unit/mL subcutaneous soln .COMPLEX #20 milliliter levothyroxine 88 mcg PO QAM 09/11/19 11/10/19 History omeprazole 20 mg PO QAM 09/11/19 11/10/19 History zinc 50 mg PO DAILY@119909/11/19 11/10/19 History atorvastatin 10 mg PO HS 11/10/19 11/10/19 History bumetanide 1 mg PO BID 11/10/19 11/10/19 History lisinopril 5 mg PO DAILY@12 11/10/19 11/10/19 History menthol-zinc oxide [Calmoseptine] 1 applic TOPICAL BID PRN 11/10/19 11/10/19 History ondansetron HCl 4 mg PO Q6H PRN 11/10/19 11/10/19 History Past Med/Surg History Medical History Chronic indwelling Barboza catheter (Chronic) Chronic pain 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 No problems noted. Social History Preferred Language: Singaporean Communication Ability: Effective Television Agent Required: No Beliefs That Will Affect Care: None marital status: marital status details: Current Living Situation: Spouse and Family Current Living Situation Comment: Lives with and daughter. 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 Feels Safe at Home: Yes Smoking Status: Former smoker Tobacco Type: pipe ; packs per day: 1 ; Second Hand Exposure: No ; Hx Alcohol Use: No Hx Substance Use: No Review of Systems Review of Systems: Pertinent positives and negatives reviewed in HPI--all others negative Allergies Allergy/AdvReac Type Severity Reaction Status Date / Time cephalexin [From Keflex] Allergy Mild Rash Unverified 11/10/19 15:07 Home Medications Home Medications Medication Instructions Recorded Confirmed Type Spiriva with HandiHaler 1 cap INHALATION QAM 11/15/18 11/10/19 History carvedilol 3.125 mg PO BID 11/15/18 11/10/19 History cholecalciferol (vitamin D3) 5,000 unit PO WE 11/15/18 11/10/19 History [Vitamin D3] cyanocobalamin (vitamin B-12) 1,000 mcg IM Q30D 11/15/18 11/10/19 History docusate sodium 100 mg PO BID 11/15/18 11/10/19 History nitrofurantoin macrocrystal 50 mg PO HS 11/15/18 11/10/19 History nystatin 1 applic TOPICAL BID 11/15/18 11/10/19 History oxycodone 20 mg PO QID 11/15/18 11/10/19 History gabapentin 300 mg PO TID #90 cap 11/19/18 11/10/19 Rx cranberry 450 mg PO DAILY@1200 03/09/19 11/10/19 History ferrous sulfate 325 mg PO DAILY@1200 03/09/19 11/10/19 History fluticasone propion-salmeterol 1 inh INHALATION BID 03/09/19 11/10/19 History [Wixela Inhub] magnesium oxide 400 mg PO DAILY@1200 03/09/19 11/10/19 History omega 1-bgd-jbp-fish oil [Fish Oil] 1 cap PO HS 03/09/19 11/10/19 History insulin regular hum U-500 conc 500 See Rx Instructions .ROUTE 04/23/19 11/10/19 Rx unit/mL subcutaneous soln .COMPLEX #20 milliliter levothyroxine 88 mcg PO QAM 09/11/19 11/10/19 History omeprazole 20 mg PO QAM 09/11/19 11/10/19 History zinc 50 mg PO DAILY@1200 09/11/19 11/10/19 History atorvastatin 10 mg PO HS 11/10/19 11/10/19 History bumetanide 1 mg PO BID 11/10/19 11/10/19 History lisinopril 5 mg PO DAILY@12 11/10/19 11/10/19 History menthol-zinc oxide [Calmoseptine] 1 applic TOPICAL BID PRN 11/10/19 11/10/19 History ondansetron HCl 4 mg PO Q6H PRN 11/10/19 11/10/19 History Patient History Medical History Chronic indwelling Barboza catheter (Chronic) Chronic pain 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 No problems noted. Social History Preferred Language: Singaporean Communication Ability: Effective Television Agent Required: No Beliefs That Will Affect Care: None marital status: marital status details: Current Living Situation: Spouse and Family Current Living Situation Comment: Lives with and daughter. 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 Other Information That Helps Us Care for You: No Feels Safe at Home: Yes Safety Concerns: Feels Safe At This Time Smoking Status: Former smoker Tobacco Type: pipe ; packs per day: 1 ; Do You Dip or Chew Tobacco: No ; Second Hand Exposure: No ; Hx Alcohol Use: No Hx Substance Use: No Review of Systems Review of Systems: All systems reviewed & are unremarkable except as noted in HPI & below Constitutional: as per Subjective / HPI Obesity Eyes: as per Subjective / HPI Ear, Nose, Mouth, Throat: as per Subjective / HPI Respiratory: as per Subjective / HPI chronic respiratory failure with hypoxia and hypercapnia, COPD Cardiovascular: as per Subjective / HPI Additional Comments: HTN, abnormal EKG Gastrointestinal: as per Subjective / HPI Genitourinary: HOLLY, chronic barboza catheter, UTI Neurologic: as per Subjective / HPI Psychiatric: as per Subjective / HPI Endocrine: DM Hematologic / Lymphatic: anemia Physical Exam Constitutional: WD/WN, vitals as above well developed and well nourished obesity Eyes: PERRL, conjunctivae normal, anicteric sclerae ENMT: external ear and nose normal, oropharynx normal Neck: trachea midline, no thyromegaly Respiratory: normal respiratory effort, lungs clear to auscultation Cardiovascular: RRR, no murmur, no edema Rate/Rhythm: regular rate and regular rhythm Gastrointestinal (Abdomen): normal bowel sounds, soft, nontender, no hepatosplenomegaly Skin: + ulcer (at lower back, size about 8x10cm redness, cellulitis around ulcer, III) bilateral gluteal ulcer, stage III, some necrotic tissue, no drainage , size 8x9cm each side, some skin cellulitis around ulcer, Neurologic: patellar DTR's 2+ bilat, sensation intact Psychiatric: Orientation: alert and oriented x 3 Results & Data Vital Signs (Past 12 Hours) Vital Signs Temp Pulse Pulse Resp BP BP BP 11/11/19 17:33 37.0 C 80 20 101/69 11/11/19 17:13 37.0 C 99 H 18 78/39 L 11/11/19 16:56 36.6 C 79 16 83/50 L 11/11/19 15:51 37.3 C 82 20 99/64 L 11/11/19 14:57 81 11/11/19 12:00 36.8 C 87 22 102/65 11/11/19 07:33 81 11/11/19 07:25 37.0 C 80 20 104/68 Pulse Ox 11/11/19 17:33 100 11/11/19 17:13 99 11/11/19 16:56 99 11/11/19 15:51 100 11/11/19 14:57 11/11/19 12:00 100 11/11/19 07:33 11/11/19 07:25 100 Laboratory Results Abnormal lab results 11/11/19 11/11/19 11/11/19 Range/Units 04:11 05:41 05:41 WBC 21.08 H (4.8-10.8) K/uL RBC 2.38 L (4.2-5.4) M/uL Hgb 7.0 L (12.0-16.0) g/dL Hct 22.7 L (37-47) % MCHC 30.8 L (32-36) g/dL RDW Std Deviation 55.6 H (36.4-46.3) fL RDW Coeff of Tamra 15.9 H (11.5-14.5) % Plt Count 402 H (130-400) K/uL Immature Gran # (Auto) 0.84 H (0.00-0.02) K/uL Neut # (Auto) 17.50 H (1.4-6.5) K/uL [place] # (Auto) 1.20 H (0.11-0.59) K/uL Carbon Dioxide 33 H (21-32) mmol/L BUN 29 H (7-18) mg/dl Creatinine 1.62 H (0.6-1.2) mg/dl Glucose 138 H (70-99) mg/dl POC Glucose 112 H (70-99) mg/dl Iron (35-150) mcg/dl TIBC (250-450) mcg/dl Crossmatch 11/11/19 11/11/19 11/11/19 Range/Units 07:37 11:53 14:56 WBC (4.8-10.8) K/uL RBC (4.2-5.4) M/uL Hgb (12.0-16.0) g/dL Hct (37-47) % MCHC (32-36) g/dL RDW Std Deviation (36.4-46.3) fL RDW Coeff of Tamra (11.5-14.5) % Plt Count (130-400) K/uL Immature Gran # (Auto) (0.00-0.02) K/uL Neut # (Auto) (1.4-6.5) K/uL [place] # (Auto) (0.11-0.59) K/uL Carbon Dioxide (21-32) mmol/L BUN (7-18) mg/dl Creatinine (0.6-1.2) mg/dl Glucose (70-99) mg/dl POC Glucose 229 H 213 H (70-99) mg/dl Iron 23 L (35-150) mcg/dl TIBC 86 L (250-450) mcg/dl Crossmatch 11/11/19 11/11/19 11/11/19 Range/Units 14:56 14:56 16:42 WBC (4.8-10.8) K/uL RBC (4.2-5.4) M/uL Hgb 6.5 L* (12.0-16.0) g/dL Hct 21.2 L (37-47) % MCHC (32-36) g/dL RDW Std Deviation (36.4-46.3) fL RDW Coeff of Tamra (11.5-14.5) % Plt Count (130-400) K/uL Immature Gran # (Auto) (0.00-0.02) K/uL Neut # (Auto) (1.4-6.5) K/uL [place] # (Auto) (0.11-0.59) K/uL Carbon Dioxide (21-32) mmol/L BUN (7-18) mg/dl Creatinine (0.6-1.2) mg/dl Glucose (70-99) mg/dl POC Glucose 221 H (70-99) mg/dl Iron (35-150) mcg/dl TIBC (250-450) mcg/dl Crossmatch See Detail (1) Cellulitis Site of cellulitis: unspecified site Qualified Code(s): L03.90 - Cellulitis, unspecified (2) Sepsis Sepsis acute organ dysfunction status: unspecified Sepsis type: sepsis due to unspecified organism Qualified Code(s): A41.9 - Sepsis, unspecified organism
[2019-11-11] MEDS: OMEGA-3 (PURIFIED FISH OIL) 1 GM CAP PO SCH (21:48)
[2019-11-11] MEDS: ATORVASTATIN 10 MG TAB PO SCH (21:48)
--- NOTE | 2019-11-11 22:30 | Hospitalist Progress Note ---
Date of Service November 11, 2019 Assessment & Plan (1) Sepsis: Patient is admitted with a sepsis picture. Tachycardia, leukocytosis of 21. Will continue zosyn; Source appears to be the decubitus ulcer patient has on her back side. I consulted general surgery as patient may require debridement. Will also consult wound care. Patient also had anemia and will transfuse 2 units of PRBC. Present on Admission?: Yes (2) Acute renal failure: Likely secondary to above problem (3) Abnormal EKG: Noted on admission Repeat WNL No s/sx c/w ACS Trop negative (4) Acute hypotension: Likely related to infection/ anemia transfused 2 units of PRBC. (5) Cellulitis: Recurrent Wound HHN following at baseline finished doxy on 11/04, however worsening WCC pending CONTINUE ZOSYN (6) Acute UTI: Possibly acute, however difficult to ascertain given chronic barboza status UA + for possible bacterial and yeast infections Urine and blood cx pending Lactic acid WNL Started on zosyn in the ED, monitor Add diflucan for yeast (7) Chronic pain syndrome: continue home meds (8) Chronic indwelling Barboza catheter: Related to bed bound status Hx of recurrent UTI noted Takes nitrofurantoin for UTI proph Holding during current abx Choice of abx may need reeval given possible UTI pending cx C&S (9) Hypertension: Hold home meds due to hypoTN (10) Iron deficiency: continue home meds (11) Obesity hypoventilation syndrome: Noted (12) Anemia: Baseline is around 9 tredned down to 6.5 Doubt GI blood loss. likely from sepsis, and hemoconcentrated. will transfuse 2 PRBC and monitor. (13) DM II (diabetes mellitus, type II), controlled: Continue home pump BS in ED 86 A1c 6.5 (14) HLD (hyperlipidemia): continue home meds (15) Hypothyroid: continue home meds (16) DVT prophylaxis: SCDs, pt is bed bound at baseline Admission and Anticipated Discharge Date Admission Date: November 10, 2019 Subjective Patient reports feeling weak and tired. Patient states she has been having generalized malaise over the course of the past week. Patinet denies any hematemesis hematoquezia, melena. Had discussion about blood transfusion and obtained consent. Called family. D/W surgery Review of Systems Constitutional: + fatigue and + malaise; no fever Eyes: no blind spots and no discharge Ear, Nose, Mouth, Throat: no ear pain and no tinnitus Respiratory: no cough and no change in sputum Cardiovascular: no chest pain and no radiating jaw, neck or arm pain Gastrointestinal: as per Subjective / HPI; no abdominal pain and no early satiety Genitourinary: no dysuria and no urinary hesitancy Musculoskeletal: no back pain Integumentary: no acne and no lesions Neurologic: no gait abnormality Psychiatric: no behavioral changes Endocrine: + fatigue; no polyphagia Hematologic / Lymphatic: no easy bleeding Physical Exam Physical Exam: Constitutional: WD/WN, vitals as above Eyes: normal visual paez by confrontation and + anicteric sclerae Neck: normal visual inspection and trachea midline Respiratory: normal respiratory effort, lungs clear to auscultation Cardiovascular: Rate/Rhythm: regular rate and regular rhythm Gastrointestinal (Abdomen): Inspection/Auscultation: abdomen not distended Percussion/Palpation: abdomen soft; abdomen nontender Musculoskeletal: Head/Neck/Chest: normocephalic and head atraumatic chronic b/l LE edema, peripheral pulses intact Skin: b/l LE and UE with chronic appearing skin changes Neurologic: awake; not confused Speech / Cognition: normal speech Psychiatric: A+Ox3, euthymic affect Results & Data Results & Data ([facility]) Vital Signs (Past 12 Hours) Vital Signs Temp Pulse Pulse Resp BP BP BP 11/11/19 21:38 37.3 C 70 16 102/61 11/11/19 21:37 37.3 C 70 16 102/61 11/11/19 20:41 36.9 C 72 20 95/56 L 11/11/19 20:11 37.2 C 73 16 100/63 11/11/19 19:58 36.7 C 69 20 99/44 L 11/11/19 19:56 36.7 C 69 16 99/44 L 11/11/19 19:37 37.5 C 70 16 89/59 L 11/11/19 19:34 37.5 C 71 20 89/59 L 11/11/19 18:30 36.7 C 75 20 99/58 L 11/11/19 18:00 36.7 C 79 22 95/57 L 11/11/19 17:33 37.0 C 80 20 101/69 11/11/19 17:13 37.0 C 99 H 18 78/39 L 11/11/19 16:56 36.6 C 79 16 83/50 L 11/11/19 15:51 37.3 C 82 20 99/64 L 11/11/19 14:57 81 11/11/19 12:00 36.8 C 87 22 102/65 Pulse Ox 11/11/19 21:38 99 11/11/19 21:37 99 11/11/19 20:41 98 11/11/19 20:11 100 11/11/19 19:58 100 11/11/19 19:56 100 11/11/19 19:37 100 11/11/19 19:34 100 11/11/19 18:30 100 11/11/19 18:00 100 11/11/19 17:33 100 11/11/19 17:13 99 11/11/19 16:56 99 11/11/19 15:51 100 11/11/19 14:57 11/11/19 12:00 100 PG Care Time/CCT Total # of Minutes Spent Total Time Spent with Patient: Total time spent is greater than 50% in coordination of care (as documented) at patient's floor/unit and/or counseling patient: Prolonged Care Time Prolonged Care Time: Yes Total Prolonged Care Time: 65 From 10:30 to 10:50 11:20 to 11:40 14:20 to 14:30 17:45 to 18:00 Coding Level of Care Code 22812 Subseq Hosp Care Lvl 3 Diagnoses Sepsis A41.9 Acute renal failure N17.9 Acute renal failure type: unspecified Abnormal EKG R94.31 Acute hypotension I95.9 Cellulitis L03.90 Site of cellulitis: unspecified site Acute UTI N39.0 Chronic pain syndrome G89.4 Chronic indwelling Barboza catheter Z96.0 Hypertension I10 Hypertension type: essential hypertension Iron deficiency E61.1 Obesity hypoventilation syndrome E66.2 Anemia D64.9 DM II (diabetes mellitus, type II), controlled E11.29; Z79.4 Diabetes mellitus complication detail: with other kidney complication Diabetes mellitus complication status: with kidney complications Diabetes mellitus nursing home insulin use: with intermediate designer use HLD (hyperlipidemia) E78.5 Hypothyroid E03.9 Hypothyroidism type: unspecified DVT prophylaxis Z29.9 Additional Codes Prolonged Care Time - Prolonged Care Time: Yes ([id number]) Time Spent (min) 65 (1) Cellulitis Site of cellulitis: unspecified site Qualified Code(s): L03.90 - Cellulitis, unspecified (2) Hypothyroid Hypothyroidism type: unspecified Qualified Code(s): E03.9 - Hypothyroidism, unspecified (3) DM II (diabetes mellitus, type II), controlled Diabetes mellitus complication detail: with other kidney complication Maylin betes mellitus complication status: with kidney complications Diabetes mellitus nursing home insulin use: with nursing home use Qualified Code(s): E11.29 - Type 2 diabetes mellitus with other diabetic kidney complication; 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
[2019-11-11 23:45] LABS: Hematocrit (blood only) 25.5 % (37-47); Mean Corpuscular Hemoglobin 28.8 pg (25-34); Mean Corpuscular Hgb Conc 31.4 g/dL (32-36); Mean Corpuscular Volume 91.7 fL (80-100); Mean Platelet Volume 8.6 fL (7.4-10.4); Platelet Count 383 K/uL (130-400); RDW Coefficient of Variation 16.9 % (11.5-14.5); RDW Standard Deviation 56.7 fL (36.4-46.3); Red Blood Count 2.78 M/uL (4.2-5.4); White Blood Count 18.86 K/uL (4.8-10.8)
[2019-11-12] MEDS: SODIUM CHLORIDE 0.9% 1000ML 1,000 ML IV SCH ×2 (00:49→12:00)
[2019-11-12] MEDS: INSULIN ASPART 100 UNITS/ML 3 ML PEN SC SCH ×6 (01:05→21:12)
[2019-11-12] MEDS: PIPERACILLIN/TAZOBACTAM 4.5 GM in DEXTROSE 5% 100 ML IV SCH ×3 (05:01→21:05)
[2019-11-12] MEDS: LEVOTHYROXINE SODIUM 88 MCG TABLET PO SCH (05:41)
[2019-11-12 05:53] LABS: Basophils # (auto) 0.11 K/uL (0-0.2); Basophils % (auto) 0.6 %; Eosinophils # (auto) 0.21 K/uL (0-0.5); Eosinophils % (auto) 1.2 %; Hematocrit (blood only) 26.7 % (37-47); Hemoglobin 8.2 g/dL (12.0-16.0); Immature Granulocytes # (auto) 0.82 K/uL (0.00-0.02); Immature Granulocytes % (auto) 4.7 %; Lymphocytes # (auto) 1.65 K/uL (1.2-3.4); Lymphocytes % (auto) 9.4 %; Mean Corpuscular Hemoglobin 28.3 pg (25-34); Mean Corpuscular Hgb Conc 30.7 g/dL (32-36); Mean Corpuscular Volume 92.1 fL (80-100); Mean Platelet Volume 8.4 fL (7.4-10.4); Monocytes # (auto) 1.06 K/uL (0.11-0.59); Neutrophils # (auto) 13.72 K/uL (1.4-6.5); Neutrophils % (auto) 78.1 %; Platelet Count 363 K/uL (130-400); RDW Coefficient of Variation 17.2 % (11.5-14.5); RDW Standard Deviation 57.1 fL (36.4-46.3); White Blood Count 17.57 K/uL (4.8-10.8)
[2019-11-12 05:53] LABS: Estimated Average Glucose 140 mg/dl; Hemoglobin A1C 6.5 % (4.5-5.6)
[2019-11-12] MEDS: MoRPHine SULFATE 2 MG/ML CARP IV PRN ×3 (06:16→23:28)
[2019-11-12 06:26] LABS: Creatinine Clr Calc Pharmacy 56.6 ml/min; Est GFR (African American) 38.8; Est GFR (Non-African American) 33.4
--- NOTE | 2019-11-12 06:58 | Anesthesiology Consultation ---
Date of Service November 12, 2019 Assessment & Plan (1) Encounter for pre-operative examination: Chart Review Chart Review: Acceptable Risk for Surgery and Patient NOT seen in Pre Admission Testing Consults Requested none ASA ASA4 Proposed Anesthesia Anesthesia Type: General History Surgery Operation Date: 11/12/19 07:00 Proposed Procedures p Debridement Lower Back Ulcer - Luc Arce MD Height/Weight Height: 5 ft 7 in Weight: 159.6 kg Allergies Allergy/AdvReac Type Severity Reaction Status Date / Time cephalexin [From Keflex] Allergy Mild Rash Unverified 11/10/19 15:07 Medications Home Medications Medication Instructions Recorded Confirmed Last Taken Spiriva with HandiHaler 1 cap INHALATION QAM 11/15/18 11/10/19 11/10/19 carvedilol 3.125 mg PO BID 11/15/18 11/10/19 11/10/19 cholecalciferol (vitamin D3) 5,000 unit PO WE 11/15/18 11/10/19 11/07/19 [Vitamin D3] cyanocobalamin (vitamin B-12) 1,000 mcg IM Q30D 11/15/18 11/10/19 08/18/19 docusate sodium 100 mg PO BID 11/15/18 11/10/19 11/10/19 nitrofurantoin macrocrystal 50 mg PO HS 11/15/18 11/10/19 11/09/19 nystatin 1 applic TOPICAL BID 11/15/18 11/10/19 11/10/19 oxycodone 20 mg PO QID 11/15/18 11/10/19 11/10/19 gabapentin 300 mg PO TID #90 cap 11/19/18 11/10/19 11/10/19 cranberry 450 mg PO DAILY@1200 03/09/19 11/10/19 11/10/19 ferrous sulfate 325 mg PO DAILY@119903/09/19 11/10/19 11/10/19 fluticasone propion-salmeterol 1 inh INHALATION BID 03/09/19 11/10/19 11/10/19 [Wixela Inhub] magnesium oxide 400 mg PO DAILY@1200 03/09/19 11/10/19 11/10/19 omega 3-igj-xdp-fish oil [Fish Oil] 1 cap PO HS 03/09/19 11/10/1920 insulin regular hum U-500 conc 500 See Rx Instructions .ROUTE 04/23/19 11/10/19 09/11/19 unit/mL subcutaneous soln .COMPLEX #20 milliliter levothyroxine 88 mcg PO QAM 09/11/19 11/10/19 11/10/19 omeprazole 20 mg PO QAM 09/11/19 11/10/19 11/10/19 zinc 50 mg PO DAILY@1200 09/11/19 11/10/19 11/10/19 atorvastatin 10 mg PO HS 11/10/19 11/10/19 11/09/19 bumetanide 1 mg PO BID 11/10/19 11/10/19 11/10/19 lisinopril 5 mg PO DAILY@12 11/10/19 11/10/19 11/10/19 menthol-zinc oxide [Calmoseptine] 1 applic TOPICAL BID PRN 11/10/19 11/10/19 11/10/19 ondansetron HCl 4 mg PO Q6H PRN 11/10/19 11/10/19 Unknown Active Medications Generic Name Dose Route Start Last Admin Trade Name Freq PRN Reason Stop Dose Admin Acetaminophen 650 mg 11/10/19 19:30 11/11/19 11:31 Tylenol PO 12/10/19 19:29 650 mg Q4H PRN Administration pain/fever Atorvastatin Calcium 10 mg 11/10/19 21:00 11/11/19 21:48 Lipitor PO 12/10/19 20:59 Not Given HS RUSS Bumetanide 1 mg 11/10/19 20:00 11/11/19 18:06 Bumex PO 12/10/19 19:59 1 mg BID17 RUSS Administration Docusate Sodium 100 mg 11/10/19 21:00 11/11/19 21:47 Colace PO 12/10/19 20:59 Not Given BID RUSS Ferrous Sulfate 325 mg 11/11/19 12:00 11/11/19 12:20 Feosol PO 12/11/19 11:59 325 mg DAILY@1200 RUSS Administration Fish Oil 1 gm 11/10/19 21:00 11/11/19 21:48 [place]-3 (Purified Fish Oil) PO 12/10/19 20:59 Not Given HS RUSS Fluconazole 200 mg 11/10/19 20:15 11/11/19 08:10 Diflucan PO 11/20/19 20:14 200 mg QAM RUSS Administration Fluticasone/Vilanterol 1 puffs 11/11/19 09:00 11/11/19 08:08 Breo Ellipta 100/25 Mcg Inh INH 12/11/19 08:59 1 puffs DAILY RUSS Administration Protocol Gabapentin 300 mg 11/10/19 21:00 11/11/19 21:48 Neurontin PO 12/10/19 20:59 Not Given TID RUSS Piperacillin Sod/Tazobactam 120 mls @ 28.75 mls/hr 11/10/19 20:00 11/12/19 05:01 Sod 4.5 gm/ Dextrose IV 11/17/19 19:59 28.8 mls/hr Q8H RUSS Administration Protocol Sodium Chloride 1,000 mls @ 80 mls/hr 11/10/19 23:15 11/12/19 00:49 Nss 1000ml IV 12/10/19 23:14 80 mls/hr .[id number] RUSS Administration Insulin Aspart 0 units 11/11/19 08:15 11/11/19 20:46 Novolog Flexpen SC 12/11/19 08:14 2 units ACHS RUSS Administration Insulin Human NPH 0 units 11/11/19 08:15 11/11/19 17:24 Novolin N Nph SC 12/11/19 08:14 80 units BIDM RUSS Administration Protocol Levothyroxine Sodium 88 mcg 11/11/19 06:30 11/12/19 05:41 Synthroid PO 12/11/19 06:29 88 mcg DAILYBB RUSS Administration Magnesium Oxide 400 mg 11/11/19 12:00 11/11/19 12:19 Mag-Ox PO 12/11/19 11:59 400 mg DAILY@1200 RUSS Administration Morphine Sulfate 1 mg 11/10/19 19:30 11/12/19 06:16 Morphine Sulfate IV 11/24/19 19:29 1 mg Q4H PRN Administration Pain Nystatin 1 appln 11/10/19 21:00 11/11/19 22:41 Mycostatin EXT 12/10/19 20:59 1 appln BID RUSS Administration Ondansetron HCl 4 mg 11/10/19 19:30 11/11/19 08:06 Zofran Odt PO 4 mg Q6H PRN Administration Nausea Oxycodone HCl 20 mg 11/10/19 21:00 11/11/19 21:48 Roxicodone Immediate Rel PO 11/24/19 20:59 Not Given QID RUSS Pantoprazole Sodium 40 mg 11/11/19 09:00 11/11/19 08:10 Protonix PO 12/11/19 08:59 40 mg QAM RUSS Administration Umeclidinium Pedro 1 puffs 11/11/19 09:00 11/11/19 08:11 Incruse Ellipta INH 12/11/19 08:59 1 puffs DAILY RUSS Administration Zinc Sulfate 220 mg 11/11/19 12:00 11/11/19 12:19 Zinc Sulfate PO 12/11/19 11:59 220 mg DAILY@1200 RUSS Administration Past Medical History Medical History 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; takes chronic opiates Chronic respiratory failure with hypoxia and hypercapnia (Chronic) on home o2, 3 L continuously COPD (chronic obstructive pulmonary disease) (Chronic) DM II (diabetes mellitus, type II), controlled (Chronic) HLD (hyperlipidemia) (Chronic) HTN (hypertension) (Chronic) Morbid obesity with BMI of 60.0-69.9, adult NAFLD (nonalcoholic fatty liver disease) Obesity hypoventilation syndrome (Chronic) Psoriasis (Chronic) Recurrent UTI (urinary tract infection) Exercise / Class Metabolic Activity IV < 2 Limit ADL/Bedbound Past Family History Family History Father Lung disease Mother , some form of uterine disease? No problems noted. Past Surgical History Surgical History Surgical history unknown Social History Smoking Status: Former smoker tobacco type: pipe Do You Dip or Chew Tobacco: No Hx Alcohol Use: No Hx Substance Use: No substance use type: does not use Physical Exam Vital Signs Last Vital Signs Temp 37.4 C 11/12/19 03:00 Pulse 68 11/12/19 03:00 Resp 20 11/12/19 03:00 BP 121/56 L 11/12/19 03:00 Pulse Ox 96 11/12/19 03:00 Testing Laboratory Results 11/12/19 05:39 11/12/19 05:39 PT 11.5 Seconds (9.0-12.0) 11/10/19 13:53 INR 1.1 (0.9-1.1) 11/10/19 13:53 APTT 24.5 Seconds (21.0-31.0) 11/10/19 13:53 Hemoglobin A1c 6.5 % (4.5-5.6) H 11/11/19 05:41 Urine Color Yellow 11/10/19 13:40 Urine Appearance Turbid (Clear) A 11/10/19 13:40 Urine pH 6.5 (4.5-7.5) 11/10/19 13:40 Ur Specific [place] 1.010 (1.000-1.030) 11/10/19 13:40 Urine Protein Negative (Negative) 11/10/19 13:40 Urine Glucose (UA) Negative (Negative) 11/10/19 13:40 Urine Ketones Negative (Negative) 11/10/19 13:40 Urine Nitrite Negative (Negative) 11/10/19 13:40 Ur Leukocyte Esterase 2+ (Negative) H 11/10/19 13:40 Urine WBC (Auto) >30 /hpf (0-5) H 11/10/19 13:40 Urine RBC (Auto) 0-4 /hpf (0-4) 11/10/19 13:40 U Hyaline Cast (Auto) 0 /lpf (0-5) 11/10/19 13:40 U Epithel Cells (Auto) >30 /lpf (0-5) H 11/10/19 13:40 Urine Bacteria (Auto) Negative (Negative) 11/10/19 13:40 Blood Type O Positive 11/11/19 14:56 Antibody Screen NEGATIVE 11/11/19 14:56 11/10/19 13:53 Aerobic Blood Culture - Preliminary Blood No growth in Aerobic bottle after 24 hours. Anaerobic Blood Culture - Final 11/10/19 13:53 Aerobic Blood Culture - Preliminary Blood No growth in Aerobic bottle after 24 hours. Anaerobic Blood Culture - Preliminary No growth in Anaerobic bottle after 24 hours. 11/10/19 13:40 Urine Culture - Preliminary Urine,Clean Catch Pin-point growth present, reincubating. 11/12/19 11/12/19 11/11/19 04:32 00:12 20:20 POC Glucose 96 120 H 166 H troponins neg x 2 Electrocardiogram Date: 11/10/19 Findings: + NSR @ (89) Chest X-Ray Date: 11/10/19 1. Mild bibasilar opacities. Atelectasis is favored however an infectious process could appear similar. 2. Moderate cardiomegaly. No evidence for pulmonary edema.
[2019-11-12] MEDS ORDERED: INSULIN HUMAN NPH SC ONE (08:00)
[2019-11-12] MEDS: NYSTATIN POWDER 15GM BTL EXT SCH ×2 (08:47→21:11)
[2019-11-12] MEDS: UMECLIDINIUM BROMIDE 62.5MCG/BLISTER 7 PUFFS/INHALER INH SCH (08:47)
[2019-11-12] MEDS: BUMETANIDE 1 MG TAB PO SCH ×2 (08:47→16:29)
[2019-11-12] MEDS: FLUTICASONE/VILANTEROL 100/25MCG 14 PUFFS/INHALER INH SCH (08:48)
--- NOTE | 2019-11-12 09:17 | Surgery Progress Note ---
Date of Service pt said she feels better, WBC down to 17,000, pt wants to cancel her surgery for debridement ulcer, November 12, 2019 Assessment & Plan (1) Cellulitis: pt is a 64 year-old female who was admitted to hospital for sepsis, chronic ulcer of bilateral buttock, IMP: anemia, sepsis, lower back and bilateral buttock ulcer H/H 6.5/21, blood transfusion, NPO after MN, I recommend to do debridement lower back bilateral buttock ulcer under sedation + local tomorrow morning, D/W luke efits, risks and alternatives of the surgery, the risks - infection, bleeding, sepsis, worse or unhealing ulcer, multiple organs failure, , pt understood, she agrees with the surgery, I answered all questions, nurse at bedside, 11/12/2019 9:15am I D/W benefits, risks and alternatives of debridement bilateral buttock ulcer, but pt wants to cancel her surgery, pt wants to wait 1-2 days, the surgery is cancelled , will F/U (2) Sepsis: (3) Chronic ulcer of buttock: Review of Systems Constitutional: as per Subjective / HPI Obesity Eyes: as per Subjective / HPI Ear, Nose, Mouth, Throat: as per Subjective / HPI Respiratory: as per Subjective / HPI chronic respiratory failure with hypoxia and hypercapnia, COPD Cardiovascular: as per Subjective / HPI Additional Comments: HTN, abnormal EKG Gastrointestinal: as per Subjective / HPI Genitourinary: HOLLY, chronic barboza catheter, UTI Neurologic: as per Subjective / HPI Psychiatric: as per Subjective / HPI Endocrine: DM Hematologic / Lymphatic: anemia Physical Exam Constitutional: WD/WN, vitals as above well developed and well nourished Eyes: PERRL, conjunctivae normal, anicteric sclerae ENMT: external ear and nose normal, oropharynx normal Neck: trachea midline, no thyromegaly Respiratory: normal respiratory effort, lungs clear to auscultation Cardiovascular: RRR, no murmur, no edema Rate/Rhythm: regular rate and regular rhythm Gastrointestinal (Abdomen): normal bowel sounds, soft, nontender, no hepatosplenomegaly Skin: + ulcer (at lower back, size about 8x10cm redness, cellulitis around ulcer, III) Neurologic: patellar DTR's 2+ bilat, sensation intact Psychiatric: Orientation: alert and oriented x 3 Results & Data Vital Signs (Past 12 Hours) Vital Signs Temp Pulse Pulse Resp BP BP Pulse Ox 11/12/19 07:43 91 H 11/12/19 07:00 36.9 C 87 20 91/47 L 98 11/12/19 03:00 37.4 C 68 20 121/56 L 96 11/12/19 00:15 76 11/11/19 23:34 36.9 C 71 18 102/61 100 11/11/19 21:38 37.3 C 70 16 102/61 99 11/11/19 21:37 37.3 C 70 16 102/61 99 (1) Cellulitis Site of cellulitis: unspecified site Qualified Code(s): L03.90 - Cellulitis, unspecified (2) Sepsis Sepsis acute organ dysfunction status: unspecified Sepsis type: sepsis due to unspecified organism Qualified Code(s): A41.9 - Sepsis, unspecified organism
[2019-11-12] MEDS: FLUCONAZOLE 200 MG/5 ML UDP PO SCH (09:46)
[2019-11-12] MEDS: PANTOprazole 40 MG TAB PO SCH (09:47)
[2019-11-12] MEDS: GABAPENTIN 300 MG CAP PO SCH ×3 (09:47→21:11)
[2019-11-12] MEDS: DOCUSATE SODIUM 100 MG CAP PO SCH ×2 (09:48→21:10)
--- NOTE | 2019-11-12 09:55 | Pharmacy Report ---
Pharmacy Glycemic Short Note 2 - Date of Service November 12, 2019 - Glycemic Short BSG Results (Last 24 hours): 11/11/19 11/11/19 11/11/19 11:53 16:42 20:20 POC Glucose 213 H 221 H 166 H 11/12/19 11/12/19 11/12/19 00:12 04:32 07:24 POC Glucose 120 H 96 102 H OUTPATIENT ANTIDIABETIC REGIMEN: * U500 insulin pump * A1c = 6.5% on 11/11/2019 ASSESSMENT: 11/11: * Patient received a total of 199 units of insulin yesterday, 160 basal + 39 bolus * BSGs ranged 120-229 mg/dL * BSG this AM was 102 mg/dL, well controlled * Patient was made NPO yesterday for debridement of sacral ulcer this AM. Initially, I had decreased her AM NPH dose by 50% to account for her not eating; however, patient has since refused this procedure. Spoke with RN and patient had already received 35 units NPH this AM. Expect BSGs to rise throughout the day secondary to this. 11/10: * Patient admitted with possible cellulitis/UTI - Type 2 diabetic managed on U- 500 insulin pump at home * Insulin pump attached on admission and set to basal settings with order for novolog if needed for elevated BSGs - BSGs controlled last evening * Pump however was disconnected accidentally overnight by nursing and pharmacy notified. Spoke with nursing and patient does not have extra tubing for insulin pump with her and they will try and follow up with daughter to see if she can bring in. Patient herself is not a good historian of pump settings and according to nurse the daughter helps out with insulin/pump settings at home * BSGs trending up this am to 229 mg/dL - appears on prior admissions NPH utilized with correctional insulin / will utilize regimen similar to other admissions PLAN FOR INPATIENT GLYCEMIC CONTROL: * Basal insulin * NPH 35 units SQ x 1 this AM * NPH 70-80 units SQ BIDM - see eMAR for further details * Bolus insulin * NovoLog per scale ACHS or Q6hrs while NPO * Goal Range: Low 120 mg/dL - High 160 mg/dL * Correction Factor: 5 mg/dL/unit * No carb coverage PLAN FOR DISCHARGE: * Continue U-500 insulin pump upon patient discharge.
[2019-11-12] MEDS: OXYCODONE HCL IR 5 MG TAB (IMMEDIATE RELEASE) PO SCH ×4 (09:56→21:10)
[2019-11-12] MEDS: FERROUS SULFATE 325 MG TAB PO SCH (11:59)
[2019-11-12] MEDS: MAGNESIUM OXIDE 400 MG TAB PO SCH (11:59)
[2019-11-12] MEDS: ZINC SULFATE 220 MG CAPSULE PO SCH (11:59)
[2019-11-12] MEDS: INSULIN HUMAN NPH SC SCH (17:19)
[2019-11-12] MEDS: ATORVASTATIN 10 MG TAB PO SCH (21:10)
[2019-11-12] MEDS: OMEGA-3 (PURIFIED FISH OIL) 1 GM CAP PO SCH (21:12)
--- NOTE | 2019-11-12 22:50 | Hospitalist Progress Note ---
Date of Service November 12, 2019 Assessment & Plan (1) Sepsis: Patient is admitted with a sepsis picture. Tachycardia, leukocytosis of 21 on admision. Tredning down to 17. Will continue zosyn; Source appears to be the decubitus ulcer patient has on her back side. I consulted general surgery as patient may require debridement. Will also consult wound care. Wound care provider will see patient on 11/12) Patient also had anemia andl transfused 2 units of PRBC (done on 11/10). (2) Acute renal failure: Likely secondary to above problem (3) Abnormal EKG: Noted on admission Repeat WNL No s/sx c/w ACS Trop negative (4) Acute hypotension: Likely related to infection/ anemia transfused 2 units of PRBC. (5) Cellulitis: Pressure ulcer of right & left buttock, stage unstageable, left heel, stage unstageable, and left lower lateral leg, stage unstageable. Recurrent Wound HHN following at baseline finished doxy on 11/04, however worsening CONTINUE ZOSYN (6) Acute UTI: Possibly acute, however difficult to ascertain given chronic barboza status UA + for possible bacterial and yeast infections Urine and blood cx pending Lactic acid WNL Started on zosyn in the ED, monitor Add diflucan for yeast (7) Chronic pain syndrome: continue home meds (8) Chronic indwelling Barboza catheter: Related to bed bound status Hx of recurrent UTI noted Takes nitrofurantoin for UTI proph Holding during current abx Do not belive this to be the main problem as ulcers appear infected. (9) Hypertension: Hold home meds due to hypoTN (10) Iron deficiency: continue home meds (11) Obesity hypoventilation syndrome: Noted (12) Anemia: Baseline is around 9 tredned down to 6.5 Doubt GI blood loss. likely from sepsis, and hemoconcentrated. will transfuse 2 PRBC and monitor. (13) DM II (diabetes mellitus, type II), controlled: Continue home pump BS in ED 86 A1c 6.5 (14) HLD (hyperlipidemia): continue home meds (15) Hypothyroid: continue home meds (16) DVT prophylaxis: SCDs, pt is bed bound at baseline Admission and Anticipated Discharge Date Admission Date: November 10, 2019 Subjective Patient continues to have fatigue and generalized weakness. Patient reports that she is now interested in have her wound "cleaned". She had refused her procedure by Dr. Arce earlier today. Review of Systems Review of Systems: All systems reviewed & are unremarkable except as noted in HPI & below Physical Exam Physical Exam: Constitutional: WD/WN, vitals as above Eyes: normal visual paez by confrontation and + anicteric sclerae Neck: normal visual inspection and trachea midline Respiratory: normal respiratory effort, lungs clear to auscultation Cardiovascular: Rate/Rhythm: regular rate and regular rhythm Gastrointestinal (Abdomen): Inspection/Auscultation: abdomen not distended Percussion/Palpation: abdomen soft; abdomen nontender Musculoskeletal: Head/Neck/Chest: normocephalic and head atraumatic chronic b/l LE (+3) edema, peripheral pulses intact Skin: b/l LE and UE with chronic appearing skin changes Neurologic: awake; not confused Speech / Cognition: normal speech Psychiatric: A+Ox3, euthymic affect Results & Data Results & Data ([facility]) Vital Signs (Past 12 Hours) Vital Signs Temp Pulse Pulse Resp BP Pulse Ox 11/12/19 22:47 37.3 C 88 20 100/65 97 11/12/19 19:22 37.2 C 80 18 89/44 L 99 11/12/19 18:07 94 H 11/12/19 15:36 36.7 C 80 18 101/67 98 11/12/19 12:33 36.9 C 82 93/58 L 98 PG Care Time/CCT Total # of Minutes Spent Total Time Spent with Patient: Total time spent is greater than 50% in coordination of care (as documented) at patient's floor/unit and/or counseling patient: Coding Level of Care Code 70177 Subseq Hosp Care Lvl 3 Diagnoses Sepsis A41.9 Acute renal failure N17.9 Acute renal failure type: unspecified Abnormal EKG R94.31 Acute hypotension I95.9 Cellulitis L03.90 Site of cellulitis: unspecified site Acute UTI N39.0 Chronic pain syndrome G89.4 Chronic indwelling Barboza catheter Z96.0 Hypertension I10 Hypertension type: essential hypertension Iron deficiency E61.1 Obesity hypoventilation syndrome E66.2 Anemia D64.9 DM II (diabetes mellitus, type II), controlled E11.29; Z79.4 Diabetes mellitus complication detail: with other kidney complication Diabetes mellitus complication status: with kidney complications Diabetes mellitus nursing home insulin use: with nursing home use HLD (hyperlipidemia) E78.5 Hypothyroid E03.9 Hypothyroidism type: unspecified DVT prophylaxis Z29.9 Time Spent (min) 35 (1) Acute renal failure Acute renal failure type: unspecified Qualified Code(s): N17.9 - Acute kidney failure, unspecified (2) Cellulitis Site of cellulitis: unspecified site Qualified Code(s): L03.90 - Cellulitis, unspecified (3) Hypothyroid Hypothyroidism type: unspecified Qualified Code(s): E03.9 - Hypothyroidism, unspecified (4) DM II (diabetes mellitus, type II), controlled Diabetes mellitus complication detail: with other kidney complication Diabetes mellitus complication status: with kidney complications Diabetes mellitus nursing home insulin use: with nursing home use Qualified Code(s): E11.29 - Type 2 diabetes mellitus with other diabetic kidney complication; Z79.4 - terminologist (current) use of insulin (5) Hypertension Hypertension type: essential hypertension Qualified Code(s): I10 - Essential (primary) hypertension
[2019-11-13] MEDS: SODIUM CHLORIDE 0.9% 1000ML 1,000 ML IV SCH ×2 (01:15→13:16)
[2019-11-13] MEDS: PIPERACILLIN/TAZOBACTAM 4.5 GM in DEXTROSE 5% 100 ML IV SCH ×3 (04:18→20:08)
[2019-11-13] MEDS: LEVOTHYROXINE SODIUM 88 MCG TABLET PO SCH (06:20)
[2019-11-13 06:37] LABS: Basophils # (auto) 0.07 K/uL (0-0.2); Basophils % (auto) 0.5 %; Eosinophils # (auto) 0.22 K/uL (0-0.5); Eosinophils % (auto) 1.6 %; Hematocrit (blood only) 25.2 % (37-47); Hemoglobin 7.8 g/dL (12.0-16.0); Immature Granulocytes # (auto) 0.68 K/uL (0.00-0.02); Immature Granulocytes % (auto) 4.9 %; Lymphocytes % (auto) 11.5 %; Mean Corpuscular Hemoglobin 28.9 pg (25-34); Mean Corpuscular Volume 93.3 fL (80-100); Mean Platelet Volume 8.6 fL (7.4-10.4); Monocytes # (auto) 0.93 K/uL (0.11-0.59); Monocytes % (auto) 6.7 %; Neutrophils # (auto) 10.38 K/uL (1.4-6.5); Neutrophils % (auto) 74.8 %; Platelet Count 363 K/uL (130-400); RDW Coefficient of Variation 17.1 % (11.5-14.5); RDW Standard Deviation 57.9 fL (36.4-46.3); White Blood Count 13.88 K/uL (4.8-10.8)
[2019-11-13 06:59] LABS: RBC Morphology Unremarkable
[2019-11-13 07:09] LABS: Creatinine Clr Calc Pharmacy 64.4 ml/min; Est GFR (African American) 44.7; Est GFR (Non-African American) 38.6
[2019-11-13] MEDS: GABAPENTIN 300 MG CAP PO SCH ×3 (08:59→20:08)
[2019-11-13] MEDS: BUMETANIDE 1 MG TAB PO SCH ×2 (08:59→17:45)
[2019-11-13] MEDS: FLUCONAZOLE 100 MG TAB PO SCH (09:00)
[2019-11-13] MEDS: FLUTICASONE/VILANTEROL 100/25MCG 14 PUFFS/INHALER INH SCH (09:00)
[2019-11-13] MEDS: PANTOprazole 40 MG TAB PO SCH (09:01)
[2019-11-13] MEDS: UMECLIDINIUM BROMIDE 62.5MCG/BLISTER 7 PUFFS/INHALER INH SCH (09:01)
[2019-11-13] MEDS: NYSTATIN POWDER 15GM BTL EXT SCH ×2 (09:03→20:19)
[2019-11-13] MEDS: INSULIN HUMAN NPH SC SCH ×2 (09:03→17:52)
[2019-11-13] MEDS: INSULIN ASPART 100 UNITS/ML 3 ML PEN SC SCH ×4 (09:03→20:53)
[2019-11-13] MEDS: OXYCODONE HCL IR 5 MG TAB (IMMEDIATE RELEASE) PO SCH ×4 (09:10→20:53)
[2019-11-13] MEDS: DOCUSATE SODIUM 100 MG CAP PO SCH ×2 (09:10→20:53)
[2019-11-13] MEDS: ONDANSETRON 4 MG OD TAB PO PRN (09:10)
[2019-11-13] MEDS: MAGNESIUM OXIDE 400 MG TAB PO SCH (13:15)
[2019-11-13] MEDS: ZINC SULFATE 220 MG CAPSULE PO SCH (13:16)
[2019-11-13] MEDS: FERROUS SULFATE 325 MG TAB PO SCH (13:16)
--- NOTE | 2019-11-13 13:59 | Wound Consultation ---
Date of Consultation November 13, 2019 Assessment & Plan (1) Deep tissue injury: Patient with deep tissue injuries of bilateral legs. Would not tolerate debridement at this time secondary to pain. Wounds of the legs to be dressed with Aquacel Ag and OPTi foam every other day as needed. Her left heel will be painted with Betadine daily. After surgery could consider wound VAC on the sacral wound. Patient refused to let me see the sacral wound at this time. We will continue to follow. Thank you for allowing participate in the care of this patient. Please not hesitate to call with any questions. History of Present Illness Reason for Consultation: Numerous deep tissue injuries Attending Physician: Jim Hong DO History of Present Illness This is a 64-year-old female with worsening right gluteal infection was discharged [facility] on October 20 for the same. Patient has completed antibiotics and has had home health nursing but has not improved. Patient also has numerous deep tissue injuries on bilateral lower extremities. Patient is chronically bedbound and has a chronic Garcia, hypothyroid, hyperlipidemia, type 2 diabetes, anemia, obesity hypoventilation syndrome, iron deficiency, hypertension, chronic pain and ambulatory dysfunction. At this time Dr. Arce is planning on taking her for debridement of the sacral wound tomorrow. I am seeing the patient for the wounds on her legs. Would consider wound VAC on the sacral wound after surgery. Allergies Allergy/AdvReac Type Severity Reaction Status Date / Time cephalexin [From Keflex] Allergy Mild Rash Unverified 11/10/19 15:07 Home Medications Home Medications Medication Instructions Recorded Confirmed Type Spiriva with HandiHaler 1 cap INHALATION QAM 11/15/18 11/10/19 History carvedilol 3.125 mg PO BID 11/15/18 11/10/19 History cholecalciferol (vitamin D3) 5,000 unit PO WE 11/15/18 11/10/19 History [Vitamin D3] cyanocobalamin (vitamin B-12) 1,000 mcg IM Q30D 11/15/18 11/10/19 History docusate sodium 100 mg PO BID 11/15/18 11/10/19 History nitrofurantoin macrocrystal 50 mg PO HS 11/15/18 11/10/19 History nystatin 1 applic TOPICAL BID 11/15/18 11/10/19 History oxycodone 20 mg PO QID 11/15/18 11/10/19 History gabapentin 300 mg PO TID #90 cap 11/19/18 11/10/19 Rx cranberry 450 mg PO DAILY@1200 03/09/19 11/10/19 History ferrous sulfate 325 mg PO DAILY@1200 03/09/19 11/10/19 History fluticasone propion-salmeterol 1 inh INHALATION BID 03/09/19 11/10/19 History [Wixela Inhub] magnesium oxide 400 mg PO DAILY@1200 03/09/19 11/10/19 History omega 1-hwh-azp-fish oil [Fish Oil] 1 cap PO HS 03/09/19 11/10/19 History insulin regular hum U-500 conc 500 See Rx Instructions .ROUTE 04/23/19 11/10/19 Rx unit/mL subcutaneous soln .COMPLEX #20 milliliter levothyroxine 88 mcg PO QAM 09/11/19 11/10/19 History omeprazole 20 mg PO QAM 09/11/19 11/10/19 History zinc 50 mg PO DAILY@119909/11/19 11/10/19 History atorvastatin 10 mg PO HS 11/10/19 11/10/19 History bumetanide 1 mg PO BID 11/10/19 11/10/19 History lisinopril 5 mg PO DAILY@12 11/10/19 11/10/19 History menthol-zinc oxide [Calmoseptine] 1 applic TOPICAL BID PRN 11/10/19 11/10/19 History ondansetron HCl 4 mg PO Q6H PRN 11/10/19 11/10/19 History Patient History Medical History (Updated 11/21/19 @ 09:31 by Eugenio Hathaway, DO) Acute hypotension (Inactive) Acute renal failure (Inactive) Acute UTI (Inactive) Anemia transfused 2 units pRBCs on 11/11/2019. 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; takes chronic opiates Chronic respiratory failure with hypoxia and hypercapnia (Chronic) on home o2, 3 L continuously Chronic ulcer of buttock COPD (chronic obstructive pulmonary disease) (Chronic) DM II (diabetes mellitus, type II), controlled (Chronic) insulin pump HLD (hyperlipidemia) (Chronic) HTN (hypertension) (Chronic) Hypothyroid Morbid obesity with BMI of 60.0-69.9, adult NAFLD (nonalcoholic fatty liver disease) Obesity hypoventilation syndrome (Chronic) Psoriasis (Chronic) Recurrent UTI (urinary tract infection) Sepsis (Inactive) Surgical History Surgical history unknown Family History Father Lung disease Mother , some form of uterine disease? No problems noted. Social History Preferred Language: Welsh Communication Ability: Effective Civil Litigation Attorney Required: No Beliefs That Will Affect Care: None marital status: marital status details: Current Living Situation: Spouse and Family Current Living Situation Comment: Lives with and daughter. 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 Left heel with black eschar. Legs with eschar and open area. All is unstageable. Patient unable to tolerate debridement at this time. Neurologic: awake; not confused Psychiatric: A+Ox3, euthymic affect Results & Data Vital Signs (Past 12 Hours) Vital Signs Temp Pulse Pulse Resp BP Pulse Ox 11/13/19 11:45 37 C 82 18 101/64 99 11/13/19 07:50 36.9 C 81 18 97/55 L 97 11/13/19 07:15 75 11/13/19 04:03 36.8 C 74 16 93/58 L 100 11/13/19 02:30 87 PG Care Time/CCT Total # of Minutes Spent Total Time Spent with Patient: Total time spent is greater than 50% in coordination of care (as documented) at patient's floor/unit and/or counseling patient: Coding Level of Care Code 63318 Inpt Consult Level 3 Diagnoses Deep tissue injury T14.8XXA
--- NOTE | 2019-11-13 14:19 | Surgery Progress Note ---
Date of Service November 13, 2019 Patient admitted with sepsis and has been noted to have buttock and sacral decubiti The plan was for debridement yesterday but she refused surgery yesterday. She continues to have pain although it is unchanged. She is now hemodynamically stable Assessment & Plan (1) Chronic ulcer of buttock: She has sacral and buttock decubiti. There is eschar in all of that. I have again recommended that she have surgical debridement if it is safe from an anesthesia standpoint. I discussed this with anesthesia department and they are going to evaluate for type of anesthesia. Because of the skin breakdown along her lower back I am not sure that spine will be an option. Patient was concerned about having a general anesthesia. I think this is so extensive that I am not sure the local with sedation would be an option although we could attempt that. She does have difficulty laying on her abdomen. Will await the anesthesia evaluation. Physical Exam Physical Exam: On her back and buttock there are multiple areas of skin breakdown. There are decubiti over the sacral area but there is also skin disruption superior to that along her lower back. She has ulcers of her heels as well. Results & Data Vital Signs (Past 12 Hours) Vital Signs Temp Pulse Pulse Resp BP Pulse Ox 11/13/19 11:45 37 C 82 18 101/64 99 11/13/19 07:50 36.9 C 81 18 97/55 L 97 11/13/19 07:15 75 11/13/19 04:03 36.8 C 74 16 93/58 L 100 11/13/19 02:30 87 Laboratory Results 11/13/19 11/13/19 11/13/19 Range/Units 11:33 07:41 06:04 WBC 13.88 H (4.8-10.8) K/uL RBC 2.70 L (4.2-5.4) M/uL Hgb 7.8 L (12.0-16.0) g/dL Hct 25.2 L (37-47) % MCV 93.3 (80-100) fL MCH 28.9 (25-34) pg MCHC 31.0 L (32-36) g/dL RDW Std Deviation 57.9 H (36.4-46.3) fL RDW Coeff of Tamra 17.1 H (11.5-14.5) % Plt Count 363 (130-400) K/uL MPV 8.6 (7.4-10.4) fL Immature Gran % (Auto) 4.9 % Neut % (Auto) 74.8 % Lymph % (Auto) 11.5 % [place] % (Auto) 6.7 % Eos % (Auto) 1.6 % Baso % (Auto) 0.5 % Immature Gran # (Auto) 0.68 H (0.00-0.02) K/uL Neut # (Auto) 10.38 H (1.4-6.5) K/uL Lymph # (Auto) 1.60 (1.2-3.4) K/uL [place] # (Auto) 0.93 H (0.11-0.59) K/uL Eos # (Auto) 0.22 (0-0.5) K/uL Baso # (Auto) 0.07 (0-0.2) K/uL RBC Morphology Unremarkable Creatinine (0.6-1.2) mg/dl Est Cr Clr Drug Dosing ml/min Est GFR ( Amer) Est GFR (Non-Af Amer) POC Glucose 179 H 147 H (70-99) mg/dl Bld Cult Staph aureus PCR (Negative) Blood Culture MRSA PCR (Negative) 11/13/19 11/13/19 11/12/19 Range/Units 06:04 06:02 20:15 WBC (4.8-10.8) K/uL RBC (4.2-5.4) M/uL Hgb (12.0-16.0) g/dL Hct (37-47) % MCV (80-100) fL MCH (25-34) pg MCHC (32-36) g/dL RDW Std Deviation (36.4-46.3) fL RDW Coeff of Tamra (11.5-14.5) % Plt Count (130-400) K/uL MPV (7.4-10.4) fL Immature Gran % (Auto) % Neut % (Auto) % Lymph % (Auto) % [place] % (Auto) % Eos % (Auto) % Baso % (Auto) % Immature Gran # (Auto) (0.00-0.02) K/uL Neut # (Auto) (1.4-6.5) K/uL Lymph # (Auto) (1.2-3.4) K/uL [place] # (Auto) (0.11-0.59) K/uL Eos # (Auto) (0-0.5) K/uL Baso # (Auto) (0-0.2) K/uL RBC Morphology Creatinine 1.44 H (0.6-1.2) mg/dl Est Cr Clr Drug Dosing 64.4 ml/min Est GFR ( Amer) 44.7 Est GFR (Non-Af Amer) 38.6 POC Glucose 169 H 188 H (70-99) mg/dl Bld Cult Staph aureus PCR (Negative) Blood Culture MRSA PCR (Negative) 11/12/19 11/10/19 Range/Units 16:15 13:53 WBC (4.8-10.8) K/uL RBC (4.2-5.4) M/uL Hgb (12.0-16.0) g/dL Hct (37-47) % MCV (80-100) fL MCH (25-34) pg MCHC (32-36) g/dL RDW Std Deviation (36.4-46.3) fL RDW Coeff of Tamra (11.5-14.5) % Plt Count (130-400) K/uL MPV (7.4-10.4) fL Immature Gran % (Auto) % Neut % (Auto) % Lymph % (Auto) % [place] % (Auto) % Eos % (Auto) % Baso % (Auto) % Immature Gran # (Auto) (0.00-0.02) K/uL Neut # (Auto) (1.4-6.5) K/uL Lymph # (Auto) (1.2-3.4) K/uL [place] # (Auto) (0.11-0.59) K/uL Eos # (Auto) (0-0.5) K/uL Baso # (Auto) (0-0.2) K/uL RBC Morphology Creatinine (0.6-1.2) mg/dl Est Cr Clr Drug Dosing ml/min Est GFR ( Amer) Est GFR (Non-Af Amer) POC Glucose 167 H (70-99) mg/dl Bld Cult Staph aureus PCR Negative (Negative) Blood Culture MRSA PCR Negative (Negative)
--- NOTE | 2019-11-13 14:49 | Pharmacy Report ---
Pharmacy Glycemic Short Note 2 - Date of Service November 13, 2019 - Glycemic Short BSG Results (Last 24 hours): 11/12/19 11/12/19 11/13/19 16:15 20:15 06:02 POC Glucose 167 H 188 H 169 H 11/13/19 11/13/19 07:41 11:33 POC Glucose 147 H 179 H OUTPATIENT ANTIDIABETIC REGIMEN: * U500 insulin pump * A1c = 6.5% on 11/11/2019 ASSESSMENT: 11/12: * Patient received a total of 113 units of insulin yesterday, 105 of NPH, 8 of correctional with good control * BSGs ranged from 96-188 mg/dL * BSG 147 mg/dL this morning, within goal range, patient was NPO this morning for possible OR and therefore given reduced NPH dose this AM, resume higher dosing PM. Patient will be NPO at midnight for OR tomorrow, therefore have reduced tomorrow AM's NPH dose. 11/11: * Patient received a total of 199 units of insulin yesterday, 160 basal + 39 bolus * BSGs ranged 120-229 mg/dL * BSG this AM was 102 mg/dL, well controlled * Patient was made NPO yesterday for debridement of sacral ulcer this AM. Initially, I had decreased her AM NPH dose by 50% to account for her not eating; however, patient has since refused this procedure. Spoke with RN and patient had already received 35 units NPH this AM. Expect BSGs to rise throu ghout the day secondary to this. 11/10: * Patient admitted with possible cellulitis/UTI - Type 2 diabetic managed on U- 500 insulin pump at home * Insulin pump attached on admission and set to basal settings with order for novolog if needed for elevated BSGs - BSGs controlled last evening * Pump however was disconnected accidentally overnight by nursing and pharmacy notified. Spoke with nursing and patient does not have extra tubing for insulin pump with her and they will try and follow up with daughter to see if she can bring in. Patient herself is not a good historian of pump settings and according to nurse the daughter helps out with insulin/pump settings at home * BSGs trending up this am to 229 mg/dL - appears on prior admissions NPH utilized with correctional insulin / will utilize regimen similar to other admissions PLAN FOR INPATIENT GLYCEMIC CONTROL: * Basal insulin * NPH 45 units SQ x 1 this AM * NPH 70-80 units SQ BIDM - see eMAR for further details * Bolus insulin * NovoLog per scale ACHS or Q6hrs while NPO * Goal Range: Low 120 mg/dL - High 160 mg/dL * Correction Factor: 5 mg/dL/unit * No carb coverage PLAN FOR DISCHARGE: * Continue U-500 insulin pump upon patient discharge.
--- NOTE | 2019-11-13 14:52 | Anesthesiology Consultation ---
Date of Service November 13, 2019 Assessment & Plan (1) Encounter for pre-operative examination: Chart Review Chart Review: Acceptable Risk for Surgery and Patient NOT seen in Pre Admission Testing 2 units pRBC's will be crossmatched and on hold for OR tomorrow. Had PAT clinic find old echo (2014) as this was the last time she has seen cardiology and echo at that time showed moderate LVH without other significant abnormalities (please see report). Patient also has not followed with pulmonary medicine since 2014. PAT also to scan in most recent family practice note. at home independent call center agent anesthesiologist plans on speaking with patient and discussing anesthetic plan. Could consider biPAP after extubation if necessary. Unsure if she would be a SAB candidate as general surgeon concerned about skin breakdown in her lower back. Coags normal as of 11/10/2019. Consults Requested none History Surgery Operation Date: 11/12/19 09:35 Proposed Procedures p Debridement Lower Back Ulcer - Luc Arce MD Operation Date: 11/14/19 07:00 Proposed Procedures p Buttock and Sacral Decubitus Debridement - Anil Kay MD Height/Weight Height: 5 ft 7 in Weight: 162.6 kg Allergies Allergy/AdvReac Type Severity Reaction Status Date / Time cephalexin [From Keflex] Allergy Mild Rash Unverified 11/10/19 15:07 Medications Home Medications Medication Instructions Recorded Confirmed Last Taken Spiriva with HandiHaler 1 cap INHALATION QAM 11/15/18 11/10/19 11/10/19 carvedilol 3.125 mg PO BID 11/15/18 11/10/19 11/10/19 cholecalciferol (vitamin D3) 5,000 unit PO WE 11/15/18 11/10/19 11/07/19 [Vitamin D3] cyanocobalamin (vitamin B-12) 1,000 mcg IM Q30D 11/15/18 11/10/19 08/18/19 docusate sodium 100 mg PO BID 11/15/18 11/10/19 11/10/19 nitrofurantoin macrocrystal 50 mg PO HS 11/15/18 11/10/19 11/09/19 nystatin 1 applic TOPICAL BID 11/15/18 11/10/19 11/10/19 oxycodone 20 mg PO QID 11/15/18 11/10/19 11/10/19 gabapentin 300 mg PO TID #90 cap 11/19/18 11/10/19 11/10/19 cranberry 450 mg PO DAILY@119903/09/19 11/10/19 11/10/19 ferrous sulfate 325 mg PO DAILY@1200 03/09/19 11/10/19 11/10/19 fluticasone propion-salmeterol 1 inh INHALATION BID 03/09/19 11/10/19 11/10/19 [Wixela Inhub] magnesium oxide 400 mg PO DAILY@119903/09/19 11/10/19 11/10/19 omega 0-vbf-lcq-fish oil [Fish Oil] 1 cap PO HS 03/09/19 11/10/19 11/09/19 insulin regular hum U-500 conc 500 See Rx Instructions .ROUTE 04/23/19 11/10/19 09/11/19 unit/mL subcutaneous soln .COMPLEX #20 milliliter levothyroxine 88 mcg PO QAM 09/11/19 11/10/19 11/10/19 omeprazole 20 mg PO QAM 09/11/19 11/10/19 11/10/19 zinc 50 mg PO DAILY@119909/11/19 11/10/19 11/10/19 atorvastatin 10 mg PO HS 11/10/19 11/10/19 11/09/19 bumetanide 1 mg PO BID 11/10/19 11/10/19 11/10/19 lisinopril 5 mg PO DAILY@12 11/10/19 11/10/19 11/10/19 menthol-zinc oxide [Calmoseptine] 1 applic TOPICAL BID PRN 11/10/19 11/10/19 11/10/19 ondansetron HCl 4 mg PO Q6H PRN 11/10/19 11/10/19 Unknown Active Medications Generic Name Dose Route Start Last Admin Trade Name Freq PRN Reason Stop Dose Admin Acetaminophen 650 mg 11/10/19 19:30 11/11/19 11:31 Tylenol PO 12/10/19 19:29 650 mg Q4H PRN Administration pain/fever Atorvastatin Calcium 10 mg 11/10/19 21:00 11/12/19 21:10 Lipitor PO 12/10/19 20:59 10 mg HS RSUS Administration Bumetanide 1 mg 11/10/19 20:00 11/13/19 08:59 Bumex PO 12/10/19 19:59 1 mg BID17 RUSS Administration Docusate Sodium 100 mg 11/10/19 21:00 11/13/19 09:10 Colace PO 12/10/19 20:59 100 mg BID RUSS Administration Ferrous Sulfate 325 mg 11/11/19 12:00 11/13/19 13:16 Feosol PO 12/11/19 11:59 325 mg DAILY@1200 RUSS Administration Fish Oil 1 gm 11/10/19 21:00 11/12/19 21:12 Terrell-3 (Purified Fish Oil) PO 12/10/19 20:59 1 gm HS RUSS Administration Fluconazole 200 mg 11/13/19 09:00 11/13/19 09:00 Diflucan PO 11/20/19 08:59 200 mg QAM RUSS Administration Protocol Fluticasone/Vilanterol 1 puffs 11/11/19 09:00 11/13/19 09:00 Breo Ellipta 100/25 Mcg Inh INH 12/11/19 08:59 1 puffs DAILY RUSS Administration Protocol Gabapentin 300 mg 11/10/19 21:00 11/13/19 13:15 Neurontin PO 12/10/19 20:59 300 mg TID RUSS Administration Piperacillin Sod/Tazobactam 120 mls @ 28.75 mls/hr 11/10/19 20:00 11/13/19 13:16 Sod 4.5 gm/ Dextrose IV 11/17/19 19:59 28.8 mls/hr Q8H RUSS Administration Protocol Sodium Chloride 1,000 mls @ 80 mls/hr 11/10/19 23:15 11/13/19 13:16 Nss 1000ml IV 12/10/19 23:14 80 mls/hr .[id number] RUSS Administration Insulin Aspart 0 units 11/11/19 08:15 11/13/19 13:17 Novolog Flexpen SC 12/11/19 08:14 4 units ACHS RUSS Administration Insulin Human NPH 0 units 11/11/19 08:15 11/13/19 09:03 Novolin N Nph SC 12/11/19 08:14 45 units BIDM RUSS Administration Protocol Levothyroxine Sodium 88 mcg 11/11/19 06:30 11/13/19 06:20 Synthroid PO 12/11/19 06:29 88 mcg DAILYBB RUSS Administration Magnesium Oxide 400 mg 11/11/19 12:00 11/13/19 13:15 Mag-Ox PO 12/11/19 11:59 400 mg DAILY@1200 RUSS Administration Morphine Sulfate 1 mg 11/10/19 19:30 11/12/19 23:28 Morphine Sulfate IV 11/24/19 19:29 1 mg Q4H PRN Administration Pain Nystatin 1 appln 11/10/19 21:00 11/13/19 09:03 Mycostatin EXT 12/10/19 20:59 1 appln BID RUSS Administration Ondansetron HCl 4 mg 11/10/19 19:30 11/13/19 09:10 Zofran Odt PO 4 mg Q6H PRN Administration Nausea Oxycodone HCl 20 mg 11/10/19 21:00 11/13/19 13:22 Roxicodone Immediate Rel PO 11/24/19 20:59 20 mg QID RUSS Administration Pantoprazole Sodium 40 mg 11/11/19 09:00 11/13/19 09:01 Protonix PO 12/11/19 08:59 40 mg QAM RUSS Administration Umeclidinium Ash 1 puffs 11/11/19 09:00 11/13/19 09:01 Incruse Ellipta INH 12/11/19 08:59 1 puffs DAILY RUSS Administration Zinc Sulfate 220 mg 11/11/19 12:00 11/13/19 13:16 Zinc Sulfate PO 12/11/19 11:59 220 mg DAILY@1200 RUSS Administration Past Medical History Medical History (Updated 11/13/19 @ 15:38 by Glenn Lee MD) Acute hypotension (Inactive) Acute renal failure (Inactive) Acute UTI (Inactive) Anemia transfused 2 units pRBCs on 11/11/2019. 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; takes chronic opiates Chronic respiratory failure with hypoxia and hypercapnia (Chronic) on home o2, 3 L continuously Chronic ulcer of buttock COPD (chronic obstructive pulmonary disease) (Chronic) DM II (diabetes mellitus, type II), controlled (Chronic) insulin pump HLD (hyperlipidemia) (Chronic) HTN (hypertension) (Chronic) Hypothyroid Morbid obesity with BMI of 60.0-69.9, adult NAFLD (nonalcoholic fatty liver disease) Obesity hypoventilation syndrome (Chronic) Psoriasis (Chronic) Recurrent UTI (urinary tract infection) Sepsis (Inactive) Admitted with sepsis. Source appears to be decubitus ulcer on her back side. Exercise / Class Metabolic Activity IV < 2 Limit ADL/Bedbound Past Family History Family History Father Lung disease Mother , some form of uterine disease? No problems noted. Past Surgical History Surgical History Surgical history unknown Past Anesthesia History No Hx of Anesthesia Complications and No Family Hx of Anesthesia Complications History of PONV No Hx of PONV and No Hx of Motion Sickness Social History Smoking Status: Former smoker Do You Dip or Chew Tobacco: No Hx Alcohol Use: No Hx Substance Use: No substance use type: does not use Physical Exam Vital Signs Last Vital Signs Temp 37 C 11/13/19 11:45 Pulse 82 11/13/19 14:21 Resp 18 11/13/19 11:45 BP 101/64 11/13/19 11:45 Pulse Ox 99 11/13/19 11:45 Testing Laboratory Results 11/13/19 06:04 11/13/19 06:04 PT 11.5 Seconds (9.0-12.0) 11/10/19 13:53 INR 1.1 (0.9-1.1) 11/10/19 13:53 APTT 24.5 Seconds (21.0-31.0) 11/10/19 13:53 Hemoglobin A1c 6.5 % (4.5-5.6) H 11/11/19 05:41 Urine Color Yellow 11/10/19 13:40 Urine Appearance Turbid (Clear) A 11/10/19 13:40 Urine pH 6.5 (4.5-7.5) 11/10/19 13:40 Ur Specific [place] 1.010 (1.000-1.030) 11/10/19 13:40 Urine Protein Negative (Negative) 11/10/19 13:40 Urine Glucose (UA) Negative (Negative) 11/10/19 13:40 Urine Ketones Negative (Negative) 11/10/19 13:40 Urine Nitrite Negative (Negative) 11/10/19 13:40 Ur Leukocyte Esterase 2+ (Negative) H 11/10/19 13:40 Urine WBC (Auto) >30 /hpf (0-5) H 11/10/19 13:40 Urine RBC (Auto) 0-4 /hpf (0-4) 11/10/19 13:40 U Hyaline Cast (Auto) 0 /lpf (0-5) 11/10/19 13:40 U Epithel Cells (Auto) >30 /lpf (0-5) H 11/10/19 13:40 Urine Bacteria (Auto) Negative (Negative) 11/10/19 13:40 Blood Type O Positive 11/11/19 14:56 Antibody Screen NEGATIVE 11/11/19 14:56 11/10/19 13:53 Aerobic Blood Culture - Preliminary Blood Gram positive cocci Anaerobic Blood Culture - Final 11/10/19 13:53 Aerobic Blood Culture - Preliminary Blood No growth in Aerobic bottle after 48 hours. Anaerobic Blood Culture - Preliminary No growth in Anaerobic bottle after 48 hours. 11/10/19 13:40 Urine Culture - Final Urine,Clean Catch Natacha albicans Diptheroids 11/13/19 11/13/19 11/13/19 11:33 07:41 06:02 POC Glucose 179 H 147 H 169 H Electrocardiogram Date: 11/10/19 Findings: + NSR @ (89) Poor data quality, interpretation may be adversely affected Normal sinus rhy thm Normal ECG When compared with ECG of 10-NOV-2019 14:19, (unconfirmed) No significant change Confirmed by Hang Espinosa ([id number]) on 11/11/2019 10:27:55 AM Chest X-Ray Date: 11/10/19 XR chest 1V portable CLINICAL HISTORY: Sepsis. COMPARISON STUDY: Chest radiograph October 19, 2019. FINDINGS: Lung volumes are within normal limits. There is no pneumothorax or pleural effusion. Note is made of moderate cardiomegaly without evidence for pulmonary edema. Mild bibasilar opacities. IMPRESSION: 1. Mild bibasilar opacities. Atelectasis is favored however an infectious process could appear similar. 2. Moderate cardiomegaly. No evidence for pulmonary edema.
[2019-11-13] MEDS ORDERED: SODIUM CHLORIDE 0.9% 250 ML IV PRN (15:45)
--- NOTE | 2019-11-13 16:30 | Hospitalist Progress Note ---
Date of Service November 13, 2019 Assessment & Plan (1) Sepsis: POA from buttocks ulcer/cellulitis -resolving -continue zosyn, continue local wound care pending anticipate debridement -blood culture x1 noted - since only 1/2 might be contaminant, since large ulcer/skin infection might be true positive - either way though since MRSA negative on PCR and WBC/clinical picture improving - zosyn would be covering (2) Acute renal failure: Likely secondary to above problem - improved. probably more indicative of HOLLY on CKD - but improved. continue to follow (3) Abnormal EKG: Noted on admission Repeat WNL No s/sx c/w ACS Trop negative (4) Acute hypotension: Likely related to infection/ anemia transfused 1 unit of PRBC. (5) Cellulitis: Pressure ulcer of right & left buttock, stage unstageable, left heel, stage unstageable, and left lower lateral leg, stage unstageable. Recurrent Wound HHN following at baseline was on doxy as outpt - now worsening prior to this admission - almost certainly due to obesity (BMI 56) and immobility/weakness/deconditioning -continue zosyn (6) Acute UTI: suspect contaminant related to chronic barboza (7) Chronic pain syndrome: continue home meds (8) Chronic indwelling Barboza catheter: Related to bed bound status Hx of recurrent UTI noted Takes nitrofurantoin for UTI proph Holding during current abx Do not belive this to be the main problem as ulcers appear infected. (9) Hypertension: home meds on hold right now related to hypotension (10) Iron deficiency: continue home meds (11) Obesity hypoventilation syndrome: Noted - continue supportive care (12) Anemia: was as low as 6.5 - now improved post transfusion - continue to follow (13) DM II (diabetes mellitus, type II), controlled: Continue home pump A1c 6.5 sugars overall showing acceptable control (14) HLD (hyperlipidemia): continue home meds (15) Hypothyroid: continue home meds (16) DVT prophylaxis: SCDs, pt is bed bound at baseline Admission and Anticipated Discharge Date Admission Date: November 10, 2019 Subjective seen at time of wound cleaning/dressing change - significant pain from this. had buttocks pain last time she was here a few weeks ago - was unable to visualize myself, but in d/w nursing who was caring for her at the time, area looked somewhat reddened but otherwise without significant concerning breakdown. Review of Systems Review of Systems: All systems reviewed & are unremarkable except as noted in HPI & below Physical Exam Physical Exam: vitals noted, laying on L side in discomfort from wound cleaning. large area on buttocks R of center with fairly deep ulceration, exudate, a little bit of necrotic appearing tissue. fortunately now little to no surrounding erythema. Results & Data Results & Data ([facility]) Vital Signs (Past 12 Hours) Vital Signs Temp Pulse Pulse Resp BP BP Pulse Ox 11/13/19 15:49 99.0 F 78 18 104/67 99 11/13/19 14:21 82 11/13/19 11:45 98.6 F 82 18 101/64 99 11/13/19 07:50 98.4 F 81 18 97/55 L 97 11/13/19 07:15 75 PG Care Time/CCT Total # of Minutes Spent Total Time Spent with Patient: Total time spent is greater than 50% in coordination of care (as documented) at patient's floor/unit and/or counseling patient: Coding Level of Care Code 47329 Subseq Hosp Care Lvl 3 Diagnoses Sepsis A41.9 Acute renal failure N17.9 Acute renal failure type: unspecified Abnormal EKG R94.31 Acute hypotension I95.9 Cellulitis L03.90 Site of cellulitis: unspecified site Acute UTI N39.0 Chronic pain syndrome G89.4 Chronic indwelling Barboza catheter Z96.0 Hypertension I10 Hypertension type: essential hypertension Iron deficiency E61.1 Obesity hypoventilation syndrome E66.2 Anemia D64.9 DM II (diabetes mellitus, type II), controlled E11.29; Z79.4 Diabetes mellitus terminal makeup operator insulin use: with group home use Diabetes mellitus complication status: with kidney complications Diabetes mellitus complication detail: with other kidney complication HLD (hyperlipidemia) E78.5 Hypothyroid E03.9 Hypothyroidism type: unspecified DVT prophylaxis Z29.9 (1) Acute renal failure Acute renal failure type: unspecified Qualified Code(s): N17.9 - Acute kidney failure, unspecified (2) Cellulitis Site of cellulitis: unspecified site Qualified Code(s): L03.90 - Cellulitis, unspecified (3) Hypertension Hypertension type: essential hypertension Qualified Code(s): I10 - Essential (primary) hypertension (4) DM II (diabetes mellitus, type II), controlled Diabetes mellitus terminal makeup operator insulin use: with terminal makeup operator use Diabetes mellitus complication status: with kidney complications Diabetes mellitus complication detail: with other kidney complication Qualified Code(s): E11.29 - Type 2 diabetes mellitus with other diabetic kidney complication; Z79.4 - intermediate (current) use of insulin (5) Hypothyroid Hypothyroidism type: unspecified Qualified Code(s): E03.9 - Hypothyroidism, unspecified
--- NOTE | 2019-11-13 19:40 | Communication Note ---
Date of Service: November 13, 2019 I spoke extensively to the patient at bedside to evaluate for anesthetic for the planned sacral ulcer debreidment on 11/13. The patient has O2 dependent COPD and super morbid obesity from which she is permanently bedbound. She is in severe pain and cannot lay flat without severe generalized pain and dyspnea. She explains that she sleeps only in a fully upright position. She did not appear dyspneic during our conversation. During our conversation, the patient fell asleep several times raising the possibility of significant CO2 retention from COPD and likely also a component of obesity hypoventilation syndrome. Dr Kay requested general anesthesia for the surgery. The patient was considered for local with sedation, spinal or epidural a nesthesia, and general anesthesia. Given her inability to lay flat, the extensive nature of her wound, and what appears to be severe ZACKARY/OHS, I do not think she would be a good candidate for local with sedation. Very deep sedation would likely be required simply for positioning, and I do not think the patient would tolerate this without airway and ventilatory support. To consider spinal anesthetic, I lifted the patient forward with the help of her bedside RN. Despite the efforts of two young men, she was almost impossible to lift 8-12 inches forward in bed, and she had severe pain with this. In addition, it appeared that redness and eschar covered much of her spine up to the low thoracic region. Given the technical limitations of spinal and the potentially infected tissue high on her lumbar area, I also do not feel she is a good candidate for spinal or epidural anesthesia either. This left general anesthesia which the patient firmly refuses. She tells me that "doctors" in the past told her she could never have general anesthesia due to a condition with her left heart. The last visit in our system with cardiology in 2014 describes the management of her chronic peripheral edema, non-obstructive CAD, and an echocardiogram showing LV diastolic dysfunction without systolic disfunction or severe valvular disease. She denies seeing a agriculture worker in the interim, but is still adamant in her position that was told "never to go to sleep for surgery" or she "wouldn't wake up." I discussed with her that she is high risk, and may likely require temporary post op support in the form of BiPAP or ventilator, but I could see no absolute contraindications to general anesthesia. I also discussed that while the surgery was important, it was not emergent and she did not have to proceed tomorrow. Alternatives to having the procedure would best be discussed with surgery or infectious disease, but I did discuss that without debriedment and surgical wound care, her wounds would not likely improve and her sepsis may eventually return and may become life threatening. Despite this, she does not wish to proceed with surgery under general anesthesia, and I feel she is sound of mind to make that decision. I have spoken with Dr Kay and we have cancelled tomorrow's planned procedure and will allow the patient to eat. If she decides that she would like to proceed in the future, it would be helpful to have an ABG prior to surgery to serve as a baseline and help with post operative weaning of ventilatory support. Given that she is not proceeding at this time, we can differ that test for now. She is satisfied with this plan and will contact our department if she has further questions.
[2019-11-13] MEDS: OMEGA-3 (PURIFIED FISH OIL) 1 GM CAP PO SCH (20:07)
[2019-11-13] MEDS: ATORVASTATIN 10 MG TAB PO SCH (20:07)
[2019-11-13] MEDS: ACETAMINOPHEN 325 MG TAB PO PRN (22:18)
[2019-11-14] MEDS: SODIUM CHLORIDE 0.9% 1000ML 1,000 ML IV SCH (01:46)
[2019-11-14] MEDS: PIPERACILLIN/TAZOBACTAM 4.5 GM in DEXTROSE 5% 100 ML IV SCH ×3 (04:05→20:49)
[2019-11-14 06:08] LABS: Basophils # (auto) 0.06 K/uL (0-0.2); Basophils % (auto) 0.5 %; Eosinophils # (auto) 0.25 K/uL (0-0.5); Hematocrit (blood only) 24.3 % (37-47); Hemoglobin 7.6 g/dL (12.0-16.0); Immature Granulocytes # (auto) 0.62 K/uL (0.00-0.02); Immature Granulocytes % (auto) 4.9 %; Lymphocytes # (auto) 1.61 K/uL (1.2-3.4); Lymphocytes % (auto) 12.8 %; Mean Corpuscular Hemoglobin 28.8 pg (25-34); Mean Corpuscular Hgb Conc 31.3 g/dL (32-36); Mean Platelet Volume 8.5 fL (7.4-10.4); Monocytes # (auto) 0.95 K/uL (0.11-0.59); Monocytes % (auto) 7.6 %; Neutrophils # (auto) 9.08 K/uL (1.4-6.5); Neutrophils % (auto) 72.2 %; Platelet Count 366 K/uL (130-400); RDW Coefficient of Variation 16.4 % (11.5-14.5); RDW Standard Deviation 54.9 fL (36.4-46.3); Red Blood Count 2.64 M/uL (4.2-5.4); White Blood Count 12.57 K/uL (4.8-10.8)
[2019-11-14] MEDS: LEVOTHYROXINE SODIUM 88 MCG TABLET PO SCH (06:20)
[2019-11-14 06:31] LABS: RBC Morphology Unremarkable
[2019-11-14 06:37] LABS: Creatinine Clr Calc Pharmacy 78.5 ml/min; Est GFR (African American) 57.4; Est GFR (Non-African American) 49.6
[2019-11-14] MEDS ORDERED: INSULIN HUMAN NPH SC ONE (08:00)
[2019-11-14] MEDS: UMECLIDINIUM BROMIDE 62.5MCG/BLISTER 7 PUFFS/INHALER INH SCH (09:06)
[2019-11-14] MEDS: NYSTATIN POWDER 15GM BTL EXT SCH ×2 (09:06→20:49)
[2019-11-14] MEDS: FLUTICASONE/VILANTEROL 100/25MCG 14 PUFFS/INHALER INH SCH (09:06)
[2019-11-14] MEDS: GABAPENTIN 300 MG CAP PO SCH ×3 (09:07→20:48)
[2019-11-14] MEDS: FLUCONAZOLE 100 MG TAB PO SCH (09:08)
[2019-11-14] MEDS: PANTOprazole 40 MG TAB PO SCH (09:08)
[2019-11-14] MEDS: BUMETANIDE 1 MG TAB PO SCH ×2 (09:08→16:44)
[2019-11-14] MEDS: CHOLECALCIFEROL 1,000 UNITS 25 MCG TAB PO SCH (09:08)
[2019-11-14] MEDS: OXYCODONE HCL IR 5 MG TAB (IMMEDIATE RELEASE) PO SCH ×4 (09:13→20:48)
[2019-11-14] MEDS: ONDANSETRON 4 MG OD TAB PO PRN (09:13)
[2019-11-14] MEDS: DOCUSATE SODIUM 100 MG CAP PO SCH ×2 (09:13→20:49)
[2019-11-14] MEDS: INSULIN ASPART 100 UNITS/ML 3 ML PEN SC SCH ×4 (09:16→20:53)
--- NOTE | 2019-11-14 10:13 | Pharmacy Report ---
Pharmacy Glycemic Short Note 2 - Date of Service November 14, 2019 - Glycemic Short BSG Results (Last 24 hours): 11/13/19 11/13/19 11/13/19 11:33 16:21 20:18 POC Glucose 179 H 185 H 177 H 11/14/19 07:35 POC Glucose 95 OUTPATIENT ANTIDIABETIC REGIMEN: * U500 insulin pump * A1c = 6.5% on 11/11/2019 ASSESSMENT: 11/13: * Patient received total of 128 units of insulin yesterday, of which 115 were basal insulin * Fasting lower this AM at 95 mg/dL - per nurse patient has diet ordered however may attempt to go to OR - will therefore utilize lower NPH scale for this AM in anticipation for possible NPO status - appears patient refusing surgery. Will still scale back on NPH for lower fasting level this AM 11/12: * Patient received a total of 113 units of insulin yesterday, 105 of NPH, 8 of correctional with good control * BSGs ranged from 96-188 mg/dL * BSG 147 mg/dL this morning, within goal range, patient was NPO this morning for possible OR and therefore given reduced NPH dose this AM, resume higher dosing PM. Patient will be NPO at midnight for OR tomorrow, therefore have reduced tomorrow AM's NPH dose. 11/11: * Patient received a total of 199 units of insulin yesterday, 160 basal + 39 bolus * BSGs ranged 120-229 mg/dL * BSG this AM was 102 mg/dL, well controlled * Patient was made NPO yesterday for debridement of sacral ulcer this AM. Initially, I had decreased her AM NPH dose by 50% to account for her not eating; however, patient has since refused this procedure. Spoke with RN and patient had already received 35 units NPH this AM. Expect BSGs to rise throughout the day secondary to this. 11/10: * Patient admitted with possible cellulitis/UTI - Type 2 diabetic managed on U- 500 insulin pump at home * Insulin pump attached on admission and set to basal settings with order for novolog if needed for elevated BSGs - BSGs controlled last evening * Pump however was disconnected accidentally overnight by nursing and pharmacy notified. Spoke with nursing and patient does not have extra tubing for insulin pump with her and they will try and follow up with daughter to see if she can bring in. Patient herself is not a good historian of pump settings and according to nurse the daughter helps out with insulin/pump settings at home * BSGs trending up this am to 229 mg/dL - appears on prior admissions NPH utilized with correctional insulin / will utilize regimen similar to other admissions PLAN FOR INPATIENT GLYCEMIC CONTROL: * Basal insulin * NPH 45 units SQ x 1 this AM * NPH 50-60 units based upon BSG * Bolus insulin * NovoLog per scale ACHS or Q6hrs while NPO * Goal Range: Low 120 mg/dL - High 160 mg/dL * Correction Factor: 5 mg/dL/unit * No carb coverage PLAN FOR DISCHARGE: * Continue U-500 insulin pump upon patient discharge.
[2019-11-14] MEDS: FERROUS SULFATE 325 MG TAB PO SCH (12:16)
[2019-11-14] MEDS: MAGNESIUM OXIDE 400 MG TAB PO SCH (12:16)
[2019-11-14] MEDS: ZINC SULFATE 220 MG CAPSULE PO SCH (12:17)
--- NOTE | 2019-11-14 13:12 | Surgery Progress Note ---
Date of Service November 14, 2019 Assessment & Plan (1) Decubital ulcer: The patient has multiple decubital ulcers on her buttock and into the sacrum. I explained the importance of debriding them and the fact that there is skin tissue there and that this may lead to infection that could become overwhelming but she is very concerned about a general anesthesia. I think she would need to lay on her belly which she cannot do very well. She is concerned about the general anesthesia and does not want the surgery at the present time. If she changes her mind we can then make a plan for debridement Subjective Patient subjectively is feeling unchanged She had her dressings changed earlier today She had a discussion with Dr. Chambers yesterday from anesthesia She is decided she does not want general anesthesia The case yesterday was canceled as a result of that Results & Data Vital Signs (Past 12 Hours) Vital Signs Temp Pulse Pulse Resp BP Pulse Ox 11/14/19 11:37 37.6 C H 94 H 20 106/55 L 98 11/14/19 06:33 37.1 C 93 H 18 119/72 95 11/14/19 04:13 90 11/14/19 03:57 37.8 C H 72 19 97/59 L 99
--- NOTE | 2019-11-14 14:10 | Hospitalist Progress Note ---
Date of Service November 14, 2019 Assessment & Plan (1) Sepsis: POA from buttocks ulcer/cellulitis -resolving -continue zosyn, continue local wound care pending anticipate debridement -blood culture x1 noted - since only 1/2 and coag negative staph - almost certainly contaminant. (2) Acute renal failure: Likely secondary to above problem - improved. probably more indicative of HOLLY on CKD - but improved. continue to follow - creatinine even better today (3) Abnormal EKG: Noted on admission Repeat WNL No s/sx c/w ACS Trop negative prior echo without significant findings (4) Acute hypotension: Likely related to infection/ anemia transfused 1 unit of PRBC. BP now has been acceptable (5) Cellulitis: Pressure ulcer of right & left buttock, stage unstageable, left heel, stage unstageable, and left lower lateral leg, stage unstageable. -continue zosyn -PT/OT eval and treat - she's currently not opposed to the idea of rehab setting to try to gain mobility (although she also is not entirely saying she would either) -cardiology evaluation in regards to preop cardiac risk - from my perspective her airway/breathing risk (which anesthesia is aware of and appear to believe is reasonable to manage) is a much higher risk than her cardiac risk - and either way the risk to her overall well being from the sacral ulcer/cellulitis is much higher given that it has imminently caused her harm (6) Acute UTI: suspect contaminant related to chronic barboza not actual infection (7) Chronic pain syndrome: continue home meds -pain reasonable control today (8) Chronic indwelling Barboza catheter: Related to bed bound status Hx of recurrent UTI noted Takes nitrofurantoin for UTI proph Holding during current abx Do not belive this to be the main problem as ulcers appear infected. (9) Hypertension: home meds on hold right now related to hypotension (10) Iron deficiency: continue home meds (11) Obesity hypoventilation syndrome: Noted - continue supportive care - airway seems to be biggest perioperative risk (12) Anemia: was as low as 6.5 - now improved post transfusion - continue to follow (slight downtrend, but no overt s/s blood loss) (13) DM II (diabetes mellitus, type II), controlled: Continue home pump A1c 6.5 sugars overall showing reasonable control (14) HLD (hyperlipidemia): continue home meds (15) Hypothyroid: continue home meds (16) DVT prophylaxis: SCDs, pt is bed bound at baseline Admission and Anticipated Discharge Date Admission Date: November 10, 2019 Subjective declined debridement because of her concern on anesthesia risk. d/w wound care - will be difficult to have clean without surgery, also very difficult to heal with her bedbound/immobile state given difficulty in keeping pressure off the wound. no significant pain right now. no f/c/s (temp noted objectively on chart - she denies feeling feverish) explained to her visually the size and depth of her ulcer so that she has a better understanding of what we're treating and why it's causing such concern. discussed current situation - discussed that while she is certainly higher risk for surgery, i would have more concerns on airway, and don't see anything that shows a significant contraindication from a cardiac standpoint. we agreed that discussion with cardiology might be helpful to her decision making. further discussed regardless of surgical debridement, the situation will not get better without being able to offload the area - and this will require repositioning and ideally trying to do enough therapy to get her out of her current bedbound status. she was not unwilling to consider this. Review of Systems Review of Systems: All systems reviewed & are unremarkable except as noted in HPI & below Physical Exam Physical Exam: gen aao pleasant nad heent nc at mmm breathing unlabored no accessory muscles good effort skin no rashes no pallor or icterus - due to positioning, ulcer not albe to be visualized today. Results & Data Results & Data ([facility]) Vital Signs (Past 12 Hours) Vital Signs Temp Pulse Pulse Resp BP Pulse Ox 11/14/19 11:37 99.7 F H 94 H 20 106/55 L 98 11/14/19 06:33 98.8 F 93 H 18 119/72 95 11/14/19 04:13 90 11/14/19 03:57 100.0 F H 72 19 97/59 L 99 PG Care Time/CCT Total # of Minutes Spent Total Time Spent with Patient: Total time spent is greater than 50% in coordination of care (as documented) at patient's floor/unit and/or counseling patient: Coding Level of Care Code 36348 Subseq Hosp Care Lvl 3 Diagnoses Sepsis A41.9 Acute renal failure N17.9 Acute renal failure type: unspecified Abnormal EKG R94.31 Acute hypotension I95.9 Cellulitis L03.90 Site of cellulitis: unspecified site Acute UTI N39.0 Chronic pain syndrome G89.4 Chronic indwelling Barboza catheter Z96.0 Hypertension I10 Hypertension type: essential hypertension Iron deficiency E61.1 Obesity hypoventilation syndrome E66.2 Anemia D64.9 DM II (diabetes mellitus, type II), controlled E11.29; Z79.4 Diabetes mellitus technician terminal and repeater insulin use: with technician terminal and repeater use Diabetes mellitus complication status: with kidney complications Diabetes mellitus complication detail: with other kidney complication HLD (hyperlipidemia) E78.5 Hypothyroid E03.9 Hypothyroidism type: unspecified DVT prophylaxis Z29.9 (1) Acute renal failure Acute renal failure type: unspecified Qualified Code(s): N17.9 - Acute kidney failure, unspecified (2) Cellulitis Site of cellulitis: unspecified site Qualified Code(s): L03.90 - Cellulitis, unspecified (3) Hypertension Hypertension type: essential hypertension Qualified Code(s): I10 - Essential (primary) hypertension (4) DM II (diabetes mellitus, type II), controlled Diabetes mellitus technician terminal and repeater insulin use: with alf use Diabetes mellitus complication status: with kidney complications Diabetes mellitus complication detail: with other kidney complication Qualified Code(s): E11.29 - Type 2 diabetes mellitus with other diabetic kidney complication; Z79.4 - buttermaker continuous churn (current) use of insulin (5) Hypothyroid Hypothyroidism type: unspecified Qualified Code(s): E03.9 - Hypothyroidism, unspecified
--- NOTE | 2019-11-14 15:44 | Cardiology Consultation ---
Date of Consultation November 14, 2019 Assessment & Plan (1) Preoperative cardiovascular examination: Unfortunately, the patient is bed-bound and demonstrates poor functional status. However, she does not carry a significant cardiac history. It would be reasonable to recheck an echocardiogram to assess left ventricular systolic function. If her ejection fraction is normal, it would be reasonable to proceed with surgery from a cardiac perspective. (2) CAD (coronary artery disease): The patient had nonobstructive disease noted time of a cardiac catheterization in December 2009. There have been no issues from a coronary artery perspective since that time. (3) Benign essential HTN: Adequate control on current medical regimen. (4) HLD (hyperlipidemia): Continue atorvastatin. History of Present Illness Attending Physician: Jim Hong DO History of Present Illness Mrs. Ayoub is a 64-year-old female admitted on November 09 with fever, hypotension, and sepsis related to a large gluteal and buttock decubitus. Plans are being made for an operative procedure, and therefore, this consultation was ordered. The patient has been bed-bound for approximately 2 years. She has had numerous hospitalizations for sepsis, typically from a urinary source. Unfortunately, she now has a large decubitus on her right buttock and gluteal region as described. The patient is very concerned undergoing general anesthesia as she was once told that her "heart would not take it. " The patient does not carry a significant cardiac history. She underwent a cardiac catheterization in December 2009 which noted minimal, nonobstructive coronary artery disease. She did see Anil Deisy in [place] back in 2014. echocardiogram performed at that time noted normal left ventricular systolic function, mild LVH, and evidence of type 1 diastolic dysfunction. The patient does not experience chest discomfort nor dyspnea while at rest. However, her functional status is very limited. She further denies syncope, presyncope, PND, orthopnea, palpitations, change or lower extremity edema, and claudication. We have discussed the need for repeat echocardiogram to assess left ventricular systolic function. The patient is still uncertain whether she will proceed with surgery. Past medical and surgical history 1. Nonobstructive coronary artery disease- December 2009 2. Hypertension 3. Mild LVH 4. Hypercholesterolemia 5. COPD 6. Obesity hypoventilation syndrome 7. Obstructive sleep apnea 8. Chronic renal failure 9. Non alcoholic steatohepatitis 10. Anemia of chronic disease 11. Psoriasis 12. Chronic lower extremity edema 13. Chronic venous stasis 14. DJD 15. Depression 16. Ambulatory dysfunction -bed bound 17. Chronic Garcia catheter 18. Chronic UTIs 19. Diabetic neuropathy Social history and lives with her Quit tobacco years ago, 30 pack year history No alcohol Family history Father at 62 from COPD Mother at 62 from uterine carcinoma Review of systems A 10 point review systems was negative except for that described above. Allergies Allergy/AdvReac Type Severity Reaction Status Date / Time cephalexin [From Keflex] Allergy Mild Rash Unverified 11/10/19 15:07 Home Medications Home Medications Medication Instructions Recorded Confirmed Type Spiriva with HandiHaler 1 cap INHALATION QAM 11/15/18 11/10/19 History carvedilol 3.125 mg PO BID 11/15/18 11/10/19 History cholecalciferol (vitamin D3) 5,000 unit PO WE 11/15/18 11/10/19 History [Vitamin D3] cyanocobalamin (vitamin B-12) 1,000 mcg IM Q30D 11/15/18 11/10/19 History docusate sodium 100 mg PO BID 11/15/18 11/10/19 History nitrofurantoin macrocrystal 50 mg PO HS 11/15/18 11/10/19 History nystatin 1 applic TOPICAL BID 11/15/18 11/10/19 History oxycodone 20 mg PO QID 11/15/18 11/10/19 History gabapentin 300 mg PO TID #90 cap 11/19/18 11/10/19 Rx cranberry 450 mg PO DAILY@1200 03/09/19 11/10/19 History ferrous sulfate 325 mg PO DAILY@1200 03/09/19 11/10/19 History fluticasone propion-salmeterol 1 inh INHALATION BID 03/09/19 11/10/19 History [Wixela Inhub] magnesium oxide 400 mg PO DAILY@1200 03/09/19 11/10/19 History omega 3-jiv-fxq-fish oil [Fish Oil] 1 cap PO HS 03/09/19 11/10/19 History insulin regular hum U-500 conc 500 See Rx Instructions .ROUTE 04/23/19 11/10/19 Rx unit/mL subcutaneous soln .COMPLEX #20 milliliter levothyroxine 88 mcg PO QAM 09/11/19 11/10/19 History omeprazole 20 mg PO QAM 09/11/19 11/10/19 History zinc 50 mg PO DAILY@1200 09/11/19 11/10/19 History atorvastatin 10 mg PO HS 11/10/19 11/10/19 History bumetanide 1 mg PO BID 11/10/19 11/10/19 History lisinopril 5 mg PO DAILY@12 11/10/19 11/10/19 History menthol-zinc oxide [Calmoseptine] 1 applic TOPICAL BID PRN 11/10/19 11/10/19 History ondansetron HCl 4 mg PO Q6H PRN 11/10/19 11/10/19 History Patient History Medical History (Updated 11/14/19 @ 15:41 by Hang Espinosa MD) Acute hypotension (Inactive) Acute renal failure (Inactive) Acute UTI (Inactive) Anemia transfused 2 units pRBCs on 11/11/2019. 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; takes chronic opiates Chronic respiratory failure with hypoxia and hypercapnia (Chronic) on home o2, 3 L continuously Chronic ulcer of buttock COPD (chronic obstructive pulmonary disease) (Chronic) DM II (diabetes mellitus, type II), controlled (Chronic) insulin pump HLD (hyperlipidemia) (Chronic) HTN (hypertension) (Chronic) Hypothyroid Morbid obesity with BMI of 60.0-69.9, adult NAFLD (nonalcoholic fatty liver disease) Obesity hypoventilation syndrome (Chronic) Psoriasis (Chronic) Recurrent UTI (urinary tract infection) Sepsis (Inactive) Surgical History Surgical history unknown Family History Father Lung disease Mother , some form of uterine disease? No problems noted. Social History Preferred Language: Citizen Of [place] Communication Ability: Effective Funeral Home Attendant Required: No Beliefs That Will Affect Care: None marital status: marital status details: Current Living Situation: Spouse and Family Current Living Situation Comment: Lives with and daughter. 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 HEENT exam is negative. Neck is supple with full carotid upstrokes. No obvious bruits. Jugular venous pressure is flat at 90 degrees. Cardiovascular exam reveals a regular rhythm with distant heart so unds. No obvious murmurs. Lungs are clear without rales, rhonchi, or wheezes. Abdomen is obese without bruits. Extremities reveal intact radial artery pulses bilaterally. Significant lower extremity edema noted. Results & Data ([facility]) Vital Signs (Past 12 Hours) Vital Signs Temp Pulse Pulse Resp BP Pulse Ox 11/14/19 14:59 86 11/14/19 11:37 37.6 C H 94 H 20 106/55 L 98 11/14/19 06:33 37.1 C 93 H 18 119/72 95 11/14/19 04:13 90 11/14/19 03:57 37.8 C H 72 19 97/59 L 99 Laboratory Results CBC notes a hemoglobin of 7.6, hematocrit 24.3, white count 12.57, and platelet count of [id number]. Electrolytes note a sodium of 138, potassium 4.7, chloride 101, bicarb 33, BUN 29, creatinine 1.62, and glucose of 138. Two troponin I levels were undetectable less than 0.015. Diagnostic Findings Initial EKG noted a poor quality tracing. There appeared to be normal sinus rhythm and low voltage throughout. A follow-up tracing noted normal sinus rhythm without abnormalities. PG Care Time/CCT Total # of Minutes Spent Total Time Spent with Patient: Total time spent is greater than 50% in coordination of care (as documented) at patient's floor/unit and/or counseling patient: Coding Level of Care Code 58717 Inpt Consult Level 4 Diagnoses Preoperative cardiovascular examination Z01.810 CAD (coronary artery disease) I25.10 Benign essential HTN I10 HLD (hyperlipidemia) E78.5
--- NOTE | 2019-11-14 15:53 | Pharmacy Report ---
Pharmacy Abx Dose Short Note - Date of Service November 14, 2019 - Assessment & Plan Assessment 64 year old F receiving [] for treatment of [] Day # []/[] of antimicrobial therapy. Plan Vancomycin * Trough level of [] mcg/mL is [therapeutic][subtherapeutic][supratherapeutic] * Continue dose of [] mg IV every [] hours OR Change to [] mg IV every [] hours * Goal trough level for [] : [] to [] mcg/mL * Trough or random level ordered for: []/[]/[] Pharmacy will continue to follow and will adjust dose/frequency as necessary. Thank you.
[2019-11-14] MEDS: INSULIN HUMAN NPH SC SCH (16:45)
[2019-11-14] MEDS: ATORVASTATIN 10 MG TAB PO SCH (20:49)
[2019-11-14] MEDS: OMEGA-3 (PURIFIED FISH OIL) 1 GM CAP PO SCH (20:49)
[2019-11-15] MEDS: PIPERACILLIN/TAZOBACTAM 4.5 GM in DEXTROSE 5% 100 ML IV SCH ×2 (04:38→12:20)
[2019-11-15] MEDS: MoRPHine SULFATE 2 MG/ML CARP IV PRN (05:31)
[2019-11-15] MEDS: LEVOTHYROXINE SODIUM 88 MCG TABLET PO SCH (05:45)
[2019-11-15 06:30] LABS: Creatinine Clr Calc Pharmacy 79.1 ml/min; Est GFR (Non-African American) 50.1
[2019-11-15] MEDS: ONDANSETRON 4 MG OD TAB PO PRN ×2 (07:35→14:25)
[2019-11-15] MEDS: FLUCONAZOLE 100 MG TAB PO SCH (07:36)
[2019-11-15] MEDS: PANTOprazole 40 MG TAB PO SCH (07:37)
[2019-11-15] MEDS: GABAPENTIN 300 MG CAP PO SCH ×3 (07:37→20:49)
[2019-11-15] MEDS: NYSTATIN POWDER 15GM BTL EXT SCH ×2 (07:37→20:52)
[2019-11-15] MEDS: UMECLIDINIUM BROMIDE 62.5MCG/BLISTER 7 PUFFS/INHALER INH SCH (07:38)
[2019-11-15] MEDS: FLUTICASONE/VILANTEROL 100/25MCG 14 PUFFS/INHALER INH SCH (07:38)
[2019-11-15] MEDS: BUMETANIDE 1 MG TAB PO SCH ×2 (07:38→17:47)
[2019-11-15 08:14] LABS: Calcium 9.5 mg/dl (8.5-10.1); Est GFR (African American) 59.9; Est GFR (Non-African American) 51.7; Potassium 3.9 mmol/L (3.5-5.1)
[2019-11-15] MEDS: OXYCODONE HCL IR 5 MG TAB (IMMEDIATE RELEASE) PO SCH ×4 (08:40→20:50)
[2019-11-15] MEDS: DOCUSATE SODIUM 100 MG CAP PO SCH ×2 (08:40→20:49)
[2019-11-15] MEDS: INSULIN HUMAN NPH SC SCH ×2 (08:43→17:44)
[2019-11-15] MEDS: INSULIN ASPART 100 UNITS/ML 3 ML PEN SC SCH ×4 (08:44→20:50)
--- NOTE | 2019-11-15 09:34 | Pharmacy Report ---
Pharmacy Glycemic Short Note 2 - Date of Service November 15, 2019 - Glycemic Short BSG Results (Last 24 hours): 11/14/19 11/14/19 11/14/19 11:37 16:06 19:40 Glucose POC Glucose 109 H 130 H 96 11/15/19 11/15/19 11/15/19 05:33 07:40 07:41 Glucose 60 L POC Glucose 64 L* 67 L* 11/15/19 08:01 Glucose POC Glucose 75 OUTPATIENT ANTIDIABETIC REGIMEN: * U500 insulin pump * A1c = 6.5% on 11/11/2019 ASSESSMENT: 11/14: * Patient received total of 95 units of insulin yesterday, all of which were basal insulin * BSGs yesterday range from 95-130 mg/dL - patient with very poor po intake noted * Despite decreasing basal insulin yesterday by ~20% BSGs lower this AM at 64 mg/dL - recheck 75 mg/dL * Will further decrease basal this AM d/t poor po intake and to hopefully avoid further hypoglycemia events 11/13: * Patient received total of 128 units of insulin yesterday, of which 115 were basal insulin * Fasting lower this AM at 95 mg/dL - per nurse patient has diet ordered however may attempt to go to OR - will therefore utilize lower NPH scale for this AM in anticipation for possible NPO status - appears patient refusing surgery. Will still scale back on NPH for lower fasting level this AM 11/12: * Patient received a total of 113 units of insulin yesterday, 105 of NPH, 8 of correctional with good control * BSGs ranged from 96-188 mg/dL * BSG 147 mg/dL this morning, within goal range, patient was NPO this morning for possible OR and therefore given reduced NPH dose this AM, resume higher dosing PM. Patient will be NPO at midnight for OR tomorrow, therefore have reduced tomorrow AM's NPH dose. PLAN FOR INPATIENT GLYCEMIC CONTROL: * Basal insulin - decrease * NPH 30 this AM * NPH 30-40 with dinner * Bolus insulin * NovoLog per scale ACHS or Q6hrs while NPO * Goal Range: Low 120 mg/dL - High 160 mg/dL * Correction Factor: 5 mg/dL/unit * No carb coverage PLAN FOR DISCHARGE: * Continue U-500 insulin pump upon patient discharge.
--- NOTE | 2019-11-15 10:28 | XCELERA ---
[id number]
--- NOTE | 2019-11-15 11:50 | Cardiology Progress Note ---
Date of Service November 15, 2019 Assessment & Plan (1) Preoperative cardiovascular examination: Fortunately, the patient demonstrates normal left ventricular systolic function on her echocardiogram. Feel that she is an acceptable cardiac risk for surgery. (2) CAD (coronary artery disease): Nonobstructive disease noted on cardiac catheterization in December 2009. There have been no issues from a coronary artery perspective since that time. (3) Benign essential HTN: Adequate control. (4) HLD (hyperlipidemia): Continue atorvastatin. Admission and Anticipated Discharge Date Admission Date: November 10, 2019 Subjective The patient is resting comfortably in bed without complaints of chest pain or dyspnea. We have discussed results of her echocardiogram. Physical Exam Physical Exam: In general this is a morbidly obese white female lying supine in bed without complaints. HEENT exam is negative. Neck is supple with full carotid upstrokes. No obvious bruits. Jugular venous pressure is flat at 90 degrees. Cardiovascular exam reveals a regular rhythm with distant heart sounds. No obvious murmurs. Lungs are clear without rales, rhonchi, or wheezes. Abdomen is obese without bruits. Extremities reveal intact radial artery pulses bilaterally. Significant lower extremity edema noted. Results & Data ([facility]) Vital Signs (Past 12 Hours) Vital Signs Temp Pulse Pulse Resp BP Pulse Ox 11/15/19 07:41 86 20 88/54 L 92 11/15/19 04:43 36.9 C 80 18 124/71 99 11/15/19 04:07 69 Diagnostic Findings Echocardiogram notes normal left ventricular systolic function without wall motion abnormalities. There is mild LVH and mild tricuspid regurgitation. PG Care Time/CCT Total # of Minutes Spent Total Time Spent with Patient: Total time spent is greater than 50% in coordination of care (as documented) at patient's floor/unit and/or counseling patient: Coding Level of Care Code 58361 Subseq Hosp Care Lvl 3 Diagnoses Preoperative cardiovascular examination Z01.810 CAD (coronary artery disease) I25.10 Benign essential HTN I10 HLD (hyperlipidemia) E78.5
[2019-11-15] MEDS: FERROUS SULFATE 325 MG TAB PO SCH (12:19)
[2019-11-15] MEDS: MAGNESIUM OXIDE 400 MG TAB PO SCH (12:20)
[2019-11-15] MEDS: ZINC SULFATE 220 MG CAPSULE PO SCH (12:20)
--- NOTE | 2019-11-15 15:45 | Surgery Progress Note ---
Date of Service November 15, 2019 Assessment & Plan (1) Decubital ulcer: We will plan tomorrow for decubiti debridement under general anesthesia. We discussed the procedure itself. We discussed the fact that she will need general anesthesia. We discussed the possible complication of bleeding. The wound care team can then further decide if additional therapy beyond local care will be necessary. Subjective Patient subjectively unchanged After multiple discussions with Dr. Hong and me she has decided to proceed with debridement of the back and buttock decubiti. She ate lunch Results & Data Vital Signs (Past 12 Hours) Vital Signs Temp Pulse Pulse Resp BP Pulse Ox 11/15/19 15:00 36.8 C 78 18 148/76 H 99 11/15/19 14:47 67 11/15/19 11:43 36.9 C 74 20 122/66 99 11/15/19 07:41 86 20 88/54 L 92 11/15/19 04:43 36.9 C 80 18 124/71 99 11/15/19 04:07 69
--- NOTE | 2019-11-15 17:36 | Hospitalist Progress Note ---
Date of Service November 15, 2019 Assessment & Plan (1) Sepsis: POA from buttocks ulcer/cellulitis -sepsis resolving - can narrow zosyn to unasyn no clear need for pseudomonal coverage at this time -blood culture x1 noted - since only 1/2 and coag negative staph - almost certainly contaminant. (2) Acute renal failure: Likely secondary to above problem - improved. probably more indicative of HOLLY on CKD - but improved. continue to follow - but now resolved and stable (3) Abnormal EKG: Noted on admission Repeat WNL No s/sx c/w ACS Trop negative echo reassuring (4) Acute hypotension: Likely related to infection/ anemia transfused 1 unit of PRBC. BP now has been acceptable, Hgb overall stable - CBC in AM (5) Cellulitis: Pressure ulcer of right & left buttock, stage unstageable, left heel, stage unstageable, and left lower lateral leg, stage unstageable. -change to unasyn -PT/OT eval and treat - she's currently not opposed to the idea of rehab setting to try to gain mobility (although she also is not entirely saying she would either) -now amenable to debridement - for tomorrow (6) Acute UTI: suspect contaminant related to chronic barboza not actual infection (7) Chronic pain syndrome: continue home meds -pain control seems OK (8) Chronic indwelling Barboza catheter: Related to bed bound status Hx of recurrent UTI noted Takes nitrofurantoin for UTI proph Holding during current abx Do not belive this to be the main problem as ulcers appear infected. (9) Hypertension: continue current regimen (bumex lowered to 0.5mg bid) and follow (10) Iron deficiency: continue home meds (11) Obesity hypoventilation syndrome: Noted - continue supportive care - airway seems to be biggest perioperative risk - anesthesia aware (12) Anemia: was as low as 6.5 - now improved post transfusion - continue to follow (slight downtrend, but no overt s/s blood loss) (13) DM II (diabetes mellitus, type II), controlled: Continue home pump A1c 6.5 sugars a little tight today, but overall acceptable (14) HLD (hyperlipidemia): continue home meds (15) Hypothyroid: continue home meds (16) DVT prophylaxis: SCDs, pt is bed bound at baseline Admission and Anticipated Discharge Date Admission Date: November 10, 2019 Subjective feeling about the same. still nervous about surgery but aware that we're not seeing anything that is a clear cardiac contraindication - open with pt about airway risk and possible need for post op vent or bipap - but also discussed that without going about this as completely as we can, she is likely to be suffe ring with this wound indefinitely and progressively. no other new complaints Review of Systems Review of Systems: All systems reviewed & are unremarkable except as noted in HPI & below Physical Exam Physical Exam: gen aao pleasant nad heent nc at mmm breathing unlabored no accessory muscles good effort skin no rashes no pallor or icterus sacral ulcer not able to be visualized today due to positioning Results & Data Results & Data ([facility]) Vital Signs (Past 12 Hours) Vital Signs Temp Pulse Pulse Resp BP Pulse Ox 11/15/19 15:00 98.2 F 78 18 148/76 H 99 11/15/19 14:47 67 11/15/19 11:43 98.4 F 74 20 122/66 99 11/15/19 07:41 86 20 88/54 L 92 PG Care Time/CCT Total # of Minutes Spent Total Time Spent with Patient: Total time spent is greater than 50% in coordination of care (as documented) at patient's floor/unit and/or counseling patient: Coding Level of Care Code 28331 Subseq Hosp Care Lvl 3 Diagnoses Sepsis A41.9 Acute renal failure N17.9 Acute renal failure type: unspecified Abnormal EKG R94.31 Acute hypotension I95.9 Cellulitis L03.90 Site of cellulitis: unspecified site Acute UTI N39.0 Chronic pain syndrome G89.4 Chronic indwelling Barboza catheter Z96.0 Hypertension I10 Hypertension type: essential hypertension Iron deficiency E61.1 Obesity hypoventilation syndrome E66.2 Anemia D64.9 DM II (diabetes mellitus, type II), controlled E11.29; Z79.4 Diabetes mellitus longterm insulin use: with longterm use Diabetes mellitus complication status: with kidney complications Diabetes mellitus complication detail: with other kidney complication HLD (hyperlipidemia) E78.5 Hypothyroid E03.9 Hypothyroidism type: unspecified DVT prophylaxis Z29.9 (1) Acute renal failure Acute renal failure type: unspecified Qualified Code(s): N17.9 - Acute kidney failure, unspecified (2) Cellulitis Site of cellulitis: unspecified site Qualified Code(s): L03.90 - Cellulitis, unspecified (3) Hypertension Hypertension type: essential hypertension Qualified Code(s): I10 - Essential (primary) hypertension (4) DM II (diabetes mellitus, type II), controlled 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
[2019-11-15] MEDS: OMEGA-3 (PURIFIED FISH OIL) 1 GM CAP PO SCH (20:49)
[2019-11-15] MEDS: ATORVASTATIN 10 MG TAB PO SCH (20:50)
[2019-11-15] MEDS: AMPICILLIN/SULBACTAM SOD 1,500 MG in 0.9 % SODIUM CHLORIDE 100 ML IV SCH (20:53)
[2019-11-16] MEDS ORDERED: INSULIN ASPART 100 UNITS/ML 3 ML PEN SC SCH
[2019-11-16] MEDS: AMPICILLIN/SULBACTAM SOD 1,500 MG in 0.9 % SODIUM CHLORIDE 100 ML IV SCH ×2 (02:29→07:40)
[2019-11-16] MEDS: LEVOTHYROXINE SODIUM 88 MCG TABLET PO SCH (05:51)
[2019-11-16 06:02] LABS: Basophils # (auto) 0.08 K/uL (0-0.2); Basophils % (auto) 0.6 %; Eosinophils # (auto) 0.29 K/uL (0-0.5); Hematocrit (blood only) 27.1 % (37-47); Hemoglobin 8.3 g/dL (12.0-16.0); Immature Granulocytes # (auto) 0.66 K/uL (0.00-0.02); Immature Granulocytes % (auto) 4.6 %; Lymphocytes % (auto) 9.7 %; Mean Corpuscular Hemoglobin 28.3 pg (25-34); Mean Corpuscular Hgb Conc 30.6 g/dL (32-36); Mean Corpuscular Volume 92.5 fL (80-100); Mean Platelet Volume 8.3 fL (7.4-10.4); Monocytes % (auto) 6.9 %; Neutrophils # (auto) 10.99 K/uL (1.4-6.5); Neutrophils % (auto) 76.2 %; Platelet Count 352 K/uL (130-400); RDW Standard Deviation 53.7 fL (36.4-46.3); Red Blood Count 2.93 M/uL (4.2-5.4); White Blood Count 14.42 K/uL (4.8-10.8)
[2019-11-16 06:35] LABS: Calcium 9.4 mg/dl (8.5-10.1); Creatinine Clr Calc Pharmacy 86.3 ml/min; Est GFR (African American) 65.5; Est GFR (Non-African American) 56.5; Potassium 4.1 mmol/L (3.5-5.1)
[2019-11-16] MEDS: INSULIN HUMAN NPH SC SCH ×2 (07:42→17:09)
[2019-11-16] MEDS: BUMETANIDE 1 MG TAB PO SCH ×2 (07:43→16:42)
[2019-11-16] MEDS: INSULIN ASPART 100 UNITS/ML 3 ML PEN SC SCH ×4 (07:43→21:34)
[2019-11-16] MEDS: FLUCONAZOLE 100 MG TAB PO SCH (07:43)
[2019-11-16] MEDS: FLUTICASONE/VILANTEROL 100/25MCG 14 PUFFS/INHALER INH SCH (07:43)
[2019-11-16] MEDS: UMECLIDINIUM BROMIDE 62.5MCG/BLISTER 7 PUFFS/INHALER INH SCH (07:43)
[2019-11-16] MEDS: DOCUSATE SODIUM 100 MG CAP PO SCH ×2 (07:43→21:33)
[2019-11-16] MEDS: OXYCODONE HCL IR 5 MG TAB (IMMEDIATE RELEASE) PO SCH ×4 (07:44→20:20)
[2019-11-16] MEDS: NYSTATIN POWDER 15GM BTL EXT SCH ×2 (07:44→20:18)
[2019-11-16] MEDS: PANTOprazole 40 MG TAB PO SCH (07:44)
[2019-11-16] MEDS: GABAPENTIN 300 MG CAP PO SCH ×3 (07:44→20:18)
[2019-11-16] MEDS: ONDANSETRON INJ 2 MG/ML 2 ML VIAL IV PRN (07:48)
--- NOTE | 2019-11-16 09:55 | Pharmacy Report ---
Pharmacy Glycemic Short Note 2 - Date of Service November 16, 2019 - Glycemic Short BSG Results (Last 24 hours): 11/15/19 11/15/19 11/15/19 11:41 16:47 20:13 Glucose POC Glucose 111 H 114 H 212 H 11/15/19 11/16/19 11/16/19 23:49 05:48 06:31 Glucose 93 POC Glucose 170 H 101 H 11/16/19 07:36 Glucose POC Glucose 100 H OUTPATIENT ANTIDIABETIC REGIMEN: * U500 insulin pump * A1c = 6.5% on 11/11/2019 ASSESSMENT: 11/15: * Patient received total of 77 units of insulin yesterday, of which 65 were basal insulin * Fasting BSG this am 101 mg/dL - patient NPO this AM for I&D - will decrease AM NPH by ~20%. Likely diet to be resumed after / will continue with NPH scale for dinner time * Continue with same CF - had added very loose CR yesterday so that po intake could be monitored more closely 11/14: * Patient received total of 95 units of insulin yesterday, all of which were basal insulin * BSGs yesterday range from 95-130 mg/dL - patient with very poor po intake noted * Despite decreasing basal insulin yesterday by ~20% BSGs lower this AM at 64 mg/dL - recheck 75 mg/dL * Will further decrease basal this AM d/t poor po intake and to hopefully avoid further hypoglycemia events 11/13: * Patient received total of 128 units of insulin yesterday, of which 115 were basal insulin * Fasting lower this AM at 95 mg/dL - per nurse patient has diet ordered however may attempt to go to OR - will therefore utilize lower NPH scale for this AM in anticipation for possible NPO status - appears patient refusing surgery. Will still scale back on NPH for lower fasting level this AM 11/12: * Patient received a total of 113 units of insulin yesterday, 105 of NPH, 8 of correctional with good control * BSGs ranged from 96-188 mg/dL * BSG 147 mg/dL this morning, within goal range, patient was NPO this morning for possible OR and therefore given reduced NPH dose this AM, resume higher dosing PM. Patient will be NPO at midnight for OR tomorrow, therefore have reduced tomorrow AM's NPH dose. PLAN FOR INPATIENT GLYCEMIC CONTROL: * Basal insulin - decrease * NPH 25 units this AM * NPH 25-35 with dinner * Bolus insulin * NovoLog per scale ACHS or Q6hrs while NPO * Goal Range: Low 120 mg/dL - High 160 mg/dL * Correction Factor: 5 mg/dL/unit * Carb ratio: 1 unit / 45 gm CHO PLAN FOR DISCHARGE: * Continue U-500 insulin pump upon patient discharge.
--- NOTE | 2019-11-16 10:34 | History & Physical Bridge Note ---
Date of Service November 16, 2019 History & Physical Bridge Note I have examined the patient, reviewed the History & Physical and in the interval since the performance of the History & Physical I have noted the following changes of clinical significance: no changes noted
[2019-11-16] MEDS ORDERED: fentaNYL citrate 100 MCG/2 ML VIAL ONE ×2 (10:43→15:19)
[2019-11-16] MEDS: ZINC SULFATE 220 MG CAPSULE PO SCH (11:10)
[2019-11-16] MEDS: FERROUS SULFATE 325 MG TAB PO SCH (11:10)
[2019-11-16] MEDS: MAGNESIUM OXIDE 400 MG TAB PO SCH (11:10)
[2019-11-16] MEDS ORDERED: PHENYLEPHRINE 100MCG/ML 5ML SYR ONE (13:39)
[2019-11-16] MEDS ORDERED: METOPROLOL TARTRATE 1 MG/ML VIAL IV ONE (13:47)
[2019-11-16] MEDS ORDERED: ONDANSETRON INJ 2 MG/ML 2 ML VIAL ONE (14:15)
[2019-11-16] MEDS ORDERED: PROPOFOL IV EMULSION 10 MG/ML 20 ML VIAL IV ONE (14:15)
--- NOTE | 2019-11-16 14:48 | Post Operative Brief Note ---
Immediate Post Op Note v1 Date of Surgery November 16, 2019 Pre & Post Diagnosis Operation Date: 11/16/19 08:30 Pre-Op Diagnosis: lower back and bilateral buttock ulcer Post-Op Diagnosis: lower back and bilateral buttock ulcer I identified the patient and participated in the time-out.: Yes Procedure Operation Date: 11/16/19 08:30 Actual Procedures p Debridement of Buttock and Sacral Decubitus, Application of Wound Vac(Not Applicable) - Anil Kay MD Surgeon Anil Kay MD Offal Icer Poultry None Estimated Blood Loss 20 Findings Consistent with Post-Op Diagnosis
--- NOTE | 2019-11-16 15:11 | Operative Report (OR) ---
DATE OF OPERATION: 11/16/2019 PREOPERATIVE DIAGNOSIS: Sacral and buttock decubiti. POSTOPERATIVE DIAGNOSIS: Same. PROCEDURE: Debridement of sacral and buttock decubiti. SURGEON: Anil Kay FINDINGS: The patient had 4 separate decubiti that were away from each other by skin bridges ranging from 1-3 cm. There was a decubitus on the right buttock that measured 10 x 8 x 3 cm. There was 1 in the left buttock measuring 7 x 3 x 1.5 cm. There was 1 in the inferior aspect of the right buttock that measured 9 x 7 x 3 cm and 1 in the left upper medial thigh that was 7 x 2 x 1.5 cm. TECHNIQUE: The patient was given a general anesthetic and positioned prone. The area was prepped and draped in the usual sterile fashion. Each of the decubiti were debrided in a similar fashion. The edges of the decubiti was sharply opened and carried down into the deeper tissues until healthy fat was obvious. The tissue was then peeled off the underlying tissue. Then, the right inferior buttock area required additional dissection on the medial aspect in order to excise all of the necrotic skin and subcutaneous tissue. All of the dissections were carried deeply until normal fat was identified. Once all of the tissue was removed then meticulous hemostasis was obtained using extensive electrocautery. On the right inferior buttock decubitus it required a [id number] suture superiorly to control the bleeding. The decubiti were completely debrided of all tissue. Once hemostasis was obtained, the wound care service placed a wound VAC. The estimated blood loss was 20 mL. Sponge, needle and instrument counts were correct prior to closure. The patient tolerated the surgical procedure without complication and was transferred to recovery. I attest to the content of the Intraoperative Record and any orders documented therein. Any exception s are noted below.
[2019-11-16] MEDS: AMPICILLIN/SULBACTAM SOD 3,000 MG in 0.9 % SODIUM CHLORIDE 100 ML IV SCH ×2 (16:53→21:33)
--- NOTE | 2019-11-16 17:19 | Anesthesiology Progress Note ---
Date of Service November 16, 2019 Anesthesia Post Procedure Vital Signs Vital Signs: Temp Pulse Pulse Pulse Resp BP BP 11/16/19 16:58 36.7 C 80 18 143/69 H 11/16/19 16:45 36.7 C 74 16 116/64 11/16/19 15:55 36.6 C 80 17 121/70 11/16/19 15:45 78 20 123/71 11/16/19 15:36 36.6 C 78 16 147/54 H 11/16/19 11:48 37.5 C 11/16/19 11:15 37.8 C H 78 20 155/77 H 11/16/19 07:23 72 11/16/19 07:14 36.7 C 76 16 147/69 H 11/16/19 03:15 36.9 C 77 18 118/53 L 11/16/19 02:06 68 11/15/19 23:31 37.1 C 72 18 143/75 H 11/15/19 19:00 36.8 C 76 17 118/50 L 11/15/19 17:48 71 110/68 Pulse Ox 11/16/19 16:58 100 11/16/19 16:45 96 11/16/19 15:55 100 11/16/19 15:45 100 11/16/19 15:36 100 11/16/19 11:48 11/16/19 11:15 100 11/16/19 07:23 11/16/19 07:14 100 11/16/19 03:15 100 11/16/19 02:06 11/15/19 23:31 100 11/15/19 19:00 99 11/15/19 17:48 Pain Intensity Generalized: Pain Intensity: 9 Left Buttock: Pain Intensity: 8 Bilateral Back: Pain Intensity: 8 Back: Pain Intensity: 9 Transfer of Care Handoff Completed per policy Notes Mental Status: alert / awake / arousable and participated in evaluation Patient Amnestic to Procedure: Yes Nausea / Vomiting: adequately controlled Pain: adequately controlled Airway Patency, RR, SpO2: stable & adequate BP & HR: stable & adequate Hydration State: stable & adequate Anesthetic Complications: no major complications apparent and Pt Satisfied with anesthetic care
[2019-11-16] MEDS: ACETAMINOPHEN 325 MG TAB PO PRN (18:21)
--- NOTE | 2019-11-16 19:05 | Hospitalist Progress Note ---
Date of Service November 16, 2019 Assessment & Plan (1) Sepsis: POA from buttocks ulcer/cellulitis -sepsis improving overall continue unasyn, now post op -blood culture x1 noted - since only 1/2 and coag negative staph - almost certainly contaminant. (2) Acute renal failure: Likely secondary to above problem - improved. probably more indicative of HOLLY on CKD - but improved. continue to follow - but now resolved and stable (3) Abnormal EKG: Noted on admission Repeat WNL No s/sx c/w ACS Trop negative echo reassuring likely just asypmtomatic baseline changes (4) Acute hypotension: Likely related to infection/ anemia transfused 1 unit of PRBC. now overall improved and stable (5) Cellulitis: Pressure ulcer of right & left buttock, stage unstageable, left heel, stage unstageable, and left lower lateral leg, stage unstageable. -continue unasyn -now postop -PT/OT eval and treat - she's currently not opposed to the idea of rehab setting to try to gain mobility (although she also is not entirely saying she would either) (6) Acute UTI: suspect contaminant related to chronic barboza not actual infection (7) Chronic pain syndrome: continue home meds -pain control seems OK -follow closely w postop pain but right now doing reasonably well (8) Chronic indwelling Barboza catheter: Related to bed bound status Hx of recurrent UTI noted Takes nitrofurantoin for UTI proph Holding during current abx Do not belive this to be the main problem as ulcers appear infected. (9) Hypertension: continue current regimen (bumex now 0.5mg bid) and follow (10) Iron deficiency: continue home meds (11) Obesity hypoventilation syndrome: Noted - continue supportive care - did well perioperatively (12) Anemia: was as low as 6.5 - now improved post transfusion - continue to follow (13) DM II (diabetes mellitus, type II), controlled: Continue home pump A1c 6.5 sugars acceptable, but overall acceptable (14) HLD (hyperlipidemia): continue home meds (15) Hypothyroid: continue home meds (16) DVT prophylaxis: SCDs, pt is bed bound at baseline Admission and Anticipated Discharge Date Admission Date: November 10, 2019 Subjective seen post op - main complaints are just being sore and feeling sleepy - but overall did well and no other new complaints. Review of Systems Review of Systems: All systems reviewed & are unremarkable except as noted in HPI & below Physical Exam Physical Exam: gen aao pleasant nad heent nc at mmm breathing unlabored no accessory muscles good effort skin no rashes no pallor or icterus wound not visualized but wound vac in place Results & Data Results & Data ([facility]) Vital Signs (Past 12 Hours) Vital Signs Temp Pulse Pulse Pulse Resp BP BP 11/16/19 18:22 72 11/16/19 18:00 98.1 F 75 18 138/61 11/16/19 17:27 98.1 F 72 18 135/74 11/16/19 16:58 98.1 F 80 18 143/69 H 11/16/19 16:45 98.1 F 74 16 116/64 11/16/19 15:55 97.9 F 80 17 121/70 11/16/19 15:45 78 20 123/71 11/16/19 15:36 97.9 F 78 16 147/54 H 11/16/19 11:48 99.5 F 11/16/19 11:15 100.0 F H 78 20 155/77 H 11/16/19 07:23 72 11/16/19 07:14 98.1 F 76 16 147/69 H Pulse Ox 11/16/19 18:22 11/16/19 18:00 100 11/16/19 17:27 98 11/16/19 16:58 100 11/16/19 16:45 96 11/16/19 15:55 100 11/16/19 15:45 100 11/16/19 15:36 100 11/16/19 11:48 11/16/19 11:15 100 11/16/19 07:23 11/16/19 07:14 100 PG Care Time/CCT Total # of Minutes Spent Total Time Spent with Patient: Total time spent is greater than 50% in coordination of care (as documented) at patient's floor/unit and/or counseling patient: Coding Level of Care Code 26118 Subseq Hosp Care Lvl 2 Diagnoses Sepsis A41.9 Acute renal failure N17.9 Acute renal failure type: unspecified Abnormal EKG R94.31 Acute hypotension I95.9 Cellulitis L03.90 Site of cellulitis: unspecified site Acute UTI N39.0 Chronic pain syndrome G89.4 Chronic indwelling Barboza catheter Z96.0 Hypertension I10 Hypertension type: essential hypertension Iron deficiency E61.1 Obesity hypoventilation syndrome E66.2 Anemia D64.9 DM II (diabetes mellitus, type II), controlled E11.29; Z79.4 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: with group home use Diabetes mellitus complication status: with kidney complications Diabetes mellitus complication detail: with other kidney complication HLD (hyperlipidemia) E78.5 Hypothyroid E03.9 Hypothyroidism type: unspecified DVT prophylaxis Z29.9 (1) Acute renal failure Acute renal failure type: unspecified Qualified Code(s): N17.9 - Acute kidney failure, unspecified (2) Cellulitis Site of cellulitis: unspecified site Qualified Code(s): L03.90 - Cellulitis, unspecified (3) Hypertension Hypertension type: essential hypertension Qualified Code(s): I10 - Essential (primary) hypertension (4) DM II (diabetes mellitus, type II), controlled Diabetes mellitus group home insulin use: with group home use Diabetes mellitus complication status: with kidney complications Diabetes mellitus complication detail: with other kidney complication Qualified Code(s): E11.29 - Type 2 diabetes mellitus with other diabetic kidney complication; Z79.4 - 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
[2019-11-16] MEDS: ONDANSETRON 4 MG OD TAB PO PRN (19:50)
[2019-11-16] MEDS: OMEGA-3 (PURIFIED FISH OIL) 1 GM CAP PO SCH (20:19)
[2019-11-16] MEDS: ATORVASTATIN 10 MG TAB PO SCH (20:19)
[2019-11-17] MEDS ORDERED: INSULIN ASPART 100 UNITS/ML 3 ML PEN SC SCH
[2019-11-17] MEDS: MoRPHine SULFATE 2 MG/ML CARP IV PRN ×3 (00:49→22:16)
[2019-11-17] MEDS ORDERED: MoRPHine SULFATE 4 MG/ML 1 ML CARP\\VIAL IV STA (02:41)
[2019-11-17] MEDS: AMPICILLIN/SULBACTAM SOD 3,000 MG in 0.9 % SODIUM CHLORIDE 100 ML IV SCH ×4 (05:08→22:05)
[2019-11-17] MEDS: LEVOTHYROXINE SODIUM 88 MCG TABLET PO SCH (05:56)
[2019-11-17] MEDS: OXYCODONE HCL IR 5 MG TAB (IMMEDIATE RELEASE) PO SCH ×4 (07:34→20:31)
[2019-11-17] MEDS: FLUCONAZOLE 100 MG TAB PO SCH (07:35)
[2019-11-17] MEDS: PANTOprazole 40 MG TAB PO SCH (07:35)
[2019-11-17] MEDS: DOCUSATE SODIUM 100 MG CAP PO SCH ×2 (07:35→20:32)
[2019-11-17] MEDS: BUMETANIDE 1 MG TAB PO SCH ×2 (07:37→17:10)
[2019-11-17] MEDS: UMECLIDINIUM BROMIDE 62.5MCG/BLISTER 7 PUFFS/INHALER INH SCH (07:37)
[2019-11-17] MEDS: FLUTICASONE/VILANTEROL 100/25MCG 14 PUFFS/INHALER INH SCH (07:37)
[2019-11-17] MEDS: GABAPENTIN 300 MG CAP PO SCH ×3 (07:38→19:40)
[2019-11-17] MEDS: NYSTATIN POWDER 15GM BTL EXT SCH ×3 (07:39→19:43)
[2019-11-17] MEDS: INSULIN HUMAN NPH SC SCH ×2 (07:53→17:12)
[2019-11-17] MEDS: INSULIN ASPART 100 UNITS/ML 3 ML PEN SC SCH ×4 (07:53→20:32)
--- NOTE | 2019-11-17 08:05 | Surgery Progress Note ---
Date of Service November 17, 2019 Assessment & Plan (1) Decubital ulcer: POD#1 debridement of sacral and back decubiti AM labs pending Continues on IV abx Appreciate wound care for their assistance, likely continuation of vac management Patient seen and examined with Dr. Sparrow Subjective Patient feels uncomfortable with vac, but otherwise offers no complaints. Physical Exam Physical Exam: awake/alert Skin: vac system in place Results & Data Vital Signs (Past 12 Hours) Vital Signs Temp Pulse Pulse Resp BP Pulse Ox 11/17/19 07:21 36.8 C 81 18 155/74 H 99 11/17/19 07:17 79 11/17/19 03:49 36.8 C 80 18 139/59 L 100 11/17/19 01:50 84 11/16/19 23:43 37 C 84 20 145/77 H 100 PG Care Time/CCT Total # of Minutes Spent Total Time Spent with Patient: Total time spent is greater than 50% in coordination of care (as documented) at patient's floor/unit and/or counseling patient: Coding Level of Care Code 45108 Subseq Hosp Care Lvl 1 Diagnoses Decubital ulcer L89.90
[2019-11-17 08:07] LABS: Basophils # (auto) 0.07 K/uL (0-0.2); Basophils % (auto) 0.4 %; Eosinophils # (auto) 0.16 K/uL (0-0.5); Hematocrit (blood only) 27.7 % (37-47); Hemoglobin 8.5 g/dL (12.0-16.0); Immature Granulocytes # (auto) 0.72 K/uL (0.00-0.02); Immature Granulocytes % (auto) 4.4 %; Lymphocytes # (auto) 1.09 K/uL (1.2-3.4); Lymphocytes % (auto) 6.6 %; Mean Corpuscular Hemoglobin 28.2 pg (25-34); Mean Corpuscular Hgb Conc 30.7 g/dL (32-36); Mean Platelet Volume 8.6 fL (7.4-10.4); Monocytes # (auto) 0.76 K/uL (0.11-0.59); Monocytes % (auto) 4.6 %; Neutrophils # (auto) 13.64 K/uL (1.4-6.5); Platelet Count 396 K/uL (130-400); RDW Standard Deviation 53.9 fL (36.4-46.3); Red Blood Count 3.01 M/uL (4.2-5.4); White Blood Count 16.44 K/uL (4.8-10.8)
[2019-11-17 08:23] LABS: BUN Creatinine Ratio 12.2 (10-20); Calcium 9.4 mg/dl (8.5-10.1); Est GFR (Non-African American) 69.9; Potassium 3.8 mmol/L (3.5-5.1)
--- NOTE | 2019-11-17 08:58 | Pharmacy Report ---
Pharmacy Glycemic Short Note 2 - Date of Service November 17, 2019 - Glycemic Short BSG Results (Last 24 hours): 11/16/19 11/16/19 11/16/19 11:13 15:49 20:25 Glucose POC Glucose 96 104 H 101 H 11/16/19 11/17/19 11/17/19 23:43 07:26 07:38 Glucose 114 H POC Glucose 100 H 124 H OUTPATIENT ANTIDIABETIC REGIMEN: * U500 insulin pump * A1c = 6.5% on 11/11/2019 ASSESSMENT: 11/16: * Patient received total of 25 units of insulin yesterday, all basal insulin. * Fasting BSG this am 124 mg/dL - patient not consuming any carbohydrates per nursing documentation. * Continue insulin doses at this time, may need to adjust as PO consumption increases. 11/15: * Patient received total of 77 units of insulin yesterday, of which 65 were basal insulin * Fasting BSG this am 101 mg/dL - patient NPO this AM for I&D - will decrease AM NPH by ~20%. Likely diet to be resumed after / will continue with NPH scale for dinner time * Continue with same CF - had added very loose CR yesterday so that po intake could be monitored more closely 11/14: * Patient received total of 95 units of insulin yesterday, all of which were basal insulin * BSGs yesterday range from 95-130 mg/dL - patient with very poor po intake noted * Despite decreasing basal insulin yesterday by ~20% BSGs lower this AM at 64 mg/dL - recheck 75 mg/dL * Will further decrease basal this AM d/t poor po intake and to hopefully avoid further hypoglycemia events 11/13: * Patient received total of 128 units of insulin yesterday, of which 115 were basal insulin * Fasting lower this AM at 95 mg/dL - per nurse patient has diet ordered however may attempt to go to OR - will therefore utilize lower NPH scale for this AM in anticipation for possible NPO status - appears patient refusing surgery. Will still scale back on NPH for lower fasting level this AM 11/12: * Patient received a total of 113 units of insulin yesterday, 105 of NPH, 8 of correctional with good control * BSGs ranged from 96-188 mg/dL * BSG 147 mg/dL this morning, within goal range, patient was NPO this morning for possible OR and therefore given reduced NPH dose this AM, resume higher dosing PM. Patient will be NPO at midnight for OR tomorrow, therefore have reduced tomorrow AM's NPH dose. PLAN FOR INPATIENT GLYCEMIC CONTROL: * Basal insulin: BID with meals - decreased last evening * NPH 15 units for BSG < 140mg/dl * NPH 20 units for BSG 140-180mg/dl * NPH 25 units for BSG > 180mg/dl * Bolus insulin * NovoLog per scale ACHS or Q6hrs while NPO * Goal Range: Low 120 mg/dL - High 160 mg/dL * Correction Factor: 5 mg/dL/unit * Carb ratio: 1 unit / 45 gm CHO PLAN FOR DISCHARGE: * Continue U-500 insulin pump upon patient discharge.
[2019-11-17] MEDS: ONDANSETRON INJ 2 MG/ML 2 ML VIAL IV PRN (08:59)
[2019-11-17] MEDS ORDERED: CYANOCOBALAMIN 1000 MCG/ML VIAL IM SCH (09:00)
[2019-11-17] MEDS: ACETAMINOPHEN 325 MG TAB PO PRN ×2 (11:28→15:58)
[2019-11-17] MEDS: FERROUS SULFATE 325 MG TAB PO SCH (11:28)
[2019-11-17] MEDS: MAGNESIUM OXIDE 400 MG TAB PO SCH (11:29)
[2019-11-17] MEDS: ZINC SULFATE 220 MG CAPSULE PO SCH (11:29)
--- NOTE | 2019-11-17 13:14 | Anesthesiology Progress Note ---
Date of Service November 17, 2019 Anesthesia Post Procedure Vital Signs Vital Signs: Temp Pulse Pulse Pulse Resp BP BP 11/17/19 12:06 36.7 C 84 18 117/53 L 11/17/19 07:21 36.8 C 81 18 155/74 H 11/17/19 07:17 79 11/17/19 03:49 36.8 C 80 18 139/59 L 11/17/19 01:50 84 11/16/19 23:43 37 C 84 20 145/77 H 11/16/19 20:00 36.8 C 77 18 134/66 11/16/19 18:58 36.8 C 73 18 127/76 11/16/19 18:22 72 11/16/19 18:00 36.7 C 75 18 138/61 11/16/19 17:27 36.7 C 72 18 135/74 11/16/19 16:58 36.7 C 80 18 143/69 H 11/16/19 16:45 36.7 C 74 16 116/64 11/16/19 15:55 36.6 C 80 17 121/70 11/16/19 15:45 78 20 123/71 11/16/19 15:36 36.6 C 78 16 147/54 H Pulse Ox 11/17/19 12:06 99 11/17/19 07:21 99 11/17/19 07:17 11/17/19 03:49 100 11/17/19 01:50 11/16/19 23:43 100 11/16/19 20:00 100 11/16/19 18:58 100 11/16/19 18:22 11/16/19 18:00 100 11/16/19 17:27 98 11/16/19 16:58 100 11/16/19 16:45 96 11/16/19 15:55 100 11/16/19 15:45 100 11/16/19 15:36 100 Pain Intensity Generalized: Pain Intensity: 9 Left Buttock: Pain Intensity: 8 Bilateral Back: Pain Intensity: 8 Back: Pain Intensity: 9 Right Leg: Pain Intensity: 7 Medial Buttock: Pain Intensity: 6 Transfer of Care Handoff Completed per policy Notes Mental Status: see notes below Patient Amnestic to Procedure: Yes Nausea / Vomiting: adequately controlled Pain: adequately controlled Airway Patency, RR, SpO2: stable & adequate BP & HR: stable & adequate Hydration State: stable & adequate Anesthetic Complications: no major complications apparent Notes: Pt sleeping comfortably in her room.
--- NOTE | 2019-11-17 15:05 | Hospitalist Progress Note ---
Date of Service November 17, 2019 Assessment & Plan (1) Sepsis: POA from buttocks ulcer/cellulitis -sepsis improving overall continue unasyn, now post op -- suspect bump in WBC more related to surgery than true clinical worsening -blood culture x1 noted - since only 1/2 and coag negative staph - almost certainly contaminant. (2) Acute renal failure: Likely secondary to above problem - improved. probably more indicative of HOLLY on CKD - but improved. continue to follow - but now resolved and stable (Cr overall shows good improvement) (3) Abnormal EKG: Noted on admission Repeat WNL No s/sx c/w ACS Trop negative echo reassuring likely just asypmtomatic baseline changes (4) Acute hypotension: Likely related to infection/ anemia transfused 1 unit of PRBC. now overall improved and stable - vitals have been stable periop (5) Cellulitis: Pressure ulcer of right & left buttock, stage unstageable, left heel, stage unstageable, and left lower lateral leg, stage unstageable. -continue unasyn - see above w WBC - continue current care and follow -now postop -PT/OT eval and treat - she's currently not opposed to the idea of rehab setting to try to gain mobility (although she also is not entirely saying she would either) (6) Acute UTI: suspect contaminant related to chronic barboza not actual infection (7) Chronic pain syndrome: continue home meds -pain control seems OK -follow closely w postop pain but right now doing reasonably well (8) Chronic indwelling Barboza catheter: Related to bed bound status Hx of recurrent UTI noted Takes nitrofurantoin for UTI proph Holding during current abx Do not belive this to be the main problem as ulcers appear infected. (9) Hypertension: continue current regimen (bumex now 0.5mg bid) and follow (10) Iron deficiency: continue home meds (11) Obesity hypoventilation syndrome: Noted - continue supportive care - did well perioperatively (12) Anemia: was as low as 6.5 - now improved post transfusion - continue to follow periodically (13) DM II (diabetes mellitus, type II), controlled: Continue home pump A1c 6.5 sugars remain reasonable (14) HLD (hyperlipidemia): continue home meds (15) Hypothyroid: continue home meds (16) DVT prophylaxis: SCDs, pt is bed bound at baseline Admission and Anticipated Discharge Date Admission Date: November 10, 2019 Subjective sleeping comfortably no new issues when i saw her. later nursing notes that she felt like she was leaking around barboza - and was due for change. dagmar burgos had stool contaminate wound vac - right now off. Review of Systems Review of Systems: All systems reviewed & are unremarkable except as noted in HPI & below Physical Exam Physical Exam: gen sleeping nad heent nc at mmm breathing unlabored no pallor or icterus no focal neuro deficits at rest Results & Data Results & Data ([facility]) Vital Signs (Past 12 Hours) Vital Signs Temp Pulse Pulse Resp BP Pulse Ox 11/17/19 12:06 98.1 F 84 18 117/53 L 99 11/17/19 07:21 98.2 F 81 18 155/74 H 99 11/17/19 07:17 79 11/17/19 03:49 98.2 F 80 18 139/59 L 100 PG Care Time/CCT Total # of Minutes Spent Total Time Spent with Patient: Total time spent is greater than 50% in coordination of care (as documented) at patient's floor/unit and/or counseling patient: Coding Level of Care Code 77213 Subseq Hosp Care Lvl 2 Diagnoses Sepsis A41.9 Acute renal failure N17.9 Acute renal failure type: unspecified Abnormal EKG R94.31 Acute hypotension I95.9 Cellulitis L03.90 Site of cellulitis: unspecified site Acute UTI N39.0 Chronic pain syndrome G89.4 Chronic indwelling Barboza catheter Z96.0 Hypertension I10 Hypertension type: essential hypertension Iron deficiency E61.1 Obesity hypoventilation syndrome E66.2 Anemia D64.9 DM II (diabetes mellitus, type II), controlled E11.29; Z79.4 Diabetes mellitus oysterman insulin use: with oysterman use Diabetes mellitus complication status: with kidney complications Diabetes mellitus complication detail: with other kidney complication HLD (hyperlipidemia) E78.5 Hypothyroid E03.9 Hypothyroidism type: unspecified DVT prophylaxis Z29.9 (1) Acute renal failure Acute renal failure type: unspecified Qualified Code(s): N17.9 - Acute kidney failure, unspecified (2) Cellulitis Site of cellulitis: unspecified site Qualified Code(s): L03.90 - Cellulitis, unspecified (3) Hypertension Hypertension type: essential hypertension Qualified Code(s): I10 - Essential (primary) hypertension (4) DM II (diabetes mellitus, type II), controlled Diabetes mellitus oysterman insulin use: with oysterman use Diabetes mellitus complication status: with kidney complications Diabetes mellitus complication detail: with other kidney complication Qualified Code(s): E11.29 - Type 2 diabetes mellitus with other diabetic kidney complication; Z79.4 - long term care phlebotomist (current) use of insulin (5) Hypothyroid Hypothyroidism type: unspecified Qualified Code(s): E03.9 - Hypothyroidism, unspecified
[2019-11-17] MEDS: BISMUTH SUBSALICYLATE SUSP PO PRN ×2 (15:58→18:30)
[2019-11-17] MEDS: OMEGA-3 (PURIFIED FISH OIL) 1 GM CAP PO SCH (19:40)
[2019-11-17] MEDS: ATORVASTATIN 10 MG TAB PO SCH (19:40)
[2019-11-18] MEDS: BISMUTH SUBSALICYLATE SUSP PO PRN ×3 (01:50→19:56)
[2019-11-18] MEDS: AMPICILLIN/SULBACTAM SOD 3,000 MG in 0.9 % SODIUM CHLORIDE 100 ML IV SCH ×4 (04:37→22:09)
[2019-11-18] MEDS: MoRPHine SULFATE 2 MG/ML CARP IV PRN (05:22)
[2019-11-18] MEDS: LEVOTHYROXINE SODIUM 88 MCG TABLET PO SCH (05:23)
[2019-11-18 08:00] LABS: Basophils # (auto) 0.06 K/uL (0-0.2); Basophils % (auto) 0.4 %; Eosinophils # (auto) 0.25 K/uL (0-0.5); Eosinophils % (auto) 1.6 %; Hematocrit (blood only) 26.1 % (37-47); Immature Granulocytes % (auto) 3.8 %; Lymphocytes # (auto) 1.54 K/uL (1.2-3.4); Lymphocytes % (auto) 9.8 %; Mean Corpuscular Hemoglobin 28.5 pg (25-34); Mean Corpuscular Hgb Conc 30.7 g/dL (32-36); Mean Corpuscular Volume 92.9 fL (80-100); Mean Platelet Volume 8.5 fL (7.4-10.4); Monocytes # (auto) 0.66 K/uL (0.11-0.59); Monocytes % (auto) 4.2 %; Neutrophils # (auto) 12.55 K/uL (1.4-6.5); Neutrophils % (auto) 80.2 %; Platelet Count 421 K/uL (130-400); RDW Coefficient of Variation 15.9 % (11.5-14.5); RDW Standard Deviation 53.9 fL (36.4-46.3); Red Blood Count 2.81 M/uL (4.2-5.4); White Blood Count 15.66 K/uL (4.8-10.8)
--- NOTE | 2019-11-18 08:06 | Surgery Progress Note ---
Date of Service November 18, 2019 Assessment & Plan (1) Decubital ulcer: POD#2 debridement of sacral and back decub will check wound later when dressing changed/vac applied Subjective wound vac contaminated with stool and removed last night Results & Data Vital Signs (Past 12 Hours) Vital Signs Temp Pulse Pulse Resp BP Pulse Ox 11/18/19 07:24 36.6 C 82 18 142/76 H 100 11/18/19 06:04 64 11/18/19 04:00 36.3 C L 75 18 119/76 99 11/17/19 23:20 36.6 C 91 H 19 126/68 99 PG Care Time/CCT Total # of Minutes Spent Total Time Spent with Patient: Total time spent is greater than 50% in coordination of care (as documented) at patient's floor/unit and/or counseling patient: Coding Level of Care Code 18125 Subseq Hosp Care Lvl 1 Diagnoses Decubital ulcer L89.90
[2019-11-18] MEDS: INSULIN ASPART 100 UNITS/ML 3 ML PEN SC SCH ×4 (08:33→21:33)
[2019-11-18] MEDS: INSULIN HUMAN NPH SC SCH ×2 (08:34→17:27)
[2019-11-18] MEDS: PANTOprazole 40 MG TAB PO SCH (08:35)
[2019-11-18] MEDS: GABAPENTIN 300 MG CAP PO SCH ×3 (08:35→20:39)
[2019-11-18] MEDS: FLUTICASONE/VILANTEROL 100/25MCG 14 PUFFS/INHALER INH SCH (08:35)
[2019-11-18] MEDS: UMECLIDINIUM BROMIDE 62.5MCG/BLISTER 7 PUFFS/INHALER INH SCH (08:36)
[2019-11-18] MEDS: OXYCODONE HCL IR 5 MG TAB (IMMEDIATE RELEASE) PO SCH ×4 (08:41→20:40)
[2019-11-18] MEDS: BUMETANIDE 1 MG TAB PO SCH ×2 (08:42→17:26)
[2019-11-18] MEDS: FLUCONAZOLE 100 MG TAB PO SCH (08:42)
[2019-11-18] MEDS: DOCUSATE SODIUM 100 MG CAP PO SCH ×2 (08:42→20:40)
[2019-11-18] MEDS: NYSTATIN POWDER 15GM BTL EXT SCH ×2 (08:43→22:10)
[2019-11-18] MEDS: ONDANSETRON 4 MG OD TAB PO PRN (11:56)
[2019-11-18] MEDS: ACETAMINOPHEN 325 MG TAB PO PRN ×2 (11:56→15:53)
[2019-11-18] MEDS: MAGNESIUM OXIDE 400 MG TAB PO SCH (11:57)
[2019-11-18] MEDS: FERROUS SULFATE 325 MG TAB PO SCH (11:57)
[2019-11-18] MEDS: ZINC SULFATE 220 MG CAPSULE PO SCH (11:57)
[2019-11-18] MEDS: ONDANSETRON INJ 2 MG/ML 2 ML VIAL IV PRN (15:58)
--- NOTE | 2019-11-18 19:26 | Hospitalist Progress Note ---
Date of Service November 18, 2019 Assessment & Plan (1) Sepsis: POA from buttocks ulcer/cellulitis -sepsis improving overall continue unasyn, now post op -- suspect bump in WBC more related to surgery than true clinical worsening - continue to follow -blood culture x1 noted - since only 1/2 and coag negative staph - almost certainly contaminant. (2) Acute renal failure: Likely secondary to above problem - improved. probably more indicative of HOLLY on CKD - but improved. continue to follow - but now resolved and stable (Cr overall shows good improvement) (3) Abnormal EKG: Noted on admission Repeat WNL No s/sx c/w ACS Trop negative echo reassuring likely just asypmtomatic baseline changes (4) Acute hypotension: now resolved Likely related to infection/ anemia transfused 1 unit of PRBC. (5) Cellulitis: Pressure ulcer of right & left buttock, stage unstageable, left heel, stage unstageable, and left lower lateral leg, stage unstageable. -continue unasyn - see above w WBC - continue current care and follow -now postop -PT/OT eval and treat - although she now says she won't go to a facility; ?can she get air bed at home, more help. (6) Acute UTI: suspect contaminant related to chronic barboza not actual infection (7) Chronic pain syndrome: continue home meds -pain control seems OK -follow (8) Chronic indwelling Barboza catheter: Related to bed bound status Hx of recurrent UTI noted Takes nitrofurantoin for UTI proph Holding during current abx Do not belive this to be the main problem as ulcers appear infected. (9) Hypertension: continue current regimen (bumex now 0.5mg bid) and follow (10) Iron deficiency: continue home meds (11) Obesity hypoventilation syndrome: Noted - continue supportive care - did well perioperatively (12) Anemia: was as low as 6.5 - now improved post transfusion - continue to follow periodically (13) DM II (diabetes mellitus, type II), controlled: Continue home pump A1c 6.5 sugars remain acceptable (14) HLD (hyperlipidemia): continue home meds (15) Hypothyroid: continue home meds (16) DVT prophylaxis: SCDs, pt is bed bound at baseline Admission and Anticipated Discharge Date Admission Date: November 10, 2019 Subjective pain in buttocks reaosnable control. pain in legs but reasonable. worried about pain when she gets rolled for dressings etc. does not want to go to a facility - notes that her help at home can roll her - i noted to her that what was being done prior was obviously not enough offloading. otherwise no new complaints Review of Systems Review of Systems: All systems reviewed & are unremarkable except as noted in HPI & below Physical Exam Physical Exam: gen aao pleasant nad heent nc at mmm breathing unlabored no accessory muscles good effort skin no rashes no pallor or icterus Results & Data Results & Data ([facility]) Vital Signs (Past 12 Hours) Vital Signs Temp Pulse Pulse Resp BP Pulse Ox 11/18/19 19:02 98.1 F 86 18 130/70 100 11/18/19 15:14 73 11/18/19 15:10 98.2 F 80 18 158/62 H 99 11/18/19 11:25 98.2 F 84 18 135/59 L 100 11/18/19 09:02 70 11/18/19 07:24 97.9 F 82 18 142/76 H 100 PG Care Time/CCT Total # of Minutes Spent Total Time Spent with Patient: Total time spent is greater than 50% in coordination of care (as documented) at patient's floor/unit and/or counseling patient: Coding Level of Care Code 37560 Subseq Hosp Care Lvl 3 Diagnoses Sepsis A41.9 Acute renal failure N17.9 Acute renal failure type: unspecified Abnormal EKG R94.31 Acute hypotension I95.9 Cellulitis L03.90 Site of cellulitis: unspecified site Acute UTI N39.0 Chronic pain syndrome G89.4 Chronic indwelling Barboza catheter Z96.0 Hypertension I10 Hypertension type: essential hypertension Iron deficiency E61.1 Obesity hypoventilation syndrome E66.2 Anemia D64.9 DM II (diabetes mellitus, type II), controlled E11.29; Z79.4 Diabetes mellitus fdc insulin use: with fdc use Diabetes mellitus complication status: with kidney complications Diabetes mellitus complication detail: with other kidney complication HLD (hyperlipidemia) E78.5 Hypothyroid E03.9 Hypothyroidism type: unspecified DVT prophylaxis Z29.9 (1) Acute renal failure Acute renal failure type: unspecified Qualified Code(s): N17.9 - Acute kidney failure, unspecified (2) Cellulitis Site of cellulitis: unspecified site Qualified Code(s): L03.90 - Cellulitis, unspecified (3) Hypertension Hypertension type: essential hypertension Qualified Code(s): I10 - Essential (primary) hypertension (4) DM II (diabetes mellitus, type II), controlled Diabetes mellitus fdc insulin use: with fdc use Diabetes mellitus complication status: with kidney complications Diabetes mellitus complication detail: with other kidney complication Qualified Code(s): E11.29 - Type 2 diabetes mellitus with other diabetic kidney complication; Z79.4 - terminal computer operator (current) use of insulin (5) Hypothyroid Hypothyroidism type: unspecified Qualified Code(s): E03.9 - Hypothyroidism, unspecified
[2019-11-18] MEDS: OMEGA-3 (PURIFIED FISH OIL) 1 GM CAP PO SCH (20:39)
[2019-11-18] MEDS: ATORVASTATIN 10 MG TAB PO SCH (20:40)
[2019-11-19] MEDS: MoRPHine SULFATE 2 MG/ML CARP IV PRN (04:18)
[2019-11-19] MEDS: AMPICILLIN/SULBACTAM SOD 3,000 MG in 0.9 % SODIUM CHLORIDE 100 ML IV SCH ×4 (04:19→22:33)
[2019-11-19] MEDS: LEVOTHYROXINE SODIUM 88 MCG TABLET PO SCH (05:49)
[2019-11-19] MEDS: ONDANSETRON INJ 2 MG/ML 2 ML VIAL IV PRN ×2 (06:38→18:09)
--- NOTE | 2019-11-19 07:44 | Hospitalist Progress Note ---
Date of Service November 19, 2019 Assessment & Plan (1) Sepsis: POA from buttocks ulcer/cellulitis -sepsis improving overall continue unasyn, now post op --markedly significant wound which will require extensive support to heal -blood culture x1 noted - since only 1/2 and coag negative staph - almost certainly contaminant. (2) Acute renal failure: Likely secondary to above problem - improved. probably more indicative of HOLLY on CKD 3- but improved. (3) Abnormal EKG: Noted on admission Repeat WNL No s/sx c/w ACS Trop negative echo reassuring likely just asypmtomatic baseline changes (4) Acute hypotension: now resolved as the sepsis episode is improved Likely related to infection/ anemia transfused 1 unit of PRBC. (5) Cellulitis: Pressure ulcer of right & left buttock, stage unstageable, left heel, stage unstageable, and left lower lateral leg, stage unstageable. -continue unasyn - -PT/OT eval and treat - although she now says she won't go to a facility; significant nature of this wound makes it challenging for me to believe it could be cared for at home (6) Acute UTI: suspect contaminant related to chronic barboza not actual infection (7) Chronic pain syndrome: continue home meds -pain control seems OK exception of movement and dressing changes (8) Chronic indwelling Barboza catheter: Related to bed bound status Hx of recurrent UTI noted Takes nitrofurantoin for UTI proph Holding during current abx Do not belive this to be the main problem as ulcers appear infected. (9) Hypertension: continue current regimen (bumex now 0.5mg bid) this will also help with lower extremity swelling (10) Iron deficiency: continue home ferrous sulfate (11) Obesity hypoventilation syndrome: Noted - continue supportive care - did well perioperatively (12) Anemia: was as low as 6.5 - now improved post transfusion - continue to follow periodically (13) DM II (diabetes mellitus, type II), controlled: Continue home pump A1c 6.5 sugars remain acceptable (14) HLD (hyperlipidemia): continue home meds (15) Hypothyroid: continue home meds (16) DVT prophylaxis: SCDs, pt is bed bound at baseline Admission and Anticipated Discharge Date Admission Date: November 10, 2019 Subjective This patient was seen at the time of wound VAC change in the presence of our medical education specialist she is a very extensive large buttocks and upper thigh wound which are significantly deep and opened in would require significant time to heal in addition offloading weight that is concerned with her morbid obesity with a BMI of 52 Review of Systems Review of Systems: Moderate distress and fatigue no headache, blurry or double vision no speech or swallowing issues no chest pain, pressure or palpitations no new complaints of shortness of breath, cough or wheezes no abdominal pain, nausea or vomiting, diarrhea or constipation no dysuria, hematuria or frequency Complains of bilateral leg pain and persistent lower extremity swelling Significant lower back pain buttock pain and upper posterior thigh pain Pain at the area of her wound debridement from her extensive abscess no focal signs of weakness or numbness or altered sensation Significant complaints of anxiety Physical Exam Physical Exam: The patient appeared in moderate distress and morbidly obese Vital signs as documented. Head exam is unremarkable. No scleral icterus Neck is without JVD, thyromegaly, or carotid bruits. Lungs are diminished at the bases with poor effort Cardiac exam, Rhythm is regular.. No murmurs, rubs or gallops. Abdominal exam reveals normal bowel sounds, soft Extremities are 3+ edematous with changes of chronic venous stasis Neurologic exam is alert and oriented, her pain limited persistent examination of her lower extremities Skin is with 1 of the largest open decubitus ulcers are seen in some time I refer you to the wound care nurses note this is extensive wound I would imagine almost impossible for her to be cared for in the home environment Psychologically is with concerns for anxiety Results & Data Results & Data ([facility]) Vital Signs (Past 12 Hours) Vital Signs Temp Pulse Pulse Resp BP Pulse Ox 11/19/19 06:57 90 11/19/19 06:36 98.1 F 88 20 145/76 H 100 11/19/19 02:46 97.9 F 74 18 142/77 H 100 11/19/19 00:25 76 11/18/19 22:34 97.7 F 80 19 143/70 H 100 PG Care Time/CCT Total # of Minutes Spent Total Time Spent with Patient: Total time spent is greater than 50% in coordination of care (as documented) at patient's floor/unit and/or counseling patient: Coding Level of Care Code 74115 Subseq Hosp Care Lvl 3 Diagnoses Sepsis A41.9 Acute renal failure N17.9 Acute renal failure type: unspecified Abnormal EKG R94.31 Acute hypotension I95.9 Cellulitis L03.90 Site of cellulitis: unspecified site Acute UTI N39.0 Chronic pain syndrome G89.4 Chronic indwelling Barboaz catheter Z96.0 Hypertension I10 Hypertension type: essential hypertension Iron deficiency E61.1 Obesity hypoventilation syndrome E66.2 Anemia D64.9 DM II (diabetes mellitus, type II), controlled E11.29; Z79.4 Diabetes mellitus complication detail: with other kidney complication Diabetes mellitus complication status: with kidney complications Diabetes mellitus shelter insulin use: with shelter use HLD (hyperlipidemia) E78.5 Hypothyroid E03.9 Hypothyroidism type: unspecified DVT prophylaxis Z29.9 (1) Acute renal failure Acute renal failure type: unspecified Qualified Code(s): N17.9 - Acute kidney failure, unspecified (2) Cellulitis Site of cellulitis: unspecified site Qualified Code(s): L03.90 - Cellulitis, unspecified (3) Hypothyroid Hypothyroidism type: unspecified Qualified Code(s): E03.9 - Hypothyroidism, unspecified (4) DM II (diabetes mellitus, type II), controlled Diabetes mellitus complication detail: with other kidney complication Diabetes mellitus complication status: with kidney complications 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
[2019-11-19] MEDS: OXYCODONE HCL IR 5 MG TAB (IMMEDIATE RELEASE) PO SCH ×4 (08:32→21:09)
[2019-11-19] MEDS: FLUCONAZOLE 100 MG TAB PO SCH (08:33)
[2019-11-19] MEDS: PANTOprazole 40 MG TAB PO SCH (08:33)
[2019-11-19] MEDS: BUMETANIDE 1 MG TAB PO SCH ×2 (08:34→17:29)
[2019-11-19] MEDS: BISMUTH SUBSALICYLATE SUSP PO PRN ×2 (08:35→15:33)
[2019-11-19] MEDS: FLUTICASONE/VILANTEROL 100/25MCG 14 PUFFS/INHALER INH SCH (08:35)
[2019-11-19] MEDS: NYSTATIN POWDER 15GM BTL EXT SCH ×2 (08:38→21:10)
[2019-11-19] MEDS: INSULIN ASPART 100 UNITS/ML 3 ML PEN SC SCH ×4 (08:39→21:10)
[2019-11-19] MEDS: INSULIN HUMAN NPH SC SCH ×2 (08:42→17:32)
[2019-11-19] MEDS: DOCUSATE SODIUM 100 MG CAP PO SCH ×2 (09:13→21:33)
[2019-11-19] MEDS: GABAPENTIN 300 MG CAP PO SCH ×3 (09:14→21:11)
[2019-11-19] MEDS: UMECLIDINIUM BROMIDE 62.5MCG/BLISTER 7 PUFFS/INHALER INH SCH (09:14)
--- NOTE | 2019-11-19 12:00 | Pharmacy Report ---
Glycemic Control Progress Note - Date of Service November 19, 2019 - Scope Glycemic Pharmacist consulted for glycemic control to write orders per [facility] inpatient glycemic control protocol. - Objective Accuchecks BSG(last 24 hours):: 11/18/19 11/18/19 11/18/19 11:49 17:04 20:18 POC Glucose 164 H 132 H 156 H 11/19/19 07:26 POC Glucose 170 H HbA1c:: Hemoglobin A1c 6.5 % (4.5-5.6) H 11/11/19 05:41 - Recent Pertinent Medications The patient is currently receiving: * Basal insulin: NPH 15 units BIDM * Correctional Insulin: Novolog Correction per scale ACHS Goal Range: Low 120 mg/dL - High 160 mg/dL Correction Factor: 5 mg/dL/unit * Prandial insulin: Per carb ratio of 1 unit per 45 grams CHO consumed (added to evaluate carbohydrate intake) - Outpatient Anti-Diabetic Meds U-500 insulin --> 350 units/day - Assessment & Plan ASSESSMENT: * See progress note from 11/11/2019 for more background info, in short: * Pt receiving SQ basal bolus insulin regimen for hyperglycemia secondary to baseline DM (outpatient regimen on hold),stress/infection (on Unasyn and fluconazole). * Patient is currently receiving an average of 32 units of insulin per day * 30 units of basal insulin * 2 units of prandial/correctional insulin * BSGs ranging 130 - 164 mg/dl over the past 24hrs * Changes needed to insulin regimen: * AM Fasting BSG = 170 mg/dl. This is above goal range for patient based on inpatient targets and co-morbidities. The patient had a low blood sugar on 11/15/2019 in the morning and basal insulin had been pulled back from 65 units/day to 25 units/day. Basal insulin requirements somewhere between 30 and 60 units/day. Scale that is in use currently appears very appropriate (allows for 30-50 units/day) --- will continue. * Post-prandial BSGs are well controlled and primarily controlled via NPH. Will loosen CF significantly so that overcorrection does not occur. * Total daily dose = ? units. Currently changing significantly will monitor. PLAN FOR INPATIENT GLYCEMIC CONTROL: * Continuing NPH 15-25 units SQ BIDM * Changing correction factor to 30 mg/dl/unit * Continuing carb ratio of 1 unit per 45 grams CHO consumed * Continuing goal range of Low 120 mg/dL - High 160 mg/dL RECOMMENDATIONS FOR DISCHARGE: * Continue to follow with outpatient diabetes clinic. Thank you.
[2019-11-19] MEDS: MAGNESIUM OXIDE 400 MG TAB PO SCH (12:14)
[2019-11-19] MEDS: ZINC SULFATE 220 MG CAPSULE PO SCH (12:15)
[2019-11-19] MEDS: FERROUS SULFATE 325 MG TAB PO SCH (12:15)
[2019-11-19] MEDS: ACETAMINOPHEN 325 MG TAB PO PRN (13:39)
[2019-11-19] MEDS: OMEGA-3 (PURIFIED FISH OIL) 1 GM CAP PO SCH (21:11)
[2019-11-19] MEDS: ATORVASTATIN 10 MG TAB PO SCH (22:01)
[2019-11-20] MEDS: BISMUTH SUBSALICYLATE SUSP PO PRN (03:08)
[2019-11-20] MEDS: AMPICILLIN/SULBACTAM SOD 3,000 MG in 0.9 % SODIUM CHLORIDE 100 ML IV SCH ×4 (04:46→22:06)
[2019-11-20] MEDS: LEVOTHYROXINE SODIUM 88 MCG TABLET PO SCH (05:53)
[2019-11-20] MEDS: DOCUSATE SODIUM 100 MG CAP PO SCH ×2 (08:02→20:37)
[2019-11-20] MEDS: PANTOprazole 40 MG TAB PO SCH (08:02)
[2019-11-20] MEDS: OXYCODONE HCL IR 5 MG TAB (IMMEDIATE RELEASE) PO SCH ×4 (08:02→20:37)
[2019-11-20] MEDS: GABAPENTIN 300 MG CAP PO SCH ×3 (08:03→20:38)
[2019-11-20] MEDS: NYSTATIN POWDER 15GM BTL EXT SCH ×2 (08:03→20:38)
[2019-11-20] MEDS: BUMETANIDE 1 MG TAB PO SCH ×2 (08:03→17:05)
[2019-11-20] MEDS: UMECLIDINIUM BROMIDE 62.5MCG/BLISTER 7 PUFFS/INHALER INH SCH (08:03)
[2019-11-20] MEDS: FLUTICASONE/VILANTEROL 100/25MCG 14 PUFFS/INHALER INH SCH (08:05)
[2019-11-20] MEDS: INSULIN ASPART 100 UNITS/ML 3 ML PEN SC SCH ×4 (08:09→20:46)
[2019-11-20] MEDS: INSULIN HUMAN NPH SC SCH ×2 (08:10→17:01)
--- NOTE | 2019-11-20 08:27 | Hospitalist Progress Note ---
Date of Service November 20, 2019 Assessment & Plan (1) Sepsis: POA from buttocks ulcer/cellulitis -sepsis resolved continue unasyn, now post op --markedly significant wound which will require extensive support to heal -blood culture x1 noted - since only 1/2 and coag negative staph - almost certa inly contaminant once wound healing is progressing will look for rehab placement for wound care and pressure management at the site given her obesity with a BMI or 52. (2) Abnormal EKG: Noted on admission->Repeat WNL No s/sx c/w ACS Trop negative echo reassuring (3) Cellulitis: Pressure ulcer of right & left buttock, extensive one of the largest Susannah have seen in my practice, left heel, and left lower lateral leg, both are stage 2-3 -continue unasyn - -PT/OT eval and treat - now agreeable to snf considering temo castillo (4) Chronic pain syndrome: continue home meds -pain control seems OK exception of movement and dressing changes (5) Chronic indwelling Garcia catheter: Related to bed bound status Hx of recurrent UTI noted Takes nitrofurantoin for UTI proph Holding during current abx Do not belive this to be the main problem as ulcers appear infected. (6) Hypertension: continue current regimen (bumex now 0.5mg bid) this will also help with lower extremity swelling (7) Iron deficiency: continue home ferrous sulfate (8) Obesity hypoventilation syndrome: Noted - continue supportive care - (9) Anemia: was as low as 6.5 - now improved post transfusion - this is anemia of chronic disease stable in the 8-9 gm range, continue to follow periodically (10) DM II (diabetes mellitus, type II), controlled: Continue home pump A1c 6.5 sugars remain acceptable (11) HLD (hyperlipidemia): continue home meds (12) Hypothyroid: continue home meds (13) DVT prophylaxis: SCDs, pt is bed bound at baseline I called daughter at her request, no answer and left message Admission and Anticipated Discharge Date Admission Date: November 10, 2019 Subjective this pt is still with painful dressing changes to her wound, she is now agreeable to senior care facility Review of Systems Review of Systems: moderate distress and fatigue no headache, blurry or double vision no speech or swallowing issues no chest pain, pressure or palpitations no shortness of breath, cough or wheezes no abdominal pain, nausea or vomiting, diarrhea or constipation no dysuria, hematuria or frequency c/o bilateral leg pain has chronic le swelling swelling chronic back pain, but no radicular pain no bruising, bleeding or rashes no focal signs of weakness or numbness or altered sensation no complaints or anxiety or depression Physical Exam Physical Exam: The patient appeared obese and in moderate distress Vital signs as documented. Head exam is unremarkable. No scleral icterus Neck is without JVD, thyromegaly, or carotid bruits. Lungs are diminished at bases Cardiac exam, Rhythm is regular.. No murmurs, rubs or gallops. Abdominal exam reveals normal bowel sounds, soft non tender, no masses Extremities are moderately edematous with chronic venous stasis changes Neurologic exam is alert and oriented, no focal loss of strength or sensation Skin is witha substatial buttock wound and changes of chronic venous stasis Psychologically is without concerns for anxiety or depression Results & Data Results & Data ([facility]) Vital Signs (Past 12 Hours) Vital Signs Temp Pulse Pulse Resp BP BP Pulse Ox 11/20/19 07:11 97.9 F 87 18 129/73 90 11/20/19 06:55 74 11/20/19 03:03 97.7 F 91 H 19 165/70 H 99 11/20/19 00:09 76 11/19/19 23:44 98.2 F 102 H 20 154/82 H 98 PG Care Time/CCT Total # of Minutes Spent Total Time Spent with Patient: Total time spent is greater than 50% in coordination of care (as documented) at patient's floor/unit and/or counseling patient: Coding Level of Care Code 38370 Subseq Hosp Care Lvl 3 Diagnoses Sepsis A41.9 Abnormal EKG R94.31 Cellulitis L03.90 Site of cellulitis: unspecified site Chronic pain syndrome G89.4 Chronic indwelling Garcia catheter Z96.0 Hypertension I10 Hypertension type: essential hypertension Iron deficiency E61.1 Obesity hypoventilation syndrome E66.2 Anemia D64.9 DM II (diabetes mellitus, type II), controlled E11.29; Z79.4 Diabetes mellitus complication detail: with other kidney complication Diabetes mellitus complication status: with kidney complications Diabetes mellitus mcc insulin use: with ferry terminal supervisor use HLD (hyperlipidemia) E78.5 Hypothyroid E03.9 Hypothyroidism type: unspecified DVT prophylaxis Z29.9 (1) Cellulitis Site of cellulitis: unspecified site Qualified Code(s): L03.90 - Cellulitis, unspecified (2) Hypothyroid Hypothyroidism type: unspecified Qualified Code(s): E03.9 - Hypothyroidism, unspecified (3) DM II (diabetes mellitus, type II), controlled Diabetes mellitus complication detail: with other kidney complication Diabetes mellitus complication status: with kidney complications Diabetes mellitus ferry terminal supervisor insulin use: with ferry terminal supervisor use Qualified Code(s): E11.29 - Type 2 diabetes mellitus with other diabetic kidney complication; Z79.4 - continuous churn buttermaker (current) use of insulin (4) Hypertension Hypertension type: essential hypertension Qualified Code(s): I10 - Essential (primary) hypertension
--- NOTE | 2019-11-20 08:48 | Surgery Progress Note ---
Date of Service November 20, 2019 Assessment & Plan (1) Decubital ulcer: POD#4 debridement of sacral and back decubiti Patient afebrile Continues on IV Unasyn Wound care changed vac yesterday, planning for changing every //tue will need follow up at wound care center Pt seen and examined with Dr. Sparrow Subjective Patient states she is feeling better. Voices no pain in buttocks/back, just in her knees. Physical Exam Physical Exam: awake/alert Results & Data Vital Signs (Past 12 Hours) Vital Signs Temp Pulse Pulse Resp BP BP Pulse Ox 11/20/19 07:11 36.6 C 87 18 129/73 90 11/20/19 06:55 74 11/20/19 03:03 36.5 C 91 H 19 165/70 H 99 11/20/19 00:09 76 11/19/19 23:44 36.8 C 102 H 20 154/82 H 98 PG Care Time/CCT Total # of Minutes Spent Total Time Spent with Patient: Total time spent is greater than 50% in coordination of care (as documented) at patient's floor/unit and/or counseling patient: Coding Level of Care Code 23985 Subseq Hosp Care Lvl 1 Diagnoses Decubital ulcer L89.90
[2019-11-20 08:57] LABS: Basophils # (auto) 0.04 K/uL (0-0.2); Basophils % (auto) 0.2 %; Eosinophils # (auto) 0.24 K/uL (0-0.5); Eosinophils % (auto) 1.4 %; Hematocrit (blood only) 29.6 % (37-47); Hemoglobin 8.9 g/dL (12.0-16.0); Immature Granulocytes # (auto) 0.66 K/uL (0.00-0.02); Immature Granulocytes % (auto) 3.8 %; Lymphocytes # (auto) 1.46 K/uL (1.2-3.4); Lymphocytes % (auto) 8.4 %; Mean Corpuscular Hemoglobin 28.2 pg (25-34); Mean Corpuscular Hgb Conc 30.1 g/dL (32-36); Mean Corpuscular Volume 93.7 fL (80-100); Mean Platelet Volume 8.2 fL (7.4-10.4); Monocytes # (auto) 0.73 K/uL (0.11-0.59); Monocytes % (auto) 4.2 %; Platelet Count 456 K/uL (130-400); RDW Standard Deviation 55.2 fL (36.4-46.3); Red Blood Count 3.16 M/uL (4.2-5.4); White Blood Count 17.33 K/uL (4.8-10.8)
[2019-11-20 09:27] LABS: Calcium 9.5 mg/dl (8.5-10.1); Creatinine Clr Calc Pharmacy 118.8 ml/min; Est GFR (African American) 98.3; Est GFR (Non-African American) 84.8
[2019-11-20] MEDS: MoRPHine SULFATE 2 MG/ML CARP IV PRN (10:38)
[2019-11-20] MEDS: ONDANSETRON 4 MG OD TAB PO PRN ×2 (12:35→20:48)
[2019-11-20] MEDS: ZINC SULFATE 220 MG CAPSULE PO SCH (12:37)
[2019-11-20] MEDS: MAGNESIUM OXIDE 400 MG TAB PO SCH (12:37)
[2019-11-20] MEDS: FERROUS SULFATE 325 MG TAB PO SCH (12:38)
[2019-11-20] MEDS: ACETAMINOPHEN 325 MG TAB PO PRN (14:01)
[2019-11-20] MEDS: OMEGA-3 (PURIFIED FISH OIL) 1 GM CAP PO SCH (20:38)
[2019-11-20] MEDS: ATORVASTATIN 10 MG TAB PO SCH (20:39)
[2019-11-21] MEDS: MoRPHine SULFATE 2 MG/ML CARP IV PRN ×3 (00:26→11:30)
[2019-11-21] MEDS: AMPICILLIN/SULBACTAM SOD 3,000 MG in 0.9 % SODIUM CHLORIDE 100 ML IV SCH ×4 (04:30→21:41)
[2019-11-21] MEDS: LEVOTHYROXINE SODIUM 88 MCG TABLET PO SCH (05:04)
--- NOTE | 2019-11-21 07:33 | Hospitalist Progress Note ---
Date of Service November 21, 2019 Assessment & Plan (1) Sepsis: POA from buttocks ulcer/cellulitis -sepsis resolved continue unasyn, significant wound which will require extensive support to heal -blood culture x1 noted - since only 1/2 and coag negative staph - almost certainly contaminant once wound healing is progressing will look for rehab placement for wound care and pressure management at the site given her obesity with a BMI or 52. We will consider transition oral antibiotics at time of discharge (2) Cellulitis: Pressure ulcer of right & left buttock, extensive one of the largest Sus[place] have seen in my practice, left heel, and left lower lateral leg, both are stage 2-3 -continue unasyn - -PT/OT eval and treat - now agreeable to snf considering temo castillo (3) Chronic pain syndrome: continue home meds of gabapentin and oxycodone -pain control seems OK exception of movement and dressing changes, may consider scheduled acetaminophen right now is PRN (4) Chronic indwelling Garcia catheter: Related to bed bound status Hx of recurrent UTI noted Takes nitrofurantoin for UTI proph Holding during current abx Do not belive this to be the main problem as ulcers appear infected. (5) Hypertension: continue current regimen (bumex now 0.5mg bid) this will also help with lower extremity swelling (6) Iron deficiency: continue home ferrous sulfate due to some issues with constipation hopefully remedied with oral laxatives (7) Obesity hypoventilation syndrome: Noted - continue supportive care - (8) Anemia: was as low as 6.5 - now improved post transfusion - this is anemia of chronic disease stable in the 8-9 gm range, continue to follow periodically (9) DM II (diabetes mellitus, type II), controlled: Continue home pump A1c 6.5 sugars remain acceptable (10) HLD (hyperlipidemia): continue home meds (11) Hypothyroid: continue home meds (12) DVT prophylaxis: SCDs, pt is bed bound at baseline I called daughter at her request, no answer and left message (13) Decubital ulcer: Status post surgical debridement by Dr. Kay on November 15. Patient had gotten stool under her VAC and so the VAC was removed and gauze placed instead. At this time we will reapply wound VAC. Wound VAC will be changed Tuesday and Tuesday. We will use silver foam when available. Continue offloading through [id number] mattress. (14) Deep tissue injury: Patient with deep tissue injuries of bilateral legs. Wounds of the legs to be dressed with Aquacel Ag and OPTi foam every other day as needed. Her left heel will be painted with Betadine daily. (15) Abnormal EKG: Noted on admission->Repeat WNL No s/sx c/w ACS Trop negative echo reassuring Admission and Anticipated Discharge Date Admission Date: November 10, 2019 Subjective Patient has no new complaints or problems she still has discomfort with movement and needs significant assistance to care for her wound and her general body due to her morbid obesity.. She is now open to fdc facilities Review of Systems Review of Systems: Mild to moderate distress and significant fatigue even with minor exertion no headache, blurry or double vision no speech or swallowing issues no chest pain, pressure or palpitations Baseline shortness of breath at rest from her morbid obesity and likely obesity hypoventilation syndrome, cough or wheezes no abdominal pain, nausea or vomiting, diarrhea or constipation no dysuria, hematuria or frequency Discomfort to her left gluteus and upper thigh on the right no back pain, CVA tenderness or radicular pain no focal signs of weakness or numbness or altered sensation no complaints or anxiety or depression Physical Exam Physical Exam: The patient appeared morbidly obese and chronically ill Vital signs as documented. Head exam is normocephalic atraumatic no scleral icterus Neck is without JVD, thyromegaly, or carotid bruits. Lungs are clear to auscultation, but very diminished at the bases Cardiac exam, Rhythm is regular.. No murmurs, rubs or gallops. Abdominal exam reveals normal bowel sounds, soft non tender, no masses Extremities are mild to moderately edematous and both lower extremity with changes of chronic venous stasis Neurologic exam is alert and oriented, no focal loss of strength or sensation Skin is with large unstageable decubitus ulcer to her right buttocks and upper thigh Psychologically is without concerns for anxiety or depression Results & Data Results & Data ([facility]) Vital Signs (Past 12 Hours) Vital Signs Temp Pulse Pulse Resp BP Pulse Ox 11/21/19 07:00 98.1 F 81 20 136/76 100 11/21/19 03:47 97.5 F L 78 20 146/70 H 90 11/20/19 23:37 97.9 F 87 20 132/76 90 11/20/19 23:26 78 PG Care Time/CCT Total # of Minutes Spent Total Time Spent with Patient: Total time spent is greater than 50% in coordination of care (as documented) at patient's floor/unit and/or counseling patient: Coding Level of Care Code 47670 Subseq Hosp Care Lvl 3 Diagnoses Sepsis A41.9 Cellulitis L03.90 Site of cellulitis: unspecified site Chronic pain syndrome G89.4 Chronic indwelling Garcia catheter Z96.0 Hypertension I10 Hypertension type: essential hypertension Iron deficiency E61.1 Obesity hypoventilation syndrome E66.2 Anemia D64.9 DM II (diabetes mellitus, type II), controlled E11.29; Z79.4 Diabetes mellitus complication detail: with other kidney complication Diabetes mellitus complication status: with kidney complications Diabetes mellitus termite renewal inspector insulin use: with usp use HLD (hyperlipidemia) E78.5 Hypothyroid E03.9 Hypothyroidism type: unspecified DVT prophylaxis Z29.9 Decubital ulcer L89.90 Deep tissue injury T14.8XXA Abnormal EKG R94.31 (1) Cellulitis Site of cellulitis: unspecified site Qualified Code(s): L03.90 - Cellulitis, unspecified (2) Hypothyroid Hypothyroidism type: unspecified Qualified Code(s): E03.9 - Hypothyroidism, unspecified (3) DM II (diabetes mellitus, type II), controlled Diabetes mellitus complication detail: with other kidney complication Diabetes mellitus complication status: with kidney complications Diabetes mellitus termite renewal inspector insulin use: with usp use Qualified Code(s): E11.29 - Type 2 diabetes mellitus with other diabetic kidney complication; Z79.4 - jail (current) use of insulin (4) Hypertension Hypertension type: essential hypertension Qualified Code(s): I10 - Essential (primary) hypertension
[2019-11-21] MEDS: INSULIN HUMAN NPH SC SCH ×2 (08:25→17:13)
[2019-11-21] MEDS: INSULIN ASPART 100 UNITS/ML 3 ML PEN SC SCH ×4 (08:26→20:48)
[2019-11-21] MEDS: OXYCODONE HCL IR 5 MG TAB (IMMEDIATE RELEASE) PO SCH ×4 (08:30→20:46)
[2019-11-21] MEDS: FLUTICASONE/VILANTEROL 100/25MCG 14 PUFFS/INHALER INH SCH (08:31)
[2019-11-21] MEDS: DOCUSATE SODIUM 100 MG CAP PO SCH (08:31)
[2019-11-21] MEDS: PANTOprazole 40 MG TAB PO SCH (08:32)
[2019-11-21] MEDS: BUMETANIDE 1 MG TAB PO SCH ×2 (08:32→17:10)
[2019-11-21] MEDS: GABAPENTIN 300 MG CAP PO SCH ×3 (08:33→20:47)
[2019-11-21] MEDS: NYSTATIN POWDER 15GM BTL EXT SCH ×2 (08:34→20:46)
[2019-11-21] MEDS: UMECLIDINIUM BROMIDE 62.5MCG/BLISTER 7 PUFFS/INHALER INH SCH (08:34)
[2019-11-21] MEDS: CHOLECALCIFEROL 1,000 UNITS 25 MCG TAB PO SCH (08:34)
[2019-11-21] MEDS: ONDANSETRON 4 MG OD TAB PO PRN (09:07)
[2019-11-21] MEDS: ONDANSETRON INJ 2 MG/ML 2 ML VIAL IV PRN ×2 (09:12→16:00)
--- NOTE | 2019-11-21 09:36 | Wound Progress Note ---
Date of Service November 21, 2019 Assessment & Plan (1) Decubital ulcer: Status post surgical debridement by Dr. Kay on November 15. Patient had gotten stool under her VAC and so the VAC was removed and gauze placed instead. At this time we will reapply wound VAC. Wound VAC will be changed Tuesday and Tuesday. We will use silver foam when available. Continue offloading through [id number] mattress. Thank you for limited participate in the care of this patient. Please not hesitate to call with any questions. (2) Deep tissue injury: Subjective Patient seen at bedside in follow-up of deep tissue wound. Patient is status post surgical debridement by Dr. Kay on November 15 of her decubitus ulcer. Patient is complaining of her chronic pain. She has no new complaints. Review of Systems Review of Systems: All systems reviewed & are unremarkable except as noted in HPI & below Physical Exam Skin: Measuring as recorded in nursing documentation. Wounds are covered with fibrin and slough. Oozing has stopped. Neurologic: awake; not confused Psychiatric: A+Ox3, euthymic affect Results & Data Vital Signs (Past 12 Hours) Vital Signs Temp Pulse Pulse Resp BP Pulse Ox 11/21/19 07:00 36.7 C 81 20 136/76 100 11/21/19 03:47 36.4 C L 78 20 146/70 H 90 11/20/19 23:37 36.6 C 87 20 132/76 90 11/20/19 23:26 78 PG Care Time/CCT Total # of Minutes Spent Total Time Spent with Patient: Total time spent is greater than 50% in coordination of care (as documented) at patient's floor/unit and/or counseling patient: Coding Level of Care Code 39591 Subseq Hosp Care Lvl 2 Diagnoses Decubital ulcer L89.90 Deep tissue injury T14.8XXA
--- NOTE | 2019-11-21 10:28 | Pharmacy Report ---
Pharmacy Glycemic Short Note 2 - Date of Service November 21, 2019 - Glycemic Short BSG Results (Last 24 hours): 11/20/19 11/20/19 11/20/19 11:43 16:23 20:01 POC Glucose 170 H 143 H 160 H 11/21/19 07:43 POC Glucose 148 H OUTPATIENT ANTIDIABETIC REGIMEN: * U500 insulin pump * A1c = 6.5% on 11/11/2019 ASSESSMENT: 11/20: * Patient received a total fo 44 units of insulin yesterday, 40 units basal + 4 units bolus * Fasting BSG this AM was 148 mg/dL * 24 hours BSGs have ranged 143-170 mg/dL - well controlled * No changes to regimen at this time PLAN FOR INPATIENT GLYCEMIC CONTROL: * Basal insulin: * NPH 20 unit SQ BIDM * Bolus insulin * NovoLog per scale ACHS or Q6hrs while NPO * Goal Range: Low 120 mg/dL - High 160 mg/dL * Correction Factor: 25 mg/dL/unit * Carb ratio: 1 unit / 45 gm CHO PLAN FOR DISCHARGE: * Continue U-500 insulin pump upon patient discharge.
[2019-11-21] MEDS: ZINC SULFATE 220 MG CAPSULE PO SCH (12:33)
[2019-11-21] MEDS: MAGNESIUM OXIDE 400 MG TAB PO SCH (12:34)
[2019-11-21] MEDS: FERROUS SULFATE 325 MG TAB PO SCH (12:34)
[2019-11-21] MEDS: ACETAMINOPHEN 325 MG TAB PO PRN (18:37)
[2019-11-21] MEDS: DOCUSATE SODIUM/SENNA 50/8.6MG TAB PO SCH (20:46)
[2019-11-21] MEDS: ATORVASTATIN 10 MG TAB PO SCH (20:47)
[2019-11-21] MEDS: OMEGA-3 (PURIFIED FISH OIL) 1 GM CAP PO SCH (20:47)
[2019-11-22] MEDS: MAGNESIUM HYDROXIDE SUSP 30 ML UDC PO PRN (03:20)
[2019-11-22] MEDS: ACETAMINOPHEN 325 MG TAB PO PRN ×2 (03:20→15:54)
[2019-11-22] MEDS: AMPICILLIN/SULBACTAM SOD 3,000 MG in 0.9 % SODIUM CHLORIDE 100 ML IV SCH ×4 (04:48→22:20)
[2019-11-22] MEDS: LEVOTHYROXINE SODIUM 88 MCG TABLET PO SCH (05:47)
[2019-11-22] MEDS: OXYCODONE HCL IR 5 MG TAB (IMMEDIATE RELEASE) PO SCH ×4 (08:39→21:06)
[2019-11-22] MEDS: BUMETANIDE 1 MG TAB PO SCH ×2 (08:40→16:36)
[2019-11-22] MEDS: PANTOprazole 40 MG TAB PO SCH (08:40)
[2019-11-22] MEDS: GABAPENTIN 300 MG CAP PO SCH ×3 (08:41→21:07)
[2019-11-22] MEDS: DOCUSATE SODIUM/SENNA 50/8.6MG TAB PO SCH ×2 (08:41→21:08)
[2019-11-22] MEDS: FLUTICASONE/VILANTEROL 100/25MCG 14 PUFFS/INHALER INH SCH (08:42)
[2019-11-22] MEDS: UMECLIDINIUM BROMIDE 62.5MCG/BLISTER 7 PUFFS/INHALER INH SCH (08:43)
[2019-11-22] MEDS: NYSTATIN POWDER 15GM BTL EXT SCH ×2 (08:43→21:07)
[2019-11-22] MEDS: INSULIN HUMAN NPH SC SCH ×3 (08:45→17:18)
[2019-11-22] MEDS: INSULIN ASPART 100 UNITS/ML 3 ML PEN SC SCH ×4 (08:48→21:08)
--- NOTE | 2019-11-22 09:45 | Pharmacy Report ---
Pharmacy Glycemic Short Note 2 - Date of Service November 22, 2019 - Glycemic Short BSG Results (Last 24 hours): OUTPATIENT ANTIDIABETIC REGIMEN: * U500 insulin pump * A1c = 6.5% on 11/11/2019 ASSESSMENT: 11/21: * Patient received a total fo 56 units of insulin yesterday, 45 units basal + 11 units bolus * Fasting BSG this AM was 156 mg/dL. Acceptable. Will slightly increase basal regimen today to 50 units to get fasting BSG in goal range. * 24 hours BSGs have ranged 156-259 mg/dL * Post prandial BSGs have been increasing. Therefore, will tightened goal range and CR to give more prandial insulin PLAN FOR INPATIENT GLYCEMIC CONTROL: * Basal insulin - increased * NPH 25 unit SQ BIDM * Bolus insulin - tightened * NovoLog per scale ACHS or Q6hrs while NPO * Goal Range: Low 110 mg/dL - High 140 mg/dL * Correction Factor: 25 mg/dL/unit * Carb ratio: 1 unit / 30 gm CHO PLAN FOR DISCHARGE: * Continue U-500 insulin pump upon patient discharge.
[2019-11-22] MEDS: ONDANSETRON INJ 2 MG/ML 2 ML VIAL IV PRN (10:42)
[2019-11-22] MEDS: MAGNESIUM OXIDE 400 MG TAB PO SCH (12:59)
[2019-11-22] MEDS: FERROUS SULFATE 325 MG TAB PO SCH (13:00)
[2019-11-22] MEDS: ZINC SULFATE 220 MG CAPSULE PO SCH (13:01)
[2019-11-22] MEDS: ONDANSETRON 4 MG OD TAB PO PRN (16:37)
[2019-11-22] MEDS ORDERED: POLYETHYLENE (MIRALAX) 17 GM PACK PO PRN (17:30)
--- NOTE | 2019-11-22 17:36 | Hospitalist Progress Note ---
Date of Service November 22, 2019 Assessment & Plan (1) Sepsis: POA from buttocks ulcer/cellulitis -sepsis resolved continue unasyn, significant wound which will require extensive support to heal -blood culture x1 noted - since only 1/2 and coag negative staph - almost certainly contaminant once wound healing is progressing will look for rehab placement for wound care and pressure management at the site given her obesity with a BMI or 52. We will consider transition oral antibiotics at time of discharge (2) Cellulitis: Pressure ulcer of right & left buttock, extensive one of the largest [place] have seen in my practice, left heel, and left lower lateral leg, both are stage 2-3 -continue unasyn -continue wound VAC and both nursing and physician and certified health education specialist following -PT/OT eval and treat - now agreeable to snf considering temo castillo (3) Chronic pain syndrome: continue home meds of gabapentin and oxycodone -pain control seems acceptable (4) Chronic indwelling Garcia catheter: Related to bed bound status Hx of recurrent UTI noted Takes nitrofurantoin for UTI proph Holding during current abx Do not belive this to be the main problem as ulcers appear infected. (5) Hypertension: continue current regimen (bumex now 0.5mg bid) this will also help with lower extremity swelling (6) Iron deficiency: continue home ferrous sulfate due to some issues with constipation hopefully remedied with oral laxatives (7) Obesity hypoventilation syndrome: Noted - continue supportive care - (8) Anemia: was as low as 6.5 - now improved post transfusion - this is anemia of chronic disease stable in the 8-9 gm range, continue to follow periodically (9) DM II (diabetes mellitus, type II), controlled: Continue home pump A1c 6.5 sugars remain acceptable (10) HLD (hyperlipidemia): continue home meds (11) Hypothyroid: continue home meds (12) DVT prophylaxis: SCDs, pt is bed bound at baseline Spoke to patient's daughter on 11/20 updated her all questions were answered (13) Decubital ulcer: Status post surgical debridement by Dr. Kay on November 15. Patient had gotten stool under her VAC and so the VAC was removed and gauze placed instead. At this time we will reapply wound VAC. Wound VAC will be changed Tuesday and Tuesday. Continue offloading through [id number] mattress. (14) Deep tissue injury: Patient with deep tissue injuries of bilateral legs. Wounds of the legs to be dressed with Aquacel Ag and OPTi foam every other day as needed. Her left heel will be painted with Betadine daily. (15) Abnormal EKG: Noted on admission->Repeat WNL No s/sx c/w ACS Trop negative echo reassuring Admission and Anticipated Discharge Date Admission Date: November 10, 2019 Subjective Patient is fatigued today her buttocks and leg pain have improved persist. I personally spoke to wound care nursing and there was some issue last weekend with her wound VAC and created some dry eschar in her wound. We will waiting to see how the wound progresses this week with appropriate wound VAC placement and possible debridement on 11/22 before making a determination on when she may transition to [facility] care. This patient's issues really revolve around her morbid obesity functional quadriplegia not being able to get out of bed under her own power or change positions creating pressure on the wound. The wound is extensive. This also was an issue as the patient soiled the bed was able to move in the wound VAC became dislodged and been penetrated with stool over the last weekend. Review of Systems Review of Systems: Moderate distress and fatigue no headache, blurry or double vision no speech or swallowing issues no chest pain, pressure or palpitations Patient has baseline shortness of breath due to obesity hypoventilation syndrome and the weight of her chest wall. Even modest movement in the bed causes her to be dyspneic no abdominal pain, nausea or vomiting, persistent complaints of constipation no dysuria, hematuria or frequency Buttocks and posterior right leg pain no back pain, CVA tenderness or radicular pain Significant pain at her wound ordered skin defect from her subcutaneous abscesses no focal signs of weakness or numbness or altered sensation Patient has both anxiety and depression complaints Physical Exam Physical Exam: The patient appeared morbidly obese in mild distress Vital signs as documented. Head exam is normocephalic atraumatic no scleral icterus Neck is without JVD, thyromegaly, or carotid bruits. Lungs are diminished at the bases with poor effort Cardiac exam, Rhythm is regular.. No murmurs, rubs or gallops. Abdominal exam reveals normal bowel sounds, soft non tender, no masses Extremities are edematous with changes of chronic venous stasis Neurologic exam is alert and oriented, no focal loss of strength or sensation Skin is with large defect from surgical I&D of decubitus and abscess present on admission of her right buttock and upper right thigh Psychologically is with concerns for anxiety & depression Results & Data Results & Data ([facility]) Vital Signs (Past 12 Hours) Vital Signs Temp Pulse Pulse Pulse Resp BP Pulse Ox 11/22/19 17:11 76 11/22/19 15:45 98.1 F 71 18 130/56 L 90 11/22/19 12:00 97.7 F 71 20 164/63 H 100 11/22/19 07:00 97.7 F 79 20 128/62 100 PG Care Time/CCT Total # of Minutes Spent Total Time Spent with Patient: Total time spent is greater than 50% in coordination of care (as documented) at patient's floor/unit and/or counseling patient: Coding Level of Care Code 96701 Subseq Hosp Care Lvl 2 Diagnoses Sepsis A41.9 Cellulitis L03.90 Site of cellulitis: unspecified site Chronic pain syndrome G89.4 Chronic indwelling Garcia catheter Z96.0 Hypertension I10 Hypertension type: essential hypertension Iron deficiency E61.1 Obesity hypoventilation syndrome E66.2 Anemia D64.9 DM II (diabetes mellitus, type II), controlled E11.29; Z79.4 Diabetes mellitus custodial insulin use: with terminal superintendent use Diabetes mellitus complication status: with kidney complications Diabetes mellitus complication detail: with other kidney complication HLD (hyperlipidemia) E78.5 Hypothyroid E03.9 Hypothyroidism type: unspecified DVT prophylaxis Z29.9 Decubital ulcer L89.90 Deep tissue injury T14.8XXA Abnormal EKG R94.31 (1) Cellulitis Site of cellulitis: unspecified site Qualified Code(s): L03.90 - Cellulitis, unspecified (2) Hypertension Hypertension type: essential hypertension Qualified Code(s): I10 - Essential (primary) hypertension (3) DM II (diabetes mellitus, type II), controlled Diabetes mellitus custodial insulin use: with custodial use Diabetes mellitus complication status: with kidney complications Diabetes mellitus complication detail: with other kidney complication Qualified Code(s): E11.29 - Type 2 diabetes mellitus with other diabetic kidney complication; Z79.4 - termite control representative (current) use of insulin (4) Hypothyroid Hypothyroidism type: unspecified Qualified Code(s): E03.9 - Hypothyroidism, unspecified
[2019-11-22] MEDS: OMEGA-3 (PURIFIED FISH OIL) 1 GM CAP PO SCH (21:07)
[2019-11-22] MEDS: ATORVASTATIN 10 MG TAB PO SCH (21:07)
[2019-11-23] MEDS: AMPICILLIN/SULBACTAM SOD 3,000 MG in 0.9 % SODIUM CHLORIDE 100 ML IV SCH ×2 (04:55→11:33)
[2019-11-23] MEDS: LEVOTHYROXINE SODIUM 88 MCG TABLET PO SCH (05:38)
[2019-11-23] MEDS: OXYCODONE HCL IR 5 MG TAB (IMMEDIATE RELEASE) PO SCH ×4 (08:46→20:41)
[2019-11-23] MEDS: UMECLIDINIUM BROMIDE 62.5MCG/BLISTER 7 PUFFS/INHALER INH SCH (08:47)
[2019-11-23] MEDS: DOCUSATE SODIUM/SENNA 50/8.6MG TAB PO SCH ×2 (08:47→20:42)
[2019-11-23] MEDS: FLUTICASONE/VILANTEROL 100/25MCG 14 PUFFS/INHALER INH SCH (08:48)
[2019-11-23] MEDS: NYSTATIN POWDER 15GM BTL EXT SCH ×2 (08:49→20:39)
[2019-11-23] MEDS: PANTOprazole 40 MG TAB PO SCH (08:49)
[2019-11-23] MEDS: INSULIN HUMAN NPH SC SCH ×3 (08:50→17:26)
[2019-11-23] MEDS: GABAPENTIN 300 MG CAP PO SCH ×3 (08:51→20:40)
[2019-11-23] MEDS: BUMETANIDE 1 MG TAB PO SCH ×2 (08:51→17:25)
[2019-11-23] MEDS: INSULIN ASPART 100 UNITS/ML 3 ML PEN SC SCH ×4 (08:52→20:48)
--- NOTE | 2019-11-23 10:03 | Pharmacy Report ---
Pharmacy Glycemic Short Note 2 - Date of Service November 23, 2019 - Glycemic Short BSG Results (Last 24 hours): OUTPATIENT ANTIDIABETIC REGIMEN: * U500 insulin pump * A1c = 6.5% on 11/11/2019 ASSESSMENT: 11/22: * Patient received a total fo 58 units of insulin yesterday, 50 units basal + 8 units bolus * Fasting BSG this AM was 202 mg/dL. This is quite elevated from previous fastings. Will increase NPH by 20% today. * 24 hours BSGs are [phone]. Slight increase in post prandial levels so will tighten CF today. * Patient may be discharged to SNF sometime next week per provider so will not transition back to home U-500 pump until closer to that date. Depending on SNF and patient preference, could be discharged on basal-bolus regimen. PLAN FOR INPATIENT GLYCEMIC CONTROL: * Basal insulin - increased * NPH 30 unit SQ BIDM * Bolus insulin - tightened * NovoLog per scale ACHS or Q6hrs while NPO * Goal Range: Low 110 mg/dL - High 140 mg/dL * Correction Factor: 15 mg/dL/unit * Carb ratio: 1 unit / 30 gm CHO PLAN FOR DISCHARGE: * Continue U-500 insulin pump upon patient discharge. If SNF and patient prefer, could discharge on basal-bolus just while at SNF. Then transition back to U- 500 pump upon discharge from SNF.
[2019-11-23] MEDS: ONDANSETRON INJ 2 MG/ML 2 ML VIAL IV PRN ×2 (11:33→17:19)
[2019-11-23] MEDS: ZINC SULFATE 220 MG CAPSULE PO SCH (11:39)
[2019-11-23] MEDS: MAGNESIUM OXIDE 400 MG TAB PO SCH (11:39)
[2019-11-23] MEDS: FERROUS SULFATE 325 MG TAB PO SCH (11:39)
[2019-11-23] MEDS: ACETAMINOPHEN 325 MG TAB PO PRN (14:22)
--- NOTE | 2019-11-23 14:25 | Wound Progress Note ---
Date of Service November 23, 2019 Assessment & Plan (1) Decubital ulcer: Post op #[address] Kay on November 15. Wound VAC was removed. There was significant oozing. Due to the increased oozing will hold the wound VAC for now. Wound will be dressed with Adaptic, Aquacel Ag and then a Tegaderm to help prevent the wound from drying out. Will reevaluate Tuesday for wound VAC replacement. Continue offloading through [id number] mattress. Thank you for allowing me to participate in the care of this patient. Please do not hesitate to call with any questions. (2) Deep tissue injury: Continue to dress leg wounds with Aquacel and OPTi foam. [place] right heel with Betadine. Subjective Patient seen at bedside. She still complaining of chronic pain. There is no new complaints. Review of Systems Review of Systems: All systems reviewed & are unremarkable except as noted in HPI & below Physical Exam Skin: Sacral wounds measuring as recorded in urgent documentation. When wound VAC was removed there was significant oozing. Wounds are covered with fibrin slough. There is large amount of drainage and no foul odors. Neurologic: awake; not confused Psychiatric: A+Ox3, euthymic affect Results & Data Vital Signs (Past 12 Hours) Vital Signs Temp Pulse Resp BP BP Pulse Ox 11/23/19 11:08 37.0 C 76 18 159/72 H 100 11/23/19 07:19 36.7 C 79 18 142/71 H 98 11/23/19 03:23 36.5 C 79 18 135/72 98 PG Care Time/CCT Total # of Minutes Spent Total Time Spent with Patient: Total time spent is greater than 50% in coordination of care (as documented) at patient's floor/unit and/or counseling patient: Coding Level of Care Code 93229 Subseq Hosp Care Lvl 2 Diagnoses Decubital ulcer L89.90 Deep tissue injury T14.8XXA
[2019-11-23] MEDS: BISMUTH SUBSALICYLATE SUSP PO PRN ×2 (16:07→20:37)
--- NOTE | 2019-11-23 16:24 | Hospitalist Progress Note ---
Date of Service November 23, 2019 Assessment & Plan (1) Decubital ulcer: Surgical debridement by Dr. Kay on November 15. Wound VAC was removed. There was significant oozing. Due to the increased oozing will hold the wound VAC for now. Wound will be dressed with Adaptic, Aquacel Ag and then a Tegaderm to help prevent the wound from drying out. Will reevaluate Tuesday for wound VAC replacement. Continue offloading through [id number] mattress. (2) Deep tissue injury: Continue to dress leg wounds with Aquacel and OPTi foam. [place] right heel with Betadine. Admission and Anticipated Discharge Date Admission Date: November 10, 2019 Subjective Patient is very little change in her overall general condition however wound care believes her wound is significantly draining and is macerated. Wound care is determined the need to leave off her wound VAC the next few days at the try to have the wound dry out some more. The initial dressing is such that it is a temporary dressing at this time with reassessment required for further management of her wound. Overall the patient otherwise has no new complaints or problems Review of Systems Review of Systems: Mild distress and fatigue no headache, blurry or double vision no speech or swallowing issues no chest pain, pressure or palpitations no shortness of breath, cough or wheezes no abdominal pain, nausea or vomiting, still complains of constipation no dysuria, hematuria or frequency no focal joint pain or swelling no back pain, CVA tenderness or radicular pain no bruising, bleeding or rashes no focal signs of weakness or numbness or altered sensation no complaints or anxiety or depression Physical Exam Physical Exam: The patient appeared well Vital signs as documented. Lungs are clear to auscultation and appear unlabored Cardiac exam, Rhythm is regular.. No murmurs, rubs or gallops. Abdominal exam reveals normal bowel sounds, soft non tender, no masses Extremities are moderately edematous and both pedal pulses are normal. Neurologic exam is alert and oriented, Psychologically is with depression over her decline in health Results & Data Results & Data ([facility]) Vital Signs (Past 12 Hours) Vital Signs Temp Pulse Resp BP BP Pulse Ox 11/23/19 15:24 98.2 F 89 18 130/74 99 11/23/19 11:08 98.6 F 76 18 159/72 H 100 11/23/19 07:19 98.1 F 79 18 142/71 H 98 PG Care Time/CCT Total # of Minutes Spent Total Time Spent with Patient: Total time spent is greater than 50% in coordination of care (as documented) at patient's floor/unit and/or counseling patient: Coding Diagnoses Decubital ulcer L89.90 Deep tissue injury T14.8XXA
--- NOTE | 2019-11-23 16:37 | Hospitalist Progress Note ---
Date of Service November 23, 2019 Assessment & Plan (1) Sepsis: POA from buttocks ulcer/cellulitis -sepsis resolved continue unasyn, significant wound which will require extensive support to heal -blood culture x1 noted - since only 1/2 and coag negative staph - almost certainly contaminant once wound healing is progressing will look for rehab placement for wound care and pressure management at the site given her obesity with a BMI or 52. We will consider transition oral antibiotics at time of discharge (2) Cellulitis: Pressure ulcer of right & left buttock, extensive one of the largest Susannah have seen in my practice, left heel, and left lower lateral leg, both are stage 2-3 -continue unasyn -continue wound VAC and both nursing and physician and pacs specialist following -PT/OT eval and treat - now agreeable to snf considering temo castillo (3) Chronic pain syndrome: continue home meds of gabapentin and oxycodone -pain control seems acceptable (4) Chronic indwelling Garcia catheter: Related to bed bound status Hx of recurrent UTI noted Takes nitrofurantoin for UTI proph Holding during current abx (5) Hypertension: continue current regimen (bumex now 0.5mg bid) this will also help with lower extremity swelling (6) Iron deficiency: continue home ferrous sulfate due to some issues with constipation hopefully remedied with oral (7) Obesity hypoventilation syndrome: (8) Anemia: was as low as 6.5 - now improved post transfusion - this is anemia of chronic disease stable in the 8-9 gm range, continue to follow periodically (9) DM II (diabetes mellitus, type II), controlled: Continue home pump A1c 6.5 sugars remain acceptable (10) Decubital ulcer: Status post surgical debridement by Dr. Kay on November 15. Patient had gotten stool under her VAC and so the VAC was removed and gauze placed instead. At this time we will reapply wound VAC. Wound VAC will be changed Tuesday and Tuesday. Continue offloading through [id number] mattress. (11) Deep tissue injury: Patient with deep tissue injuries of bilateral legs. Wounds of the legs to be dressed with Aquacel Ag and OPTi foam every other day as needed. Her left heel will be painted with Betadine daily. Admission and Anticipated Discharge Date Admission Date: November 10, 2019 Results & Data Results & Data ([facility]) Vital Signs (Past 12 Hours) Vital Signs Temp Pulse Resp BP BP Pulse Ox 11/23/19 15:24 98.2 F 89 18 130/74 99 11/23/19 11:08 98.6 F 76 18 159/72 H 100 11/23/19 07:19 98.1 F 79 18 142/71 H 98 PG Care Time/CCT Total # of Minutes Spent Total Time Spent with Patient: Total time spent is greater than 50% in coordination of care (as documented) at patient's floor/unit and/or counseling patient: Coding Level of Care Code 05599 Subseq Hosp Care Lvl 2 Diagnoses Sepsis A41.9 Cellulitis L03.90 Site of cellulitis: unspecified site Chronic pain syndrome G89.4 Chronic indwelling Garcia catheter Z96.0 Hypertension I10 Hypertension type: essential hypertension Iron deficiency E61.1 Obesity hypoventilation syndrome E66.2 Anemia D64.9 DM II (diabetes mellitus, type II), controlled E11.29; Z79.4 Diabetes mellitus [facility] insulin use: with long term care social worker use Diabetes mellitus complication status: with kidney complications Diabetes mellitus complication detail: with other kidney complication Decubital ulcer L89.90 Deep tissue injury T14.8XXA (1) Cellulitis Site of cellulitis: unspecified site Qualified Code(s): L03.90 - Cellulitis, unspecified (2) Hypertension Hypertension type: essential hypertension Qualified Code(s): I10 - Essential (primary) hypertension (3) DM II (diabetes mellitus, type II), controlled Diabetes mellitus long term care social worker insulin use: with [facility] use Diabetes mellitus complication status: with kidney complications Diabetes mellitus complication detail: with other kidney complication Qualified Code(s): E11.29 - Type 2 diabetes mellitus with other diabetic kidney complication; Z79.4 - ferry terminal agent (current) use of insulin
[2019-11-23] MEDS: ATORVASTATIN 10 MG TAB PO SCH (20:39)
[2019-11-23] MEDS: OMEGA-3 (PURIFIED FISH OIL) 1 GM CAP PO SCH (20:40)
[2019-11-24] MEDS: LEVOTHYROXINE SODIUM 88 MCG TABLET PO SCH (06:12)
--- NOTE | 2019-11-24 07:48 | Surgery Progress Note ---
Date of Service November 24, 2019 Assessment & Plan (1) Decubital ulcer: continue dressings offloading bed frequent turns will follow Subjective Pain controlled Review of Systems Constitutional: no fever and no chills Respiratory: no dyspnea Cardiovascular: no chest pain Gastrointestinal: no abdominal pain Physical Exam Respiratory: normal respiratory effort, lungs clear to auscultation Cardiovascular: RRR, no murmur, no edema Gastrointestinal (Abdomen): Inspection/Auscultation: abdomen normal to inspection and normal bowel sounds Percussion/Palpation: abdomen soft Skin: sacral decubitus evaluated; good granulation with significant drainage Results & Data Vital Signs (Past 12 Hours) Vital Signs Temp Pulse Pulse Resp BP Pulse Ox 11/24/19 07:00 36.6 C 96 H 20 160/72 H 99 11/24/19 04:00 36.5 C 80 20 169/70 H 98 11/23/19 23:16 67 11/23/19 22:47 36.7 C 79 17 139/59 L 99 11/23/19 19:55 37.2 C 74 20 138/72 100
[2019-11-24] MEDS: DOCUSATE SODIUM/SENNA 50/8.6MG TAB PO SCH ×2 (08:25→20:52)
[2019-11-24] MEDS: OXYCODONE HCL IR 5 MG TAB (IMMEDIATE RELEASE) PO SCH ×4 (08:25→23:20)
[2019-11-24] MEDS: NYSTATIN POWDER 15GM BTL EXT SCH ×2 (08:26→20:49)
[2019-11-24] MEDS: INSULIN HUMAN NPH SC SCH ×2 (08:26→17:51)
[2019-11-24] MEDS: INSULIN ASPART 100 UNITS/ML 3 ML PEN SC SCH ×4 (08:27→20:47)
[2019-11-24] MEDS: PANTOprazole 40 MG TAB PO SCH (08:28)
[2019-11-24] MEDS: BUMETANIDE 1 MG TAB PO SCH ×2 (08:28→17:50)
[2019-11-24] MEDS: FLUTICASONE/VILANTEROL 100/25MCG 14 PUFFS/INHALER INH SCH (08:28)
[2019-11-24] MEDS: GABAPENTIN 300 MG CAP PO SCH ×3 (08:29→20:52)
[2019-11-24] MEDS: UMECLIDINIUM BROMIDE 62.5MCG/BLISTER 7 PUFFS/INHALER INH SCH (08:29)
--- NOTE | 2019-11-24 08:31 | Pharmacy Report ---
Pharmacy Glycemic Short Note 2 - Date of Service November 24, 2019 - Glycemic Short BSG Results (Last 24 hours): 11/23/19 11/23/19 11/23/19 11:43 16:03 20:46 POC Glucose 189 H 199 H 221 H 11/24/19 07:30 POC Glucose 187 H OUTPATIENT ANTIDIABETIC REGIMEN: * U500 insulin pump (upwards of 350 units/day) * A1c = 6.5% on 11/11/2019 Inpatient Insulin Regimen and Causes of Insulin Resistance: ASSESSMENT: 11/23: * Ms. Ayoub received 74 units of insulin yesterday * Fasting BSG only slightly improved - will increase basal * Current CF/CR is somewhat mismatched so will loosen CF with more basal on board and tighten CR * Will continue to hold off on transitioning back to U500 pump since current inpatient requirements are significantly less 11/22: * Patient received a total fo 58 units of insulin yesterday, 50 units basal + 8 units bolus * Fasting BSG this AM was 202 mg/dL. This is quite elevated from previous fastings. Will increase NPH by 20% today. * 24 hours BSGs are [phone]. Slight increase in post prandial levels so will tighten CF today. * Patient may be discharged to SNF sometime next week per provider so will not transition back to home U-500 pump until closer to that date. Depending on SNF and patient preference, could be discharged on basal-bolus regimen. PLAN FOR INPATIENT GLYCEMIC CONTROL: * Basal insulin - increase * NPH SQ BIDM per the following scale: * 30 units for BSG < 180 * 35 units for BSG 180 or above * Bolus insulin - loosen CF, tighten CR * NovoLog per scale ACHS or Q6hrs while NPO * Goal Range: Low 110 mg/dL - High 140 mg/dL * Correction Factor: 20 mg/dL/unit * Carb ratio: 1 unit / 15 gm CHO PLAN FOR DISCHARGE: * Resume U-500 insulin pump upon patient discharge. If SNF and patient prefer, could discharge on basal-bolus just while at SNF, then transition back to U- 500 pump upon discharge from SNF.
[2019-11-24] MEDS: ONDANSETRON INJ 2 MG/ML 2 ML VIAL IV PRN ×3 (08:45→21:27)
[2019-11-24] MEDS: BISMUTH SUBSALICYLATE SUSP PO PRN ×2 (10:03→21:01)
[2019-11-24] MEDS: ZINC SULFATE 220 MG CAPSULE PO SCH (11:50)
[2019-11-24] MEDS: FERROUS SULFATE 325 MG TAB PO SCH (11:50)
[2019-11-24] MEDS: MAGNESIUM OXIDE 400 MG TAB PO SCH (11:51)
[2019-11-24] MEDS ORDERED: bisacodyL 10 MG SUPP PR STA (13:49)
--- NOTE | 2019-11-24 14:10 | Hospitalist Progress Note ---
Date of Service November 24, 2019 Assessment & Plan (1) Sepsis: POA from buttocks ulcer/cellulitis -sepsis resolved continue unasyn, significant wound which will require extensive support to heal -blood culture x1 noted - since only 1/2 and coag negative staph -believed to be a contaminant Wound care evaluation on 11/22 by wound care physician feels the patient's wound is not progressing very well there is increased drainage to the point where the wound VAC was removed in favor of increased frequency of packing to try to debride and eventually reduce the amount of drainage once wound healing is progressing will look for rehab placement for wound care and pressure management at the site given her obesity with a BMI or 52. We will consider transition oral antibiotics at time of discharge (2) Cellulitis: Pressure ulcer of right & left buttock, extensive one of the largest Susannah have seen in my practice, left heel, and left lower lateral leg, both are stage 2-3 -augmentin started po bid due to low grade temp, -continue wound VAC and both nursing and physician and account review specialist following -PT/OT eval and treat - now agreeable to snf considering temo castillo (3) Chronic pain syndrome: continue home meds of gabapentin and oxycodone -pain control seems acceptable (4) Chronic indwelling Garcia catheter: Related to bed bound status Hx of recurrent UTI noted Takes nitrofurantoin for UTI proph Holding during current abx (5) Hypertension: continue current regimen (bumex now 0.5mg bid) this will also help with lower extremity swelling (6) Iron deficiency: continue home ferrous sulfate due to some issues with constipation hopefully remedied with oral this pt most certainly has anemia or chronic disease (7) Obesity hypoventilation syndrome: Noted - continue supportive care - (8) Anemia: was as low as 6.5 - now improved post transfusion - this is anemia of chronic disease stable in the 8-9 gm range, continue to follow periodically (9) DM II (diabetes mellitus, type II), controlled: Continue home pump A1c 6.5 sugars remain acceptable (10) Decubital ulcer: Status post surgical debridement by Dr. Kay on November 15. Patient had gotten stool under her VAC and so the VAC was removed and gauze placed instead. At this time we will reapply wound VAC. Wound VAC will be changed Tuesday and Tuesday. Continue offloading through [id number] mattress. (11) Deep tissue injury: Patient with deep tissue injuries of bilateral legs. Wounds of the legs to be dressed with Aquacel Ag and OPTi foam every other day as needed. Her left heel will be painted with Betadine daily. Admission and Anticipated Discharge Date Admission Date: November 10, 2019 Subjective This patient's biggest concern continues to be around her general overall weakness and her constipation. Patient is been given senna and MiraLAX without resolve. Concerns for bowel movements also are such that her wound is in her buttocks upper thigh area and we are concerned for soiling of the wound. I had extensive discussions with the patient's nurse, Alysa, and we believe we will plan that if she gets escalate doses of cathartics we can keep the wound clean Review of Systems Review of Systems: Mild distress and fatigue no headache, blurry or double vision no speech or swallowing issues no chest pain, pressure or palpitations Complains of feeling shortness of breath with minimal exertion, no cough or wheezes Mild abdominal pain, mild nausea without vomiting, complains of significant constipation no dysuria, hematuria or frequency no focal joint pain or swelling no back pain, CVA tenderness or radicular pain no focal signs of weakness or numbness or altered sensation markedly deconditioned no complaints or anxiety or depression Physical Exam Physical Exam: The patient appeared depressed, obese, discouraged Vital signs as documented. Head exam is normocephalic atraumatic no scleral icterus Neck is without JVD, thyromegaly, or carotid bruits. Lungs are with diminished breath sounds throughout Cardiac exam, Rhythm is regular.. No murmurs, rubs or gallops. Abdominal exam reveals normal bowel sounds, soft mildly tender, no masses Extremities are mildly edematous and both lower extremity have chronic venous stasis changes, pedal pulses are normal. Neurologic exam is alert and oriented, no focal loss of strength or sensation but overall very weak Skin is with very large skin defect at the buttocks and upper right thigh secondary to abscess drainage, wound is increased serous drainage Psychologically is with concerns for depression Results & Data Results & Data ([facility]) Vital Signs (Past 12 Hours) Vital Signs Temp Pulse Resp BP Pulse Ox 11/24/19 11:15 99.0 F 96 H 20 126/65 91 11/24/19 07:00 97.9 F 96 H 20 160/72 H 99 11/24/19 04:00 97.7 F 80 20 169/70 H 98 PG Care Time/CCT Total # of Minutes Spent Total Time Spent with Patient: Total time spent is greater than 50% in coordination of care (as documented) at patient's floor/unit and/or counseling patient: Coding Level of Care Code 35670 Subseq Hosp Care Lvl 3 Diagnoses Sepsis A41.9 Cellulitis L03.90 Site of cellulitis: unspecified site Chronic pain syndrome G89.4 Chronic indwelling Garcia catheter Z96.0 Hypertension I10 Hypertension type: essential hypertension Iron deficiency E61.1 Obesity hypoventilation syndrome E66.2 Anemia D64.9 DM II (diabetes mellitus, type II), controlled E11.29; Z79.4 Diabetes mellitus superintendent [employer] insulin use: with superintendent [employer] use Diabetes mellitus complication status: with kidney complications Diabetes mellitus complication detail: with other kidney complication Decubital ulcer L89.90 Deep tissue injury T14.8XXA (1) Cellulitis Site of cellulitis: unspecified site Qualified Code(s): L03.90 - Cellulitis, unspecified (2) Hypertension Hypertension type: essential hypertension Qualified Code(s): I10 - Essential (primary) hypertension (3) DM II (diabetes mellitus, type II), controlled Diabetes mellitus superintendent [employer] insulin use: with superintendent marine oil terminal use Diabetes mellitus complication status: with kidney complications Diabetes mellitus complication detail: with other kidney complication Qualified Code(s): E11.29 - Type 2 diabetes mellitus with other diabetic kidney complication; Z79.4 - director long term care (current) use of insulin
[2019-11-24] MEDS: LAVAGE SOLUTION 4000ML PO PRN ×2 (15:54→20:53)
[2019-11-24] MEDS: AMOXICILLIN/CLAVULANATE 875 MG TAB PO SCH (17:51)
[2019-11-24] MEDS: OMEGA-3 (PURIFIED FISH OIL) 1 GM CAP PO SCH (20:52)
[2019-11-24] MEDS: ATORVASTATIN 10 MG TAB PO SCH (20:53)
[2019-11-24] MEDS ORDERED: OXYCODONE HCL IR 5 MG TAB (IMMEDIATE RELEASE) PO SCH (21:00)
[2019-11-24] MEDS ORDERED: OXYCODONE HCL 20 MG/1 ML UDP PO PRN (21:45)
[2019-11-25] MEDS: LEVOTHYROXINE SODIUM 88 MCG TABLET PO SCH (05:39)
--- NOTE | 2019-11-25 07:43 | Pharmacy Report ---
Pharmacy Glycemic Short Note 2 - Date of Service November 25, 2019 - Glycemic Short BSG Results (Last 24 hours): 11/24/19 11/24/19 11/24/19 11:48 16:25 20:16 POC Glucose 224 H 181 H 227 H OUTPATIENT ANTIDIABETIC REGIMEN: * U500 insulin pump (upwards of 350 units/day) * A1c = 6.5% on 11/11/2019 Inpatient Insulin Regimen and Causes of Insulin Resistance: ASSESSMENT: 11/24: * Ms. Ayoub received 88 units of insulin yesterday * PO intake with each meal yesterday but CHO consumption fairly low * Postprandial BSGs remained elevated yesterday -> will tighten prandial coverage further * Fasting is also elevated. She continues to require more basal insulin, which I suspect is due to increasing PO intake over time while on such reduced doses compared to outpatient regimen. Will increase basal by 20-30% today. 11/23: * Ms. Ayoub received 74 units of insulin yesterday * Fasting BSG only slightly improved - will increase basal * Current CF/CR is somewhat mismatched so will loosen CF with more basal on board and tighten CR * Will continue to hold off on transitioning back to U500 pump since current inpatient requirements are significantly less 11/22: * Patient received a total fo 58 units of insulin yesterday, 50 units basal + 8 units bolus * Fasting BSG this AM was 202 mg/dL. This is quite elevated from previous fastings. Will increase NPH by 20% today. * 24 hours BSGs are [phone]. Slight increase in post prandial levels so will tighten CF today. * Patient may be discharged to SNF sometime next week per provider so will not transition back to home U-500 pump until closer to that date. Depending on SNF and patient preference, could be discharged on basal-bolus regimen. PLAN FOR INPATIENT GLYCEMIC CONTROL: * Basal insulin - increase * NPH 45 units this AM, then * NPH SQ BIDM per the following scale: * 40 units for BSG < 140 * 45 units for BSG 140-180 * 50 units for BSG > 180 * Bolus insulin - tighten CF and CR * NovoLog per scale ACHS or Q6hrs while NPO * Goal Range: Low 110 mg/dL - High 140 mg/dL * Correction Factor: 20 mg/dL/unit -> tighten to 10 mg/dL/unit starting w/ lunch * Carb ratio: 1 unit / 8 gm CHO -> tighten even further to 1:5 starting w/ lunch PLAN FOR DISCHARGE: * Resume U-500 insulin pump upon patient discharge. If SNF and patient prefer, could discharge on basal-bolus just while at SNF, then transition back to U- 500 pump upon discharge from SNF.
[2019-11-25] MEDS: FLUTICASONE/VILANTEROL 100/25MCG 14 PUFFS/INHALER INH SCH (08:22)
[2019-11-25] MEDS: UMECLIDINIUM BROMIDE 62.5MCG/BLISTER 7 PUFFS/INHALER INH SCH (08:22)
[2019-11-25] MEDS: INSULIN ASPART 100 UNITS/ML 3 ML PEN SC SCH ×4 (08:23→22:14)
[2019-11-25] MEDS: INSULIN HUMAN NPH SC SCH ×2 (08:23→17:26)
[2019-11-25] MEDS: PANTOprazole 40 MG TAB PO SCH (08:24)
[2019-11-25] MEDS: OXYCODONE HCL IR 5 MG TAB (IMMEDIATE RELEASE) PO SCH ×4 (08:24→22:13)
[2019-11-25] MEDS: DOCUSATE SODIUM/SENNA 50/8.6MG TAB PO SCH ×2 (08:24→22:15)
[2019-11-25] MEDS: GABAPENTIN 300 MG CAP PO SCH ×3 (08:24→22:13)
[2019-11-25] MEDS: BUMETANIDE 1 MG TAB PO SCH ×2 (08:24→16:57)
[2019-11-25] MEDS: AMOXICILLIN/CLAVULANATE 875 MG TAB PO SCH ×2 (08:24→16:57)
[2019-11-25] MEDS: NYSTATIN POWDER 15GM BTL EXT SCH ×2 (08:25→22:16)
--- NOTE | 2019-11-25 10:48 | Surgery Progress Note ---
Date of Service November 25, 2019 Assessment & Plan (1) Decubital ulcer: con't dressings per wound team Subjective no complaints Review of Systems Constitutional: no fever and no chills Cardiovascular: no chest pain Gastrointestinal: no abdominal pain Physical Exam Constitutional: well developed and well nourished Respiratory: normal respiratory effort, lungs clear to auscultation Cardiovascular: RRR, no murmur, no edema Skin: wound healing Results & Data Vital Signs (Past 12 Hours) Vital Signs Temp Pulse Pulse Pulse Resp BP Pulse Ox 11/25/19 07:57 36.4 C L 80 20 131/76 100 11/25/19 04:00 36.6 C 105 H 20 122/57 L 99 11/24/19 23:43 100 H 11/24/19 23:00 36.9 C 100 H 20 128/72 99
[2019-11-25] MEDS: FERROUS SULFATE 325 MG TAB PO SCH (11:53)
[2019-11-25] MEDS: ONDANSETRON INJ 2 MG/ML 2 ML VIAL IV PRN ×2 (11:53→17:40)
[2019-11-25] MEDS: ZINC SULFATE 220 MG CAPSULE PO SCH (11:54)
[2019-11-25] MEDS: MAGNESIUM OXIDE 400 MG TAB PO SCH (11:54)
[2019-11-25] MEDS: BISMUTH SUBSALICYLATE SUSP PO PRN (12:57)
--- NOTE | 2019-11-25 13:54 | Hospitalist Progress Note ---
Date of Service November 25, 2019 Assessment & Plan (1) Sepsis: POA from buttocks ulcer/cellulitis -sepsis resolved Initiated on Unasyn transition to Augmentin on 11/23 -blood culture x1 noted - since only 1/2 and coag negative staph -believed to be a contaminant Wound care evaluation on 11/22 by wound care physician feels the patient's wound is not progressing very well there is increased drainage to the point where the wound VAC was removed in favor of increased frequency of packing to try to debride and eventually reduce the amount of drainage once wound healing is progressing will look for rehab placement for wound care and pressure management at the site given her obesity with a BMI or 52. We will consider transition oral antibiotics at time of discharge (2) Cellulitis: Pressure ulcer of right & left buttock, extensive one of the largest Susannah have seen in my practice, left heel, and left lower lateral leg, both are stage 2-3 -augmentin started po bid due to low grade temp, -continue wound VAC and both nursing and physician and evaluation specialist following -PT/OT eval and treat - now agreeable to snf considering temo castillo (3) Chronic pain syndrome: continue home meds of gabapentin and oxycodone -pain control seems acceptable (4) Chronic indwelling Garcia catheter: Continues and chronic, related to bed bound status Hx of recurrent UTI noted Takes nitrofurantoin for UTI proph Holding during current abx (5) Hypertension: continue current regimen (bumex now 0.5mg bid) this will also help with lo wer extremity swelling (6) Depression: This is certainly situational patient does not wish to start medications at this time however we did consider initiating some medicine. If this continues to progress could consider a SSRI (7) Iron deficiency: continue home ferrous sulfate due to some issues with constipation hopefully remedied with oral this pt most certainly has anemia or chronic disease (8) Obesity hypoventilation syndrome: Noted - continue supportive care - (9) Anemia: was as low as 6.5 - now improved post transfusion - this is anemia of chronic disease stable in the 8-9 gm range, continue to follow periodically (10) DM II (diabetes mellitus, type II), controlled: Continue home pump A1c 6.5 sugars remain acceptable (11) Decubital ulcer: Status post surgical debridement by Dr. Kay on November 15. Patient had gotten stool under her VAC and so the VAC was removed and gauze placed instead. At this time we will reapply wound VAC. Wound VAC will be changed Tuesday and Tuesday. Continue offloading through [id number] mattress. (12) Deep tissue injury: Patient with deep tissue injuries of bilateral legs. Wounds of the legs to be dressed with Aquacel Ag and OPTi foam every other day as needed. Her left heel will be painted with Betadine daily. Admission and Anticipated Discharge Date Admission Date: November 10, 2019 Subjective the pt is somewhat depressed and blue today, that being mothers day and she is not able to visit with her family, did have small success with bowel movement in the PM of 11/23 Review of Systems Review of Systems: Mild distress and fatigue no headache, blurry or double vision no speech or swallowing issues no chest pain, pressure or palpitations no shortness of breath, cough or wheezes no abdominal pain, nausea or vomiting, still with some constipation no dysuria, hematuria or frequency no focal joint pain or significant lower extremity swelling no back pain, CVA tenderness or radicular pain Significant discomfort at her buttocks and upper thigh abscess/ decubitus ulcer no focal signs of weakness or numbness or altered sensation no complaints or anxiety or depression Physical Exam Physical Exam: The patient appeared well nourished and normally developed. She was somewhat down in spirits Vital signs as documented. Head exam is normocephalic atraumatic no scleral icterus Neck is without JVD, thyromegaly, or carotid bruits. Lungs are clear to auscultation, decreased at the bases Cardiac exam, Rhythm is regular.. No murmurs, rubs or gallops. Abdominal exam reveals normal bowel sounds, soft non tender, no masses Extremities are mildly edematous and both lower extremities of chronic venous stasis changes, bilateral pedal pulses are normal. Neurologic exam is alert and oriented, no focal loss of strength or sensation Skin is with significant drainage from her wound wound VAC is been off for the weekend will have reassessment of her wound by skin care team on 11/25 Psychologically is with concerns of depression Results & Data Results & Data ([facility]) Vital Signs (Past 12 Hours) Vital Signs Temp Pulse Pulse Resp BP Pulse Ox 11/25/19 12:32 98.1 F 53 L 20 133/84 97 11/25/19 07:57 97.5 F L 80 20 131/76 100 11/25/19 04:00 97.9 F 105 H 20 122/57 L 99 PG Care Time/CCT Total # of Minutes Spent Total Time Spent with Patient: Total time spent is greater than 50% in coordination of care (as documented) at patient's floor/unit and/or counseling patient: Coding Level of Care Code 26032 Subseq Hosp Care Lvl 2 Diagnoses Sepsis A41.9 Cellulitis L03.90 Site of cellulitis: unspecified site Chronic pain syndrome G89.4 Chronic indwelling Garcia catheter Z96.0 Hypertension I10 Hypertension type: essential hypertension Depression F32.9 Iron deficiency E61.1 Obesity hypoventilation syndrome E66.2 Anemia D64.9 DM II (diabetes mellitus, type II), controlled E11.29; Z79.4 Diabetes mellitus medical terminologist insulin use: with prison use Diabetes mellitus complication status: with kidney complications Diabetes mellitus complication detail: with other kidney complication Decubital ulcer L89.90 Deep tissue injury T14.8XXA (1) Cellulitis Site of cellulitis: unspecified site Qualified Code(s): L03.90 - Cellulitis, unspecified (2) Hypertension Hypertension type: essential hypertension Qualified Code(s): I10 - Essential (primary) hypertension (3) DM II (diabetes mellitus, type II), controlled Diabetes mellitus medical terminologist insulin use: with medical terminologist use Diabetes mellitus complication status: with kidney complications Diabetes mellitus complication detail: with other kidney complication Qualified Code(s): E11.29 - Type 2 diabetes mellitus with other diabetic kidney complication; Z79.4 - [facility] (current) use of insulin
[2019-11-25] MEDS: ACETAMINOPHEN 325 MG TAB PO PRN (14:05)
[2019-11-25] MEDS: OMEGA-3 (PURIFIED FISH OIL) 1 GM CAP PO SCH (22:15)
[2019-11-25] MEDS: ATORVASTATIN 10 MG TAB PO SCH (22:15)
[2019-11-26] MEDS: LEVOTHYROXINE SODIUM 88 MCG TABLET PO SCH (05:46)
[2019-11-26] MEDS: ONDANSETRON INJ 2 MG/ML 2 ML VIAL IV PRN ×2 (05:47→17:29)
[2019-11-26] MEDS: ACETAMINOPHEN 325 MG TAB PO PRN (05:53)
[2019-11-26 05:55] LABS: Hematocrit (blood only) 32.2 % (37-47); Hemoglobin 9.9 g/dL (12.0-16.0); Mean Corpuscular Hemoglobin 28.3 pg (25-34); Mean Corpuscular Hgb Conc 30.7 g/dL (32-36); Mean Platelet Volume 8.7 fL (7.4-10.4); Platelet Count 370 K/uL (130-400); RDW Coefficient of Variation 16.1 % (11.5-14.5); RDW Standard Deviation 53.8 fL (36.4-46.3); White Blood Count 13.52 K/uL (4.8-10.8)
[2019-11-26 06:24] LABS: BUN Creatinine Ratio 14.8 (10-20); Calcium 10.5 mg/dl (8.5-10.1); Creatinine Clr Calc Pharmacy 85.3 ml/min; Est GFR (Non-African American) 57.8; Potassium 4.4 mmol/L (3.5-5.1)
[2019-11-26] MEDS: OXYCODONE HCL IR 5 MG TAB (IMMEDIATE RELEASE) PO SCH ×4 (07:59→21:43)
[2019-11-26] MEDS: PANTOprazole 40 MG TAB PO SCH (08:00)
[2019-11-26] MEDS: GABAPENTIN 300 MG CAP PO SCH ×3 (08:00→21:41)
[2019-11-26] MEDS: DOCUSATE SODIUM/SENNA 50/8.6MG TAB PO SCH ×2 (08:01→21:41)
[2019-11-26] MEDS: UMECLIDINIUM BROMIDE 62.5MCG/BLISTER 7 PUFFS/INHALER INH SCH (08:01)
[2019-11-26] MEDS: AMOXICILLIN/CLAVULANATE 875 MG TAB PO SCH ×2 (08:38→16:54)
[2019-11-26] MEDS: INSULIN ASPART 100 UNITS/ML 3 ML PEN SC SCH ×4 (08:40→21:41)
[2019-11-26] MEDS: BUMETANIDE 1 MG TAB PO SCH ×2 (08:40→16:54)
[2019-11-26] MEDS: INSULIN HUMAN NPH SC SCH ×2 (08:41→17:26)
[2019-11-26] MEDS: FLUTICASONE/VILANTEROL 100/25MCG 14 PUFFS/INHALER INH SCH (11:24)
[2019-11-26] MEDS: FERROUS SULFATE 325 MG TAB PO SCH (11:25)
[2019-11-26] MEDS: MAGNESIUM OXIDE 400 MG TAB PO SCH (11:25)
[2019-11-26] MEDS: ZINC SULFATE 220 MG CAPSULE PO SCH (11:25)
[2019-11-26] MEDS: NYSTATIN POWDER 15GM BTL EXT SCH ×2 (11:27→21:44)
--- NOTE | 2019-11-26 12:45 | Surgery Progress Note ---
Date of Service S/P p Buttock and Sacral Decubitus Debridement pt is doing fine, no fever, November 26, 2019 Assessment & Plan (1) Decubital ulcer: con't dressings per wound team 11/26/19 12:44PM doing better, continue IV antibiotic wound dressing change once day. repeat labs in am, will F/U Subjective the pt is somewhat depressed and blue today, that being mothers day and she is not able to visit with her family, did have small success with bowel movement in the PM of 11/23 Physical Exam Constitutional: WD/WN, vitals as above well developed and well nourished Eyes: PERRL, conjunctivae normal, anicteric sclerae ENMT: external ear and nose normal, oropharynx normal Neck: trachea midline, no thyromegaly Respiratory: normal respiratory effort, lungs clear to auscultation Cardiovascular: RRR, no murmur, no edema Rate/Rhythm: regular rate and regular rhythm Gastrointestinal (Abdomen): normal bowel sounds, soft, nontender, no hepatosplenomegaly Skin: some drainage at lower back ulcer site, less redness, Neurologic: patellar DTR's 2+ bilat, sensation intact Psychiatric: Orientation: alert and oriented x 3 Results & Data Vital Signs (Past 12 Hours) Vital Signs Temp Pulse Pulse Resp BP Pulse Ox 11/26/19 12:11 36.8 C 78 17 138/83 92 11/26/19 10:29 78 11/26/19 04:22 36.9 C 86 18 151/72 H 98 Laboratory Results Abnormal lab results 11/25/19 11/25/19 11/26/19 Range/Units 16:32 20:10 05:36 WBC 13.52 H (4.8-10.8) K/uL RBC 3.50 L (4.2-5.4) M/uL Hgb 9.9 L (12.0-16.0) g/dL Hct 32.2 L (37-47) % MCHC 30.7 L (32-36) g/dL RDW Std Deviation 53.8 H (36.4-46.3) fL RDW Coeff of Tamra 16.1 H (11.5-14.5) % Sodium (136-145) mmol/L Chloride (98-107) mmol/L Carbon Dioxide (21-32) mmol/L Glucose (70-99) mg/dl POC Glucose 142 H 207 H (70-99) mg/dl Calcium (8.5-10.1) mg/dl 11/26/19 11/26/19 11/26/19 Range/Units 05:36 08:05 11:56 WBC (4.8-10.8) K/uL RBC (4.2-5.4) M/uL Hgb (12.0-16.0) g/dL Hct (37-47) % MCHC (32-36) g/dL RDW Std Deviation (36.4-46.3) fL RDW Coeff of Tamra (11.5-14.5) % Sodium 132 L (136-145) mmol/L Chloride 93 L (98-107) mmol/L Carbon Dioxide 33 H (21-32) mmol/L Glucose 203 H (70-99) mg/dl POC Glucose 222 H 187 H (70-99) mg/dl Calcium 10.5 H (8.5-10.1) mg/dl
[2019-11-26] MEDS: BISMUTH SUBSALICYLATE SUSP PO PRN (12:51)
[2019-11-26] MEDS: ONDANSETRON 4 MG OD TAB PO PRN (16:57)
--- NOTE | 2019-11-26 17:37 | Hospitalist Progress Note ---
Date of Service November 26, 2019 Assessment & Plan (1) Sepsis: POA from buttocks ulcer/cellulitis -sepsis resolved Initiated on Unasyn transition to Augmentin on 11/23 -blood culture x1 noted - since only 1/2 and coag negative staph -believed to be a contaminant -now back on wound vac. working towards placement - appearing that [facility] is only viable option, even with bed availability not until next week appears pt would do much better with ongoing care at a facility than home -- so would continue care here until [facility] able to take her -continue current care otherwise (2) Cellulitis: Pressure ulcer of right & left buttock, extensive one of the largest Susannah have seen in my practice, left heel, and left lower lateral leg, both are stage 2-3 -continue augmentin until wound has healed more (3) Chronic pain syndrome: continue home meds of gabapentin and oxycodone -no complaints of pain today (4) Chronic indwelling Garcia catheter: Continues and chronic, related to bed bound status Hx of recurrent UTI noted Takes nitrofurantoin for UTI proph Holding during current abx (5) Hypertension: continue current regimen and follow BP and occasional BMP - right now both acceptable. (6) Depression: seems more upbeat and hopeful today since she has been told that her wound appears to be progressing well. (7) Iron deficiency: FeSO4 as per home regimen (8) Obesity hypoventilation syndrome: Noted - continue supportive care - doing fairly well, no significant respiratory symptoms at this time (9) Anemia: was as low as 6.5 - now improved post transfusion - this is anemia of chronic disease stable in the 8-9 gm range, continue to follow periodically (10) DM II (diabetes mellitus, type II), controlled: Continue home pump A1c 6.5 sugars slightly high end of acceptable (11) Decubital ulcer: Status post surgical debridement by Dr. Kay on November 15. ongoing local wound care --> dressing changes//vac (12) Deep tissue injury: Patient with deep tissue injuries of bilateral legs. ongoing local wound care as well (13) DVT prophylaxis: SCDs, pt bedbound at baseline (14) Discharge planning issues: SNF most viable option for ongoing care of wound - unfortunately no beds at [facility] anticipated until next week; but home seems much riskier option given her ulcer/depth/etc Admission and Anticipated Discharge Date Admission Date: November 10, 2019 Subjective feeling ok - no significant pain. notes they were able to reapply wound vac and she's happy because she was informed that the area of ulceration apperas to be healing well worried about bed availablility at [facility] - but does want to go there for ongoing care after discharge. Review of Systems Review of Systems: All systems reviewed & are unremarkable except as noted in HPI & below Physical Exam Physical Exam: vitals noted nad heent nc at mmm breathing unlabored no a ccessory muscles good effort skin no rashes no pallor or icterus cn 2-12 grossly intact gross motor/sensory intact. area of ulceration unable to be visualized due to positioning Results & Data Results & Data ([facility]) Vital Signs (Past 12 Hours) Vital Signs Temp Pulse Pulse Resp BP Pulse Ox 11/26/19 16:17 98.2 F 81 18 109/55 L 94 11/26/19 14:55 107 H 11/26/19 12:11 98.2 F 78 17 138/83 92 11/26/19 10:29 78 PG Care Time/CCT Total # of Minutes Spent Total Time Spent with Patient: Total time spent is greater than 50% in coordination of care (as documented) at patient's floor/unit and/or counseling patient: Coding Level of Care Code 86744 Subseq Hosp Care Lvl 3 Diagnoses Sepsis A41.9 Cellulitis L03.90 Site of cellulitis: unspecified site Chronic pain syndrome G89.4 Chronic indwelling Garcia catheter Z96.0 Hypertension I10 Hypertension type: essential hypertension Depression F32.9 Iron deficiency E61.1 Obesity hypoventilation syndrome E66.2 Anemia D64.9 DM II (diabetes mellitus, type II), controlled E11.29; Z79.4 Diabetes mellitus fdc insulin use: with terminal worker use Diabetes mellitus complication status: with kidney complications Diabetes mellitus complication detail: with other kidney complication Decubital ulcer L89.90 Deep tissue injury T14.8XXA DVT prophylaxis Z29.9 Discharge planning issues Z02.9 (1) Cellulitis Site of cellulitis: unspecified site Qualified Code(s): L03.90 - Cellulitis, unspecified (2) Hypertension Hypertension type: essential hypertension Qualified Code(s): I10 - Essential (primary) hypertension (3) DM II (diabetes mellitus, type II), controlled Diabetes mellitus terminal worker insulin use: with fdc use Diabetes mellitus complication status: with kidney complications Diabetes mellitus complication detail: with other kidney complication Qualified Code(s): E11.29 - Type 2 diabetes mellitus with other diabetic kidney complication; Z79.4 - superintendent [employer] terminal (current) use of insulin
[2019-11-26] MEDS: ATORVASTATIN 10 MG TAB PO SCH (21:40)
[2019-11-26] MEDS: OMEGA-3 (PURIFIED FISH OIL) 1 GM CAP PO SCH (21:40)
[2019-11-27] MEDS: ACETAMINOPHEN 325 MG TAB PO PRN (03:45)
[2019-11-27] MEDS: LEVOTHYROXINE SODIUM 88 MCG TABLET PO SCH (05:46)
[2019-11-27] MEDS: OXYCODONE HCL IR 5 MG TAB (IMMEDIATE RELEASE) PO SCH ×4 (08:47→20:53)
[2019-11-27] MEDS: DOCUSATE SODIUM/SENNA 50/8.6MG TAB PO SCH ×2 (08:47→20:54)
[2019-11-27] MEDS: PANTOprazole 40 MG TAB PO SCH (08:48)
[2019-11-27] MEDS: GABAPENTIN 300 MG CAP PO SCH ×3 (08:48→20:54)
[2019-11-27] MEDS: FLUTICASONE/VILANTEROL 100/25MCG 14 PUFFS/INHALER INH SCH (08:49)
[2019-11-27] MEDS: UMECLIDINIUM BROMIDE 62.5MCG/BLISTER 7 PUFFS/INHALER INH SCH (08:49)
[2019-11-27] MEDS: INSULIN HUMAN NPH SC SCH ×2 (08:52→17:12)
[2019-11-27] MEDS: INSULIN ASPART 100 UNITS/ML 3 ML PEN SC SCH ×4 (08:54→20:52)
[2019-11-27] MEDS: AMOXICILLIN/CLAVULANATE 875 MG TAB PO SCH ×2 (08:59→16:27)
[2019-11-27] MEDS: BUMETANIDE 1 MG TAB PO SCH ×2 (08:59→16:27)
[2019-11-27] MEDS: ONDANSETRON INJ 2 MG/ML 2 ML VIAL IV PRN ×2 (09:00→16:39)
[2019-11-27] MEDS: NYSTATIN POWDER 15GM BTL EXT SCH ×2 (10:04→20:54)
--- NOTE | 2019-11-27 11:09 | Pharmacy Report ---
Pharmacy Glycemic Short Note 2 - Date of Service November 27, 2019 - Glycemic Short BSG Results (Last 24 hours): 11/26/19 11/26/19 11/26/19 11:56 16:54 20:23 POC Glucose 187 H 196 H 222 H 11/27/19 07:27 POC Glucose 245 H OUTPATIENT ANTIDIABETIC REGIMEN: * U500 insulin pump (upwards of 350 units/day) * A1c = 6.5% on 11/11/2019 ASSESSMENT: 11/26: * Patient required total of 142 units of insulin yesterday, of which 100 were NPH * Fasting BSG continues to rise this morning, despite dosage increase yesterday - plan to adjust NPH scale slightly * Plan to tighten CF/CR this AM PLAN FOR INPATIENT GLYCEMIC CONTROL: * Basal insulin - increase * NPH 60 units this AM, then * NPH SQ BIDM per the following scale: * 50 units for BSG < 140 * 55 units for BSG 140-180 * 60 units for BSG > 180 * Bolus insulin - tighten CF and CR * NovoLog per scale ACHS or Q6hrs while NPO * Goal Range: Low 110 mg/dL - High 140 mg/dL * Correction Factor: 8 mg/dL/unit * Carb ratio: 1 unit / 4 PLAN FOR DISCHARGE: * Resume U-500 insulin pump upon patient discharge. If SNF and patient prefer, could discharge on basal-bolus just while at SNF, then transition back to U- 500 pump upon discharge from SNF.
--- NOTE | 2019-11-27 11:57 | Surgery Progress Note ---
Date of Service pt said she feels better, no fever, November 27, 2019 Assessment & Plan (1) Decubital ulcer: con't dressings per wound team 11/26/19 12:44PM doing better, continue po antibiotic wound dressing change once day. repeat labs in am, will F/U 11/27/19 11:55AM stable, U/A today continue treatment will F/U Subjective feeling ok - no significant pain. notes they were able to reapply wound vac and she's happy because she was informed that the area of ulceration apperas to be healing well worried about bed availablility at [facility] - but does want to go there for ongoing care after discharge. Review of Systems Constitutional: Obesity Eyes: as per Subjective / HPI Ear, Nose, Mouth, Throat: as per Subjective / HPI Respiratory: chronic respiratory failure with hypoxia and hypercapnia, COPD Cardiovascular: Additional Comments: HTN, abnormal EKG Genitourinary: HOLLY, chronic barboza catheter, UTI Neurologic: as per Subjective / HPI Psychiatric: as per Subjective / HPI Endocrine: DM Hematologic / Lymphatic: anemia Physical Exam Constitutional: WD/WN, vitals as above well developed and well nourished Eyes: PERRL, conjunctivae normal, anicteric sclerae ENMT: external ear and nose normal, oropharynx normal Neck: trachea midline, no thyromegaly Respiratory: normal respiratory effort, lungs clear to auscultation Cardiovascular: RRR, no murmur, no edema Rate/Rhythm: regular rate and regular rhythm Gastrointestinal (Abdomen): normal bowel sounds, soft, nontender, no hepatosplenomegaly Skin: pt dose not want to turn her back to show her lower back wound, Neurologic: patellar DTR's 2+ bilat, sensation intact Psychiatric: Orientation: alert and oriented x 3 Results & Data Vital Signs (Past 12 Hours) Vital Signs Temp Pulse Pulse Resp BP Pulse Ox 11/27/19 11:32 37.0 C 88 20 129/74 100 11/27/19 07:05 36.8 C 79 20 107/68 99 11/27/19 04:19 36.9 C 78 19 132/63 100 11/27/19 00:10 79
[2019-11-27] MEDS: MAGNESIUM OXIDE 400 MG TAB PO SCH (12:36)
[2019-11-27] MEDS: ZINC SULFATE 220 MG CAPSULE PO SCH (12:36)
[2019-11-27] MEDS: FERROUS SULFATE 325 MG TAB PO SCH (12:37)
[2019-11-27] MEDS: BISMUTH SUBSALICYLATE SUSP PO PRN (12:42)
--- NOTE | 2019-11-27 13:35 | Hospitalist Progress Note ---
Date of Service November 27, 2019 Assessment & Plan (1) Sepsis: POA from buttocks ulcer/cellulitis -sepsis resolved Initiated on Unasyn transition to Augmentin on 11/23 -blood culture x1 noted - since only 1/2 and coag negative staph -believed to be a contaminant -now back on wound vac. 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 with this (2) Cellulitis: Pressure ulcer of right & left buttock, extensive one of the largest Susannah have seen in my practice, left heel, and left lower lateral leg, both are stage 2-3 -continue augmentin until wound has healed more although it seems that functionally cellulitis has improved (3) Chronic pain syndrome: continue home meds of gabapentin and oxycodone -pain seems reasonably well controlled (4) Chronic indwelling Garcia catheter: Continues and chronic, related to bed bound status Hx of recurrent UTI noted Takes nitrofurantoin for UTI proph Holding during current abx (5) Hypertension: continue current regimen and follow BP and occasional BMP - blood pressures show reasonable control. (6) Depression: seems more upbeat and hopeful today since she has been told that her wound appears to be progressing well. (7) Iron deficiency: iron as per home regimen (8) Obesity hypoventilation syndrome: Noted - continue supportive care - doing fairly well, no significant respiratory symptoms at this time (9) Anemia: was as low as 6.5 - now improved post transfusion - this is anemia of chronic disease stable in the 8-9 gm range, continue to follow periodically (10) DM II (diabetes mellitus, type II), controlled: continue insulins A1c 6.5 sugars slightly high end of acceptable - insulins titrated up by pharmacy (11) Decubital ulcer: Status post surgical debridement by Dr. Kay on November 15. ongoing local wound care --> dressing changes//vac (12) Deep tissue injury: Patient with deep tissue injuries of bilateral legs. ongoing local wound care as well (13) DVT prophylaxis: SCDs, pt bedbound at baseline (14) Discharge planning issues: SNF most viable option for ongoing care of wound - unfortunately no beds at [facility] anticipated until next week; but home seems much riskier option given her ulcer/depth/etc - would prefer to transition to snf once able Admission and Anticipated Discharge Date Admission Date: November 10, 2019 Subjective generally feeling well - her main concern is just waiting on bed at [facility] - worried about staying in the hospital until then - seems worried that she'll get discharged without being ready/without feeling safe. readily admits now that she doesn't think she would be able to get enough care at home to have this heal - and notes that she would very much prefer to go to snf for time to heal. otherwise no physical complaints Review of Systems Review of Systems: All systems reviewed & are unremarkable except as noted in HPI & below Physical Exam Physical Exam: gen aao pleasant nad heent nc at mmm breathing unlabored no accessory muscles good effort skin no rashes no pallor or icterus neuro no focal deficits. see wound/nursing documentation in regards to ulcer Results & Data Results & Data ([facility]) Vital Signs (Past 12 Hours) Vital Signs Temp Pulse Resp BP Pulse Ox 11/27/19 11:32 98.6 F 88 20 129/74 100 11/27/19 07:05 98.2 F 79 20 107/68 99 11/27/19 04:19 98.4 F 78 19 132/63 100 PG Care Time/CCT Total # of Minutes Spent Total Time Spent with Patient: Total time spent is greater than 50% in coordination of care (as documented) at patient's floor/unit and/or counseling patient: Coding Level of Care Code 51502 Subseq Hosp Care Lvl 3 Diagnoses Sepsis A41.9 Cellulitis L03.90 Site of cellulitis: unspecified site Chronic pain syndrome G89.4 Chronic indwelling Garcia catheter Z96.0 Hypertension I10 Hypertension type: essential hypertension Depression F32.9 Iron deficiency E61.1 Obesity hypoventilation syndrome E66.2 Anemia D64.9 DM II (diabetes mellitus, type II), controlled E11.29; Z79.4 Diabetes mellitus 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 mining 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 insulin use: with long-term use Diabetes mellitus complication status: with kidney complications Diabetes mellitus complication detail: with other kidney complication Decubital ulcer L89.90 Deep tissue injury T14.8XXA DVT prophylaxis Z29.9 Discharge planning issues Z02.9 (1) Cellulitis Site of cellulitis: unspecified site Qualified Code(s): L03.90 - Cellulitis, unspecified (2) Hypertension Hypertension type: essential hypertension Qualified Code(s): I10 - Essential (primary) hypertension (3) DM II (diabetes mellitus, type II), controlled Diabetes mellitus long wall mining 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 insulin use: with long-term use Diabetes mellitus complication status: with kidney complications Diabetes mellitus complication detail: with other kidney complication Qualified Code(s): E11.29 - Type 2 diabetes mellitus with other diabetic kidney complication; Z79.4 - snf (current) use of insulin
[2019-11-27 15:06] LABS: Appearance Urine Clear (Clear); Bacteria Urine Automated Negative (Negative); Bilirubin Urine Negative (Negative); Blood Urine Trace (Negative); Color Urine Yellow; Epithelial Cell Urine Auto >30 /lpf (0-5); Glucose Urine UA Negative (Negative); Ketones Urine Negative (Negative); Leukocyte Esterase Urine 1+ (Negative); Nitrite Urine Negative (Negative); Protein Urine Negative (Negative); RBC Urine Automated 0-4 /hpf (0-4); Specific Gravity Urine 1.022 (1.000-1.030); Urobilinogen Urine Negative (Negative)
[2019-11-27] MEDS: OMEGA-3 (PURIFIED FISH OIL) 1 GM CAP PO SCH (20:53)
[2019-11-27] MEDS: ATORVASTATIN 10 MG TAB PO SCH (20:54)
[2019-11-28] MEDS: ONDANSETRON INJ 2 MG/ML 2 ML VIAL IV PRN ×3 (00:05→15:25)
[2019-11-28] MEDS: INSULIN ASPART 100 UNITS/ML 3 ML PEN SC SCH ×6 (00:06→20:37)
[2019-11-28] MEDS: LEVOTHYROXINE SODIUM 88 MCG TABLET PO SCH (04:52)
[2019-11-28 07:09] LABS: Hematocrit (blood only) 31.7 % (37-47); Hemoglobin 9.8 g/dL (12.0-16.0); Mean Corpuscular Hemoglobin 28.7 pg (25-34); Mean Corpuscular Hgb Conc 30.9 g/dL (32-36); Mean Corpuscular Volume 92.7 fL (80-100); Mean Platelet Volume 9.3 fL (7.4-10.4); Platelet Count 347 K/uL (130-400); RDW Coefficient of Variation 16.1 % (11.5-14.5); RDW Standard Deviation 54.2 fL (36.4-46.3); Red Blood Count 3.42 M/uL (4.2-5.4); White Blood Count 15.07 K/uL (4.8-10.8)
[2019-11-28 07:36] LABS: BUN Creatinine Ratio 28.1 (10-20); Calcium 10.3 mg/dl (8.5-10.1); Creatinine Clr Calc Pharmacy 93.1 ml/min; Est GFR (African American) 74.8; Est GFR (Non-African American) 64.6; Potassium 4.3 mmol/L (3.5-5.1)
[2019-11-28] MEDS: OXYCODONE HCL IR 5 MG TAB (IMMEDIATE RELEASE) PO SCH ×4 (08:57→20:31)
[2019-11-28] MEDS: ONDANSETRON 4 MG OD TAB PO PRN (08:57)
[2019-11-28] MEDS: AMOXICILLIN/CLAVULANATE 875 MG TAB PO SCH (08:58)
[2019-11-28] MEDS: PANTOprazole 40 MG TAB PO SCH (08:58)
[2019-11-28] MEDS: CHOLECALCIFEROL 1,000 UNITS 25 MCG TAB PO SCH (08:59)
[2019-11-28] MEDS: DOCUSATE SODIUM/SENNA 50/8.6MG TAB PO SCH ×2 (08:59→20:32)
[2019-11-28] MEDS: GABAPENTIN 300 MG CAP PO SCH ×3 (08:59→20:32)
[2019-11-28] MEDS: FLUTICASONE/VILANTEROL 100/25MCG 14 PUFFS/INHALER INH SCH (09:00)
[2019-11-28] MEDS: BUMETANIDE 1 MG TAB PO SCH ×2 (09:00→17:06)
[2019-11-28] MEDS: UMECLIDINIUM BROMIDE 62.5MCG/BLISTER 7 PUFFS/INHALER INH SCH (09:00)
[2019-11-28] MEDS: NYSTATIN POWDER 15GM BTL EXT SCH ×2 (09:01→20:33)
[2019-11-28] MEDS: INSULIN HUMAN NPH SC SCH ×2 (09:04→17:13)
[2019-11-28] MEDS: BISMUTH SUBSALICYLATE SUSP PO PRN ×2 (10:10→18:34)
--- NOTE | 2019-11-28 11:21 | Surgery Progress Note ---
Date of Service November 28, 2019 Assessment & Plan (1) Decubital ulcer: POD # 12 s/p debridement of sacral and buttock decubitus ulcers. Wound vac's in place. - leukocytosis with mild increase today from 13K to 15K, afebrile - U/A 11/27/19 negative, chronic Garcia - unable to exam sacral/buttock today, patient refused to be turned until wound vac nurse changes wound vac tonight Plan: Given increase in leukocytosis, may need transition back to IV Zosyn from PO Augmentin continue current wound management continue medical management Hopefully patient will be compliant with turning for examination tomorrow Await SNF placement Dr. Arce has seen patient, agrees with above. Subjective "just tired today" + nausea but at baseline just want to rest, I was turned multiple times last night and I just want to relax today Physical Exam Constitutional: WD/WN, vitals as above + morbidly obese; not ill appearing Respiratory: normal respiratory effort; no respiratory distress Skin: UNABLE TO EXAMINE BUTTOCKS/SACRAL AREA PATIENT REFUSED TO BE TURNED. WOUND CARE COMING THIS EVENING FOR WOUND VAC/DRESSING CHANGE. PER NURSE PATIENT REFUSING TO TURN OR ANY BATHING UNTIL WOUND NURSE COMES TO CHANGE DRESSING. Psychiatric: Orientation: alert and oriented x 3 Results & Data Vital Signs (Past 12 Hours) Vital Signs Temp Pulse Resp BP Pulse Ox 11/28/19 04:00 36.8 C 79 20 122/63 100 Laboratory Results 11/28/19 11/28/19 11/28/19 Range/Units 07:44 06:40 06:40 WBC 15.07 H (4.8-10.8) K/uL RBC 3.42 L (4.2-5.4) M/uL Hgb 9.8 L (12.0-16.0) g/dL Hct 31.7 L (37-47) % MCV 92.7 (80-100) fL MCH 28.7 (25-34) pg MCHC 30.9 L (32-36) g/dL RDW Std Deviation 54.2 H (36.4-46.3) fL RDW Coeff of Tamra 16.1 H (11.5-14.5) % Plt Count 347 (130-400) K/uL MPV 9.3 (7.4-10.4) fL Sodium 135 L (136-145) mmol/L Potassium 4.3 (3.5-5.1) mmol/L Chloride 96 L (98-107) mmol/L Carbon Dioxide 33 H (21-32) mmol/L Anion Gap 6.0 (3-11) BUN 26 H (7-18) mg/dl Creatinine 0.94 (0.6-1.2) mg/dl Est Cr Clr Drug Dosing 93.1 ml/min Est GFR ( Amer) 74.8 Est GFR (Non-Af Amer) 64.6 BUN/Creatinine Ratio 28.1 H (10-20) Glucose 159 H (70-99) mg/dl POC Glucose 168 H (70-99) mg/dl Calcium 10.3 H (8.5-10.1) mg/dl Urine Color Urine Appearance (Clear) Urine pH (4.5-7.5) Ur Specific Melba (1.000-1.030) Urine Protein (Negative) Urine Glucose (UA) (Negative) Urine Ketones (Negative) Urine Blood (Negative) Urine Nitrite (Negative) Urine Bilirubin (Negative) Urine Urobilinogen (Negative) Ur Leukocyte Esterase (Negative) Urine WBC (Auto) (0-5) /hpf Urine RBC (Auto) (0-4) /hpf U Hyaline Cast (Auto) (0-5) /lpf U Epithel Cells (Auto) (0-5) /lpf Urine Bacteria (Auto) (Negative) 11/28/19 11/28/19 11/27/19 Range/Units 04:13 00:04 20:43 WBC (4.8-10.8) K/uL RBC (4.2-5.4) M/uL Hgb (12.0-16.0) g/dL Hct (37-47) % MCV (80-100) fL MCH (25-34) pg MCHC (32-36) g/dL RDW Std Deviation (36.4-46.3) fL RDW Coeff of Tamra (11.5-14.5) % Plt Count (130-400) K/uL MPV (7.4-10.4) fL Sodium (136-145) mmol/L Potassium (3.5-5.1) mmol/L Chloride (98-107) mmol/L Carbon Dioxide (21-32) mmol/L Anion Gap (3-11) BUN (7-18) mg/dl Creatinine (0.6-1.2) mg/dl Est Cr Clr Drug Dosing ml/min Est GFR ( Amer) Est GFR (Non-Af Amer) BUN/Creatinine Ratio (10-20) Glucose (70-99) mg/dl POC Glucose 144 H 185 H 172 H (70-99) mg/dl Calcium (8.5-10.1) mg/dl Urine Color Urine Appearance (Clear) Urine pH (4.5-7.5) Ur Specific Melba (1.000-1.030) Urine Protein (Negative) Urine Glucose (UA) (Negative) Urine Ketones (Negative) Urine Blood (Negative) Urine Nitrite (Negative) Urine Bilirubin (Negative) Urine Urobilinogen (Negative) Ur Leukocyte Esterase (Negative) Urine WBC (Auto) (0-5) /hpf Urine RBC (Auto) (0-4) /hpf U Hyaline Cast (Auto) (0-5) /lpf U Epithel Cells (Auto) (0-5) /lpf Urine Bacteria (Auto) (Negative) 11/27/19 11/27/19 11/27/19 Range/Units 16:44 14:48 11:53 WBC (4.8-10.8) K/uL RBC (4.2-5.4) M/uL Hgb (12.0-16.0) g/dL Hct (37-47) % MCV (80-100) fL MCH (25-34) pg MCHC (32-36) g/dL RDW Std Deviation (36.4-46.3) fL RDW Coeff of Tamra (11.5-14.5) % Plt Count (130-400) K/uL MPV (7.4-10.4) fL Sodium (136-145) mmol/L Potassium (3.5-5.1) mmol/L Chloride (98-107) mmol/L Carbon Dioxide (21-32) mmol/L Anion Gap (3-11) BUN (7-18) mg/dl Creatinine (0.6-1.2) mg/dl Est Cr Clr Drug Dosing ml/min Est GFR ( Amer) Est GFR (Non-Af Amer) BUN/Creatinine Ratio (10-20) Glucose (70-99) mg/dl POC Glucose 166 H 233 H (70-99) mg/dl Calcium (8.5-10.1) mg/dl Urine Color Yellow Urine Appearance Clear (Clear) Urine pH 5.0 (4.5-7.5) Ur Specific Melba 1.022 (1.000-1.030) Urine Protein Negative (Negative) Urine Glucose (UA) Negative (Negative) Urine Ketones Negative (Negative) Urine Blood Trace H (Negative) Urine Nitrite Negative (Negative) Urine Bilirubin Negative (Negative) Urine Urobilinogen Negative (Negative) Ur Leukocyte Esterase 1+ H (Negative) Urine WBC (Auto) 5-10 H (0-5) /hpf Urine RBC (Auto) 0-4 (0-4) /hpf U Hyaline Cast (Auto) 1-5 (0-5) /lpf U Epithel Cells (Auto) >30 H (0-5) /lpf Urine Bacteria (Auto) Negative (Negative)
--- NOTE | 2019-11-28 11:46 | Hospitalist Progress Note ---
Date of Service November 28, 2019 Assessment & Plan (1) Sepsis: POA from buttocks ulcer/cellulitis -sepsis resolved Initiated on Unasyn transition to Augmentin on 11/23 -blood culture x1 noted - since only 1/2 and coag negative staph -believed to be a contaminant -now back on wound vac. 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 (2) Cellulitis: Pressure ulcer of right & left buttock, extensive one of the largest Susannah have seen in my practice, left heel, and left lower lateral leg, both are stage 2-3 -continue abx until wound has healed more although it seems that functionally cellulitis has improved (3) Chronic pain syndrome: continue home meds of gabapentin and oxycodone -pain seems reasonably well controlled (4) Chronic indwelling Garcia catheter: Continues and chronic, related to bed bound status Hx of recurrent UTI noted Takes nitrofurantoin for UTI proph Holding during current abx (5) Hypertension: continue current regimen and follow BP and occasional BMP - blood pressures show reasonable control. - Still stable today at 120/60. (6) Depression: seems more upbeat and hopeful today since she has been told that her wound appears to be progressing well. (7) Iron deficiency: iron as per home regimen (8) Obesity hypoventilation syndrome: Noted - continue supportive care - doing fairly well, no significant respiratory symptoms at this time (9) Anemia: was as low as 6.5 - now improved post transfusion - this is anemia of chronic disease stable in the 8-9 gm range, continue to follow periodically (10) DM II (diabetes mellitus, type II), controlled: continue insulins A1c 6.5 sugars slightly high end of acceptable - insulins titrated up by pharmacy (11) Decubital ulcer: Status post surgical debridement by Dr. Kay on November 15. ongoing local wound care --> dressing changes//vac (12) Deep tissue injury: Patient with deep tissue injuries of bilateral legs. ongoing local wound care as well (13) DVT prophylaxis: SCDs, pt bedbound at baseline (14) Discharge planning issues: SNF most viable option for ongoing care of wound - unfortunately no beds at [facility] anticipated until next week; but home seems much riskier option given her ulcer/depth/etc - would prefer to transition to snf once able Admission and Anticipated Discharge Date Admission Date: November 10, 2019 Subjective Reports her knees are both sore today. No redness, no swelling. Notes that she has chronic arthritis and this is similar to her usual pain. Reports no fevers/chills, chest pain, shortness of breath, abdominal pain, nausea, or vomiting. Physical Exam Constitutional: WD/WN, vitals as above + physical limitations and cooperative Eyes: EOM intact bilaterally; no conjunctival abnormality ENMT: external ear and nose normal, oropharynx normal Neck: trachea midline, no thyromegaly normal visual inspection Respiratory: normal respiratory effort, lungs clear to auscultation no respiratory distress Cardiovascular: RRR, no murmur, no edema Gastrointestinal (Abdomen): Inspection/Auscultation: abdomen normal to inspection; abdomen not distended Musculoskeletal: no cyanosis or clubbing, extremities motor strength 5/5 Knee: knee normal to inspection, no effusion and no skin erythema Skin: no rashes, warm and dry Neurologic: moves all extremities and awake Psychiatric: Orientation: alert, oriented to person and cooperative Results & Data Results & Data ([facility] [place]) Vital Signs (Past 12 Hours) Vital Signs Temp Pulse Pulse Resp BP Pulse Ox 11/28/19 09:00 73 11/28/19 04:00 36.8 C 79 20 122/63 100 PG Care Time/CCT Total # of Minutes Spent Total Time Spent with Patient: Total time spent is greater than 50% in coordination of care (as documented) at patient's floor/unit and/or counseling patient: Coding Level of Care Code 77317 Subseq Hosp Care Lvl 2 Diagnoses Sepsis A41.9 Cellulitis L03.90 Site of cellulitis: unspecified site Chronic pain syndrome G89.4 Chronic indwelling Garcia catheter Z96.0 Hypertension I10 Hypertension type: essential hypertension Depression F32.9 Iron deficiency E61.1 Obesity hypoventilation syndrome E66.2 Anemia D64.9 DM II (diabetes mellitus, type II), controlled E11.29; Z79.4 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 use: with hydraulics engineer use Diabetes mellitus complication status: with kidney complications Diabetes mellitus complication detail: with other kidney complication Decubital ulcer L89.90 Deep tissue injury T14.8XXA DVT prophylaxis Z29.9 Discharge planning issues Z02.9 (1) Cellulitis Site of cellulitis: unspecified site Qualified Code(s): L03.90 - Cellulitis, unspecified (2) Hypertension Hypertension type: essential hypertension Qualified Code(s): I10 - Essential (primary) hypertension (3) DM II (diabetes mellitus, type II), controlled 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
[2019-11-28] MEDS: MAGNESIUM OXIDE 400 MG TAB PO SCH (12:41)
[2019-11-28] MEDS: ZINC SULFATE 220 MG CAPSULE PO SCH (12:41)
[2019-11-28] MEDS: FERROUS SULFATE 325 MG TAB PO SCH (12:42)
[2019-11-28] MEDS: AMPICILLIN/SULBACTAM SOD 3,000 MG in 0.9 % SODIUM CHLORIDE 100 ML IV SCH ×2 (12:42→17:07)
--- NOTE | 2019-11-28 14:14 | Pharmacy Report ---
Pharmacy Glycemic Short Note 2 - Date of Service November 28, 2019 - Glycemic Short BSG Results (Last 24 hours): 11/27/19 11/27/19 11/28/19 16:44 20:43 00:04 Glucose POC Glucose 166 H 172 H 185 H 11/28/19 11/28/19 11/28/19 04:13 06:40 07:44 Glucose 159 H POC Glucose 144 H 168 H 11/28/19 11:39 Glucose POC Glucose 230 H OUTPATIENT ANTIDIABETIC REGIMEN: * U500 insulin pump (upwards of 350 units/day) * A1c = 6.5% on 11/11/2019 ASSESSMENT: 11/27: * Patient received total of 182 units of insulin yesterday, of which 115 were NPH * Fasting BSG much improved at 159 mg/dL - however did require additional insulin overnight / continue same scale * Plan to tighten CF today 11/26: * Patient required total of 142 units of insulin yesterday, of which 100 were NPH * Fasting BSG continues to rise this morning, despite dosage increase yesterday - plan to adjust NPH scale slightly * Plan to tighten CF/CR this AM PLAN FOR INPATIENT GLYCEMIC CONTROL: * Basal insulin - no change * NPH SQ BIDM per the following scale: * 50 units for BSG < 110 * 55 units for BSG 110-180 * 60 units for BSG > 180 * Bolus insulin - tighten CF * NovoLog per scale ACHS or Q6hrs while NPO * Goal Range: Low 110 mg/dL - High 140 mg/dL * Correction Factor: 6 mg/dL/unit * Carb ratio: 1 unit / 4 PLAN FOR DISCHARGE: * Resume U-500 insulin pump upon patient discharge. If SNF and patient prefer, could discharge on basal-bolus just while at SNF, then transition back to U- 500 pump upon discharge from SNF.
[2019-11-28] MEDS: ACETAMINOPHEN 325 MG TAB PO PRN (16:30)
[2019-11-28] MEDS: OMEGA-3 (PURIFIED FISH OIL) 1 GM CAP PO SCH (20:32)
[2019-11-28] MEDS: ATORVASTATIN 10 MG TAB PO SCH (20:35)
[2019-11-29] MEDS: INSULIN ASPART 100 UNITS/ML 3 ML PEN SC SCH ×6 (00:45→20:29)
[2019-11-29] MEDS: AMPICILLIN/SULBACTAM SOD 3,000 MG in 0.9 % SODIUM CHLORIDE 100 ML IV SCH ×4 (00:45→17:18)
[2019-11-29] MEDS: LEVOTHYROXINE SODIUM 88 MCG TABLET PO SCH (05:32)
[2019-11-29] MEDS: ONDANSETRON INJ 2 MG/ML 2 ML VIAL IV PRN ×3 (08:26→22:49)
[2019-11-29] MEDS: UMECLIDINIUM BROMIDE 62.5MCG/BLISTER 7 PUFFS/INHALER INH SCH (08:27)
[2019-11-29] MEDS: GABAPENTIN 300 MG CAP PO SCH ×3 (08:27→20:29)
[2019-11-29] MEDS: FLUTICASONE/VILANTEROL 100/25MCG 14 PUFFS/INHALER INH SCH (08:27)
[2019-11-29] MEDS: DOCUSATE SODIUM/SENNA 50/8.6MG TAB PO SCH ×2 (08:28→20:29)
[2019-11-29] MEDS: PANTOprazole 40 MG TAB PO SCH (08:31)
[2019-11-29] MEDS: BUMETANIDE 1 MG TAB PO SCH ×2 (08:31→17:07)
[2019-11-29] MEDS: OXYCODONE HCL IR 5 MG TAB (IMMEDIATE RELEASE) PO SCH ×4 (08:32→20:28)
[2019-11-29] MEDS: INSULIN HUMAN NPH SC SCH ×2 (08:36→17:07)
[2019-11-29 08:40] LABS: Hematocrit (blood only) 30.2 % (37-47); Hemoglobin 9.2 g/dL (12.0-16.0); Mean Corpuscular Hgb Conc 30.5 g/dL (32-36); Mean Corpuscular Volume 92.1 fL (80-100); Mean Platelet Volume 8.9 fL (7.4-10.4); Platelet Count 306 K/uL (130-400); RDW Coefficient of Variation 15.8 % (11.5-14.5); RDW Standard Deviation 53.6 fL (36.4-46.3); Red Blood Count 3.28 M/uL (4.2-5.4); White Blood Count 12.12 K/uL (4.8-10.8)
[2019-11-29] MEDS: NYSTATIN POWDER 15GM BTL EXT SCH ×2 (09:18→20:27)
[2019-11-29] MEDS: BISMUTH SUBSALICYLATE SUSP PO PRN ×2 (10:02→18:31)
[2019-11-29] MEDS ORDERED: BACITRACIN OINT 15 GM TUBE EXT PRN (10:16)
[2019-11-29] MEDS: ACETAMINOPHEN 325 MG TAB PO PRN ×2 (11:01→15:33)
[2019-11-29] MEDS: MAGNESIUM OXIDE 400 MG TAB PO SCH (11:01)
[2019-11-29] MEDS: ZINC SULFATE 220 MG CAPSULE PO SCH (11:01)
[2019-11-29] MEDS: FERROUS SULFATE 325 MG TAB PO SCH (11:02)
--- NOTE | 2019-11-29 11:45 | Surgery Progress Note ---
Date of Service November 29, 2019 Assessment & Plan (1) Decubital ulcer: POD # 13 s/p debridement of sacral and buttock decubitus ulcers. Wound vac therapy - leukocytosis now down to 12K after reinitiation of IV Unasyn - wounds showing decline per wound nurse, examination today with fibrinous tissue and necrosis. Unable to place wound vac back on yesterday given wound decline. Plan: Per Dr. Arce, obtain another wound culture and apply bacitracin in the wounds to control local infection. Recommend Dr. Hathaway with wound care to evaluate patient again today to determine further management and possible chemical debridement. Dr. Arce to also discuss with Dr. Kay who performed original debridement. Continue IV Unasyn Patient will need to be extensively educated on compliance of rolling to stone driller helper in wound management and healing. Dr. Arce has seen patient, agrees with above. Subjective patient states she has abdominal pain today, just took milk of magnesia per wound nurse. wound nurse in room to stone driller helper in examination of wounds given patient refused yesterday. Per wound nurse, wounds declining, fibrinous and necrotic tissue present again, worse in last [address] wound vac back on yesterday. Dr. Hathaway to assess patient today at 11:30. Physical Exam Constitutional: + morbidly obese; not ill appearing Skin: Buttock: There is no significant cellulitis surrounding the 4 decubitus wounds. There is fibrinous tissue and necrotic tissue present in the three large wounds with some granulation tissue present. no induration or fluctuance around the wounds. Results & Data Vital Signs (Past 12 Hours) Vital Signs Temp Pulse Pulse Resp BP Pulse Ox 11/29/19 07:22 36.8 C 72 20 94/63 L 100 11/29/19 04:00 36.7 C 75 20 113/72 100 11/29/19 03:52 62 Laboratory Results 11/29/19 11/29/19 11/29/19 Range/Units 08:26 07:30 03:47 WBC 12.12 H (4.8-10.8) K/uL RBC 3.28 L (4.2-5.4) M/uL Hgb 9.2 L (12.0-16.0) g/dL Hct 30.2 L (37-47) % MCV 92.1 (80-100) fL MCH 28.0 (25-34) pg MCHC 30.5 L (32-36) g/dL RDW Std Deviation 53.6 H (36.4-46.3) fL RDW Coeff of Tamra 15.8 H (11.5-14.5) % Plt Count 306 (130-400) K/uL MPV 8.9 (7.4-10.4) fL POC Glucose 164 H 179 H (70-99) mg/dl 11/29/19 11/28/19 11/28/19 Range/Units 00:03 20:33 16:33 WBC (4.8-10.8) K/uL RBC (4.2-5.4) M/uL Hgb (12.0-16.0) g/dL Hct (37-47) % MCV (80-100) fL MCH (25-34) pg MCHC (32-36) g/dL RDW Std Deviation (36.4-46.3) fL RDW Coeff of Tamra (11.5-14.5) % Plt Count (130-400) K/uL MPV (7.4-10.4) fL POC Glucose 160 H 204 H 177 H (70-99) mg/dl 11/28/19 Range/Units 11:39 WBC (4.8-10.8) K/uL RBC (4.2-5.4) M/uL Hgb (12.0-16.0) g/dL Hct (37-47) % MCV (80-100) fL MCH (25-34) pg MCHC (32-36) g/dL RDW Std Deviation (36.4-46.3) fL RDW Coeff of Tamra (11.5-14.5) % Plt Count (130-400) K/uL MPV (7.4-10.4) fL POC Glucose 230 H (70-99) mg/dl
--- NOTE | 2019-11-29 12:59 | Hospitalist Progress Note ---
Date of Service November 29, 2019 Assessment & Plan (1) Sepsis: POA from buttocks ulcer/cellulitis -sepsis resolved but white count increasing and concern on wound deteriorating --> resumed IV unasyn 11/27; ongoing care of wound otherwise per wound clinic and surgery teams (input of both greatly appreciated) (2) Cellulitis: Pressure ulcer of right & left buttock, extensive one of the largest Susannah have seen in my practice, left heel, and left lower lateral leg, both are stage 2-3 -now back on unasyn (3) Chronic pain syndrome: continue home meds of gabapentin and oxycodone -pain seems reasonably well controlled -add IV morphine prior to rolling for wound care/dressing changes/etc (4) Chronic indwelling Garcia catheter: Continues and chronic, related to bed bound status Hx of recurrent UTI noted Takes nitrofurantoin for UTI proph Holding during current abx (5) Hypertension: continue current regimen and follow BP and occasional BMP - blood pressures show reasonable control overall given the situation. (6) Depression: continue supportive care (7) Iron deficiency: iron as per home regimen (8) Obesity hypoventilation syndrome: Noted - continue supportive care - doing fairly well, no significant respiratory symptoms at this time (9) Anemia: was as low as 6.5 - now improved post transfusion - this is anemia of chronic disease stable in the 8-9 gm range, continue to follow periodically (10) DM II (diabetes mellitus, type II), controlled: continue insulins A1c 6.5 sugars overall acceptable - continue insulin management and titration (11) Decubital ulcer: Status post surgical debridement by Dr. Kay on November 15. ongoing local wound care --> dressing changes//vac (12) Deep tissue injury: Patient with deep tissue injuries of bilateral legs. ongoing local wound care as well (13) DVT prophylaxis: SCDs, pt bedbound at baseline (14) Discharge planning issues: SNF most viable option for ongoing care of wound - unfortunately [facility] beds at [facility]; but home seems much riskier option given her ulcer/depth/etc - would prefer to transition to snf once able Admission and Anticipated Discharge Date Admission Date: November 10, 2019 Subjective nursing notes concern on wound getting worse - as does surgery. pt has no wound related complaints or pain - does worry about pain in her legs when getting rolled for wound care later but knows that she has to. otherwise her only real complaint is constipation Review of Systems Review of Systems: All systems reviewed & are unremarkable except as noted in HPI & below Physical Exam Physical Exam: gen aao pleasant sl fatigued but nad. heent nc at mmm kennedi thing unlabored no accessory muscles good effort skin no rashes no pallor or icterus neuro no focal deficits. wound to be examined by dr rodrigues shortly after i see pt, therefore will defer to him on this Results & Data Results & Data ([facility]) Vital Signs (Past 12 Hours) Vital Signs Temp Pulse Pulse Resp BP Pulse Ox 11/29/19 11:55 97.3 F L 106 H 18 161/78 H 91 11/29/19 07:22 98.2 F 72 20 94/63 L 100 11/29/19 04:00 98.1 F 75 20 113/72 100 11/29/19 03:52 62 PG Care Time/CCT Total # of Minutes Spent Total Time Spent with Patient: Total time spent is greater than 50% in coordination of care (as documented) at patient's floor/unit and/or counseling patient: Coding Level of Care Code 25241 Subseq Hosp Care Lvl 3 Diagnoses Sepsis A41.9 Cellulitis L03.90 Site of cellulitis: unspecified site Chronic pain syndrome G89.4 Chronic indwelling Garcia catheter Z96.0 Hypertension I10 Hypertension type: essential hypertension Depression F32.9 Iron deficiency E61.1 Obesity hypoventilation syndrome E66.2 Anemia D64.9 DM II (diabetes mellitus, type II), controlled E11.29; Z79.4 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: with middle or intermediate school principal use Diabetes mellitus complication status: with kidney complications Diabetes mellitus complication detail: with other kidney complication Decubital ulcer L89.90 Deep tissue injury T14.8XXA DVT prophylaxis Z29.9 Discharge planning issues Z02.9 (1) Cellulitis Site of cellulitis: unspecified site Qualified Code(s): L03.90 - Cellulitis, unspecified (2) Hypertension Hypertension type: essential hypertension Qualified Code(s): I10 - Essential (primary) hypertension (3) DM II (diabetes mellitus, type II), controlled 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
--- NOTE | 2019-11-29 13:41 | Pharmacy Report ---
Pharmacy Glycemic Short Note 2 - Date of Service November 29, 2019 - Glycemic Short BSG Results (Last 24 hours): 11/28/19 11/28/19 11/29/19 16:33 20:33 00:03 POC Glucose 177 H 204 H 160 H 11/29/19 11/29/19 11/29/19 03:47 07:30 11:30 POC Glucose 179 H 164 H 186 H OUTPATIENT ANTIDIABETIC REGIMEN: * U500 insulin pump (upwards of 350 units/day) * A1c = 6.5% on 11/11/2019 INPATIENT GLYCEMIC REGIMEN AND CAUSES OF INSULIN RESISTANCE: ASSESSMENT: 11/28: * Ms. Ayoub received 170 units of insulin yesterday and required 11 units of this overnight * BSGs slowly improving but still above goal * Est basal ~120 units -> will adjust Lantus scale * Postprandials elevated -> will tighten CR 11/27: * Patient received total of 182 units of insulin yesterday, of which 115 were NPH * Fasting BSG much improved at 159 mg/dL - however did require additional insulin overnight / continue same scale * Plan to tighten CF today 11/26: * Patient required total of 142 units of insulin yesterday, of which 100 were NPH * Fasting BSG continues to rise this morning, despite dosage increase yesterday - plan to adjust NPH scale slightly * Plan to tighten CF/CR this AM PLAN FOR INPATIENT GLYCEMIC CONTROL: * Basal insulin - increase dose to aim for basal of 120 units/day * NPH SQ BIDM per the following scale: * 55 units for BSG < 110 * 60 units for BSG 110-180 * 65 units for BSG > 180 * Bolus insulin - tighten CR * NovoLog per scale ACHS or Q6hrs while NPO * Goal Range: Low 110 mg/dL - High 140 mg/dL * Correction Factor: 6 mg/dL/unit * Carb ratio: 1 unit / 3 PLAN FOR DISCHARGE: * Resume U-500 insulin pump upon patient discharge. If SNF and patient prefer, could discharge on basal-bolus just while at SNF, then transition back to U- 500 pump upon discharge from SNF.
--- NOTE | 2019-11-29 14:03 | Wound Progress Note ---
Date of Service November 29, 2019 Assessment & Plan (1) Decubital ulcer: Post op #[address] Kay on November 15. I will apply wound VAC to the necrotic fibrinous tissue. Wound again is oozing. We will dress wound with Aquasol AG which will hopefully have mechanical debridement in fact and apply a Tegaderm to prevent wound from drying out. We will continue to monitor. Patient would likely benefit from a surgical debridement however she is resistant to this idea. If she were agreeable to a surgical debridement would consider placing an irrigating wound VAC while patient is in the OR. Again it was discussed the importance and patient compliance in terms of frequent r otations. An irrigating wound VAC will be of no benefit as patient continues to lay flat on her back and not move. Continue offloading through [id number] mattress. Thank you for allowing me to participate in the care of this patient. Please do not hesitate to call with any questions. (2) Deep tissue injury: Continue to dress leg wounds with Aquacel and OPTi foam. Carroll right heel with Betadine. Subjective Patient seen laying in bed. Patient is on [id number] mattress. She is complaining of pain and not feeling well today. Review of Systems Review of Systems: All systems reviewed & are unremarkable except as noted in HPI & below Physical Exam Constitutional: + morbidly obese Skin: Wound measuring as recorded in the nursing documentation. Sacral wounds are declining. There is fibrinous and necrotic tissue present which is worsened over the last 2 days. Wound VAC remains off. Results & Data Vital Signs (Past 12 Hours) Vital Signs Temp Pulse Pulse Resp BP Pulse Ox 11/29/19 11:55 36.3 C L 106 H 18 161/78 H 91 11/29/19 07:22 36.8 C 72 20 94/63 L 100 11/29/19 04:00 36.7 C 75 20 113/72 100 11/29/19 03:52 62 PG Care Time/CCT Total # of Minutes Spent Total Time Spent with Patient: Total time spent is greater than 50% in coordination of care (as documented) at patient's floor/unit and/or counseling patient: Coding Level of Care Code 90458 Subseq Hosp Care Lvl 2 Diagnoses Decubital ulcer L89.90 Deep tissue injury T14.8XXA
[2019-11-29] MEDS: ATORVASTATIN 10 MG TAB PO SCH (20:29)
[2019-11-29] MEDS: OMEGA-3 (PURIFIED FISH OIL) 1 GM CAP PO SCH (20:29)
[2019-11-30] MEDS: AMPICILLIN/SULBACTAM SOD 3,000 MG in 0.9 % SODIUM CHLORIDE 100 ML IV SCH ×5 (00:15→23:58)
[2019-11-30] MEDS: BISMUTH SUBSALICYLATE SUSP PO PRN (01:23)
[2019-11-30] MEDS: SIMETHICONE 80 MG CHEW PO PRN (03:33)
[2019-11-30] MEDS: LEVOTHYROXINE SODIUM 88 MCG TABLET PO SCH (06:23)
[2019-11-30] MEDS: OXYCODONE HCL IR 5 MG TAB (IMMEDIATE RELEASE) PO SCH ×4 (08:15→20:48)
[2019-11-30] MEDS: FLUTICASONE/VILANTEROL 100/25MCG 14 PUFFS/INHALER INH SCH (08:15)
[2019-11-30] MEDS: DOCUSATE SODIUM/SENNA 50/8.6MG TAB PO SCH ×2 (08:16→20:48)
[2019-11-30] MEDS: INSULIN HUMAN NPH SC SCH ×2 (08:16→17:24)
[2019-11-30] MEDS: PANTOprazole 40 MG TAB PO SCH (08:16)
[2019-11-30] MEDS: INSULIN ASPART 100 UNITS/ML 3 ML PEN SC SCH ×4 (08:17→20:48)
[2019-11-30] MEDS: GABAPENTIN 300 MG CAP PO SCH ×3 (08:18→20:48)
[2019-11-30] MEDS: BUMETANIDE 1 MG TAB PO SCH ×2 (08:18→17:21)
[2019-11-30] MEDS: UMECLIDINIUM BROMIDE 62.5MCG/BLISTER 7 PUFFS/INHALER INH SCH (08:19)
[2019-11-30] MEDS: NYSTATIN POWDER 15GM BTL EXT SCH ×2 (08:19→20:49)
[2019-11-30 08:30] LABS: Hematocrit (blood only) 31.8 % (37-47); Hemoglobin 9.5 g/dL (12.0-16.0); Mean Corpuscular Hemoglobin 27.5 pg (25-34); Mean Corpuscular Hgb Conc 29.9 g/dL (32-36); Mean Corpuscular Volume 91.9 fL (80-100); Mean Platelet Volume 9.3 fL (7.4-10.4); Platelet Count 359 K/uL (130-400); RDW Coefficient of Variation 15.6 % (11.5-14.5); RDW Standard Deviation 52.4 fL (36.4-46.3); Red Blood Count 3.46 M/uL (4.2-5.4); White Blood Count 14.41 K/uL (4.8-10.8)
[2019-11-30 09:01] LABS: BUN Creatinine Ratio 22.9 (10-20); Calcium 10.3 mg/dl (8.5-10.1); Creatinine Clr Calc Pharmacy 99.6 ml/min; Est GFR (Non-African American) 69.9
[2019-11-30] MEDS: ONDANSETRON INJ 2 MG/ML 2 ML VIAL IV PRN ×2 (09:47→16:51)
[2019-11-30] MEDS: MAGNESIUM OXIDE 400 MG TAB PO SCH (12:04)
[2019-11-30] MEDS: FERROUS SULFATE 325 MG TAB PO SCH (12:04)
[2019-11-30] MEDS: ZINC SULFATE 220 MG CAPSULE PO SCH (12:04)
--- NOTE | 2019-11-30 12:25 | Surgery Progress Note ---
Date of Service November 30, 2019 Assessment & Plan (1) Decubital ulcer: POD # 14 s/p debridement of sacral and buttock decubitus ulcers. Wound vac therapy initially. - leukocytosis now up to 14K after reinitiation of IV Unasyn (12K yesterday), afebrile however. No surrounding cellulitis on yesterday examination - wounds showing decline per wound nurse, examination 11/29/19 wound with fibrinous tissue and necrosis. - Noncompliance with rolling to tube machine operator helper in wound healing/care - Patient does not want another surgical debridement. Wound cultures results as above Plan: Wound care as per wound doc/wound care team. Patient does not want repeat surgical debridement. Continue IV abx, follow wbc. Await sensitivities of the wound culture. If wound continues to decline may need to consider plastic surgery consult for muscle flaps however patient compliance is an issue. Continue medical management Dr. Arce evaluated patient with me and Dr. Kay also saw patient this morning. Subjective feeling nauseous this am chronic leg pain states wound vac was not placed yesterday and is unsure if they are going to replace Does not want turned this morning as she was turned multiple times yesterday and just wants to rest Dr. Kay also saw patient today. No nursing available to help rotate patient. Patients states she does not want to go through another surgical debridement again. Physical Exam Constitutional: + morbidly obese; no acute distress Respiratory: normal respiratory effort; no respiratory distress Psychiatric: Orientation: alert and oriented x 3 Results & Data Vital Signs (Past 12 Hours) Vital Signs Temp Pulse Pulse Resp BP Pulse Ox 11/30/19 12:00 37.0 C 91 H 18 133/84 100 11/30/19 08:40 96 H 11/30/19 08:05 36.7 C 99 H 20 151/71 H 99 11/30/19 04:01 36.9 C 92 H 18 129/54 L 99 11/30/19 00:34 95 H Laboratory Results 11/30/19 11/30/19 11/30/19 Range/Units 11:47 08:01 08:01 WBC 14.41 H (4.8-10.8) K/uL RBC 3.46 L (4.2-5.4) M/uL Hgb 9.5 L (12.0-16.0) g/dL Hct 31.8 L (37-47) % MCV 91.9 (80-100) fL MCH 27.5 (25-34) pg MCHC 29.9 L (32-36) g/dL RDW Std Deviation 52.4 H (36.4-46.3) fL RDW Coeff of Tamra 15.6 H (11.5-14.5) % Plt Count 359 (130-400) K/uL MPV 9.3 (7.4-10.4) fL Sodium 134 L (136-145) mmol/L Potassium 4.0 (3.5-5.1) mmol/L Chloride 95 L (98-107) mmol/L Carbon Dioxide 31 (21-32) mmol/L Anion Gap 8.0 (3-11) BUN 20 H (7-18) mg/dl Creatinine 0.88 (0.6-1.2) mg/dl Est Cr Clr Drug Dosing 99.6 ml/min Est GFR ( Amer) 81.0 Est GFR (Non-Af Amer) 69.9 BUN/Creatinine Ratio 22.9 H (10-20) Glucose 223 H (70-99) mg/dl POC Glucose 152 H (70-99) mg/dl Calcium 10.3 H (8.5-10.1) mg/dl 11/30/19 11/29/19 11/29/19 Range/Units 07:45 20:01 16:41 WBC (4.8-10.8) K/uL RBC (4.2-5.4) M/uL Hgb (12.0-16.0) g/dL Hct (37-47) % MCV (80-100) fL MCH (25-34) pg MCHC (32-36) g/dL RDW Std Deviation (36.4-46.3) fL RDW Coeff of Tamra (11.5-14.5) % Plt Count (130-400) K/uL MPV (7.4-10.4) fL Sodium (136-145) mmol/L Potassium (3.5-5.1) mmol/L Chloride (98-107) mmol/L Carbon Dioxide (21-32) mmol/L Anion Gap (3-11) BUN (7-18) mg/dl Creatinine (0.6-1.2) mg/dl Est Cr Clr Drug Dosing ml/min Est GFR ( Amer) Est GFR (Non-Af Amer) BUN/Creatinine Ratio (10-20) Glucose (70-99) mg/dl POC Glucose 227 H 174 H 169 H (70-99) mg/dl Calcium (8.5-10.1) mg/dl Microbiology 11/29/19 09:50 Gram Stain - Final Buttock,Right Deep Wound Culture - Preliminary Gram negative bacilli Gram negative bacilli#2 Gram negative bacilli#3
--- NOTE | 2019-11-30 14:10 | Pharmacy Report ---
Pharmacy Glycemic Short Note 2 - Date of Service November 30, 2019 - Glycemic Short BSG Results (Last 24 hours): 11/29/19 11/29/19 11/30/19 16:41 20:01 07:45 Glucose POC Glucose 169 H 174 H 227 H 11/30/19 11/30/19 08:01 11:47 Glucose 223 H POC Glucose 152 H OUTPATIENT ANTIDIABETIC REGIMEN: * U500 insulin pump (upwards of 350 units/day) * A1c = 6.5% on 11/11/2019 INPATIENT GLYCEMIC REGIMEN AND CAUSES OF INSULIN RESISTANCE: ASSESSMENT: 11/29: * Joellen received 187 units of insulin yesterday * Fasting BSG was even higher today, which is not explainable. Pre-lunch BSG much improved without many significant changes. * Patient continues on Unasyn for decubitus ulcers * Planning for SNF once bed available 11/28: * Ms. Ayoub received 170 units of insulin yesterday and required 11 units of th is overnight * BSGs slowly improving but still above goal * Est basal ~120 units -> will adjust Lantus scale * Postprandials elevated -> will tighten CR 11/27: * Patient received total of 182 units of insulin yesterday, of which 115 were NPH * Fasting BSG much improved at 159 mg/dL - however did require additional insulin overnight / continue same scale * Plan to tighten CF today 11/26: * Patient required total of 142 units of insulin yesterday, of which 100 were NPH * Fasting BSG continues to rise this morning, despite dosage increase yesterday - plan to adjust NPH scale slightly * Plan to tighten CF/CR this AM PLAN FOR INPATIENT GLYCEMIC CONTROL: * Basal insulin - no change * NPH SQ BIDM per the following scale: * 55 units for BSG < 110 * 60 units for BSG 110-180 * 65 units for BSG > 180 * Bolus insulin - tighten CF slightly to provide more coverage when BSGs are elevated * NovoLog per scale ACHS or Q6hrs while NPO * Goal Range: Low 110 mg/dL - High 140 mg/dL * Correction Factor: 5 mg/dL/unit * Carb ratio: 1 unit / 3 PLAN FOR DISCHARGE: * Resume U-500 insulin pump upon patient discharge. If SNF and patient prefer, could discharge on basal-bolus just while at SNF, then transition back to U- 500 pump upon discharge from SNF.
[2019-11-30] MEDS: ACETAMINOPHEN 325 MG TAB PO PRN ×2 (15:29→19:26)
[2019-11-30] MEDS: MAGNESIUM HYDROXIDE SUSP 30 ML UDC PO PRN (16:18)
[2019-11-30] MEDS ORDERED: POLYETHYLENE (MIRALAX) 17 GM PACK PO ONE (16:36)
--- NOTE | 2019-11-30 16:43 | Hospitalist Progress Note ---
Date of Service November 30, 2019 Assessment & Plan (1) Sepsis: from cellulitis from sacral wound. now improved. (2) Cellulitis: around buttocks ulcer. continue unasyn, follow. appears ipmroved per surgery evaluation - but still certainly high risk for further infection with open wound (3) Chronic pain syndrome: home meds, added IV morphine for before rolling - seems that the main reason she does not want to roll is leg pain (4) Hypertension: BP acceptable continue current and follow (5) Obesity hypoventilation syndrome: noted - ongoing supportive care (6) DM II (diabetes mellitus, type II), controlled: sl high this AM but otherwise reasonable (7) Weakness: for SNF after stable for discharge (8) Depression: supportive care, empathy (9) Discharge planning issues: SNF once able (10) DVT prophylaxis: chronically bed bound; SCDs (11) Hypercalcemia: very mild, follow Admission and Anticipated Discharge Date Admission Date: November 10, 2019 Subjective feeling pain in butt - when discussing possibly pressure from ulcer she notes that it is not - it's that she is having trouble w hard BM. otherwise notes main trouble is pain in legs when people try to roll her. Review of Systems Review of Systems: All systems reviewed & are unremarkable except as noted in HPI & below Physical Exam Physical Exam: gen aao pleasant nad heent nc at mmm breathing unlabored no accessory muscles good effort skin no rashes no pallor or icterus neuro no focal deficits Results & Data Results & Data ([facility]) Vital Signs (Past 12 Hours) Vital Signs Temp Pulse Pulse Resp BP Pulse Ox 11/30/19 16:24 98.4 F 84 20 138/87 100 11/30/19 15:05 87 11/30/19 12:00 98.6 F 91 H 18 133/84 100 11/30/19 08:40 96 H 11/30/19 08:05 98.1 F 99 H 20 151/71 H 99 PG Care Time/CCT Total # of Minutes Spent Total Time Spent with Patient: Total time spent is greater than 50% in coordination of care (as documented) at patient's floor/unit and/or counseling patient: Coding Level of Care Code 93197 Subseq Hosp Care Lvl 3 Diagnoses Sepsis A41.9 Cellulitis L03.90 Site of cellulitis: unspecified site Chronic pain syndrome G89.4 Hypertension I10 Hypertension type: essential hypertension Obesity hypoventilation syndrome E66.2 DM II (diabetes mellitus, type II), controlled E11.29; Z79.4 Diabetes mellitus prison insulin use: with prison use Diabetes mellitus complication status: with kidney complications Diabetes mellitus complication detail: with other kidney complication Weakness R53.1 Depression F32.9 Discharge planning issues Z02.9 DVT prophylaxis Z29.9 Hypercalcemia E83.52 (1) Cellulitis Site of cellulitis: unspecified site Qualified Code(s): L03.90 - Cellulitis, unspecified (2) Hypertension Hypertension type: essential hypertension Qualified Code(s): I10 - Essential (primary) hypertension (3) DM II (diabetes mellitus, type II), controlled 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
[2019-11-30] MEDS: OMEGA-3 (PURIFIED FISH OIL) 1 GM CAP PO SCH (20:48)
[2019-11-30] MEDS: ATORVASTATIN 10 MG TAB PO SCH (20:48)
[2019-12-01] MEDS: LEVOTHYROXINE SODIUM 88 MCG TABLET PO SCH (06:14)
[2019-12-01] MEDS: MAGNESIUM HYDROXIDE SUSP 30 ML UDC PO PRN ×2 (06:14→13:41)
[2019-12-01] MEDS: AMPICILLIN/SULBACTAM SOD 3,000 MG in 0.9 % SODIUM CHLORIDE 100 ML IV SCH ×2 (06:14→12:28)
[2019-12-01] MEDS: OXYCODONE HCL IR 5 MG TAB (IMMEDIATE RELEASE) PO SCH ×4 (07:50→20:53)
[2019-12-01] MEDS: DOCUSATE SODIUM/SENNA 50/8.6MG TAB PO SCH ×2 (07:52→20:53)
[2019-12-01] MEDS: PANTOprazole 40 MG TAB PO SCH (07:52)
[2019-12-01] MEDS: GABAPENTIN 300 MG CAP PO SCH ×3 (07:54→20:54)
[2019-12-01] MEDS: BUMETANIDE 1 MG TAB PO SCH ×2 (07:54→17:05)
[2019-12-01] MEDS: FLUTICASONE/VILANTEROL 100/25MCG 14 PUFFS/INHALER INH SCH (07:55)
[2019-12-01] MEDS: UMECLIDINIUM BROMIDE 62.5MCG/BLISTER 7 PUFFS/INHALER INH SCH (07:55)
[2019-12-01] MEDS: INSULIN ASPART 100 UNITS/ML 3 ML PEN SC SCH ×4 (08:32→21:06)
[2019-12-01] MEDS: INSULIN HUMAN NPH SC SCH ×2 (08:33→17:07)
[2019-12-01] MEDS: ONDANSETRON INJ 2 MG/ML 2 ML VIAL IV PRN ×3 (08:37→21:01)
--- NOTE | 2019-12-01 10:09 | Hospitalist Progress Note ---
Date of Service December 01, 2019 Assessment & Plan (1) Sepsis: from cellulitis from sacral wound. has improved. (2) Cellulitis: around buttocks ulcer. continue IV unasyn, follow. appears improved per surgery evaluation - but still certainly high risk for further infection with open wound (3) Chronic pain syndrome: home meds, added IV morphine for before rolling - seems that the main reason she does not want to roll is leg pain - asked nursing to remind her she can have this, hopefully will help more with rolling and repositioning. (4) Hypertension: BP stays acceptable continue current and follow (5) Obesity hypoventilation syndrome: noted - ongoing supportive care (6) DM II (diabetes mellitus, type II), controlled: continue to follow, continue to titrate insulin (7) Weakness: for SNF after stable for discharge (8) Depression: supportive care, empathy (9) Discharge planning issues: SNF once able (10) DVT prophylaxis: chronically bed bound; SCDs (11) Hypercalcemia: very mild, follow Admission and Anticipated Discharge Date Admission Date: November 10, 2019 Subjective sleeping - appearing comfortable now, in d/w nursing apparently still trouble with her wanting to be turned/repositioned. apparently didn't ask for prn morphine either. Physical Exam Physical Exam: gen asleep but no distress. heent nc at mmm breathing unlabored no accessory muscles good effort skin no pallor neuro no resting focal deficits noted Results & Data Results & Data ([facility]) Vital Signs (Past 12 Hours) Vital Signs Temp Pulse Pulse Resp BP Pulse Ox 12/01/19 07:26 98.1 F 94 H 20 164/71 H 100 12/01/19 07:17 89 12/01/19 03:06 98.6 F 75 16 119/75 100 11/30/19 23:55 72 11/30/19 23:41 99.1 F 75 18 112/66 100 PG Care Time/CCT Total # of Minutes Spent Total Time Spent with Patient: Total time spent is greater than 50% in coordination of care (as documented) at patient's floor/unit and/or counseling patient: Coding Level of Care Code 09750 Subseq Hosp Care Lvl 2 Diagnoses Sepsis A41.9 Cellulitis L03.90 Site of cellulitis: unspecified site Chronic pain syndrome G89.4 Hypertension I10 Hypertension type: essential hypertension Obesity hypoventilation syndrome E66.2 DM II (diabetes mellitus, type II), controlled E11.29; Z79.4 Diabetes mellitus complication detail: with other kidney complication Diabetes mellitus complication status: with kidney complications Diabetes mellitus nursing home insulin use: with nursing home use Weakness R53.1 Depression F32.9 Discharge planning issues Z02.9 DVT prophylaxis Z29.9 Hypercalcemia E83.52 (1) Cellulitis Site of cellulitis: unspecified site Qualified Code(s): L03.90 - Cellulitis, unspecified (2) DM II (diabetes mellitus, type II), controlled Diabetes mellitus complication detail: with other kidney complication Diabetes mellitus complication status: with kidney complications Diabetes mellitus nursing home insulin use: with nursing home use Qualified Code(s): E11.29 - Type 2 diabetes mellitus with other diabetic kidney complication; Z79.4 - detention (current) use of insulin (3) Hypertension Hypertension type: essential hypertension Qualified Code(s): I10 - Essential (primary) hypertension
[2019-12-01] MEDS: NYSTATIN POWDER 15GM BTL EXT SCH ×2 (10:23→20:54)
[2019-12-01] MEDS: MAGNESIUM OXIDE 400 MG TAB PO SCH (12:25)
[2019-12-01] MEDS: FERROUS SULFATE 325 MG TAB PO SCH (12:25)
[2019-12-01] MEDS: ZINC SULFATE 220 MG CAPSULE PO SCH (12:25)
[2019-12-01] MEDS: POLYETHYLENE (MIRALAX) 17 GM PACK PO PRN ×2 (13:41→17:49)
[2019-12-01] MEDS ORDERED: IMIPENEM/CILASTATIN CONSULT ACTIVE PRN (14:55)
[2019-12-01] MEDS: MoRPHine SULFATE 2 MG/ML CARP IV PRN ×2 (15:37→19:34)
[2019-12-01] MEDS: BISMUTH SUBSALICYLATE SUSP PO PRN (16:57)
[2019-12-01] MEDS: IMIPENEM/CILASTATIN SODIUM 500 MG in DEXTROSE 5% 100 ML IV SCH ×2 (17:01→22:25)
[2019-12-01] MEDS: ACETAMINOPHEN 325 MG TAB PO PRN (17:53)
[2019-12-01] MEDS: ATORVASTATIN 10 MG TAB PO SCH (20:53)
[2019-12-01] MEDS: OMEGA-3 (PURIFIED FISH OIL) 1 GM CAP PO SCH (20:54)
[2019-12-02] MEDS: MoRPHine SULFATE 2 MG/ML CARP IV PRN ×7 (01:32→22:11)
[2019-12-02] MEDS: IMIPENEM/CILASTATIN SODIUM 500 MG in DEXTROSE 5% 100 ML IV SCH ×4 (03:45→22:44)
[2019-12-02] MEDS: LEVOTHYROXINE SODIUM 88 MCG TABLET PO SCH (06:05)
--- NOTE | 2019-12-02 08:26 | Pharmacy Report ---
Pharmacy Glycemic Short Note 2 - Date of Service December 02, 2019 - Glycemic Short BSG Results (Last 24 hours): 12/01/19 12/01/19 12/01/19 11:52 16:46 19:46 POC Glucose 154 H 165 H 211 H 12/02/19 08:04 POC Glucose 169 H OUTPATIENT ANTIDIABETIC REGIMEN: * U500 insulin pump (upwards of 350 units/day) * A1c = 6.5% on 11/11/2019 INPATIENT GLYCEMIC REGIMEN AND CAUSES OF INSULIN RESISTANCE: ASSESSMENT: 12/01: * Patient received 181 units of insulin yesterday, blood sugars 154-211mg/dl. No changes needed in insulin regimen. * Patient changed from Unasyn to Primaxin for decubitus ulcers, resistant to un asyn. * Planning for SNF once bed available 11/29: * Joellen received 187 units of insulin yesterday * Fasting BSG was even higher today, which is not explainable. Pre-lunch BSG much improved without many significant changes. * Patient continues on Unasyn for decubitus ulcers * Planning for SNF once bed available 11/28: * Ms. Ayoub received 170 units of insulin yesterday and required 11 units of this overnight * BSGs slowly improving but still above goal * Est basal ~120 units -> will adjust Lantus scale * Postprandials elevated -> will tighten CR 11/27: * Patient received total of 182 units of insulin yesterday, of which 115 were NPH * Fasting BSG much improved at 159 mg/dL - however did require additional insulin overnight / continue same scale * Plan to tighten CF today 11/26: * Patient required total of 142 units of insulin yesterday, of which 100 were NPH * Fasting BSG continues to rise this morning, despite dosage increase yesterday - plan to adjust NPH scale slightly * Plan to tighten CF/CR this AM PLAN FOR INPATIENT GLYCEMIC CONTROL: * Basal insulin * NPH SQ BIDM per the following scale: * 55 units for BSG < 110 * 60 units for BSG 110-180 * 65 units for BSG > 180 * Bolus insulin * NovoLog per scale ACHS or Q6hrs while NPO * Goal Range: Low 110 mg/dL - High 140 mg/dL * Correction Factor: 5 mg/dL/unit * Carb ratio: 1 unit / 3 grams CHO consumed PLAN FOR DISCHARGE: * Resume U-500 insulin pump upon patient discharge. If SNF and patient prefer, could discharge on basal-bolus just while at SNF, then transition back to U- 500 pump upon discharge from SNF.
[2019-12-02] MEDS: OXYCODONE HCL IR 5 MG TAB (IMMEDIATE RELEASE) PO SCH ×4 (08:27→21:13)
[2019-12-02] MEDS: FLUTICASONE/VILANTEROL 100/25MCG 14 PUFFS/INHALER INH SCH (08:28)
[2019-12-02] MEDS: UMECLIDINIUM BROMIDE 62.5MCG/BLISTER 7 PUFFS/INHALER INH SCH (08:28)
[2019-12-02] MEDS: DOCUSATE SODIUM/SENNA 50/8.6MG TAB PO SCH ×2 (08:28→21:13)
[2019-12-02] MEDS: INSULIN HUMAN NPH SC SCH ×2 (08:29→17:19)
[2019-12-02] MEDS: BUMETANIDE 1 MG TAB PO SCH ×2 (08:29→17:12)
[2019-12-02] MEDS: INSULIN ASPART 100 UNITS/ML 3 ML PEN SC SCH ×4 (08:32→21:15)
[2019-12-02] MEDS: PANTOprazole 40 MG TAB PO SCH (08:33)
[2019-12-02] MEDS: NYSTATIN POWDER 15GM BTL EXT SCH ×2 (08:35→20:06)
[2019-12-02] MEDS: GABAPENTIN 300 MG CAP PO SCH ×3 (08:38→21:13)
[2019-12-02] MEDS: ONDANSETRON INJ 2 MG/ML 2 ML VIAL IV PRN ×3 (08:38→22:11)
[2019-12-02] MEDS: POLYETHYLENE (MIRALAX) 17 GM PACK PO PRN (10:35)
[2019-12-02] MEDS: ZINC SULFATE 220 MG CAPSULE PO SCH (13:15)
[2019-12-02] MEDS: MAGNESIUM OXIDE 400 MG TAB PO SCH (13:15)
[2019-12-02] MEDS: FERROUS SULFATE 325 MG TAB PO SCH (13:15)
[2019-12-02] MEDS: BISMUTH SUBSALICYLATE SUSP PO PRN (13:17)
--- NOTE | 2019-12-02 17:39 | Hospitalist Progress Note ---
Date of Service December 02, 2019 Assessment & Plan (1) Sepsis: from cellulitis from sacral wound. has improved. (2) Cellulitis: around buttocks ulcer. continue IV primaxin due to culture results, follow. needs to offload as much as possible - difficult with her leg pain - but added morphine prn for turning (3) Chronic pain syndrome: home meds, added IV morphine for before rolling - continue and continue to follow pain (4) Hypertension: BP is acceptable continue current and follow (5) Obesity hypoventilation syndrome: noted - ongoing supportive care (6) DM II (diabetes mellitus, type II), controlled: continue to follow, continue to titrate insulin per pharmacy (7) Weakness: for SNF after stable for discharge, check SARS-CoV2 as she will need a negative prior to SNF placement (8) Depression: supportive care, empathy (9) Discharge planning issues: SNF once able (10) DVT prophylaxis: chronically bed bound; SCDs (11) Hypercalcemia: very mild, follow Admission and Anticipated Discharge Date Admission Date: November 10, 2019 Subjective pt seen multiple times - sleeping every time. d/w nursing -she did allow turning when she had BM. later barboza changed - was leaking Physical Exam Physical Exam: sleeping nad heent nc at mmm breathing unlabored at rest no respiratory distress skin no rashes no pallor or icterus Results & Data Results & [facility] ([facility]) Vital Signs (Past 12 Hours) Vital Signs Temp Pulse Pulse Resp BP Pulse Ox 12/02/19 15:57 84 12/02/19 15:17 98.2 F 82 20 125/63 100 12/02/19 11:57 98.1 F 80 18 136/54 L 97 12/02/19 08:14 98.4 F 81 18 124/64 97 12/02/19 07:22 74 PG Care Time/CCT Total # of Minutes Spent Total Time Spent with Patient: Total time spent is greater than 50% in coordination of care (as documented) at patient's floor/unit and/or counseling patient: Coding Level of Care Code 44004 Subseq Hosp Care Lvl 2 Diagnoses Sepsis A41.9 Cellulitis L03.90 Site of cellulitis: unspecified site Chronic pain syndrome G89.4 Hypertension I10 Hypertension type: essential hypertension Obesity hypoventilation syndrome E66.2 DM II (diabetes mellitus, type II), controlled E11.29; Z79.4 Diabetes mellitus penitentiary insulin use: with continuous churn buttermaker use Diabetes mellitus complication status: with kidney complications Diabetes mellitus complication detail: with other kidney complication Weakness R53.1 Depression F32.9 Discharge planning issues Z02.9 DVT prophylaxis Z29.9 Hypercalcemia E83.52 (1) Cellulitis Site of cellulitis: unspecified site Qualified Code(s): L03.90 - Cellulitis, unspecified (2) Hypertension Hypertension type: essential hypertension Qualified Code(s): I10 - Essential (primary) hypertension (3) DM II (diabetes mellitus, type II), controlled Diabetes mellitus continuous churn buttermaker insulin use: with continuous churn buttermaker use Diabetes mellitus complication status: with kidney complications Diabetes mellitus complication detail: with other kidney complication Qualified Code(s): E11.29 - Type 2 diabetes mellitus with other diabetic kidney complication; Z79.4 - correction (current) use of insulin
[2019-12-02] MEDS: OMEGA-3 (PURIFIED FISH OIL) 1 GM CAP PO SCH (21:12)
[2019-12-02] MEDS: ATORVASTATIN 10 MG TAB PO SCH (21:13)
[2019-12-03] MEDS: MoRPHine SULFATE 2 MG/ML CARP IV PRN ×4 (04:04→16:20)
[2019-12-03] MEDS: IMIPENEM/CILASTATIN SODIUM 500 MG in DEXTROSE 5% 100 ML IV SCH ×4 (04:05→22:03)
[2019-12-03] MEDS: LEVOTHYROXINE SODIUM 88 MCG TABLET PO SCH (06:11)
[2019-12-03] MEDS: ONDANSETRON INJ 2 MG/ML 2 ML VIAL IV PRN ×3 (06:22→20:25)
[2019-12-03 06:29] LABS: Basophils # (auto) 0.05 K/uL (0-0.2); Basophils % (auto) 0.3 %; Eosinophils # (auto) 0.23 K/uL (0-0.5); Eosinophils % (auto) 1.6 %; Hematocrit (blood only) 29.6 % (37-47); Hemoglobin 8.9 g/dL (12.0-16.0); Immature Granulocytes % (auto) 1.4 %; Lymphocytes # (auto) 1.57 K/uL (1.2-3.4); Lymphocytes % (auto) 10.8 %; Mean Corpuscular Hemoglobin 27.6 pg (25-34); Mean Corpuscular Hgb Conc 30.1 g/dL (32-36); Mean Corpuscular Volume 91.9 fL (80-100); Mean Platelet Volume 9.2 fL (7.4-10.4); Monocytes # (auto) 0.61 K/uL (0.11-0.59); Monocytes % (auto) 4.2 %; Neutrophils # (auto) 11.91 K/uL (1.4-6.5); Neutrophils % (auto) 81.7 %; Platelet Count 322 K/uL (130-400); RDW Coefficient of Variation 15.6 % (11.5-14.5); RDW Standard Deviation 52.7 fL (36.4-46.3); Red Blood Count 3.22 M/uL (4.2-5.4); White Blood Count 14.57 K/uL (4.8-10.8)
[2019-12-03 07:05] LABS: Creatinine Clr Calc Pharmacy 92.2 ml/min; Est GFR (African American) 72.9; Est GFR (Non-African American) 62.9; Potassium 4.3 mmol/L (3.5-5.1)
[2019-12-03] MEDS: OXYCODONE HCL IR 5 MG TAB (IMMEDIATE RELEASE) PO SCH ×4 (08:42→20:38)
[2019-12-03] MEDS: FLUTICASONE/VILANTEROL 100/25MCG 14 PUFFS/INHALER INH SCH (08:43)
[2019-12-03] MEDS: UMECLIDINIUM BROMIDE 62.5MCG/BLISTER 7 PUFFS/INHALER INH SCH (08:43)
[2019-12-03] MEDS: BUMETANIDE 1 MG TAB PO SCH ×2 (08:44→20:29)
[2019-12-03] MEDS: DOCUSATE SODIUM/SENNA 50/8.6MG TAB PO SCH ×2 (08:44→20:33)
[2019-12-03] MEDS: PANTOprazole 40 MG TAB PO SCH (08:44)
[2019-12-03] MEDS: INSULIN HUMAN NPH SC SCH ×2 (08:45→17:32)
[2019-12-03] MEDS: GABAPENTIN 300 MG CAP PO SCH ×3 (08:45→20:29)
[2019-12-03] MEDS: NYSTATIN POWDER 15GM BTL EXT SCH ×2 (08:46→20:30)
[2019-12-03] MEDS: INSULIN ASPART 100 UNITS/ML 3 ML PEN SC SCH ×4 (08:47→20:31)
--- NOTE | 2019-12-03 10:11 | Pharmacy Report ---
Pharmacy Glycemic Short Note 2 - Date of Service December 03, 2019 - Glycemic Short BSG Results (Last 24 hours): 12/02/19 12/02/19 12/02/19 11:30 16:58 20:07 Glucose POC Glucose 166 H 137 H 152 H 12/03/19 12/03/19 05:59 07:34 Glucose 189 H POC Glucose 189 H OUTPATIENT ANTIDIABETIC REGIMEN: * U500 insulin pump (upwards of 350 units/day) * A1c = 6.5% on 11/11/2019 INPATIENT GLYCEMIC REGIMEN AND CAUSES OF INSULIN RESISTANCE: ASSESSMENT: * BSGs reasonably well-controlled yesterday ranging 137-169 mg/dL * Elevated fasting BSG this morning of 189 mg/dL * Continues on Primaxin 500 mg IV q6h PLAN FOR INPATIENT GLYCEMIC CONTROL: * Basal insulin - increase scale starting with evening meal * NPH SQ BIDM per the following scale: * 55 units for BSG < 110 * 65 units for BSG 110-180 * 70 units for BSG > 180 * Bolus insulin - continue * NovoLog per scale ACHS or Q6hrs while NPO * Goal Range: Low 110 mg/dL - High 140 mg/dL * Correction Factor: 5 mg/dL/unit * Carb ratio: 1 unit / 3 grams CHO consumed PLAN FOR DISCHARGE: * Resume U-500 insulin pump upon patient discharge. If SNF and patient prefer, could discharge on basal-bolus just while at SNF, then transition back to U- 500 pump upon discharge from SNF.
--- NOTE | 2019-12-03 11:12 | Family Medicine Progress Note ---
Date of Service December 03, 2019 Assessment & Plan (1) Decubital ulcer: 64 yo F PMHx CKD, DM2, morbid obesity with bedbound status and chronic Garcia, sacral decubitus ulcers, anemia of chronic disease admitted 11/09 for worsening R gluteal infection, started on Unasyn and debrided 11/15. 11/28 had a wound culture which grew Pseudomonas, Proteus, and Klebsiella and was started on imipenem/cilastatin. Now with further worsening of her decubitus ulcerations and for surgical debridement under anesthesia tomorrow. Sepsis 2/2 infected sacral decubitus and thigh wounds: - from cellulitis from sacral and thigh wounds. - Pt's WBC cell count overall down from admission from 21 -> 14. - Per wound care and Surgery today patient's wounds continue to break down. Will go for surgical debridement tomorrow. - May require plastic surgery for wound flap if extensive enough tissue removal however patient compliance could be an issue. - Frequent turning to prevent further tissue breakdown. - For likely SNF following discharge, will need COVID 19 negative before placement. DM2: - Last Hgb A1c 6.5 on U500 insulin pump. - Insulin titration per pharmacy. Chronic pain syndrome: - Home meds, continue IV morphine PRN pain before rolling. Anemia: - Ashraf s a history of iron deficiency and anemia of chronic disease, with levels as low as 6 this admission. Baseline 8-9. - Was transfused 2u PRBCs with return to baseline Hgb levels. - No signs or symptoms of active bleeding. Continue to monitor. - Continue iron and B12 supplementation. Hypertension: - BP normotensive, continue Bumex. Chronic respiratory failure, multifactorial (COPD, ZACKARY, obesity hypoventilation syndrome): - Pt without increased oxygen demand this admission, currently at baseline 3LNC. - Patient has done well perioperatively previously this admission. - Continue home Wixela, Spiriva. Hx recurrent UTI with chronic indwelling Garcia catheter: - Pt without urinary signs or symptoms. - Garcia was changed yesterday by nursing. Hypothyroidism: - Patient's last TSH 2.11 in February 2019. - Continue home levothyroxine 88mcg daily. Code Status: FULL CODE FEN/GI: NPO after midnight for surgery tomorrow DVT ppx: hold for surgery tomorrow, will start Heparin after surgery given increased risk due to bedbound status Dispo: Med/Surg with Telemetry (2) Deep tissue injury: (3) CAD (coronary artery disease): (4) Anemia: (5) Chronic indwelling Garcia catheter: (6) Chronic respiratory failure with hypoxia and hypercapnia: (7) Hypertension: (8) Anemia: (9) ZACKARY (obstructive sleep apnea): (10) DM II (diabetes mellitus, type II), controlled: (11) COPD (chronic obstructive pulmonary disease): (12) Hypothyroid: (13) Sepsis: Admission and Anticipated Discharge Date Admission Date: November 10, 2019 Supervising Physician Co-Signing Physician Notes I personally examined the patient and verified all song points of history and exam, discussed case, and agree with decision making with Dr. Mauricio with the following additions/exceptions: Continues to c/o pain in buttocks and pain in legs that is chronic. Is accepting of having repeat surgery tomorrow for further debridement Vitals reviewed Morbidky obese, NAD, AAOx3 RRR no mgr CTAB no wcr althouhg diminished due to body habitus throughout Abd +BS soft NT ND, obese EXT no edema, 2+ DP pulses bilat Skin-deferred exam 64 yo female with a h/o CAD, fatty liver, HTN, morbid obesity, DMII, HTN, HL, chronic Garcia, bedbound status, here with worsening sacral decubitus ulcers with multiple organisms growing out. Has only now been on appropriate abx with Imipenem since 11/30. Needs repeat debridement tomorrow NPO after midnight Subjective Pt without acute events overnight. Reports back and leg pain with rotating and per nursing has refused rotation a few times. Her biggest focus is that she is "more tired today", did not sleep well overnight. No fevers or chills, no abd ominal pain, diarrhea, constipation. No SOB or CP. Review of Systems Constitutional: no fever and no chills Respiratory: no cough, no dyspnea and no wheezing Cardiovascular: no chest pain and no palpitations Gastrointestinal: no abdominal pain, no nausea, no vomiting, no constipation and no diarrhea/loose stools Musculoskeletal: + back pain Physical Exam Constitutional: well developed and + morbidly obese Eyes: + anicteric sclerae Respiratory: normal respiratory effort, lungs clear to auscultation Cardiovascular: RRR, no murmur, no edema Gastrointestinal (Abdomen): normal bowel sounds, soft, nontender, no hepatosplenomegaly Skin: No visible rashes. Back exam deferred as patient refused turning to visualize at time of interview Psychiatric: A+Ox3, euthymic affect Genitourinary: with Garcia catheter in place draining clear urine Results & Data ([facility]) Vital Signs (Past 12 Hours) Vital Signs Temp Pulse Pulse Resp BP Pulse Ox 12/03/19 08:02 36.9 C 80 18 102/64 100 12/03/19 07:22 76 12/03/19 03:35 37 C 77 16 112/65 93 12/02/19 23:28 37.1 C 82 18 109/65 94 12/02/19 23:20 90 Resident Activity Tracking Resident Involvement: Resident Care Provided Care Provided: Adult Hospital Medicine (1) Hypothyroid Hypothyroidism type: unspecified Qualified Code(s): E03.9 - Hypothyroidism, unspecified (2) DM II (diabetes mellitus, type II), controlled Diabetes mellitus complication detail: with other kidney complication Diabetes mellitus complication status: with kidney complications Diabetes mellitus [facility] insulin use: with [facility] use Qualified Code(s): E11.29 - Type 2 diabetes mellitus with other diabetic kidney complication; Z79.4 - superintendent container terminal (current) use of insulin (3) COPD (chronic obstructive pulmonary disease) COPD type: unspecified COPD Qualified Code(s): J44.9 - Chronic obstructive pulmonary disease, unspecified (4) Hypertension Hypertension type: essential hypertension Qualified Code(s): I10 - Essential (primary) hypertension
[2019-12-03] MEDS: FERROUS SULFATE 325 MG TAB PO SCH (12:36)
[2019-12-03] MEDS: ZINC SULFATE 220 MG CAPSULE PO SCH (12:37)
[2019-12-03] MEDS: ACETAMINOPHEN 325 MG TAB PO PRN (12:40)
[2019-12-03] MEDS: MAGNESIUM OXIDE 400 MG TAB PO SCH (12:47)
--- NOTE | 2019-12-03 13:50 | Wound Progress Note ---
Date of Service December 03, 2019 Assessment & Plan (1) Decubital ulcer: Post op #[address] Kay on November 15. Has not been seen by surgery in a few days as patient was refusing to turn. Wounds are deteriorating. Would continue to dressed with Aquasol AG at this time. Try to explain to patient that she would continue to deteriorate if she not keep repositioning. We will continue to follow. (2) Deep tissue injury: Continue to dress leg wounds with Aquacel and OPTi foam. Second [place] right heel with Betadine. Subjective Patient seen laying in bed. Patient is on [id number] mattress. States she had a rough night with her Garcia leaking. Still complaining of pain with rolling. Has been resistant to being turned. Review of Systems Review of Systems: All systems reviewed & are unremarkable except as noted in HPI & below Physical Exam Skin: Wound measurements recorded in nursing documentation. There is purulent drainage and slough. There is foul odor. Wounds appear to be deteriorating. Neurologic: awake; not confused Psychiatric: A+Ox3, euthymic affect Results & Data Vital Signs (Past 12 Hours) Vital Signs Temp Pulse Pulse Resp BP BP Pulse Ox 12/03/19 11:24 36.9 C 83 20 118/73 98 12/03/19 08:02 36.9 C 80 18 102/64 100 12/03/19 07:22 76 12/03/19 03:35 37 C 77 16 112/65 93 PG Care Time/CCT Total # of Minutes Spent Total Time Spent with Patient: Total time spent is greater than 50% in coordination of care (as documented) at patient's floor/unit and/or counseling patient: Coding Level of Care Code 85704 Subseq Hosp Care Lvl 2 Diagnoses Decubital ulcer L89.90 Deep tissue injury T14.8XXA
--- NOTE | 2019-12-03 14:18 | Surgery Progress Note ---
Date of Service December 03, 2019 Assessment & Plan (1) Decubital ulcer: Multiple decubital ulcers in the buttock sacrum and thigh area. Discussed with patient. We will plan for debridement under general anesthesia again tomorrow. We discussed the procedure and the possible complications. She has signed a consent form. Subjective Subjectively unchanged Wound care team indicates necrotic tissue again around the inner portion of the wounds White count had increased but then started to trend towards normal after antibiotics Pain level is unchanged Results & Data Vital Signs (Past 12 Hours) Vital Signs Temp Pulse Pulse Resp BP BP Pulse Ox 12/03/19 11:24 36.9 C 83 20 118/73 98 12/03/19 08:02 36.9 C 80 18 102/64 100 12/03/19 07:22 76 12/03/19 03:35 37 C 77 16 112/65 93
--- NOTE | 2019-12-03 17:03 | Electrocardiogram Report ---
Test Reason : Blood Pressure : / mmHG Vent. Rate : 079 BPM Atrial Rate : 079 BPM P-R Int : 176 ms QRS Dur : 090 ms QT Int : 376 ms P-R-T Axes : 044 033 073 degrees QTc Int : 431 ms Normal sinus rhythm Normal ECG Confirmed by Yassine Lane ([id number]) on 12/03/2019 5:03:00 PM Referred By: REFERRED SELF Confirmed By:Pawel Lane
[2019-12-03] MEDS: BISMUTH SUBSALICYLATE SUSP PO PRN (17:40)
[2019-12-03] MEDS: ATORVASTATIN 10 MG TAB PO SCH (20:29)
[2019-12-03] MEDS: OMEGA-3 (PURIFIED FISH OIL) 1 GM CAP PO SCH (20:32)
--- NOTE | 2019-12-03 23:33 | Billing Data ---
Date of Service December 03, 2019 Coding Level of Care Code 58826 Subseq Hosp Care Lvl 2
[2019-12-04] MEDS: MoRPHine SULFATE 2 MG/ML CARP IV PRN ×3 (00:32→22:33)
[2019-12-04] MEDS: ONDANSETRON 4 MG OD TAB PO PRN (00:44)
[2019-12-04] MEDS: IMIPENEM/CILASTATIN SODIUM 500 MG in DEXTROSE 5% 100 ML IV SCH ×4 (03:24→22:22)
[2019-12-04] MEDS: ONDANSETRON INJ 2 MG/ML 2 ML VIAL IV PRN ×2 (03:25→20:26)
[2019-12-04] MEDS: LEVOTHYROXINE SODIUM 88 MCG TABLET PO SCH (06:14)
[2019-12-04 07:08] LABS: Basophils # (auto) 0.06 K/uL (0-0.2); Basophils % (auto) 0.5 %; Eosinophils # (auto) 0.25 K/uL (0-0.5); Eosinophils % (auto) 2.3 %; Hematocrit (blood only) 29.4 % (37-47); Hemoglobin 9.1 g/dL (12.0-16.0); Immature Granulocytes # (auto) 0.26 K/uL (0.00-0.02); Immature Granulocytes % (auto) 2.3 %; Lymphocytes # (auto) 1.41 K/uL (1.2-3.4); Lymphocytes % (auto) 12.7 %; Mean Corpuscular Hemoglobin 28.2 pg (25-34); Mean Platelet Volume 9.3 fL (7.4-10.4); Monocytes # (auto) 0.69 K/uL (0.11-0.59); Monocytes % (auto) 6.2 %; Neutrophils # (auto) 8.41 K/uL (1.4-6.5); Platelet Count 320 K/uL (130-400); RDW Coefficient of Variation 15.5 % (11.5-14.5); RDW Standard Deviation 51.8 fL (36.4-46.3); Red Blood Count 3.23 M/uL (4.2-5.4); White Blood Count 11.08 K/uL (4.8-10.8)
--- NOTE | 2019-12-04 07:38 | Family Medicine Progress Note ---
Date of Service December 04, 2019 Assessment & Plan (1) Decubital ulcer: 64 yo F PMHx CKD, DM2, morbid obesity with bedbound status and chronic Garcia, sacral decubitus ulcers, anemia of chronic disease admitted 11/09 for worsening R gluteal infection, started on Unasyn and debrided 11/15. 11/28 had a wound culture which grew Pseudomonas, Proteus, and Klebsiella and was started on imipenem/cilastatin. Now with further worsening of her decubitus ulcerations and for surgical debridement under anesthesia today. Sepsis 2/2 infected sacral decubitus and thigh wounds: - From cellulitis from sacral and thigh wounds. - Recent wound culture grew Pseudomonas, Proteus, and Klebsiella. - Pt's WBC cell count overall down from admission from 21 -> 11. - Per wound care and Surgery yesterday patient's wounds continue to break down. Had sacral decubitus and thigh debridement this afternoon by Dr. Kay. - Per prior notes may require plastic surgery for wound flap if extensive enough tissue removal however patient compliance could be an issue. - Frequent turning to prevent further tissue breakdown. Pt continues to refuse turning which will be a significant barrier to her healing. Educated her that without turning her wounds will continue to ulcerate and will never im prove, continuing to make her feel ill due to infection. - Continue imipenem/cilastatin, started this Abx on 11/30. - For likely SNF following discharge, will need COVID 19 testing before placement. DM2: - Last Hgb A1c 6.5 on U500 insulin pump. - Insulin titration per pharmacy as below: Basal insulin - decrease due to NPO status NPH 45 units SC x 1 this morning Will order scale for this evening Bolus insulin - continue NovoLog per scale ACHS or Q6hrs while NPO Goal Range: Low 110 mg/dL - High 140 mg/dL Correction Factor: 5 mg/dL/unit Carb ratio: 1 unit / 3 grams CHO consumed - Resume U-500 insulin pump upon patient discharge. If SNF and patient prefer, could discharge on basal-bolus just while at SNF, then transition back to U-500 pump upon discharge from SNF. Chronic respiratory failure, multifactorial (COPD, ZACKARY, obesity hypoventilation syndrome): - Pt without increased oxygen demand this admission, currently at baseline 3LNC. - Patient has done well perioperatively previously this admission. - Continue home Wixela, Spiriva. - Pt states that she has been tested for ZACKARY previously which was negative. However given body habitus and elevated [place] Sleepiness Scale will consider overnight sleep study. Hx recurrent UTI with chronic indwelling Garcia catheter: - Pt without urinary signs or symptoms. - Garcia was changed yesterday by nursing. - Garcia draining yellow clear urine. Chronic pain syndrome: - Home meds, continue IV morphine PRN pain before rolling. Anemia: - Has a history of iron deficiency and anemia of chronic disease, with levels as low as 6 this admission. Baseline 8-9. - Was transfused 2u PRBCs with return to baseline Hgb levels. - No signs or symptoms of active bleeding. At baseline Hgb. Continue to monitor. - Continue iron and B12 supplementation. Hypertension: - BP normotensive, continue Bumex. Hypothyroidism: - Patient's last TSH 2.11 in February 2019. - Continue home levothyroxine 88mcg daily. Code Status: FULL CODE FEN/GI: Advance as tolerated following surgery DVT ppx: hold for surgery, SCDs ordered; will resume Heparin promptly following surgery Dispo: Med/Surg with Telemetry (2) Deep tissue injury: (3) CAD (coronary artery disease): (4) Anemia: (5) Chronic indwelling Garcia catheter: (6) Chronic respiratory failure with hypoxia and hypercapnia: (7) Hypertension: (8) ZACKARY (obstructive sleep apnea): (9) DM II (diabetes mellitus, type II), controlled: (10) COPD (chronic obstructive pulmonary disease): (11) Hypothyroid: - Patient's last TSH - Continue home levothyroxine 88mcg daily. (12) Sepsis: Admission and Anticipated Discharge Date Admission Date: November 10, 2019 Supervising Physician Co-Signing Physician Notes I personally examined the patient and verified all song points of history and exam, discussed case, and agree with decision making with Dr. Mauricio with the following additions/exceptions: Continues to c/o pain in legs that is chronic. Is now status post repeat surgical debridement today and tolerated that well. Has no complaints, denies chest pain or shortness of breath postoperatively. She reports she just wants to sleep. She reports that she will not allow any nurses to turn her tonight but tomorrow she well. Vitals reviewed Morbidly obese, NAD, AAOx3 RRR no mgr CTAB no wcr although diminished due to body habitus throughout Abd +BS soft NT ND, obese EXT no edema, 2+ DP pulses bilat 64 yo female with a h/o CAD, fatty liver, HTN, morbid obesity, DMII, HTN, HL, chronic Garcia, bedbound status, here with worsening sacral decubitus ulcers with multiple organisms growing out. Has only now been on appropriate abx with Imipenem since 11/30. Had debridement on 11/15 Now status post repeat debridement again on 12/03 Appreciate general surgery and wound care management Subjective Pt without acute events overnight. Last night was a little nervous about her upcoming procedure and said that was accompanied by some difficulty breathing, lasted less than 30 seconds and passed. Said she has been tested for ZACKARY before and was negative. Denies snoring, but does fall asleep frequently during the day and can feel tired throughout the day.For OR today for surgical debridement. Review of Systems Constitutional: no fever and no chills Respiratory: no cough, no dyspnea and no wheezing Cardiovascular: no chest pain and no palpitations Gastrointestinal: no abdominal pain, no nausea, no vomiting, no constipation and no diarrhea/loose stools Genitourinary: no hematuria Musculoskeletal: + back pain Physical Exam Constitutional: well developed and + morbidly obese Eyes: + anicteric sclerae Respiratory: lungs CTA b/l, diminished breath sounds 2/2 habitus bilaterally Cardiovascular: RRR, no murmur, no edema Gastrointestinal (Abdomen): normal bowel sounds, soft, nontender, no hepatosplenomegaly Psychiatric: A+Ox3, euthymic affect Results & Data ([facility]) Vital Signs (Past 12 Hours) Vital Signs Temp Pulse Pulse Resp BP Pulse Ox 12/04/19 07:24 72 12/04/19 04:51 36.6 C 83 20 110/62 98 12/04/19 04:15 36.6 C 74 18 124/71 98 12/04/19 00:00 73 12/03/19 23:55 36.5 C 81 19 122/73 100 Resident Activity Tracking Resident Involvement: Resident Care Provided Care Provided: Adult Hospital Medicine (1) Hypothyroid Hypothyroidism type: unspecified Qualified Code(s): E03.9 - Hypothyroidism, unspecified (2) DM II (diabetes mellitus, type II), controlled Diabetes mellitus complication detail: with other kidney complication Diabetes mellitus complication status: with kidney complications Diabetes mellitus nursing home insulin use: with analyzer sales use Qualified Code(s): E11.29 - Type 2 diabetes mellitus with other diabetic kidney complication; Z79.4 - peer health promoter (current) use of insulin (3) COPD (chronic obstructive pulmonary disease) COPD type: unspecified COPD Qualified Code(s): J44.9 - Chronic obstructive pulmonary disease, unspecified (4) Hypertension Hypertension type: essential hypertension Qualified Code(s): I10 - Essential (primary) hypertension
[2019-12-04 07:43] LABS: BUN Creatinine Ratio 24.4 (10-20); Calcium 10.6 mg/dl (8.5-10.1); Est GFR (African American) 77.8; Est GFR (Non-African American) 67.1
[2019-12-04] MEDS: OXYCODONE HCL IR 5 MG TAB (IMMEDIATE RELEASE) PO SCH ×4 (08:20→20:34)
[2019-12-04] MEDS: PANTOprazole 40 MG TAB PO SCH (08:22)
[2019-12-04] MEDS: DOCUSATE SODIUM/SENNA 50/8.6MG TAB PO SCH ×2 (08:22→20:24)
[2019-12-04] MEDS: GABAPENTIN 300 MG CAP PO SCH ×3 (08:23→20:23)
[2019-12-04] MEDS: FLUTICASONE/VILANTEROL 100/25MCG 14 PUFFS/INHALER INH SCH (08:24)
[2019-12-04] MEDS: UMECLIDINIUM BROMIDE 62.5MCG/BLISTER 7 PUFFS/INHALER INH SCH (08:24)
[2019-12-04] MEDS: BUMETANIDE 1 MG TAB PO SCH ×2 (08:25→17:27)
[2019-12-04] MEDS: NYSTATIN POWDER 15GM BTL EXT SCH ×2 (08:26→20:35)
[2019-12-04] MEDS ORDERED: INSULIN HUMAN NPH SC ONE (09:00)
[2019-12-04] MEDS: INSULIN HUMAN NPH SC SCH ×2 (09:09→17:28)
[2019-12-04] MEDS: INSULIN ASPART 100 UNITS/ML 3 ML PEN SC SCH ×4 (09:25→20:25)
--- NOTE | 2019-12-04 09:59 | Pharmacy Report ---
Pharmacy Glycemic Short Note 2 - Date of Service December 04, 2019 - Glycemic Short BSG Results (Last 24 hours): OUTPATIENT ANTIDIABETIC REGIMEN: * U500 insulin pump (upwards of 350 units/day) * A1c = 6.5% on 11/11/2019 ASSESSMENT: * BSGs reasonably well-controlled yesterday ranging 156-189 mg/dL * Patient NPO today for scheduled sacral decubitus and thigh debridement * Will adjust AM NPH * Continues on Primaxin 500 mg IV q6h PLAN FOR INPATIENT GLYCEMIC CONTROL: * Basal insulin - decrease due to NPO status * NPH 45 units SC x 1 this morning * Will order scale for this evening * Bolus insulin - continue * NovoLog per scale ACHS or Q6hrs while NPO * Goal Range: Low 110 mg/dL - High 140 mg/dL * Correction Factor: 5 mg/dL/unit * Carb ratio: 1 unit / 3 grams CHO consumed PLAN FOR DISCHARGE: * Resume U-500 insulin pump upon patient discharge. If SNF and patient prefer, could discharge on basal-bolus just while at SNF, then transition back to U- 500 pump upon discharge from SNF.
[2019-12-04] MEDS ORDERED: LIDOCAINE HCL 2% 2 ML VIAL/AMP(20MG/ML) INFIL ONE (11:50)
[2019-12-04] MEDS ORDERED: MIDAZOLAM HCL 1 MG/ML 2ML VIAL ONE (11:50)
[2019-12-04] MEDS ORDERED: ONDANSETRON INJ 2 MG/ML 2 ML VIAL ONE (11:50)
[2019-12-04] MEDS ORDERED: SUCCINYLCHOLINE CHLORIDE 20 MG/ML 10 ML VIAL ONE (11:50)
[2019-12-04] MEDS ORDERED: PROPOFOL IV EMULSION 10 MG/ML 20 ML VIAL IV ONE (11:50)
[2019-12-04] MEDS ORDERED: fentaNYL citrate 100 MCG/2 ML VIAL ONE ×2 (11:50→15:09)
[2019-12-04] MEDS ORDERED: ROCURONIUM BROMIDE 10 MG/ML 5 ML VIAL ONE (11:50)
[2019-12-04] MEDS: ZINC SULFATE 220 MG CAPSULE PO SCH (12:00)
[2019-12-04] MEDS: FERROUS SULFATE 325 MG TAB PO SCH (12:39)
[2019-12-04] MEDS: MAGNESIUM OXIDE 400 MG TAB PO SCH (12:42)
[2019-12-04] MEDS ORDERED: BUPIVACAINE 0.5 % 5 MG/1 ML MPF 30ML VIAL ONE (13:12)
[2019-12-04] MEDS ORDERED: EPINEPHrine INJ 1 MG/ML AMP ONE (13:12)
--- NOTE | 2019-12-04 13:30 | History & Physical Bridge Note ---
Date of Service December 04, 2019 History & Physical Bridge Note I have examined the patient, reviewed the History & Physical and in the interval since the performance of the History & Physical I have noted the following changes of clinical significance: no changes noted
--- NOTE | 2019-12-04 13:30 | Anesthesiology Consultation ---
Date of Service December 04, 2019 Assessment & Plan (1) Encounter for pre-operative examination: Chart Review Chart Review: Acceptable Risk for Surgery History Surgery Operation Date: 11/12/19 09:35 Proposed Procedures p Debridement Lower Back Ulcer - Luc Arce MD Operation Date: 11/14/19 07:00 Proposed Procedures p Buttock and Sacral Decubitus Debridement - nAil Kay MD Operation Date: 11/16/19 08:30 Proposed Procedures p Debridement of Buttock and Sacral Decubitus - Anil Kay MD Operation Date: 12/04/19 12:50 Proposed Procedures p Sacral Decubitus and Thigh Debridement - Anil Kay MD Height/Weight Height: 5 ft 7 in Weight: 150.3 kg Allergies Allergy/AdvReac Type Severity Reaction Status Date / Time cephalexin [From Keflex] Allergy Mild Rash Unverified 11/10/19 15:07 Medications Home Medications Medication Instructions Recorded Confirmed Last Taken Spiriva with HandiHaler 1 cap INHALATION QAM 11/15/18 11/10/19 11/10/19 carvedilol 3.125 mg PO BID 11/15/18 11/10/19 11/10/19 cholecalciferol (vitamin D3) 5,000 unit PO WE 11/15/18 11/10/19 11/07/19 [Vitamin D3] cyanocobalamin (vitamin B-12) 1,000 mcg IM Q30D 11/15/18 11/10/19 08/18/19 docusate sodium 100 mg PO BID 11/15/18 11/10/19 11/10/19 nitrofurantoin macrocrystal 50 mg PO HS 11/15/18 11/10/19 11/09/19 nystatin 1 applic TOPICAL BID 11/15/18 11/10/19 11/10/19 oxycodone 20 mg PO QID 11/15/18 11/10/19 11/10/19 gabapentin 300 mg PO TID #90 cap 11/19/18 11/10/19 11/10/19 cranberry 450 mg PO DAILY@1200 03/09/19 11/10/19 11/10/19 ferrous sulfate 325 mg PO DAILY@1200 03/09/19 11/10/19 11/10/19 fluticasone propion-salmeterol 1 inh INHALATION BID 03/09/19 11/10/19 11/10/19 [Wixela Inhub] magnesium oxide 400 mg PO DAILY@119903/09/19 11/10/19 11/10/19 omega 7-qft-qsb-fish oil [Fish Oil] 1 cap PO HS 03/09/19 11/10/19 11/09/19 insulin regular hum U-500 conc 500 See Rx Instructions .ROUTE 04/23/19 11/10/19 09/11/19 unit/mL subcutaneous soln .COMPLEX #20 milliliter levothyroxine 88 mcg PO QAM 09/11/19 11/10/19 11/10/19 omeprazole 20 mg PO QAM 09/11/19 11/10/19 11/10/19 zinc 50 mg PO DAILY@119909/11/19 11/10/19 11/10/19 atorvastatin 10 mg PO HS 11/10/19 11/10/19 11/09/19 bumetanide 1 mg PO BID 11/10/19 11/10/19 11/10/19 lisinopril 5 mg PO DAILY@12 11/10/19 11/10/19 11/10/19 menthol-zinc oxide [Calmoseptine] 1 applic TOPICAL BID PRN 11/10/19 11/10/19 11/10/19 ondansetron HCl 4 mg PO Q6H PRN 11/10/19 11/10/19 Unknown Active Medications Generic Name Dose Route Start Last Admin Trade Name Freq PRN Reason Stop Dose Admin Acetaminophen 650 mg 11/10/19 19:30 12/03/19 12:40 Tylenol PO 12/10/19 19:29 650 mg Q4H PRN Administration pain/fever Atorvastatin Calcium 10 mg 11/10/19 21:00 12/03/19 20:29 Lipitor PO 12/10/19 20:59 10 mg HS RUSS Administration Bismuth Subsalicylate 30 ml 11/17/19 15:01 12/03/19 17:40 Pepto-Bismol PO 12/17/19 15:00 30 ml TID PRN Administration Diarrhea Bumetanide 0.5 mg 11/15/19 17:00 12/04/19 08:25 Bumex PO 12/15/19 16:59 0.5 mg BID17 RUSS Administration Cyanocobalamin 1,000 mcg 11/17/19 09:00 11/17/19 07:39 Vitamin B-12 IM 12/17/19 08:59 1,000 mcg Q30D RUSS Administration Ferrous Sulfate 325 mg 11/11/19 12:00 12/04/19 12:39 Feosol PO 12/11/19 11:59 Not Given DAILY@1200 RUSS Fish Oil 1 gm 11/10/19 21:00 12/03/19 20:32 Magnolia-3 (Purified Fish Oil) PO 12/10/19 20:59 1 gm HS RUSS Administration Fluticasone/Vilanterol 1 puffs 11/11/19 09:00 12/04/19 08:24 Breo Ellipta 100/25 Mcg Inh INH 12/11/19 08:59 1 puffs DAILY RUSS Administration Protocol Gabapentin 300 mg 11/10/19 21:00 12/04/19 08:23 Neurontin PO 12/10/19 20:59 300 mg TID RUSS Administration Imipenem/Cilastatin Sodium 500 110 mls @ 110 mls/hr 12/01/19 16:00 12/04/19 11:13 mg/ Dextrose IV 12/08/19 15:59 Infused Q6H [facility] Infusion Protocol Insulin Aspart 0 units 11/11/19 08:15 12/04/19 12:37 Novolog Flexpen SC 12/11/19 08:14 11 units ACHS RUSS Administration Insulin Human NPH 0 units 11/24/19 08:00 12/04/19 09:09 Novolin N Nph SC 12/24/19 07:59 Not Given BIDM [facility] Protocol Levothyroxine Sodium 88 mcg 11/11/19 06:30 12/04/19 06:14 Synthroid PO 12/11/19 06:29 88 mcg DAILYBB RUSS Administration Magnesium Hydroxide 30 ml 11/10/19 19:30 12/01/19 13:41 Milk Of Magnesia PO 12/10/19 19:29 30 ml Q6H PRN Administration Constipation Magnesium Oxide 400 mg 11/11/19 12:00 12/04/19 12:42 Mag-Ox PO 12/11/19 11:59 Not Given DAILY@1200 RUSS Miscellaneous 15 - 30 gm 11/10/19 19:30 11/15/19 07:44 Carbohydrates For Hypoglycemia PO 12/10/19 19:29 15 gm UD PRN Administration Hypoglycemia Protocol Morphine Sulfate 2 mg 12/02/19 19:24 12/04/19 10:14 Morphine Sulfate IV 12/13/19 11:16 2 mg Q2H PRN Administration prior to rolling/wound care Nystatin 1 appln 11/10/19 21:00 12/04/19 08:26 Mycostatin EXT 12/10/19 20:59 1 appln BID RUSS Administration Ondansetron HCl 4 mg 11/10/19 19:30 12/04/19 00:44 Zofran Odt PO 4 mg Q6H PRN Administration Nausea Ondansetron HCl 4 mg 11/10/19 19:30 12/04/19 03:25 Zofran IV 12/10/19 19:29 4 mg Q6H PRN Administration Nausea Oxycodone HCl 20 mg 11/24/19 22:00 12/04/19 08:20 Roxicodone Immediate Rel PO 12/08/19 21:59 20 mg QID RUSS Administration Pantoprazole Sodium 40 mg 11/11/19 09:00 12/04/19 08:22 Protonix PO 12/11/19 08:59 40 mg QAM RUSS Administration Polyethylene Glycol 17 gm 11/29/19 11:18 12/02/19 10:35 Miralax Powder Packet PO 12/22/19 17:29 17 gm QID PRN Administration Constipation Polyethylene Glycol/Electrolytes 1 dose 11/24/19 13:49 11/24/19 20:53 Golytely PO 12/24/19 13:48 1 dose Q4H PRN Administration constipatin Senna/Docusate Sodium 1 tab 11/22/19 21:00 12/04/19 08:22 Senokot S PO 12/22/19 20:59 1 tab BID RUSS Administration Simethicone 80 mg 11/30/19 02:21 11/30/19 03:33 Mylicon PO 12/30/19 02:20 80 mg Q6H PRN Administration Gas or Constipation Umeclidinium [place] 1 puffs 11/11/19 09:00 12/04/19 08:24 Incruse Ellipta INH 12/11/19 08:59 1 puffs DAILY RUSS Administration Vitamin D 5,000 units 11/14/19 09:00 11/28/19 08:59 Vitamin D3 PO 12/14/19 08:59 5,000 units We@0900 RUSS Administration Zinc Sulfate 220 mg 11/11/19 12:00 12/03/19 12:37 Zinc Sulfate PO 12/11/19 11:59 220 mg DAILY@1200 RUSS Administration NPO Date Last Intake of Fluids: 12/04/19 Time Last Intake of Fluids: 08:00 Date Last Intake of Solids: 12/03/19 Time Last Intake of Solids: 18:00 Past Medical History Medical History Acute hypotension (Inactive) Acute renal failure (Inactive) Acute UTI (Inactive) Anemia transfused 2 units pRBCs on 11/11/2019. 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; takes chronic opiates Chronic respiratory failure with hypoxia and hypercapnia (Chronic) on home o2, 3 L continuously Chronic ulcer of buttock COPD (chronic obstructive pulmonary disease) (Chronic) DM II (diabetes mellitus, type II), controlled (Chronic) insulin pump HLD (hyperlipidemia) (Chronic) HTN (hypertension) (Chronic) Hypothyroid Morbid obesity with BMI of 60.0-69.9, adult NAFLD (nonalcoholic fatty liver disease) Obesity hypoventilation syndrome (Chronic) Psoriasis (Chronic) Recurrent UTI (urinary tract infection) Sepsis (Inactive) Past Family History Family History Father Lung disease Mother , some form of uterine disease? No problems noted. Past Surgical History Surgical History (Updated 12/04/19 @ 13:29 by Cecil Moss MD) S/P excisional debridement Surgical history unknown Social History Smoking Status: Former smoker tobacco type: pipe Do You Dip or Chew Tobacco: No Hx Alcohol Use: No Hx Substance Use: No substance use type: does not use Physical Exam Vital Signs Last Vital Signs Temp 36.7 C 12/04/19 12:59 Pulse 85 12/04/19 12:59 Resp 18 12/04/19 12:59 BP 132/68 12/04/19 12:59 Pulse Ox 100 12/04/19 12:59 Testing Laboratory Results 12/04/19 06:23 12/04/19 06:23 PT 11.5 Seconds (9.0-12.0) 11/10/19 13:53 INR 1.1 (0.9-1.1) 11/10/19 13:53 APTT 24.5 Seconds (21.0-31.0) 11/10/19 13:53 Hemoglobin A1c 6.5 % (4.5-5.6) H 11/11/19 05:41 Urine Color Yellow 11/27/19 14:48 Urine Appearance Clear (Clear) 11/27/19 14:48 Urine pH 5.0 (4.5-7.5) 11/27/19 14:48 Ur Specific [place] 1.022 (1.000-1.030) 11/27/19 14:48 Urine Protein Negative (Negative) 11/27/19 14:48 Urine Glucose (UA) Negative (Negative) 11/27/19 14:48 Urine Ketones Negative (Negative) 11/27/19 14:48 Urine Nitrite Negative (Negative) 11/27/19 14:48 Ur Leukocyte Esterase 1+ (Negative) H 11/27/19 14:48 Urine WBC (Auto) 5-10 /hpf (0-5) H 11/27/19 14:48 Urine RBC (Auto) 0-4 /hpf (0-4) 11/27/19 14:48 U Hyaline Cast (Auto) 1-5 /lpf (0-5) 11/27/19 14:48 U Epithel Cells (Auto) >30 /lpf (0-5) H 11/27/19 14:48 Urine Bacteria (Auto) Negative (Negative) 11/27/19 14:48 Blood Type O Positive 11/11/19 14:56 Antibody Screen NEGATIVE 11/11/19 14:56 11/29/19 09:50 Gram Stain - Final Buttock,Right Deep Wound Culture - Final Pseudomonas aeruginosa Proteus mirabilis Klebsiella pneumoniae 11/10/19 13:53 Aerobic Blood Culture - Final Blood No growth in Aerobic bottle after 5 days. Anaerobic Blood Culture - Final No growth in Anaerobic bottle after 5 days. 11/10/19 13:53 Aerobic Blood Culture - Final Blood Coag neg staph not lugdunensis Anaerobic Blood Culture - Final 11/10/19 13:40 Urine Culture - Final Urine,Clean Catch Natacha albicans Diptheroids 12/04/19 12/04/19 11:22 07:56 POC Glucose 195 H 186 H Electrocardiogram Date: 12/03/19 Findings: + NSR @ (79) Echocardiogram Date: 11/05/19 EF: 55-60% LV Function: normal Valvular Disease: + no significant valvular disease
[2019-12-04] MEDS ORDERED: LABETALOL HCL IV 5 MG/ML 20ML IV PRN (13:33)
[2019-12-04] MEDS ORDERED: ONDANSETRON INJ 2 MG/ML 2 ML VIAL IV PRN (13:33)
[2019-12-04] MEDS ORDERED: ATROPINE SULFATE 0.1 MG/ML 10ML SYR IV PRN (13:33)
[2019-12-04] MEDS ORDERED: PHENYLEPHRINE 100MCG/ML 5ML SYR ONE (14:47)
[2019-12-04] MEDS: HYDROmorphone INJ 1 MG/ML SYRINGE IV PRN ×4 (15:34→15:49)
--- NOTE | 2019-12-04 15:40 | Post Operative Brief Note ---
Immediate Post Op Note v1 Date of Surgery December 04, 2019 Pre & Post Diagnosis Operation Date: 12/04/19 12:50 Pre-Op Diagnosis: Recurrent Cellulitis Post-Op Diagnosis: Recurrent Cellulitis I identified the patient and participated in the time-out.: Yes Procedure Operation Date: 12/04/19 12:50 Actual Procedures p Sacral Decubitus and Thigh Debridement(Not Applicable) - Anil Kay MD Surgeon Anil Kay MD [employer] None Estimated Blood Loss 10 Findings Consistent with Post-Op Diagnosis Drains Garcia Catheter (Patient Entered OR with Garcia Intact)
--- NOTE | 2019-12-04 15:57 | Anesthesiology Progress Note ---
Date of Service December 04, 2019 Anesthesia Post Procedure Vital Signs Vital Signs: Temp Pulse Pulse Pulse Resp BP BP 12/04/19 15:55 36.6 C 86 23 146/59 H 12/04/19 15:45 93 H 14 146/87 H 12/04/19 15:35 92 H 14 135/92 12/04/19 15:27 36.4 C L 96 H 22 147/96 H 12/04/19 12:59 36.7 C 85 18 132/68 12/04/19 11:09 36.8 C 75 20 144/73 H 12/04/19 07:38 36.9 C 75 20 105/47 L 12/04/19 07:24 72 12/04/19 04:51 36.6 C 83 20 110/62 12/04/19 04:15 36.6 C 74 18 124/71 12/04/19 00:00 73 12/03/19 23:55 36.5 C 81 19 122/73 12/03/19 19:24 36.9 C 81 20 140/69 12/03/19 16:35 36.6 C 79 18 120/58 L 12/03/19 16:30 76 Pulse Ox 12/04/19 15:55 100 12/04/19 15:45 96 12/04/19 15:35 96 12/04/19 15:27 97 12/04/19 12:59 100 12/04/19 11:09 100 12/04/19 07:38 100 12/04/19 07:24 12/04/19 04:51 98 12/04/19 04:15 98 12/04/19 00:00 12/03/19 23:55 100 12/03/19 19:24 100 12/03/19 16:35 100 12/03/19 16:30 Pain Intensity Generalized: Pain Intensity: 8 Left Buttock: Pain Intensity: 8 Bilateral Back: Pain Intensity: 8 Back: Pain Intensity: 5 Right Leg: Pain Intensity: 7 Medial Buttock: Pain Intensity: 5 Bilateral Knee: Pain Intensity: 4 Transfer of Care Handoff Completed per policy Notes Mental Status: alert / awake / arousable Patient Amnestic to Procedure: Yes Nausea / Vomiting: adequately controlled Pain: adequately controlled Airway Patency, RR, SpO2: stable & adequate BP & HR: stable & adequate Hydration State: stable & adequate Anesthetic Complications: no major complications apparent
--- NOTE | 2019-12-04 16:00 | Operative Report (OR) ---
DATE OF OPERATION: 12/04/2019 PREOPERATIVE DIAGNOSIS: Sacral, buttock and thigh decubiti. POSTOPERATIVE DIAGNOSIS: Sacral, buttock and thigh decubiti. PROCEDURE: Debridement of sacral and buttock and thigh decubiti. SURGEON: Anil Kay MD. FINDINGS: The patient had 4 decubiti with the following measurements; 13 x 11 x 3, 8 x 3 x 1, 8 x 3 x 0.1 and 9 x 8 x 3 cm. There was necrotic tissue in the 2 larger ones in the center of each of those. This extended in the buttock down to the gluteus eulalia muscle. The other was into the ischial fat. One of the thigh extended into the fat as well. The fourth that was more superficial had good granulation tissue and there was very little debridement with the exception of a small amount of necrotic skin at the edge. There was granulation tissue around the entire edges of all of these. TECHNIQUE: The patient was given a general anesthetic, positioned and the area was prepped and draped in the usual sterile fashion. All of the necrotic tissue was elevated and removed using sharp and cautery dissection where appropriate. This was carried down to tissue that appeared to be viable around the entire base and edges of all of the decubiti. Meticulous hemostasis was then obtained using cautery. The estimated blood loss was 10 mL. Sponge, needle and instrument counts were correct. A wet dressing was then placed. I attest to the content of the Intraoperative Record and any orders documented therein. Any exception s are noted below.
--- NOTE | 2019-12-04 19:11 | Billing Data ---
Date of Service December 04, 2019 Coding Level of Care Code 32076 Subseq Hosp Care Lvl 2
[2019-12-04] MEDS: BISMUTH SUBSALICYLATE SUSP PO PRN (19:15)
[2019-12-04] MEDS: ATORVASTATIN 10 MG TAB PO SCH (20:24)
[2019-12-04] MEDS: OMEGA-3 (PURIFIED FISH OIL) 1 GM CAP PO SCH (20:24)
[2019-12-05] MEDS: IMIPENEM/CILASTATIN SODIUM 500 MG in DEXTROSE 5% 100 ML IV SCH ×4 (04:27→21:51)
[2019-12-05] MEDS: LEVOTHYROXINE SODIUM 88 MCG TABLET PO SCH (06:10)
[2019-12-05] MEDS: MoRPHine SULFATE 2 MG/ML CARP IV PRN ×3 (07:46→16:54)
[2019-12-05 08:31] LABS: Basophils # (auto) 0.06 K/uL (0-0.2); Basophils % (auto) 0.5 %; Eosinophils # (auto) 0.22 K/uL (0-0.5); Eosinophils % (auto) 1.8 %; Hematocrit (blood only) 31.4 % (37-47); Hemoglobin 9.3 g/dL (12.0-16.0); Immature Granulocytes # (auto) 0.29 K/uL (0.00-0.02); Immature Granulocytes % (auto) 2.4 %; Lymphocytes # (auto) 1.51 K/uL (1.2-3.4); Lymphocytes % (auto) 12.4 %; Mean Corpuscular Hemoglobin 27.3 pg (25-34); Mean Corpuscular Hgb Conc 29.6 g/dL (32-36); Mean Corpuscular Volume 92.1 fL (80-100); Mean Platelet Volume 9.2 fL (7.4-10.4); Monocytes # (auto) 0.79 K/uL (0.11-0.59); Monocytes % (auto) 6.5 %; Neutrophils # (auto) 9.27 K/uL (1.4-6.5); Neutrophils % (auto) 76.4 %; Platelet Count 384 K/uL (130-400); RDW Coefficient of Variation 15.6 % (11.5-14.5); Red Blood Count 3.41 M/uL (4.2-5.4); White Blood Count 12.14 K/uL (4.8-10.8)
[2019-12-05] MEDS ORDERED: HEPARIN SOD 5,000 UNIT/0.5 ML VIAL SQ SCH (09:00)
[2019-12-05] MEDS: OXYCODONE HCL IR 5 MG TAB (IMMEDIATE RELEASE) PO SCH ×4 (09:02→21:50)
[2019-12-05] MEDS: DOCUSATE SODIUM/SENNA 50/8.6MG TAB PO SCH ×2 (09:03→21:50)
[2019-12-05] MEDS: BUMETANIDE 1 MG TAB PO SCH ×2 (09:04→16:55)
[2019-12-05] MEDS: GABAPENTIN 300 MG CAP PO SCH ×3 (09:05→21:48)
[2019-12-05] MEDS: CHOLECALCIFEROL 1,000 UNITS 25 MCG TAB PO SCH (09:06)
[2019-12-05] MEDS: PANTOprazole 40 MG TAB PO SCH (09:06)
[2019-12-05] MEDS: UMECLIDINIUM BROMIDE 62.5MCG/BLISTER 7 PUFFS/INHALER INH SCH (09:07)
[2019-12-05] MEDS: INSULIN HUMAN NPH SC SCH ×2 (09:10→17:44)
[2019-12-05] MEDS: INSULIN ASPART 100 UNITS/ML 3 ML PEN SC SCH ×4 (09:13→21:49)
[2019-12-05] MEDS: FLUTICASONE/VILANTEROL 100/25MCG 14 PUFFS/INHALER INH SCH (09:14)
[2019-12-05] MEDS: NYSTATIN POWDER 15GM BTL EXT SCH ×2 (09:15→21:48)
--- NOTE | 2019-12-05 10:14 | Family Medicine Progress Note ---
Date of Service December 05, 2019 Assessment & Plan (1) Decubital ulcer: 64 yo F PMHx CKD, DM2, morbid obesity with bedbound status and chronic Garcia, sacral decubitus ulcers, anemia of chronic disease admitted 11/09 for worsening R gluteal infection, started on Unasyn and debrided 11/15. 11/28 had a wound culture which grew Pseudomonas, Proteus, and Klebsiella and was started on imipenem/cilastatin. With further worsening of her decubitus ulcerations this admission, and s/p surgical debridement. Sepsis 2/2 infected sacral decubitus and thigh wounds: - From cellulitis from sacral and thigh wounds. - Recent wound culture grew Pseudomonas, Proteus, and Klebsiella. - Pt's WBC cell count overall down from admission from 21 -> 12. - Had sacral decubitus and thigh debridement on both 11/15 and 12/[address] Kay. - Per prior notes may require plastic surgery for wound flap if extensive enough tissue removal however patient compliance could be an issue. - Frequent turning to prevent further tissue breakdown. Pt continues to refuse turning which will be a significant barrier to her healing. Educated her that without turning her wounds will continue to ulcerate and will never improve, continuing to make her feel ill due to infection. Reiterated dosing with morphine before turning. Pt is amenable to turning with morphine prior per our conversation, however nursing reports that she still will not accept turning despite morphine. - Continue imipenem/cilastatin, started this Abx on 11/30. - For likely SNF following discharge, will need COVID 19 testing before placement. Will work with Case Management toward placement; will also confer with wound care and general surgery regarding dispo. DM2: - Last Hgb A1c 6.5 on U500 insulin pump. - Insulin titration per pharmacy as below: Basal insulin NPH 65 units BIDM Bolus insulin NovoLog per scale ACHS or Q6hrs while NPO Goal Range: Low 110 mg/dL - High 140 mg/dL Correction Factor: 5 mg/dL/unit Carb ratio: 1 unit / 3 grams CHO consumed Resume U-500 insulin pump upon patient discharge. If SNF and patient prefer, could discharge on basal-bolus just while at SNF, then transition back to U-500 pump upon discharge from SNF. Chronic respiratory failure, multifactorial (COPD, ZACKARY, obesity hypoventilation syndrome): - Pt without increased oxygen demand this admission during the day, currently at baseline 3LNC. - Nocturnal pulse ox showed patient had SpO2 drop to 35% for about 2 minutes while sleeping, despite being on 3LNC. - Have ordered BiPAP for this evening given extreme hypoxia, pt will "think about using it" per my conversation with her earlier today. - Continue home Goldy Mcdonough. Hx recurrent UTI with chronic indwelling Garcia catheter: - Pt without urinary signs or symptoms. - Garcia was changed 12/02 by nursing. - Garcia draining yellow clear urine. Chronic pain syndrome: - Home meds, continue IV morphine PRN pain before rolling. -consult Palliative Care for pain management and goals of care Anemia: - Has a history of iron deficiency and anemia of chronic disease, with levels as low as 6 this admission. Baseline 8-9. - Was transfused 2u PRBCs with return to baseline Hgb levels early in her admission. - No signs or symptoms of active bleeding. At baseline Hgb. Continue to monitor. - Continue iron and B12 supplementation. Hypertension: - BP normotensive, continue Bumex. Hypothyroidism: - Patient's last TSH 2.11 in February 2019. - Continue home levothyroxine 88mcg daily. Code Status: FULL CODE, pt is thinking about her code status but at this time will defer to admission wants/needs. FEN/GI: DM2 diet DVT ppx: Heparin 5000u SQ q8h Dispo: Med/Surg (2) Deep tissue injury: (3) CAD (coronary artery disease): (4) Anemia: (5) Chronic indwelling Garcia catheter: (6) Chronic respiratory failure with hypoxia and hypercapnia: (7) Hypertension: (8) ZACKARY (obstructive sleep apnea): (9) DM II (diabetes mellitus, type II), controlled: (10) COPD (chronic obstructive pulmonary disease): (11) Hypothyroid: (12) Sepsis: Admission and Anticipated Discharge Date Admission Date: November 10, 2019 Supervising Physician Co-Signing Physician Notes I personally examined the patient and verified all song points of history and exam, discussed case, and agree with decision making with Dr. Mauricio with the following additions/exceptions: Patient being bathed when I saw her. We discussed her profound hypoxia overnight as above and she states that she most likely will not wear a BiPAP mask and that she cannot stand. She states that she absolutely is willing to turn despite multiple reports from multiple nurses that she will not do so. Other than pain in the legs, she has no other complaints. Vitals reviewed Morbidly obese, NAD, AAOx3 EXT no edema 64 yo female with a h/o CAD, fatty liver, HTN, morbid obesity, DMII, HTN, HL, chronic Garcia, bedbound status, here with worsening very large sacral decubitus ulcers with multiple organisms growing out. Has only now been on appropriate abx with Imipenem since 11/30. Had debridement on 11/15 Now status post repeat debridement again on 12/03 Appreciate general surgery and wound care management Appreciate further recommendations on management of these very large wounds Subjective Patient without any acute events overnight. Still refusing turning several times per nursing, however pt reports that she "is willing to turn with morphine 2mg prior to turning however sometimes after receiving the morphine the nurses get busy and cannot turn me in time". With Dr. Gao present, patient was informed of her nocturnal pulse ox study, which showed that her oxygen saturation went as low as 35% for over 2 minutes at one point in the middle of the night. She reports that "this only happens if I do not sit up". She states that her oxygen levels "stay good" if she can sit up at night. She reports having a nasal CPAP at home that she can use, but "the mask is too uncomfortable on my face when it covers it and I can't use that kind". She was then told that she could have a cardiac arrest if her oxygen goes that low, to which she replied "I wouldn't have to worry about this if I were at home. I will think about wearing the mask, but I do not like that kind". She was then asked in the event of a cardiac arrest if she would like us to use a ventilator or perform compressions/defibrillate her to which she replied "I will think about it". Denies abdominal pain, vomiting, chills, fevers, chest pain, SOB. Review of Systems Constitutional: no fever and no chills Respiratory: no cough, no dyspnea and no wheezing Cardiovascular: no chest pain and no palpitations Gastrointestinal: no abdominal pain, no nausea, no vomiting, no constipation and no diarrhea/loose stools Genitourinary: no hematuria Musculoskeletal: + back pain Physical Exam Constitutional: well developed and + morbidly obese Eyes: + anicteric sclerae Respiratory: normal respiratory effort, lungs clear to auscultation Cardiovascular: RRR, no murmur, no edema Gastrointestinal (Abdomen): normal bowel sounds, soft, nontender, no hepatosplenomegaly Psychiatric: A+Ox3, euthymic affect Results & Data ([facility]) Vital Signs (Past 12 Hours) Vital Signs Temp Pulse Pulse Resp BP Pulse Ox 12/05/19 07:30 37.1 C 80 20 109/60 94 12/05/19 07:28 82 12/05/19 05:14 74 12/05/19 03:26 37.0 C 79 19 125/68 100 12/05/19 00:19 36.8 C 97 H 20 102/76 96 Resident Activity Tracking Resident Involvement: Resident Care Provided Care Provided: Adult Hospital Medicine (1) Hypothyroid Hypothyroidism type: unspecified Qualified Code(s): E03.9 - Hypothyroidism, unspecified (2) DM II (diabetes mellitus, type II), controlled Diabetes mellitus complication detail: with other kidney complication Diabetes mellitus complication status: with kidney complications Diabetes mellitus fdc insulin use: with fdc use Qualified Code(s): E11.29 - Type 2 diabetes mellitus with other diabetic kidney complication; Z79.4 - senior living (current) use of insulin (3) COPD (chronic obstructive pulmonary disease) COPD type: unspecified COPD Qualified Code(s): J44.9 - Chronic obstructive pulmonary disease, unspecified (4) Hypertension Hypertension type: essential hypertension Qualified Code(s): I10 - Essential (primary) hypertension
--- NOTE | 2019-12-05 11:11 | Pharmacy Report ---
Pharmacy Glycemic Short Note 2 - Date of Service December 05, 2019 - Glycemic Short BSG Results (Last 24 hours): OUTPATIENT ANTIDIABETIC REGIMEN: * U500 insulin pump (upwards of 350 units/day) * A1c = 6.5% on 11/11/2019 ASSESSMENT: * POD #1 s/p sacral decubitus and thigh debridement - NPO for breakfast and lunch * Empirically lowered NPH yesterday - will restart previous NPH dose * Continues on Primaxin 500 mg IV q6h * Plan is for discharge to rehab facility - having difficulty with placement at this time PLAN FOR INPATIENT GLYCEMIC CONTROL: * Basal insulin * NPH 65 units BIDM * Bolus insulin - continue * NovoLog per scale ACHS or Q6hrs while NPO * Goal Range: Low 110 mg/dL - High 140 mg/dL * Correction Factor: 5 mg/dL/unit * Carb ratio: 1 unit / 3 grams CHO consumed PLAN FOR DISCHARGE: * Resume U-500 insulin pump upon patient discharge. If SNF and patient prefer, could discharge on basal-bolus just while at SNF, then transition back to U- 500 pump upon discharge from SNF.
[2019-12-05] MEDS: MAGNESIUM OXIDE 400 MG TAB PO SCH (12:15)
[2019-12-05] MEDS: FERROUS SULFATE 325 MG TAB PO SCH (12:15)
[2019-12-05] MEDS: ZINC SULFATE 220 MG CAPSULE PO SCH (12:15)
[2019-12-05] MEDS: ONDANSETRON INJ 2 MG/ML 2 ML VIAL IV PRN ×2 (12:19→18:28)
--- NOTE | 2019-12-05 14:41 | Wound Progress Note ---
Date of Service December 05, 2019 Assessment & Plan (1) Decubital ulcer: Post op #1 second surgical debridement by Dr. Kay on December 03. Wound beds look clean. There is significant oozing wound dressings are removed. We will cover exposed muscle with Adaptic touch, packed wounds with Aquacel Ag and cover with a Tegaderm to keep wound moist. Will reevaluate placing wound VAC on Tuesday. Try to explain to patient that she would continue to deteriorate if she not keep repositioning. We will continue to follow. (2) Deep tissue injury: Continue to dress leg wounds with Aquacel and OPTi foam. Kountze right heel with Betadine. Subjective Patient seen laying in bed. Patient is on [id number] mattress. Patient is inconsistent with regards to letting nursing staff rotate her. She is postop day number 1 second surgical debridement per Dr. Kay. Review of Systems Review of Systems: All systems reviewed & are unremarkable except as noted in HPI & below Physical Exam Skin: Wound measuring is recorded in nursing documentation. Buttock wounds are bleeding when dressings are removed. Wound base is clean. Neurologic: awake; not confused Psychiatric: A+Ox3, euthymic affect Results & Data Vital Signs (Past 12 Hours) Vital Signs Temp Pulse Pulse Resp BP Pulse Ox 12/05/19 07:30 37.1 C 80 20 109/60 94 12/05/19 07:28 82 12/05/19 05:14 74 12/05/19 03:26 37.0 C 79 19 125/68 100 PG Care Time/CCT Total # of Minutes Spent Total Time Spent with Patient: Total time spent is greater than 50% in coordination of care (as documented) at patient's floor/unit and/or counseling patient: Coding Level of Care Code 51753 Subseq Hosp Care Lvl 2 Diagnoses Decubital ulcer L89.90 Deep tissue injury T14.8XXA
--- NOTE | 2019-12-05 17:10 | Billing Data ---
Date of Service December 05, 2019 Coding Level of Care Code 27829 Subseq Hosp Care Lvl 2
[2019-12-05] MEDS: ATORVASTATIN 10 MG TAB PO SCH (21:48)
[2019-12-05] MEDS: HEPARIN SOD 5,000 UNIT/0.5 ML VIAL SQ SCH (21:50)
[2019-12-05] MEDS: OMEGA-3 (PURIFIED FISH OIL) 1 GM CAP PO SCH (21:50)
[2019-12-05] MEDS: BISMUTH SUBSALICYLATE SUSP PO PRN (21:51)
[2019-12-06] MEDS: MoRPHine SULFATE 2 MG/ML CARP IV PRN ×3 (04:31→15:52)
[2019-12-06] MEDS: IMIPENEM/CILASTATIN SODIUM 500 MG in DEXTROSE 5% 100 ML IV SCH ×4 (04:31→21:53)
[2019-12-06] MEDS: HEPARIN SOD 5,000 UNIT/0.5 ML VIAL SQ SCH ×3 (05:44→20:50)
[2019-12-06] MEDS: LEVOTHYROXINE SODIUM 88 MCG TABLET PO SCH (05:44)
[2019-12-06 07:12] LABS: Basophils # (auto) 0.06 K/uL (0-0.2); Basophils % (auto) 0.5 %; Eosinophils # (auto) 0.37 K/uL (0-0.5); Eosinophils % (auto) 3.3 %; Hematocrit (blood only) 28.9 % (37-47); Hemoglobin 8.7 g/dL (12.0-16.0); Immature Granulocytes # (auto) 0.39 K/uL (0.00-0.02); Immature Granulocytes % (auto) 3.5 %; Lymphocytes # (auto) 1.92 K/uL (1.2-3.4); Lymphocytes % (auto) 17.2 %; Mean Corpuscular Hemoglobin 27.8 pg (25-34); Mean Corpuscular Hgb Conc 30.1 g/dL (32-36); Mean Corpuscular Volume 92.3 fL (80-100); Mean Platelet Volume 8.9 fL (7.4-10.4); Monocytes # (auto) 0.78 K/uL (0.11-0.59); Neutrophils # (auto) 7.62 K/uL (1.4-6.5); Neutrophils % (auto) 68.5 %; Platelet Count 349 K/uL (130-400); RDW Coefficient of Variation 15.8 % (11.5-14.5); RDW Standard Deviation 52.9 fL (36.4-46.3); Red Blood Count 3.13 M/uL (4.2-5.4); White Blood Count 11.14 K/uL (4.8-10.8)
[2019-12-06 07:17] LABS: BUN Creatinine Ratio 25.4 (10-20); Calcium 10.2 mg/dl (8.5-10.1); Creatinine Clr Calc Pharmacy 91.1 ml/min; Est GFR (African American) 72.9; Est GFR (Non-African American) 62.9
[2019-12-06] MEDS: NYSTATIN POWDER 15GM BTL EXT SCH ×2 (08:45→20:31)
[2019-12-06] MEDS: FLUTICASONE/VILANTEROL 100/25MCG 14 PUFFS/INHALER INH SCH (08:45)
[2019-12-06] MEDS: UMECLIDINIUM BROMIDE 62.5MCG/BLISTER 7 PUFFS/INHALER INH SCH (08:46)
[2019-12-06] MEDS: BUMETANIDE 1 MG TAB PO SCH ×2 (08:46→17:40)
[2019-12-06] MEDS: GABAPENTIN 300 MG CAP PO SCH ×3 (08:47→20:41)
[2019-12-06] MEDS: DOCUSATE SODIUM/SENNA 50/8.6MG TAB PO SCH ×2 (08:47→20:42)
[2019-12-06] MEDS: PANTOprazole 40 MG TAB PO SCH (08:48)
[2019-12-06] MEDS: INSULIN ASPART 100 UNITS/ML 3 ML PEN SC SCH ×4 (08:50→20:50)
[2019-12-06] MEDS: INSULIN HUMAN NPH SC SCH ×2 (08:50→17:43)
[2019-12-06] MEDS: OXYCODONE HCL IR 5 MG TAB (IMMEDIATE RELEASE) PO SCH ×4 (08:56→20:49)
[2019-12-06] MEDS: ONDANSETRON INJ 2 MG/ML 2 ML VIAL IV PRN ×2 (08:56→16:33)
--- NOTE | 2019-12-06 10:05 | Family Medicine Progress Note ---
Date of Service December 06, 2019 Assessment & Plan (1) Decubital ulcer: .64 yo F PMHx CKD, DM2, morbid obesity with bedbound status and chronic Garcia, sacral decubitus ulcers, anemia of chronic disease admitted 11/09 for worsening R gluteal infection, started on Unasyn and debrided 11/15. 11/28 had a wound culture which grew Pseudomonas, Proteus, and Klebsiella and was started on imipenem/cilastatin. With further worsening of her decubitus ulcerations this admission, and s/p surgical debridement. Sepsis 2/2 infected sacral decubitus and thigh wounds: - From cellulitis from sacral and thigh wounds. - Recent wound culture grew Pseudomonas, Proteus, and Klebsiella. - Pt's WBC cell count overall down from admission from -> 11. - Had sacral decubitus and thigh debridement on both 11/15 and 12/[address] Kay. - Per prior notes may require plastic surgery for wound flap if extensive enough tissue removal however patient compliance could be an issue. - Frequent turning to prevent further tissue breakdown. Pt continues to refuse turning intermittently which will be a significant barrier to her healing. Educated her that without turning her wounds will continue to ulcerate and will never improve, continuing to make her feel ill due to infection. Pt is amenable to turning with morphine prior per our conversation, however nursing reports that she still will not accept turning despite morphine. - WOund care to place wound vac tomorrow. - Continue imipenem/cilastatin, started this Abx on 11/30. - For likely SNF vs. LTAC following discharge, will need COVID 19 testing before placement. Will work with Case Management toward placement. - Pt would not be able to be on IV pain medication if discharged to SNF. LTAC would be a good option however unclear if this will be covered by insurance or if the patient is amenable. DM2: - Last Hgb A1c 6.5 on U500 insulin pump. - Insulin titration per pharmacy as below: Basal insulin NPH 65 units BIDM Bolus insulin NovoLog per scale ACHS or Q6hrs while NPO Goal Range: Low 110 mg/dL - High 140 mg/dL Correction Factor: 5 mg/dL/unit Carb ratio: 1 unit / 3 grams CHO consumed Resume U-500 insulin pump upon patient discharge. If SNF and patient prefer, could discharge on basal-bolus just while at SNF, then transition back to U-500 pump upon discharge from SNF. Chronic respiratory failure, multifactorial (COPD, ZACKARY, obesity hypoventilation syndrome): - Pt without increased oxygen demand this admission during the day, currently at baseline 3LNC. - Nocturnal pulse ox showed patient had SpO2 drop to ~40% for about 2 minutes while sleeping, despite being on 3LNC. - Ordered BiPAP yesterday evening given extreme hypoxia, pt continues to refuse and is aware that having an oxygen level that low from not wearing BiPAP can cause things as significant as cardiac arrest, still declines. - Continue home Wixela, Spiriva. - Increase oxygen to 5LNC at night. Hx recurrent UTI with chronic indwelling Garcia catheter: - Pt without urinary signs or symptoms. - Garcia was changed 12/02 by nursing. - Garcia draining yellow clear urine. Chronic pain syndrome: - Home meds, continue IV morphine PRN pain before rolling. - consulted Palliative Care for pain management and goals of care; will see tomorrow. Anemia: - Has a history of iron deficiency and anemia of chronic disease, with levels as low as 6 this admission. Baseline 8-9. - Was transfused 2u PRBCs with return to baseline Hgb levels early in her admission. - No signs or symptoms of active bleeding. At baseline Hgb. Continue to monitor. - Continue iron and B12 supplementation. Hypertension: - BP normotensive, continue Bumex. Hypothyroidism: - Patient's last TSH 2.11 in February 2019. - Continue home levothyroxine 88mcg daily. Code Status: FULL CODE, pt is thinking about her code status but at this time will defer to admission wants/needs. FEN/GI: DM2 diet DVT ppx: Heparin 5000u SQ q8h Dispo: Med/Surg (2) Deep tissue injury: (3) CAD (coronary artery disease): (4) Anemia: (5) Chronic indwelling Garcia catheter: (6) Chronic respiratory failure with hypoxia and hypercapnia: (7) Hypertension: (8) ZACKARY (obstructive sleep apnea): (9) DM II (diabetes mellitus, type II), controlled: (10) COPD (chronic obstructive pulmonary disease): (11) Hypothyroid: - Patient's last TSH - Continue home levothyroxine 88mcg daily. (12) Sepsis: Admission and Anticipated Discharge Date Admission Date: November 10, 2019 Supervising Physician Co-Signing Physician Notes I personally examined the patient and verified all song points of history and exam, discussed case, and agree with decision making with Dr. Mauricio with the following additions/exceptions: Patient reports being upset earlier in the day about the conversation about wearing the BiPAP. She had the mask on for 1 minute and could not tolerate it. Also suggested LTAC to her for placement and she will discuss with her daughter. Vitals reviewed Morbidly obese, NAD, AAOx3 Regular rate and rhythm, no murmurs gallops or rubs Lungs clear to auscultation bilaterally but diminished throughout due to body habitus EXT trace pitting edema 64 yo female with a h/o CAD, fatty liver, HTN, morbid obesity, DMII, HTN, HL, chronic Garcia, bedbound status, here with worsening very large sacral decubitus ulcers with multiple organisms growing out. Has only now been on appropriate abx with Imipenem since 11/30. Had debridement on 11/15 Now status post repeat debridement again on 12/03 Appreciate general surgery and wound care management-plan for Wound Vac tomorrow -consideration should be made for LTAC given her very complex care managing these extremely large open wounds, morbid obesity, IV pain medicine requirement, and profound hypoxia and diabetes with massive amounts of insulin required which are changing daily Awaiting placement options Subjective Overnight patient refused turn at 2AM but accepted turning following morphine at 5am. She also refused BiPAP due to the mask covering her face. I asked her again why she refused the mask and she said that when it is on she "can't breathe". I asked for clarification and she said she is claustrophobic. I asked if she would be willing to have some anxiety medication at night to help her wear her BiPAP but she refused. Says that she "is fine, and wakes up when she needs to". I informed her that she is likely waking up due to hypoxia as her nocturnal pulse ox showed that she was ~40% SpO2 for over two minutes. At that time she said she "didn't want to fight with me, but wouldn't wear it". Was unable to ask her further questions, but did deny SOB, CP, abdominal pain, back pain except with turning. Review of Systems Review of Systems: no fever and no chills no cough, no dyspnea and no wheezing no chest pain and no palpitations no abdominal pain, no nausea, no vomiting, no constipation and no diarrhea/loose stools no hematuria + back pain Physical Exam Constitutional: well developed and + morbidly obese Eyes: + anicteric sclerae Respiratory: normal respiratory effort, lungs clear to auscultation Cardiovascular: RRR, no murmur, no edema Gastrointestinal (Abdomen): normal bowel sounds, soft, nontender, no hepatosplenomegaly Psychiatric: A+Ox3, euthymic affect Results & Data ([facility]) Vital Signs (Past 12 Hours) Vital Signs Temp Pulse Resp BP Pulse Ox 12/06/19 07:13 36.6 C 78 20 123/62 100 12/06/19 00:00 36.9 C 88 20 119/73 99 Resident Activity Tracking Resident Involvement: Resident Care Provided Care Provided: Adult Hospital Medicine (1) Hypothyroid Hypothyroidism type: unspecified Qualified Code(s): E03.9 - Hypothyroidism, unspecified (2) DM II (diabetes mellitus, type II), controlled Diabetes mellitus complication detail: with other kidney complication Diabetes mellitus complication status: with kidney complications Diabetes mellitus half-way insulin use: with intermediate designer use Qualified Code(s): E11.29 - Type 2 diabetes mellitus with other diabetic kidney complication; Z79.4 - terminal block assembler (current) use of insulin (3) COPD (chronic obstructive pulmonary disease) COPD type: unspecified COPD Qualified Code(s): J44.9 - Chronic obstructive pulmonary disease, unspecified (4) Hypertension Hypertension type: essential hypertension Qualified Code(s): I10 - Essential (primary) hypertension
--- NOTE | 2019-12-06 11:15 | Surgery Progress Note ---
Date of Service December 06, 2019 Assessment & Plan (1) S/P excisional debridement: Underwent debridement x2. Doing well from that standpoint. Wound care will now manage the wound. Subjective status post debridement of sacral buttock and thigh decubiti x2 Having persistent knee pain but very little pain in the area of the dissection. Results & Data Vital Signs (Past 12 Hours) Vital Signs Temp Pulse Resp BP Pulse Ox 12/06/19 07:13 36.6 C 78 20 123/62 100 12/06/19 00:00 36.9 C 88 20 119/73 99
[2019-12-06] MEDS: FERROUS SULFATE 325 MG TAB PO SCH (12:15)
[2019-12-06] MEDS: MAGNESIUM OXIDE 400 MG TAB PO SCH (12:15)
[2019-12-06] MEDS: ZINC SULFATE 220 MG CAPSULE PO SCH (12:15)
[2019-12-06] MEDS: BISMUTH SUBSALICYLATE SUSP PO PRN (13:23)
[2019-12-06] MEDS: ATORVASTATIN 10 MG TAB PO SCH (20:27)
[2019-12-06] MEDS: OMEGA-3 (PURIFIED FISH OIL) 1 GM CAP PO SCH (20:41)
--- NOTE | 2019-12-06 21:13 | Billing Data ---
Date of Service December 06, 2019 Coding Level of Care Code 84895 Subseq Hosp Care Lvl 3
[2019-12-07] MEDS: IMIPENEM/CILASTATIN SODIUM 500 MG in DEXTROSE 5% 100 ML IV SCH ×5 (04:02→22:50)
[2019-12-07] MEDS: MoRPHine SULFATE 2 MG/ML CARP IV PRN ×5 (06:59→22:50)
[2019-12-07] MEDS: LEVOTHYROXINE SODIUM 88 MCG TABLET PO SCH (07:33)
[2019-12-07] MEDS: HEPARIN SOD 5,000 UNIT/0.5 ML VIAL SQ SCH ×3 (07:33→21:32)
[2019-12-07] MEDS: INSULIN HUMAN NPH SC SCH ×2 (08:40→18:06)
[2019-12-07] MEDS: INSULIN ASPART 100 UNITS/ML 3 ML PEN SC SCH ×4 (08:41→21:32)
[2019-12-07] MEDS: ONDANSETRON 4 MG OD TAB PO PRN (08:51)
[2019-12-07] MEDS: ONDANSETRON INJ 2 MG/ML 2 ML VIAL IV PRN ×2 (08:59→17:54)
[2019-12-07] MEDS: OXYCODONE HCL IR 5 MG TAB (IMMEDIATE RELEASE) PO SCH ×4 (09:02→21:27)
[2019-12-07] MEDS: GABAPENTIN 300 MG CAP PO SCH ×3 (09:03→21:28)
[2019-12-07] MEDS: DOCUSATE SODIUM/SENNA 50/8.6MG TAB PO SCH ×2 (09:03→21:27)
[2019-12-07] MEDS: FLUTICASONE/VILANTEROL 100/25MCG 14 PUFFS/INHALER INH SCH (09:05)
[2019-12-07] MEDS: UMECLIDINIUM BROMIDE 62.5MCG/BLISTER 7 PUFFS/INHALER INH SCH (09:05)
[2019-12-07] MEDS: NYSTATIN POWDER 15GM BTL EXT SCH ×2 (09:09→21:30)
--- NOTE | 2019-12-07 09:58 | Palliative Care Consultation ---
Date of Consultation December 07, 2019 Assessment & Plan (1) Chronic pain syndrome: -64 year old female patient with PMH HTN, HLD, DM, JUDGE, morbid obesity, chronic Garcia catheter due to bedbound status, and previous admission for HOLLY requiring emergent HD x 3 sessions in August 2019, presented to the hospital 27 days ago from home with c/o worsening right gluteal wound/infection. Patient was admitted to hospital from 10/18-10/21/2019 with HOLLY and UTI. She was sent home where she lives with her , daughter, and daughter's s/o, with course of abx. She did have some skin breakdown at that time per documentation. She now returns with terrible sacral and leg decubitus ulcers. She has worsening right gluteal infection. She was started on Unasyn and debrided 11/15. Wound culture from 11/28 grew Pseudomonas, Proteus, and Klebsiella-- was started on imipenem/cilastatin. Her wounds continue to worsen, unfortunately. She is to have a wound vac placed today. As previously stated, patient is bedbound and requires total care. She is still awake, alert and oriented, however. She will need SNF placement after hospitalization. Patient also has chronic pain syndrome. She is currently receiving morphine 2mg IV Q2h PRN-- she has received three doses in last 24 hours. Palliative care is consulted to assist with goals of care and pain management. -Patient to be seen by palliative MD this afternoon. -Since patient is alert and oriented, have not called patient's family as of yet. If patient wishes for us to contact family, willing to do so. -Patient does not have a terminal illness documented, however, with her morbid obesity, bedbound status, and large infected wounds that are not likely to completely heal, it does make her prognosis somewhat guarded. -Patient reportedly has chronic pain syndrome. As stated, she has been using IV morphine for pain during this hospitalization, as well as her home dose of oxycodone 20mg PO QID scheduled. PDMP site checked-- patient receives 120 oxycodone pills per month regularly. Nothing else. -Per nursing documentation, patient has been c/o pain in bilateral legs, bilateral knees, and generalized; anywhere from 6 to 10/10. -Patient is not on long-acting medication. Could transition her to Oxycodone extended release 40mg PO BID scheduled. Discontinue Oxycodone 20mg IR QID. Use oxycodone IR 5mg PO Q4h PRN breakthrough pain and discontinue IV morphine. Of note, palliative team can make recommendations while patient is inpatient, but cannot manage her pain as outpatient. -Case management working on SNF placement in the [place] and [place] areas. No beds are secured yet at this time. -Any further recommendations listed below by palliative MD. (2) Decubital ulcer: (3) S/P excisional debridement: (4) Morbid obesity with BMI of 50.0-59.9, adult: Supervising Physician Co-Signing Physician Notes Chart reviewed, patient seen and examined. Collaborated with SHAHIDA Mcgowan as well as attending physician. Spoke with patient regarding why we were referred-to discuss goals of care as well as help with pain management. Patient did not want discuss goals of care CODE STATUS-repeatedly said you have to talk to my daughter about that. Patient states she has been followed by pain management for a long time-said nothing has worked except for her oxycodone 4 times a day, did not want any changes made or any additions. Patient deferred to her daughter to discuss placement. Patient stated she can do without the IV morphine if needed, does complain of nausea when she is turned-stated Zofran is effective. PE: Patient appears comfortable in bed, no acute distress. HEENT: EOMI, hearing within normal limits Respirations: Unlabored CV: Regular rate Abdomen: Morbidly obese Extremities: Decreased edema Neuro: Alert and oriented x4 Will follow peripherally, please let us know if we can be of further assistance, thank you kindly for this referral. History of Present Illness Attending Physician: Joan Gao MD History of Present Illness This 64 year old female patient with PMH HTN, HLD, DM, JUDGE, morbid obesity, chronic Garcia catheter due to bedbound status, and previous admission for HOLLY requiring emergent HD x 3 sessions in August 2019, presented to the hospital 27 days ago from home with c/o worsening right gluteal wound/infection. Patient was admitted to hospital from 10/18-10/21/2019 with HOLLY and UTI. She was sent home where she lives with her , daughter, and daughter's s/o, with course of abx. She did have some skin breakdown at that time per documentation. She now returns with terrible sacral and leg decubitus ulcers. She has worsening right gluteal infection. She was started on Unasyn and debrided 11/15. Wound culture from 11/28 grew Pseudomonas, Proteus, and Klebsiella-- was started on imipenem/cilastatin. Her wounds continue to worsen, unfortunately. She is to have a wound vac placed today. As previously stated, patient is bedbound and requires total care. She is still awake, alert and oriented, however. She will need SNF placement after hospitalization. Patient also has chronic pain syndr ome. She is currently receiving morphine 2mg IV Q2h PRN-- she has received three doses in last 24 hours. Palliative care is consulted to assist with goals of care and pain management. Thank you kindly for this consult. Palliative care team will follow as needed. Allergies Allergy/AdvReac Type Severity Reaction Status Date / Time cephalexin [From Keflex] Allergy Mild Rash Unverified 11/10/19 15:07 Home Medications Home Medications Medication Instructions Recorded Confirmed Type Spiriva with HandiHaler 1 cap INHALATION QAM 11/15/18 11/10/19 History carvedilol 3.125 mg PO BID 11/15/18 11/10/19 History cholecalciferol (vitamin D3) 5,000 unit PO WE 11/15/18 11/10/19 History [Vitamin D3] cyanocobalamin (vitamin B-12) 1,000 mcg IM Q30D 11/15/18 11/10/19 History docusate sodium 100 mg PO BID 11/15/18 11/10/19 History nitrofurantoin macrocrystal 50 mg PO HS 11/15/18 11/10/19 History nystatin 1 applic TOPICAL BID 11/15/18 11/10/19 History oxycodone 20 mg PO QID 11/15/18 11/10/19 History gabapentin 300 mg PO TID #90 cap 11/19/18 11/10/19 Rx cranberry 450 mg PO DAILY@1200 03/09/19 11/10/19 History ferrous sulfate 325 mg PO DAILY@1200 03/09/19 11/10/19 History fluticasone propion-salmeterol 1 inh INHALATION BID 03/09/19 11/10/19 History [Wixela Inhub] magnesium oxide 400 mg PO DAILY@1200 03/09/19 11/10/19 History omega 0-sgf-aki-fish oil [Fish Oil] 1 cap PO HS 03/09/19 11/10/19 History insulin regular hum U-500 conc 500 See Rx Instructions .ROUTE 04/23/19 11/10/19 Rx unit/mL subcutaneous soln .COMPLEX #20 milliliter levothyroxine 88 mcg PO QAM 09/11/19 11/10/19 History omeprazole 20 mg PO QAM 09/11/19 11/10/19 History zinc 50 mg PO DAILY@1200 09/11/19 11/10/19 History atorvastatin 10 mg PO HS 11/10/19 11/10/19 History bumetanide 1 mg PO BID 11/10/19 11/10/19 History lisinopril 5 mg PO DAILY@12 11/10/19 11/10/19 History menthol-zinc oxide [Calmoseptine] 1 applic TOPICAL BID PRN 11/10/19 11/10/19 History ondansetron HCl 4 mg PO Q6H PRN 11/10/19 11/10/19 History Patient History Medical History Acute hypotension (Inactive) Acute renal failure (Inactive) Acute UTI (Inactive) Anemia transfused 2 units pRBCs on 11/11/2019. 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; takes chronic opiates Chronic respiratory failure with hypoxia and hypercapnia (Chronic) on home o2, 3 L continuously Chronic ulcer of buttock COPD (chronic obstructive pulmonary disease) (Chronic) DM II (diabetes mellitus, type II), controlled (Chronic) insulin pump HLD (hyperlipidemia) (Chronic) HTN (hypertension) (Chronic) Hypothyroid Morbid obesity with BMI of 60.0-69.9, adult NAFLD (nonalcoholic fatty liver disease) Obesity hypoventilation syndrome (Chronic) Psoriasis (Chronic) Recurrent UTI (urinary tract infection) Sepsis (Inactive) Surgical History (Updated 12/04/19 @ 13:29 by Cecil Moss MD) S/P excisional debridement Surgical history unknown Family History Father Lung disease Mother , some form of uterine disease? No problems noted. Social History Preferred Language: Mongolian Communication Ability: Effective Prototype Technician Required: No Beliefs That Will Affect Care: None marital status: marital status details: Current Living Situation: Spouse and Family Current Living Situation Comment: Lives with and daughter. 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 Other Information That Helps Us Care for You: No Feels Safe at Home: Yes Safety Concerns: Feels Safe At This Time Smoking Status: Former smoker Tobacco Type: pipe ; packs per day: 1 ; Do You Dip or Chew Tobacco: No ; Second Hand Exposure: No ; Hx Alcohol Use: No Hx Substance Use: No Results & Data Vital Signs (Past 12 Hours) Vital Signs Temp Pulse Resp BP Pulse Ox 12/07/19 07:42 36.8 C 80 20 113/80 100 12/06/19 23:30 36.9 C 79 20 120/72 100 Coding Level of Care Code 39680 Inpt Consult Level 2 Diagnoses Chronic pain syndrome G89.4 Decubital ulcer L89.90 S/P excisional debridement Z98.890 Morbid obesity with BMI of 50.0-59.9, adult E66.01; Z68.43 Time Spent (min) 50 Time Spent Midlevel A total of 50 minutes spent by this LIVESTOCK FARM MANAGER in reviewing chart, reviewing PDMP, speaking with physicians regarding patient condition and plan of care.
[2019-12-07] MEDS: BUMETANIDE 1 MG TAB PO SCH ×2 (10:00→17:17)
[2019-12-07] MEDS: PANTOprazole 40 MG TAB PO SCH (10:00)
[2019-12-07] MEDS: BISMUTH SUBSALICYLATE SUSP PO PRN (10:01)
--- NOTE | 2019-12-07 10:14 | Family Medicine Progress Note ---
Date of Service December 07, 2019 Assessment & Plan (1) Decubital ulcer: 64 yo F PMHx CKD, DM2, morbid obesity with bedbound status and chronic Garcia, sacral decubitus ulcers, anemia of chronic disease admitted 11/09 for worsening R gluteal infection, started on Unasyn and debrided 11/15. 11/28 had a wound culture which grew Pseudomonas, Proteus, and Klebsiella and was started on imipenem/cilastatin. With further worsening of her decubitus ulcerations this admission, and s/p surgical debridement. Sepsis 2/2 infected sacral decubitus and thigh wounds: - From cellulitis from sacral and thigh wounds. - Recent wound culture grew Pseudomonas, Proteus, and Klebsiella. - Pt's WBC cell count overall down from admission from 21 -> 11. - Had sacral decubitus and thigh debridement on both 11/15 and 12/[address] Kay. - Per prior notes may require plastic surgery for wound flap if extensive enough tissue removal however patient compliance could be an issue. - Frequent turning to prevent further tissue breakdown. Pt continues to refuse turning intermittently which will be a significant barrier to her healing. Educated her that without turning her wounds will continue to ulcerate and will never improve, continuing to make her feel ill due to infection. Pt is amenable to turning with morphine prior per our conversation, however nursing reports that she still will not accept turning despite morphine. - Wound care has placed wound vac on - Continue imipenem/cilastatin, started this Abx on 11/30. Would continue for 2 weeks total - For likely SNF vs. LTAC following discharge, will need COVID 19 testing before placement. Will work with Case Management toward placement. DM2: - Last Hgb A1c 6.5 on U500 insulin pump. - Insulin titration per pharmacy: - Resume U-500 insulin pump upon patient discharge. If SNF and patient prefer, could discharge on basal-bolus just while at SNF, then transition back to U-500 pump upon discharge from SNF. Chronic respiratory failure, multifactorial (COPD, ZACKARY, obesity hypoventilation syndrome): - Pt without increased oxygen demand this admission during the day, currently at baseline 3LNC. - Nocturnal pulse ox showed patient had SpO2 drop to ~40% for about 2 minutes while sleeping, despite being on 3LNC. - Ordered BiPAP yesterday evening given extreme hypoxia, pt continues to refuse and is aware that having an oxygen level that low from not wearing BiPAP can cause things as significant as cardiac arrest, still declines. - Continue home Wixela, Spiriva. - Increased oxygen to 5LNC at night. Hx recurrent UTI with chronic indwelling Garcia catheter: - Pt without urinary signs or symptoms. - Garcia was changed today by nursing. - Garcia draining yellow clear urine. Chronic pain syndrome: - Home meds, continue IV morphine PRN pain before rolling. - Consulted Palliative Care for pain management and goals of care: -Palliative care suggested changing 20mg QID oxycodone IR to oxycodone ER 40mg BID, however the patient is highly resistant to any changes in her pain medication regimen. Anemia: - Has a history of iron deficiency and anemia of chronic disease, with levels as low as 6 this admission. Baseline 8-9. - Was transfused 2u PRBCs with return to baseline Hgb levels early in her admission. - No signs or symptoms of active bleeding. At baseline Hgb. Continue to monitor. - Continue iron and B12 supplementation. Hypertension: - BP normotensive, continue Bumex. Hypothyroidism: - Patient's last TSH 2.11 in February 2019. - Continue home levothyroxine 88mcg daily. Code Status: FULL CODE, pt is thinking about her code status but at this time will defer to admission wants/needs. Appreciate palliative care consultation FEN/GI: DM2 diet DVT ppx: Heparin 5000u SQ q8h Dispo: Med/Surg, stable medically for discharge to LTAC at this time, case management is involved (2) Deep tissue injury: (3) CAD (coronary artery disease): (4) Anemia: (5) Chronic indwelling Garcia catheter: (6) Chronic respiratory failure with hypoxia and hypercapnia: (7) Hypertension: (8) ZACKARY (obstructive sleep apnea): (9) DM II (diabetes mellitus, type II), controlled: (10) COPD (chronic obstructive pulmonary disease): (11) Hypothyroid: (12) Sepsis: Admission and Anticipated Discharge Date Admission Date: November 10, 2019 Supervising Physician Co-Signing Physician Notes I personally examined the patient and verified all song points of history and exam, discussed case, and agree with decision making with Dr. Mauricio with the following additions/exceptions: When I walked in the room today, the patient stated "I already talked to a lot of people about things and I do not want to talk about anything." She does volunteer that she is in discussions with her daughter about options for placement afterwards including LTAC Vitals reviewed Morbidly obese, NAD, AAOx3 Regular rate and rhythm, no murmurs gallops or rubs Lungs clear to auscultation bilaterally but diminished throughout due to body habitus EXT trace pitting edema Wound pictures reviewed as taken by wound care today 64 yo female with a h/o CAD, fatty liver, HTN, morbid obesity, DMII, HTN, HL, chronic Garcia, bedbound status, here with worsening very large sacral decubitus ulcers with multiple organisms growing out. Has only now been on appropriate abx with Imipenem since 11/30. Had debridement on 11/15 Now status post repeat debridement again on 12/03 Appreciate general surgery and wound care management- Wound Vac now in place and will need continued management -consideration is being made for LTAC given her very complex care managing these extremely large open wounds, morbid obesity, IV pain medicine requirement, and profound hypoxia and diabetes with massive amounts of insulin required which are changing daily Awaiting placement options Subjective Without acute events overnight. Resisted turning once. Had wound vac placed this AM. No fevers or chills, CP, SOB, abdominal pain. Talked to daughter today who expressed that her mother resists turning at home as well. Is supposed to be on CPAP but refuses to wear it. Wants her mom to go to LTAC "if that is what she needs in order to get well again". Review of Systems Review of Systems: no fever and no chills no cough, no dyspnea and no wheezing no chest pain and no palpitations no abdominal pain, no nausea, no vomiting, no constipation and no diarrhea/loose stools no hematuria + back pain Physical Exam Constitutional: well developed and + morbidly obese Eyes: + anicteric sclerae Respiratory: normal respiratory effort, lungs clear to auscultation Cardiovascular: RRR, no murmur, no edema Gastrointestinal (Abdomen): normal bowel sounds, soft, nontender, no hepatosplenomegaly Psychiatric: A+Ox3, euthymic affect Results & Data ([facility]) Vital Signs (Past 12 Hours) Vital Signs Temp Pulse Resp BP Pulse Ox 12/07/19 07:42 36.8 C 80 20 113/80 100 12/06/19 23:30 36.9 C 79 20 120/72 100 Resident Activity Tracking Resident Involvement: Resident Care Provided Care Provided: Adult Hospital Medicine (1) Hypothyroid Hypothyroidism type: unspecified Qualified Code(s): E03.9 - Hypothyroidism, unspecified (2) DM II (diabetes mellitus, type II), controlled Diabetes mellitus complication detail: with other kidney complication Diabetes mellitus complication status: with kidney complications Diabetes mellitus mcc insulin use: with machine long goods helper use Qualified Code(s): E11.29 - Type 2 diabetes mellitus with other diabetic kidney complication; 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
[2019-12-07] MEDS: FERROUS SULFATE 325 MG TAB PO SCH (13:03)
[2019-12-07] MEDS: MAGNESIUM OXIDE 400 MG TAB PO SCH (13:04)
[2019-12-07] MEDS: ZINC SULFATE 220 MG CAPSULE PO SCH (13:04)
--- NOTE | 2019-12-07 13:18 | Pharmacy Report ---
Pharmacy Glycemic Short Note 2 - Date of Service December 07, 2019 - Glycemic Short BSG Results (Last 24 hours): 12/06/19 12/06/19 12/07/19 17:10 20:34 08:03 POC Glucose 151 H 172 H 152 H 12/07/19 12:30 POC Glucose 155 H OUTPATIENT ANTIDIABETIC REGIMEN: * U500 insulin pump (upwards of 350 units/day) * A1c = 6.5% on 11/11/2019 INPATIENT INSULIN REGIMEN AND CAUSES OF INSULIN RESISTANCE: ASSESSMENT: 12/06 * Ms. Ayoub received 185 units of insulin yesterday * Fasting is slightly above goal but basal insulin already makes up quite a large portion of TDD * Postprandial BSGs elevated so will tighten prandial coverage and see what this provides to overall BSG values PLAN FOR INPATIENT GLYCEMIC CONTROL: * Basal insulin - no change * NPH 65 units BIDM * Bolus insulin - tighten CR * NovoLog per scale ACHS or Q6hrs while NPO * Goal Range: Low 110 mg/dL - High 140 mg/dL * Correction Factor: 5 mg/dL/unit * Carb ratio: 1 unit / 2.5 grams CHO consumed PLAN FOR DISCHARGE: * Resume U-500 insulin pump upon patient discharge. If SNF and patient prefer, could discharge on basal-bolus just while at SNF, then transition back to U- 500 pump upon discharge from SNF.
[2019-12-07] MEDS ORDERED: OXYCODONE HCL 40 MG TABCR (OXYCONTIN) PO SCH (19:30)
--- NOTE | 2019-12-07 20:10 | Billing Data ---
Date of Service December 07, 2019 Coding Level of Care Code 59245 Subseq Hosp Care Lvl 2
[2019-12-07] MEDS: ATORVASTATIN 10 MG TAB PO SCH (21:28)
[2019-12-07] MEDS: OMEGA-3 (PURIFIED FISH OIL) 1 GM CAP PO SCH (21:28)
[2019-12-08] MEDS: IMIPENEM/CILASTATIN SODIUM 500 MG in DEXTROSE 5% 100 ML IV SCH ×4 (04:59→21:47)
[2019-12-08] MEDS: LEVOTHYROXINE SODIUM 88 MCG TABLET PO SCH (06:30)
[2019-12-08] MEDS: HEPARIN SOD 5,000 UNIT/0.5 ML VIAL SQ SCH ×3 (06:31→21:10)
[2019-12-08] MEDS: MoRPHine SULFATE 2 MG/ML CARP IV PRN ×6 (06:36→21:47)
[2019-12-08] MEDS: MAGNESIUM HYDROXIDE SUSP 30 ML UDC PO PRN (06:36)
[2019-12-08] MEDS: ONDANSETRON INJ 2 MG/ML 2 ML VIAL IV PRN ×2 (07:30→13:36)
[2019-12-08 08:54] LABS: Basophils # (auto) 0.08 K/uL (0-0.2); Basophils % (auto) 0.6 %; Eosinophils # (auto) 0.33 K/uL (0-0.5); Eosinophils % (auto) 2.5 %; Hematocrit (blood only) 31.4 % (37-47); Hemoglobin 9.3 g/dL (12.0-16.0); Immature Granulocytes # (auto) 0.62 K/uL (0.00-0.02); Immature Granulocytes % (auto) 4.7 %; Lymphocytes # (auto) 1.54 K/uL (1.2-3.4); Lymphocytes % (auto) 11.7 %; Mean Corpuscular Hemoglobin 27.2 pg (25-34); Mean Corpuscular Hgb Conc 29.6 g/dL (32-36); Mean Corpuscular Volume 91.8 fL (80-100); Mean Platelet Volume 8.9 fL (7.4-10.4); Monocytes # (auto) 0.93 K/uL (0.11-0.59); Monocytes % (auto) 7.1 %; Neutrophils # (auto) 9.64 K/uL (1.4-6.5); Neutrophils % (auto) 73.4 %; Platelet Count 393 K/uL (130-400); RDW Coefficient of Variation 15.6 % (11.5-14.5); RDW Standard Deviation 52.4 fL (36.4-46.3); Red Blood Count 3.42 M/uL (4.2-5.4); White Blood Count 13.14 K/uL (4.8-10.8)
[2019-12-08 09:18] LABS: Calcium 10.7 mg/dl (8.5-10.1); Est GFR (African American) 89.6; Est GFR (Non-African American) 77.3; Potassium 4.1 mmol/L (3.5-5.1)
[2019-12-08] MEDS: FLUTICASONE/VILANTEROL 100/25MCG 14 PUFFS/INHALER INH SCH (09:40)
[2019-12-08] MEDS: UMECLIDINIUM BROMIDE 62.5MCG/BLISTER 7 PUFFS/INHALER INH SCH (09:41)
[2019-12-08] MEDS: SIMETHICONE 80 MG CHEW PO PRN (09:42)
[2019-12-08] MEDS: NYSTATIN POWDER 15GM BTL EXT SCH ×2 (09:43→21:05)
[2019-12-08] MEDS: GABAPENTIN 300 MG CAP PO SCH ×3 (09:44→21:05)
[2019-12-08] MEDS: BUMETANIDE 1 MG TAB PO SCH ×2 (09:45→16:15)
[2019-12-08] MEDS: PANTOprazole 40 MG TAB PO SCH (09:46)
[2019-12-08] MEDS: INSULIN ASPART 100 UNITS/ML 3 ML PEN SC SCH ×4 (09:48→21:07)
[2019-12-08] MEDS: INSULIN HUMAN NPH SC SCH ×2 (09:48→17:46)
[2019-12-08] MEDS: OXYCODONE HCL IR 5 MG TAB (IMMEDIATE RELEASE) PO SCH ×4 (10:12→21:05)
[2019-12-08] MEDS: DOCUSATE SODIUM/SENNA 50/8.6MG TAB PO SCH ×2 (11:21→21:05)
[2019-12-08] MEDS: BISMUTH SUBSALICYLATE SUSP PO PRN (11:22)
--- NOTE | 2019-12-08 11:31 | Family Medicine Progress Note ---
Date of Service December 08, 2019 Assessment & Plan (1) Decubital ulcer: Ms. Ayoub is a 64 year old female with a past medical history of CKD, DM2, morbid obesity with bedbound status and chronic Barboza, sacral decubitus ulcers, anemia of chronic disease admitted 11/09 for worsening R gluteal infe ction, started on Unasyn and debrided 11/15. 11/28 had a wound culture which grew Pseudomonas, Proteus, and Klebsiella and was started on imipenem/cilastatin. With further worsening of her decubitus ulcerations this admission, and s/p surgical debridement. Sepsis 2/2 infected sacral decubitus and thigh wounds: - From cellulitis from sacral and thigh wounds. - Recent wound culture grew Pseudomonas, Proteus, and Klebsiella. - Had sacral decubitus and thigh debridement on both 11/15 and 12/03 w/Dr. Kay. - Per prior notes may require plastic surgery for wound flap if extensive enough tissue removal however patient compliance could be an issue. - Frequent turning to prevent further tissue breakdown. Pt was refusing to be turned, is more amenable with morphine administration prior. - Wound care following -> wound vac in place - Continue imipenem/cilastatin, started this Abx on 11/30. Will continue for 7 more days for a total of 14 days of abx - For likely SNF vs. LTAC following discharge, will need COVID 19 testing before placement. Will work with Case Management toward placement. Hypercalcemia - calcium 10.7 on AM labs, corrected to 12.4 for low albumin - ?concern for potential osteomyelitis given how extensive her sacral decubitus ulcer is - ESR and CRP elevated on arrival - will recheck to ensure downtrending DM2: - Last Hgb A1c 6.5 on U500 insulin pump. - Insulin titration per pharmacy: - Resume U-500 insulin pump upon patient discharge. If SNF and patient prefer, could discharge on basal-bolus just while at SNF, then transition back to U-500 pump upon discharge from SNF. Chronic respiratory failure, multifactorial (COPD, ZACKARY, obesity hypoventilation syndrome): - currently at baseline O2 requirement of 3LNC. - Nocturnal pulse ox showed patient had SpO2 drop to ~40% for about 2 minutes while sleeping, despite being on 3LNC. - patient refused BiPAP - she was made aware that having an oxygen level that low from not wearing BiPAP can cause things as significant as cardiac arrest, still declines. - Continue home Wixela, Spiriva. - Increased oxygen to 5LNC at night. Hx recurrent UTI with chronic indwelling Barboza catheter: - Pt without urinary signs or symptoms. - barboza catheter leaking -> resolved w/changing catheter and inflating balloon to 30cc Chronic pain syndrome: - Continue home meds, continue IV morphine PRN pain before rolling. - Consulted Palliative Care for pain management and goals of care: - attempted to change 20mg QID oxycodone IR to oxycodone ER 40mg BID, but patient was resistant to changes in her meds Anemia: - Has a history of iron deficiency and anemia of chronic disease, with levels as low as 6 this admission. Baseline 8-9. - Was transfused 2u PRBCs with return to baseline Hgb levels early in her admission. - No signs or symptoms of active bleeding. At baseline Hgb. Continue to monitor. - Continue iron and B12 supplementation. Hypertension/Non-obstructive CAD - BP normotensive to hypotensive, continue Bumex. - patient's home regimen consists of carvedilol, lisinopril and bumex - ECHO performed in 10/2019 w/EF of 55-60% and mild MR -> per cardiology note in 2014, pt appears to be on bumex for intermittent fluid retention as opposed to CHF -> patient had cardiac cath in 2009 in [place] which revealed mild nonobstructive CAD - unclear indication for carvedilol, will hold at this time given patient is normotensive - will start home lisinopril at 2.5mg (home dose is 5mg) for renal protective effects given pt is diabetic. Adjust as needed Hyperlipidemia - continue home atorvastatin Hypothyroidism: - Patient's last TSH 2.11 in February 2019. - Continue home levothyroxine 88mcg daily. Code Status: FULL CODE, pt is thinking about her code status but at this time will defer to admission wants/needs. FEN/GI: DM2 diet DVT ppx: Heparin 5000u SQ q8h Dispo: remains on Med/Surg. Pending placement. (2) Deep tissue injury: (3) CAD (coronary artery disease): (4) Anemia: (5) Chronic indwelling Barboza catheter: (6) Chronic respiratory failure with hypoxia and hypercapnia: (7) Hypertension: (8) ZACKARY (obstructive sleep apnea): (9) DM II (diabetes mellitus, type II), controlled: (10) COPD (chronic obstructive pulmonary disease): (11) Hypothyroid: (12) Sepsis: Admission and Anticipated Discharge Date Admission Date: November 10, 2019 Supervising Physician Co-Signing Physician Notes I personally examined the patient and verified all song points of history and exam, discussed case, and agree with decision making with Dr. Mauricio with the following additions/exceptions: Patient complaining of spasms in her bladder after having larger Barboza catheter bulb inserted to 30 mL's, but is happy that her urine is no longer leaking Otherwise, states she does not want to talk about placement and she is leaving that up to her daughter. Vitals reviewed Morbidly obese, NAD, AAOx3 Regular rate and rhythm, no murmurs gallops or rubs Lungs clear to auscultation bilaterally but diminished throughout due to body habitus EXT trace pitting edema 64 yo female with a h/o CAD, fatty liver, HTN, morbid obesity, DMII, HTN, HL, chronic Barboza, bedbound status, here with worsening very large sacral decubitus ulcers with multiple organisms growing out. Has only now been on appropriate abx with Imipenem since 11/30. Had debridement on 11/15 Now status post repeat debridement again on 12/03 Appreciate general surgery and wound care management- Wound Vac now in place and will need continued management -consideration is being made for LTAC given her very complex care managing these extremely large open wounds, morbid obesity, IV pain medicine requirement, and profound hypoxia and diabetes with massive amounts of insulin required which are changing daily If continues to have bladder spasms, consider removing 5 mL's from the Barboza bulb Awaiting placement options Subjective Ms. Ayoub reports no new changes today. She is frustrated by the fact that her barboza catheter is leaking, and states this does not normally happen at home. She states she has been able to be turned with the use of morphine beforehand. Review of Systems Constitutional: no fever and no chills Respiratory: no cough Cardiovascular: no chest pain Gastrointestinal: no abdominal pain and no vomiting Physical Exam Constitutional: + morbidly obese and cooperative; no acute distress Respiratory: normal respiratory effort, lungs clear to auscultation Cardiovascular: Rate/Rhythm: regular rate and regular rhythm Gastrointestinal (Abdomen): Percussion/Palpation: abdomen soft; abdomen nontender Skin: + wound vac in place over buttocks Results & Data ([facility]) Vital Signs (Past 12 Hours) Vital Signs Temp Pulse Resp BP Pulse Ox 12/08/19 07:15 36.8 C 84 18 153/72 H 100 Resident Activity Tracking Resident Involvement: Resident Care Provided Care Provided: Adult [facility] Medicine (1) Hypothyroid Hypothyroidism type: unspecified Qualified Code(s): E03.9 - Hypothyroidism, unspecified (2) DM II (diabetes mellitus, type II), controlled Diabetes mellitus complication detail: with other kidney complication Diabetes mellitus complication status: with kidney complications 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
[2019-12-08] MEDS: FERROUS SULFATE 325 MG TAB PO SCH (13:30)
[2019-12-08] MEDS: MAGNESIUM OXIDE 400 MG TAB PO SCH (13:30)
[2019-12-08] MEDS: ZINC SULFATE 220 MG CAPSULE PO SCH (13:30)
--- NOTE | 2019-12-08 19:01 | Billing Data ---
Date of Service December 08, 2019 Coding Level of Care Code 50291 Subseq Hosp Care Lvl 2
[2019-12-08] MEDS: ATORVASTATIN 10 MG TAB PO SCH (21:05)
[2019-12-08] MEDS: OMEGA-3 (PURIFIED FISH OIL) 1 GM CAP PO SCH (21:05)
[2019-12-08 22:32] LABS: Appearance Urine Cloudy (Clear); Bilirubin Urine Negative (Negative); Blood Urine 2+ (Negative); Color Urine Yellow; Glucose Urine UA Negative (Negative); Ketones Urine Negative (Negative); Leukocyte Esterase Urine 3+ (Negative); Nitrite Urine Negative (Negative); Protein Urine Negative (Negative); Specific Gravity Urine 1.015 (1.000-1.030); Urobilinogen Urine Negative (Negative); pH Urine 5.5 (4.5-7.5)
[2019-12-08 22:38] LABS: Bacteria Urine 1+ (Negative); Epithelial Cell Urine >30 /lpf (0-5); WBC Urine >30 /hpf (0-5)
[2019-12-09] MEDS: MoRPHine SULFATE 2 MG/ML CARP IV PRN ×7 (00:11→18:26)
[2019-12-09] MEDS: IMIPENEM/CILASTATIN SODIUM 500 MG in DEXTROSE 5% 100 ML IV SCH ×4 (03:37→21:08)
[2019-12-09 05:35] LABS: Hematocrit (blood only) 30.1 % (37-47); Hemoglobin 9.2 g/dL (12.0-16.0); Mean Corpuscular Hgb Conc 30.6 g/dL (32-36); Mean Corpuscular Volume 91.5 fL (80-100); Mean Platelet Volume 8.8 fL (7.4-10.4); Platelet Count 412 K/uL (130-400); RDW Coefficient of Variation 15.6 % (11.5-14.5); RDW Standard Deviation 52.1 fL (36.4-46.3); Red Blood Count 3.29 M/uL (4.2-5.4); White Blood Count 13.48 K/uL (4.8-10.8)
[2019-12-09 06:02] LABS: Basophils # (auto) 0.09 K/uL (0-0.2); Basophils % (auto) 0.7 %; Eosinophils # (auto) 0.43 K/uL (0-0.5); Eosinophils % (auto) 3.2 %; Immature Granulocytes # (auto) 0.74 K/uL (0.00-0.02); Immature Granulocytes % (auto) 5.5 %; Lymphocytes # (auto) 1.47 K/uL (1.2-3.4); Lymphocytes % (auto) 10.9 %; Monocytes # (auto) 0.96 K/uL (0.11-0.59); Monocytes % (auto) 7.1 %; Neutrophils # (auto) 9.79 K/uL (1.4-6.5); Neutrophils % (auto) 72.6 %
[2019-12-09 06:10] LABS: BUN Creatinine Ratio 30.7 (10-20); C Reactive Protein 2.23 mg/dl (0-0.29); Calcium 10.2 mg/dl (8.5-10.1); Creatinine Clr Calc Pharmacy 95.1 ml/min; Est GFR (African American) 76.8; Est GFR (Non-African American) 66.3; Potassium 4.4 mmol/L (3.5-5.1)
[2019-12-09 06:11] LABS: Phosphorus 2.8 mg/dl (2.5-4.9)
[2019-12-09] MEDS: LEVOTHYROXINE SODIUM 88 MCG TABLET PO SCH (06:13)
[2019-12-09] MEDS: HEPARIN SOD 5,000 UNIT/0.5 ML VIAL SQ SCH ×3 (06:13→21:07)
[2019-12-09] MEDS: ONDANSETRON INJ 2 MG/ML 2 ML VIAL IV PRN ×3 (07:00→21:30)
--- NOTE | 2019-12-09 07:18 | Family Medicine Progress Note ---
Date of Service December 09, 2019 Assessment & Plan (1) Decubital ulcer: Ms. Ayoub is a 64 year old female with a past medical history of CKD, DM2, morbid obesity with bedbound status and chronic Barboza, sacral decubitus ulcers, anemia of chronic disease admitted 11/09 for worsening R gluteal infe ction, started on Unasyn and debrided 11/15. 11/28 had a wound culture which grew Pseudomonas, Proteus, and Klebsiella and was started on imipenem/cilastatin. With further worsening of her decubitus ulcerations this admission, and s/p surgical debridement. Sepsis 2/2 infected sacral decubitus and thigh wounds: - From cellulitis from sacral and thigh wounds. - Recent wound culture grew Pseudomonas, Proteus, and Klebsiella. - Had sacral decubitus and thigh debridement on both 11/15 and 12/03 w/Dr. Kay. - Per prior notes may require plastic surgery for wound flap if extensive enough tissue removal however patient compliance could be an issue. - Frequent turning to prevent further tissue breakdown. Pt was refusing to be turned, is more amenable with morphine administration prior. - Wound care following -> wound vac in place - Continue imipenem/cilastatin, started this Abx on 11/30. Will continue a total of 14 days of abx - For likely SNF vs. LTAC following discharge, will need COVID 19 testing before placement. Will work with Case Management toward placement. Hypercalcemia - calcium has been elevated on AM labs, corrected to approx 12.4 for low albumin - normal phosphorous, Vit D and PTH levels indicating less likely to be 2/2 to endocrine related pathology - concern for potential osteomyelitis however per operative notes, decubitus ulcer extends into fat, but no evidence of bony involvement. Also less likely given negative bcx and downtrending CRP from admission - CRP 4.7 down to 2.2, ESR values similar, 85 -> 88 - will trend inflammatory markers. WCC and platelets also slightly elevated today. If these continue to increase, consider additional imaging to rule out osteomyelitis DM2: - Last Hgb A1c 6.5 on U500 insulin pump. - Insulin titration per pharmacy: - Resume U-500 insulin pump upon patient discharge. If SNF and patient prefer, could discharge on basal-bolus just while at SNF, then transition back to U-500 pump upon discharge from SNF. Chronic respiratory failure, multifactorial (COPD, ZACKARY, obesity hypoventilation syndrome): - currently at baseline O2 requirement of 3LNC. - Nocturnal pulse ox showed patient had SpO2 drop to ~40% for about 2 minutes while sleeping, despite being on 3LNC. - patient refused BiPAP - she was made aware that having an oxygen level that low from not wearing BiPAP can cause things as significant as cardiac arrest, still declines. - Continue home Wixela, Spiriva. - Increased oxygen to 5LNC at night. Hx recurrent UTI with chronic indwelling Barboza catheter: - barboza catheter was leaking and required several changes -> resolved w/changing catheter and inflating balloon to 30cc on 12/07 - Pt now reporting discomfort at catheter site, ddx: secondary to mechanical trauma w/repeated barboza changes, due to UTI, or due to inflating balloon to 30cc - patient not currently reporting bladder spasms -> can try decreasing balloon inflation by 5cc if these return - UA positive -> Ucx pending. Will not alter abx until results return. May require antifungal given presence of yeast on UA Chronic pain syndrome: - Continue home meds, continue IV morphine PRN pain before rolling. - Consulted Palliative Care for pain management and goals of care: - attempted to change 20mg QID oxycodone IR to oxycodone ER 40mg BID, but patient was resistant to changes in her meds Constipation -patient reports significant constipation, last BM 4 days ago -likely secondary to opioid usage and sedentary lifestyle -patient taking senna daily, also received prn milk of mag this AM - will also change regimen to include scheduled colace and miralax Anemia: - Has a history of iron deficiency and anemia of chronic disease, with levels as low as 6 this admission. Baseline 8-9. - Was transfused 2u PRBCs with return to baseline Hgb levels early in her admission. - No signs or symptoms of active bleeding. At baseline Hgb. Continue to monitor. - Continue iron and B12 supplementation. Hypertension/Non-obstructive CAD - BP normotensive to hypotensive, continue Bumex. - patient's home regimen consists of carvedilol, lisinopril and bumex - ECHO performed in 10/2019 w/EF of 55-60% and mild MR -> per cardiology note in 2014, pt appears to be on bumex for intermittent fluid retention as opposed to CHF -> patient had cardiac cath in 2009 in [place] which revealed mild nonobstructive CAD - unclear indication for carvedilol, will hold at this time given patient is normotensive - will start home lisinopril at 2.5mg (home dose is 5mg) for renal protective effects given pt is diabetic. Adjust as needed Hyperlipidemia - continue home atorvastatin Hypothyroidism: - Patient's last TSH 2.11 in February 2019. - Continue home levothyroxine 88mcg daily. Code Status: FULL CODE FEN/GI: DM2 diet DVT ppx: Heparin 5000u SQ q8h Dispo: remains on Med/Surg. Pending placement. (2) Deep tissue injury: (3) CAD (coronary artery disease): (4) Anemia: (5) Chronic indwelling Barboza catheter: (6) Chronic respiratory failure with hypoxia and hypercapnia: (7) Hypertension: (8) ZACKARY (obstructive sleep apnea): (9) DM II (diabetes mellitus, type II), controlled: (10) COPD (chronic obstructive pulmonary disease): (11) Hypothyroid: (12) Sepsis: Admission and Anticipated Discharge Date Admission Date: November 10, 2019 Supervising Physician Co-Signing Physician Notes I personally examined the patient and verified all song points of history and exam, discussed case, and agree with decision making with Dr. Mauricio with the following additions/exceptions: Pt says she is tired and just wants to sleep. Also c/o constipation and some abd discomfort, took MOM and is hoping ot have a BM soon. Otherwise doesn't want to talk about anything else Says "Don't talk to me about kicking me out of here yet." Vitals reviewed Morbidly obese, NAD Breathing unlabored 64 yo female with a h/o CAD, fatty liver, HTN, morbid obesity, DMII, HTN, HL, chronic Barboza, bedbound status, here with worsening very large sacral decubitus ulcers with multiple organisms growing out. Has only now been on appropriate abx with Imipenem since 11/30. Had debridement on 11/15 Now status post repeat debridement again on 12/03 Appreciate general surgery and wound care management- Wound Vac now in place and will need continued management -consideration is being made for LTAC given her very complex care managing these extremely large open wounds, morbid obesity, IV pain medicine requirement, and profound hypoxia and diabetes with massive amounts of insulin required which are changing daily Working on constipation today All other issues outlined in plan as above Awaiting placement options-best option would be [facility] [place]-defer to daughter for placement decisions as per patient Subjective Ms. Ayoub reports she does not feel well today. She states she has not had a BM in 4 days, and is extremely uncomfortable due to this. She also reports she had a couple of episodes of pain and irritation at her barboza catheter site. She states she is not currently experiencing that now. She is anxious about the possibility of having her catheter manipulated. She remains w/bilateral neuropathic pain in her LE. Review of Systems Constitutional: no fever and no chills Respiratory: no cough Cardiovascular: no chest pain Gastrointestinal: + constipation Physical Exam Constitutional: + morbidly obese and cooperative Respiratory: normal respiratory effort, lungs clear to auscultation Cardiovascular: Rate/Rhythm: regular rate and regular rhythm Gastrointestinal (Abdomen): abdomen soft, tender to palpation throughout Skin: chronic venous stasis changes in b/l LE Results & Data ([facility]) Vital Signs (Past 12 Hours) Vital Signs Temp Pulse Resp BP Pulse Ox 12/08/19 23:01 36.8 C 81 16 99/63 L 100 Resident Activity Tracking Resident Involvement: Resident Care Provided Care Provided: Adult Hospital Medicine (1) Hypothyroid Hypothyroidism type: unspecified Qualified Code(s): E03.9 - Hypothyroidism, unspecified (2) DM II (diabetes mellitus, type II), controlled Diabetes mellitus complication detail: with other kidney complication Diabetes mellitus complication status: with kidney complications Diabetes mellitus detention insulin use: with detention use Qualified Code(s): E11.29 - Type 2 diabetes mellitus with other diabetic kidney complication; Z79.4 - [facility] (current) use of insulin (3) COPD (chronic obstructive pulmonary disease) COPD type: unspecified COPD Qualified Code(s): J44.9 - Chronic obstructive pulmonary disease, unspecified (4) Hypertension Hypertension type: essential hypertension Qualified Code(s): I10 - Essential (primary) hypertension
[2019-12-09] MEDS: UMECLIDINIUM BROMIDE 62.5MCG/BLISTER 7 PUFFS/INHALER INH SCH (09:14)
[2019-12-09] MEDS: NYSTATIN POWDER 15GM BTL EXT SCH ×2 (09:15→21:13)
[2019-12-09] MEDS: FLUTICASONE/VILANTEROL 100/25MCG 14 PUFFS/INHALER INH SCH (09:15)
[2019-12-09] MEDS: PANTOprazole 40 MG TAB PO SCH (09:15)
[2019-12-09] MEDS: GABAPENTIN 300 MG CAP PO SCH ×3 (09:17→21:07)
[2019-12-09] MEDS: BUMETANIDE 1 MG TAB PO SCH ×2 (09:19→17:02)
[2019-12-09] MEDS: BISMUTH SUBSALICYLATE SUSP PO PRN (09:20)
[2019-12-09] MEDS: INSULIN HUMAN NPH SC SCH ×3 (09:22→23:42)
[2019-12-09] MEDS: INSULIN ASPART 100 UNITS/ML 3 ML PEN SC SCH ×4 (09:38→21:08)
[2019-12-09] MEDS: OXYCODONE HCL IR 5 MG TAB (IMMEDIATE RELEASE) PO SCH ×4 (09:39→21:07)
[2019-12-09] MEDS: DOCUSATE SODIUM/SENNA 50/8.6MG TAB PO SCH ×2 (09:41→21:30)
[2019-12-09] MEDS: MAGNESIUM HYDROXIDE SUSP 30 ML UDC PO PRN (10:36)
[2019-12-09] MEDS: ACETAMINOPHEN 325 MG TAB PO PRN (11:49)
[2019-12-09] MEDS: POLYETHYLENE (MIRALAX) 17 GM PACK PO SCH (11:49)
[2019-12-09] MEDS: DOCUSATE SODIUM 100 MG CAP PO SCH ×2 (13:08→21:06)
[2019-12-09] MEDS: MAGNESIUM OXIDE 400 MG TAB PO SCH (13:08)
[2019-12-09] MEDS: FERROUS SULFATE 325 MG TAB PO SCH (13:09)
[2019-12-09] MEDS: ZINC SULFATE 220 MG CAPSULE PO SCH (13:09)
--- NOTE | 2019-12-09 16:11 | Billing Data ---
Date of Service December 09, 2019 Coding Level of Care Code 55537 Subseq Hosp Care Lvl 2
[2019-12-09] MEDS: LIDOCAINE 2% JELLY 5 ML TUBE EXT PRN (18:00)
[2019-12-09] MEDS: ATORVASTATIN 10 MG TAB PO SCH (22:09)
[2019-12-09] MEDS: OMEGA-3 (PURIFIED FISH OIL) 1 GM CAP PO SCH (22:10)
[2019-12-10] MEDS: MoRPHine SULFATE 2 MG/ML CARP IV PRN ×7 (00:12→22:45)
[2019-12-10] MEDS: ACETAMINOPHEN 325 MG TAB PO PRN ×4 (00:59→19:21)
[2019-12-10] MEDS: IMIPENEM/CILASTATIN SODIUM 500 MG in DEXTROSE 5% 100 ML IV SCH ×4 (04:40→21:39)
[2019-12-10] MEDS: LIDOCAINE 2% JELLY 5 ML TUBE EXT PRN (04:44)
[2019-12-10] MEDS: LEVOTHYROXINE SODIUM 88 MCG TABLET PO SCH (05:42)
[2019-12-10] MEDS: HEPARIN SOD 5,000 UNIT/0.5 ML VIAL SQ SCH ×3 (05:43→21:38)
[2019-12-10 06:11] LABS: Hematocrit (blood only) 30.3 % (37-47); Hemoglobin 9.1 g/dL (12.0-16.0); Mean Corpuscular Hemoglobin 27.7 pg (25-34); Mean Corpuscular Volume 92.1 fL (80-100); Mean Platelet Volume 8.6 fL (7.4-10.4); Platelet Count 397 K/uL (130-400); RDW Coefficient of Variation 15.8 % (11.5-14.5); RDW Standard Deviation 52.9 fL (36.4-46.3); Red Blood Count 3.29 M/uL (4.2-5.4); White Blood Count 14.49 K/uL (4.8-10.8)
[2019-12-10 06:35] LABS: BUN Creatinine Ratio 30.6 (10-20); Calcium 10.1 mg/dl (8.5-10.1); Creatinine Clr Calc Pharmacy 94.1 ml/min; Est GFR (African American) 75.8; Est GFR (Non-African American) 65.4; Potassium 4.2 mmol/L (3.5-5.1)
[2019-12-10 06:38] LABS: Basophils # (auto) 0.08 K/uL (0-0.2); Basophils % (auto) 0.6 %; C Reactive Protein 1.85 mg/dl (0-0.29); Eosinophils # (auto) 0.36 K/uL (0-0.5); Eosinophils % (auto) 2.5 %; Immature Granulocytes # (auto) 0.75 K/uL (0.00-0.02); Immature Granulocytes % (auto) 5.2 %; Lymphocytes # (auto) 1.52 K/uL (1.2-3.4); Lymphocytes % (auto) 10.5 %; Monocytes # (auto) 1.04 K/uL (0.11-0.59); Monocytes % (auto) 7.2 %; Neutrophils # (auto) 10.74 K/uL (1.4-6.5)
[2019-12-10 08:18] LABS: Alanine Aminotransferase 13 U/L (12-78); Albumin Level 2.5 gm/dl (3.4-5.0); Alkaline Phosphatase 95 U/L (45-117); Aspartate Aminotransferase 13 U/L (15-37); Bilirubin Direct < 0.1 mg/dl (0-0.2); Bilirubin,Total 0.3 mg/dl (0.2-1); Total Protein 6.9 gm/dl (6.4-8.2)
[2019-12-10] MEDS: ONDANSETRON INJ 2 MG/ML 2 ML VIAL IV PRN ×2 (08:34→17:19)
[2019-12-10] MEDS: INSULIN ASPART 100 UNITS/ML 3 ML PEN SC SCH ×4 (08:42→21:39)
[2019-12-10] MEDS: INSULIN HUMAN NPH SC SCH ×2 (08:44→17:03)
[2019-12-10] MEDS: UMECLIDINIUM BROMIDE 62.5MCG/BLISTER 7 PUFFS/INHALER INH SCH (08:47)
[2019-12-10] MEDS: FLUTICASONE/VILANTEROL 100/25MCG 14 PUFFS/INHALER INH SCH (08:47)
[2019-12-10] MEDS: DOCUSATE SODIUM 100 MG CAP PO SCH ×2 (08:48→21:38)
[2019-12-10] MEDS: POLYETHYLENE (MIRALAX) 17 GM PACK PO SCH ×2 (08:50→11:17)
[2019-12-10] MEDS: PANTOprazole 40 MG TAB PO SCH (08:50)
[2019-12-10] MEDS: BUMETANIDE 1 MG TAB PO SCH ×2 (08:51→16:54)
[2019-12-10] MEDS: NYSTATIN POWDER 15GM BTL EXT SCH (08:52)
[2019-12-10] MEDS: GABAPENTIN 300 MG CAP PO SCH ×2 (09:01→13:45)
[2019-12-10] MEDS: OXYCODONE HCL IR 5 MG TAB (IMMEDIATE RELEASE) PO SCH ×4 (09:01→21:38)
--- NOTE | 2019-12-10 09:09 | Pharmacy Report ---
Pharmacy Glycemic Short Note 2 - Date of Service December 10, 2019 - Glycemic Short BSG Results (Last 24 hours): 12/09/19 12/09/19 12/09/19 12:05 16:52 20:45 Glucose POC Glucose 205 H 164 H 174 H 12/10/19 12/10/19 05:53 08:19 Glucose 167 H POC Glucose 161 H OUTPATIENT ANTIDIABETIC REGIMEN: * U500 insulin pump (upwards of 350 units/day) * A1c = 6.5% on 11/11/2019 ASSESSMENT: * Ms. Ayoub received 203 units of insulin yesterday: * 140 units NPH * 63 unit Novolog * BSGs ranged from 164-212 mg/dL * NPH increased on 12/08 due to fasting BSG trending upward (12/05-12/08: 149, 152, 168, 177 mg/dL) * Postprandial BSGs all above goal - will tighten prandial coverage PLAN FOR INPATIENT GLYCEMIC CONTROL: * Basal insulin * NPH 70 units BIDM * Bolus insulin - tighten CR * NovoLog per scale ACHS or Q6hrs while NPO * Goal Range: Low 110 mg/dL - High 140 mg/dL * Correction Factor: 5 mg/dL/unit * Carb ratio: 1 unit for every 2 grams CHO consumed PLAN FOR DISCHARGE: * A1c = 6.5 %(11/11/19). This indicates adequate outpatient glycemic control * Resume U-500 insulin pump upon patient discharge. If SNF and patient prefer, could discharge on basal-bolus just while at SNF, then transition back to U- 500 pump upon discharge from SNF.
[2019-12-10] MEDS: DOCUSATE SODIUM/SENNA 50/8.6MG TAB PO SCH ×2 (09:24→21:39)
--- NOTE | 2019-12-10 09:53 | Family Medicine Progress Note ---
Date of Service December 10, 2019 Assessment & Plan (1) Decubital ulcer: Ms. Ayoub is a 64 year old female with a past medical history of CKD, DM2, morbid obesity with bedbound status and chronic Garcia, sacral decubitus ulcers, anemia of chronic disease admitted 11/09 for worsening R gluteal infe ction, started on Unasyn and debrided 11/15. 11/28 had a wound culture which grew Pseudomonas, Proteus, and Klebsiella and was started on imipenem/cilastatin. Admitted for worsening of her decubitus ulcerations this admission, and s/p surgical debridement x2. Now with clinical improvement of wounds and awaiting placement. Sepsis 2/2 infected sacral decubitus and thigh wounds: - From cellulitis from sacral and thigh wounds. - Recent wound culture grew Pseudomonas, Proteus, and Klebsiella. - Had sacral decubitus and thigh debridement on both 11/15 and 12/03 w/Dr. Kay. - Per prior notes may require plastic surgery for wound flap if extensive enough tissue removal however patient compliance could be an issue. - Frequent turning to prevent further tissue breakdown. Pt was refusing to be turned intermittently, is more amenable with morphine administration prior. - Wound care following -> wound vac in place, to be replaced tomorrow. Per notes wounds are improving. - Continue imipenem/cilastatin, started this Abx on 11/30. Will continue a total of 14 days of abx. - For likely LTAC following discharge given significant acute care needs, COVID 19 testing negative 12/01. Will continue to work with Case Management toward placement. Hypercalcemia - Calcium has been elevated on AM labs, corrected to approx 12.4 for low albumin on 12/07 however this was with albumin from 11/09. - Normal phosphorous, Vit D and PTH levels indicating less likely to be 2/2 to endocrine related pathology. - There was concern for potential osteomyelitis however per operative notes, decubitus ulcer extends into fat, but no evidence of bony involvement. Also less likely given negative BCx and downtrending CRP from admission. - CRP 4.7 down to 1.85, ESR values similar, 85 -> 90. - Calcium today corrected for albumin also collected today is 11.3; minimally elevated. - No need for repeat imaging to assess for osteomyelitis at this time however should patient's WBC uptrend suddenly despite significant Abx therapy could consider repeating. DM2: - Last Hgb A1c 6.5 on U500 insulin pump. - Insulin titration per pharmacy: - Resume U-500 insulin pump upon patient discharge. If SNF and patient prefer, could discharge on basal-bolus just while at SNF, then transition back to U-500 pump upon discharge from LTAC/SNF. Chronic respiratory failure, multifactorial (COPD, ZACKARY, obesity hypoventilation syndrome): - Currently at baseline O2 requirement of 3LNC. - Nocturnal pulse ox showed patient had SpO2 drop to ~40% for about 2 minutes while sleeping, despite being on 3LNC. - Patient refused BiPAP - she was made aware that having an oxygen level that low from not wearing BiPAP can cause things as significant as cardiac arrest, still declines. - Continue home Wixela, Spiriva. - Increased oxygen to 5LNC at night. Likely patient will obstruct despite this however pt feels more comfortable on more oxygen at night. Hx recurrent UTI with chronic indwelling Garcia catheter: - Garcia catheter was leaking last week and required several changes -> resolved w/changing catheter and inflating balloon to 30cc on 12/07. - Pt now reporting discomfort at catheter site, ddx: secondary to mechanical trauma w/repeated Garcia changes vs. UTI, vs. inflating balloon to 30cc. - Patient not currently reporting bladder spasms -> can try decreasing balloon inflation by 5cc if these return. - UA positive for 1+ bacteria, no nitrites positive LE, yeast -> UCx collected but multimicrobial and unable to differentiate, recommended repeat UCx. Repeat UCx pending. Will not alter Abx until results return. May require antifungal given presence of yeast on UA. Chronic pain syndrome: - Continue home meds, continue IV morphine PRN pain before rolling. - Consulted Palliative Care for pain management and goals of care: - Attempted to change 20mg QID oxycodone IR to oxycodone ER 40mg BID, but patient was resistant to changes in her meds. Constipation - Patient reported significant constipation yesterday, last BM 4 days ago. -> Likely secondary to opioid usage and sedentary lifestyle. -> Patient receiving Senna, Colace, Miralax with one hard BM overnight. Will not adjust medications at this time as pt does not want increases due to concern for diarrhea. -> No abdominal discomfort this AM. Anemia: - Has a history of iron deficiency and anemia of chronic disease, with levels as low as 6 this admission. Baseline 8-9. - Was transfused 2u PRBCs with return to baseline Hgb levels early in her admission. - No signs or symptoms of active bleeding. At baseline Hgb. Continue to monitor. - Continue iron and B12 supplementation. Hypertension/Non-obstructive CAD - BP normotensive to hypotensive, continue Bumex. - Patient's home regimen consists of carvedilol, lisinopril and Bumex. - ECHO performed in 10/2019 w/EF of 55-60% and mild MR. -> Per cardiology note in 2014, pt appears to be on Bumex for intermittent fluid retention as opposed to CHF. -> Patient had cardiac cath in 2009 in [place] which revealed mild nonobstructive CAD. - Unclear indication for carvedilol, will hold at this time given patient is normotensive. - Home lisinopril 2.5mg (home dose is 5mg) started for renal protective effects given pt is diabetic. Adjust as needed. Hyperlipidemia - Continue home atorvastatin. Hypothyroidism: - Patient's last TSH 2.11 in February 2019. - Continue home levothyroxine 88mcg daily. Code Status: FULL CODE FEN/GI: DM2 diet DVT ppx: Heparin 5000u SQ q8h Dispo: Med/Surg. Pending placement. (2) Deep tissue injury: (3) CAD (coronary artery disease): (4) Anemia: (5) Chronic indwelling Garcia catheter: (6) Chronic respiratory failure with hypoxia and hypercapnia: (7) Hypertension: (8) ZACKARY (obstructive sleep apnea): (9) DM II (diabetes mellitus, type II), controlled: (10) COPD (chronic obstructive pulmonary disease): (11) Hypothyroid: - Patient's last TSH - Continue home levothyroxine 88mcg daily. (12) Sepsis: Admission and Anticipated Discharge Date Admission Date: November 10, 2019 Supervising Physician Co-Signing Physician Notes Patient seen and examined with Dr. Massey. I agree with her exam findings, review of systems, assessment and plan. I have personally reviewed the lab work and imaging from today. patient doing well, pain is controlled, eating well, breathing stable discussed potential for transfer to LTACH, she feels like she could get the same care at SNF with outpatient wound clinic I discussed with her that LTACH would likely give her best chance of recovering from this wound/infection she wants to talk with CM tomorrow I informed her that the decision is hers, however, local SNF might not be w illing to take her, care may be too complicated Exam: morbidly obese, NAD, AAOX3 lungs with decreased sounds in the bases, clear bilaterally, normal effort heart regular S1/S2, distant heart sounds, no murmurs, + edema bilaterally skin: sacral wound and thigh wound posteriorly with wound vac in place abdomen soft, NT, ND, + BS - Sacral decubitus ulcer, posterior thigh wound s/p debridement several times with Dr. Kay, wound vac in place continue on Imipenem for several weeks ideally she should go to LTACH, she is resistant to the idea discuss with CM tomorrow Subjective Pt with some leg pain overnight due to her wounds. She was frustrated this morning with her overnight nursing for turning her "without giving her her as needed pain medication". No nausea or vomiting, no abdominal pain, no fevers or chills. Complains intermittently of irritation of her catheter, feels some pressure sensation. Had a BM this morning which she reports as hard, however she is concerned about taking too much stool softener because of the wounds on her buttocks and legs. Review of Systems 2 Constitutional: no fever and no chills Respiratory: no cough, no dyspnea and no wheezing Cardiovascular: no chest pain, no palpitations and no edema Gastrointestinal: + constipation (Did have BM this AM, reported as hard); no abdominal pain, no nausea and no vomiting Genitourinary: no dysuria and no hematuria discomfort at urethra Physical Exam Constitutional: + morbidly obese; no acute distress Respiratory: normal respiratory effort; no labored breathing and no cough Auscultation: + diminished lung sounds (Bilateral lung bases) Cardiovascular: Rate/Rhythm: regular rate and regular rhythm Gastrointestinal (Abdomen): normal bowel sounds, soft, nontender, no hepatosplenomegaly Skin: chronic venous stasis changes in b/l LE Results & Data ([facility]) Vital Signs (Past 12 Hours) Vital Signs Temp Pulse Resp BP Pulse Ox 12/10/19 07:19 36.7 C 77 16 108/63 100 12/09/19 23:50 36.8 C 85 16 135/78 100 Resident Activity Tracking Resident Involvement: Resident Care Provided Care Provided: Adult [facility] Medicine (1) Hypothyroid Hypothyroidism type: unspecified Qualified Code(s): E03.9 - Hypothyroidism, unspecified (2) DM II (diabetes mellitus, type II), controlled Diabetes mellitus complication detail: with other kidney complication Diabetes mellitus complication status: with kidney complications Diabetes mellitus 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
[2019-12-10] MEDS: FERROUS SULFATE 325 MG TAB PO SCH (12:49)
[2019-12-10] MEDS: MAGNESIUM OXIDE 400 MG TAB PO SCH (12:50)
[2019-12-10] MEDS: ZINC SULFATE 220 MG CAPSULE PO SCH (12:50)
[2019-12-10] MEDS: BISMUTH SUBSALICYLATE SUSP PO PRN ×3 (14:51→22:46)
[2019-12-10] MEDS ORDERED: ATORVASTATIN 10 MG TAB PO SCH (22:16)
--- NOTE | 2019-12-10 22:34 | Billing Data ---
Date of Service December 10, 2019 Coding Level of Care Code 13735 Subseq Hosp Care Lvl 2
[2019-12-11] MEDS: MoRPHine SULFATE 2 MG/ML CARP IV PRN ×9 (00:55→23:03)
[2019-12-11] MEDS: IMIPENEM/CILASTATIN SODIUM 500 MG in DEXTROSE 5% 100 ML IV SCH ×4 (03:08→21:57)
[2019-12-11] MEDS ORDERED: ACETAMINOPHEN 325 MG TAB PO PRN ×2 (05:19→06:43)
[2019-12-11 06:06] LABS: Basophils # (auto) 0.09 K/uL (0-0.2); Basophils % (auto) 0.6 %; Eosinophils # (auto) 0.46 K/uL (0-0.5); Eosinophils % (auto) 3.3 %; Hematocrit (blood only) 29.7 % (37-47); Immature Granulocytes # (auto) 0.64 K/uL (0.00-0.02); Immature Granulocytes % (auto) 4.6 %; Lymphocytes # (auto) 1.88 K/uL (1.2-3.4); Lymphocytes % (auto) 13.5 %; Mean Corpuscular Hemoglobin 27.8 pg (25-34); Mean Corpuscular Hgb Conc 30.3 g/dL (32-36); Mean Corpuscular Volume 91.7 fL (80-100); Mean Platelet Volume 8.8 fL (7.4-10.4); Monocytes % (auto) 5.7 %; Neutrophils # (auto) 10.09 K/uL (1.4-6.5); Neutrophils % (auto) 72.3 %; Platelet Count 386 K/uL (130-400); RDW Coefficient of Variation 15.9 % (11.5-14.5); RDW Standard Deviation 53.2 fL (36.4-46.3); Red Blood Count 3.24 M/uL (4.2-5.4); White Blood Count 13.96 K/uL (4.8-10.8)
[2019-12-11] MEDS: BISMUTH SUBSALICYLATE SUSP PO PRN ×3 (06:17→19:08)
[2019-12-11] MEDS: HEPARIN SOD 5,000 UNIT/0.5 ML VIAL SQ SCH ×3 (06:18→21:50)
[2019-12-11] MEDS ORDERED: LEVOTHYROXINE SODIUM 88 MCG TABLET PO ONE (06:30)
[2019-12-11 06:39] LABS: BUN Creatinine Ratio 34.4 (10-20); Calcium 10.6 mg/dl (8.5-10.1); Creatinine Clr Calc Pharmacy 96.1 ml/min; Est GFR (African American) 77.8; Est GFR (Non-African American) 67.1; Potassium 4.5 mmol/L (3.5-5.1)
[2019-12-11] MEDS ORDERED: ONDANSETRON 4 MG OD TAB PO PRN (06:43)
[2019-12-11] MEDS ORDERED: OXYCODONE HCL IR 5 MG TAB (IMMEDIATE RELEASE) PO PRN (06:43)
[2019-12-11] MEDS ORDERED: CARBOHYDRATES FOR HYPOGLYCEMIA PO PRN ×2 (06:48→06:55)
[2019-12-11] MEDS ORDERED: PHARMACY GLYCEMIC MGMT CONSULT PRN (06:55)
[2019-12-11] MEDS ORDERED: GLUCAGON FOR INJ 1 MG VIAL SQ PRN (06:55)
[2019-12-11] MEDS ORDERED: GLUCOSE 10 TABS/TUBE PO PRN (06:55)
[2019-12-11] MEDS ORDERED: GLUCOSE 40% GEL 15 GM TUBE PO PRN (06:55)
[2019-12-11] MEDS ORDERED: DEXTROSE 50% 50 ML SYRINGE IV PRN (06:55)
[2019-12-11] MEDS ORDERED: SIMETHICONE 80 MG CHEW PO PRN (07:00)
[2019-12-11] MEDS: ONDANSETRON INJ 2 MG/ML 2 ML VIAL IV PRN ×2 (07:27→17:03)
[2019-12-11] MEDS: FLUTICASONE/VILANTEROL 100/25MCG 14 PUFFS/INHALER INH SCH (08:58)
[2019-12-11] MEDS: UMECLIDINIUM BROMIDE 62.5MCG/BLISTER 7 PUFFS/INHALER INH SCH (08:58)
[2019-12-11] MEDS: INSULIN HUMAN NPH SC SCH ×4 (08:59→18:30)
[2019-12-11] MEDS ORDERED: POLYETHYLENE (MIRALAX) 17 GM PACK PO SCH (09:00)
[2019-12-11] MEDS ORDERED: PANTOprazole 40 MG TAB PO SCH (09:00)
[2019-12-11] MEDS ORDERED: GABAPENTIN 300 MG CAP PO SCH (09:00)
[2019-12-11] MEDS: INSULIN ASPART 100 UNITS/ML 3 ML PEN SC SCH ×4 (09:01→21:50)
[2019-12-11] MEDS: POLYETHYLENE (MIRALAX) 17 GM PACK PO SCH (09:02)
[2019-12-11] MEDS: BUMETANIDE 1 MG TAB PO SCH ×2 (09:04→17:22)
[2019-12-11] MEDS: GABAPENTIN 300 MG CAP PO SCH ×3 (09:04→21:48)
[2019-12-11] MEDS: NYSTATIN OINT 15 GM TUBE EXT SCH ×2 (09:05→21:47)
[2019-12-11] MEDS: PANTOprazole 40 MG TAB PO SCH (09:06)
[2019-12-11] MEDS: OXYCODONE HCL IR 5 MG TAB (IMMEDIATE RELEASE) PO SCH ×4 (09:07→21:47)
[2019-12-11] MEDS: DOCUSATE SODIUM 100 MG CAP PO SCH ×2 (09:20→21:48)
[2019-12-11] MEDS: DOCUSATE SODIUM/SENNA 50/8.6MG TAB PO SCH ×2 (09:20→21:48)
[2019-12-11] MEDS: FERROUS SULFATE 325 MG TAB PO SCH (12:15)
[2019-12-11] MEDS: MAGNESIUM OXIDE 400 MG TAB PO SCH (12:16)
[2019-12-11] MEDS: ZINC SULFATE 220 MG CAPSULE PO SCH (12:16)
--- NOTE | 2019-12-11 12:33 | Pharmacy Report ---
Pharmacy Glycemic Short Note 2 - Date of Service December 11, 2019 - Glycemic Short BSG Results (Last 24 hours): OUTPATIENT ANTIDIABETIC REGIMEN: * U500 insulin pump (upwards of 350 units/day) * A1c = 6.5% on 11/11/2019 ASSESSMENT: 12/10: * Ms. Ayoub received 218 units of insulin yesterday: * 140 units NPH * 78 unitS Novolog * BSGs ranged from 133-208 mg/dL * Despite increase in NPH on 12/08, fasting BSGs still remain uncontrolled (12/09- 12/10: 161 & 178 mg/dL) * Will increase NPH by 7% today * Postprandial BSGs improving PLAN FOR INPATIENT GLYCEMIC CONTROL: * Basal insulin - increased * NPH 75 units BIDM * Bolus insulin * NovoLog per scale ACHS or Q6hrs while NPO * Goal Range: Low 110 mg/dL - High 140 mg/dL * Correction Factor: 5 mg/dL/unit * Carb ratio: 1 unit for every 2 grams CHO consumed PLAN FOR DISCHARGE: * A1c = 6.5 %(11/11/19). This indicates adequate outpatient glycemic control * Resume U-500 insulin pump upon patient discharge. If SNF and patient prefer, could discharge on basal-bolus just while at SNF, then transition back to U- 500 pump upon discharge from SNF.
[2019-12-11] MEDS ORDERED: HYDROCORTISONE 2.5% CR 30 GM TUBE EXT PRN (13:19)
--- NOTE | 2019-12-11 14:13 | Family Medicine Progress Note ---
Date of Service December 11, 2019 Assessment & Plan (1) Decubital ulcer: Ms. Ayoub is a 64 year old female with a past medical history of CKD, DM2, morbid obesity with bedbound status and chronic Garcia, sacral decubitus ulcers, anemia of chronic disease admitted 11/09 for worsening R gluteal infe ction, started on Unasyn and debrided 11/15. 11/28 had a wound culture which grew Pseudomonas, Proteus, and Klebsiella and was started on imipenem/cilastatin. Admitted for worsening of her decubitus ulcerations this admission, and s/p surgical debridement x2. Now with clinical improvement of wounds and awaiting placement at likely LTAC. Sepsis 2/2 infected sacral decubitus and thigh wounds: - From cellulitis from sacral and thigh wounds. - Recent wound culture grew Pseudomonas, Proteus, and Klebsiella. - Had sacral decubitus and thigh debridement on both 11/15 and 12/03 w/Dr. Kay. - Per prior notes may require plastic surgery for wound flap if extensive enough tissue removal however patient compliance could be an issue. - Frequent turning to prevent further tissue breakdown. Pt was refusing to be turned intermittently, is more amenable with morphine administration prior. - Wound care following -> wound vac in place, to be replaced tomorrow. Per notes wounds are improving. - Continue imipenem/cilastatin, started this Abx on 11/30. Will continue a total of 14 days of abx. - For likely LTAC following discharge given significant acute care needs, COVID 19 testing negative 12/01. Will continue to work with Case Management toward placement. Hypercalcemia - Calcium has been elevated on AM labs, corrected to approx 12.4 for low albumin on 12/07 however this was with albumin from 11/09. - Normal phosphorous, Vit D and PTH levels indicating less likely to be 2/2 to endocrine related pathology. - There was concern for potential osteomyelitis however per operative notes, decubitus ulcer extends into fat, but no evidence of bony involvement. Also less likely given negative BCx and downtrending CRP from admission. - CRP 4.7 down to 1.85, ESR values similar, 85 -> 90. - Calcium today corrected for albumin also collected today is 11.3; minimally elevated. - No need for repeat imaging to assess for osteomyelitis at this time however should patient's WBC uptrend suddenly despite significant Abx therapy could consider repeating. DM2: - Last Hgb A1c 6.5 on U500 insulin pump. - Insulin titration per pharmacy: - Resume U-500 insulin pump upon patient discharge. If SNF and patient prefer, could discharge on basal-bolus just while at SNF, then transition back to U-500 pump upon discharge from LTAC/SNF. Chronic respiratory failure, multifactorial (COPD, ZACKARY, obesity hypoventilation syndrome): - Currently at baseline O2 requirement of 3LNC. - Nocturnal pulse ox showed patient had SpO2 drop to ~40% for about 2 minutes while sleeping, despite being on 3LNC. - Patient refused BiPAP - she was made aware that having an oxygen level that low from not wearing BiPAP can cause things as significant as cardiac arrest, still declines. - Continue home Wixela, Spiriva. - Increased oxygen to 5LNC at night. Likely patient will obstruct despite this however pt feels more comfortable on more oxygen at night. - Pt is amenable to home nasal CPAP/BiPAP; would need formal sleep study in outpatient setting. Hx recurrent UTI with chronic indwelling Garcia catheter: - Garcia catheter was leaking last week and required several changes -> resolved w/changing catheter and inflating balloon to 30cc on 12/07. - Pt now reporting discomfort at catheter site, ddx: secondary to mechanical trauma w/repeated Garcia changes vs. UTI, vs. inflating balloon to 30cc. - Patient not currently reporting bladder spasms -> can try decreasing balloon inflation by 5cc if these return. - UA positive for 1+ bacteria, no nitrites positive LE, yeast -> UCx collected but multimicrobial and unable to differentiate, recommended repeat UCx. Repeat UCx pending. Will not alter Abx until results return. May require antifungal given presence of yeast on UA. Chronic pain syndrome: - Continue home meds, continue IV morphine PRN pain before rolling. - Consulted Palliative Care for pain management and goals of care: - Attempted to change 20mg QID oxycodone IR to oxycodone ER 40mg BID, but patient was resistant to changes in her meds. Constipation - Patient reported significant constipation yesterday, last BM 4 days ago. -> Likely secondary to opioid usage and sedentary lifestyle. -> Patient receiving Senna, Colace, Miralax with one hard BM overnight. Will not adjust medications at this time as pt does not want increases due to concern for diarrhea. -> No abdominal discomfort this AM. Anemia: - Has a history of iron deficiency and anemia of chronic disease, with levels as low as 6 this admission. Baseline 8-9. - Was transfused 2u PRBCs with return to baseline Hgb levels early in her admission. - No signs or symptoms of active bleeding. At baseline Hgb. Continue to monitor. - Continue iron and B12 supplementation. Hypertension/Non-obstructive CAD - BP normotensive to hypotensive, continue Bumex. - Patient's home regimen consists of carvedilol, lisinopril and Bumex. - ECHO performed in 10/2019 w/EF of 55-60% and mild MR. -> Per cardiology note in 2014, pt appears to be on Bumex for intermittent fluid retention as opposed to CHF. -> Patient had cardiac cath in 2009 in [place] which revealed mild nonobstructive CAD. - Unclear indication for carvedilol, will hold at this time given patient is normotensive. - Home lisinopril 2.5mg (home dose is 5mg) started for renal protective effects given pt is diabetic. Adjust as needed. Hyperlipidemia - Continue home atorvastatin. Hypothyroidism: - Patient's last TSH 2.11 in February 2019. - Continue home levothyroxine 88mcg daily. Code Status: FULL CODE FEN/GI: DM2 diet DVT ppx: Heparin 5000u SQ q8h Dispo: Med/Surg. Pending placement to LTAC. (2) Deep tissue injury: (3) CAD (coronary artery disease): (4) Anemia: (5) Chronic indwelling Garcia catheter: (6) Chronic respiratory failure with hypoxia and hypercapnia: (7) Hypertension: (8) ZACKARY (obstructive sleep apnea): (9) DM II (diabetes mellitus, type II), controlled: (10) COPD (chronic obstructive pulmonary disease): (11) Hypothyroid: (12) Sepsis: Admission and Anticipated Discharge Date Admission Date: November 10, 2019 Supervising Physician Co-Signing Physician Notes I personally examined the patient and verified all song points of history and exam, discussed case, and agree with decision making with Dr Mauricio. wants to stay here and have insurance view [facility] as her LTAC. discussed they will likely not be able to do this. otherwise main complaint is related to hemorrhoids - Sacral decubitus ulcer, posterior thigh wound s/p debridement several times with Dr. Kay, wound vac in place continue on Imipenem for several weeks still working on dispo issues pain control, vac, would care otherwise as above Subjective Patient without acute events overnight. Turned well with PRN morphine. Complaints of intermittent irritation at catheter site. No hematuria. No abdominal pain, SOB, CP, diarrhea. Last BM yesterday, hard. Refused several stool softeners due to concern for diarrhea with wounds on backside. Review of Systems Constitutional: no fever and no chills Respiratory: no cough, no dyspnea and no wheezing Cardiovascular: no chest pain, no palpitations and no edema Gastrointestinal: + nausea (intermittent, baseline chronic); no abdominal pain and no vomiting Genitourinary: no dysuria and no hematuria discomfort at urethra, no hematuria Physical Exam Constitutional: + morbidly obese; no acute distress Respiratory: normal respiratory effort; no labored breathing and no cough Auscultation: + diminished lung sounds (Bilateral lung bases) Cardiovascular: Rate/Rhythm: regular rate and regular rhythm Gastrointestinal (Abdomen): normal bowel sounds, soft, nontender, no hep atosplenomegaly Skin: chronic venous stasis changes in b/l LE Genitourinary: urine collection bag with clear yellow urine, no gopi hematuria Results & Data ([facility]) Vital Signs (Past 12 Hours) Vital Signs Temp Pulse Resp BP Pulse Ox 12/11/19 08:26 36.7 C 78 18 112/69 100 Resident Activity Tracking Resident Involvement: Resident Care Provided Care Provided: Adult [facility] 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
--- NOTE | 2019-12-11 18:08 | Billing Data ---
Date of Service December 11, 2019 Coding Level of Care Code 50213 Subseq Hosp Care Lvl 2
[2019-12-11] MEDS: POLYETHYLENE (MIRALAX) 17 GM PACK PO PRN (19:57)
[2019-12-11] MEDS ORDERED: ATORVASTATIN 10 MG TAB PO SCH (21:00)
[2019-12-11] MEDS ORDERED: OMEGA-3 (PURIFIED FISH OIL) 1 GM CAP PO SCH ×2 (21:00)
[2019-12-12] MEDS: MoRPHine SULFATE 2 MG/ML CARP IV PRN ×4 (03:02→14:00)
[2019-12-12] MEDS: IMIPENEM/CILASTATIN SODIUM 500 MG in DEXTROSE 5% 100 ML IV SCH ×2 (03:07→10:00)
[2019-12-12] MEDS: HEPARIN SOD 5,000 UNIT/0.5 ML VIAL SQ SCH (05:32)
[2019-12-12 06:06] LABS: Creatinine Clr Calc Pharmacy 85.8 ml/min; Est GFR (African American) 67.8; Est GFR (Non-African American) 58.5
[2019-12-12] MEDS ORDERED: LEVOTHYROXINE SODIUM 88 MCG TABLET PO SCH (06:30)
[2019-12-12] MEDS: BISMUTH SUBSALICYLATE SUSP PO PRN (08:25)
[2019-12-12] MEDS: UMECLIDINIUM BROMIDE 62.5MCG/BLISTER 7 PUFFS/INHALER INH SCH (08:29)
[2019-12-12] MEDS: BUMETANIDE 1 MG TAB PO SCH (08:31)
[2019-12-12] MEDS: FLUTICASONE/VILANTEROL 100/25MCG 14 PUFFS/INHALER INH SCH (08:31)
[2019-12-12] MEDS: NYSTATIN OINT 15 GM TUBE EXT SCH (08:33)
[2019-12-12] MEDS: GABAPENTIN 300 MG CAP PO SCH (08:34)
[2019-12-12] MEDS: PANTOprazole 40 MG TAB PO SCH (08:34)
[2019-12-12] MEDS: CHOLECALCIFEROL 1,000 UNITS 25 MCG TAB PO SCH (08:35)
[2019-12-12] MEDS: INSULIN ASPART 100 UNITS/ML 3 ML PEN SC SCH ×2 (08:37→13:14)
[2019-12-12] MEDS: INSULIN HUMAN NPH SC SCH (08:39)
[2019-12-12] MEDS: OXYCODONE HCL IR 5 MG TAB (IMMEDIATE RELEASE) PO SCH ×2 (08:48→12:45)
[2019-12-12] MEDS: DOCUSATE SODIUM 100 MG CAP PO SCH (08:48)
[2019-12-12] MEDS: DOCUSATE SODIUM/SENNA 50/8.6MG TAB PO SCH (08:48)
[2019-12-12] MEDS: POLYETHYLENE (MIRALAX) 17 GM PACK PO SCH ×2 (08:48→08:53)
[2019-12-12] MEDS ORDERED: ATORVASTATIN 10 MG TAB PO SCH (09:00)
[2019-12-12] MEDS: POLYETHYLENE (MIRALAX) 17 GM PACK PO PRN (11:35)
[2019-12-12] MEDS: FERROUS SULFATE 325 MG TAB PO SCH (11:36)
[2019-12-12] MEDS: MAGNESIUM OXIDE 400 MG TAB PO SCH (11:36)
[2019-12-12] MEDS: ZINC SULFATE 220 MG CAPSULE PO SCH (11:37)
[2019-12-12] MEDS: ONDANSETRON INJ 2 MG/ML 2 ML VIAL IV PRN (11:40)
--- NOTE | 2019-12-12 13:18 | Discharge Summary ---
Date of Service December 12, 2019 Admission HPI Per Admitting Provider 64 y/o F c/o worsening R gluteal infection. Pt was d/c'd from [facility] on 10/20 for same dx. She completed a course of abx on 11/04. She has had [facility] for home wound care throughout this time. Last visit was on Tuesday. There have been concerns from pt's family that infection is worsening again. Pt states she has increased pain the area as well. Pt denies fever, SOB, chest pain, abd pain, n/v/c/d. Pt generally has LE swelling and it is at its usual. She has been having increased b/l LE pain the last few days, which she thinks is related to positional issues related to her infection. She has been able to eat without issue. Fevers were reported by her family. Pt is not certain about this. Pt has a chronic Barboza. When asked why, she states it is because she cannot get out of bed at all. Admission Exam Per Admitting Provider Constitutional: WD/WN, vitals as above Eyes: normal visual paez by confrontation and + anicteric sclerae Neck: normal visual inspection and trachea midline Respiratory: normal respiratory effort, lungs clear to auscultation Cardiovascular: Rate/Rhythm: regular rate and regular rhythm Gastrointestinal (Abdomen): Inspection/Auscultation: abdomen not distended Percussion/Palpation: abdomen soft; abdomen nontender Musculoskeletal: Head/Neck/Chest: normocephalic and head atraumatic chronic b/l LE edema, peripheral pulses intact Skin: b/l LE and UE with chronic appearing skin changes Neurologic: awake; not confused Speech / Cognition: normal speech Psychiatric: A+Ox3, euthymic affect Principal Diagnosis sepsis 2/2 sacral and thigh decubitus wounds, improving anemia of chronic disease Discharge Exam Constitutional: + morbidly obese; no acute distress Respiratory: normal respiratory effort; no labored breathing and no cough Auscultation: + diminished lung sounds (Bilateral lung bases) Cardiovascular: Rate/Rhythm: regular rate and regular rhythm Gastrointestinal (Abdomen): normal bowel sounds, soft, nontender, no hepatosplenomegaly Skin: chronic venous stasis changes in b/l LE Genitourinary: urine collection bag with clear yellow urine, no gopi hematuria Discharge Data Allergies Allergy/AdvReac Type Severity Reaction Status Date / Time cephalexin [From Keflex] Allergy Mild Rash Unverified 11/10/19 15:07 Consultations 11/10/19 15:06 ED Decision to Admit Stat 11/10/19 19:30 Consult Case Management - Discharge Planning Routine 11/11/19 16:08 Consult General Surgery Routine 11/12/19 14:50 Consult Wound Care Provider Routine 11/14/19 13:54 Consult Cardiology Routine 12/05/19 14:24 Consult Palliative Care Routine 12/06/19 12:17 Consult Case Management - Discharge Planning Routine Procedures Performed Operation Date: 11/12/19 09:35 <No data on this case meets the specified criteria> Operation Date: 11/14/19 07:00 <No data on this case meets the specified criteria> Operation Date: 11/16/19 08:30 Actual Procedures p Debridement of Buttock and Sacral Decubitus, Application of Wound Vac(Not Applicable) - Anil Kay MD Operation Date: 12/04/19 12:50 Actual Procedures p Sacral Decubitus and Thigh Debridement(Not Applicable) - Anil Kay MD Hospital Course (1) Decubital ulcer: Ms. Ayoub is a 64 year old female with a past medical history of CKD, DM2, morbid obesity with bedbound status and chronic Barboza, sacral decubitus ulcers, anemia of chronic disease admitted 11/09 for worsening R gluteal infection, started on Unasyn and debrided 11/15. 11/28 had a wound culture which grew Pseudomonas, Proteus, and Klebsiella and was started on imipenem/cilastatin. Admitted for worsening of her decubitus ulcerations this admission, and s/p surgical debridement x2. Now with clinical improvement of wounds and awaiting placement at likely LTAC. Sepsis 2/2 infected sacral decubitus and thigh wounds, improving: - From cellulitis from posterior sacral and thigh wounds. - Recent wound culture grew Pseudomonas, Proteus, and Klebsiella. - Had sacral decubitus and thigh debridement on both 11/15 and 12/03 w/Dr. Kay. - Per prior notes may require plastic surgery for wound flap if extensive enough tissue removal however patient compliance could be an issue. - Frequent turning to prevent further tissue breakdown. Pt was refusing to be turned intermittently, is more amenable with morphine 2mg IV administration prior. - Wound care following -> wound vac in place, replaced q3-4 days. Per notes wounds are improving. - Continue imipenem/cilastatin 500mg in 110mL (infused over one hour) daily, started this Abx on 11/30. Will need at least 14 days of abx. Hypercalcemia - Calcium has been elevated on AM labs, corrected to approx 12.4 for low albumin on 12/07 however this was with albumin from 11/09. - Normal phosphorous, Vit D and PTH levels indicating less likely to be 2/2 to endocrine related pathology. - There was concern for potential osteomyelitis however per operative notes, decubitus ulcer extends into fat, but no evidence of bony involvement. Also less likely given negative BCx and downtrending CRP from admission. - CRP 4.7 down to 1.85, ESR values similar, 85 -> 90. - Calcium today corrected for albumin also collected today is 11.3; minimally elevated. - No need for repeat imaging to assess for osteomyelitis at this time however should patient's WBC uptrend suddenly despite significant Abx therapy could consider repeating. DM2: Pharmacy Note from yesterday: Basal insulin - increased NPH 75 units BIDM Bolus insulin NovoLog per scale ACHS or Q6hrs while NPO Goal Range: Low 110 mg/dL - High 140 mg/dL Correction Factor: 5 mg/dL/unit Carb ratio: 1 unit for every 2 grams CHO consumed - Last Hgb A1c 6.5 on U500 insulin pump. - Insulin titration per pharmacy: - Resume U-500 insulin pump upon patient discharge. If LTAC and patient prefer, could discharge on basal-bolus just while at SNF, then transition back to U-500 pump upon discharge from LTAC. Chronic respiratory failure, multifactorial (COPD, ZACKARY, obesity hypoventilation syndrome): - Currently at baseline O2 requirement of 3LNC. - Nocturnal pulse ox showed patient had SpO2 drop to ~40% for about 2 minutes while sleeping, despite being on 3LNC. - Patient refused BiPAP - she was made aware that having an oxygen level that low from not wearing BiPAP can cause things as significant as cardiac arrest, still declines. - Continue home Wixela, Spiriva. - Increased oxygen to 5LNC at night. Likely patient will obstruct despite this however pt feels more comfortable on more oxygen at night. - Pt is amenable to home nasal CPAP/BiPAP; would need formal sleep study to qualify. Hx recurrent UTI with chronic indwelling Barboza catheter: - Barboza catheter was leaking last week and required several changes -> resolved w/changing catheter and inflating balloon to 30cc on 12/07. - Pt now reporting discomfort at catheter site, ddx: secondary to mechanical trauma w/repeated Barboza changes vs. UTI, vs. inflating balloon to 30cc. - Patient not currently reporting bladder spasms -> can try decreasing balloon inflation by 5cc if these return. - UA positive for 1+ bacteria, no nitrites positive LE, yeast -> Streptococcus species and Natacha non-albicans. Will not alter Abx until results return. Natacha on UCx unsurprising given chronic indwelling barboza. - Patient intermitently complaints of urethral discomfort, likely 2/2 mechanical trauma from repeated barboza changes this admission. Lidocaine gel prn. Chronic pain syndrome: - Continue home meds, continue IV morphine PRN pain before rolling. - Consulted Palliative Care for pain management and goals of care: - Attempted to change home med of oxycodone IR 20mg QID to oxycodone ER 40mg BID, but patient was resistant to changes in her meds. Constipation - Patient reported constipation this admission but is resistant to stool softeners due to fear of diarrhea with her buttock wounds. -> Likely secondary to opioid usage and sedentary lifestyle. -> Patient receiving Senna, Colace, Miralax with one hard BM overnight. Will not adjust medications at this time as pt does not want increases due to concern for diarrhea. -> No abdominal discomfort this AM. Anemia: - Has a history of iron deficiency and anemia of chronic disease, with levels as low as 6 this admission. Baseline 8-9. - Was transfused 2u PRBCs with return to baseline Hgb levels early in her admission. - No signs or symptoms of active bleeding. At baseline Hgb. Continue to monitor. - Continue iron and B12 supplementation. Hypertension/Non-obstructive CAD - BP normotensive to hypotensive, continue Bumex. - Patient's home regimen consists of carvedilol, lisinopril and Bumex. - ECHO performed in 10/2019 w/EF of 55-60% and mild MR. -> Per cardiology note in 2014, pt appears to be on Bumex for intermittent fluid retention as opposed to CHF. -> Patient had cardiac cath in 2009 in [place] which revealed mild nonobstructive CAD. - Unclear indication for carvedilol, will hold at this time given patient is normotensive. - Home lisinopril 2.5mg (home dose is 5mg) started for renal protective effects given pt is diabetic. Adjust as needed, can return to 5mg daily if BP tolerates. Hyperlipidemia - Continue home atorvastatin. Hypothyroidism: - Patient's last TSH 2.11 in February 2019. - Continue home levothyroxine 88mcg daily. Code Status: FULL CODE FEN/GI: DM2 diet DVT ppx: Heparin 5000u SQ q8h (2) Deep tissue injury: (3) CAD (coronary artery disease): (4) Anemia: (5) Chronic indwelling Barboza catheter: (6) Chronic respiratory failure with hypoxia and hypercapnia: (7) Hypertension: (8) ZACKARY (obstructive sleep apnea): (9) DM II (diabetes mellitus, type II), controlled: (10) COPD (chronic obstructive pulmonary disease): (11) Hypothyroid: - Patient's last TSH - Continue home levothyroxine 88mcg daily. (12) Sepsis: Total Time Total Time Spent Total Time Spent (In Minutes): <30 Discharge Plan Discharge Items Patient Disposition: Trans Resident Long-Term Care Reason For Visit: RECURRENT CELLULITIS Discharge Diagnosis: buttock and thigh multimicrobial ulcers without osteomyelitis Activity: Per Instructions section Non-emergency contact: Primary Care Provider Call non-emergency contact if: you have any medication questions, your pain is worsening and your temperature is above 101 Follow-up/Referrals: Robbie Yeh [Primary Care Provider] - Diet: Carb Consistent or DM2 and Heart Healthy Addtl Attending Provider Instructions: Ms. Ayoub is a 64 year old female with a past medical history of CKD, DM2, morbid obesity with bedbound status and chronic Barboza, sacral decubitus ulcers, anemia of chronic disease admitted 11/09 for worsening R gluteal infection, started on Unasyn and debrided 11/15. 11/28 had a wound culture which grew Pseudomonas, Proteus, and Klebsiella and was started on imipenem/cilastatin. Admitted for worsening of her decubitus ulcerations this admission, and s/p surgical debridement x2. Now with clinical improvement of wounds and awaiting placement. Sepsis 2/2 infected sacral decubitus and thigh wounds: - From cellulitis from sacral and thigh wounds. - Wound culture grew Pseudomonas, Proteus, and Klebsiella. - Had sacral decubitus and thigh debridement on both 11/15 and 12/03 w/Dr. Kay. - Per prior notes may require plastic surgery for wound flap if extensive enough tissue removal however patient compliance could be an issue, and per wound care her wounds are healing despite intermittent refusal of turns. - Frequent turning to prevent further tissue breakdown. Pt was refusing to be turned intermittently, is more amenable with morphine 2mg IV administration prior. - Wound care following -> wound vac replaced 12/09. - Continue imipenem/cilastatin 500mg in 110mL (infused over one hour) daily, started this Abx on 11/30. Will continue a total of 14 days of abx. Hypercalcemia - Calcium has been elevated on AM labs, corrected to approx 12.4 for low albumin on 12/07 however this was with albumin from 11/09. - Normal phosphorous, Vit D and PTH levels indicating less likely to be 2/2 to endocrine related pathology. - There was concern for potential osteomyelitis however per operative notes, decubitus ulcer extends into fat, but no evidence of bony involvement. Also less likely given negative BCx and downtrending CRP from admission. - CRP 4.7 down to 1.85, ESR values similar, 85 -> 90. - Calcium today corrected for albumin also collected today is 11.3; minimally elevated. - No need for repeat imaging to assess for osteomyelitis at this time however should patient's WBC uptrend suddenly despite significant Abx therapy could consider repeating. DM2: - Last Hgb A1c 6.5 on U500 insulin pump. - Insulin titration per pharmacy: - Resume U-500 insulin pump upon patient discharge home. If LTAC and patient prefer, could discharge on basal-bolus just while at SNF, then transition back to U-500 pump upon discharge from LTAC/SNF. Chronic respiratory failure, multifactorial (COPD, ZACKARY, obesity hypoventilation syndrome): - Currently at baseline O2 requirement of 3LNC. - Nocturnal pulse ox showed patient had SpO2 drop to ~40% for about 2 minutes while sleeping, despite being on 3LNC. - Patient refused BiPAP - she was made aware that having an oxygen level that low from not wearing BiPAP can cause things as significant as cardiac arrest, still declines. - Continue home Wixela, Spiriva. - Increased oxygen to 5LNC at night. Likely patient will obstruct despite this however pt feels more comfortable on more oxygen at night. Hx recurrent UTI with chronic indwelling Barboza catheter: - Barboza catheter was leaking last week and required several changes -> resolved w/changing catheter and inflating balloon to 30cc on 12/07. - Pt now reporting discomfort at catheter site, ddx: secondary to mechanical trauma w/repeated Barboza changes vs. UTI, vs. inflating balloon to 30cc. - Patient not currently reporting bladder spasms -> can try decreasing balloon inflation by 5cc if these return. - UA positive for 1+ bacteria, no nitrites positive LE, yeast -> UCx collected but multimicrobial and unable to differentiate, recommended repeat UCx. Repeat UCx pending. Will not alter Abx until results return. May require antifungal given presence of yeast on UA. Chronic pain syndrome: - Continue home meds, continue IV morphine PRN pain before rolling. - Consulted Palliative Care for pain management and goals of care: - Attempted to change 20mg QID oxycodone IR to oxycodone ER 40mg BID, but patient was resistant to changes in her meds. Constipation - Patient reported significant constipation yesterday, last BM 4 days ago. -> Likely secondary to opioid usage and sedentary lifestyle. -> Patient receiving Senna, Colace, Miralax with one hard BM overnight. Will not adjust medications at this time as pt does not want increases due to concern for diarrhea. -> No abdominal discomfort this AM. Anemia: - Has a history of iron deficiency and anemia of chronic disease, with levels as low as 6 this admission. Baseline 8-9. - Was transfused 2u PRBCs with return to baseline Hgb levels early in her admission. - No signs or symptoms of active bleeding. At baseline Hgb. Continue to monitor. - Continue iron and B12 supplementation. Hypertension/Non-obstructive CAD - BP normotensive to hypotensive, continue Bumex. - Patient's home regimen consists of carvedilol, lisinopril and Bumex. - ECHO performed in 10/2019 w/EF of 55-60% and mild MR. -> Per cardiology note in 2014, pt appears to be on Bumex for intermittent fluid retention as opposed to CHF. -> Patient had cardiac cath in 2009 in [place] which revealed mild nonobstructive CAD. - Unclear indication for carvedilol, will hold at this time given patient is normotensive. - Home lisinopril 2.5mg (home dose is 5mg) started for renal protective effects given pt is diabetic. Adjust as needed. Hyperlipidemia - Continue home atorvastatin. Hypothyroidism: - Patient's last TSH 2.11 in February 2019. - Continue home levothyroxine 88mcg daily. Code Status: FULL CODE FEN/GI: DM2 diet DVT ppx: Heparin 5000u SQ q8h Pending Studies at Discharge: No Stand-Alone Forms: My [facility] Skilled Items Patient informed of condition?: Yes DNR: No Discharge Level of Care: Other Communicable Disease: No Discharge Prognosis: Improving Lines: Peripheral IV Urinary Catheter: Yes Medications and DC Order Prescriptions: New polyethylene glycol 3350 [Miralax] 17 gram Powder In Packet 17 g PO DAILY Qty: 10 RF: 0 sennosides-docusate sodium [Senokot-S] 8.6-50 mg Tablet 1 tab PO BID Qty: 10 RF: 0 lidocaine HCl 2 % Jelly 3 ml EXT BID PRN (Reason: urethral discomfort) 10 Days Qty: 5 RF: 0 pantoprazole 40 mg Tablet,Delayed Release (Dr/Ec) 40 mg PO QAM Qty: 10 RF: 0 bismuth subsalicylate [Bismatrol] 262 mg/15 mL Suspension 524 mg PO TID PRN (Reason: diarrhea) 10 Days Qty: 118 RF: 0 Novolin N NPH U-100 Insulin 100 unit/mL Suspension 75 unit SC BIDM Qty: 10 RF: 0 docusate sodium 100 mg Capsule 100 mg PO BID Qty: 10 RF: 0 bumetanide 1 mg Tablet 0.5 mg PO BID17 10 Days Qty: 5 RF: 0 lisinopril 2.5 mg Tablet 2.5 mg PO QAM Qty: 10 RF: 0 insulin aspart U-100 [Novolog Flexpen U-100 Insulin] 100 unit/mL (3 mL) Insulin Pen See Rx Instructions .ROUTE .COMPLEX Qty: 10 RF: 0 Continued levothyroxine 88 mcg tablet 88 mcg PO QAM RF: 0 zinc 50 mg Tablet 50 mg PO DAILY@1200 RF: 0 atorvastatin 10 mg Tablet 10 mg PO HS RF: 0 ondansetron HCl 4 mg tablet 4 mg PO Q6H PRN (Reason: Nausea) RF: 0 Calmoseptine 0.44-20.6 % Ointment 1 applic TOPICAL BID PRN (Reason: Skin Irritation) RF: 0 docusate sodium 100 mg Capsule 100 mg PO BID RF: 0 nystatin 100,000 unit/gram Powder 1 applic TOPICAL BID RF: 0 Spiriva with HandiHaler 18 mcg Capsule, W/Inhalation Device 1 cap INHALATION QAM RF: 0 oxycodone 20 mg Tablet 20 mg PO QID RF: 0 cholecalciferol (vitamin D3) [Vitamin D3] 5,000 unit Tablet 5,000 unit PO WE RF: 0 cyanocobalamin (vitamin B-12) 1,000 mcg/mL Kit 1,000 mcg IM Q30D RF: 0 gabapentin 300 mg Capsule 300 mg PO TID Qty: 90 RF: 0 magnesium oxide 400 mg magnesium Capsule 400 mg PO DAILY@1200 RF: 0 ferrous sulfate 325 mg (65 mg iron) tablet 325 mg PO DAILY@1200 RF: 0 omega 4-tna-qur-fish oil [Fish Oil] 1,000 mg (120 mg-180 mg) Capsule 1 cap PO HS RF: 0 fluticasone propion-salmeterol [Wixela Inhub] 250-50 mcg/dose blister with device 1 inh inhalation BID RF: 0 Discontinued insulin regular hum U-500 conc [Humulin R U-500 (Conc) Insulin] 500 unit/mL solution See Rx Instructions .ROUTE .COMPLEX Qty: 20 RF: 2 omeprazole 20 mg capsule,delayed release(DR/EC) 20 mg PO QAM RF: 0 bumetanide 1 mg tablet 1 mg PO BID RF: 0 lisinopril 5 mg tablet 5 mg PO DAILY@12 RF: 0 nitrofurantoin macrocrystal 50 mg Capsule 50 mg PO HS RF: 0 carvedilol 3.125 mg Tablet 3.125 mg PO BID RF: 0 cranberry 450 mg Tablet 450 mg PO DAILY@1200 RF: 0 Discharge Orders: Discharge Order (Routine); Ordered 12/12/19 Ordered By: Delmy Peterson/Other Patient Handouts: Diabetes Manage A1C Test Admission Data Admit Date/Time: 11/10/19 18:15 Attending Provider: Jim Hong Admit Provider: Annita Harrison Primary Care Provider: Palmetto,Robbie Other Providers: Guillermo Gamez ; Zoila Moncada ; Zoila Manriquez at [place] ; Jones,[place] ; Edy Rosas ; Annita Harrison ; Luc Arce ; Eugenio Hathaway ; Hang Espinosa ; Johana Ritchie ; Maureen Harper ; Shabbir Snow Other Interventions: Discharge Summary Assessment (RN) Last Done: 12/12/19 13:41 DC Date/Time DO NOT enter until pt leaves facility: 12/12/19 14:22 Supervising Physician Co-Signing Physician Notes I personally examined the patient and verified all song points of history and exam, discussed case, and agree with decision making with Dr Mauricio. wants to stay here, but understands reason for transfer to LTAC vitals noted emotionally a little upset but then with time calms, otherwise nad heent nc at mmm breathing unlabored no accessory muscles good effort - Sacral decubitus ulcer, posterior thigh wound s/p debridement several times with Dr. Kay, wound vac in place continue on Imipenem for at least 14 days total, ongoing +/- based on progress for LTAC today pain control, vac, would care otherwise as above Resident Activity Tracking Resident Involvement: Resident Care Provided Care Provided: Adult Hospital Medicine
--- NOTE | 2019-12-12 18:47 | Billing Data ---
Date of Service December 12, 2019 Coding Level of Care Code D/C Day Management <30 mins
== END 2019-12-12 14:22 | DRG 853 ==
LOC: ED 12:57 → 3E 18:15 → SUATTDRO 18:15 → 3E 18:49 → 2N 22:33 → 3N 12-06 00:02 → 3E 12-09 17:37